=== PATIENT | female | born 1965 | race Caucasian/White ===

== ENCOUNTER 2022-12-19 18:45 | Emergency (ER) | payer BC, SELFPAY ==
[2022-12-19] VITALS (15 sets, daily range): BP systolic 136–209; BP diastolic 83–116; PULSE 94; RESP 24; TEMP 36.8; O2SAT 97; BMI 45.3
--- NOTE | 2022-12-19 19:54 | ED.BACK1 ---
HPI - Back Pain/Injury General Chief Complaint: Back Pain/Injury Stated Complaint: BACK PAIN Time Seen by Provider: 12/19/22 19:54 Source: patient Mode of arrival: ambulance Limitations: no limitations History of Present Illness HPI Narrative: patient presents with left sided back pain for a couple of days. Does not recall any injury. Increased pain with change in position. No urinary symptoms. Today her took her BP and it was elevated over 170 and he brought her in. no chest pain , dyspnea or nausea. No pain or numbness of her lower extremities. No fever or chills. Denies NELSON. Her only complaint is her back pain MD elicited complaint: Reports back pain Severity: moderate Similar Symptoms Previously: No Related Data Home Medications Medication Instructions Recorded Confirmed carvedilol 12.5 mg tablet 12.5 mg PO Q12H 12/19/22 12/19/22 furosemide 40 mg tablet 40 mg PO DAILY 12/19/22 12/19/22 hydroxychloroquine 200 mg tablet 200 mg PO DAILY 12/19/22 12/19/22 sacubitril 49 mg-valsartan 51 mg 1 tab PO BID 12/19/22 12/19/22 tablet (Entresto) tizanidine 4 mg tablet 8 mg PO .hs PRN muscles cramps 12/19/22 12/19/22 Allergies Allergy/AdvReac Type Severity Reaction Status Date / Time clobetasol [From Embeline] Allergy Severe shortness Verified 12/19/22 18:52 of breath sulfamethoxazole Allergy Severe Hives Verified 12/19/22 18:52 [From Bactrim] trimethoprim [From Bactrim] Allergy Severe Hives Verified 12/19/22 18:52 Review of Systems ROS Status of ROS 10 or more systems reviewed and unremarkable except as noted in history and below [facility] PFS Social History Smoking status: Never smoker Exam Constitutional Vital Signs - 24 hr 12/19/22 18:52 12/19/22 20:35 12/19/22 20:33 Temperature 98.2 F Pulse Rate [Monitor] 94 H Respiratory Rate 24 Blood Pressure 200/104 H 200/104 H Blood Pressure [Left Arm] 209/94 H Pulse Oximetry 97 Oxygen Delivery Method Room Air 12/19/22 20:51 12/19/22 21:02 12/19/22 21:53 Temperature Pulse Rate [Monitor] Respiratory Rate Blood Pressure 191/115 H 172/114 H 174/99 H Blood Pressure [Left Arm] Pulse Oximetry Oxygen Delivery Method 12/19/22 22:01 12/19/22 22:12 12/19/22 22:21 Temperature Pulse Rate [Monitor] Respiratory Rate Blood Pressure 144/83 H 176/116 H 156/90 H Blood Pressure [Left Arm] Pulse Oximetry Oxygen Delivery Method 12/19/22 22:31 12/19/22 22:31 12/19/22 22:42 Temperature Pulse Rate [Monitor] Respiratory Rate Blood Pressure 136/102 H 136/102 H 152/99 H Blood Pressure [Left Arm] Pulse Oximetry Oxygen Delivery Method 12/19/22 22:51 12/19/22 23:02 12/19/22 23:21 Temperature Pulse Rate [Monitor] Respiratory Rate Blood Pressure 173/97 H 169/86 H 170/96 H Blood Pressure [Left Arm] Pulse Oximetry Oxygen Delivery Method HENMT Common normals: normocephalic and head/scalp atraumatic Face and sinus: normal facial exam Eye Common normals: PERRL, EOMs intact bilaterally and conjunctivae normal Neck & C-Spine Common normals: full ROM and supple Chest Common normals: inspection of chest normal Other: left posterior chest wall and left parathoracic tenderness that reproduce symptoms. No CVA tenderness Respiratory Common normals: normal respiratory effort and no use of accessory muscles Cardio Common normals: regular rate, regular rhythm, S1 normal heart sound and S2 normal heart sound GI Common normals: Normal to inspection, nondistended, normoactive bowel sounds present and soft to palpation Back & Pelvis Common normals: no CVA tenderness and thoracic and lumbar spine normal to inspection Back image (female): 1. area of tenderness Extremity Common normals: normal to inspection, full ROM and normal capillary refill Neuro Common normals: oriented x3, CN's II-XII intact bilaterally, moves all extremities and no focal motor deficits Psych Appearance: grossly normal and well kempt Course Vital Signs Vital signs: Vital Signs Temperature 98.2 F 12/19/22 18:52 Pulse Rate 94 H 12/19/22 18:52 Respiratory Rate 24 12/19/22 18:52 Blood Pressure 209/94 H 12/19/22 18:52 Pulse Oximetry 97 12/19/22 18:52 Oxygen Delivery Method Room Air 12/19/22 18:52 Temperature 98.2 F 12/19/22 18:52 Pulse Rate 94 H 12/19/22 18:52 Respiratory Rate 24 12/19/22 18:52 Blood Pressure 170/96 H 12/19/22 23:21 Pulse Oximetry 97 12/19/22 18:52 Oxygen Delivery Method Room Air 12/19/22 18:52 MDM - Back Pain/Injury MDM Narrative Medical decision making narrative: patient presents with left pos. chest wall muscular back pain. She also was hypertensive with BP systolic >200. No chest pain or headache. Not short of breath. CTA chest neg for PE. Patient clinically does not have pneumonia. BP improved after one dose of hydralazine IVP. Patient still has pain after treatment in the department but it is decreased and now tolerable. Discharged home with Norflex and advised to follow up with her PCP reguarding her back pain and hypertension Lab Data Labs: Lab Results 12/19/22 Range/Units 20:15 WBC 10.6 (4.0-11.0) 10^3/uL RBC 3.83 L (4.20-5.40) 10^6/uL Hgb 12.1 (12.0-16.0) g/dL Hct 36.1 (36.0-48.0) % MCV 94.3 (81.0-99.0) fL MCH 31.6 (26.7-34.0) pg MCHC 33.5 (29.9-35.2) g/dL RDW 13.6 (11.0-15.0) % Plt Count 220 (150-450) 10^3/uL MPV 9.6 (9.5-13.5) fL Neut % (Auto) 76.1 H (43.0-75.0) % Lymph % (Auto) 13.6 L (20.5-60.0) % [place] % (Auto) 6.0 (1.7-12.0) % Eos % (Auto) 1.8 (0.9-7.0) % Baso % (Auto) 0.7 (0.2-2.0) % Neut # (Auto) 8.1 H (1.4-6.5) 10^3/uL Lymph # (Auto) 1.4 (1.2-3.8) 10^3/uL [place] # (Auto) 0.6 (0.3-0.8) 10^3/uL Eos # (Auto) 0.2 (0.0-0.7) 10^3/uL Baso # (Auto) 0.1 (0.0-0.1) 10^3/uL Sodium 140 (136-145) mmol/L Potassium 3.6 (3.5-5.1) mmol/L Chloride 105 (98-107) mmol/L Carbon Dioxide 25.8 (21.0-32.0) mmol/L Anion Gap 12.8 BUN 15.0 (7.0-18.0) mg/dL Creatinine 0.99 (0.55-1.02) mg/dL Est GFR ( Amer) >60 (>=60) Est GFR (Non-Af Amer) 58 L (>=60) BUN/Creatinine Ratio 15.2 Glucose 226 H (74-106) mg/dL Calcium 8.7 (8.5-10.1) mg/dL Total Bilirubin 0.4 (0.2-1.0) mg/dL AST 14 L (15-37) U/L ALT 47 (14-59) U/L Total Protein 6.5 (6.4-8.2) g/dL Albumin 3.3 L (3.4-5.0) g/dL Globulin 3.2 g/dL Albumin/Globulin Ratio 1.0 Discharge Plan Discharge Chief Complaint: Back Pain/Injury Clinical Impression: Hypertensive urgency, Strain of thoracic paraspinal muscles excluding T1 and T2 levels Prescriptions / Home Meds: No Action carvedilol 12.5 mg tablet 12.5 mg PO Q12H furosemide 40 mg tablet 40 mg PO DAILY hydroxychloroquine 200 mg tablet 200 mg PO DAILY Entresto 49-51 mg tablet 1 tab PO BID tizanidine 4 mg tablet 8 mg PO .hs PRN (Reason: muscles cramps) Instructions: Hypertension (ED), Thoracic Back Strain (ED) Stand Alone Forms: Portal Instructions Referrals: Ti Garza MD [Primary Care Provider] - 1 week Follow Up Appointments: follow up with your doctor in the next couple of days for recheck
--- NOTE | 2022-12-19 20:03 | CT_ITS ---
[address] [address] Patient Name: FELICITY PHILLIPS MRN: [id number] date: 1965 Sex: F Assigned Patient Location: ER Current Patient Location: ER Accession/Order Number: [id number] Exam Date: 12/19/2022 21:00 Report Date: 12/19/2022 22:41 At the request of: BC GUERRERO Procedure: CT angio chest EXAM: CT angio chest HISTORY: chest pain COMPARISON: CT chest 03/23/2017. TECHNIQUE: Thin section transaxial slices were acquired through the chest with intravenous contrast per PE protocol. Coronal and sagittal reconstructed images were reviewed. FINDINGS: PULMONARY ARTERIES: There is good opacification of the pulmonary vasculature. No pulmonary arterial filling defects are present. LUNGS/AIRWAYS: No areas of consolidation, suspicious nodule or mass are seen. There is mild bronchial wall thickening in bilateral lower lobes. Mild bibasilar atelectasis is seen. The central airways are patent. PLEURAL CAVITY: No pleural effusion or pneumothorax. HEART/PERICARDIUM: The heart is normal in size. No pericardial effusion. MEDIASTINAL/HILAR LYMPH NODES: No pathologically enlarged lymph nodes. CHEST WALL/AXILLA/LOWER NECK: Normal. VISUALIZED UPPER ABDOMEN: No acute abnormality. BONES: No acute process.. IMPRESSION: 1. No evidence of pulmonary embolism. 2. No evidence of pneumonia. Mild bronchial wall thickening in bilateral lower lobes, suggestive of viral or reactive small airways disease, in the appropriate clinical settings. Electronically authenticated by: CHON TYSONU Date: 12/19/2022 22:41
[2022-12-19 20:26] LABS: Basophils Absolute Auto 0.1 10^3/uL (0.0-0.1); Basophils Percent Auto 0.7 % (0.2-2.0); Eosinophils Absolute Auto 0.2 10^3/uL (0.0-0.7); Eosinophils Percent Auto 1.8 % (0.9-7.0); Hematocrit 36.1 % (36.0-48.0); Hemoglobin 12.1 g/dL (12.0-16.0); Immature Granulocytes Abs Auto 0.19 10^3/uL (0.00-0.03); Immature Granulocytes Pct Auto 1.8 % (0.0-0.5); Lymphocytes Absolute Auto 1.4 10^3/uL (1.2-3.8); Lymphocytes Percent Auto 13.6 % (20.5-60.0); Mean Corpuscular HGB Conc 33.5 g/dL (29.9-35.2); Mean Corpuscular Hemoglobin 31.6 pg (26.7-34.0); Mean Corpuscular Volume 94.3 fL (81.0-99.0); Mean Platelet Volume 9.6 fL (9.5-13.5); Monocytes Absolute Auto 0.6 10^3/uL (0.3-0.8); Neutrophils Absolute Auto 8.1 10^3/uL (1.4-6.5); Neutrophils Percent Auto 76.1 % (43.0-75.0); Platelet Count 220 10^3/uL (150-450); Red Blood Count 3.83 10^6/uL (4.20-5.40); Red Cell Distribution Width 13.6 % (11.0-15.0); White Blood Count 10.6 10^3/uL (4.0-11.0)
[2022-12-19] MEDS: ORPHENADRINE 60 MG/ 2 ML VIAL IV (20:30)
[2022-12-19] MEDS: HYDRALAZINE HCL 20 MG/ML VIAL 5 MG IVP (20:35)
[2022-12-19 20:43] LABS: Alanine Aminotransferase 47 U/L (14-59); Albumin Level 3.3 g/dL (3.4-5.0); Alkaline Phosphatase 115 U/L (46-116); Anion Gap 12.8; Aspartate Amino Transferase 14 U/L (15-37); BUN Creatinine Ratio 15.2; Bilirubin Total 0.4 mg/dL (0.2-1.0); Calcium 8.7 mg/dL (8.5-10.1); Carbon Dioxide 25.8 mmol/L (21.0-32.0); Chloride 105 mmol/L (98-107); Estimated GFR (African America >60 (>=60); Estimated GFR (Non-African Ame 58 (>=60); Globulin 3.2 g/dL; Glucose 226 mg/dL (74-106); Potassium 3.6 mmol/L (3.5-5.1); Sodium 140 mmol/L (136-145); Total Protein 6.5 g/dL (6.4-8.2)
[2022-12-19] MEDS: FENTANYL CITRATE/PF 100 MCG/2 ML VIAL 50 MCG IV (21:46)
[2022-12-20 00:40] VITALS: BP 159/91; PULSE 87; RESP 18; O2SAT 98
== END 2022-12-20 00:43 | disposition home or self-care (01) ==
PROVIDERS: Emergency Provider Internal Medicine; PCP Family Medicine
DX: I16.0 Hypertensive urgency (principal); S29.012A Strain of muscle and tendon of back wall of thorax, initial encounter; X58.XXXA Exposure to other specified factors, initial encounter
CPT/HCPCS: 36415; 71275; 80053; 85025; 96372; 96374; 96375; 99285; Q9967

== ENCOUNTER 2023-06-21 11:20 | Outpatient (OUT) | payer BC, SELFPAY ==
--- NOTE | 2023-06-21 11:33 | XR_ITS ---
The [address] [address] Patient Name: FELICITY PHILLIPS MRN: [id number] date: 1965 Sex: F Assigned Patient Location: [facility] Current Patient Location: Accession/Order Number: [id number] Exam Date: 06/21/2023 11:35 Report Date: 06/22/2023 01:30 At the request of: JOSE ANTONIO QUINN Procedure: XR hip RT 2V w/ pelvis PROCEDURE: XR hip RT 2V w/ pelvis HISTORY: Acute Right Hip Pain M25.551 ; low back pain; history of pelvic fracture COMPARISON: XR hips bilateral 02/15/2022, CT pelvis 11/13/2022 FINDINGS: BONES:Prior fractures with callus formation and incomplete osseous healing of the right superior and inferior pubic rami no significant narrowing of the hip joint spaces or articular surface irregularity. No new fracture. SOFT TISSUES:No visible soft tissue swelling. EFFUSION:None visible. OTHER: Negative. XR/XR hip RT 2V w/ pelvis IMPRESSION: 1. Prior fractures of the right superior and inferior pubic rami with surrounding bone formation,, corticated fracture ends, and wide fracture lines suggesting continued motion at fracture sites and pseudoarticulation. Electronically authenticated by: JOSÉ MIGUEL SERNA Date: 06/22/2023 01:30
--- NOTE | 2023-06-21 11:33 | XR_ITS ---
[address] [address] Patient Name: FELICITY PHILLIPS MRN: [id number] date: 1965 Sex: F Assigned Patient Location: [facility] Current Patient Location: [facility] Accession/Order Number: [id number] Exam Date: 06/21/2023 11:36 Report Date: 06/21/2023 12:47 At the request of: JOSE ANTONIO QUINN Procedure: XR lumbar spine 2-3V EXAM: XR lumbar spine 2-3V HISTORY: Acute Right Hip Pain M25.551 COMPARISON: None. TECHNIQUE: 2 views Findings/impression: Anterolisthesis of L4 over L5 by 8 mm. Maintained vertebral body heights. Multilevel endplate degenerative changes, disc disease, and facet arthropathy of L4-S1. No acute fracture. Nonobstructive bowel gas pattern. Electronically authenticated by: TORI RANDOLPH Date: 06/21/2023 12:47
== END 2023-06-21 11:21 | disposition home or self-care (01) ==
LOC: RAD 11:21
PROVIDERS: PCP Family Medicine; Visit Provider Family Medicine
DX: M25.551 Pain in right hip (principal)
CPT/HCPCS: 72100; 73502

== ENCOUNTER 2023-06-29 06:47 | Outpatient (OUT) | payer BC, SELFPAY ==
--- NOTE | 2023-06-29 06:51 | MR_ITS ---
[place] [id number] Patient Name: FELICITY PHILLIPS MRN: [id number] date: 1965 Sex: F Assigned Patient Location: MRI Current Patient Location: MRI Accession/Order Number: [id number] Exam Date: 06/29/2023 07:00 Report Date: 06/29/2023 09:22 At the request of: JOSE ANTONIO QUINN Procedure: MR lumbar spine wo con TITLE: MR lumbar spine wo con COMPARISON: 2020 lumbar spine MRI CLINICAL HISTORY: Degenerative disc disease M51.36. Back pain radiating to the lower extremity TECHNIQUE: Sagittal T1, sagittal T2 FSE, sagittal STIR, and axial T2 FSE. FINDINGS: 6 mm anterolisthesis L4 on L5. Disc space narrowing and mild type II Modic endplate marrow changes. Disc desiccation at the lower thoracic spine as well as L3-4 and L4-5. The conus medullaris terminates at L1 and appears unremarkable. Disc desiccation mild disc bulges at T10-11 and T11-12. No obvious stenosis. T12-L1: Normal disc space. No stenosis L1-L2:Normal disc space. No stenosis. L2-3: Tiny central disc protrusion. No significant stenosis L3-4: Disc desiccation. Mild left paracentral disc protrusion. Bilateral facet hypertrophy. No significant stenosis L4-5: Diffuse disc bulge extending cephalad above the disc space. Lateral osteophyte and disc formation. No listhesis is due to moderate bilateral facet hypertrophy. Fluid in the articular facets. Moderate to severe central canal and right-sided foraminal narrowing. Moderate left L5-S1: Normal disc space. Bilateral facet hypertrophy. No significant stenosis MR/MR lumbar spine wo con IMPRESSION: DEGENERATIVE CHANGES OF THE LUMBAR SPINE MOST L3-4 AND L4-5 DISC DESICCATION AND SMALL DISC PROTRUSION L3-4 FACET HYPERTROPHY, BROAD-BASED DISC BULGE AND FACET HYPERTROPHY L4-5. MODERATE TO SEVERE CENTRAL CANAL AND RIGHT FORAMINAL NARROWING Electronically authenticated by: TORRES TELLES Date: 06/29/2023 09:22
== END 2023-06-29 06:48 | disposition home or self-care (01) ==
LOC: MRI 06:48
PROVIDERS: PCP Family Medicine; Visit Provider Family Medicine
DX: M51.36 Other intervertebral disc degeneration, lumbar region (principal)
CPT/HCPCS: 72148

== ENCOUNTER 2023-08-08 08:09 | Outpatient (OUT) | payer BC, SELFPAY ==
--- NOTE | 2023-08-08 | XR_ITS ---
The [address] [address] Patient Name: FELICITY PHILLIPS MRN: [id number] date: 1965 Sex: F Assigned Patient Location: [facility] Current Patient Location: [facility] Accession/Order Number: [id number] Exam Date: 08/08/2023 08:23 Report Date: 08/08/2023 08:49 At the request of: JOSÉ MIGUEL WISDOM Procedure: XR pelvis 1-2V PROCEDURE: XR pelvis 1-2V DATE: 08/08/2023 8:23 AM EST COMPARISONS: 06/21/2023 CLINICAL INDICATION: PELVIS PAIN FINDINGS: There is again deformity of the superior and inferior pubic rami. There is lucency of the superior and inferior pubic rami consistent with fractures. There is callus formation adjacent to these fractures. There is corticated margins of the fracture site. The findings suggests residual deformity from old fractures possibly with nonunion and continued pseudoarticulation at the fracture sites. The amount of callus formation has progressed slightly since 06/21/2023 5 the lucency at the fracture sites has not changed significantly. No new osseous abnormalities identified. XR/XR pelvis 1-2V IMPRESSION: Deformity of the superior and inferior pubic ramus on the right as discussed above. 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 Electronically authenticated by: LUKAS ARRIOLA Date: 08/08/2023 08:49
--- OUTSIDE RECORDS SUMMARY | 2023-08-08 08:18 | XMS_ITS | CCD ---
Author Name Unknown Address [address] [place] [address] Organization [facility] Care Team Providers Care Client Service Administrator Name Role Phone PHYSICIAN, DEFAULT Unavailable Unavailable PHYSICIAN, DEFAULT Unavailable Unavailable CEASAR CUNHA Attending Unavailab JOSE ANTONIO Romero Referring Unavailable CEASAR CUNHA Attending Unavailab JOSE ANTONIO Romero Referring Unavailable UNKNOWN, PROVIDER Attending Unavailable UNKNOWN, PROVIDER Primary Care Unavailable Jose Antonio Garza Unavailable Unavailable Unavailable MD Jose Antonio Garza Primary Care Provider MD Kyle Calderon Attending Provider Jose Antonio Garza Primary Care Physician MD Jose Antonio Garza Primary Care Provider MATTHEW Bridges Emergency Provider MD Kyle Call II Attending Provider Kyle Call II Unavailable MD Jose Antonio Garza Primary Care Provider MATTHEW Bridges Emergency Provider MD Kyle Call II Attending Provider MD Jose Antonio Garza Primary Care Provider MD Kyle Call II Attending Provider [phone] MD Kyle Calderon Attending Provider DR JOSE ANTONIO SHINE Attending Unavailable HOY ., DR BRADY Consulting Unavailable HOY ., DR BRADY Primary Care Unavailable HOY ., DR BRADY Admitting Unavailable HOY ., DR BRADY Primary Care Unavailable NILL ., DR MCCLAIN Attending Unavailable NILL ., DR MCCLAIN Consulting Unavailable NILL ., DR MCCLAIN Admitting Unavailable HOY ., DR BRADY Consulting Unavailable HOY ., DR BRADY Primary Care Unavailable HOY ., DR BRADY Admitting Unavailable HOY ., DR BRADY Attending Unavailable ZIEBER, DR JOSÉ MIGUEL Arias Consulting Unavailable HOY ., DR BRADY Attending Unavailable HOY ., DR BRADY Consulting Unavailable HOY ., DR BRADY Primary Care Unavailable HOY ., DR BRADY Admitting Unavailable ZIEBER, DR JOSÉ MIGUEL Arias Consulting Unavailable HOY ., DR BRADY Attending Unavailable HOY ., DR BRADY Primary Care Unavailable HOY ., DR BRADY Admitting Unavailable HOY ., DR BRADY Attending Unavailable HOY ., DR BRADY Consulting Unavailable HOY ., DR BRADY Primary Care Unavailable HOY ., DR BRADY Admitting Unavailable BURNS, DR UNA Mims Consulting Unavailable Steffi Nancy Unavailable Maxi Glez Unavailable MD Jose Antonio Garza Primary Care Provider [phone] Mamadou Gonzalez Attending Unavailable Jose Antonio Garza Referring Unavailable NILL, Jose Carlos Arias Attending Unavailable NILL, Jose Carlos Arias Attending Unavailable NILL, Jose Carlos R Attending Unavailable Briana Winters Attending Unavailable MD Jose Antonio Garza Primary Care Provider [phone] MD Kyle Calderon Attending Provider Jose Antonio Garza MD Primary Care Provider [phone] AMANUEL VALLADARES Attending Unavailable JOSE ANTONIO GARZA Primary Care Unavailable MD Jose Antonio Garza Primary Care Provider [phone] MD Kyle Calderon Attending Provider [phone] MD Stef Molina Jr Emergency Provider Kyle Call II Admitting UnavailKyle Ayala II Attending Unavailabl e Jose Antonio Garza Primary Care Unavailable Jose Antonio Garza Primary Care Unavailable Kyle Call II Admitting UnavailKyle Ayala II Attending UnavailStef [place] Jr Attending Unavailable Jose Antonio Garza Primary Care Unavailable Stef Molina Jr Admitting Unavailable Jose Antonio Garza Primary Care Unavailable Narayan Bridges Admitting Unavailable Narayan Bridges Attending Unavailable Jose Antonio Garza Primary Care Unavailable Kyle Call II Attending UnavailKyle Ayala II M Admitting Unavailratna e Jose Antonio Garza Primary Care Unavailable Kvng, Kyle Admitting Unavailable Kvng, Kyle Attending Unavailable Kayla Jose Antonio M Primary Care Unavailable Kvng, Kyle Admitting Unavailable Kvng, Kyle Attending Unavailable Jose Antonio Garza M Primary Care Unavailable Kvng, Kyle Admitting Unavailable MiguelyKyle Attending Unavailable BRITTANY CHOUDHURY Attending Unavailable BRITTANY CHOUDHURY Referring Unavailable BRITTANY CHOUDHURY Attending Unavailable BRITTANY CHOUDHURY Attending Unavailable BRITTANY CHOUDHURY Referring Unavailable Allergies Allergy Classification Reported Allergen(s) Allergy Type Date of Onset Reaction(s) Facility (12 sources) Sulfamethoxazole / Trimethoprim; Translations: [SULFAMETHOXAZOLE-TR IMETHOPRIM] Drug Allergy 7 [facility] Repository (20 sources) Etanercept; Translations: [etanercept] Drug Allergy 1 Unknown (qualifier value), Unknown [facility] (20 sources) Methotrexate; Translations: [methotrexate] Drug Allergy 1 Unknown [facility] (20 sources) Sulfamethoxazole / Trimethoprim; Translations: [Bactrim DS TABS] Drug Allergy [facility] (10 sources) Sulfamethoxazole; Translations: [sulfamethoxazole] Drug Allergy 7 [facility] (10 sources) Trimethoprim; Translations: [trimethoprim] Drug Allergy 7 [facility] (2 sources) Etanercept; Translations: [Enbrel] Drug Allergy 1 [facility] Repository (1 source) Methotrexate Drug Allergy 1 [facility] Repository (3 sources) Sulfamethoxazole / Trimethoprim; Translations: [Bactrim] Drug Allergy 4 [facility] Repository (1 source) Etanercept Drug Allergy 3 [facility] Repository (1 source) Methotrexate Drug Allergy 3 [facility] Repository Medications Current Medications Medication Drug Class(es) Dates Sig (Normalized) Sig (Original) 0.4 ml abatacept 125 mg/ml prefilled syringe (17 sources) Selective T Cell Costimulation Modulator Start: 08-17-2019 Abatacept (Orencia) 50 mg/0.4 mL Syringe Active INJECTION August 17, 2019 12:00am acetaminophen 325 mg / HYDROcodone bitartrate 5 mg oral tablet (11 sources) Opioid Agonist Start: 12-04-2017 take 1 tablet by mouth every six hours Hydrocodone-Acet aminophen Active 1 TAB PO Q6H 10 2 July 05, 2022 Calcium + D 500-1000-40 MG-UNT-MCG (8 sources) Calcium + D 500-1000-40 MG-UNT-MCG Orally Active Cane (7 sources) Start: 07-05-2022 Cane Active 0 .Route 1 July 05, 2022 1:00am As directed Start: 07-05-2022 Cane Active 0 .Route July 05, 2022 12:00am As directed carvedilol 12.5 mg oral tablet (20 sources) alpha-Adrenergic Azalea, beta-Adrenergic Azalea Start: 05-11-2023 take 1 tablet by mouth twice daily carvedilol (Coreg) 12.5 mg tablet Indications: Non-ischemic cardiomyopathy (CMS/HCC) Take 1 tablet (12.5 mg) by mouth 2 times a day. 180 tablet 3 05/11/2023 Active Start: 05-05-2023 End: 05-11-2023 take 1 tablet by mouth twice daily carvedilol (Coreg) 12.5 mg tablet Indications: Non-ischemic cardiomyopathy (CMS/HCC) Take 1 tablet by mouth twice daily 180 tablet 3 05/05/2023 05/11/2023 Discontinued (Reorder) Start: 08-28-2020 take 1 tablet by neida th twice daily Carvedilol 12.5 MG Oral Tablet TAKE 1 TABLET TWICE DAILY. Quantity: 180 Refills: 3 Ordered: 18-Mar-2022 Frandy Fung DO Start : 28-Aug-2020 Active Start: 08-17-2019 take 1 tablet by neida th once daily Carvedilol Active 1 TAB PO Daily August 17, 2019 12:00am Start: 03-25-2017 End: 10-21-2017 take 6.25 mg by mouth twice daily Carvedilol Discontinued 6.25 MG PO Twice daily 60 March 24, 2017 11:00pm October 20, 2017 11:01pm ciprofloxacin 500 mg oral tablet (1 source) Quinolone Antimicrobial Start: 05-19-2022 End: 05-28-2022 take 1 tablet by mouth every twelve hours Cipro 500 mg Tab 500 mg = 1 tab(s), Oral, q12hr, X 9 day(s), Refills(s) 0 Start Date: 05/19/22 Stop Date: 05/28/22 Status: Ordered cyclobenzaprine hydrochloride 5 mg oral tablet (2 sources) Muscle Relaxant Start: 11-26-2022 take 1 tablet by mouth every twenty-four hours Cyclobenzaprine HCl 5 MG 1 tablet at bedtime as needed Orally Once a day for 30 day(s) November, Active doxycycline monohydrate 100 mg oral tablet (2 sources) Tetracycline-class Drug Start: 02-24-2023 End: 03-06-2023 take 1 tablet by mouth twice daily doxycycline monohydrate 100 mg oral tablet 100 mg = 1 tab(s), Oral, BID, X 10 day(s), # 20 tab(s), Refills(s) 0, Pharmacy: [facility], 155, cm, 02/24/23 12:00:00 EDT, Height/Length Dosing, 108.2, kg, 02/24/23 12:00:00 EDT, Weight Dosing Start Date: 02/24/23 Stop Date: 03/06/23 Status: Ordered Start: 05-19-2022 End: 05-28-2022 take 1 capsule by mouth twice daily doxycycline hyclate 100 mg Cap 100 mg = 1 cap(s), Oral, BID, X 9 day(s), Refills(s) 0 Start Date: 05/19/22 Stop Date: 05/28/22 Status: Ordered Enbrel (9 sources) Tumor Necrosis Factor Azalea Start: 05-29-2010 inject 50 mg by subcutaneous injection every week Enbrel 50 mg, SubCutaneous, qWeek, Refills(s) 0 Start Date: 05/29/10 Status: Ordered Enbrel 25 MG Sub cutaneous Active folic acid 1 mg oral tablet (9 sources) Start: 12-05-2016 take 1 tablet by mouth once daily folic acid 1 mg Tab 1 mg = 1 tab(s), Oral, Daily, Refills(s) 0, Prophylaxis Start Date: 12/05/16 Status: Ordered take 1 tablet by neida th every twenty-four hours Folic Acid 400 MCG 1 tablet Orally Once a day Active furosemide 40 mg oral tablet (20 sources) Loop Diuretic Start: 05-11-2023 take 1 tablet by mouth once daily furosemide (Lasix) 40 mg tablet Indications: Non-ischemic cardiomyopathy (CMS/HCC) , Hypertension, unspecified type , SOB (shortness of breath) on exertion Take 1 tablet (40 mg) by mouth once daily. 90 tablet 3 05/11/2023 Active Start: 01-22-2022 End: 05-11-2023 take 1 tablet by mouth once daily furosemide (Lasix) 40 mg tablet Indications: Non-ischemic cardiomyopathy (CMS/HCC) , Hypertension, unspecified type , SOB (shortness of breath) on exertion Take 1 tablet by mouth once daily 90 tablet 3 05/03/2023 05/11/2023 Discontinued (Reorder) Start: 03-24-2017 take 40 mg by mouth once daily Furosemide Active 40 MG PO Daily March 23, 2017 11:00pm Start: 12-07-2016 take 1 tablet by neida th once daily Lasix 20 mg Tab 20 mg = 1 tab(s), Oral, Daily, # 30 tab(s), Refills(s) 0, Pharmacy: [facility] Start Date: 12/07/16 Status: Ordered homatropine methylbromide 0.3 mg/ml / HYDROcodone bitartrate 1 mg/ml oral solution (1 source) Opioid Agonist, Cholinergic Muscarinic Agonist Start: 05-31-2023 take 1 mL by mouth every six hours Hydrocodone-Homatropine Active 5 ML PO Q6H 100 May 31, 2023 ibuprofen 600 mg oral tablet (8 sources) Nonsteroidal Anti-inflammatory Drug Start: 04-30-2015 Ibuprofen 600 MG 1 tablet Orally 2-3 times per day, prn for 14 days Apr, Active leflunomide 20 mg oral tablet (20 sources) Antirheumatic Agent Start: 03-24-2017 take 20 mg by mouth once daily Leflunomide Active 20 MG PO Daily March 23, 2017 11:00pm lidocaine 0.05 mg/mg medicated patch (2 sources) Antiarrhythmic, Amide Local Anesthetic Start: 11-26-2022 Lidocaine 5 % 1 patch remove after 12 hours Externally Once a day for 15 days November, Active lisinopril 5 mg oral tablet (17 sources) Angiotensin Converting Enzyme Inhibitor Start: 03-24-2017 take 5 mg by mouth twice daily Lisinopril Active 5 MG PO Twice daily March 23, 2017 11:00pm take 1 tablet by neida th every twenty-four hours Lisinopril 5 MG 1 tablet Orally Once a day Active methotrexate 15 mg oral tablet (1 source) Folate Analog Metabolic Inhibitor Start: 12-05-2016 take 15 mg by mouth every week methotrexate 15 mg, Oral, qWeek, Refills(s) 0, Arthritis Start Date: 12/05/16 Status: Ordered Multivitamins (8 sources) Multivitamins Orally Active naproxen 500 mg oral tablet (2 sources) Nonsteroidal Anti-inflammatory Drug Start: 12-04-2017 take 1 tablet by mouth twice daily as needed for pain Naprosyn 500 mg Tab 500 mg = 1 tab(s), Oral, BID, PRN for pain, # 20 tab(s), Refills(s) 0, Pharmacy: [facility], 152.4, cm, 05/21/21 7:42:00 EDT, Height/Length Dosing, 102.5, kg, 05/21/21 7:42:00 EDT, Weight Dosing Start Date: 05/21/21 Status: Ordered Nirmatrelvir-Ritonav ir (1 source) Start: 05-31-2023 Nirmatrelvir-Ritona vir (Paxlovid (Eua)) 300 mg (150 mg x 2)-100 mg tablet Active 0 PO .COMPLEX May 31, 2023 12:00am take TWO 150 mg tablets of nirmatrelvir with ONE 100 mg tablet of ritonavir twice daily for 5 days predniSONE 20 mg oral tablet (18 sources) Start: 04-28-2023 take 1 tablet by mouth every twenty-four hours as needed predniSONE (Deltasone) 5 mg tablet Take 1 tablet (5 mg) by mouth once daily as needed. 0 04/28/2023 Active Start: 07-05-2022 take 40 mg by mouth once daily in the morning Prednisone Active 40 MG PO Every morning 04 21May 31, 2023 12:00am administer with food or milk Start: 12-07-2016 predniSONE 10 mg Tab 0 = 1 -, Oral, As Directed, 6tab/day x7days,5tab/day x7days,4tab/day x7day,3tab/day x7day,2tab/day x7day,1tab/yvap5npt, # 119 tab(s), Refills(s) 0, Pharmacy: [facility] Start Date: 12/07/16 Status: Ordered take 1 tablet by neida every twenty-four hours predniSONE 20 MG 1 tablet Orally Once a day Active Rituxan (2 sources) [id number] Cytolytic Antibody Start: 05-19-2022 Rituxan Refills(s) 0 Start Date: 05/19/22 Status: Ordered sacubitril 49 mg / valsartan 51 mg oral tablet (13 sources) Angiotensin 2 Receptor Azalea Start: 05-11-2023 take 1 tablet by mouth twice daily Entresto 49-51 mg tablet Indications: Non-ischemic cardiomyopathy (CMS/HCC) Take 1 tablet by mouth 2 times a day. 180 tablet 3 05/11/2023 Active Start: 05-19-2022 End: 05-11-2023 take 1 tablet by mouth twice daily Entresto 49 mg-51 mg oral tablet 1 tab(s), Oral, BID, Refill(s) 0 Start Date: 05/19/22 Status: Ordered spironolactone 25 mg oral tablet (20 sources) Aldosterone Antagonist Start: 05-11-2023 take 1 tablet by mouth once daily spironolactone (Aldactone) 25 mg tablet Indications: Non-ischemic cardiomyopathy (CMS/HCC) Take 1 tablet (25 mg) by mouth once daily. 90 tablet 3 05/11/2023 Active Start: 03-25-2017 End: 05-11-2023 take 1 tablet by mouth once daily Spironolactone Active 1 TAB PO Daily August 17, 2019 12:00am Completed/Discontinued Medications Medication Drug Class(es) Dates Sig (Normalized) Sig (Original) cephalexin 500 mg oral capsule (1 source) Cephalosporin Antibacterial Start: 3 take 1 capsule by mouth three times daily Keflex 500 mg Cap 500 mg = 1 cap(s), Oral, TID, Take one capsule by mouth three times a day for ten days, # 30 cap(s), Refills(s) 0, Pharmacy: [facility], 155, cm, 02/24/23 12:00:00 EDT, Height/Length Dosing, 108.2, kg, 02/24/23 12:00:00 EDT, Weight Dosing Start Date: 02/24/23 Status: Ordered hydroxychloroquine sulfate 200 mg oral tablet (20 sources) Antimalarial, Antirheumatic Agent Start: 2 take 1 tablet by mouth once daily Hydroxychloroquine Sulfate 200 MG Oral Tablet TAKE 1 TABLET DAILY. Quantity: 0 Refills: 0 Ordered: 16-Mar-2022 DO Start : 22-Oct-2021 Active Start: 05-29-2010 take 200 mg by mouth twice daily Hydroxychloroquine Active 200 MG PO Twice daily March 23, 2017 11:00pm Problems Active Problems Problem Classification Problem Date Documented Date Episodic/Chronic Allergic reactions (2 sources) Eczema 05-19-2022 Episodic Chronic obstructive pulmonary disease and bronchiectasis (1 source) Bronchitis; Translations: [Bronchitis, not specified as acute or chronic] 05-31-2023 Episodic Congestive heart failure; nonhypertensive (4 sources) Chronic combined systolic and diastolic heart failure; Translations: [Left ventricular systolic dysfunction] 05-19-2022 Chronic Coronary atherosclerosis and other heart disease (9 sources) Angina pectoris; Translations: [Angina pectoris, unspecified] 03-24-2017 Chronic Essential hypertension (19 sources) Hypertensive disorder; Translations: [Unspecified essential hypertension] Onset: 04-28-2023 01-03-2014 Chronic Immunity disorders (2 sources) Immunodeficiency disorder 05-19-2022 Chronic Nonspecific chest pain (9 sources) Chest pain; Translations: [Chest pain, unspecified] 08-17-2019 Episodic Open wounds of extremities (1 source) Laceration of finger without foreign body; Translations: [Laceration without foreign body of unspecified finger without damage to nail, initial encounter] Onset: 05-10-2022 Episodic Other circulatory disease (9 sources) H/O: heart failure; Translations: [Personal history of other diseases of the circulatory system] 08-18-2019 Episodic Other connective tissue disease (1 source) Trochanteric bursitis, right hip Episodic Other fractures (2 sources) Other specified fracture of right pubis, initial encounter for closed fracture Episodic Other fractures (1 source) Other specified fracture of right pubis, subsequent encounter for fracture with routine healing Episodic Other fractures (4 sources) Other specified fracture of right pubis, sequela; Translations: [OTHER SPEC FRACTURE RT PUBIS SEQ] Onset: 11-13-2022 Episodic Other lower respiratory disease (11 sources) Dyspnea on exertion; Translations: [Shortness of breath] Onset: 04-28-2023 05-11-2023 Episodic Other lower respiratory disease (2 sources) Shortness of breath; Translations: [Shortness of breath] Onset: 04-28-2023 Episodic Other non-traumatic joint disorders (7 sources) Hip pain; Translations: [Pain in right hip] 07-05-2022 Episodic Other nutritional; endocrine; and metabolic disorders (12 sources) Body mass index 40+ - severely obese; Translations: [Body Mass Index 40.0-44.9, adult] Onset: 05-19-2022 Chronic Other nutritional; endocrine; and metabolic disorders (13 sources) Morbid obesity; Translations: [Morbid obesity] Onset: 05-10-2023 05-19-2022 Chronic Other nutritional; endocrine; and metabolic disorders (2 sources) Morbid (severe) obesity due to excess calories; Translations: [Morbid (severe) obesity due to excess calories (CMS/HCC)] Onset: 05-10-2023 Chronic Beba-; endo-; and myocarditis; cardiomyopathy (except that caused by tuberculosis or sexually transmitted disease) (20 sources) Cardiomyopathy; Translations: [Other primary cardiomyopathies] Onset: 04-28-2023 08-18-2019 Chronic Beba-; endo-; and myocarditis; cardiomyopathy (except that caused by tuberculosis or sexually transmitted disease) (6 sources) Secondary aortitis; 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] Onset: 04-28-2023 04-28-2023 Episodic Residual codes; unclassified (10 sources) Sleep apnea; Translations: [Unspecified sleep apnea] Onset: 04-28-2023 04-28-2023 Chronic Residual codes; unclassified (1 source) Obstructive sleep apnea syndrome; Translations: [Obstructive sleep apnea (adult) (pediatric)] 05-11-2023 Chronic Residual codes; unclassified (2 sources) Obstructive sleep apnea (adult) (pediatric); Translations: [Obstructive sleep apnea (adult) (pediatric)] Onset: 04-28-2023 Chronic Residual codes; unclassified (9 sources) Family history of cardiac disorder; Translations: [Family history of ischemic heart disease and other diseases of the circulatory system] 08-18-2019 Episodic Rheumatoid arthritis and related disease (5 sources) Rheumatoid arthritis; Translations: [Rheumatoid arthritis, unspecified] Onset: 05-11-2023 05-19-2022 Chronic Screening and history of mental health and substance abuse codes (6 sources) Ex-smoker; Translations: [Personal history of tobacco use] Episodic Comment on above: QUIT 07/19 PPD; Skin and subcutaneous tissue infections (11 sources) Abscess of right axilla; Translations: [Cutaneous abscess of right axilla] Onset: 05-19-2022 Episodic Spondylosis; intervertebral disc disorders; other back problems (3 sources) Inflammation of sacroiliac joint; Translations: [Sacroiliitis, not elsewhere classified] Chronic Spondylosis; intervertebral disc disorders; other back problems (4 sources) Lumbar radiculopathy; Translations: [Radiculopathy, lumbar region] Onset: 11-18-2022 05-19-2022 Episodic Superficial injury; contusion (9 sources) Contusion of elbow; Translations: [Contusion of left elbow, initial encounter] 06-01-2021 Episodic Unclassified (3 sources) lymph node removal 10-10-2012 Unclassified (1 source) Cough, unspecified; Translations: [Cough, unspecified] Onset: 05-31-2023 Unclassified (1 source) Rheumatoid arthritis with rheumatoid factor of multiple sites without organ or systems involvement; Translations: [Rheumatoid arthritis with rheumatoid factor of multiple sites without organ or systems involvement] Onset: 11-03-2022 Unclassified (1 source) Other specified fracture of right pubis, subsequent encounter for fracture with routine healing; Translations: [Other specified fracture of right pubis, subsequent encounter for fracture with routine healing] Onset: 09-29-2022 Unclassified (1 source) Other specified fracture of right pubis, initial encounter for closed fracture; Translations: [Other specified fracture of right pubis, initial encounter for closed fracture] Onset: 07-07-2022 Unclassified (1 source) Pain in right hip; Translations: [Pain in right hip] Onset: 07-05-2022 Viral infection (1 source) Disease caused by 2019-nCoV; Translations: [COVID-19] 05-31-2023 Episodic Viral infection (1 source) COVID-19; Translations: [COVID-19] Onset: 07-03-2022 Past or Other Problems Problem Classification Problem Date Documented Da te Episodic/Chronic Acute bronchitis (4 sources) Acute bronchitis, unspecified; Translations: [ACUTE BRONCHITIS UNSPECIFIED] Onset: 06-30-2022 Episodic Other aftercare (1 source) Encounter for follow-up examination after completed treatment for conditions other than malignant neoplasm; Translations: [Encounter for follow-up examination after completed treatment for conditions other than malignant neoplasm] Onset: 01-30-2018 Episodic Other non-traumatic joint disorders (5 sources) Pain in left hip; Translations: [PAIN IN LEFT HIP] Onset: 02-19-2022 Episodic Other non-traumatic joint disorders (4 sources) Pain in right hip; Translations: [PAIN IN RIGHT HIP] Onset: 02-15-2022 Episodic Unclassified (3 sources) 06-01-2010 Results Test Name Value Interpretation Reference Range Facility COVID-19 / Flu A/B / RSV PCR on 06-01-2023 SARS-CoV-2 (COVID-19) RNA NANCY+probe Ql (Unsp spec) Results called at 2311 on 05/31/23 COVID-19 Cepheid Result Positive for SARS-CoV-2 RNA by RT-PCR Flu A Cepheid Result Negative for Flu A RNA by RT-PCR Flu B Cepheid Result Negative for Flu B RNA by RT-PCR RSV Cepheid Result Negative for RSV RNA by RT-PCR COVID19 Blank Space Reference: Negative COVID19 Blank Space Cepheid Disclaimer [facility] Xpert Xpress CoV-2/Flu/RSV Plus has Cepheid Disclaimer not been FDA cleared or approved; this test has Cepheid Disclaimer been authorized by FDA under an EUA for use by Cepheid Disclaimer authorized laboratories; this test has been Cepheid Disclaimer authorized only for the simultaneous qualitative Cepheid Disclaimer detection and differentiation of nucleic acids from Cepheid Disclaimer SARS-CoV-2, influenza A, influenza B, and Cepheid Disclaimer respiratory syncytial virus (RSV), and not for any Cepheid Disclaimer other viruses or pathogens; and this test is only Cepheid Disclaimer authorized for the duration of the declaration that Cepheid Disclaimer circumstances exist justifying the authorization of Cepheid Disclaimer emergency use of in vitro diagnostic tests for Cepheid Disclaimer detection and/or diagnosis of COVID-19 under Cepheid Disclaimer Section 564(b)(1) of the Act, 21 U.S.C. 360bbb- Cepheid Disclaimer 3(b)(1), unless the authorization is terminated or Cepheid Disclaimer revoked sooner. PERFORMED BY: [place] [address] PATHOLOGIST FEED MILLER TAMERA DAO M.D. Normal [facility] Comment on above: Performed By: #### C OVID19 FLU RSV, CEPHEID POS ####[place] [id number] [facility] Cepheid COVID PCR Positiveon 06-01-2023 SARS-CoV-2 (COVID-19) RNA NANCY+probe Ql (Unsp spec) Positive Critically abnormal Negative [facility] Comment on above: Result Comment: This is a duplicate Cepheid Xpert Xpress CoV-2/Flu/RSV Plus RNA by RT-PCR result to be used for statistical tracking purpose only. PERFORMED BY: [place] [id number] PATHOLOGIST FEED MILLER TAMERA DAO M.D. Performed By: #### C OVID19 FLU RSV, CEPHEID POS ####[address] [address] [facility] XR chest 2V*on 06-01-2023 XR chest 2V* [facility] [address] [place] [address] [place] [address] XRay Report Signed Patient: Felicity Phillips MR#: [id number] [birth year] : 1965 Acct:[id number] Age/Sex: 57 / F ADM Date: 05/31/23 Loc: ER Room: Type: [facility] ER Attending Dr: Copies to: Stef Molina Jr, MD Ordering Provider: Stef Molina Jr, MD Date of Service: 05/31/23 XR/XR chest 2V*: cough, sob PA AND LATERAL CHEST: CLINICAL HISTORY: Cough and fever COMPARISON: 08/17/2019 Assessment is slightly limited by large body habitus. Coarse interstitial changes are again visualized. There is no developing consolidation, effusion or pneumothorax. The cardiac, hilar and mediastinal silhouettes are within normal limits. The visualized bony thorax is intact. End plate spurring is present at the spine. XR/XR chest 2V* IMPRESSION: CONTINUED NONSPECIFIC INTERSTITIAL CHANGE. NO OTHER ACUTE FINDINGS. Impression dictated by: Sally Colón M.D.06/01/2023 7:21 AM Dictation Location: [place] [address] Transcribed By: [facility] 06/01/23720 Dictated By: Sally Colón MD 06/01/23719 Signed By: 06/01/23720 Normal [facility] COVID CepheidOrdered By: Kory Molina on 05-31-2023 SARS-CoV-2 (COVID-19) Ab IA Ql Positive Negative [facility] Comment on above: This is a duplicate [employer] Xpert Xpress CoV-2/Flu/RSV Plus RNA by RT-PCR result to be used for statistical tracking purpose only. SARS-CoV-2 (COVID-19) RNA NANCY+probe Ql (Unsp spec) [facility] Alanine aminotransferase [En zymatic activity/volume] in Serum or PlasmaOrdered By: Kyle Calderon on 04-28-2023 ALT [Catalytic activity/Vol] 58 U/L [facility] Albumin [Mass/volume] in Ser um or Plasma by Bromocresol green (BCG) dye binding methoOrdered By: Kyle Calderon on 04-28-2023 Albumin BCG dye [Mass/Vol] 4.2 g/dL 3.5-5.7 [facility] Alkaline phosphatase [Enzyma tic activity/volume] in Serum or PlasmaOrdered By: Kyle Calderon on 04-28-2023 ALP [Catalytic activity/Vol] 102 U/L 34-104 [facility] Aspartate aminotransferase [ Enzymatic activity/volume] in Serum or PlasmaOrdered By: Kyle Calderon on 04-28-2023 AST [Catalytic activity/Vol] 53 U/L 13-39 [facility] Basophils Auto (Bld) [#/Vol] Ordered By: Kyle Calderon on 04-28-2023 Basophils (Bld) [#/Vol] 0.1 10*3/uL 0.0-0.2 [facility] Basophils/100 WBC Auto (Bld) Ordered By: Kyle Calderon on 04-28-2023 Basophils/100 WBC (Bld) 1.3 % . [facility] Bilirubin.direct [Mass/volum e] in Serum or PlasmaOrdered By: Kyle Calderon on 04-28-2023 Bilirubin.direct [Mass/Vol] 0.10 mg/dL 0.03-0.18 [facility] Bilirubin.total [Mass/volume ] in Serum or PlasmaOrdered By: Kyle Calderon on 04-28-2023 Bilirubin [Mass/Vol] 0.8 mg/dL 0.3-1.0 [facility] Complete Blood Count Auto Di ffon 04-28-2023 Basophils (Bld) [#/Vol] 0.1 10*3/uL Normal 0.0-0.2 [facility] Comment on above: Performed By: #### E SR, CBC, HEPATIC, CREAT ####[facility] [id number] [place] [id number] [facility] Basophils/100 WBC (Bld) 1.3 % Normal . [facility] Comment on above: Performed By: #### E SR, CBC, HEPATIC, CREAT ####[facility] [id number] [place] [address] [facility] Eosinophils (Bld) [#/Vol] 0.2 10*3/uL Normal 0.0-0.45 [facility] Comment on above: Performed By: #### E SR, CBC, HEPATIC, CREAT ####[address] Eosinophils/100 WBC (Bld) 3.2 % Normal . [facility] Comment on above: Performed By: #### E SR, CBC, HEPATIC, CREAT ####[address] Erythrocyte distribution width (RBC) [Ratio] 13.5 % Normal 11.9-15.3 [facility] Comment on above: Performed By: #### E SR, CBC, HEPATIC, CREAT ####[address] Hematocrit (Bld) [Volume fraction] 36.5 % Normal 34.0-46.4 [facility] Comment on above: Performed By: #### E SR, CBC, HEPATIC, CREAT ####[address] Hemoglobin (Bld) [Mass/Vol] 12.3 g/dL Normal 11.8-15.4 [facility] Comment on above: Performed By: #### E SR, CBC, HEPATIC, CREAT ####[address] Lymphocytes (Bld) [#/Vol] 1.5 10*3/uL Normal 1.00-4.8 [facility] Comment on above: Performed By: #### E SR, CBC, HEPATIC, CREAT ####[address] Lymphocytes/100 WBC (Bld) 20.3 % Normal . [facility] Comment on above: Performed By: #### E SR, CBC, HEPATIC, CREAT ####[address] MCH (RBC) [Entitic mass] 31.2 pg Normal 24.7-34.3 [facility] Comment on above: Performed By: #### E SR, CBC, HEPATIC, CREAT ####[address] MCV (RBC) [Entitic vol] 92.2 fL Normal 80-100 [facility] Comment on above: Performed By: #### E SR, CBC, HEPATIC, CREAT ####[address] Mean Corpuscular HGB Conc 33.8 g/dL Normal 32.0-35.0 [facility] Comment on above: Performed By: #### E SR, CBC, HEPATIC, CREAT ####[address] Monocytes (Bld) [#/Vol] 0.6 10*3/uL Normal 0.0-0.8 [facility] Comment on above: Performed By: #### E SR, CBC, HEPATIC, CREAT ####[address] Monocytes/100 WBC (Bld) 9.0 % Normal . [facility] Comment on above: Performed By: #### E SR, CBC, HEPATIC, CREAT ####[address] Neutrophils (Bld) [#/Vol] 4.8 10*3/uL Normal 1.8-7.7 [facility] Comment on above: Performed By: #### E SR, CBC, HEPATIC, CREAT ####[address] Neutrophils/100 WBC (Bld) 66.2 % Normal . [facility] Comment on above: Performed By: #### E SR, CBC, HEPATIC, CREAT ####[address] NRBC% 0.1 /100{WBC} Normal 0-0.5 [facility] Comment on above: Performed By: #### E SR, CBC, HEPATIC, CREAT ####[address] Platelet mean volume (Bld) [Entitic vol] 8.7 fL Normal 6.3-10.7 [facility] Comment on above: Performed By: #### E SR, CBC, HEPATIC, CREAT ####[address] [address] [facility] Platelets (Bld) [#/Vol] 202 10*3/uL Normal 150-450 [facility] Comment on above: Performed By: #### E SR, CBC, HEPATIC, CREAT ####[place] [id number] [facility] RBC (Bld) [#/Vol] 3.96 10*6/uL Normal 3.60-5.00 [facility] Comment on above: Performed By: #### E SR, CBC, HEPATIC, CREAT ####[place] [id number] [facility] WBC (Bld) [#/Vol] 7.2 10*3/uL Normal 3.8-11.6 [facility] Comment on above: Performed By: #### E SR, CBC, HEPATIC, CREAT ####[place] [id number] [facility] Creatinineon 04-28-2023 Creatinine [Mass/Vol] 0.70 mg/dL Normal 0.60-1.20 [facility] Comment on above: Performed By: #### E SR, CBC, HEPATIC, CREAT ####[place] [id number] [facility] GFR/1.73 sq M.predicted MDRD (S/P/Bld) [Vol rate/Area] mL/min/{1.73_m2} Normal [facility] Comment on above: Result Comment: PERF ORMED BY: [facility] [address] [place] [address] PATHOLOGIST FEED MILLER TAMERA DAO M.D. Performed By: #### E SR, CBC, HEPATIC, CREAT ####[place] [id number] [facility] Creatinine [Mass/volume] in Serum or PlasmaOrdered By: Kyle Calderon on 04-28-2023 Creatinine [Mass/Vol] 0.70 mg/dL 0.60-1.20 [facility] Eosinophils Auto (Bld) [#/Vo l]Ordered By: Kyle Calderon on 04-28-2023 Eosinophils (Bld) [#/Vol] 0.2 10*3/uL 0.0-0.45 [facility] Eosinophils/100 WBC Auto (Bl d)Ordered By: Kyle Calderon on 04-28-2023 Eosinophils/100 WBC (Bld) 3.2 % . [facility] Erythrocyte Sedimentation Ra moon 04-28-2023 ESR (Bld) [Velocity] 24 mm/h Normal 0-29 [facility] Comment on above: Result Comment: PERF ORMED BY: [facility] [address] [place] [address] PATHOLOGIST FEED MILLER TAMERA ADO M.D. Performed By: #### E SR, CBC, HEPATIC, CREAT ####[facility] [id number] [place] [address] [facility] Erythrocyte distribution wid th Auto (RBC) [Ratio]Ordered By: Kyle Calderon on 04-28-2023 Erythrocyte distribution width (RBC) [Ratio] 13.5 % 11.9-15.3 [facility] Erythrocyte sedimentation ra te by Photometric methodOrdered By: Kyle Calderon on 04-28-2023 ESR Photometric method (Bld) [Velocity] 24 mm/hr 0-29 [facility] Globulin Calc (S) [Mass/Vol] Ordered By: Kyle Calderon on 04-28-2023 Globulin (S) [Mass/Vol] 1.9 g/dL [facility] Hematocrit Auto (Bld) [Volum e fraction]Ordered By: Kyle Calderon on 04-28-2023 Hematocrit (Bld) [Volume fraction] 36.5 % 34.0-46.4 [facility] Hemoglobin [Mass/volume] in BloodOrdered By: Kyle Calderon on 04-28-2023 Hemoglobin (Bld) [Mass/Vol] 12.3 g/dL 11.8-15.4 [facility] Hepatic Panelon 04-28-2023 Albumin [Mass/Vol] 4.2 g/dL Normal 3.5-5.7 [facility] Comment on above: Performed By: #### E SR, CBC, HEPATIC, CREAT ####[address] [address] [facility] Albumin/Globulin [Mass ratio] 2.2 {ratio} Normal [facility] Comment on above: Performed By: #### E SR, CBC, HEPATIC, CREAT ####[address] [address] [facility] ALP [Catalytic activity/Vol] 102 U/L Normal 34-104 [facility] Comment on above: Performed By: #### E SR, CBC, HEPATIC, CREAT ####[address] [address] [facility] ALT [Catalytic activity/Vol] 58 U/L High 7-52 [facility] Comment on above: Performed By: #### E SR, CBC, HEPATIC, CREAT ####[address] [address] [facility] AST [Catalytic activity/Vol] 53 U/L High 13-39 [facility] Comment on above: Performed By: #### E SR, CBC, HEPATIC, CREAT ####[address] [address] [facility] Bilirubin [Mass/Vol] 0.8 mg/dL Normal 0.3-1.0 [facility] Comment on above: Performed By: #### E SR, CBC, HEPATIC, CREAT ####[address] [address] [facility] Bilirubin,Indirect 0.7 mg/dL Normal [facility] Comment on above: Performed By: #### E SR, CBC, HEPATIC, CREAT ####[address] [address] [facility] Bilirubin.indirect [Mass/Vol] 0.10 mg/dL Normal 0.03-0.18 [facility] Comment on above: Performed By: #### E SR, CBC, HEPATIC, CREAT ####[address] [address] [facility] Globulin (S) [Mass/Vol] 1.9 g/dL Normal [facility] Comment on above: Performed By: #### E SR, CBC, HEPATIC, CREAT ####[facility] [id number] [place] [id number] [facility] Protein [Mass/Vol] 6.1 g/dL Low 6.4-8.9 [facility] Comment on above: Performed By: #### E SR, CBC, HEPATIC, CREAT ####[facility] [id number] [place] [id number] [facility] Leukocytes [#/volume] correc edd for nucleated erythrocytes in Blood by Automated counOrdered By: Kyle Calderon on 04-28-2023 WBC corrected for nucl RBC Auto (Bld) [#/Vol] 7.2 10*3/uL 3.8-11.6 [facility] Lymphocytes Auto (Bld) [#/Vo l]Ordered By: Kyle Calderon on 04-28-2023 Lymphocytes (Bld) [#/Vol] 1.5 10*3/uL 1.00-4.8 [facility] Lymphocytes/100 WBC Auto (Bl d)Ordered By: Kyle Calderon on 04-28-2023 Lymphocytes/100 WBC (Bld) 20.3 % . [facility] MCH Auto (RBC) [Entitic mass ]Ordered By: Kyle Calderon on 04-28-2023 MCH (RBC) [Entitic mass] 31.2 pg 24.7-34.3 [facility] MCHC Auto (RBC) [Mass/Vol]Or dered By: Kyle Calderon on 04-28-2023 MCHC (RBC) [Mass/Vol] 33.8 g/dL 32.0-35.0 [facility] MCV Auto (RBC) [Entitic vol] Ordered By: Kyle Calderon on 04-28-2023 MCV (RBC) [Entitic vol] 92.2 fL 80-100 [facility] Monocytes Auto (Bld) [#/Vol] Ordered By: Kyle Calderon on 04-28-2023 Monocytes (Bld) [#/Vol] 0.6 10*3/uL 0.0-0.8 [facility] Monocytes/100 WBC Auto (Bld) Ordered By: Kyle Calderon on 04-28-2023 Monocytes/100 WBC (Bld) 9.0 % . [facility] Neutrophils Auto (Bld) [#/Vo l]Ordered By: Kyle Calderon on 04-28-2023 Neutrophils (Bld) [#/Vol] 4.8 10*3/uL 1.8-7.7 [facility] Neutrophils/100 WBC Auto (Bl d)Ordered By: Kyle Calderon on 04-28-2023 Neutrophils/100 WBC (Bld) 66.2 % . [facility] No Panel InformationOrdered By: Kyle Calderon on 04-28-2023 Estimated GFR (CKD-EPI) > 60.0 mL/Min [facility] Creatinine Clearance (Chem N/A [facility] Nucleated erythrocytes [Pres ence] in Blood by Automated countOrdered By: Kyle Calderon on 04-28-2023 Nucleated RBC Auto Ql (Bld) 0.1 /100{WBC} 0-0.5 [facility] Platelet mean volume Auto (B ld) [Entitic vol]Ordered By: Kyle Calderon on 04-28-2023 Platelet mean volume (Bld) [Entitic vol] 8.7 fL 6.3-10.7 [facility] Platelets Auto (Bld) [#/Vol] Ordered By: Kyle Calderon on 04-28-2023 Platelets (Bld) [#/Vol] 202 10*3/uL 150-450 [facility] Protein [Mass/volume] in Ser um or PlasmaOrdered By: Kyle Calderon on 04-28-2023 Protein [Mass/Vol] 6.1 g/dL 6.4-8.9 [facility] RBC Auto (Bld) [#/Vol]Ordere d By: Kyle Calderon on 04-28-2023 RBC (Bld) [#/Vol] 3.96 10*6/uL 3.60-5.00 [facility] Serum or plasma albumin/glob ulin mass ratioOrdered By: Kyle Calderon on 04-28-2023 Albumin/Globulin [Mass ratio] 2.2 {ratio} [facility] Serum or plasma non-glucuron idated bilirubin measurement (mass/volume)Ordered By: Kyle Calderon on 04-28-2023 Bilirubin.indirect [Mass/Vol] 0.7 mg/dL [facility] WBC Auto (Bld) [#/Vol]Ordere d By: Kyle Calderon on 04-28-2023 WBC (Bld) [#/Vol] 7.2 10*3/uL 3.8-11.6 [facility] Consent for Treatmenton 02-15 Consent for Treatment [id number] .[id number]:127 Normal [facility] Discharge Instructionson Discharge Instructions [id number] .[id number]:127 Normal [facility] ED Clinical Summaryon 2022 ED Clinical Summary [place] [id number] ED Clinical Summary Person Information Name: FELICITY PHILLIPS Breann/[facility] Age: 57 Years : 1965 Sex: Female Language: Turkish PCP: Jose Antonio Garza MD Marital Status: Visit Id: Visit Reason: Cellulitis; Foot pain-swelling; FOOT SWELLING Speciality: Acuity: 4 Enc Type: Emergency Med Service: Emergency Arrival: 02/24/2023 11:52:40 Discharge: 02/24/2023 13:18:00 LOS: 000 01:26 Checkin: 02/24/2023 11:52:40 Checkout: 02/24/2023 13:18:00 Dispo Type: Home (Routine DC) EVENTS: Event Name Event Status Request Date/Time Start Date/Time Complete Date/Time Arrive Complete 02/24/2023 11:52:40 02/24/2023 11:52:40 02/24/2023 11:52:40 Document Home Meds Request 02/24/2023 11:52:40 Triage Complete 02/24/2023 11:52:40 02/24/2023 12:00:04 02/24/2023 12:00:04 Bed Assign Complete 02/24/2023 11:56:12 02/24/2023 11:56:12 02/24/2023 11:56:12 Dr Exam Complete 02/24/2023 11:56:12 02/24/2023 12:10:56 02/24/2023 12:10:56 RN Exam Complete 02/24/2023 11:56:12 02/24/2023 12:04:43 02/24/2023 12:04:43 Registration Complete 02/24/2023 12:10:56 02/24/2023 12:11:01 02/24/2023 12:11:01 Reg Complete Request 02/24/2023 12:11:01 Reg Bed Request Complete 02/24/2023 12:11:02 02/24/2023 12:11:02 02/24/2023 12:11:02 Dr Exam Complete 02/24/2023 12:18:48 02/24/2023 12:18:48 02/24/2023 12:18:48 Registration Request 02/24/2023 12:18:48 Patient Care Complete 02/24/2023 13:02:32 02/24/2023 13:17:24 Discharge Complete 02/24/2023 13:03:43 02/24/2023 13:18:12 02/24/2023 13:18:12 Transfer Complete 02/24/2023 13:18:12 02/24/2023 13:18:12 02/24/2023 13:18:12 ADDRESS: [address] [place] [phone] PHYS DOC NOTES: MEDICAL INFORMATION: Prescriptions Given: New Medications [facility], [address] [place], [place] [id number], [phone] cephalexin (Keflex 500 mg Cap) 1 Capsules By Mouth 3 times a day. Take one capsule by mouth three times a day for ten days. Refills: 0. doxycycline (doxycycline monohydrate 100 mg oral tablet) 1 Tablets By Mouth 2 times a day for 10 Days. Refills: 0. Medications to Continue with No Changes Other Medications carvedilol (carvedilol 12.5 mg Tab) 1 Tablets By Mouth 2 times a day. furosemide (Lasix 40 mg Tab) 1 Tablets By Mouth every day. hydroxychloroquine (Plaquenil) 200 Milligram By Mouth 2 times a day. leflunomide (leflunomide 20 mg Tab) rituximab (Rituxan) sacubitril-valsartan (Entresto 49 mg-51 mg oral tablet) 1 Tablets By Mouth 2 times a day. spironolactone (spironolactone 25 mg Tab) 1 Tablets By Mouth every day. PATIENT EDUCATION INFORMATION: Instructions: Skin Abscess; Cellulitis, Adult Follow up: With: Address: When: Jose Antonio Garza [address] [place] [address], [address] [place] [id number] Business (1) In 3 days 02/27/2023 DIAGNOSIS: Abscess; Cellulitis Normal [facility] ED Note-Physicianon 02-25-20 ED Note-Physician Basic Information Time Seen: Rodrick Mobley PA-C 02/24/2023 12:10 Chief Complaint pt reports redness to right top of foot. Has been present for 3wks, not going away. Pt reports poss spider bite. painful History of Present Illness 57-year-old female comes to the ED for evaluation of right foot pain. For the last 3 weeks she has had pain swelling to the right foot. She now does develop drainage. No known trauma to the area. No fever, chills, nausea or vomiting. No prior treatments. No other complaints or concerns. Review of Systems A 10 point review of systems is negative except as noted above. Medical and Surgical History: Reviewed and noted Social history: Lives at home Tobacco: Denies Physical Exam Vitals & Measurements T: 36.7 ?C(Oral) HR: 89(Peripheral) RR: 16 BP: 200/100 SpO2: 98% HT: 155 cm WT: 108.2 kg BMI: 45.04 Nurses notes and vital signs reviewed and patient is not hypoxic. General: The patient appears well, resting comfortably. Skin: Warm, dry. Localized swelling and erythema to the dorsal aspect of the right foot. Approximately 4 cm of involvement. Centrally there is a small opening with serosanguineous and purulent drainage. No fluctuance. No lymphangitis. Head: Atraumatic. Neck: No JVD. Eye: Normal conjunctiva. Ears, Nose, Mouth, and Throat: Moist mucous membranes. Cardiovascular: Strong distal pulses. Chest wall: Respiratory: Respirations are nonlabored. Back: Normal range of motion. Musculoskeletal: Normal ROM with no gross deformity. Gastrointestinal: Urological: Neurological: Awake and alert. No focal deficits. Follows commands. Psychiatric: Cooperative. Medical Decision Making Patient is an area of cellulitis to dorsal aspect of the right foot with a small opening and purulent drainage. There is no fluctuant area for further incision and drainage at this time. She educated warm compresses to continue with drainage. She is on oral antibiotics. She does have pain with weightbearing and walking, and is given a postop shoe to help with that. She remains neurovascular intact. Discharged to follow-up with PCP. Patient was encouraged to return to the ED if symptoms worsen or change. Assessment/Plan Abscess (L02.91: Cutaneous abscess, unspecified) Cellulitis (L03.90: Cellulitis, unspecified) Orders: cephalexin, 500 mg = 1 cap(s), Oral, TID, Take one capsule by mouth three times a day for ten days, # 30 cap(s), Refills(s) 0, Pharmacy: [facility] 1985, 155, cm, 02/24/23 12:00:00 EDT, Height/Length Dosing, 108.2, kg, 02/24/23 12:00:00 EDT, Weight Dosing doxycycline, 100 mg = 1 tab(s), Oral, BID, X 10 day(s), # 20 tab(s), Refills(s) 0, Pharmacy: [facility], 155, cm, 02/24/23 12:00:00 EDT, Height/Length Dosing, 108.2, kg, 02/24/23 12:00:00 EDT, Weight Dosing Post-op Shoe Disposition Plan Patient Discharge Condition Disposition: Discharged home Condition: Improved and stable Counseled: Patient and/or family were counseled to workup, results, treatment plan and follow-up recommendations Discharge Prescription List Prescriptions doxycycline monohydrate 100 mg oral tablet, 100 mg= 1 tab(s), Oral, BID Keflex 500 mg Cap, 500 mg= 1 cap(s), Oral, TID Follow-up With When Contact Information Jose Antonio Garza In 3 days 02/27/2023 EDT [address] [place] [address]- Business (1) Additional Instructions: Patient Education Skin Abscess Cellulitis, Adult Attestation Patient seen and evaluated by the physician team assistant. Attending physician was present in the emergency department and supervised care. This visit was performed by both the physician and an APC. I performed all aspects of the MDM as documented. This report was transcribed using voice recognition software. Every effort was made to ensure accuracy, however, inadvertently computerized spring bender mistakes may be present. Appropriate healthcare PPE was used in evaluating this patient. The patient was placed in a mask. The healthcare provider was wearing mask, gloves, and utilizing proper hand hygiene. All equipment was properly cleansed. Problem List/Past Medical History Ongoing Axillary abscess BMI 40.0-44.9, adult Cardiomyopathy Chronic combined systolic and diastolic heart failure Eczema Furuncle of right axilla HTN (hypertension) Immunodeficiency Left ventricular systolic dysfunction Lumbar radiculopathy lymph node removal Morbid obesity Nonischemic cardiomyopathy Rheumatoid arthritis Historical HTN RA Procedure/Surgical History Lumpectomy w/ Lymph node removal left arm (2007), Appendectomy, Cholecystectomy, [facility] BSO - Total abdominal hysterectomy and bilateral salpingo-oophorectomy . Medications Inpatient No active inpatient medications Home carvedilol 12.5 mg Tab, 12.5 mg= 1 tab(s), Oral, BID doxycycline monohydrate 100 mg oral tablet, 100 mg= 1 tab(s), Oral, BID Entresto 49 mg-51 mg oral tablet, 1 tab(s), Oral, BID Keflex 5 (more content not included)... Normal [facility] Comment on above: Result Comment: Elec tronically Signed By: Rodrick Mobley PA-C\.br\Date and Time Signed: 02/24/23 13:15 EDT\.br\Electronically Co-Signed By: Briana Winters M.D.\.br\Date and Time Co-Signed: 02/24/23 13:24 EDT ED Patient Education Noteon 02-24-2023 ED Patient Education Note Infectious Disease Skin Abscess A skin abscess is an infected area on or under your skin that contains a collection of pus and other material. An abscess may also be called a furuncle, carbuncle, or boil. An abscess can occur in or on almost any part of your body. Some abscesses break open (rupture) on their own. Most continue to get worse unless they are treated. The infection can spread deeper into the body and eventually into your blood, which can make you feel ill. Treatment usually involves draining the abscess. What are the causes? An abscess occurs when germs, like bacteria, pass through your skin and cause an infection. This may be caused by: ? A scrape or cut on your skin. ? A puncture wound through your skin, including a needle injection or insect bite. ? Blocked oil or sweat glands. ? Blocked and infected hair follicles. ? A cyst that forms beneath your skin (sebaceous cyst) and becomes infected. What increases the risk? This condition is more likely to develop in people who: ? Have a weak body defense system (immune system). ? Have diabetes. ? Have dry and irritated skin. ? Get frequent injections or use illegal IV drugs. ? Have a foreign body in a wound, such as a splinter. ? Have problems with their lymph system or veins. What are the signs or symptoms? Symptoms of this condition include: ? A painful, firm bump under the skin. ? A bump with pus at the top. This may break through the skin and drain. Other symptoms include: ? Redness surrounding the abscess site. ? Warmth. ? Swelling of the lymph nodes (glands) near the abscess. ? Tenderness. ? A sore on the skin. How is this diagnosed? This condition may be diagnosed based on: ? A physical exam. ? Your medical history. ? A sample of pus. This may be used to find out what is causing the infection. ? Blood tests. ? Imaging tests, such as an ultrasound, CT scan, or MRI. How is this treated? A small abscess that drains on its own may not need treatment. Treatment for larger abscesses may include: ? Moist heat or heat pack applied to the area several times a day. ? A procedure to drain the abscess (incision and drainage). ? Antibiotic medicines. For a severe abscess, you may first get antibiotics through an IV and then change to antibiotics by mouth. Follow these instructions at home: Medicines ? Take sbgb-uci-pzuptam and prescription medicines only as told by your health care provider. ? If you were prescribed an antibiotic medicine, take it as told by your health care provider. Do not stop taking the antibiotic even if you start to feel better. Abscess care ? If you have an abscess that has not drained, apply heat to the affected area. Use the heat source that your health care provider recommends, such as a moist heat pack or a heating pad. ? Place a towel between your skin and the heat source. ? Leave the heat on for 20?30 minutes. ? Remove the heat if your skin turns bright red. This is especially important if you are unable to feel pain, heat, or cold. You may have a greater risk of getting burned. ? Follow instructions from your health care provider about how to take care of your abscess. Make sure you: ? Cover the abscess with a bandage (dressing). ? Change your dressing or gauze as told by your health care provider. ? Wash your hands with soap and water before you change the dressing or gauze. If soap and water are not available, use hand project coach. ? Check your abscess every day for signs of a worsening infection. Check for: ? More redness, swelling, or pain. ? More fluid or blood. ? Warmth. ? More pus or a bad smell. General instructions ? To avoid spreading the infection: ? Do not share personal care items, towels, or hot tubs with others. ? Avoid making skin contact with other people. ? Keep all follow-up visits as told by your health care provider. This is important. Contact a health care provider if you have: ? More redness, swelling, or pain around your abscess. ? More fluid or blood coming from your abscess. ? Warm skin around your abscess. ? More pus or a bad smell coming from your abscess. ? Muscle aches. ? Chills or a general ill feeling. Get help right away if you: ? Have severe pain. ? See red streaks on your skin spreading away from the abscess. ? See redness that spreads quickly. ? Have a fever or chills. Summary ? A skin abscess is an infected area on or under your skin that contains a collection of pus and other material. ? A small abscess that drains on its own may not need treatment. ? Treatment for larger abscesses may include having a procedure to drain the abscess and taking an antibiotic. This information is not intended to replace advice given to you by your health care provider. Make sure you discuss any questions you have with your health care pro (more content not included)... Normal [facility] ED Patient Summaryon 023 ED Patient Summary [address] [address] Patient Discharge Instructions Person Information Name: FELICITY PHILLIPS Age: 57 Years Arrival Date: 02/24/2023 11:52:40 Discharge Diagnosis: Abscess; Cellulitis Primary Care Physician: Jose Antonio Garza MD Provider Information Primary Provider: Briana Winters M.D. Advanced Tube Dispatcher:Rodrick Mobley PA-C The exam and treatment you received in the Emergency Department were for an urgent problem and are not intended as complete care. It is important that you follow up with a doctor, nurse practitioner, or physician?s team assistant for ongoing care. If your symptoms become worse or you do not improve as expected and you are unable to reach your usual health care provider, you should return to the Emergency Department. We are available 24 hours a day. FELICITY PHILLIPS has been given the following list of patient education materials, prescriptions and follow-up instructions: Follow-up Instructions: With: Address: When: Jose Antonio Kayla [address] [place] [address], [facility] [place] [address] Business (1) In 3 days 02/27/2023 In the event that this physician does not participate in your insurance network, please consult with your insurance company to find a nearby participating provider. Patient Education Materials: Skin Abscess; Cellulitis, Adult A MESSAGE TO ALL PATIENTS REGARDING OPIOIDS PRESCRIPTION OPIOIDS: WHAT YOU NEED TO KNOW Prescription opioids can be used to help relieve qntwzgmu-va-gracoa pain and are often prescribed following a surgery or injury, or for certain health conditions. These medications can be an important part of the treatment but also come with serious risks. It is important to work with your healthcare provider to make sure you are getting the safest, most effective care. WHAT ARE THE RISKS AND SIDE EFFECTS OF OPIOID USE? Prescription opioids carry serious risks of addiction and overdose, especially with prolonged use. An opioid overdose, often marked by slowed breathing, can cause sudden . The use of prescription opioids can have a number of side effects as well, even when taken as directed: ? Tolerance?meaning you might need to take more of the medication for the same pain relief ? Physical dependence?meaning you have symptoms of withdrawal when a medication is stopped ? Increased sensitivity to pain ? Constipation ? Nausea, vomiting, and dry mouth ? Sleepiness and dizziness ? Confusion ? Depression ? Low levels of testosterone that can result in lower sex drive, energy, and strength ? Itching and sweating RISKS ARE GREATER WITH: ? History of drug misuse, substance use disorder, or overdose ? Mental health conditions (such as depression or anxiety) ? Sleep apnea ? Older age (65 years and older) ? Avoid alcohol while taking prescription opioids. Also, unless specifically advised by your health care provider, medications to avoid include: ? Benzodiazepines (such as Xanax or Valium) ? Muscle relaxants (such as Soma or Flexeril) ? Hypnotics (such as Ambien or Lunesta) ? Other prescription opioids KNOW YOUR OPTIONS Talk to your health care provider about ways to manage your pain that don?t involve prescription opioids. Some of these options may actually work better and have fewer risks and side effects. Options may include: ? Pain relievers such as acetaminophen, ibuprofen, and naproxen ? Some medication that are also used for depression or seizures ? Physical therapy and exercise ? Cognitive behavioral therapy, a psychological, goal-directed approach, in which patients learn how to modify physical, behavioral, and emotional triggers of pain and stress. IF YOU ARE PRESCRIBED OPIOIDS FOR PAIN: ? Never take opioids in greater amounts or more often than prescribed. ? Follow up with your primary health care provider. o Work together to create a plan on how to manage your pain. o Talk about ways to help manage your pain that don?t involve prescription opioids. o Talk about any and all concerns and side effects. ? Help prevent misuse and abuse o Never sell or share prescription opioids. o Never use another person?s prescription opioids. ? Store prescription opioids in a secure place and out of reach of others (this may include visitors, children, friends, and family). ? Safely dispose of unused prescription opioids: Find your community drug take-back program or your pharmacy mail-back program, or flush them down the toilet, following guidance from the Food and Drug Administration (www.fda.gov/Drugs/Re sourcesForYou). ? Visit www.cdc.gov/drugoverd ose to learn about the risks of opioids abuse and overdose. ? If you believe you may be struggling with addiction, tell your health intensive care unit nurse and ask for guidance or call [facility]?S National Helpline at 3-748-053-AAAV. (more content not included)... Normal [facility] Alanine aminotransferase [En zymatic activity/volume] in Serum or PlasmaOrdered By: Kyle Calderon on 01-05-2023 ALT [Catalytic activity/Vol] 41 U/L 7-52 [facility] Albumin [Mass/volume] in Ser um or Plasma by Bromocresol green (BCG) dye binding methoOrdered By: Kyle Calderon on 01-05-2023 Albumin BCG dye [Mass/Vol] 4.4 g/dL 3.5-5.7 [facility] Alkaline phosphatase [Enzyma tic activity/volume] in Serum or PlasmaOrdered By: Kyle Calderon on 01-05-2023 ALP [Catalytic activity/Vol] 93 U/L 34-104 [facility] Anisocytosis LM Ql (Bld)Orde red By: Kyle Calderon on 01-05-2023 Anisocytosis Ql (Bld) Slight [facility] Aspartate aminotransferase [ Enzymatic activity/volume] in Serum or PlasmaOrdered By: Kyle Calderon on 01-05-2023 AST [Catalytic activity/Vol] 19 U/L 13-39 [facility] Band form neutrophils/100 WB C Manual cnt (Bld)Ordered By: Kyle Calderon on 01-05-2023 Band form neutrophils/100 WBC (Bld) 1 % 0-5 [facility] Basophils Auto (Bld) [#/Vol] Ordered By: Kyle Calderon on 01-05-2023 Basophils (Bld) [#/Vol] N/A [facility] Basophils/100 WBC Auto (Bld) Ordered By: Kyle Calderon on 01-05-2023 Basophils/100 WBC (Bld) N/A [facility] Basophils/100 WBC Manual cnt (Bld)Ordered By: Kyle Calderon on 01-05-2023 Basophils/100 WBC (Bld) 0 % 0-2 [facility] Bilirubin.direct [Mass/volum e] in Serum or PlasmaOrdered By: Kyle Calderon on 01-05-2023 Bilirubin.direct [Mass/Vol] 0.10 mg/dL 0.03-0.18 [facility] Bilirubin.total [Mass/volume ] in Serum or PlasmaOrdered By: Kyle Calderon on 01-05-2023 Bilirubin [Mass/Vol] 0.6 mg/dL 0.3-1.0 [facility] Creatinineon 01-05-2023 Creatinine [Mass/Vol] 0.85 mg/dL Normal 0.60-1.20 [facility] Comment on above: Performed By: #### H EPATIC, DIFF CBC, ESR, CREAT #### [facility] [address] [place] [address] [place] GFR/1.73 sq M.predicted MDRD (S/P/Bld) [Vol rate/Area] mL/min/{1.73_m2} Normal [facility] Comment on above: Result Comment: PERF ORMED BY: [place] [address] PATHOLOGIST FEED MILLER TAMERA DAO M.D. Performed By: #### H EPATIC, DIFF CBC, ESR, CREAT #### [facility] [address] Creatinine [Mass/volume] in Serum or PlasmaOrdered By: Kyle Calderon on 01-05-2023 Creatinine [Mass/Vol] 0.85 mg/dL 0.60-1.20 [facility] Diff and CBCon 01-05-2023 Anisocytosis Ql (Bld) Slight Normal [facility] Comment on above: Performed By: #### H EPATIC, DIFF CBC, ESR, CREAT #### [facility] [address] [place] [id number] [place] Band form neutrophils/100 WBC (Bld) 1 % Normal 0-5 [facility] Comment on above: Performed By: #### H EPATIC, DIFF CBC, ESR, CREAT #### [facility] [address] [place] [id number] [place] Basophils/100 WBC (Bld) 0 % Normal 0-2 [facility] Comment on above: Performed By: #### H EPATIC, DIFF CBC, ESR, CREAT #### [address] Eosinophils/100 WBC (Bld) 4 % High 1-3 [facility] Comment on above: Performed By: #### H EPATIC, DIFF CBC, ESR, CREAT #### [address] Erythrocyte distribution width (RBC) [Ratio] 15.0 % Normal 11.9-15.3 [facility] Comment on above: Performed By: #### H EPATIC, DIFF CBC, ESR, CREAT #### [address] Hematocrit (Bld) [Volume fraction] 35.4 % Normal 34.0-46.4 [facility] Comment on above: Performed By: #### H EPATIC, DIFF CBC, ESR, CREAT #### [address] Hemoglobin (Bld) [Mass/Vol] 12.1 g/dL Normal 11.8-15.4 [facility] Comment on above: Performed By: #### H EPATIC, DIFF CBC, ESR, CREAT #### [address] Lymphocytes/100 WBC (Bld) 13 % Low 18-42 [facility] Comment on above: Performed By: #### H EPATIC, DIFF CBC, ESR, CREAT #### [address] MCH (RBC) [Entitic mass] 31.7 pg Normal 24.7-34.3 [facility] Comment on above: Performed By: #### H EPATIC, DIFF CBC, ESR, CREAT #### [address] MCV (RBC) [Entitic vol] 92.6 fL Normal 80-100 [facility] Comment on above: Performed By: #### H EPATIC, DIFF CBC, ESR, CREAT #### [address] Mean Corpuscular HGB Conc 34.2 g/dL Normal 32.0-35.0 [facility] Comment on above: Performed By: #### H EPATIC, DIFF CBC, ESR, CREAT #### [address] Metamyelocytes 1 % High 0-0 [facility] Comment on above: Performed By: #### H EPATIC, DIFF CBC, ESR, CREAT #### [address] Microcytosis Slight Normal [facility] Comment on above: Performed By: #### H EPATIC, DIFF CBC, ESR, CREAT #### [address] Monocytes/100 WBC (Bld) 6 % Normal 2-11 [facility] Comment on above: Performed By: #### H EPATIC, DIFF CBC, ESR, CREAT #### [address] Myelocytes 1 % High 0-0 [facility] Comment on above: Performed By: #### H EPATIC, DIFF CBC, ESR, CREAT #### [address] Platelet Estimate Normal Normal Normal [facility] Comment on above: Performed By: #### H EPATIC, DIFF CBC, ESR, CREAT #### [address] Platelet mean volume (Bld) [Entitic vol] 8.3 fL Normal 6.3-10.7 [facility] Comment on above: Performed By: #### H EPATIC, DIFF CBC, ESR, CREAT #### [address] Platelet Morphology Normal Normal Normal [facility] Comment on above: Performed By: #### H EPATIC, DIFF CBC, ESR, CREAT #### [address] Platelets (Bld) [#/Vol] 204 10*3/uL Normal 150-450 [facility] Comment on above: Performed By: #### H EPATIC, DIFF CBC, ESR, CREAT #### [facility] [address] Polychromasia Slight Normal [facility] Comment on above: Performed By: #### H EPATIC, DIFF CBC, ESR, CREAT #### [facility] [address] RBC (Bld) [#/Vol] 3.82 10*6/uL Normal 3.60-5.00 [facility] Comment on above: Performed By: #### H EPATIC, DIFF CBC, ESR, CREAT #### [facility] [address] Segmented neutrophils/100 WBC (Bld) 74 % High 50-70 [facility] Comment on above: Performed By: #### H EPATIC, DIFF CBC, ESR, CREAT #### [facility] [address] [place] [address] WBC (Bld) [#/Vol] 10.8 10*3/uL Normal 3.8-11.6 [facility] Comment on above: Performed By: #### H EPATIC, DIFF CBC, ESR, CREAT #### [address] Eosinophils Auto (Bld) [#/Vo l]Ordered By: Kyle Calderon on 01-05-2023 Eosinophils (Bld) [#/Vol] N/A [facility] Eosinophils/100 WBC Auto (Bl d)Ordered By: Kyle Calderon on 01-05-2023 Eosinophils/100 WBC (Bld) N/A [facility] Eosinophils/100 WBC Manual c nt (Bld)Ordered By: Kyle Calderon on 01-05-2023 Eosinophils/100 WBC (Bld) 4 % 1-3 [facility] Erythrocyte Sedimentation Ra moon 01-05-2023 ESR (Bld) [Velocity] 17 mm/h Normal 0-29 [facility] Comment on above: Result Comment: PERF ORMED BY: [place] [address] PATHOLOGIST FEED MILLER TAMERA DAO M.D. Performed By: #### H EPATIC, DIFF CBC, ESR, CREAT ####[facility] [id number] Erythrocyte distribution wid th Auto (RBC) [Ratio]Ordered By: Kyle Calderon on 01-05-2023 Erythrocyte distribution width (RBC) [Ratio] 15.0 % 11.9-15.3 [facility] Erythrocyte sedimentation ra te by Photometric methodOrdered By: Kyle Calderon on 01-05-2023 ESR Photometric method (Bld) [Velocity] 17 mm/hr 0-29 [facility] Globulin Calc (S) [Mass/Vol] Ordered By: Kyle Calderon on 01-05-2023 Globulin (S) [Mass/Vol] 2.2 g/dL [facility] Hematocrit Auto (Bld) [Volum e fraction]Ordered By: Kyle Calderon on 01-05-2023 Hematocrit (Bld) [Volume fraction] 35.4 % 34.0-46.4 [facility] Hemoglobin [Mass/volume] in BloodOrdered By: Kyle Calderon on 01-05-2023 Hemoglobin (Bld) [Mass/Vol] 12.1 g/dL 11.8-15.4 [facility] Hepatic Panelon 01-05-2023 Albumin [Mass/Vol] 4.4 g/dL Normal 3.5-5.7 [facility] Comment on above: Performed By: #### H EPATIC, DIFF CBC, ESR, CREAT #### [facility] [address] Albumin/Globulin [Mass ratio] 2.0 {ratio} Normal [facility] Comment on above: Performed By: #### H EPATIC, DIFF CBC, ESR, CREAT #### [facility] [address] ALP [Catalytic activity/Vol] 93 U/L Normal 34-104 [facility] Comment on above: Performed By: #### H EPATIC, DIFF CBC, ESR, CREAT #### [facility] [address] ALT [Catalytic activity/Vol] 41 U/L Normal 7-52 [facility] Comment on above: Performed By: #### H EPATIC, DIFF CBC, ESR, CREAT #### [facility] [address] [place] [address] AST [Catalytic activity/Vol] 19 U/L Normal 13-39 [facility] Comment on above: Performed By: #### H EPATIC, DIFF CBC, ESR, CREAT #### [address] Bilirubin [Mass/Vol] 0.6 mg/dL Normal 0.3-1.0 [facility] Comment on above: Performed By: #### H EPATIC, DIFF CBC, ESR, CREAT #### [address] Bilirubin,Indirect 0.5 mg/dL Normal [facility] Comment on above: Performed By: #### H EPATIC, DIFF CBC, ESR, CREAT #### [address] Bilirubin.indirect [Mass/Vol] 0.10 mg/dL Normal 0.03-0.18 [facility] Comment on above: Performed By: #### H EPATIC, DIFF CBC, ESR, CREAT #### [address] Globulin (S) [Mass/Vol] 2.2 g/dL Normal [facility] Comment on above: Performed By: #### H EPATIC, DIFF CBC, ESR, CREAT #### [address] Protein [Mass/Vol] 6.6 g/dL Normal 6.4-8.9 [facility] Comment on above: Performed By: #### H EPATIC, DIFF CBC, ESR, CREAT #### [address] Leukocytes [#/volume] correc edd for nucleated erythrocytes in Blood by Automated counOrdered By: Kyle Calderon on 01-05-2023 WBC corrected for nucl RBC Auto (Bld) [#/Vol] 10.8 10*3/uL 3.8-11.6 [facility] Lymphocytes Auto (Bld) [#/Vo l]Ordered By: Kyle Calderon on 01-05-2023 Lymphocytes (Bld) [#/Vol] N/A [facility] Lymphocytes/100 WBC Auto (Bl d)Ordered By: Kyle Calderon on 01-05-2023 Lymphocytes/100 WBC (Bld) N/A [facility] Lymphocytes/100 WBC Manual c nt (Bld)Ordered By: Kyle Calderon on 01-05-2023 Lymphocytes/100 WBC (Bld) 13 % 18-42 [facility] MCH Auto (RBC) [Entitic mass ]Ordered By: Kyle Calderon on 01-05-2023 MCH (RBC) [Entitic mass] 31.7 pg 24.7-34.3 [facility] MCHC Auto (RBC) [Mass/Vol]Or dered By: Kyle Calderon on 01-05-2023 MCHC (RBC) [Mass/Vol] 34.2 g/dL 32.0-35.0 [facility] MCV Auto (RBC) [Entitic vol] Ordered By: Kyle Calderon on 01-05-2023 MCV (RBC) [Entitic vol] 92.6 fL 80-100 [facility] Metamyelocytes/100 WBC Manua l cnt (Bld)Ordered By: Kyle Calderon on 01-05-2023 Metamyelocytes/100 WBC (Bld) 1 % 0-0 [facility] Microcytes LM Ql (Bld)Ordere d By: Kyle Calderon on 01-05-2023 Microcytes Ql (Bld) Slight [facility] Monocytes Auto (Bld) [#/Vol] Ordered By: Kyle Calderon on 01-05-2023 Monocytes (Bld) [#/Vol] N/A [facility] Monocytes/100 WBC Auto (Bld) Ordered By: Kyle Calderon on 01-05-2023 Monocytes/100 WBC (Bld) N/A [facility] Monocytes/100 WBC Manual cnt (Bld)Ordered By: Kyle Calderon on 01-05-2023 Monocytes/100 WBC (Bld) 6 % 2-11 [facility] Myelocytes/100 WBC Manual cn t (Bld)Ordered By: Kyle Calderon on 01-05-2023 Myelocytes/100 WBC (Bld) 1 % 0-0 [facility] Neutrophils Auto (Bld) [#/Vo l]Ordered By: Kyle Calderon on 01-05-2023 Neutrophils (Bld) [#/Vol] N/A [facility] Neutrophils/100 WBC Auto (Bl d)Ordered By: Kyle Calderon on 01-05-2023 Neutrophils/100 WBC (Bld) N/A [facility] No Panel InformationOrdered By: Kyle Calderon on 01-05-2023 Estimated GFR (CKD-EPI) > 60.0 mL/Min [facility] Creatinine Clearance (Chem N/A [facility] Nucleated erythrocytes [Pres ence] in Blood by Automated countOrdered By: Kyle Calderon on 01-05-2023 Nucleated RBC Auto Ql (Bld) N/A [facility] Platelet adequacy [Presence] in Blood by Light microscopyOrdered By: Kyle Calderon on 01-05-2023 Platelets LM Ql (Bld) Normal Normal [facility] Platelet mean volume Auto (B ld) [Entitic vol]Ordered By: Kyle Calderon on 01-05-2023 Platelet mean volume (Bld) [Entitic vol] 8.3 fL 6.3-10.7 [facility] Platelet morphology finding [Identifier] in BloodOrdered By: Kyle Calderon on 01-05-2023 Platelet morphology finding Nom (Bld) Normal Normal [facility] Platelets Auto (Bld) [#/Vol] Ordered By: Kyle Calderon on 01-05-2023 Platelets (Bld) [#/Vol] 204 10*3/uL 150-450 [facility] Polychromasia [Presence] in Blood by Light microscopyOrdered By: Kyle Calderon on 01-05-2023 Polychromasia LM Ql (Bld) Slight [facility] Protein [Mass/volume] in Ser um or PlasmaOrdered By: Kyle Calderon on 01-05-2023 Protein [Mass/Vol] 6.6 g/dL 6.4-8.9 [facility] RBC Auto (Bld) [#/Vol]Ordere d By: Kyle Calderon on 01-05-2023 RBC (Bld) [#/Vol] 3.82 10*6/uL 3.60-5.00 [facility] RBC morphologyOrdered By: Jazmin Calderon on 01-05-2023 RBC morphology finding Nom (Bld) N/A [facility] Segmented neutrophils/100 WB C Manual cnt (Bld)Ordered By: Kyle Calderon on 01-05-2023 Segmented neutrophils/100 WBC (Bld) 74 % 50-70 [facility] Serum or plasma albumin/glob ulin mass ratioOrdered By: Kyle Calderon on 01-05-2023 Albumin/Globulin [Mass ratio] 2.0 {ratio} [facility] Serum or plasma non-glucuron idated bilirubin measurement (mass/volume)Ordered By: Kyle Calderon on 01-05-2023 Bilirubin.indirect [Mass/Vol] 0.5 mg/dL [facility] WBC Auto (Bld) [#/Vol]Ordere d By: Kyle Calderon on 01-05-2023 WBC (Bld) [#/Vol] 10.8 10*3/uL 3.8-11.6 [facility] CT LSPINE WO CONon 3 CT LSPINE WO CON EXAMINATION: CT LSPINE WO CON HISTORY: Lumbar radiculopathy COMPARISON: No relevant comparison available. TECHNIQUE: Axial, Coronal, and Sagittal CT images were created without I.V. contrast material. Dose reduction techniques were achieved by using automated exposure control and/or adjustment of mA and/or kV according to patient size and/or use of iterative reconstruction technique. FINDINGS: PARASPINAL AREA: Normal with no visible mass. BONES: 3 mm anterolisthesis of L4 in relation L5. Mild to moderate degenerative spondylosis and facet osteoarthropathy most significant at L3-L5 DISC LEVELS: 12-L1: No significant disc/facet abnormality, spinal stenosis, or foraminal stenosis. L1-L2: No significant disc/facet abnormality, spinal stenosis, or foraminal stenosis. L2-L3: Posterior disc/osteophyte complex extending up to 2.6 mm. No central or foraminal stenosis L3-L4: Posterior disc/osteophyte complex extending posteriorly up to 3 mm. No central or foraminal stenosis L4-L5: Moderate disc space narrowing with desiccation. Disc herniation of the protrusion type extending up to 5.7 mm best seen on sagittal image #15. 3 mm anterolisthesis of L4 in relation to L5. Mild central canal stenosis. Bilateral facet osteoarthropathy, moderate L5-S1: Posterior central disc bulge extending up to 2.4 mm IMPRESSION: Degenerative changes most significant at L4-L5 where a posterior broad-based disc herniation and spondylolisthesis result in bilateral foraminal stenosis. Nonemergent MRI could be performed for additional characterization Electronically authenticated by: UNA ELMORE Date: 2022-11-13 09:34 Normal [facility] CT PELVIS WO CONon 3 CT PELVIS WO CON EXAMINATION: CT PELVIS WO CON HISTORY: Fracture of pubis COMPARISON: 02/15/2022 plain x-ray. MRI 11/26/2020 TECHNIQUE: Multi-planar CT images were created without IV contrast. Dose reduction techniques were achieved by using automated exposure control and/or adjustment of mA and/or kV according to patient size and/or use of iterative reconstruction technique. FINDINGS: BONES: Subacute/chronic fractures involving the lateral aspect of the right superior pubic ramus and mid inferior right pubic ramus with presence of callus formation but incomplete bony bridging. No additional fracture. No dislocation. Mild bilateral hip osteoarthropathy. Degenerative changes of the spine. SOFT TISSUES: Negative. No visible soft tissue swelling. EFFUSION: None visible. OTHER: Hysterectomy. Mild colonic diverticulosis without evidence of acute diverticulitis IMPRESSION: Subacute or chronic fractures involving the right superior and inferior pubic rami with incomplete bony bridging No acute fracture or dislocation Electronically authenticated by: UNA ELMORE Date: 2022-11-13 09:29 Normal [facility] Alanine aminotransferase [En zymatic activity/volume] in Serum or PlasmaOrdered By: Kyle Calderon on 11-03-2022 ALT [Catalytic activity/Vol] 41 U/L [facility] Albumin [Mass/volume] in Ser um or Plasma by Bromocresol green (BCG) dye binding methoOrdered By: Kyle Calderon on 11-03-2022 Albumin BCG dye [Mass/Vol] 4.0 g/dL 3.5-5.7 [facility] Alkaline phosphatase [Enzyma tic activity/volume] in Serum or PlasmaOrdered By: Kyle Calderon on 11-03-2022 ALP [Catalytic activity/Vol] 95 U/L 34-104 [facility] Aspartate aminotransferase [ Enzymatic activity/volume] in Serum or PlasmaOrdered By: Kyle Calderon on 11-03-2022 AST [Catalytic activity/Vol] 17 U/L 13-39 [facility] Basophils Auto (Bld) [#/Vol] Ordered By: Kyle Calderon on 11-03-2022 Basophils (Bld) [#/Vol] 0.1 10*3/uL 0.0-0.2 [facility] Basophils/100 WBC Auto (Bld) Ordered By: Kyle Calderon on 11-03-2022 Basophils/100 WBC (Bld) 0.9 % . [facility] Bilirubin.direct [Mass/volum e] in Serum or PlasmaOrdered By: Kyle Calderon on 11-03-2022 Bilirubin.direct [Mass/Vol] 0.10 mg/dL 0.03-0.18 [facility] Bilirubin.total [Mass/volume ] in Serum or PlasmaOrdered By: Kyle Calderon on 11-03-2022 Bilirubin [Mass/Vol] 0.7 mg/dL 0.3-1.0 [facility] Complete Blood Count Auto Di ffon 11-03-2022 Basophils (Bld) [#/Vol] 0.1 10*3/uL Normal 0.0-0.2 [facility] Comment on above: Performed By: #### H LUZ MARIA WHELAN, CBC, ESR #### [facility] [address] [place] [address] [place] Basophils/100 WBC (Bld) 0.9 % Normal . [facility] Comment on above: Performed By: #### H LUZ MARIA WHELAN, CBC, ESR #### [facility] [address] [place] [id number] [place] Eosinophils (Bld) [#/Vol] 0.2 10*3/uL Normal 0.0-0.45 [facility] Comment on above: Performed By: #### H EPATIC, CREAT, CBC, ESR #### [address] Eosinophils/100 WBC (Bld) 1.4 % Normal . [facility] Comment on above: Performed By: #### H EPATIC, CREAT, CBC, ESR #### [address] Erythrocyte distribution width (RBC) [Ratio] 14.6 % Normal 11.9-15.3 [facility] Comment on above: Performed By: #### H EPATIC, CREAT, CBC, ESR #### [address] Hematocrit (Bld) [Volume fraction] 37.2 % Normal 34.0-46.4 [facility] Comment on above: Performed By: #### H EPATIC, CREAT, CBC, ESR #### [address] Hemoglobin (Bld) [Mass/Vol] 12.4 g/dL Normal 11.8-15.4 [facility] Comment on above: Performed By: #### H EPATIC, CREAT, CBC, ESR #### [address] Lymphocytes (Bld) [#/Vol] 1.5 10*3/uL Normal 1.00-4.8 [facility] Comment on above: Performed By: #### H EPATIC, CREAT, CBC, ESR #### [address] Lymphocytes/100 WBC (Bld) 12.4 % Normal . [facility] Comment on above: Performed By: #### H EPATIC, CREAT, CBC, ESR #### [address] MCH (RBC) [Entitic mass] 31.0 pg Normal 24.7-34.3 [facility] Comment on above: Performed By: #### H EPATIC, CREAT, CBC, ESR #### [address] MCV (RBC) [Entitic vol] 93.2 fL Normal 80-100 [facility] Comment on above: Performed By: #### H EPATIC, CREAT, CBC, ESR #### [address] Mean Corpuscular HGB Conc 33.3 g/dL Normal 32.0-35.0 [facility] Comment on above: Performed By: #### H EPATIC, CREAT, CBC, ESR #### [address] Monocytes (Bld) [#/Vol] 0.9 10*3/uL High 0.0-0.8 [facility] Comment on above: Performed By: #### H EPATIC, CREAT, CBC, ESR #### [address] Monocytes/100 WBC (Bld) 7.2 % Normal . [facility] Comment on above: Performed By: #### H EPATIC, CREAT, CBC, ESR #### [address] Neutrophils (Bld) [#/Vol] 9.4 10*3/uL High 1.8-7.7 [facility] Comment on above: Performed By: #### H EPATIC, CREAT, CBC, ESR #### [address] Neutrophils/100 WBC (Bld) 78.1 % Normal . [facility] Comment on above: Performed By: #### H EPATIC, CREAT, CBC, ESR #### [address] NRBC% 0.0 /100{WBC} Normal 0-0.5 [facility] Comment on above: Performed By: #### H EPATIC, CREAT, CBC, ESR #### [address] Platelet mean volume (Bld) [Entitic vol] 8.4 fL Normal 6.3-10.7 [facility] Comment on above: Performed By: #### H EPATIC, CREAT, CBC, ESR #### [facility] [address] Platelets (Bld) [#/Vol] 220 10*3/uL Normal 150-450 [facility] Comment on above: Performed By: #### H EPATIC, CREAT, CBC, ESR #### [address] RBC (Bld) [#/Vol] 3.99 10*6/uL Normal 3.60-5.00 [facility] Comment on above: Performed By: #### H EPATIC, CREAT, CBC, ESR #### [address] WBC (Bld) [#/Vol] 12.0 10*3/uL High 3.8-11.6 [facility] Comment on above: Performed By: #### H EPATIC, CREAT, CBC, ESR #### [address] Creatinineon 11-03-2022 Creatinine [Mass/Vol] 0.80 mg/dL Normal 0.60-1.20 [facility] Comment on above: Performed By: #### H EPATIC, CREAT, CBC, ESR #### [address] GFR/1.73 sq M.predicted MDRD (S/P/Bld) [Vol rate/Area] mL/min/{1.73_m2} Normal [facility] Comment on above: Result Comment: PERF ORMED BY: [place] [address] PATHOLOGIST FEED MILLER TAMERA DAO M.D. Performed By: #### H EPATIC, CREAT, CBC, ESR #### [address] Creatinine [Mass/volume] in Serum or PlasmaOrdered By: Kyle Calderon on 11-03-2022 Creatinine [Mass/Vol] 0.80 mg/dL 0.60-1.20 [facility] Eosinophils Auto (Bld) [#/Vo l]Ordered By: Kyle Calderon on 11-03-2022 Eosinophils (Bld) [#/Vol] 0.2 10*3/uL 0.0-0.45 [facility] Eosinophils/100 WBC Auto (Bl d)Ordered By: Kyle Calderon on 11-03-2022 Eosinophils/100 WBC (Bld) 1.4 % . [facility] Erythrocyte Sedimentation Ra moon 11-03-2022 ESR (Bld) [Velocity] 12 mm/h Normal 0-29 [facility] Comment on above: Result Comment: PERF ORMED BY: [place] [address] PATHOLOGIST FEED MILLER TAMERA DAO M.D. Performed By: #### H EPATIC, CREAT, CBC, ESR #### [address] Erythrocyte distribution wid th Auto (RBC) [Ratio]Ordered By: Kyle Calderon on 11-03-2022 Erythrocyte distribution width (RBC) [Ratio] 14.6 % 11.9-15.3 [facility] Erythrocyte sedimentation ra te by Photometric methodOrdered By: Kyle Calderon on 11-03-2022 ESR Photometric method (Bld) [Velocity] 12 mm/hr 0-29 [facility] Globulin Calc (S) [Mass/Vol] Ordered By: Kyle Calderon on 11-03-2022 Globulin (S) [Mass/Vol] 2.2 g/dL [facility] Hematocrit Auto (Bld) [Volum e fraction]Ordered By: Kyle Calderon on 11-03-2022 Hematocrit (Bld) [Volume fraction] 37.2 % 34.0-46.4 [facility] Hemoglobin [Mass/volume] in BloodOrdered By: Kyle Calderon on 11-03-2022 Hemoglobin (Bld) [Mass/Vol] 12.4 g/dL 11.8-15.4 [facility] Hepatic Panelon 11-03-2022 Albumin [Mass/Vol] 4.0 g/dL Normal 3.5-5.7 [facility] Comment on above: Performed By: #### H EPATIC, CREAT, CBC, ESR #### [facility] [address] Albumin/Globulin [Mass ratio] 1.8 {ratio} Normal [facility] Comment on above: Performed By: #### H EPATIC, CREAT, CBC, ESR #### [facility] [address] ALP [Catalytic activity/Vol] 95 U/L Normal 34-104 [facility] Comment on above: Performed By: #### H EPATIC, CREAT, CBC, ESR #### [facility] [address] ALT [Catalytic activity/Vol] 41 U/L Normal 7-52 [facility] Comment on above: Performed By: #### H EPATIC, CREAT, CBC, ESR #### [facility] [address] AST [Catalytic activity/Vol] 17 U/L Normal 13-39 [facility] Comment on above: Performed By: #### H EPATIC, CREAT, CBC, ESR #### [facility] [address] Bilirubin [Mass/Vol] 0.7 mg/dL Normal 0.3-1.0 [facility] Comment on above: Performed By: #### H EPATIC, CREAT, CBC, ESR #### [facility] [address] [place] [address] [place] Bilirubin,Indirect 0.6 mg/dL Normal [facility] Comment on above: Performed By: #### H EPATIC, CREAT, CBC, ESR #### [facility] [address] Bilirubin.indirect [Mass/Vol] 0.10 mg/dL Normal 0.03-0.18 [facility] Comment on above: Performed By: #### H EPATIC, CREAT, CBC, ESR #### [facility] [address] [place] [address] [place] Globulin (S) [Mass/Vol] 2.2 g/dL Normal [facility] Comment on above: Performed By: #### H EPATIC, CREAT, CBC, ESR #### [facility] [address] Protein [Mass/Vol] 6.2 g/dL Low 6.4-8.9 [facility] Comment on above: Performed By: #### H EPATIC, CREAT, CBC, ESR #### [facility] [address] Leukocytes [#/volume] correc edd for nucleated erythrocytes in Blood by Automated counOrdered By: Kyle Calderon on 11-03-2022 WBC corrected for nucl RBC Auto (Bld) [#/Vol] 12.0 10*3/uL 3.8-11.6 [facility] Lymphocytes Auto (Bld) [#/Vo l]Ordered By: Kyle Calderon on 11-03-2022 Lymphocytes (Bld) [#/Vol] 1.5 10*3/uL 1.00-4.8 [facility] Lymphocytes/100 WBC Auto (Bl d)Ordered By: Kyle Calderon on 11-03-2022 Lymphocytes/100 WBC (Bld) 12.4 % . [facility] MCH Auto (RBC) [Entitic mass ]Ordered By: Kyle Calderon on 11-03-2022 MCH (RBC) [Entitic mass] 31.0 pg 24.7-34.3 [facility] MCHC Auto (RBC) [Mass/Vol]Or dered By: Kyle Calderon on 11-03-2022 MCHC (RBC) [Mass/Vol] 33.3 g/dL 32.0-35.0 [facility] MCV Auto (RBC) [Entitic vol] Ordered By: Kyle Calderon on 11-03-2022 MCV (RBC) [Entitic vol] 93.2 fL 80-100 [facility] Monocytes Auto (Bld) [#/Vol] Ordered By: Kyle Calderon on 11-03-2022 Monocytes (Bld) [#/Vol] 0.9 10*3/uL 0.0-0.8 [facility] Monocytes/100 WBC Auto (Bld) Ordered By: Kyle Calderon on 11-03-2022 Monocytes/100 WBC (Bld) 7.2 % . [facility] Neutrophils Auto (Bld) [#/Vo l]Ordered By: Kyle Calderon on 11-03-2022 Neutrophils (Bld) [#/Vol] 9.4 10*3/uL 1.8-7.7 [facility] Neutrophils/100 WBC Auto (Bl d)Ordered By: Kyle Calderon on 11-03-2022 Neutrophils/100 WBC (Bld) 78.1 % . [facility] No Panel InformationOrdered By: Kyle Calderon on 11-03-2022 Estimated GFR (CKD-EPI) > 60.0 mL/Min [facility] Creatinine Clearance (Chem N/A [facility] Nucleated erythrocytes [Pres ence] in Blood by Automated countOrdered By: Kyle Calderon on 11-03-2022 Nucleated RBC Auto Ql (Bld) 0.0 /100{WBC} 0-0.5 [facility] Platelet mean volume Auto (B ld) [Entitic vol]Ordered By: Kyle Calderon on 11-03-2022 Platelet mean volume (Bld) [Entitic vol] 8.4 fL 6.3-10.7 [facility] Platelets Auto (Bld) [#/Vol] Ordered By: Kyle Calderno on 11-03-2022 Platelets (Bld) [#/Vol] 220 10*3/uL 150-450 [facility] Protein [Mass/volume] in Ser um or PlasmaOrdered By: Kyle Calderon on 11-03-2022 Protein [Mass/Vol] 6.2 g/dL 6.4-8.9 [facility] RBC Auto (Bld) [#/Vol]Ordere d By: Kyle Calderon on 11-03-2022 RBC (Bld) [#/Vol] 3.99 10*6/uL 3.60-5.00 [facility] Serum or plasma albumin/glob ulin mass ratioOrdered By: Kyle Calderon on 11-03-2022 Albumin/Globulin [Mass ratio] 1.8 {ratio} [facility] Serum or plasma non-glucuron idated bilirubin measurement (mass/volume)Ordered By: Kyle Calderon on 11-03-2022 Bilirubin.indirect [Mass/Vol] 0.6 mg/dL [facility] WBC Auto (Bld) [#/Vol]Ordere d By: Kyle Calderon on 11-03-2022 WBC (Bld) [#/Vol] 12.0 10*3/uL 3.8-11.6 [facility] XR pelvis 1-2Von 09-29-2022 XR pelvis 1-2V [facility] [employer] Other XR pelvis 1-2V [facility] [employer] Other XR pelvis 1-2V [address] [place] [address] [employer] Other XR pelvis 1-2[place] [address] No [facility] [employer] Other XR pelvis 1-2V XRay Report [employer] Other XR pelvis 1-2V Signed [employer] Other XR pelvis 1-2V Patient: Laly Phillips MR#: [id number] [employer] Other XR pelvis 1-2V 03 [employer] Other XR pelvis 1-2V : 1965 Acct:[id number] [employer] Other XR pelvis 1-2V Age/Sex: 57 / F ADM Date: 09/29/22 [employer] Other XR pelvis 1-2V Loc: [facility] Room: Type : [facility] [employer] Other XR pelvis 1-2V Attending Dr: Kyle Call II, MD [employer] Other XR pelvis 1-2V Copies to: Kyle Call MD [employer] Other XR pelvis 1-2V Ordering Provider: Kyle Call MD [employer] Other XR pelvis 1-2V Date of Service: 09/29/22 [employer] Other XR pelvis 1-2V XR/XR pelvis 1-2V: S32.591D [employer] Other XR pelvis 1-2V Pelvis 3 views. [employer] Other XR pelvis 1-2V CLINICAL HISTORY: Right superior/inferior pubic rami fractures [employer] Other XR pelvis 1-2V COMPARISON: Pelvis study 07/07/2022 [employer] Other XR pelvis 1-2V Examination is suboptimal due to body habitus. [employer] Other XR pelvis 1-2V The patient's right-sided pubic rami fractures are less conspicuous when compared to the prior study [employer] Other XR pelvis 1-2V with questionable calculus formation along the inferior pubic ramus fracture suggestive of healing [employer] Other XR pelvis 1-2V response. No change in alignment is seen. No new additional fractures are noted. Mild degenerative [employer] Other XR pelvis 1-2V changes are noted involving the hips and SI joints. [employer] Other XR pelvis 1-2V XR/XR pelvis 1-2V [employer] Other XR pelvis 1-2V IMPRESSION: [facility] [employer] Other XR pelvis 1-2V HEALING PUBIC RAMI FRACTURES. [employer] Other XR pelvis 1-2V Impression dictated by: Kavon Choi Jr., D.O.09/29/2022 9:46 AM [employer] Other XR pelvis 1-2V Dictation Location: [place] [address] [employer] Other XR pelvis 1-2V Transcribed By: PWS 09/29/22 0946 [place] [employer] Other XR pelvis 1-2V Dictated By: Kavon Choi Jr, DO 09/29/22 0966 [place] [employer] Other XR pelvis 1-2V Signed By: [employer] Other XR pelvis 1-2V 09/29/22 0991 [employer] Other XR pelvis 1-2V [facility] Main [place] [address] [place] [address] XRay Report Signed Patient: Felicity Phillips MR#: [id number] 03 : 1965 Acct:[id number] Age/Sex: 57 / F ADM Date: 09/29/22 Loc: [facility] Room: Type: [facility] Attending Dr: Kyle Call II, MD Copies to: Kyle Call MD Ordering Provider: Kyle Call MD Date of Service: 09/29/22 XR/XR pelvis 1-2V: S32.591D Pelvis 3 views. CLINICAL HISTORY: Right superior/inferior pubic rami fractures COMPARISON: Pelvis study 07/07/2022 Examination is suboptimal due to body habitus. The patient's right-sided pubic rami fractures are less conspicuous when compared to the prior study with questionable calculus formation along the inferior pubic ramus fracture suggestive of healing response. No change in alignment is seen. No new additional fractures are noted. Mild degenerative changes are noted involving the hips and SI joints. XR/XR pelvis 1-2V IMPRESSION: HEALING PUBIC RAMI FRACTURES. Impression dictated by: Kavon Choi Jr., D.O.09/29/2022 9:46 AM Dictation Location: [facility] Transcribed By: [facility] 09/29/22945 Dictated By: Kavon Choi Jr, DO 09/29/2244 Signed By: 09/29/22945 [facility] MR hip RT wo conon 3 MR hip RT wo con [facility] [employer] Other MR hip RT wo con [facility] Main [place] No rt [employer] Other MR hip RT wo con [address] [facility] [employer] [place] [address] [employer] Other MR hip RT wo con MRI Report [employer] Other MR hip RT wo con Signed [employer] Other MR hip RT wo con Patient: Laly Phillips MR#: [id number] [employer] Other MR hip RT wo con 03 [employer] Other MR hip RT wo con : 1965 Acct:[id number] [employer] Other MR hip RT wo con Age/Sex: 57 / F ADM Date: 07/27/22 [employer] Other MR hip RT wo con [facility] Room: Type : [facility] [employer] Other MR hip RT wo con Attending Dr: Kyle Call II, MD [employer] Other MR hip RT wo con Copies to: Kyle Call MD [employer] Other MR hip RT wo con Ordering Provider: Kyle Call MD [employer] Other MR hip RT wo con Date of Service: 07/27/22 [employer] Other MR hip RT wo con MR/MR hip RT wo con: S32.591A CLOSED FX RAMUS OF RIGHT PUBUS [employer] Other MR hip RT wo con MRI of the right hip without IV contrast. [employer] Other MR hip RT wo con Reason for exam: History of right inferior pubic ramus fracture. Right hip pain. [employer] Other MR hip RT wo con COMPARISON: Pelvis 07/07/2022 [employer] Other MR hip RT wo con FINDINGS: Minimal joint effusion is seen. There appears to be a fractures involving the right [employer] Other MR hip RT wo con superior and inferio r pubic ramus with associated bone marrow edema. No significant displacement of [employer] Other MR hip RT wo con these fractures are seen. Labrum appears grossly intact. No hip fracture is seen. Muscle groups [employer] Other MR hip RT wo con appear grossly unremarkable. Visualized intrapelvic contents demonstrate no acute findings. [employer] Other MR hip RT wo con MR/MR hip RT wo con [employer] Other MR hip RT wo con IMPRESSION: Nondisplaced fractures involving the right superior and inferior pubic ramus with [employer] Other MR hip RT wo con associated bone marrow edema. [employer] Other MR hip RT wo con Impression dictated by: Kavon Choi Jr., D.O.07/27/2022 11:43 AM [employer] Other MR hip RT wo con Dictation Location: [place] [address] [employer] Other MR hip RT wo con Transcribed By: PWS 07/27/22 [facility] [employer] Other MR hip RT wo con Dictated By: Kavon Choi Jr, DO 07/27/22 [facility] [employer] Other MR hip RT wo con Signed By: [employer] Other MR hip RT wo con 07/27/22 [facility] [employer] Other MR hip RT wo con [facility] Main [place] [address] [place] [id number] MRI Report Signed Patient: Felicity Phillips MR#: [id number] 03 : 1965 Acct:[id number] Age/Sex: 57 / F ADM Date: 07/27/22 Loc: [facility] Room: Type: [facility] CLI Attending Dr: Kyle Call II, MD Copies to: Kyle Call MD Ordering Provider: Kyle Call MD Date of Service: 07/27/22 MR/MR hip RT wo con: S32.591A CLOSED FX RAMUS OF RIGHT PUBUS MRI of the right hip without IV contrast. Reason for exam: History of right inferior pubic ramus fracture. Right hip pain. COMPARISON: Pelvis 07/07/2022 FINDINGS: Minimal joint effusion is seen. There appears to be a fractures involving the right superior and inferior pubic ramus with associated bone marrow edema. No significant displacement of these fractures are seen. Labrum appears grossly intact. No hip fracture is seen. Muscle groups appear grossly unremarkable. Visualized intrapelvic contents demonstrate no acute findings. MR/MR hip RT wo con IMPRESSION: Nondisplaced fractures involving the right superior and inferior pubic ramus with associated bone marrow edema. Impression dictated by: Kavon Choi Jr., D.OReilly07/27/2022 11:43 AM Dict[employer] Location: [place] [address] Transcribed By: [facility] 07/27/22 1143 Dictated By: Kavon Choi Jr, DO 07/27/22 1140 Signed By: 07/27/22 1143 Normal [facility] XR pelvis 1-2Von 07-07-2022 XR pelvis 1-2V [facility] Main [address] [address] XRay Report Signed Patient: Felicity Phillips MR#: [id number] 03 : 1965 Acct:[id number] Age/Sex: 57 / F ADM Date: 07/07/22 Loc: [facility] Room: Type: [facility] CLI Attending Dr: Kyle Call II, MD Copies to: Kyle Call MD Ordering Provider: Kyle Call MD Date of Service: 07/07/22 XR/XR hip RT min 2V(w/wo pelvis)*: PAIN ([id number]) XR/XR pelvis 1-2V: PAIN 2 views right hip single view pelvisplain film COMPARISON:None HISTORY:Status post right pubic rami fracture. Right hip pain The nondisplaced right inferior pubic ramus fracture redemonstrated. Bony alignment unchanged. No hip fracture. Adequate hip joint space.No significant degeneration. Articular surfaces preserved. XR/XR hip RT min 2V(w/wo pelvis)* IMPRESSION:Unchanged right inferior pubic ramus fracture. No hip fracture. 2 views of the pelvis Nondisplaced right inferior pubic ramus fracture identified. No additional fractures seen. No diastases of the SI joints. Hip joint space is adequate. No hip fracture. IMPRESSION: Nondisplaced right inferior pubic ramus fracture. Impression dictated by: Ceasar Angeles M.D.07/07/2022 5:19 PM Dict[employer] Location: [place] [address] Transcribed By: [facility] 07/07/221718 Dictated By: Ceasar Angeles DO 07/07/221715 Signed By: 07/07/221718 [facility] XR pelvis 1-2V [facility] [employer] Other XR pelvis 1-2V [facility] Main [facility] [employer] Other XR pelvis 1-2V [address] [place] [address] [employer] Other XR pelvis 1-2V [place] [address] No rt [employer] Other XR pelvis 1-2V XRay Report [employer] Other XR pelvis 1-2V Signed [employer] Other XR pelvis 1-2V Patient: Laly Phillips MR#: [id number] [place] Other XR pelvis 1-2V 03 [employer] Other XR pelvis 1-2V : 1965 Acct:[id number] [employer] Other XR pelvis 1-2V Age/Sex: 57 / F ADM Date: 07/07/22 [employer] Other XR pelvis 1-2V Loc: [facility] Room: Type : [facility] [employer] Other XR pelvis 1-2V Attending Dr: Kyle Call II, MD [employer] Other XR pelvis 1-2V Copies to: Kyle Call MD [employer] Other XR pelvis 1-2V Ordering Provider: Kyle Call MD [employer] Other XR pelvis 1-2V Date of Service: 07/07/22 [employer] Other XR pelvis 1-2V XR/XR hip RT min 2V(w/wo pelvis)*: PAIN [employer] Other XR pelvis 1-2V ([id number]) XR/XR pelvis 1-2V: PAIN [employer] Other XR pelvis 1-2V 2 views right hip single view pelvisplain film [employer] Other XR pelvis 1-2V COMPARISON:None [employer] Other XR pelvis 1-2V HISTORY:Status post right pubic rami fracture. Right hip pain [employer] Other XR pelvis 1-2V The nondisplaced right inferior pubic ramus fracture redemonstrated. Bony alignment unchanged. No [employer] Other XR pelvis 1-2V hip fracture. Adequate hip joint space.No significant degeneration. Articular surfaces preserved. [employer] Other XR pelvis 1-2V XR/XR hip RT min 2V(w/wo pelvis)* [employer] Other XR pelvis 1-2V IMPRESSION:Unchanged right inferior pubic ramus fracture. No hip fracture. [employer] Other XR pelvis 1-2V 2 views of the pelvis [employer] Other XR pelvis 1-2V Nondisplaced right inferior pubic ramus fracture identified. No additional fractures seen. No [employer] Other XR pelvis 1-2V diastases of the SI joints. Hip joint space is adequate. No hip fracture. [employer] Other XR pelvis 1-2V IMPRESSION: Nondisplaced right inferior pubic ramus fracture. [employer] Other XR pelvis 1-2V Impression dictated by: Ceasar Angeles M.D.07/07/2022 5:19 PM [employer] Other XR pelvis 1-2V Dictation Location: [place] [address] [employer] Other XR pelvis 1-2V Transcribed By: [facility] 07/07/22 171 [employer] Other XR pelvis 1-2V Dictated By: Ceasar Angeles DO 07/07/221715 [employer] Other XR pelvis 1-2V Signed By: [employer]IFIN Other XR pelvis 1-2V 07/07/[address] hip RT wo [facility] 2 CT hip RT wo [facility] [place] [address] CT Scan Report Signed with Addenda Patient: Felicity Phillips MR#: [id number] 03 : 1965 Acct:[id number] Age/Sex: 57 / F ADM Date: 07/05/22 Loc: ER Room: Type: [facility] ER Attending Dr: Copies to: Narayan Bridges APRN Ordering Provider: Narayan Bridges APRN Date of Service: 07/05/22 CT/CT hip RT wo con: 2 wks hip pain, injections not effective ADDENDUM 1 There is small region of linear lucency and cortical defect involving the RIGHT inferior pubic ramus suggesting nondisplaced fracture. Correlate with clinical history of trauma. Impression dictated by: Ceasar Angeles M.D.07/06/2022 8:18 AM Dictation Location: [place] [address] Addendum Dictated By: Ceasar Angeles DO Addendum Signed By: 07/06/22817 Addendum Cosigned By: DD/ TD/TT: 07/06/22 CTR RIGHT hip without contrast TECHNIQUE: The CT exam was performed using one or more the following dose reduction techniques: Automated exposure control, adjustment of the MA and/or Kv according to patient size, or use of the iterative reconstruction technique. COMPARISON:None HISTORY:RIGHT hip pain for 2 weeks. Difficulty walking. No fracture. Adequate bony alignment. Adequate tip joint space. Articular bony surfaces preserved. No acute bony destruction. No bony lesion. The soft tissues unremarkable. CT/CT hip RT wo con IMPRESSION: No acute bony findings or significant degenerative changes. No CT bony findings of avascular necrosis. Impression dictated by: Ceasar Angeles M.D.07/05/2022 3:09 PM Dictation Location: [place] [address] Transcribed By: [facility] 07/05/22 1509 Dictated By: Ceasar Angeles DO 07/05/22 1504 Signed By: 07/05/22 1509 [facility] Covid-19 PCR (CVDTBH)on 06-17 SARS-CoV-2 (COVID-19) RNA NANCY+probe Ql (Unsp spec) Detected Critically abnormal NOT DETECTED [facility] Comment on above: Result Comment: This test is not yet approved or cleared by the [place] FDA. When there are no FDA-approved or cleared tests available, and other criteria are met, FDA can make tests available under an emergency access mechanism called an Emergency Use Authorization (EUA). The EUA for this test is supported by the [place] of Health and Human Service's (HHS's) declaration that circumstances exist to justify the emergency use of in vitro diagnostics for the detection and/or diagnosis of the virus that causes COVID-19. This EUA will remain in effect (meaning this test can be used) for the duration of the COVID-19 declaration justifying emergency of IVDs, unless it is terminated or revoked by FDA (after which the test may no longer be used). Performed By: #### C VDTB #### [facility] [address] [place] [address] Dr. Heather Khan INFLUENZA A AND B [facility] 06-30 [facility] SEE BELOW Normal [facility] Comment on above: Result Comment: Nega tive for Flu A protein angiten. Infection due to Flu A cannot be ruled out. Flu A angiten in the sample may be below the detection limit of the test. Performed By: #### I NFLUAB #### [facility] [address] [place] [address] Dr. Heather [facility] SEE BELOW Normal [facility] Comment on above: Result Comment: Nega tive for Flu B protein antigen. Infection due to Flu B cannot be ruled out. Flu B antigen in the sample may be below the detection limit of the test. Performed By: #### I NFLUAB #### [facility] [address] [place] [address] Dr. Heather Khan INFLUENZA A AG Negative Normal NEGATIVE SEE COMMENT [facility] Comment on above: Performed By: #### I NFLUAB #### [facility] [address] [place] [address] Dr. Heather Khan INFLUENZA B AG Negative Normal NEGATIVE SEE COMMENT [facility] Comment on above: Performed By: #### I NFLUAB #### [facility] [address] [place] [address] Dr. Heather Khan INTERNAL CONTROLS Within Normal Limits Normal Wi thin Normal Limits [facility] Comment on above: Performed By: #### I NFLUAB #### [facility] [address] [place] [address] Dr. Heather Khan Lab Reportson 05-26-2022 Lab Reports [id number] .[id number]:127 Normal [facility] Ambulatory Visit Summaryon 1 07-25-2021 Ambulatory Visit Summary FELICITY PHILLIPS :1965 Visit Date:05/25/2022 Ambulatory Visit Instructions Your Care Team Attending Physician - DENISSE BRUNNER, Jose Carlos Arias Primary Care Physician - Kayla BRUNNER, Jose Antonio This Is Your Medications List carvedilol (carvedilol 12.5 mg Tab) ciprofloxacin (Cipro 500 mg Tab) doxycycline (doxycycline hyclate 100 mg Cap) furosemide (Lasix 40 mg Tab) hydroxychloroquine (Plaquenil) leflunomide (leflunomide 20 mg Tab) rituximab (Rituxan) sacubitril-valsartan (Entresto 49 mg-51 mg oral tablet) spironolactone (spironolactone 25 mg Tab) Procedures Performed Lumpectomy w/ Lymph node removal left arm (2007), Appendectomy, Cholecystectomy, NORMA BSO - Total abdominal hysterectomy and bilateral salpingo-oophorectomy . Medications What How Much When Instructions Unchanged carvedilol (carvedilol 12.5 mg Tab) 1 Tablets By Mouth 2 times a day Unchanged ciprofloxacin (Cipro 500 mg Tab) 1 Tablets By Mouth Every 12 hours Duration: 9 Days Unchanged doxycycline (doxycycline hyclate 100 mg Cap) 1 Capsules By Mouth 2 times a day Duration: 9 Days Unchanged furosemide (Lasix 40 mg Tab) 1 Tablets By Mouth Every day Unchanged hydroxychloroquine (Plaquenil) 200 Milligram By Mouth 2 times a day Unchanged leflunomide (leflunomide 20 mg Tab) Unchanged rituximab (Rituxan) Unchanged sacubitril-valsartan (Entresto 49 mg-51 mg oral tablet) 1 Tablets By Mouth 2 times a day Unchanged spironolactone (spironolactone 25 mg Tab) 1 Tablets By Mouth Every day Allergies Bactrim (Hives) Enbrel (Unknown) methotrexate (CHF) Problems Ongoing - Any problem that you are currently receiving treatment for. Axillary abscess BMI 40.0-44.9, adult Cardiomyopathy Chronic combined systolic and diastolic heart failure Eczema Furuncle of right axilla HTN (hypertension) Immunodeficiency Left ventricular systolic dysfunction Lumbar radiculopathy lymph node removal Morbid obesity Nonischemic cardiomyopathy Rheumatoid arthritis Historical - Any problem that you are no longer receiving treatment for. HTN RA Guillermo Jones [facility] General Surgery Office/Clini c Noteon 05-25-2022 General Surgery Office/Clinic Note Chief Complaint follow up in-office I/D HPI Staff 6 day follow up post in-office I/D right axillary abscess. Wound culture with moderate growth staph aureus. Continues on Cipro and Doxycycline. History of Present Illness 6 days s/p I & D of right axillary abscess; doing well, no drainage, no pain or redness, no fevers; cx with reagan sensitive staph aureus; completing course of cipro and doxycycline. Review of Systems ;;gs Physical Exam skin: right axilla with minimal residual induration, no fluctuance or drainage, no erythema, 2 mm open area. Assessment/Plan 1. Axillary abscess (L02.411: Cutaneous abscess of right axilla) nearly resolved; complete course of antibiotics; keep area clean and dry; call with problems/questions. Follow-up No qualifying data available Problem List/Past Medical History Ongoing Axillary abscess BMI 40.0-44.9, adult Cardiomyopathy Chronic combined systolic and diastolic heart failure Eczema Furuncle of right axilla HTN (hypertension) Immunodeficiency Left ventricular systolic dysfunction Lumbar radiculopathy lymph node removal Morbid obesity Nonischemic cardiomyopathy Rheumatoid arthritis Historical HTN RA Procedure/Surgical History Lumpectomy w/ Lymph node removal left arm (2007), Appendectomy, Cholecystectomy, NORMA BSO - Total abdominal hysterectomy and bilateral salpingo-oophorectomy . Medications carvedilol 12.5 mg Tab, 12.5 mg= 1 tab(s), Oral, BID Cipro 500 mg Tab, 500 mg= 1 tab(s), Oral, q12hr doxycycline hyclate 100 mg Cap, 100 mg= 1 cap(s), Oral, BID Entresto 49 mg-51 mg oral tablet, 1 tab(s), Oral, BID Lasix 40 mg Tab, 40 mg= 1 tab(s), Oral, Daily leflunomide 20 mg Tab Plaquenil, 200 mg, Oral, BID Rituxan spironolactone 25 mg Tab, 25 mg= 1 tab(s), Oral, Daily Allergies Bactrim (Hives) Enbrel (Unknown) methotrexate (CHF) Social History Alcohol - Denies Alcohol Use, 03/16/2013 Substance Abuse - Denies Substance Abuse, 01/16/2011 Tobacco - Denies Tobacco Use, 05/29/2010 Never (less than 100 in lifetime) Tobacco Use:. Never Smokeless Tobacco Use:., 05/19/2022 Family History Diabetes mellitus type 2: Mother. Heart failure: Mother. Hypertension: Mother. Ovarian cancer: Sister. Immunizations Vaccine Date Status diphtheria/pertussis, acel/tetanus adult 05/10/2022 Given diphtheria/pertussis, acel/tetanus adult 06/01/2010 Given Normal [facility] Comment on above: Result Comment: Elec tronically Signed By: DENISSE BRUNNER, Jose Carlos [place]\Date and Time Signed: 05/25/22 14:59 EST Provider Letter FTon 05-25 Provider Letter [facility] May 25, 2022 FELICITY PHILLIPS [address] [place] [id number] FELICITY PHILLIPS 1965 To Whom It May Concern, Please excuse above patient from work May 18- May 25. May return to work May 26.. Sincerely, Dr. Jose Carlos Madrid MD General Surgery Normal [facility] CULTURE WOUNDon 05-22-2022 CULTURE WOUND Culture Observations : No growth of anaerobes at 72 hours. Isolate 1 Staphylococcus aureus Moderate growth of ORGANISM 1 Staphylococcus aureus ANTIBIOTIC M.I.C RX STATUS Beta-Lactamase Neg NEG F Cefoxitin Screen Neg NEG F Benzylpenicillin >=0.5 R F Gentamicin <=0.5 S F Ciprofloxacin <=0.5 S F Levofloxacin <=0.12 S F Moxifloxacin <=0.25 S F Inducible Clindamycin Resistance Neg NEG F Erythromycin <=0.25 S F Clindamycin <=0.25 S F Quinupristin/Dalfopri stin <=0.25 S F Linezolid 1 S F Vancomycin 1 S F Tetracycline <=1 S F Rifampicin <=0.5 S F Trimethoprim/Sulfamet hoxazole <=10 S F Oxacillin <=0.25 S F Normal [facility] Comment on above: Performed By: #### W OUNDCX #### [facility] [address] [place] [address] Dr. Heather Khan Ambulatory Visit Summaryon 1 07-19-2021 Ambulatory Visit Summary FELICITY PHILLIPS :1965 Visit Date:05/19/2022 Ambulatory Visit Instructions Your Diagnosis Cutaneous abscess of right axilla BMI 40.0-44.9, adult Your Care Team Attending Physician - Jose Carlos MADRID MD Primary Care Physician - Jose Antonio Garza MD This Is Your Medications List Contact prescribing physician if questions or concerns carvedilol (carvedilol 12.5 mg Tab) ciprofloxacin (Cipro 500 mg Tab) doxycycline (doxycycline hyclate 100 mg Cap) furosemide (Lasix 40 mg Tab) hydroxychloroquine (Plaquenil) leflunomide (leflunomide 20 mg Tab) rituximab (Rituxan) sacubitril-valsartan (Entresto 49 mg-51 mg oral tablet) spironolactone (spironolactone 25 mg Tab) Procedures Performed Lumpectomy w/ Lymph node removal left arm (2007), Appendectomy, Cholecystectomy, NORMA BSO - Total abdominal hysterectomy and bilateral salpingo-oophorectomy . Discharge Vitals Heart Rate (Peripheral) 80 Respiratory Rate 16 Blood Pressure 120/82 Height 154.9 cm Height 61 in Weight 107 kg Weight 235.4 lb BMI 44.59 What to do next Scheduled Follow-Up Appointments Tuesday 2:40 PM EST With: Jose Carlos MADRID MD Where: General Surgery Denisse/Sharmin [facility] Physician Referralon 022 Physician Referral [id number] .[id number]:127 [facility] Coding Summary.on 05-12-2022 Coding Summary. CD:[id number] G h0bWw+PGhlYWQ+BB3DZZA yI81ixWFybS5EH3qWRT8Z RVYBJKQJMP0VTI1waNI8U ErxI5FksqLi GhkejYOzLF40XRh0MCN9v WikDYjekX1qoUYqA8z2Ul TkJT66vN80SHktIZEkEfE 3LjZpbjsgbWFy Y2hlWqGvkRBcJyh+PHRhY mxlIHdpZHRoPScxMDAlJy ConRgfNR5iBy2rFYQqLGB vbGxhcHNlOiBj o8ytMLIuPAebKR5lsMwrM 7ClrZA5ZCUza5z6Mz69xK I+ATRaQHC6jHibCLoem46 2QcKqz6lfFCY2 kBEbBOwsJEX4P26kc0D4Z TCaCURfLUF3iUB8rS7rvK oegraaZ6RqrHTbErV4ZIH 1aNWzuF3whNqa glkszQ6mLya+O34ZLT0QU CGCAM1ENll8H3YoKlcvvQ I+OA04KTPqRG57mDRfcUP ti9ypqAy5NpKv WQHwDRK7iJbnNThpl6PyM JEwI90rcLMfu8Q1UDAwaO ubdVMnLuMmtDU7bP3iRNd xhnmry2dlpqpx Wloxa2aalt35zK07M62sL OvrUSNdXQT6ZACxUTPxtG osrm4lxG3uOo3+YJoii3t ss7pteCq3FoHg FTHuwcTjrOebMYO7b2YxP g05A8VlaZelw8OtBwj8zp 00dYRqt5C7aGY9AIznQBH apY7mBEyaFgM7 MVVpBnIkmM37kVBtYRuyU t6sfLerbZjiLK0wOMUeru goAYUwlI9qJBYzbYUqmNy cDQ9vZHDynloe s907GoNpFPZ5AVDpvDJjP 3BmiN4wOhBoNXUaBUMoI5 BeiIRpPXgjH606JAhhVfX 8AJKqpgHvT8Wq ICGuiYscRdN6a6X3Vp8Ao 8UpkoqpXBO7VFrlKJIyKm C7RvNwUcJ7P0EsHnu4TKO olQmgTF1eS1Vi QWCqalgzxcihnYK1PDOlP OIslD02iTXxYHcoBx1uc0 V9s100PTDzBUMjaC64Ev6 udDogMTBwdCBU qR3jrdupg1relqahLuAhG TLuMVr9HYt2OCBtnFofJi OwDFW9JlX1VOE5jKMukB2 ekXgutgpwxQ6h Oyc+T81vxR3jFCB7EZO0q ivcUAVtdiSnYP76MZ01V2 RyPjwvdGFibGU+PGRpdiB ngVfzJF9uItZy v8pma9IyGVpgP8RhQTXsH XomJxu4WPUzMLU6kSB5xA 9fIJVqGQbqi7B7nCI0E8M kdvOcsu4si1pq JPAvIJkzC48oyBWav8D8Z KTsnZK0IAEnbGysTxCbpQ 93Oyc+FEIisKtjk4LsNsj rj6czs0rurLs5 CeXoXHKgqzNrnOdmWTM6v 8TdHo86C14aDUhmOXFrAW PdSZPoTPTywFhflp6cdO9 wIi8+PGNvbCB3 pRX8zC7iIYTtBvR2MUcxI 365XuUrjPDxBzqod9ybn5 rncFk3JrZyICMkueGpvGo cPPG4f0FrGt88 U05hYAiwGBUtTIZyYEFrI XVhzMvuih2jjP8tEg2+PC 0ts5qezf12uF95vXJ+PHR eSQH6lFhmBCmh UCXnlS5wTBgbBhH7SAFwV hDcaV80eJRgUFmzTh6cmR dslKlrYW3oGEYrzpwux99 7JiUly7raBVGu mATnSSpkMVH8F10mv5O4A JAsKEEsBEV9hYV8lI8ruC lnbjogbGVmdDsgdmVydGl lDHqjHFrmT049 IHRvcDsnPlBhdGllbnQgT qLcQRr9O4QkIux9AUItuP epCC0ipKKqMUhkRh5cvHm deIseIN7zXBPb fjvci656AfFfi3edPKWpr QDgXCpzEOK7T73vz1R5IZ DkGCYzTKA3qPP7lH5isRm nbjogbGVmdDsg ucKtkXnvBYmdAGxuQ241I HRvcDsnPkJpcnRoIERhdG Z7NC68ET70uNZfb9M9wMU 0I0AzUOQajqzr sfjanDI6UCYrLXKliV47T g5kiVfuVt9iYITkXJO7CX CcqWYrS1NatQ3tLzViHOJ pDAZoL5JtjNNq EAwgT735HTvtGdM2IKWcr tLhO0EbCCSizVqaRaB4m6 S3Gh4TI1I2EI21IT37vPY dx7Z8yRW8H7Kl GQRkwcqysmwlgEU7BDRhY PAhpN89Rj9eaPwtBg8pWK HbVXY5UKZxzLOnY4KkjA6 yOiAjMDAwMDAw H4XcqZBwFUxlK346FRsgB yZ5FXBrsuKeK2CxMJDeuZ blVpR3g2A2Ez1RNYj2JO5 4SN23yOLle6N5 jPC7O3LrEKZcwebvsckom CB2RLGrQWEidU04Oi1gtB lpIm1yYSJiESF6LLQcuEA pX4UlrF0iNbKq LAGfCEPvN9CxeKOdZHebI 142TXrjAjK0TOWaueWoT2 ApLVIpgFsvDsC5j6O7Ah7 KECPeDO48DXF8 vAC3JG31AK05A2XzHdxwx GFibGU+PHRhYmxlIHdpZH RoPScxMDAlJyBzdHlsZT0 rWr7cCLVpZKJf nMzglYYjPyDvw8cqZYXiI EbkWS9fdBxhH8NpqQX3TM Czo7e5Pq51P85kV6CvyTY +QVIhzKE9rUK5 xO2gChZxBcI8TVtwR005D wIbgIUyJgxov6jmb7cctA p3BtZ4XGDgchFirQajYPX 7v7ApEy60V42i IHdpZHRoPSIxNSUiIHZhb Bbavw3wrI1yOq4+PGNvbC W4iEN8bB8hWmWjVjH3BXa vD940GwTelYOv Aibbm9rkl2mghFk3SzJdP HEriyNglZfuMWR9r4PyQu 43R5YdjUild4RoJys5vj2 3oAIbi9U2eFO0 R0PtZBQohfaxfVWwwMjnH K1zJKQskphsGLYvzC8wIB MhC6m0YqViJbE5DGwpM3I kmrZ6QJHtvKGf PMsbYMD5D33bp1F1SPRsW NUvQSW0lVZ8xI0ztYwnwf ogbGVmdDsgdmVydGljYWw nARzgQ959GNFr jMmbIGEqjL9fSGOydEYpz IuySC0gFJGkzrwyYpJKNJ xJRkYsIEpVRFkgQTwvdGQ +UVWiTYY7zKgo BEoqWIOiiE3cOPLwQ8g6J nUyGrZ8SOozE1SbAPIynt nyPl42tK7wRdDrIsM9ZPs cI9YtccP1NEIk cEOtGQajOML6U03vn0X6Y QUqVICaDVG3nNN0oA0drM lnbjogbGVmdDsgdmVydGl sIZssBSjcJ167 TPLglGltKgGaIpCvWnK6L cY7W2NrZgu7HXYabOnnUN 8skEDeQHnuXb7sdApowKe wBW6jOOUhtakq INPqhC7eRZMigHFriRfgX I9vBMBechkud364KgUbEK I0FUErtPOmH4TqlA1bKbP tVVEcXCFtS4Vt zUYiGJlgK280IExuRrE6Z WPchjJpR2WbLLCchCnjYz X3z4D9Bj99IGLLIKUrhwg vdGQ+PHRkIHN0 pSzqVMazEOGgoH5jPFLcO 2a8QwCvOcX5YXcjC1BqSB JztjnnEr02wC7jUxGvYtD 5TGszE3DmzaQ9 GIThcKHuKDnwBLD2I93jq 1X9UZXzYJTbLKQ2qDR3dD 1hbGlnbjogbGVmdDsgdmV ydGljYWwtYWxp L056ZQZxnKevRtJoxUEyU TwvdGQ+BWVhMBX9oOjgJN sfZOZrlG9iZMVzR6n5NlZ yMpO4SDhmL7Cd ROBvmxppSl81xZ1aObAdM sM2KLlfQ7UnvuF8PJJclW PyTDwkJSS3W81ed6P8DZA tHYZzUDR1hDS1 iV1lqWmstnfjtEWlvLagm cAsdPipJUreAVjqW904JZ BonPfrTjSkLZUgAO6zdQe vdGQ+UE26sa05 X6BaImzsXfv3OFLpLIT4v YG3mQ4aDNUfSSdrx3V8oJ Y7A2YagkRqjc5px5fkWQE wNJhlV43skYNp r8H0SYQbjIH0HQOtmJneL wHhmA66Bzg+PGNvbGdyb3 LsZcvhi7eqc5saxOm5IfN wJSIgdmFsaWdu GJC5p9OvAt10C82pDFvjR HRoPSIzMCUiIHZhbGlnbj 3azP8mRr1+QNOsjFO2hOE 2uY7nVaDeBcK3 ZZeqW138VzLlxHFiRpxso 3bgl2gyoVo0KmRhHYNtul ChlVztYQQ7g5MkUr90U9X lzFebm2UtZim7 la24cQVzz6V6bTX4H2SkI FCyihrfhUNkxEqqPA0nQR VgfhbxSAYvcY5fCQBfA5v 6GkIqKgH9CPuo R0XggjQ6BNTqbIPxIMWzg FUIeO8vootwn2siwtqaFq OxRXUrMNi3OKp4GAFwuWw mZhIhYUA0QbP3 WYT9dAYgrP8aqLfzzxnqe G9wOyc+FXp5r0rbiDMzHG 8zzUA1UQ89QT58oUKxg6K 5oAD3Z1LfEVLh tstjgxbjuFK8ERMoZNNha C79Me9nuCptRo9xDPMnIV V0TUVzuADlR9YkxI7fQxG oXKSgIBEwE5Ez zNUeVXghK249UMvoYoS9Q KIrneAnC3QlRTKqmOsgLw U0b6I6Rs5EYP97YP45KZ1 6jXXhv1H2lXX2 A1YrIJMrsaroycenkBF8N EMaXXEgfO21Vc8kbInlDx 7pRWKtNMS4JEOspQZtV3M ssT7rOcBoRQWe CJOdR1AunIFdANhnZ944X TpxUmK2QGOpwzWaR6QlHM IuxWckYoZ3e4D8Ps2XKp9 8SD59FO78fADa f3K0dNA9C0YmWBHewblqf spziKE9DEQtKWMwiC52Ey 7qpJflFu0zKXJpYKA7RYY eoWLjB1TsmY4d HiFdFLZjHOHcX4OylDDwR LeuP249NLmeAzV1QPQpxm CmW2ImREWyjXhaOiA9x8T 2Xs1RMVwypxx2 U0RvGflflNQ+TM22IZJlR C07hJDimDVvj2lqqSi7Cy FnASLeQNH8dVdaRGqkx6R bOTVlJ67fkJTc c2U6 (more content not included)... Normal [facility] Consent for Treatmenton 04-18 Consent for Treatment [id number]#1 .00CD:127 Normal [facility] Discharge Documentationon Discharge Documentation [id number] 1.00CD:127 Normal [facility] ED Clinical Summaryon 2021 ED Clinical Summary [place] [id number] ED Clinical Summary Person Information Name: FELICITY PHILLIPS [facility]ann/[facility] Age: 56 Years : 1965 Sex: Female Language: Turkish PCP: Jose Antonio Garza MD Marital Status: Phone: [phone] Visit Id: Visit Reason: Finger laceration; LEFT FINGER LACERATION Speciality: Acuity: 4 Enc Type: Emergency Med Service: Emergency Arrival: 05/10/2022 09:03:11 Discharge: 05/10/2022 09:54:56 LOS: 000 00:51 Checkin: 05/10/2022 09:03:11 Checkout: 05/10/2022 09:54:56 Dispo Type: Home (Routine DC) EVENTS: Event Name Event Status Request Date/Time Start Date/Time Complete Date/Time Arrive Complete 05/10/2022 09:03:11 05/10/2022 09:03:11 05/10/2022 09:03:11 Document Home Meds Request 05/10/2022 09:03:11 Triage Complete 05/10/2022 09:03:11 05/10/2022 09:12:23 05/10/2022 09:12:23 Bed Assign Complete 05/10/2022 09:05:17 05/10/2022 09:05:17 05/10/2022 09:05:17 Dr Exam Complete 05/10/2022 09:05:17 05/10/2022 09:05:52 05/10/2022 09:05:52 RN Exam Complete 05/10/2022 09:05:17 05/10/2022 09:20:55 05/10/2022 09:20:55 Registration Complete 05/10/2022 09:05:52 05/10/2022 09:06:34 05/10/2022 09:36:19 Patient Care Complete 05/10/2022 09:11:43 05/10/2022 09:29:37 Meds Admin Complete 05/10/2022 09:16:34 05/10/2022 09:31:52 Discharge Complete 05/10/2022 09:30:56 05/10/2022 09:55:01 05/10/2022 09:55:01 Reg Complete Request 05/10/2022 09:36:19 Reg Bed Request Complete 05/10/2022 09:36:19 05/10/2022 09:36:19 05/10/2022 09:36:19 Transfer Complete 05/10/2022 09:55:01 05/10/2022 09:55:01 05/10/2022 09:55:01 ADDRESS: [address] [place] [phone] [facility] DOC NOTES: MEDICAL INFORMATION: Prescriptions Given: Medications to Continue with No Changes Other Medications acetaminophen-hydroco done ([place] 325 mg-5 mg oral tablet) 1 Tablets By Mouth every 6 hours as needed as needed for pain. Refills: 0. etanercept (Enbrel) 50 Milligram Subcutaneous every week. folic acid (folic acid 1 mg Tab) 1 Tablets By Mouth every day. furosemide (Lasix 20 mg Tab) 1 Tablets By Mouth every day. Refills: 0. hydroxychloroquine (Plaquenil) 200 Milligram By Mouth 2 times a day. methotrexate 15 Milligram By Mouth every week. naproxen (Naprosyn 500 mg Tab) 1 Tablets By Mouth 2 times a day as needed for pain. Refills: 0. naproxen (Naprosyn 500 mg Tab) 1 Tablets By Mouth 2 times a day. Refills: 0. predniSONE (predniSONE 10 mg Tab) 1 Dose Separtor By Mouth As Directed. 6tab/day x7days,5tab/day x7days,4tab/day x7day,3tab/day x7day,2tab/day x7day,1tab/rfvs5oau. Refills: 0. PATIENT EDUCATION INFORMATION: Instructions: Follow up: With: Address: When: Jose Antonio Garza [address], [place] [address] Business (1) In 3 days DIAGNOSIS: Finger laceration Normal [facility] ED Note-Physicianon 05-10-20 ED Note-Physician Basic Information Time Seen: Mamadou Gonzalez DO 05/10/2022 09:05 Chief Complaint finger laceration to left index finger. States cut finger with knife. Denies anticoagulants. States tetanus shot up to date. Bleeding controlled with bandage from home. History of Present Illness 56 female presents emergency department laceration to the left index finger. Patient states just prior to arrival she was cutting schreiber and she accidentally lacerated the radial side of her left index finger at the DIP joint. Last tetanus is unknown. She denies any other associated injuries or complaints. She came to the ER because she could not get this to stop bleeding but after I took off the bandage here it does look like the bleeding has stopped. She denies any other problems with bleeding is not taking any blood thinners. No other aggravating or relieving factors no other associated symptoms no other prior treatments or complaints. Family: Reviewed and noncontributory Social: lives at home Review of systems negative unless otherwise specified in the HPI. Physical Exam Vitals & Measurements T: 36.7 ?C(Oral) HR: 68(Peripheral) RR: 20 BP: 146/88 SpO2: 98% HT: 152.4 cm WT: 102.5 kg BMI: 44.13 Vital Signs reviewed and noted. General: Alert, no acute distress, patient resting comfortably Skin: warm, intact, no pallor noted laceration describe low Head: Normocephalic, atraumatic Eye: Normal conjunctiva Cardiac: Normal peripheral perfusion Respiratory: No acute distress Musculoskeletal: Left index finger has a superficial laceration with no active bleeding noted on the radial surface of the DIP joint of the left index finger. Full range of motion all tendons are intact no bony tenderness. Neurological: alert and oriented, normal sensory and motor observed. Psychiatric: Cooperative Procedure Wound was cleansed using soap and water. No active bleeding at this time. Patient was treated with Dermabond and educated on wound care she tolerated this procedure well and is discharged home. Tetanus is updated here as well. Assessment/Plan Finger laceration (S61.219A: Laceration without foreign body of unspecified finger without damage to nail, initial encounter) Orders: tetanus/diphtheria/pe rtussis, acel (Tdap), 0.5 mL, Injection, Intramuscular-Immuniz ation, Once, Stop date 05/10/22 9:16:00 EDT, STAT, Start date 05/10/22 9:16:00 EDT Disposition Plan Discharge Prescription List Prescriptions No active prescription medications Follow-up With When Contact Information Jose Antonio Garza In 3 days [address] [place] [id number] Business (1) Additional Instructions: Problem List/Past Medical History Ongoing lymph node removal Historical HTN RA Procedure/Surgical History Lumpectomy w/ Lymph node removal left arm (2007), Appendectomy, Cholecystectomy, [facility] - Total abdominal hysterectomy and bilateral salpingo-oophorectomy . Medications Inpatient No active inpatient medications Home Enbrel, 50 mg, SubCutaneous, qWeek folic acid 1 mg Tab, 1 mg= 1 tab(s), Oral, Daily Lasix 20 mg Tab, 20 mg= 1 tab(s), Oral, Daily methotrexate, 15 mg, Oral, qWeek Naprosyn 500 mg Tab, 500 mg= 1 tab(s), Oral, BID, PRN Naprosyn 500 mg Tab, 500 mg= 1 tab(s), Oral, BID [place] [address] mg-5 mg oral tablet, 1 tab(s), Oral, q6hr, PRN Plaquenil, 200 mg, Oral, BID predniSONE 10 mg Tab, 1 -, Oral, As Directed Allergies Bactrim (Hives) Enbrel (Unknown) methotrexate (CHF) Social History Alcohol - Denies Alcohol Use, 03/16/2013 Substance Abuse - Denies Substance Abuse, 01/16/2011 Tobacco - Denies Tobacco Use, 05/29/2010 Never (less than 100 in lifetime) Tobacco Use:., 05/21/2021 Family History Diabetes mellitus type 2: Mother. Heart failure: Mother. Hypertension: Mother. Lab Results No qualifying data available. Diagnostic Results No qualifying data available. Normal [facility] Comment on above: Result Comment: Elec tronically Signed By: Mamadou Gonzalez DO\.br\Date and Time Signed: 05/10/22 09:31 EDT ED Patient Education Noteon 05-10-2022 ED Patient Education Note Normal [facility] ED Patient Summaryon 022 ED Patient Summary [address] [address] Patient Discharge Instructions Person Information Name: FELICITY PHILLIPS Age: 56 Years Arrival Date: 05/10/2022 09:03:11 Discharge Diagnosis: Finger laceration Primary Care Physician: Jose Antonio Garza MD Provider Information Primary Provider: Mamadou Gonzalez DO Advanced Tube Dispatcher:None The exam and treatment you received in the Emergency Department were for an urgent problem and are not intended as complete care. It is important that you follow up with a doctor, nurse practitioner, or physician?s team assistant for ongoing care. If your symptoms become worse or you do not improve as expected and you are unable to reach your usual health care provider, you should return to the Emergency Department. We are available 24 hours a day. FELICITY PHILLIPS has been given the following list of patient education materials, prescriptions and follow-up instructions: Follow-up Instructions: With: Address: When: Jose Antonio Fortejenifer [address] [place] [address], [place] [address] Business (1) In 3 days In the event that this physician does not participate in your insurance network, please consult with your insurance company to find a nearby participating provider. Patient Education Materials: A MESSAGE TO ALL PATIENTS REGARDING OPIOIDS PRESCRIPTION OPIOIDS: WHAT YOU NEED TO KNOW Prescription opioids can be used to help relieve qrvvjjpg-ad-jhhupx pain and are often prescribed following a surgery or injury, or for certain health conditions. These medications can be an important part of the treatment but also come with serious risks. It is important to work with your healthcare provider to make sure you are getting the safest, most effective care. WHAT ARE THE RISKS AND SIDE EFFECTS OF OPIOID USE? Prescription opioids carry serious risks of addiction and overdose, especially with prolonged use. An opioid overdose, often marked by slowed breathing, can cause sudden . The use of prescription opioids can have a number of side effects as well, even when taken as directed: ? Tolerance?meaning you might need to take more of the medication for the same pain relief ? Physical dependence?meaning you have symptoms of withdrawal when a medication is stopped ? Increased sensitivity to pain ? Constipation ? Nausea, vomiting, and dry mouth ? Sleepiness and dizziness ? Confusion ? Depression ? Low levels of testosterone that can result in lower sex drive, energy, and strength ? Itching and sweating RISKS ARE GREATER WITH: ? History of drug misuse, substance use disorder, or overdose ? Mental health conditions (such as depression or anxiety) ? Sleep apnea ? Older age (65 years and older) ? Avoid alcohol while taking prescription opioids. Also, unless specifically advised by your health care provider, medications to avoid include: ? Benzodiazepines (such as Xanax or Valium) ? Muscle relaxants (such as Soma or Flexeril) ? Hypnotics (such as Ambien or Lunesta) ? Other prescription opioids KNOW YOUR OPTIONS Talk to your health care provider about ways to manage your pain that don?t involve prescription opioids. Some of these options may actually work better and have fewer risks and side effects. Options may include: ? Pain relievers such as acetaminophen, ibuprofen, and naproxen ? Some medication that are also used for depression or seizures ? Physical therapy and exercise ? Cognitive behavioral therapy, a psychological, goal-directed approach, in which patients learn how to modify physical, behavioral, and emotional triggers of pain and stress. IF YOU ARE PRESCRIBED OPIOIDS FOR PAIN: ? Never take opioids in greater amounts or more often than prescribed. ? Follow up with your primary health care provider. o Work together to create a plan on how to manage your pain. o Talk about ways to help manage your pain that don?t involve prescription opioids. o Talk about any and all concerns and side effects. ? Help prevent misuse and abuse o Never sell or share prescription opioids. o Never use another person?s prescription opioids. ? Store prescription opioids in a secure place and out of reach of others (this may include visitors, children, friends, and family). ? Safely dispose of unused prescription opioids: Find your community drug take-back program or your pharmacy mail-back program, or flush them down the toilet, following guidance from the Food and Drug Administration (www.fda.gov/Drugs/Re sourcesForYou). ? Visit www.cdc.gov/drugoverd ose to learn about the risks of opioids abuse and overdose. ? If you believe you may be struggling with addiction, tell your health intensive care unit nurse and ask for guidance or call [facility]?S National Helpline at 2-502-694-HELP. v Source: US Department of Health and Human Services/[place] for (more content not included)... 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) Former smoker (V15.82) (Z87.891) QUIT 07/19 PPD SOB (shortness of breath) on exertion (786.05) (R06.02) Orders Hypertension Renew: Carvedilol 12.5 MG Oral Tablet; TAKE 1 TABLET TWICE DAILY Renew: Spironolactone 25 MG Oral Tablet; take 1 tablet by mouth once daily Hypertension, SOB (shortness of breath) on exertion Renew: Furosemide 40 MG Oral Tablet; take 1 tablet by mouth once daily Morbid obesity with BMI of 40.0-44.9, adult Healthy Weight Tips; Status:Complete - Retrospective Authorization; Done: 18Mar2022 Some eating tips that can help you lose weight.; Status:Complete - Retrospective Authorization; Done: 18Mar2022 Non-ischemic cardiomyopathy Renew: Entresto 49-51 MG Oral Tablet; TAKE 1 TABLET BY MOUTH TWICE A DAY SocHx: Former smoker Tobacco Use Screening; Status:Complete; Done: 18Mar2022 Tobacco Use Screening; Status:Complete; Done: 18Mar2022 Patient Instructions Please bring all medicines, vitamins, and herbal supplements with you when you come to the office. Prescriptions will not be filled unless you are compliant with your follow up appointments or have a follow up appointment scheduled as per instruction of your physician. Refills should be requested at the time of your visit. Follow up in 1 year With Amanuel Fonseca NP Chief Complaint FELICITY PHILLIPS is being seen for an annual follow-up of. 56-year-old female who returns for annual follow-up she is doing well. Last time I saw her was couple years ago she has been seeing nurse practitioner for the last 5 or 6 times. She remains on appropriate guideline directed medical therapies as reviewed She has a history of nonischemic cardiomyopathy with normal coronary arteries, obesity, hypertension and rheumatoid arthritis. Most recent MUGA scan revealed normal left ventricular function with ejection fraction 64% on current therapies. We have no recent laboratories she is otherwise stable we have counseled her on dietary discretion weight loss and exercise We will follow-up in 1 year with nurse practitioner Surgical History Problems History of Appendectomy History of Arterial stent placement History of Cholecystectomy History of Complete colonoscopy ONSET DATE [id number] JALEEL History of Foot surgery LEFT History of Hysterectomy Current Meds Medication NameInstruction Carvedilol 12.5 MG Oral TabletTAKE 1 TABLET TWICE DAILY. Entresto 49-51 MG Oral TabletTAKE 1 TABLET BY MOUTH TWICE A DAY Furosemide 40 MG Oral Tablettake 1 tablet by mouth once daily Hydroxychloroquine Sulfate 200 MG Oral TabletTAKE 1 TABLET DAILY. Leflunomide 20 MG Oral TabletTAKE 1 TABLET DAILY. Spironolactone 25 MG Oral Tablettake 1 tablet by mouth once daily Allergies Medication Bactrim DS TABS Hives;; Recorded By: Saray Gooden; 10/06/2021 1:31:03 PM sulfamethoxazole-trim ethoprim Allergy; Hives;; Recorded By: Marisol Arias; 06/24/2021 10:58:13 AM Enbrel Adverse Reaction; Updated By: Palma Heck; 10/08/2021 1:34:14 PM etanercept Allergy; Updated By: Palma Heck; 10/08/2021 1:34:14 PM methotrexate Allergy; Updated By: Palma Heck; 10/08/2021 1:34:14 PM Social History Problems Caffeine use (V49.89) (Z78.9) OCCASIONAL COFFEE Former smoker (V15.82) (Z87.891) QUIT 07/19 PPD No alcohol use No illicit drug use Review of Systems Constitutional: not feeling tired. Cardiovascular: no intermittent leg claudication and as noted in HPI. Respiratory: no cough and no shortness of breath. Gastrointestinal: no change in bowel habits and no blood in stools. Integumentary: no skin rashes. Neurological: no seizures and no frequent falls. All other systems have been reviewed and are negative for complaint. Vitals Vital Signs Recorded: 18Mar2022 08:56AM Heart Rate78, R Radial [id number], LUE, Sitting Fahjtacoi18, LUE, Sitting Height5 ft 1 in Pqncww155 lb 4 oz BMI Csseiwtfga83.69 kg/m2 BSA Calculated2.01 Tobacco Useb) No PHQ-2 #1. Over the last 2 weeks have you felt down, depressed or hopeless? (If yes, answer PHQ-9 below)No PHQ-2 #2. Over the last 2 weeks have you felt little interest or pleasure in doing things? (If yes, answer PHQ-9 below)No Physical Exam Constitutional: alert and in no acute distress. Neck: neck is supple, symmetric, trachea midline, no masses and no thyromegaly . Pulmonary: no increased work of breathing or signs of respiratory distress and lungs clear to auscultation. Cardiovascular: carotid pulses 2+ bilaterally with no bruit , JVP was normal, no thrills , regular rhythm, normal S1 and S2, no murmurs , pedal pulses 2+ bilaterally and no edema . Abdomen: abdomen non-tender, no masses and no hepatomegaly . Skin: skin warm and dry, normal skin turgor (more content not included)... Normal [employer] Tobacco Screening.on 022 Adult depression screening assessment No [facility] [employer] DO Work Phone: Tobacco use status [facility] b) No [facility] [employer] DO Work Phone: XR HIP LT INJon 03-01-2022 XR HIP LT INJ EXAMINATION: XR HIP LT INJ HISTORY: Pain of left hip joint COMPARISON: No relevant comparison available. FLUOROSCOPY TIME: Fluoro time measures 1.0 minutes and 5 images were obtained. TECHNIQUE: A joint injection was performed in the usual sterile manner after obtaining informed consent. Standard level fluoroscopic mode of operation utilized. FINDINGS: JOINT: Left hip. NEEDLE: 22 gauge, 3.5 spinal needle. MEDICATION: 2cc buffered 1% lidocaine for subcutaneous anesthesia 2cc Omnipaque-300 iodinated contrast to visualize the joint space Mixture of Kenalog 40 mg, 0.5% Bupivacaine 2 mL and Omnipaque 300 7mL was injected into the joint space. TECHNIQUE: Anterior approach with prior localization of the femoral artery. A single stick was successful in gaining access to the joint space. CLINICAL: No change in hip pain immediately following the injection (4/10 preinjection; 4/10 post injection). COMPLICATIONS: None. OTHER: Negative. IMPRESSION: 1. Technically successful therapeutic left hip injection. Electronically authenticated by: JOSÉ MIGUEL SERNA Date: 2022-03-01 09:02 Normal [facility] Body fluid albumin measureme nt (mass/volume)Ordered By: Kyle Calderon on 02-22-2022 Albumin (Body fld) [Mass/Vol] 3.6 g/dL 3.2-5.5 [facility] Direct bilirubin measurement Ordered By: Kyle Calderon on 02-22-2022 Bilirubin.direct [Mass/Vol] 0.1 mg/dL 0.0-0.4 [facility] Globulin Calc (S) [Mass/Vol] Ordered By: Kyle Calderon on 02-22-2022 Globulin (S) [Mass/Vol] 3.0 g/dL [facility] Protein [Mass/volume] in Ser um or PlasmaOrdered By: Kyle Calderon on 02-22-2022 Protein [Mass/Vol] 6.6 g/dL 6.1-7.9 [facility] Serum or plasma alanine gilbert otransferase measurement without P-5'-P (enzymatic activiOrdered By: Kyle Calderon on 02-22-2022 ALT No additional P-5'-P [Catalytic activity/Vol] 26 U/L 10-60 [facility] Serum or plasma albumin/glob ulin mass ratioOrdered By: Kyle Calderon on 02-22-2022 Albumin/Globulin [Mass ratio] 1.2 {ratio} [facility] Serum or plasma alkaline steven sphatase measurement (enzymatic activity/volume)Ordered By: Kyle Caldeorn on 02-22-2022 ALP [Catalytic activity/Vol] 74 U/L 32-92 [facility] Serum or plasma aspartate am inotransferase measurement (enzymatic activity/volume)Ordered By: Kyle Calderon on 02-22-2022 AST [Catalytic activity/Vol] 24 U/L 10-42 [facility] Serum or plasma non-glucuron idated bilirubin measurement (mass/volume)Ordered By: Kyle Calderon on 02-22-2022 Bilirubin.indirect [Mass/Vol] 0.1 mg/dL [facility] Serum or plasma total biliru bin measurement (mass/volume)Ordered By: Kyle Calderon on 02-22-2022 Bilirubin [Mass/Vol] 0.2 mg/dL 0.3-1.2 [facility] Basophils Auto (Bld) [#/Vol] Ordered By: Kyle Calderon on 02-10-2022 Basophils (Bld) [#/Vol] 0.1 10*3/uL 0.0-0.2 [facility] Basophils/100 WBC Auto (Bld) Ordered By: Kyle Calderon on 02-10-2022 Basophils/100 WBC (Bld) 0.6 % . [facility] Blood hemoglobin measurement (mass/volume)Ordered By: Kyle Calderon on 02-10-2022 Hemoglobin (Bld) [Mass/Vol] 11.9 g/dL 11.8-15.4 [facility] Blood leukocytes automated c ount (number/volume)Ordered By: Kyle Calderon on 02-10-2022 WBC (Bld) [#/Vol] 11.4 10*3/uL 4.5-11.0 [facility] Creatinine and Glomerular fi ltration rate.predicted panel (S/P/Bld)Ordered By: Kyle Calderon on 02-10-2022 Creatinine [Mass/Vol] 0.93 mg/dL 0.44-1.03 [facility] Eosinophils Auto (Bld) [#/Vo l]Ordered By: Kyle Calderon on 02-10-2022 Eosinophils (Bld) [#/Vol] 0.2 10*3/uL 0.0-0.45 [facility] Eosinophils/100 WBC Auto (Bl d)Ordered By: Kyle Calderon on 02-10-2022 Eosinophils/100 WBC (Bld) 1.8 % . [facility] Erythrocyte distribution wid th Auto (RBC) [Ratio]Ordered By: Kyle Calderon on 02-10-2022 Erythrocyte distribution width (RBC) [Ratio] 14.0 % 11.9-15.3 [facility] Erythrocyte sedimentation ra te by Photometric methodOrdered By: Kyle Calderon on 02-10-2022 ESR Photometric method (Bld) [Velocity] 30 mm/hr 0-29 [facility] Estimated glomerular filtrat ion rate (GFR) non- AmericanOrdered By: Kyle Calderon on 02-10-2022 GFR/1.73 sq M.predicted among non-blacks MDRD (S/P/Bld) [Vol rate/Area] > 60 mL/Min [facility] Hematocrit Auto (Bld) [Volum e fraction]Ordered By: Kyle Calderon on 02-10-2022 Hematocrit (Bld) [Volume fraction] 35.9 % 34.0-46.4 [facility] Hepatitis A virus Ab [Presen ce] in Serum by ImmunoassayOrdered By: Kyle Calderon on 02-10-2022 HAV Ab IA Ql (S) Negative Negative [facility] Comment on above: Performed at: [place] [id number] [employer]over: Thompson Osullivan PhD, Phone: [phone] Hepatitis B virus surface Ag [Presence] in Serum or Plasma by ImmunoassayOrdered By: Kyle Calderon on 02-10-2022 HBV surface Ag IA Ql Negative Negative [facility] - Hematology and Cell countsOrdered By: Kyle Calderon on 02-10-2022 Nucleated RBC/100 WBC (Bld) [Ratio] 0.1 % 0-0.5 [facility] Lymphocytes Auto (Bld) [#/Vo l]Ordered By: Kyle Calderon on 02-10-2022 Lymphocytes (Bld) [#/Vol] 1.5 10*3/uL 1.00-4.8 [facility] Lymphocytes/100 WBC Auto (Bl d)Ordered By: Kyle Calderon on 02-10-2022 Lymphocytes/100 WBC (Bld) 13.0 % . [facility] MCH Auto (RBC) [Entitic mass ]Ordered By: Kyle Calderon on 02-10-2022 MCH (RBC) [Entitic mass] 30.1 pg 24.7-34.3 [facility] MCHC Auto (RBC) [Mass/Vol]Or dered By: Kyle Calderon on 02-10-2022 MCHC (RBC) [Mass/Vol] 33.1 g/dL 32.0-35.0 [facility] MCV Auto (RBC) [Entitic vol] Ordered By: Kyle Calderon on 02-10-2022 MCV (RBC) [Entitic vol] 91.1 fL 80-100 [facility] Monocytes Auto (Bld) [#/Vol] Ordered By: Kyle Calderon on 02-10-2022 Monocytes (Bld) [#/Vol] 0.6 10*3/uL 0.0-0.8 [facility] Monocytes/100 WBC Auto (Bld) Ordered By: Kyle Calderon on 02-10-2022 Monocytes/100 WBC (Bld) 5.3 % . [facility] Neutrophils Auto (Bld) [#/Vo l]Ordered By: Kyle Calderon on 02-10-2022 Neutrophils (Bld) [#/Vol] 9.0 10*3/uL 1.8-7.7 [facility] Neutrophils/100 WBC Auto (Bl d)Ordered By: Kyle Calderon on 02-10-2022 Neutrophils/100 WBC (Bld) 79.3 % . [facility] No Panel InformationOrdered By: Kyle Calderon on 02-10-2022 Estimated GFR () > 60 mL/Min [facility] Comment on above: GFR estimated refere nce range: According to KDOQI guidelines, <60 ml/min/1.73m2 is sufficient to diagnose a patient with chronic kidney disease. Hepatitis B Core Total Antibody Negative Negative [facility] Hepatitis C Interpretation See comment . [facility] Comment on above: Negative Not infected with HCV, unless recent infection is suspected or other evidence exists to indicate HCV infection. Hepatitis C RNA Quantitative N/A [facility] Creatinine Clearance (Chem N/A [facility] Platelet mean volume Auto (B ld) [Entitic vol]Ordered By: Kyle Calderon on 02-10-2022 Platelet mean volume (Bld) [Entitic vol] 8.2 fL 6.3-10.7 [facility] Platelets Auto (Bld) [#/Vol] Ordered By: Kyle Calderon on 02-10-2022 Platelets (Bld) [#/Vol] 272 10*3/uL 150-450 [facility] RBC Auto (Bld) [#/Vol]Ordere d By: Kyle Calderon on 02-10-2022 RBC (Bld) [#/Vol] 3.95 10*6/uL 3.60-5.00 [facility] Serum hepatitis B virus surf lakes[place]ia antibody detectionOrdered By: Kyle Calderon on 02-10-2022 HBV surface Ab Ql (S) Non-Reactive . [facility] Comment on above: Non Reactive: Incons istent with immunity, less than 10 mIU/mL Reactive: Consistent with immunity, greater than 9.9 mIU/mL Serum or plasma hepatitis C virus antibody signal/cutoff ratio by immunoassay (relatiOrdered By: Kyle Calderon on 02-10-2022 HCV Ab Signal/Cutoff IA [Rel units/Vol] 0.1 s/co ratio 0.0-0.9 [facility] MUGA SCAN INJECTIONon [facility] MUGA SCAN INJECTION Patient Name: FELICITY PHILLIPS STUDY: MUGA Performing facility: [facility], [address] [place] [address], [address] Provider: Amanuel Valladares RN, CEMENT FINISHER PCP: Dr. Lorenzo Garza Supervising provider: Yanet Sommer MD INDICATION: SOB; Non-ischemic cardiomyopathy HISTORY: Gender: F; Age: 55 y/o ; Height: 154.94 cm; Weight: 661.9312298 kg. HTN; SOB; Quit smoking unknown years ago. Cardiac catheterization on 2016. COMPARISON: Previous nuclear testing completed [id number] at [facility]. Previous echo testing completed [id number] at [facility]. ACCESSION NUMBER(S): [id number]; [id number] ORDERING CLINICIAN: AMANUEL VALLADARES TECHNIQUE: The patient received an IV injection of 3 ml of stannous pyrophosphate (PYP) using the in-vivo method of labeling red blood cells. After 15 minutes the patient received another IV injection of 27.0 mCi of Technetium 99m pertechnetate. Planar images of the left ventricle were obtained in the OCCITAN 45, Lt Lateral and anterior projections. FINDINGS: The right ventricle was normal. The left ventricle was normal in size. Regional wall motion was normal. Global resting LVEF was normal- at 64%. IMPRESSION: Normal resting right ventricular function. Normalresting left ventricular function. Left ventricular ejection fraction is 64%. When compare to prior study LVF has improved from 44% up to 64% Electronically signed by: YANET SOMMER MD Normal [facility] Echocardiogramon 09-04-[address], [address] [address] TRANSTHORACIC ECHOCARDIOGRAM REPORT Patient Name: FELICITY PHILLIPS Reading Physician: [id number] Jose Carlos Hernandez DO Study Date: 09/04/2020 Referring Physician: [id number] VALLADARES MRN/PID: [id number] PCP: Jose Antonio Garza Accession/Order#: [id number] Department Location: [facility] Date of : 1965 Fellow: Gender: F Nurse: Nyasia Cain RN Admit Date: [employer]able [employer] Trader: Judy Rocha RDCS, RVT Height: 154.94 cm CC Report to: Weight: 104.78 kg Study Type: Echocardiogram BSA: 2.01 m2 Blood Pressure: 128 /68 mmHg Diagnosis/ICD: I42.8-Other cardiomyopathies; R06.02-Shortness of breath Indication: HTN, CHARBEL, Former Smoker, Morbid Obesity Procedure/CPT: Echo Complete w Full [id number] Study Detail: The following Echo studies were performed: 2D, M-Mode, Doppler and color flow. Optison used as a contrast agent for endocardial border definition. Total contrast used for this procedure was 0.7 mL via IV push. PHYSICIAN INTERPRETATION: Left Ventricle: The left ventricular systolic function is moderately decreased, with an estimated ejection fraction of 30-35%. There are no regional wall motion abnormalities. The left ventricular cavity size is mildly dilated. There is no evidence of left ventricular hypertrophy. Spectral Doppler shows an impaired relaxation pattern of left ventricular diastolic filling. There is no definite left ventricular thrombus visualized. Moderate to svere global hypokinesis. Left Atrium: The left atrium is mildly dilated. Right Ventricle: The right ventricle is mildly enlarged. There is moderately reduced right ventricular systolic function. Right Atrium: The right atrium is upper limits of normal in size. Aortic Valve: The aortic valve appears structurally normal. There is mild aortic valve thickening. There is evidence of mildly elevated transaortic gradients consistent with sclerosis of the aortic valve. There is no evidence of aortic valve regurgitation. The peak instantaneous gradient of the aortic valve is 8.0 mmHg. The mean gradient of the aortic valve is 4.0 mmHg. Mitral Valve: The mitral valve is normal in structure. There is trace to mild mitral valve regurgitation. Tricuspid Valve: The tricuspid valve is structurally normal. There is mild tricuspid regurgitation. Pulmonic Valve: The pulmonic valve is structurally normal. There is trace pulmonic valve regurgitation. Pericardium: There is no pericardial effusion noted. Aorta: The aortic root was not well visualized. Systemic Veins: The inferior vena cava was not well visualized. CONCLUSIONS: 1. The left ventricular systolic function is moderately decreased with a 30-35% estimated ejection fraction. 2. No left ventricular thrombus visualized. 3. Spectral Doppler shows an impaired relaxation pattern of left ventricular diastolic filling. 4. There is no evidence of left ventricular hypertrophy. 5. There is moderately reduced right ventricular systolic function. 6. Aortic valve sclerosis. 7. Compared to echo of 03/24/17, there mat be mild further decline in lvef. QUANTITATIVE DATA SUMMARY: 2D MEASUREMENTS: Normal Ranges: Ao Root d: 2.40 cm (2.0-3.7cm) LAs: 3.70 cm (2.7-4.0cm) RVIDd: 2.40 cm (0.9-3.6cm) IVSd: 1.10 cm (0.6-1.1cm) LVPWd: 1.00 cm (0.6-1.1cm) LVIDd: 5.80 cm (3.9-5.9cm) LVIDs: 4.20 cm LV Mass Index: 123.7 g/m2 LV % FS 27.6 % LV SYSTOLIC FUNCTION BY 2D PLANIMETRY (MOD): Normal Ranges: EF-A4C View: 30.1 % (>55%) LV DIASTOLIC FUNCTION: Normal Ranges: MV Peak E: 1.09 m/s (0.7-1.2 m/s) MV Peak A: 0.50 m/s (0.42-0.7 m/s) E/A Ratio: 2.18 (1.0-2.2) MV lateral e' 0.09 m/s MV medial e' 0.06 m/s E/e' Ratio: 11.80 (<8.0) MITRAL VALVE: Normal Ranges: MV Vmax: 1.31 m/s (<1.3m/s) MV peak P.9 mmHg (<5mmHg) MV mean P.0 mmHg (<48mmHg) MITRAL INSUFFICIENCY: Normal Ranges: MR Vmax: 418.50 cm/s dP/dt: 826 mmHg/s (>1200mmHg/sec) AORTIC VALVE: Normal Ranges: AoV Vmax: 1.41 m/s (<1.7m/s) AoV Peak P.0 mmHg (<20mmHg) AoV Mean P.0 mmHg (1.7-11.5mmHg) LVOT Max Demetrio: 0.87 m/s (<1.1m/s) AoV VTI: 33.70 cm (18-25cm) LVOT VTI: 21.30 cm LVOT Diameter: 1.90 cm (1.8-2.4cm) AoV Area, VTI: 1.79 cm2 (2.5-5.5cm2) AoV Area,Vmax: 1.75 cm2 (2.5-4.5cm2) AoV Dimensionless Index: 0.63 PULMONIC VALVE: Normal Ranges: PV Max Demetrio: 0.8 m/s (0.6-0.9m/s) PV Max P.5 mmHg PIEDV: 1.78 m/s PADP: 15.7 mmHg [id number] Jose Carlos Hernandez DO Electronically signed on 09/04/2020 at 4:00:[address] [facility] OBSOLETEon 08-02-2018 OBSOLETE Refill (CARDMM) FELICITY PHILLIPS ([id number]) 1965 F Date Time Provider Department 08/02/18 CEASAR CUNHA During your visit today, we recorded the following information about you: Maye Vora 08/02/2018 9:23 AM Signed Pharmacy verified in [facility] Patient has been identified by name and date of : Yes Prescription must be called to the pharmacy (non-escript). [facility] phone [phone]. Please call patient after medication has been called in. Patient phones for refill(s): Pending Prescriptions Disp Refills SPIRONOLACTONE 25 MG TABLET 3 JOANN: No LISINOPRIL 5 MG TABLET 30 tablet 11 Sig: Take 1 tablet by mouth once daily. JOANN: No CARVEDILOL 6.25 MG TABLET 3 JOANN: No Date of last office visit : Visit date not found Date of next office visit : 12/04/2018 Last 2 Encounter Wt Readings: Date: Wt: 05/30/2018 105.1 kg (231 lb 9.6 oz) 01/30/2018 102.1 kg (225 lb) Not applicable Please advise. Maye Vora Brandie Amaral APRN.CEMENT FINISHER 08/03/2018 9:25 AM Signed We have no labs on file for this patient. I see that her PCP is outside the clinic. Please find out when the last time she had BMP (given she's on aldactone and lisinopril I need to know potassium and kidney function before I can prescribe this). I'd like to know before I send the refill. If she needs the refill immediately I can send a short course until we get a copy of the labs. Thanks, Brandie Amaral APRN.CEMENT FINISHER Allergies As of Date: 08/02/2018 Noted Allergy Reaction SULFAMETHOXAZOLE-TRIM ETHOPRIM 12/21/2016 4 - Hives Date Reviewed: 05/30/2018 Reviewed by: Ceasar Cunha - Fully Assessed Reason for Visit: Refill Request [94] Visit Diagnosis:Left ventricular diastolic dysfunction [I51.9] Prescriptions as of 08/02/2018 Sig: FUROSEMIDE 20 MG TABLET Take 1 tablet by mouth once d* SPIRONOLACTONE 25 MG TABLET TK 1 T PO ONCE DAILY CARVEDILOL 6.25 MG TABLET TK 1 T PO BID LEFLUNOMIDE 20 MG TABLET TK 1 T PO QD. MUST GET STANDI* HYDROXYCHLOROQUINE 200 MG TAB* Take by mouth once daily. LISINOPRIL 5 MG TABLET Take 1 tablet by mouth once d* Problem List As Of Date 08/02/2018 Noted Resolved Obesity, Class III, BMI >= 40 (morbid obesity) *INVALID FOR* Essential hypertension [I10] INVALID FOR* Left ventricular diastolic dysfunction [I51.9] INVALID FOR* Abnormal ECG [R94.31] INVALID FOR* Chronic combined systolic and diastolic heart f*INVALID FOR* Encounter Status:Closed by BRANDIE AMARAL CNP on 08/03/18 [facility] CNOVon 05-30-2018 CNOV Office Visit (CARDFT ) FELICITY PHILLIPS ([id number]) 1965 F Date Time Provider Department 05/30/18 9:30 AM CEASAR CUNHA During your visit today, we recorded the following information about you: Pulse Blood pressure Weight Height 82/minute 142/80 105.1 kg 1.524 m Ceasar Cunha MD 05/30/2018 9:42 AM [facility] [place] Natal[facility] Rodriguez Department of Cardiovascular Medicine OUTPATIENT VISIT DATE 05/30/18 OUTPATIENT VISIT TYPE ESTABLISHED PRIMARY CARE PHYSICIAN: Jose Antonio Garza MD [address] [place] [phone] CHIEF COMPLAINT: Patient presents with: Follow Up HISTORY OF PRESENT ILLNESS: Felicity Phillips is a 51 year old female with a past medical history of essential hypertension, grade 2 diastolic dysfunction by recent echocardiogram and rheumatoid arthritis. 12/21/2016 The patient presents today for a follow-up after her hospitalization. During her hospitalization she was treated for fluid overload. Her brain natruretic peptide was not elevated. Her echocardiogram revealed evidence of grade 2 diastolic dysfunction. The patient also had recently restarted her rheumatoid arthritis medication Enbrel. Symptoms of heart failure and fluid overload are a known side effect of that medication in some patients. The patient was diuresed and discharged home. This is her follow-up visit. The patient continues to have dyspnea and dyspnea on exertion. She states that it may be slightly better than when she first presented to the hospital but it is still present. He has been off her Enbrel and methotrexate for approximately one week. She still has occasional chest discomfort but not like that episode that happened prior to her hospitalization. The discomfort is described as a heaviness or a tightness. She is on her feet all day at work. She walks back and forth on a concrete floor for 8 hours a day. This contributes to some swelling in her ankles. It is worse by the end of the day and better in the morning. 01/21/2017 The patient presents today for a follow-up regarding her stress test results. Her stress test was performed on December 27, 2016. The stress test revealed global hypokinesis with an ejection fraction of 36%. There was no evidence of stress induced ischemia. The patient did not have any chest discomfort with a Lexiscan protocol. The ejection fraction on a recent echocardiogram on 12/07/2016 was 55% with no segmental wall motion abnormalities noted. There was evidence of grade 2 diastolic dysfunction on the echocardiogram. These are obviously discrepant results. The patient states that she feels better. Her shortness of breath is less noticeable. She does have an upper respiratory cold currently. She denies any further chest discomfort. She denies any lower extremity swelling. 07/28/2017 The patient presents today for her 6 month follow-up visit. Apparently she had a hospitalization at [facility] which led to transfer to [facility]. She had a cardiac catheterization performed which was reportedly without severe stenoses. Her medications were adjusted with the addition of carvedilol and spironolactone. Unfortunately I have no records to review at this time. None of the reports were forwarded to me. The patient cannot recall why she was sent to the emergency room from her primary care physician's office in January 2017. While I am doing this note I just received the records. The patient apparently was complaining of increased dyspnea on exertion and had an abnormal EKG. There were new ST and T-wave changes. The patient was sent to [place] emergency room where she was evaluated and eventually transferred to [facility] where she underwent a cardiac catheterization which revealed no evidence of coronary artery disease. The left ventricular ejection fraction was estimated at 40% by left ventriculogram. A 2-D echocardiogram was performed showing a left ventricular ejection fraction of 45%. The patient was given prescriptions for carvedilol and spironolactone. She then does not recall if she followed up with anyone after that hospitalization. Currently she feels fine and has no chest discomfort or shortness of breath. She denies any palpitations, syncopal or near syncopal episodes. She denies any edema, orthopnea or paroxysmal nocturnal dyspnea. 01/30/2018 The patient presents today for a 6 month follow-up visit. She is feeling well with less swelling than last visit. Had a couple of chest pain episodes following her son's sudden in July but no recurrence since then. She has been compliant with medications and feels fairly well. 05/30/2018 The patient presents today for a 4 month office visit. She has done very well over the past 4 months. She denies any chest discomfort, unusual shortness of breath or dyspnea on exertion. She denies any palpitations, syncopal or near syncopal episodes. She denies any change in edema, orthopnea or paroxysmal nocturnal dyspnea. She has been compliant with all of her medications. There have been no changes to her therapy. Her weight has been stable. PAST MEDICAL HISTORY Diagnosis Date - Chronic pulmonary edema - HTN (hypertension) - CHARBEL on CPAP - RA (rheumatoid arthritis) (HCC) PAST SURGICAL HISTORY Procedure Laterality Date - APPENDECTOMY - BREAST LUMPECTOMY HX - CHOLECYSTECTOMY - FOOT SURGERY HX Left - HYSTERECTOMY HX Social History Substance Use Topics - Smoking status: Never Smoker - Smokeless tobacco: Never Used - Alcohol use Yes FAMILY HISTORY Problem Relation Age of Onset - Hypertension Mother - Heart Failure Mother - Diabetes Mother ALLERGIES: ALLERGIES Allergen Reactions - Sulfamethoxazole-Tr* Hives MEDICATIONS: furosemide (LASIX) 20 mg tablet Take 1 tablet by mouth once daily. spironolactone (ALDACTONE) 25 mg tablet TK 1 T PO ONCE DAILY carvedilol (COREG) 6.25 mg tablet TK 1 T PO BID leflunomide (ARAVA) 20 mg tablet TK 1 T PO QD. MUST GET STANDING LABS hydroxychloroquine (PLAQUENIL) 200 mg tablet Take by mouth once daily. lisinopril (ZESTRIL, PRINIVIL) 5 mg tablet Take 1 tablet by mouth once daily. REVIEW OF SYSTEMS: GENERAL: Negative for: Fever, fatigue. CARDIAC: See HPI above. HEENT: Negative for: Ringing in Ears, nosebleeds, bleeding gums. NECK: Negative for: Pain, stiffness RESPIRATORY: Negative for: Blood in sputum, wheezing.Positive for dyspnea and dyspnea on exertion. GASTROINTESTINAL: Negative for: Trouble swallowing, blood in stool MUSCULOSKELETAL: Positive for: Joint stiffness and pain NEUROLOGIC: Negative for: Numbness, tremors PSYCHIATRIC: Negative for: Anxiety, depression SKIN: Negative for: Rashes, itching HEMATOLOGICAL/LYMPHAT IC: Negative for: Easy bruising, easy bleeding, painful lymph nodes I personally interviewed, confirmed and edited the above information if obtained by others. PHYSICAL EXAMINATION: BP 142/80 (BP Site: Right Arm, BP Cuff Size: Large Adult) Pulse 82 Ht 152.4 cm (5') Wt 105.1 kg (231 lb 9.6 oz) SpO2 99% BMI 45.23 kg/m? General: Well appearing, in no acute distress. Eyes: Conjunctiva normal, sclera normal Neck: No jugular venous distention, no palpable thyromegaly. Heart: Regular rhythm, S1, S2 normal, no S3, no S4. No murmur. No carotid bruits. Respiratory: Clear to auscultation bilaterally. Good respiratory effort. GI: Soft, nontender, bowel sounds normal, no palpable hepatosplenomegaly Extremities: Normal pulses in distal lower extremities. Trace bilateral lower extremity edema. Neuro: Alert, cooperative with no focal deficit. Psych: Pleasant and cooperative. Skin: No rashes or wounds. CARDIOVASCULAR MEDICINE TESTING: Electrocardiogram: 12/21/16 reveals normal sinus rhythm at 68 bpm. There is minimal voltage for left ventricular hypertrophy. There are nonspecific T-wave changes. The QT corrected was 463. Echocardiogram: The echocardiogram performed on 12/06/2016 revealed mild septal hypertrophy with no outflow tract obstruction. The left ventricular ejection fraction was estimated at 55%. There was evidence of grade 2 diastolic dysfunction. There was mild mitral regurgitation present. There was no other significant valvular disease identified. The right ventricular systolic pressure could not be estimated on this study. A Lexiscan nuclear stress evaluation on 12/28/2016 revealed no evidence of stress-induced ischemia. The left ventricular ejection fraction was moderately diminished at 36%. There was global hypokinesis noted. This does not match the patient's results from her echocardiogram noted above. Cardiac catheterization at [facility] in January 2017 revealed normal coronary arteries and a mild to moderate reduction in left ventricular ejection fraction at 40%. The LVEDP was elevated at 20-25 mmHg. A 2-D echocardiogram performed at [facility] in January 2017 revealed a left ventricular ejection fraction of 45%. IMPRESSION: 1. Chronic combined systolic and diastolic heart failure (HCC) - ICD9: 428.42, ICD10: I50.42 (primary diagnosis), new evidence in January 2017 of a mildly reduced left ventricular ejection fraction of 40-45% varying by way of evaluation, cardiac catheter LVEF 40%, echocardiogram LVEF 45%, carvedilol and spironolactone were added in January 2017. The patient has no new cardiac symptoms. Doing well currently. No difficulties with her medications. 2. Essential hypertension - ICD9: 401.9, ICD10: I10, controlled on current medical regimen. 3. Left ventricular diastolic dysfunction - ICD9: 429.9, ICD10: I51.9 4. Abnormal ECG - ICD9: 794.31, ICD10: R94.31, LVH, nonspecific T-wave changes previously. 5. Obesity, Class III, BMI >= 40 (morbid obesity) E66.01 - ICD9: 278.01, ICD10: E66.01 PLAN: Continue current medical regimen. Low-sodium diet. Weight loss. Regular aerobic exercise as able. Follow-up with me in 6 months or sooner if necessary. A copy of this note will be provided to the requesting provider by way of shared medical record or via U.S. Mail. This document was generated utilizing [employer] dictation. I have reviewed and verified that the contents of the document are accurate with the exception of minor grammatical, spelling and punctuation errors. CONTACT INFORMATION: Thank you for allowing us to participate in the care of this very pleasant patient. Please free to contact us if we can be of any further assistance. Ceasar Cunha MD, [facility] Natal[facility] Department of Cardiovascular Medicine Heart [facility] [place] [facility] [address] [place], [place] [address] Office: [phone] Referring Provider: JOSE ANTONIO GARZA [[id number]] Allergies As of Date: 05/30/2018 Noted Allergy Reaction SULFAMETHOXAZOLE-TRIM ETHOPRIM 12/21/2016 4 - Hives Date Reviewed: 05/30/2018 Reviewed by: Ceasar Cunha - Fully Assessed Reason for Visit: Follow Up [171] Primary Visit Diagnosis:Chronic combined systolic and diastolic heart failure (HCC) [I50.42] Other Visit Diagnoses:Left ventricular diastolic dysfunction [I51.9] Abnormal ECG [R94.31] Essential hypertension [I10] Prescriptions as of 05/30/2018 Sig: FUROSEMIDE 20 MG TABLET Take 1 tablet by mouth once d* SPIRONOLACTONE 25 MG TABLET TK 1 T PO ONCE DAILY CARVEDILOL 6.25 MG TABLET TK 1 T PO BID LEFLUNOMIDE 20 MG TABLET TK 1 T PO QD. MUST GET STANDI* HYDROXYCHLOROQUINE 200 MG TAB* Take by mouth once daily. LISINOPRIL 5 MG TABLET Take 1 tablet by mouth once d* Problem List As Of Date 05/30/2018 Noted Resolved Obesity, Class III, BMI >= 40 (morbid obesity) *INVALID FOR* Essential hypertension [I10] INVALID FOR* Left ventricular diastolic dysfunction [I51.9] INVALID FOR* Abnormal ECG [R94.31] INVALID FOR* Chronic combined systolic and diastolic heart f*INVALID FOR* Encounter Status:Closed by JENNY CUNHA MD on 05/30/18 [facility] PROGRESSon 05-30-2018 Protein mass conc HNO ID: [id number] Author: Ceasar Cuhna Service: (none) Author Type: Physician Type: Progress Notes Filed: 05/30/2018 9:42 AM Note Text: [facility] [place] [facility] Department of Cardiovascular Medicine OUTPATIENT VISIT DATE 05/30/18 OUTPATIENT VISIT TYPE ESTABLISHED PRIMARY CARE PHYSICIAN: Jose Antonio Garza MD [address] [place] [phone] CHIEF COMPLAINT: Patient presents with: Follow Up HISTORY OF PRESENT ILLNESS: Felicity Phillips is a 51 year old female with a past medical history of essential hypertension, grade 2 diastolic dysfunction by recent echocardiogram and rheumatoid arthritis. 12/21/2016 The patient presents today for a follow-up after her hospitalization. During her hospitalization she was treated for fluid overload. Her brain natruretic peptide was not elevated. Her echocardiogram revealed evidence of grade 2 diastolic dysfunction. The patient also had recently restarted her rheumatoid arthritis medication Enbrel. Symptoms of heart failure and fluid overload are a known side effect of that medication in some patients. The patient was diuresed and discharged home. This is her follow-up visit. The patient continues to have dyspnea and dyspnea on exertion. She states that it may be slightly better than when she first presented to the hospital but it is still present. He has been off her Enbrel and methotrexate for approximately one week. She still has occasional chest discomfort but not like that episode that happened prior to her hospitalization. The discomfort is described as a heaviness or a tightness. She is on her feet all day at work. She walks back and forth on a concrete floor for 8 hours a day. This contributes to some swelling in her ankles. It is worse by the end of the day and better in the morning. 01/21/2017 The patient presents today for a follow-up regarding her stress test results. Her stress test was performed on December 27, 2016. The stress test revealed global hypokinesis with an ejection fraction of 36%. There was no evidence of stress induced ischemia. The patient did not have any chest discomfort with a Lexiscan protocol. The ejection fraction on a recent echocardiogram on 12/07/2016 was 55% with no segmental wall motion abnormalities noted. There was evidence of grade 2 diastolic dysfunction on the echocardiogram. These are obviously discrepant results. The patient states that she feels better. Her shortness of breath is less noticeable. She does have an upper respiratory cold currently. She denies any further chest discomfort. She denies any lower extremity swelling. 07/28/2017 The patient presents today for her 6 month follow-up visit. Apparently she had a hospitalization at [facility] which led to transfer to [facility]. She had a cardiac catheterization performed which was reportedly without severe stenoses. Her medications were adjusted with the addition of carvedilol and spironolactone. Unfortunately I have no records to review at this time. None of the reports were forwarded to me. The patient cannot recall why she was sent to the emergency room from her primary care physician's office in January 2017. While I am doing this note I just received the records. The patient apparently was complaining of increased dyspnea on exertion and had an abnormal EKG. There were new ST and T-wave changes. The patient was sent to [facility] emergency room where she was evaluated and eventually transferred to [facility] where she underwent a cardiac catheterization which revealed no evidence of coronary artery disease. The left ventricular ejection fraction was estimated at 40% by left ventriculogram. A 2-D echocardiogram was performed showing a left ventricular ejection fraction of 45%. The patient was given prescriptions for carvedilol and spironolactone. She then does not recall if she followed up with anyone after that hospitalization. Currently she feels fine and has no chest discomfort or shortness of breath. She denies any palpitations, syncopal or near syncopal episodes. She denies any edema, orthopnea or paroxysmal nocturnal dyspnea. 01/30/2018 The patient presents today for a 6 month follow-up visit. She is feeling well with less swelling than last visit. Had a couple of chest pain episodes following her son's sudden in July but no recurrence since then. She has been compliant with medications and feels fairly well. 05/30/2018 The patient presents today for a 4 month office visit. She has done very well over the past 4 months. She denies any chest discomfort, unusual shortness of breath or dyspnea on exertion. She denies any palpitations, syncopal or near syncopal episodes. She denies any change in edema, orthopnea or paroxysmal nocturnal dyspnea. She has been compliant with all of her medications. There have been no changes to her therapy. Her weight has been stable. PAST MEDICAL HISTORY Diagnosis Date - Chronic pulmonary edema - HTN (hypertension) - CHARBEL on CPAP - RA (rheumatoid arthritis) (HCC) PAST SURGICAL HISTORY Procedure Laterality Date - APPENDECTOMY - BREAST LUMPECTOMY HX - CHOLECYSTECTOMY - FOOT SURGERY HX Left - HYSTERECTOMY HX Social History Substance Use Topics - Smoking status: Never Smoker - Smokeless tobacco: Never Used - Alcohol use Yes FAMILY HISTORY Problem Relation Age of Onset - Hypertension Mother - Heart Failure Mother - Diabetes Mother ALLERGIES: ALLERGIES Allergen Reactions - Sulfamethoxazole-Tr* Hives MEDICATIONS: furosemide (LASIX) 20 mg tablet Take 1 tablet by mouth once daily. spironolactone (ALDACTONE) 25 mg tablet TK 1 T PO ONCE DAILY carvedilol (COREG) 6.25 mg tablet TK 1 T PO BID leflunomide (ARAVA) 20 mg tablet TK 1 T PO QD. MUST GET STANDING LABS hydroxychloroquine (PLAQUENIL) 200 mg tablet Take by mouth once daily. lisinopril (ZESTRIL, PRINIVIL) 5 mg tablet Take 1 tablet by mouth once daily. REVIEW OF SYSTEMS: GENERAL: Negative for: Fever, fatigue. CARDIAC: See HPI above. HEENT: Negative for: Ringing in Ears, nosebleeds, bleeding gums. NECK: Negative for: Pain, stiffness RESPIRATORY: Negative for: Blood in sputum, wheezing.Positive for dyspnea and dyspnea on exertion. GASTROINTESTINAL: Negative for: Trouble swallowing, blood in stool MUSCULOSKELETAL: Positive for: Joint stiffness and pain NEUROLOGIC: Negative for: Numbness, tremors PSYCHIATRIC: Negative for: Anxiety, depression SKIN: Negative for: Rashes, itching HEMATOLOGICAL/LYMPHAT IC: Negative for: Easy bruising, easy bleeding, painful lymph nodes I personally interviewed, confirmed and edited the above information if obtained by others. PHYSICAL EXAMINATION: BP 142/80 (BP Site: Right Arm, BP Cuff Size: Large Adult) Pulse 82 Ht 152.4 cm (5') Wt 105.1 kg (231 lb 9.6 oz) SpO2 99% BMI 45.23 kg/m? General: Well appearing, in no acute distress. Eyes: Conjunctiva normal, sclera normal Neck: No jugular venous distention, no palpable thyromegaly. Heart: Regular rhythm, S1, S2 normal, no S3, no S4. No murmur. No carotid bruits. Respiratory: Clear to auscultation bilaterally. Good respiratory effort. GI: Soft, nontender, bowel sounds normal, no palpable hepatosplenomegaly Extremities: Normal pulses in distal lower extremities. Trace bilateral lower extremity edema. Neuro: Alert, cooperative with no focal deficit. Psych: Pleasant and cooperative. Skin: No rashes or wounds. CARDIOVASCULAR MEDICINE TESTING: Electrocardiogram: 12/21/16 reveals normal sinus rhythm at 68 bpm. There is minimal voltage for left ventricular hypertrophy. There are nonspecific T-wave changes. The QT corrected was 463. Echocardiogram: The echocardiogram performed on 12/06/2016 revealed mild septal hypertrophy with no outflow tract obstruction. The left ventricular ejection fraction was estimated at 55%. There was evidence of grade 2 diastolic dysfunction. There was mild mitral regurgitation present. There was no other significant valvular disease identified. The right ventricular systolic pressure could not be estimated on this study. A Lexiscan nuclear stress evaluation on 12/28/2016 revealed no evidence of stress-induced ischemia. The left ventricular ejection fraction was moderately diminished at 36%. There was global hypokinesis noted. This does not match the patient's results from her echocardiogram noted above. Cardiac catheterization at [facility] in January 2017 revealed normal coronary arteries and a mild to moderate reduction in left ventricular ejection fraction at 40%. The LVEDP was elevated at 20-25 mmHg. A 2-D echocardiogram performed at [facility] in January 2017 revealed a left ventricular ejection fraction of 45%. IMPRESSION: 1. Chronic combined systolic and diastolic heart failure (HCC) - ICD9: 428.42, ICD10: I50.42 (primary diagnosis), new evidence in January 2017 of a mildly reduced left ventricular ejection fraction of 40-45% varying by way of evaluation, cardiac catheter LVEF 40%, echocardiogram LVEF 45%, carvedilol and spironolactone were added in January 2017. The patient has no new cardiac symptoms. Doing well currently. No difficulties with her medications. 2. Essential hypertension - ICD9: 401.9, ICD10: I10, controlled on current medical regimen. 3. Left ventricular diastolic dysfunction - ICD9: 429.9, ICD10: I51.9 4. Abnormal ECG - ICD9: 794.31, ICD10: R94.31, LVH, nonspecific T-wave changes previously. 5. Obesity, Class III, BMI >= 40 (morbid obesity) E66.01 - ICD9: 278.01, ICD10: E66.01 PLAN: Continue current medical regimen. Low-sodium diet. Weight loss. Regular aerobic exercise as able. Follow-up with me in 6 months or sooner if necessary. A copy of this note will be provided to the requesting provider by way of shared medical record or via U.S. Mail. This document was generated utilizing [employer]. I have reviewed and verified that the contents of the document are accurate with the exception of minor grammatical, spelling and punctuation errors. CONTACT INFORMATION: Thank you for allowing us to participate in the care of this very pleasant patient. Please free to contact us if we can be of any further assistance. Ceasar Cunha MD, [facility] and Danna Rodriguez Department of Cardiovascular Medicine Heart and Vascular [place] [facility] [address] [place], [place] [address] Office: [phone] [facility] CNOVon 01-30-2018 CNOV Office Visit (CARDALEX ) FELICITY PHILLIPS ([id number]) 1965 F Date Time Provider Department 01/30/18 10:30 AM CEASAR CUNHA During your visit today, we recorded the following information about you: Pulse Respiration Blood pressure Weight 69/minute 16/minute 133/74 102.1 kg Ceasar Cunha MD 01/30/2018 11:03 AM [facility] V[facility] [place] Nataly Rodriguez Department of Cardiovascular Medicine OUTPATIENT VISIT DATE 01/30/18 OUTPATIENT VISIT TYPE ESTABLISHED PRIMARY CARE PHYSICIAN: Jose Antonio Garza MD [address] [place] [phone] CHIEF COMPLAINT: Patient presents with: Follow Up HISTORY OF PRESENT ILLNESS: Felicity Phillips is a 51 year old female with a past medical history of essential hypertension, grade 2 diastolic dysfunction by recent echocardiogram and rheumatoid arthritis. 12/21/2016 The patient presents today for a follow-up after her hospitalization. During her hospitalization she was treated for fluid overload. Her brain natruretic peptide was not elevated. Her echocardiogram revealed evidence of grade 2 diastolic dysfunction. The patient also had recently restarted her rheumatoid arthritis medication Enbrel. Symptoms of heart failure and fluid overload are a known side effect of that medication in some patients. The patient was diuresed and discharged home. This is her follow-up visit. The patient continues to have dyspnea and dyspnea on exertion. She states that it may be slightly better than when she first presented to the hospital but it is still present. He has been off her Enbrel and methotrexate for approximately one week. She still has occasional chest discomfort but not like that episode that happened prior to her hospitalization. The discomfort is described as a heaviness or a tightness. She is on her feet all day at work. She walks back and forth on a concrete floor for 8 hours a day. This contributes to some swelling in her ankles. It is worse by the end of the day and better in the morning. 01/21/2017 The patient presents today for a follow-up regarding her stress test results. Her stress test was performed on December 27, 2016. The stress test revealed global hypokinesis with an ejection fraction of 36%. There was no evidence of stress induced ischemia. The patient did not have any chest discomfort with a Lexiscan protocol. The ejection fraction on a recent echocardiogram on 12/07/2016 was 55% with no segmental wall motion abnormalities noted. There was evidence of grade 2 diastolic dysfunction on the echocardiogram. These are obviously discrepant results. The patient states that she feels better. Her shortness of breath is less noticeable. She does have an upper respiratory cold currently. She denies any further chest discomfort. She denies any lower extremity swelling. 07/28/2017 The patient presents today for her 6 month follow-up visit. Apparently she had a hospitalization at [facility] which led to transfer to [facility]. She had a cardiac catheterization performed which was reportedly without severe stenoses. Her medications were adjusted with the addition of carvedilol and spironolactone. Unfortunately I have no records to review at this time. None of the reports were forwarded to me. The patient cannot recall why she was sent to the emergency room from her primary care physician's office in January 2017. While I am doing this note I just received the records. The patient apparently was complaining of increased dyspnea on exertion and had an abnormal EKG. There were new ST and T-wave changes. The patient was sent to [place] emergency room where she was evaluated and eventually transferred to [facility] where she underwent a cardiac catheterization which revealed no evidence of coronary artery disease. The left ventricular ejection fraction was estimated at 40% by left ventriculogram. A 2-D echocardiogram was performed showing a left ventricular ejection fraction of 45%. The patient was given prescriptions for carvedilol and spironolactone. She then does not recall if she followed up with anyone after that hospitalization. Currently she feels fine and has no chest discomfort or shortness of breath. She denies any palpitations, syncopal or near syncopal episodes. She denies any edema, orthopnea or paroxysmal nocturnal dyspnea. 01/30/2018 The patient presents today for a 6 month follow-up visit. She is feeling well with less swelling than last visit. Had a couple of chest pain episodes following her son's sudden in July but no recurrence since then. She has been compliant with medications and feels fairly well. PAST MEDICAL HISTORY Diagnosis Date - Chronic pulmonary edema - HTN (hypertension) - CHARBEL on CPAP - RA (rheumatoid arthritis) (HCC) PAST SURGICAL HISTORY Procedure Laterality Date - APPENDECTOMY - BREAST LUMPECTOMY HX - CHOLECYSTECTOMY - FOOT SURGERY HX Left - HYSTERECTOMY HX Social History Substance Use Topics - Smoking status: Never Smoker - Smokeless tobacco: Never Used - Alcohol use Yes FAMILY HISTORY Problem Relation Age of Onset - Hypertension Mother - Heart Failure Mother - Diabetes Mother ALLERGIES: ALLERGIES Allergen Reactions - Sulfamethoxazole-Tr* Hives MEDICATIONS: spironolactone (ALDACTONE) 25 mg tablet TK 1 T PO ONCE DAILY carvedilol (COREG) 6.25 mg tablet TK 1 T PO BID leflunomide (ARAVA) 20 mg tablet TK 1 T PO QD. MUST GET STANDING LABS hydroxychloroquine (PLAQUENIL) 200 mg tablet Take by mouth once daily. lisinopril (ZESTRIL, PRINIVIL) 5 mg tablet Take 1 tablet by mouth once daily. furosemide (LASIX) 20 mg tablet Take 20 mg by mouth once daily. REVIEW OF SYSTEMS: GENERAL: Negative for: Fever, fatigue. CARDIAC: See HPI above. HEENT: Negative for: Ringing in Ears, nosebleeds, bleeding gums. NECK: Negative for: Pain, stiffness RESPIRATORY: Negative for: Blood in sputum, wheezing.Positive for dyspnea and dyspnea on exertion. GASTROINTESTINAL: Negative for: Trouble swallowing, blood in stool MUSCULOSKELETAL: Positive for: Joint stiffness and pain NEUROLOGIC: Negative for: Numbness, tremors PSYCHIATRIC: Negative for: Anxiety, depression SKIN: Negative for: Rashes, itching HEMATOLOGICAL/LYMPHAT IC: Negative for: Easy bruising, easy bleeding, painful lymph nodes I personally interviewed, confirmed and edited the above information if obtained by others. PHYSICAL EXAMINATION: BP 133/74 (BP Site: Right Arm, BP Position: Sitting, BP Cuff Size: Large Adult) Pulse 69 Resp 16 Wt 102.1 kg (225 lb) SpO2 98% BMI 42.51 kg/m? General: Well appearing, in no acute distress. Eyes: Conjunctiva normal, sclera normal Neck: No jugular venous distention, no palpable thyromegaly. Heart: Regular rhythm, S1, S2 normal, no S3, no S4. No murmur. No carotid bruits. Respiratory: Clear to auscultation bilaterally. Good respiratory effort. GI: Soft, nontender, bowel sounds normal, no palpable hepatosplenomegaly Extremities: Normal pulses in distal lower extremities. Trace bilateral lower extremity edema. Neuro: Alert, cooperative with no focal deficit. Psych: Pleasant and cooperative. Skin: No rashes or wounds. CARDIOVASCULAR MEDICINE TESTING: Electrocardiogram: 12/21/16 reveals normal sinus rhythm at 68 bpm. There is minimal voltage for left ventricular hypertrophy. There are nonspecific T-wave changes. The QT corrected was 463. Echocardiogram: The echocardiogram performed on 12/06/2016 revealed mild septal hypertrophy with no outflow tract obstruction. The left ventricular ejection fraction was estimated at 55%. There was evidence of grade 2 diastolic dysfunction. There was mild mitral regurgitation present. There was no other significant valvular disease identified. The right ventricular systolic pressure could not be estimated on this study. A Lexiscan nuclear stress evaluation on 12/28/2016 revealed no evidence of stress-induced ischemia. The left ventricular ejection fraction was moderately diminished at 36%. There was global hypokinesis noted. This does not match the patient's results from her echocardiogram noted above. Cardiac catheterization at [facility] in January 2017 revealed normal coronary arteries and a mild to moderate reduction in left ventricular ejection fraction at 40%. The LVEDP was elevated at 20-25 mmHg. A 2-D echocardiogram performed at [facility] in January 2017 revealed a left ventricular ejection fraction of 45%. IMPRESSION: 1. Chronic combined systolic and diastolic heart failure (HCC) - ICD9: 428.42, ICD10: I50.42 (primary diagnosis), new evidence in January 2017 of a mildly reduced left ventricular ejection fraction of 40-45% varying by way of evaluation, cardiac catheter LVEF 40%, echocardiogram LVEF 45%, carvedilol and spironolactone were added in January 2017. The patient has no new cardiac symptoms. Doing well currently. 2. Essential hypertension - ICD9: 401.9, ICD10: I10, controlled on current medical regimen. 3. Left ventricular diastolic dysfunction - ICD9: 429.9, ICD10: I51.9 4. Abnormal ECG - ICD9: 794.31, ICD10: R94.31, LVH, nonspecific T-wave changes previously. 5. Obesity, Class III, BMI >= 40 (morbid obesity) E66.01 - ICD9: 278.01, ICD10: E66.01 PLAN: Continue current medical regimen. Low-sodium diet. Weight loss. Regular aerobic exercise as able. Follow-up with me in 5-6 months or sooner if necessary. A copy of this note will be provided to the requesting provider by way of shared medical record or via U.S. Mail. This document was generated utilizing [employer]. I have reviewed and verified that the contents of the document are accurate with the exception of minor grammatical, spelling and punctuation errors. CONTACT INFORMATION: Thank you for allowing us to participate in the care of this very pleasant patient. Please free to contact us if we can be of any further assistance. Ceasar Cunha MD, [facility] Nataly Rodriguez Department of Cardiovascular Medicine Heart and Vascular [place] [facility] [place] [address] Office: [phone] Referring Provider: JOSE ANTONIO GARZA [[id number]] Allergies As of Date: 01/30/2018 Noted Allergy Reaction SULFAMETHOXAZOLE-TRIM ETHOPRIM 12/21/2016 4 - Hives Date Reviewed: 01/30/2018 Reviewed by: Ceasar Cunha - Fully Assessed Reason for Visit: Follow Up [171] Primary Visit Diagnosis:Chronic combined systolic and diastolic heart failure (HCC) [I50.42] Other Visit Diagnoses:Left ventricular diastolic dysfunction [I51.9] Abnormal ECG [R94.31] Essential hypertension [I10] Obesity, Class III, BMI >= 40 (morbid obesity) E66.01 [E66.01] Prescriptions as of 01/30/2018 Sig: SPIRONOLACTONE 25 MG TABLET TK 1 T PO ONCE DAILY CARVEDILOL 6.25 MG TABLET TK 1 T PO BID LEFLUNOMIDE 20 MG TABLET TK 1 T PO QD. MUST GET STANDI* HYDROXYCHLOROQUINE 200 MG TAB* Take by mouth once daily. LISINOPRIL 5 MG TABLET Take 1 tablet by mouth once d* FUROSEMIDE 20 MG TABLET Take 20 mg by mouth once samantha* Problem List As Of Date 01/30/2018 Noted Resolved Obesity, Class III, BMI >= 40 (morbid obesity) *INVALID FOR* Essential hypertension [I10] INVALID FOR* Left ventricular diastolic dysfunction [I51.9] INVALID FOR* Abnormal ECG [R94.31] INVALID FOR* Chronic combined systolic and diastolic heart f*INVALID FOR* Medications Discontinued During This Encounter meloxicam (MOBIC) 7.5 mg tablet 01/30/2018 Class: Historical Med Route: ORAL Sig: Take by mouth once daily. Disc: Discontinued by another Health Care Provider Encounter Status:Closed by JENNY CUNHA MD on 01/30/18 [facility] PROGRESSon 01-30-2018 Protein mass conc HNO ID: [id number] Author: Ceasar Cunha Service: (none) Author Type: Physician Type: Progress Notes Filed: 01/30/2018 11:03 AM Note Text: Heart and Vascular [place] [facility] Department of Cardiovascular Medicine OUTPATIENT VISIT DATE 01/30/18 OUTPATIENT VISIT TYPE ESTABLISHED PRIMARY CARE PHYSICIAN: Jose Antonio Garza MD [address] [place] [phone] CHIEF COMPLAINT: Patient presents with: Follow Up HISTORY OF PRESENT ILLNESS: Felicity Phillips is a 51 year old female with a past medical history of essential hypertension, grade 2 diastolic dysfunction by recent echocardiogram and rheumatoid arthritis. 12/21/2016 The patient presents today for a follow-up after her hospitalization. During her hospitalization she was treated for fluid overload. Her brain natruretic peptide was not elevated. Her echocardiogram revealed evidence of grade 2 diastolic dysfunction. The patient also had recently restarted her rheumatoid arthritis medication Enbrel. Symptoms of heart failure and fluid overload are a known side effect of that medication in some patients. The patient was diuresed and discharged home. This is her follow-up visit. The patient continues to have dyspnea and dyspnea on exertion. She states that it may be slightly better than when she first presented to the hospital but it is still present. He has been off her Enbrel and methotrexate for approximately one week. She still has occasional chest discomfort but not like that episode that happened prior to her hospitalization. The discomfort is described as a heaviness or a tightness. She is on her feet all day at work. She walks back and forth on a concrete floor for 8 hours a day. This contributes to some swelling in her ankles. It is worse by the end of the day and better in the morning. 01/21/2017 The patient presents today for a follow-up regarding her stress test results. Her stress test was performed on December 27, 2016. The stress test revealed global hypokinesis with an ejection fraction of 36%. There was no evidence of stress induced ischemia. The patient did not have any chest discomfort with a Lexiscan protocol. The ejection fraction on a recent echocardiogram on 12/07/2016 was 55% with no segmental wall motion abnormalities noted. There was evidence of grade 2 diastolic dysfunction on the echocardiogram. These are obviously discrepant results. The patient states that she feels better. Her shortness of breath is less noticeable. She does have an upper respiratory cold currently. She denies any further chest discomfort. She denies any lower extremity swelling. 07/28/2017 The patient presents today for her 6 month follow-up visit. Apparently she had a hospitalization at [facility] which led to transfer to [facility]. She had a cardiac catheterization performed which was reportedly without severe stenoses. Her medications were adjusted with the addition of carvedilol and spironolactone. Unfortunately I have no records to review at this time. None of the reports were forwarded to me. The patient cannot recall why she was sent to the emergency room from her primary care physician's office in January 2017. While I am doing this note I just received the records. The patient apparently was complaining of increased dyspnea on exertion and had an abnormal EKG. There were new ST and T-wave changes. The patient was sent to [facility] emergency room where she was evaluated and eventually transferred to [facility] where she underwent a cardiac catheterization which revealed no evidence of coronary artery disease. The left ventricular ejection fraction was estimated at 40% by left ventriculogram. A 2-D echocardiogram was performed showing a left ventricular ejection fraction of 45%. The patient was given prescriptions for carvedilol and spironolactone. She then does not recall if she followed up with anyone after that hospitalization. Currently she feels fine and has no chest discomfort or shortness of breath. She denies any palpitations, syncopal or near syncopal episodes. She denies any edema, orthopnea or paroxysmal nocturnal dyspnea. 01/30/2018 The patient presents today for a 6 month follow-up visit. She is feeling well with less swelling than last visit. Had a couple of chest pain episodes following her son's sudden in July but no recurrence since then. She has been compliant with medications and feels fairly well. PAST MEDICAL HISTORY Diagnosis Date - Chronic pulmonary edema - HTN (hypertension) - CHARBEL on CPAP - RA (rheumatoid arthritis) (HCC) PAST SURGICAL HISTORY Procedure Laterality Date - APPENDECTOMY - BREAST LUMPECTOMY HX - CHOLECYSTECTOMY - FOOT SURGERY HX Left - HYSTERECTOMY HX Social History Substance Use Topics - Smoking status: Never Smoker - Smokeless tobacco: Never Used - Alcohol use Yes FAMILY HISTORY Problem Relation Age of Onset - Hypertension Mother - Heart Failure Mother - Diabetes Mother ALLERGIES: ALLERGIES Allergen Reactions - Sulfamethoxazole-Tr* Hives MEDICATIONS: spironolactone (ALDACTONE) 25 mg tablet TK 1 T PO ONCE DAILY carvedilol (COREG) 6.25 mg tablet TK 1 T PO BID leflunomide (ARAVA) 20 mg tablet TK 1 T PO QD. MUST GET STANDING LABS hydroxychloroquine (PLAQUENIL) 200 mg tablet Take by mouth once daily. lisinopril (ZESTRIL, PRINIVIL) 5 mg tablet Take 1 tablet by mouth once daily. furosemide (LASIX) 20 mg tablet Take 20 mg by mouth once daily. REVIEW OF SYSTEMS: GENERAL: Negative for: Fever, fatigue. CARDIAC: See HPI above. HEENT: Negative for: Ringing in Ears, nosebleeds, bleeding gums. NECK: Negative for: Pain, stiffness RESPIRATORY: Negative for: Blood in sputum, wheezing.Positive for dyspnea and dyspnea on exertion. GASTROINTESTINAL: Negative for: Trouble swallowing, blood in stool MUSCULOSKELETAL: Positive for: Joint stiffness and pain NEUROLOGIC: Negative for: Numbness, tremors PSYCHIATRIC: Negative for: Anxiety, depression SKIN: Negative for: Rashes, itching HEMATOLOGICAL/LYMPHAT IC: Negative for: Easy bruising, easy bleeding, painful lymph nodes I personally interviewed, confirmed and edited the above information if obtained by others. PHYSICAL EXAMINATION: BP 133/74 (BP Site: Right Arm, BP Position: Sitting, BP Cuff Size: Large Adult) Pulse 69 Resp 16 Wt 102.1 kg (225 lb) SpO2 98% BMI 42.51 kg/m? General: Well appearing, in no acute distress. Eyes: Conjunctiva normal, sclera normal Neck: No jugular venous distention, no palpable thyromegaly. Heart: Regular rhythm, S1, S2 normal, no S3, no S4. No murmur. No carotid bruits. Respiratory: Clear to auscultation bilaterally. Good respiratory effort. GI: Soft, nontender, bowel sounds normal, no palpable hepatosplenomegaly Extremities: Normal pulses in distal lower extremities. Trace bilateral lower extremity edema. Neuro: Alert, cooperative with no focal deficit. Psych: Pleasant and cooperative. Skin: No rashes or wounds. CARDIOVASCULAR MEDICINE TESTING: Electrocardiogram: 12/21/16 reveals normal sinus rhythm at 68 bpm. There is minimal voltage for left ventricular hypertrophy. There are nonspecific T-wave changes. The QT corrected was 463. Echocardiogram: The echocardiogram performed on 12/06/2016 revealed mild septal hypertrophy with no outflow tract obstruction. The left ventricular ejection fraction was estimated at 55%. There was evidence of grade 2 diastolic dysfunction. There was mild mitral regurgitation present. There was no other significant valvular disease identified. The right ventricular systolic pressure could not be estimated on this study. A Lexiscan nuclear stress evaluation on 12/28/2016 revealed no evidence of stress-induced ischemia. The left ventricular ejection fraction was moderately diminished at 36%. There was global hypokinesis noted. This does not match the patient's results from her echocardiogram noted above. Cardiac catheterization at [facility] in January 2017 revealed normal coronary arteries and a mild to moderate reduction in left ventricular ejection fraction at 40%. The LVEDP was elevated at 20-25 mmHg. A 2-D echocardiogram performed at [facility] in January 2017 revealed a left ventricular ejection fraction of 45%. IMPRESSION: 1. Chronic combined systolic and diastolic heart failure (HCC) - ICD9: 428.42, ICD10: I50.42 (primary diagnosis), new evidence in January 2017 of a mildly reduced left ventricular ejection fraction of 40-45% varying by way of evaluation, cardiac catheter LVEF 40%, echocardiogram LVEF 45%, carvedilol and spironolactone were added in January 2017. The patient has no new cardiac symptoms. Doing well currently. 2. Essential hypertension - ICD9: 401.9, ICD10: I10, controlled on current medical regimen. 3. Left ventricular diastolic dysfunction - ICD9: 429.9, ICD10: I51.9 4. Abnormal ECG - ICD9: 794.31, ICD10: R94.31, LVH, nonspecific T-wave changes previously. 5. Obesity, Class III, BMI >= 40 (morbid obesity) E66.01 - ICD9: 278.01, ICD10: E66.01 PLAN: Continue current medical regimen. Low-sodium diet. Weight loss. Regular aerobic exercise as able. Follow-up with me in 5-6 months or sooner if necessary. A copy of this note will be provided to the requesting provider by way of shared medical record or via U.S. Mail. This document was generated utilizing [employer]. I have reviewed and verified that the contents of the document are accurate with the exception of minor grammatical, spelling and punctuation errors. CONTACT INFORMATION: Thank you for allowing us to participate in the care of this very pleasant patient. Please free to contact us if we can be of any further assistance. Ceasar Cunha MD, [facility] Nataly Rodriguez Department of Cardiovascular Medicine Heart and Vascular [place] [facility] [place] [address] Office: [phone] [facility] Vital Signs Date Time Vital Sign Value Performing Clinician Facility 05-31-2023 23:54-0500 Diastolic blood pressure 80 mm[Hg] MD Jose Antonio Garza Work Phone: [facility] 05-31-2023 23:54-0500 Systolic blood pressure 178 mm[Hg] MD Jose Antonio Garza Work Phone: [facility] 05-31-2023 21:57-0500 Body height 152.4 cm MD Jose Antonio Garza Work Phone: [facility] 05-31-2023 21:57-0500 Body temperature 98.9 [degF] MD Jose Antonio Garza Work Phone: [facility] 05-31-2023 21:57-0500 Body weight 102.65 kg MD Jose Antonio Garza Work Phone: [facility] 05-31-2023 21:57-0500 Heart rate 98 /min MD Jose Antonio Garza Work Phone: [facility] 05-31-2023 21:57-0500 Respiratory rate 20 /min MD Jose Antonio Garza Work Phone: [facility] 05-31-2023 21:57-0500 SaO2% (BldA) [Mass fraction] 96 % MD Jose Antonio Garza Work Phone: [facility] 05-11-2023 08:13-0400 Body height 154.9 cm Amanuel Valladares LABEL DESIGNER-CEMENT FINISHER Work Phone: [facility] 05-11-2023 08:13-0400 Body mass index (BMI) [Ratio] 42.32 kg/m2 Amanuel Valladares LABEL DESIGNER-CEMENT FINISHER Work Phone: [facility] 05-11-2023 08:13-0400 Body weight 101.61 kg Amanuel Valladares LABEL DESIGNER-CEMENT FINISHER Work Phone: [facility] 05-11-2023 08:13-0400 Diastolic blood pressure 80 mm[Hg] Amanuel Valladares LABEL DESIGNER-CEMENT FINISHER Work Phone: [facility] 05-11-2023 08:13-0400 Heart rate 92 /min Amanuel Valladares LABEL DESIGNER-CEMENT FINISHER Work Phone: [facility] 05-11-2023 08:13-0400 Systolic blood pressure 130 mm[Hg] Amanuel Valladares LABEL DESIGNER-CEMENT FINISHER Work Phone: [facility] 02-24-2023 11:56-0400 Body temperature 98.06 [degF] [facility] 02-24-2023 11:56-0400 Diastolic blood pressure 100 mm[Hg] [facility] 02-24-2023 11:56-0400 Heart rate 89 /min [facility] 02-24-2023 11:56-0400 Respiratory rate 16 /min [facility] 02-24-2023 11:56-0400 SaO2% (BldA) [Mass fraction] 98 % [facility] 02-24-2023 11:56-0400 Systolic blood pressure 200 mm[Hg] [facility] 11-25-2022 12:00-0400 Body height 154.94 cm [employer] Other [facility] [employer] Other 11-25-2022 12:00-0400 Body mass index (BMI) [Ratio] 45.91 kg/m2 [employer] Other [employer] Other 11-25-2022 12:00-0400 Body weight 110.22 kg [employer] Other [employer] Other 11-25-2022 12:00-0400 Diastolic blood pressure 98 mm[Hg] [employer] Other [employer] Other 11-25-2022 12:00-0400 Systolic blood pressure 160 mm[Hg] [employer] Other [employer] Other 07-07-2022 14:00-0500 Body height 154.94 cm Kyle Call II Other [employer] Other 07-07-2022 14:00-0500 Body mass index (BMI) [Ratio] 41.56 kg/m2 Kyle Phillips II Other [employer] Other 07-07-2022 14:00-0500 Body weight 99.79 kg Kyle Phillips II Other [employer] Other 07-05-2022 13:34-0500 Body height 154.94 cm MD Jose Antonio Garza Work Phone: [facility] 07-05-2022 13:34-0500 Body temperature 97.5 [degF] MD Jose Antonio Garza Work Phone: [facility] 07-05-2022 13:34-0500 Body weight 100 kg MD Jose Antonio Garza Work Phone: [facility] 07-05-2022 13:34-0500 Diastolic blood pressure 98 mm[Hg] MD Jose Antonio Garza Work Phone: [facility] 07-05-2022 13:34-0500 Heart rate 85 /min MD Jose Antonio Garza Work Phone: [facility] 07-05-2022 13:34-0500 Respiratory rate 20 /min MD Jose Antonio Garza Work Phone: [facility] 07-05-2022 13:34-0500 SaO2% (BldA) [Mass fraction] 96 % MD Jose Antonio Garza Work Phone: [facility] 07-05-2022 13:34-0500 Systolic blood pressure 188 mm[Hg] MD Jose Antonio Garza Work Phone: [facility] 05-19-2022 14:53-0400 Blood Pressure Location Jose Carlos MADRID [facility] [place] 05-19-2022 14:53-0400 Diastolic blood pressure 82 mm[Hg] Jose Carlos MADRID [facility] [place] 05-19-2022 14:53-0400 Heart rate 80 /min Jose Carlos MADRID [facility] [place] 05-19-2022 14:53-0400 Respiratory rate 16 /min Jose Carlos MADRID [facility] [place] 05-19-2022 14:53-0400 Systolic blood pressure 120 mm[Hg] Jose Carlos MADRID [facility] [place] 05-10-2022 09:07-0400 Body temperature 98.06 [degF] Mamadou Gonzalez [facility] 05-10-2022 09:07-0400 Diastolic blood pressure 88 mm[Hg] Mamadou Gonzalez [facility] 05-10-2022 09:07-0400 Heart rate 68 /min Mamadou Gonzalez [facility] 05-10-2022 09:07-0400 Respiratory rate 20 /min Mamadou Gonzalez [facility] 05-10-2022 09:07-0400 SaO2% (BldA) [Mass fraction] 98 % Mamadou Gonzalez [facility] 05-10-2022 09:07-0400 Systolic blood pressure 146 mm[Hg] Mamadou Gonzalez [facility] 03-18-2022 08:56-0400 Body height 154.94 cm Jose Antonio Fabrice Hoy Work Phone: [facility] [address] DO Work Phone: 03-18-2022 08:56-0400 Body mass index (BMI) [Ratio] 43.69 kg/m2 Jose Antonio M Hoy Work Phone: [facility] [address] DO Work Phone: 03-18-2022 08:56-0400 Body surface area Derived from formula 2.01 m2 Jose Antonio M Hoy Work Phone: [facility] [address] DO Work Phone: 03-18-2022 08:56-0400 Body weight 104.89 kg Jose Antonio M Hoy Work Phone: [facility] [address] DO Work Phone: 03-18-2022 08:56-0400 Diastolic blood pressure 82 mm[Hg] Jose Antonio M Hoy Work Phone: [facility] [address] DO Work Phone: 03-18-2022 08:56-0400 Heart rate 78 /min Jose Antonio Garza Work Phone: [facility] [address] DO Work Phone: 03-18-2022 08:56-0400 Systolic blood pressure 140 mm[Hg] Jose Antonio Avina Jannjenifer Work Phone: [facility] [address] DO Work Phone: Encounters Encounter Date Encounter Type Care Provider Facility Start: 08-01-2023 End: 08-01-2023 ambulatory BRITTANY CHOUDHURY Not Available Start: 06-27-2023 End: 06-27-2023 ambulatory BRITTANY CHOUDHURY Not Available Start: 06-21-2023 End: 06-21-2023 ambulatory BRITTANY CHOUDHURY Not Available Start: 05-31-2023 End: 06-01-2023 Emergency department patient visit Stef Molina Jr Facility:[facility] Start: 05-31-2023 End: 05-31-2023 Emergency department patient visit MD Jose Antonio Garza Work Phone: [facility] Work Phone: Start: 05-11-2023 End: 05-11-2023 ambulatory [facility] Start: 05-11-2023 End: 05-11-2023 Office outpatient visit 15 minutes [facility] LABEL DESIGNER-CEMENT FINISHER Work Phone: [facility] Comment on above: Non-ischemic cardiom yopathy (CMS/HCC) (Primary Dx); Primary hypertension; Obstructive sleep apnea syndrome; Morbid obesity (CMS/HCC); Hypertension, unspecified type; SOB (shortness of breath) on exertion Start: 04-28-2023 End: 04-28-2023 ambulatory Jose Antonio Garza Facility:[facility] Start: 04-28-2023 End: 04-28-2023 ambulatory MD Jose Antonio Garza Work Phone: [facility] Work Phone: Start: 04-28-2023 End: 04-28-2023 Patient encounter procedure MD Jose Antonio Garza Work Phone: [facility] [address] Work Phone: Start: 03-28-2023 Rx Renewal Jose Antonio Garza Work Phone: [facility] [address] DO Work Phone: Start: 02-24-2023 End: 02-24-2023 Emergency department patient visit [facility]jeff Nelson may Facility:[facility] Start: 02-24-2023 End: 02-24-2023 Emergency department [facility] Start: 01-05-2023 End: 01-05-2023 ambulatory Jose Antonio Garza Facility:[facility] Start: 01-05-2023 End: 01-05-2023 ambulatory MD Jose Antonio Garza Work Phone: [facility] Work Phone: Start: 01-05-2023 End: 01-05-2023 Patient encounter procedure MD Jose Antonio Garza Work Phone: [facility] [address] Work Phone: Start: 11-30-2022 End: 11-30-2022 ambulatory Maxi Glez Other [facility] [employer] Other Start: 11-30-2022 Telephone encounter Maxi Glez [employer] Start: 11-25-2022 End: 11-25-2022 ambulatory Nancy Kapadia Other [employer] Other Start: 11-25-2022 Office outpatient ne w 45 minutes Nancy Kapadia [facility] Start: 11-22-2022 Rx Renewal Jose Antonio Garza Work Phone: [facility] [address] DO Work Phone: Start: 11-13-2022 End: 11-14-[address] JOSE ANTONIO GARZA . Facility: Start: 11-03-2022 End: 11-03-2022 ambulatory Jose Antonio Garza Facility:[facility] Start: 11-03-2022 End: 11-03-2022 ambulatory MD Jose Antonio Garza Work Phone: [facility] Work Phone: Start: 11-03-2022 End: 11-03-2022 Patient encounter procedure MD Jose Antonio Garza Work Phone: [facility] [address] [place] Work Phone: Start: 11-01-2022 Rx Renewal Jose Antoniolasha Garza Work Phone: [facility] [address] DO Work Phone: Start: 10-19-2022 End: 10-19-2022 ambulatory Kyle Jakub II Other [employer] Other Start: 10-19-2022 Telephone encounter Kyle Phillips II [facility] Start: 10-07-2022 End: 10-07-2022 ambulatory Kyle Phillips II Other [employer] Other Start: 10-07-2022 Telephone encounter Kyle Phillips II [facility] Start: 09-29-2022 Office outpatient vi sit 25 minutes Kyle Phillips II [facility] Start: 09-29-2022 End: 09-29-2022 ambulatory Jose Antonio Garza Facility:[facility] Start: 09-29-2022 End: 09-29-2022 ambulatory MD Jose Antonio Garza Work Phone: [facility] Work Phone: Start: 09-29-2022 End: 09-29-2022 Patient encounter procedure MD Jose Antonio Garza Work Phone: [facility] Start: 09-06-2022 Rx Renewal Jose Antonio Garza Work Phone: [facility] [address] DO Work Phone: Start: 08-02-2022 End: 08-02-2022 ambulatory Kyle Floresle II Other [employer] Other Start: 08-02-2022 Telephone encounter Kyle Call II [facility] Start: 07-30-2022 End: 07-30-2022 ambulatory Kyle Floresle II Other [facility] [employer] Other Start: 07-30-2022 Office outpatient vi sit 25 minutes Kyle Jakub II [facility] Start: 07-27-2022 End: 07-27-2022 ambulatory Jose Antonio Garza Facility:[facility] Start: 07-27-2022 End: 07-27-2022 Patient encounter procedure MD Jose Antonio Garza Work Phone: [facility] [address] Work Phone: Start: 07-22-[address] JOSE ANTONIO GARZA . Facili ty:[facility] Start: 07-07-2022 End: 07-07-2022 ambulatory Kyle Call II Facility:[facility] Start: 07-07-2022 Office outpatient ne w 45 minutes Kyle Call II [facility] Start: 07-07-2022 End: 07-07-2022 ambulatory MD Jose Antonio Garza Work Phone: [facility] Work Phone: Start: 07-07-2022 End: 07-07-2022 Patient encounter procedure MD Jose Antonio Garza Work Phone: [facility] Start: 07-05-2022 End: 07-05-2022 Emergency department patient visit Jose Antonio Garza Facility:[facility] Start: 07-05-2022 End: 07-05-2022 Emergency department patient visit MD Jose Antonio Garza Work Phone: [facility] Start: 06-30-2022 End: 06-30-[address] JOSE ANTONIO GARZA . Facility: Start: 05-25-2022 End: 05-26-2022 ambulatory Jose Carlos Arias GAGANSandeep Facility:[facility] Start: 05-19-2022 End: 05-19-[address] JOSE ANTONIO GARZA . Facility:[facility] Start: 05-19-2022 End: 05-20-2022 ambulatory Jose Carlos MADRID Facility:[facility] Start: 05-19-2022 End: 05-19-2022 Patient encounter procedure Jose Carlos Arias GAGANSandeep [facility] Start: 05-18-2022 ambulatory Jose Antonio Garza Facility:[facility] Start: 05-10-2022 End: 05-10-2022 Emergency department patient visit Mamadou Gonzalez Facility:[facility] Start: 05-10-2022 End: 05-10-2022 Emergency department patient visit Mamadou Gonzalez [facility] Start: 03-18-2022 Office outpatient vi sit 15 minutes Jose Antonio Garza Work Phone: [facility] [address] DO Work Phone: Start: 03-01-2022 End: 03-01-[address] JOSE ANTONIO GARZA . Facility:[facility] Start: 02-22-2022 End: 02-22-2022 Patient encounter procedure MD Jose Antonio Garza Work Phone: [facility] [address] Start: 02-15-2022 End: 02-16-[address] JOSE ANTONIO GARZA . Facility:[facility] Start: 02-10-2022 End: 02-10-2022 Patient encounter procedure MD Jose Antonio Garza Work Phone: [facility] [place] Start: 01-26-2022 Rx Renewal Jose Antonio Garza Work Phone: [facility] [address] DO Work Phone: Start: 01-22-2022 Rx Renewal Jose Antonio Garza Work Phone: [facility] [address] DO Work Phone: Start: 10-06-2021 AUDIT Jose Antonio Garza Work Phone: [facility] [address] DO Work Phone: Start: 10-17-2018 Patient encounter procedure PROVIDER UNKNOWN Facility:[id number] Start: 10-17-2018 Patient encounter procedure Facility:[id number] Start: 05-30-2018 End: 06-09-2018 Patient encounter procedure [facility] Start: 01-30-2018 End: 01-30-2018 Patient encounter procedure [facility]AR C[facility] Start: 04-07-2017 End: 04-08-2017 Ambulatory DEFAULT PHYSICIAN Facility:[facility] Procedures Date Procedure Procedure Detail Performing Clinician Start: 05-31-2023 SARS-CoV-2, Influenz a & RSV (PCR) MD Jose Antonio Garza Work Phone: Start: 09-29-2022 Pelvis X-ray MD Jose Antonio Garza Work Phone: Start: 07-27-2022 MRI of right hip MD Rachel Garza Work Phone: Start: 07-07-2022 Pelvis X-ray MD Jose Antonio Garza Work Phone: Start: 07-07-2022 Plain X-ray of right hip MD Jose Antonio Garza Work Phone: Start: 07-05-2022 CT of right hip MD Tarik Garza Work Phone: Start: 07-18-2007 Lumpectomy w/ Lymph node removal left arm Mamadou Gonzalez Appendectomy Jose Antonio Fortey Work Phone: Appendectomy Mamadou Gonzalez Cholecystectomy Jose Antonio Avina Ho y Work Phone: Cholecystectomy Mamadou Gonzalez Hysterectomy Jose Antonio Fortey Work Phone: Insertion of arterial stent Jose Antonio Garza Work Phone: Operative procedure on foot Jose Antonio Garza Work Phone: Comment on above: LEFT; Total abdominal hyst erectomy with bilateral salpingo-oophorectomy Mamadou Gonzalez Total colonoscopy Jose Antonio Garza Work Phone: Comment on above: ONSET DATE [id number] JALEEL; Plan of Treatment Date Care Activity Detail Author Start: 05-10-2032 DTaP/Tdap/Td Vaccines (3 - Td or Tdap) DTaP/Tdap/Td Vaccines (3 - Td or Tdap) [facility] Start: 05-09-2024 End: 05-09-2024 Patient encounter procedure 05/09/2024 8:00 AM EDT Office Visit [facility] [address] [facility] [place] [address] Amanuel Valladares, LABEL DESIGNER-CEMENT FINISHER [address] [facility] [place] [address] [facility] Start: 05-31-2023 Plain chest X-ray XR chest 2V* [facility] Start: 05-31-2023 XR Chest 2 Views [facility] Start: 05-11-2023 FUV, Provider: Amanuel Davis, Status: Pen, Time: 8:00 AM FUV, Provider: Amanuel Davis, Status: Pen, Time: 8:00 AM [facility] Work Phone: Start: 03-23-2023 FUV, Provider: Amanuel Davis, Status: Pen, Time: 9:00 AM FUV, Provider: Amanuel Davis, Status: Pen, Time: 9:00 AM [facility] Work [facility]: Start: 03-18-2023 Influenza vaccination Influenza Vaccine (#1) [facility] Start: 03-17-2022 FUV, Provider: Frandy Fung, Status: Pen, Time: 10:10 AM FUV, Provider: Frandy Fung, Status: Pen, Time: 10:10 AM [facility] Work Phone: Start: 02-22-2022 End: 02-22-2022 Patient encounter procedure Departed Clinical [facility] [address] Start: 12-17-2021 FUV, Provider: Frandy Fung, Status: Pen, Time: 9:50 AM FUV, Provider: Frandy Fung, Status: Pen, Time: 9:50 AM -[facility] [address] DO Work Phone: Start: 11-22-2020 COVID-19 Vaccine (3 - Moderna risk series) COVID-19 Vaccine (3 - Moderna risk series) [facility] Start: 2006 Screening for malignant neoplasm of breast Mammogram [facility] Start: 1987 Screening for malignant neoplasm of cervix [facility] Start: 1985 Zoster Vaccines (1 of 2) Zoster Vaccines (1 of 2) [facility] Start: 1984 Diabetes mellitus screening Diabetes Screening [facility] Start: 1984 Hepatitis C screening Hepatitis C Screening [facility] Start: 1972 Pneumococcal Vaccine: Pediatrics (0 to 5 Years) and At-Risk Patients (6 to 64 Years) (1 - PCV) Pneumococcal Vaccine: Pediatrics (0 to 5 Years) and At-Risk Patients (6 to 64 Years) (1 - PCV) [facility] Start: 1967 MMR Vaccines (1 of 1 - Standard series) MMR Vaccines (1 of 1 - Standard series) [facility] Start: 1966 Hepatitis B Vaccines (1 of 3 - 3-dose series) Hepatitis B Vaccines (1 of 3 - 3-dose series) [facility] Start: 1966 HIV screening HIV Screening [facility] Start: 1966 Lipid panel Lipid Panel [facility] Start: 1966 Screening for malignant neoplasm of colon [facility] Start: 1966 Yearly Adult Physical Yearly Adult Physical [facility] Patient Education [facility] Work Phone: Patient referral [facility] Work Phone: Immunizations Immunization Date Immunization Notes Care Provider Shanta graham 05-10-2022 tetanus toxoid, redu lorena diphtheria toxoid, and acellular pertussis vaccine, adsorbed Mamadou Gonzalez [facility] 05-27-2021 influenza virus vaccine, unspecified formulation Jose Antonio M Hoy Work Phone: [facility] [address] DO Work Phone: 10-25-2020 Moderna COVID-19 Vaccine 100 MCG/0.5ML Intramuscular Suspension Jose Antonio M Hoy Work Phone: [facility] [address] DO Work Phone: 09-27-2020 Moderna COVID-19 Vaccine 100 MCG/0.5ML Intramuscular Suspension Jose Antonio M Hoy Work Phone: [facility] [address] DO Work Phone: 05-16-2020 influenza virus vaccine, unspecified formulation Jose Antonio M Hoy Work Phone: [facility] [address] DO Work Phone: 04-27-2020 influenza virus vaccine, unspecified formulation Jose Antonio M Hoy Work Phone: [facility] [address] DO Work Phone: 04-27-2020 influenza, seasonal, injectable Amanuel Valladares LABEL DESIGNER-CEMENT FINISHER Work Phone: [facility] Work Phone: 05-17-2019 influenza virus vaccine, unspecified formulation Jose Antonio M Hoy Work Phone: [facility] [address] DO Work Phone: 04-17-2018 influenza virus vaccine, unspecified formulation Jose Antonio M Hoy Work Phone: [facility] [address] DO Work Phone: 04-28-2016 influenza, injectabl e, quadrivalent, preservative free Jose Antonio M Hoy Work Phone: [facility] [address] DO Work Phone: 04-22-2016 influenza, seasonal, injectable MD Jose Antonio Garza Work Phone: [facility] 04-17-2016 influenza virus vaccine, unspecified formulation Jose Antonio Avina Kayla Work Phone: [facility] [address] DO Work Phone: 06-08-2014 tetanus toxoid, redu lorena diphtheria toxoid, and acellular pertussis vaccine, adsorbed Kyle Phillips II Other [facility] [employer] Other 06-01-2010 tetanus toxoid, redu lorena diphtheria toxoid, and acellular pertussis vaccine, adsorbed Mamadou Gonzalez [facility] Payers Date Payer Category Payer Unknown 1965 Unknown [id number] 1966 Unknown [id number] [id number] 1966 Unknown [id number] 2.16.840.1.719088.3.579.2.593 1966 Unknown [id number] 2.16.840.1.258569.3.579.2.593 1966 Unknown [id number] 2.16.840.1.390444.3.579.2.593 1966 Unknown [id number] 2.16.840.1.027301.3.579.2.593 1966 Unknown [id number] 2.16.840.1.819525.3.579.2.593 1966 Unknown [id number] 2.16.840.1.227692.3.579.2.593 1966 Unknown [id number] 2.16.840.1.560331.3.579.2.727 1966 Unknown [id number] 2.16.840.1.488823.3.579.2.727 1966 Unknown [id number] 2.16.840.1.813404.3.579.2.727 1966 Unknown [id number] 2.16.840.1.274041.3.579.2.727 1966 Unknown [id number] 2.16.840.1.196321.3.579.2.727 1966 Unknown [id number] 2.16.840.1.925404.3.579.2.1244 1966 Unknown [id number] 2.16.840.1.518632.3.579.2.1259 1966 Unknown [id number] 2.16.840.1.431867.3.579.2.1259 1966 Unknown [id number] 2.840.1.189084.3.579.2.1259 1959 Self-pay [id number] 1959 Unknown [id number] Unknown [id number] 2.840.1.728588.3.579.2.531 Unknown [id number] 2.16840.1.065772.3.579.2.531 Unknown [id number] 2.840.1.899034.3.579.2.531 Unknown [id number] .840.1.579668.3.579.2.531 Unknown [id number] 2.16840.1.191221.3.579.2.531 Unknown [id number] 2.16.840.1.336372.3.579.2.531 Unknown [id number] 2.16.840.1.312111.3.579.2.531 Unknown [id number] 2.16840.1.718540.3.579.2.531 Worker's Compensation [employer] [id number] Social History Date Type Detail Facility Caffeine use Caffeine use -[facility] [address] DO Work Phone: Comment on above: OCCASIONAL COFFEE; QUIT 07/19 PPD; Start: 06-01-2021 End: 05-11-2023 Tobacco smoking status NHIS Never smoked tobacco (finding) [facility] Start: 1965 Sex Assigned At Female F [facility] Sex Assigned At Female [facility] Tobacco smoking status Never [facility] [place] Start: 05-11-2023 Tobacco use and exposure Smokeless tobacco non-user [facility] Work Phone: Start: 05-11-2023 Alcohol intake Current drinke r of alcohol (finding) [facility] Work Phone: Start: 05-11-2023 Alcohol Comment social [facility] Work Phone: Start: 1965 Sex Assigned At Not on file [facility] Work Phone: Start: 05-01-2023 End: 05-11-2023 Exposure to SARS-CoV-2 (event) Not sure [facility] Start: 05-31-2023 Tobacco smoking stat us NHIS Ex-smoker (finding) [facility] Functional Status Date Assessment Result Facility 02-24-2023 Functional Status N/A [facility] 05-19-2022 Functional Status N/A [facility] 05-10-2022 Functional Status N/A [facility] Clinical Notes 02-16-2022 to 05-11-2023 Assessment & Plan Note - KADE Riggs - 05/11/2023 8:41 AM EDTAssessment & Plan Note - KADE Riggs - 05/11/2023 8:41 AM EDTPatient Instructions Note Date & Type Note Facility 05-11-2023 Evaluation + Plan note Associated Problem(s): SOB (shortness of breath) on exertion No evidence of volume overload Minimal complaints mostly due to deconditioning [facility] Work Phone: 05-11-2023 Miscellaneous Notes Associated Problem(s): SOB (shortness of breath) on exertion No evidence of volume overload Minimal complaints mostly due to deconditioning Associated Problem(s): Hypertension Optimal in office Associated Problem(s): Non-ischemic cardiomyopathy (CMS/HCC) HF improved EF 64% December 2020 MUGA (08/2020 TTE EF 30%) FC II Stage C Remains on optimal GDMT Associated Problem(s): Morbid obesity (CMS/HCC) Reviewed the merits of healthy lifestyle choices on overall cardiovascular health. Associated Problem(s): Sleep apnea Remains compliant with CPAP Associated Problem(s): Cardiac and Vasculature 2017 Cardiac cath angiographically normal coronaries: EF 40% documented in this encounter [facility] Work Phone: 05-11-2023 Evaluation + Plan note Associated Problem(s): Hypertension Optimal in office [facility] Work Phone: 05-11-2023 Evaluation + Plan note Associated Problem(s): Non-ischemic cardiomyopathy (CMS/HCC) HF improved EF 64% December 2020 MUGA (08/2020 TTE EF 30%) FC II Stage C Remains on optimal GDMT [facility] Work Phone: 05-11-2023 Evaluation + Plan note Associated Problem(s): Morbid obesity (CMS/HCC) Reviewed the merits of healthy lifestyle choices on overall cardiovascular health. [facility] Work Phone: 05-11-2023 Evaluation + Plan note Associated Problem(s): Sleep apnea Remains compliant with CPAP [facility] Work Phone: 05-11-2023 Evaluation + Plan note Associated Problem(s): Cardiac and Vasculature 2017 Cardiac cath angiographically normal coronaries: EF 40% [facility] Work Phone: 05-11-2023 History of Presen t illness Narrative Chief Complaint Doing fine Reason for Visit Routine annual follow-up Patient presents to the office today for outpatient follow-up for nonischemic cardiomyopathy. Last evaluated in clinic by Dr. Fung March 2022. At that time no medication changes or indication for additional cardiovascular testing. Presents today ambulatory with cane and steady gait. Accompanied by patient Patient denies any hospitalizations or significant changes to interval medical history since last office follow-up. She does report an accidental fall of July 2011 with subsequent pelvis fracture requiring 12 weeks of bedrest. She follows routinely with PCP, she had recent lab work completed. She also follows with rheumatology. History of Present Illness Patient is a pleasant 57-year-old female who presents for routine follow-up. Patient reports that overall has no complaint(s) of chest pain, exertional chest pressure/discomfort, fatigue, irregular heart beat, lower extremity edema, orthopnea, and palpitations She remains compliant with GDMT. She is able to walk into the [facility] without any complaints. She is actively working on weight loss. 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 Denies any change in exercise capacity or functional tolerance since last office visit. The importance of primary prevention reviewed: HTN: Optimal in office HLD: No current treatment, she does have annual lab work DM: Denies Smoker: Denies BMI: Reviewed the merits of healthy lifestyle choices on overall cardiovascular health. Overall patient is pleased with current state of cardiovascular health. At this time there are no indications for additional cardiovascular testing or need for medication changes. Review of Systems Cardiovascular: Negative for chest pain, dyspnea on exertion, irregular heartbeat, leg swelling, near-syncope, orthopnea, palpitations, paroxysmal nocturnal dyspnea and syncope. Visit Vitals BP 130/80 (BP Location: Right arm, Patient Position: Sitting) Pulse 92 Ht 1.549 m (5' 1 ) Wt 102 kg (224 lb) BMI 42.32 kg/m Smoking Status Never BSA 2.09 m Physical Exam Vitals and nursing note reviewed. HENT: Head: Normocephalic. Cardiovascular: Rate and Rhythm: Normal rate and regular rhythm. Heart sounds: Normal heart sounds. Pulmonary: Effort: Pulmonary effort is normal. Breath sounds: Normal breath sounds. Abdominal: Palpations: Abdomen is soft. Musculoskeletal: Right lower leg: No edema. Left lower leg: No edema. Skin: General: Skin is warm and dry. Neurological: General: No focal deficit present. Mental Status: She is alert. Psychiatric: Mood and Affect: Mood normal. Behavior: Behavior normal. Current Outpatient Medications Medication Instructions carvedilol (COREG) 12.5 mg, oral, 2 times daily Entresto 49-51 mg tablet 1 tablet, oral, 2 times daily furosemide (LASIX) 40 mg, oral, Daily hydroxychloroquine (PLAQUENIL) 200 mg, oral, Daily leflunomide (ARAVA) 20 mg, oral, Daily predniSONE (DELTASONE) 5 mg, oral, Daily PRN spironolactone (ALDACTONE) 25 mg, oral, Daily Assessment: Cardiac and Vasculature 2016 Cardiac cath angiographically normal coronaries: EF 40% Sleep apnea Remains compliant with CPAP Morbid obesity (CMS/HCC) Reviewed the merits of healthy lifestyle choices on overall cardiovascular health. Non-ischemic cardiomyopathy (CMS/HCC) HF improved EF 64% December 2020 MUGA (08/2020 TTE EF 30%) FC II Stage C Remains on optimal GDMT Hypertension Optimal in office SOB (shortness of breath) on exertion No evidence of volume overload Minimal complaints mostly due to deconditioning Plan: Through informed decision making process incorporating patients unique circumstances, the following treatment plan will be initiated: 1. Prescription drug management of cardiovascular medication for efficacy, adherence to treatment, side effect assessment and polypharmacy. Current treatment clinically warranted and to continue without modifications. Return for follow-up; in the interim, contact the office if new symptoms arise. INTERNAL GRINDER TENDER annual follow-up Current treatment plan is effective, no change in therapy. Reviewed diet, exercise and weight control. Reviewed medications and side effects in detail. Amanuel Valladares MSN, LABEL DESIGNER-CEMENT FINISHER, PMHNP-[facility] Please excuse any errors in grammar or translation related to this dictation. Voice recognition software was utilized to prepare this document. documented in this encounter [facility] Work Phone: 05-11-2023 Instructions KADE Riggs - 05/11/2023 8:00 AM EDT Please bring all medicines, vitamins, and herbal supplements with you when you come to the office. Prescriptions will not be filled unless you are compliant with your follow up appointments or have a follow up appointment scheduled as per instruction of your physician. Refills should be requested at the time of your visit. PLAN: Through informed decision making process incorporating patients unique circumstances, the following treatment plan will be initiated: 1. Prescription drug management of cardiovascular medication for efficacy, adherence to treatment, side effect assessment and polypharmacy. Current treatment clinically warranted and to continue without modifications. Return for follow-up; in the interim, contact the office if new symptoms arise. INTERNAL GRINDER TENDER annual follow-up documented in this encounter [facility] Work Phone: 02-24-2023 Hospital Discharg e instructions Patient Education 02/24/2023 13:18:12 Skin Abscess Skin Abscess A skin abscess is an infected area on or under your skin that contains a collection of pus and other material. An abscess may also be called a furuncle, carbuncle, or boil. An abscess can occur in or on almost any part of your body. Some abscesses break open (rupture) on their own. Most continue to get worse unless they are treated. The infection can spread deeper into the body and eventually into your blood, which can make you feel ill. Treatment usually involves draining the abscess. What are the causes? An abscess occurs when germs, like bacteria, pass through your skin and cause an infection. This may be caused by: A scrape or cut on your skin. A puncture wound through your skin, including a needle injection or insect bite. Blocked oil or sweat glands. Blocked and infected hair follicles. A cyst that forms beneath your skin (sebaceous cyst) and becomes infected. What increases the risk? This condition is more likely to develop in people who: Have a weak body defense system (immune system). Have diabetes. Have dry and irritated skin. Get frequent injections or use illegal IV drugs. Have a foreign body in a wound, such as a splinter. Have problems with their lymph system or veins. What are the signs or symptoms? Symptoms of this condition include: A painful, firm bump under the skin. A bump with pus at the top. This may break through the skin and drain. Other symptoms include: Redness surrounding the abscess site. Warmth. Swelling of the lymph nodes (glands) near the abscess. Tenderness. A sore on the skin. How is this diagnosed? This condition may be diagnosed based on: A physical exam. Your medical history. A sample of pus. This may be used to find out what is causing the infection. Blood tests. Imaging tests, such as an ultrasound, CT scan, or MRI. How is this treated? A small abscess that drains on its own may not need treatment. Treatment for larger abscesses may include: Moist heat or heat pack applied to the area several times a day. A procedure to drain the abscess (incision and drainage). Antibiotic medicines. For a severe abscess, you may first get antibiotics through an IV and then change to antibiotics by mouth. Follow these instructions at home: Medicines Take xujy-bso-vmjetzz and prescription medicines only as told by your health care provider. If you were prescribed an antibiotic medicine, take it as told by your health care provider. Do not stop taking the antibiotic even if you start to feel better. Abscess care If you have an abscess that has not drained, apply heat to the affected area. Use the heat source that your health care provider recommends, such as a moist heat pack or a heating pad. ?Place a towel between your skin and the heat source. ?Leave the heat on for 20 30 minutes. ?Remove the heat if your skin turns bright red. This is especially important if you are unable to feel pain, heat, or cold. You may have a greater risk of getting burned. Follow instructions from your health care provider about how to take care of your abscess. Make sure you: ?Cover the abscess with a bandage (dressing). ?Change your dressing or gauze as told by your health care provider. ?Wash your hands with soap and water before you change the dressing or gauze. If soap and water are not available, use hand project coach. Check your abscess every day for signs of a worsening infection. Check for: ?More redness, swelling, or pain. ?More fluid or blood. ?Warmth. ?More pus or a bad smell. General instructions To avoid spreading the infection: ?Do not share personal care items, towels, or hot tubs with others. ?Avoid making skin contact with other people. Keep all follow-up visits as told by your health care provider. This is important. Contact a health care provider if you have: More redness, swelling, or pain around your abscess. More fluid or blood coming from your abscess. Warm skin around your abscess. More pus or a bad smell coming from your abscess. Muscle aches. Chills or a general ill feeling. Get help right away if you: Have severe pain. See red streaks on your skin spreading away from the abscess. See redness that spreads quickly. Have a fever or chills. Summary A skin abscess is an infected area on or under your skin that contains a collection of pus and other material. A small abscess that drains on its own may not need treatment. Treatment for larger abscesses may include having a procedure to drain the abscess and taking an antibiotic. This information is not intended to replace advice given to you by your health care provider. Make sure you discuss any questions you have with your health care provider. Document Revised: 04/12/2022 Document Reviewed: 04/12/2022 [employer] Patient Education 2022 [employer]. 02/24/2023 13:18:12 Cellulitis, Adult Cellulitis, Adult Cellulitis is a skin infection. The infected area is usually warm, red, swollen, and tender. This condition occurs most often in the arms and lower legs. The infection can travel to the muscles, blood, and underlying tissue and become serious. It is very important to get treated for this condition. What are the causes? Cellulitis is caused by bacteria. The bacteria enter through a break in the skin, such as a cut, burn, insect bite, open sore, or crack. What increases the risk? This condition is more likely to occur in people who: Have a weak body defense system (immune system). Have open wounds on the skin, such as cuts, parsons, bites, and scrapes. Bacteria can enter the body through these open wounds. Are older than 60 years of age. Have diabetes. Have a type of long-lasting (chronic) liver disease (cirrhosis) or kidney disease. Are obese. Have a skin condition such as: ?Itchy rash (eczema). ?Slow movement of blood in the veins (venous stasis). ?Fluid buildup below the skin (edema). Have had radiation therapy. Use IV drugs. What are the signs or symptoms? Symptoms of this condition include: Redness, streaking, or spotting on the skin. Swollen area of the skin. Tenderness or pain when an area of the skin is touched. Warm skin. A fever. Chills. Blisters. How is this diagnosed? This condition is diagnosed based on a medical history and physical exam. You may also have tests, including: Blood tests. Imaging tests. How is this treated? Treatment for this condition may include: Medicines, such as antibiotic medicines or medicines to treat allergies (antihistamines). Supportive care, such as rest and application of cold or warm cloths (compresses) to the skin. Hospital care, if the condition is severe. The infection usually starts to get better within 1 2 days of treatment. Follow these instructions at home: Medicines Take lddr-cwq-lehbutb and prescription medicines only as told by your health care provider. If you were prescribed an antibiotic medicine, take it as told by your health care provider. Do not stop taking the antibiotic even if you start to feel better. General instructions Drink enough fluid to keep your urine pale yellow. Do not touch or rub the infected area. Raise (elevate) the infected area above the level of your heart while you are sitting or lying down. Apply warm or cold compresses to the affected area as told by your health care provider. Keep all follow-up visits as told by your health care provider. This is important. These visits let your health care provider make sure a more serious infection is not developing. Contact a health care provider if: You have a fever. Your symptoms do not begin to improve within 1 2 days of starting treatment. Your bone or joint underneath the infected area becomes painful after the skin has healed. Your infection returns in the same area or another area. You notice a swollen bump in the infected area. You develop new symptoms. You have a general ill feeling (malaise) with muscle aches and pains. Get help right away if: Your symptoms get worse. You feel very sleepy. You develop vomiting or diarrhea that persists. You notice red streaks coming from the infected area. Your red area gets larger or turns dark in color. These symptoms may represent a serious problem that is an emergency. Do not wait to see if the symptoms will go away. Get medical help right away. Call your local emergency services (911 in the [place] Do not drive yourself to the hospital. Summary Cellulitis is a skin infection. This condition occurs most often in the arms and lower legs. Treatment for this condition may include medicines, such as antibiotic medicines or antihistamines. Take ctrq-cry-znbygtm and prescription medicines only as told by your health care provider. If you were prescribed an antibiotic medicine, do not stop taking the antibiotic even if you start to feel better. Contact a health care provider if your symptoms do not begin to improve within 1 2 days of starting treatment or your symptoms get worse. Keep all follow-up visits as told by your health care provider. This is important. These visits let your health care provider make sure that a more serious infection is not developing. This information is not intended to replace advice given to you by your health care provider. Make sure you discuss any questions you have with your health care provider. Document Revised: 04/15/2022 Document Reviewed: 04/15/2022 [employer] Patient Education 2022 [employer]. Follow Up Care 02/24/2023 11:55:51 With:Jose Antonio Kayla Address: [address] [place], [place] [id number]- Business (1) When:02/27/2023 13:03:40 [facility] 02-24-2023 Evaluation + Plan note Extrac edd from: Title:ED Note Author:Rodrick Mobley PA-C te:02/24/23 Abscess (L02.91: Cutaneous a bscess, unspecified) Cellulitis (L03.90: Cellulitis, unspecified) Orders: cephalexin, 500 mg = 1 cap(s), Oral, TID, Take one capsule by mouth three times a day for ten days, # 30 cap(s), Refills(s) 0, [facility], 155, cm, 02/24/23 12:00:00 EDT, Height/Length Dosing, 108.2, kg, 02/24/23 12:00:00 EDT, Weight Dosing doxycycline, 100 mg = 1 tab(s), Oral, BID, X 10 day(s), # 20 tab(s), Refills(s) 0, [facility]acy: [facility], 155, cm, 02/24/23 12:00:00 EDT, Height/Length Dosing, 108.2, kg, 02/24/23 12:00:00 EDT, Weight Dosing Post-op Shoe [facility]05-11-2023 Evaluation note* Encounter Date Diagnosis Assessment Notes Treatment Notes Treatment Clinical Notes November, Lumbosacral radiculopathy (ICD-10 - M54.17) IrReviewed x-ray of the pelvis from 09/29/2022 and which shows healing pubic Justen fractures. Upon examination noted right SI joint inflammation and tenderness as well as right greater trochanter bursitis. I will refer the patient to pain management Dr. Bower, for sacroiliac and greater trochanter injections. Upon review noted previous history of anterior listhesis of the L4 upon L5. Will order MRI and xray lumbar spine 6v. Education completed on conservative therapy in which the patient will be referred to aqua therapy for strengthening conditioning. Discussion of pharmacological therapy, OARRS reviewed, in which I will order lidocaine patch patient will continue with current prescriptions and will get uplu-adf-ajcgwor Thermo patches. Follow-up in 6 weeks. Medical decision making shows a new problem to me with further workup planned or suggested with the potential for extensive treatment options that were considered with the most applicable given this patient's situation as noted above. Treatment options considered include a combination of physical therapy approaches, pharmacologic management, and interventional procedures. Those most applicable to the patient were discussed at this time. Risk of complications and/or morbidity and mortality is high given that acute and chronic pain poses a threat to life and bodily function if undertreated, poorly treated or with failure to maintain adequate treatment and timely follow up. Given the serious and fluctuating nature of pain with extensive consideration for whenever pain changes, there always remains the possibility of prolonged functional impairment requiring constant patient reassessment and high-level medical decision making. The amount and complexity of data reviewed is moderate given that patient labs, radiology reports, and other test were obtained, reviewed and summarized as applicable from the physician portal and/or outside medical records. Pertinent positive and negative findings were considered in medical decision-making. November, Sacroiliac inflammation (ICD-10 - M46.1) November, Greater trochanteric bursitis of right hip (ICD-10 - M70.61) November, Encounter for screening for depression (ICD-10 - Z13.31) PHQ reviewed score 0 negative screening [employer] Other 03-15-2023 Evaluation note* Encounter Date Diagnosis Assessment Notes Treatment Notes Treatment Clinical Notes Sep, Closed fracture of ramus of right pubis with routine healing, subsequent encounter (ICD-10 - S32.591D) Sep, Other We discussed he r x-ray findings today and I explained that everything is looking good and have not noticed any displacement. This point time I think that she will be able to wean off of her cane over time. I did explain to her that she may still have some persistent soreness but this should improve with time. I do not see anything on x-ray to suggest that it would not improve. In regards to her going back to work, I am fine with her going back to work without any restrictions. She can follow-up with me on a as needed basis. [employer] Other 01-13-2023 Evaluation note* Encounter Date Diagnosis Assessment Notes Treatment Notes Treatment Clinical Notes Jul, Closed fracture of ramus of right pubis, initial encounter (ICD-10 - S32.591A) Discussed with patient to continue off work until after MRI results. Patient given MRI information sheet Jul, Other I went over the MRI results with the patient and explained to her that this deep bone bruising is suggestive of nondisplaced fracture in the superior rami and the inferior rami was already noticeable on the CT scan but also demonstrates bony edema. At this point given the nondisplaced nature of the fractures I do not recommend anything from a surgical standpoint. As I explained to her the most important thing for her is time and rest to allow the bony edema to resolve and the bones to heal themselves. At this point I recommended continued protected weightbearing on the right lower extremity. Recommended continued Tylenol and mbgo-yyg-adwvhcp anti-inflammatory use. Also recommended continued calcium and vitamin D supplementation which she has already been doing. I will plan to check back with her in about 8 weeks with repeat AP pelvis, inlet, outlet views to check on the healing progress. [employer] Other 12-21-2022 Evaluation note* Encounter Date Diagnosis Assessment Notes Treatment Notes Treatment Clinical Notes Jun, Closed fracture of ramus of right pubis, initial encounter (ICD-10 - S32.591A) Discussed with patient to continue off work until after MRI results. Patient given MRI information sheet Jun, Other I had a long discussion with the patient regarding her CT findings. I explained to her that I do see a lucency that is referred in the CT report however I do not feel that that is related to her hip pain as she has not had any recent trauma. I do not think that that is from her fall in June either as there is no healing response. In regards to her right hip, I explained that the x-ray findings do not suggest much degenerative changes at all. Essentially her right hip x-ray is normal. However, she still having significant pain which could be concerning for avascular necrosis or labral pathology. As a result, we will get an MRI of the right hip and I will see her in follow-up. In the meantime she will remain off work until we get these MRI results. [employer] Other 11-02-2022 NoteChief Complaint consultation for right axilla abscess [facility] Staff 56 year old female presents on consultation from Dr. Garza for right axilla abscess. Reports 2-3 weekhistory of red, swollen, tender boil to axilla. States with the use of drawing salve and heat, she had one day of scant drainage. Yesterday PCP prescribed Doxycycline 500mg BID x 10 days and Cipro 5 00mg BID x 10 days. Never had cyst in this area in the past. History of Present Illness 56 yo female with h/o cardiomyopathy, htn, rheumatoid arthritis, eczema, referred for right axillary abscess; developed boil left posterior axilla; felt it rupture under the skin, began 1 1/2 weeks ago, increasing swelling now with pain, no fevers or drainage; placed on antibiotics by Dr Garza yesterday; no asa or NSAID use. Review of Systems PHQ Score Initial Depression Screen Score: 0 ROS - Provider Constitutional: no fever, no sweats, no weight loss. Eyes: no glasses, no blurred vision, no visual loss. ENMT: no dentures, no hoarseness, no swallowing difficulties, no hearing loss, no ear infection(s),no nose bleeds. Cardiovascular: normal blood pressure, no chest pain, regular heartbeat, no heart murmur. Respiratory: no shortness of breath, no cough, no asthma, no wheezing. Gastrointestinal: no nausea, no vomiting, no diarrhea, no constipation, no blood in stool, no change in bowel habits, no abdominal pain, no hepatitis. Genitourinary: no kidney stones, no urine infection, no dysuria. Musculoskeletal: no pain, no weakness. Skin: no changing moles, no rash, yes skin lumps. Neurologic: no seizures, no epilepsy, no headache. Psychiatric: no emotional or psychiatric problem. Heme/Lymph: no bleeding problems, no anemia, no blood clots, no transfusions. Allergy/Immunologic: no swollen lymph nodes/glands, no IV drug abuse. Other: Additional ROS info: Except as noted in the above Review of Systems and in the History of Present Illness, all other systems have been reviewed and are negative or noncontributory. Physical Exam Vitals & Measurements HR: 80(Peripheral) RR: 16 BP: 120/82 HT: 61 in HT: 154.9 cm WT: 107 kg WT: 235.4 lb BMI: 44.59 HEENT: normal conjunctiva, sclera clear, no scleral icterus, EOM intact, PERRLA, oral mucosa moist without lesions. Neck: trachea midline, no mass, symmetric, no thyromegaly or nodules, no adenopathy Lymphatic: no cervical adenopathy, no axillary adenopathy, right axilla with 2 cm area of fluctuance, skin discoloration, tender, no open areas or drainage, no skin necrosis or crepitus Musculoskeletal: normal gait, digits and nails without infection, nodes, cyanosis, clubbing. Skin: no rashes, no lesions, no ulcers, no subcutaneous nodules, induration. Psychiatric/Neuro: oriented to time, place, person, judgement normal, affect appropriate for age, insight intact, no focal deficits. Tests: review of old records completed, Discussed surgical options, risks, and possible complications with patient. Assessment/Plan 1. Cutaneous abscess of right axilla (L02.411: Cutaneous abscess of right axilla) drained under local anesthesia, sterile technique; large amount of thick purulent material drained and sent for culture; area wicked with 1/4 inch gauze; tolerated well; remove packing in am, wash with soap and water, keep covered until scabs over, no ointments; follow up next week, call sooner if p roblems/questions. 2. BMI 40.0-44.9, adult (Z68.41: Body mass index [BMI] 40.0-44.9, adult) Follow-up No qualifying data available Problem List/Past Medical History Ongoing Axillary abscess BMI 40.0-44.9, adult Cardiomyopathy Chronic combined systolic and diastolic heart failure Eczema Furuncle of right axilla HTN (hypertension) Immunodeficiency Left ventricular systolic dysfunction Lumbar radiculopathy lymph node removal Morbid obesity Nonischemic cardiomyopathy Rheumatoid arthritis Historical HTN RA Procedure/Surgical History Lumpectomy w/ Lymph node removal left arm (2007), Appendectomy, Cholecystectomy, NORMA BSO - Total abdominal hysterectomy and bilateral salpingo-oophorectomy. Medications carvedilol 12.5 mg Tab, 12.5 mg= 1 tab(s), Oral, BID Cipro 500 mg Tab, 500 mg= 1 tab(s), Oral, q12hr doxycycline hyclate 100 mg Cap, 100 mg= 1 cap(s), Oral, BID Entresto 49 mg-51 mg oral tablet, 1 tab(s), Oral, BID Lasix 40 mg Tab, 40 mg= 1 tab(s), Oral, Daily leflunomide 20 mg Tab Plaquenil, 200 mg, Oral, BID Rituxan spironolactone 25 mg Tab, 25 mg= 1 tab(s), Oral, Daily Allergies Bactrim (Hives) Enbrel (Unknown) methotrexate (CHF) Social History Alcohol - Denies Alcohol Use, 03/16/2013 Substance Abuse - Denies Substance Abuse, 01/16/2011 Tobacco - Denies Tobacco Use, 05/29/2010 Never (less than 100 in lifetime) Tobacco Use:. Never Smokeless Tobacco Use:., 05/19/2022 Family History Diabetes mellitus type 2: Mother. Heart failure: Mother. Hypertension: Mother. Ovarian cancer: Sister. Immuniza (more content not included)...[facility]:Result Comment: Electronically Signed By: DENISSE BRUNNER, Jose Carlos Davis\Date and Time Signed: 05/19/22 15:38 [id number] Evaluation + Plan noteExtracted from: Title:ED Note Author:Mamadou Gonzalez DO Date: Finger laceration (S61.219A: Laceration without foreign body of unspecified finger without damage to nail, initial encounter) Orders: tetanus/diphtheria/pertussis, acel (Tdap), 0.5 mL, Injection, Intramuscular-Immunization, Once, Stop date 05/10/22 9:16:00 EDT, STAT, Start date 05/10/22 9:16:00 EDT [facility]10-24-2022 Hospital Discharge instructions Follow Up Care 05/10/2022 09:04:11 With:Jose Antonio Garza Address: [address] [place] [phone]- Business (1) When:Within 3 Day(s) [facility]08-02-2022 NotePROCEDURE: XR HIPS HEATH 5V W PELVIS HISTORY: Hip pain ; bilateral hip pain for 3 months COMPARISON: None. FINDINGS: BONES:No fracture, dislocation, bone lesion. No significant joint space narrowing or periarticular degenerative osteophytes. SOFT TISSUES:No visible soft tissue swelling. EFFUSION:None visible. OTHER: Negative. IMPRESSION: 1. No acute bone abnormality. 2. No appreciable degenerative changes bilaterally. Electronically authenticated by: JOSÉ MIGUEL SERNA Date: 2022-02-16 06:14[facility] Future Appointments Appointment Date:05/25/2022 02:40:00 PM Scheduled Provider:Jose Carlos MADRID MD Location:[facility] Appointment Type: Established 15 Diagnostic Tests Pending * Wound Culture 05/19/22 [facility] Evaluation noteNo assessment information available [facility] Work Phone: Evaluation noteNo InformationNort inContact Other Evaluation note* Diagnosis Non-ischemic cardiomyopathy (CMS/HCC)- Primary Other primary cardiomyopathies Primary hypertension Unspecified essential hypertension Obstructive sleep apnea syndrome Obstructive sleep apnea (adult) (pediatric) Morbid obesity (CMS/HCC) Morbid obesity Hypertension, unspecified type SOB (shortness of breath) on exertion Shortness of breath documented in this encounter [facility] Work Phone: History general Narrative - Reported* Type Description Date Medical History RA Surgical History hysterectomy Surgical History cholecystectomy Surgical History appendectomy Surgical History left foot surgery [employer] Other History general Narrative - Reported* Type Description Date Medical History RA Surgical History hysterectomy Surgical History cholecystectomy Surgical History appendectomy Surgical History left foot surgery Hospitalization History see surg HX [employer] Other Hospital course Narrative No data available for this section [facility] Dis[facility] instructions No data available for this section [facility] Progress note No data available for this section [facility]Reason for referral (narrative)* Consultation (Routine) - Authorized Specialty Diagnoses / Procedures Referred By Reema rodriguez Referred To Contact Cardiology Diagnoses Non-ischemic cardiomyopathy (CMS/HCC) Primary hypertension Obstructive sleep apnea syndrome Procedures Follow Up In Cardiology Amanuel Valladares, KADE [address] [facility] [address] [place] [address] Referral ID Status Reason Start Date Expiration Date V isits Requested Visits Authorized [id number] Authorized 05/11/2023 05/10/2024 1 1 [facility] Work Phone: Summary Purpose Family History No Family History Records FoundUnknown Family Member Name Dates Details Heart problem: Mother Status:Active Family history of hypertensi on: Mother(V17.49, Z82.49) Status:Active FH: diabetes mellitus: Mothe r(V18.0, Z83.3) Status:Active Unknown Family Member Name Dates Details Heart problem: Mother Status:Active Family history of hypertensi on: Mother(V17.49, Z82.49) Status:Active FH: diabetes mellitus: Mothe r(V18.0, Z83.3) Status:Active Unknown Family Member Name Dates Details Heart problem: Mother Status:Active Family history of hypertensi on: Mother(V17.49, Z82.49) Status:Active FH: diabetes mellitus: Mothe r(V18.0, Z83.3) Status:Active Unknown Family Member Name Dates Details Heart problem: Mother Status:Active Family history of hypertensi on: Mother(V17.49, Z82.49) Status:Active FH: diabetes mellitus: Mothe r(V18.0, Z83.3) Status:Active Relationship Condition Age at Onset Recorded Date/T deepti Not Specified Congestive heart failure Unknown Unknown Family Member Name Dates Details Heart problem: Mother Status:Active Family history of hypertensi on: Mother(V17.49, Z82.49) Status:Active FH: diabetes mellitus: Kaydene r(V18.0, Z83.3) Status:Active Unknown Family Member Name Dates Details Heart problem: Mother Status:Active Family history of hypertensi on: Mother(V17.49, Z82.49) Status:Active FH: diabetes mellitus: Kaydene r(V18.0, Z83.3) Status:Active Unknown Family Member Name Dates Details Heart problem: Mother Status:Active Family history of hypertensi on: Mother(V17.49, Z82.49) Status:Active FH: diabetes mellitus: Mothe r(V18.0, Z83.3) Status:Active Unknown Family Member Name Dates Details Heart problem: Mother Status:Active Family history of hypertensi on: Mother(V17.49, Z82.49) Status:Active FH: diabetes mellitus: Mothe r(V18.0, Z83.3) Status:Active Advance Directives No Advanced Directives Records Found Advance Directive Response Recorded Date/ Time Advance Directives No March 1:46pm Advance Directive Response Recorded Date/ Time Advance Directives No March 12:46pm Chief Complaint and Reason for Visit Chief Complaint M05.79 Z79.899 M05.79;E79.899 Chief Complaint rt hip pain,nki Chief Complaint rt hip pain,nki S32.591A Chief Complaint rt hip pain,nki S32.591A s32.591a Chief Complaint s32.591D M05.79 Z79.899 Chief Complaint M05.79 Z79.899 Chief Complaint M05.79 Z79.899 Cold symptoms Chief Complaint * FELICITY PHILLIPS is being seen for an annual follow-up of. * 56-year-old female who returns for annual follow-up she is doing well. Last time I saw her was couple years ago she has been seeing nurse practitioner for the last 5 or 6 times. She remains on appropriate guideline directed medical therapies as reviewed * She has a history of nonischemic cardiomyopathy with normal coronary arteries, obesity, hypertension and rheumatoid arthritis. * Most recent MUGA scan revealed normal left ventricular function with ejection fraction 64% on current therapies. * We have no recent laboratories she is otherwise stable we have counseled her on dietary discretion weight loss and exercise * We will follow-up in 1 year with nurse practitioner Reason for Referral Reason Aqua therapy - evalu ate and treat Diagnosis 1 Lumbosacral radiculo vanessa (M54.17) Referral Organization [facility] Referring Provider First Name Nancy Referring Provider Last Name Kapadia Referring Provider Specialty Nurse Pract itioner Referred [facility] [address]erred Address [address] [place],[address] Referred Provider Specialty Physical The rapist Referral Priority Routine Reason evaluate for Si inje ction Diagnosis 1 Lumbosacral radiculo vanessa (M54.17) Referral Organization [facility] Referring Provider First Name Nancy Referring Provider Last Name Kapadia Referring Provider Specialty Nurse Pract itioner Referred Organization [facility] Pain Managemen t Referred Provider Maxi Glez Referred Address [address] [facility] [address] ,[place], [place],[address] Referred Provider Specialty Pain Medicin e Referral Priority Routine Additional Source Comments INFORMATION SOURCE (unrecogn ized section and content) DATE CREATED AUTHOR 01/11/2018 [facility] DATE CREATED AUTHOR AUTHOR'S ORGANIZ ATION 08/11/2018 [facility] DATE CREATED AUTHOR AUTHOR'S ORGANIZ ATION 10/20/2018 [facility] DATE CREATED AUTHOR AUTHOR'S ORGANIZ ATION 10/21/2018 [facility] DATE CREATED AUTHOR AUTHOR'S ORGANIZ ATION 01/28/2021 [facility] DATE CREATED AUTHOR AUTHOR'S ORGANIZ ATION 03/19/2022 [facility] DATE CREATED AUTHOR AUTHOR'S ORGANIZ ATION 11/19/2022 [facility] DATE CREATED AUTHOR AUTHOR'S ORGANIZ ATION 02/25/2023 [facility] DATE CREATED AUTHOR AUTHOR'S ORGANIZ ATION 05/15/2023 [facility] DATE CREATED AUTHOR AUTHOR'S ORGANIZ ATION 06/10/2023 [facility] DATE CREATED AUTHOR AUTHOR'S ORGANIZ ATION 08/01/2023 [facility] EPIC Care Teams (unrecognized sec tion and content) Team Status: Inactive Member Role Status Dates Jose Antonio Garza MD Primary Care Provider Active Kyle Calderon MD Attending Provider Active Team Status: Active Member Role Status Dates Jose Antonio Garza MD Primary Care Provider Active Team Status: Inactive Member Role Status Dates Jose Antonio Garza MD Primary Care Provider Active Narayan Bridges APRN Emergency Provider Active Team Status: Inactive Member Role Status Dates Jose Antonio Garza MD Primary Care Provider Active Kyle Call II, MD Attending Provider Active Client Service Administrator Relationship Specialty Start Date End Date Jose Antonio Garza MD [address] [facility] [place] [address] PCP - General 09/04/20 Team Status: Inactive Member Role Status Dates Jose Antonio Garza MD Primary Care Provider Active Stef Molina Jr, MD Emergency Provider Active Goals (unrecognized section and content) Goals may be documented in a n alternate sectionGoals may be documented in an alternate section No data available for this section No data available for this sectionGoals may be documented in an alternate sectionGoals may be documented in an alternate sectionNo InformationNo InformationNo InformationGoals may be documented in an alternate sectionNo InformationNo InformationNo InformationGoals may be documented in an alternate sectionNo InformationNo InformationGoals may be documented in an alternate section No data available for this sectionGoals may be documented in an alternate sectionGoals may be documented in an alternate section REASON FOR VISIT (unrecogniz ed section and content) Reason Comments Follow-up Overdue rx FOR RECORDS PERTAINING TO PATIENTS WHO ARE OR HAVE BEEN ENROLLED IN A CHEMICAL DEPENDENCY/SUBSTANCEABUSE PROGRAM, SOME INFORMATION MAY BE OMITTED. This clinical summary was aggregated from multiple sources. Caution should be exercised in using it in the provision of clinical care. This summary normalizes information from multiple sources, and as a consequence, information in this document may materially change the coding, format and clinical context of patient data. In addition, data may be omitted in some cases. CLINICAL DECISIONS SHOULD BE BASED ON THE PRIMARY CLINICAL RECORDS. [facility] provides no warranty or guarantee of the accuracy or completeness of information in this document.
== END 2023-08-08 08:10 | disposition home or self-care (01) ==
LOC: RAD 08:09
PROVIDERS: PCP Family Medicine; Visit Provider Orthopaedic Surgery
DX: S32.591K Other specified fracture of right pubis, subsequent encounter for fracture with nonunion (principal)
CPT/HCPCS: 72170

== ENCOUNTER 2023-09-15 15:45 | Outpatient (OUT) | payer BC, SELFPAY ==
[2023-09-15 16:05] LABS: Bilirubin Urine NEGATIVE (NEGATIVE); Blood Urine NEGATIVE (NEGATIVE); Clarity Urine CLEAR (CLEAR); Color Urine YELLOW (YELLOW); Glucose Urine UA NEGATIVE (NEGATIVE); Ketones Urine TRACE mg/dL (NEGATIVE); Leukocyte Esterase Urine TRACE (NEGATIVE); Nitrite Urine NEGATIVE (NEGATIVE); Protein Urine NEGATIVE (NEG/TRACE); Specific Gravity Urine >=1.030 (1.005-1.025); Urobilinogen Urine 0.2 EU/dL (0.2-1.0); pH Urine 5.5 (5.0-9.0)
[2023-09-15 16:27] LABS: Bacteria Urine SMALL #/HPF (NONE SEEN); Cast Seen? NONE SEEN #/LPF (NONE SEEN); Crystals Seen? None Seen #/HPF (None Seen); Mucus Urine SMALL (NONE SEEN); RBC Urine 0-2 #/HPF (0-2); Squamous Epithelial Cell Urine MODERATE #/LPF (NONE/RARE)
== END 2023-09-15 15:46 | disposition home or self-care (01) ==
LOC: LAB 15:47
PROVIDERS: PCP Family Medicine; Visit Provider Family Medicine
DX: N39.0 Urinary tract infection, site not specified (principal)
CPT/HCPCS: 81001; 87086

== ENCOUNTER 2023-10-10 07:43 | Outpatient (OUT) | payer BC, SELFPAY ==
--- NOTE | 2023-10-10 | XR_ITS ---
The [address] [address] Patient Name: FELICITY PHILLIPS MRN: [id number] date: 1965 Sex: F Assigned Patient Location: Current Patient Location: Accession/Order Number: [id number] Exam Date: 10/10/2023 07:43 Report Date: 10/10/2023 09:29 At the request of: JOSÉ MIGUEL WISDOM Procedure: XR pelvis 1-2V PROCEDURE: XR pelvis 1-2V COMPARISON: 08/08/2023 HISTORY: PELVIS PAIN FINDINGS: BONES:Remote healed fractures of the right superior and inferior pubic rami. No new fracture or dislocation. SOFT TISSUES:Negative. No visible soft tissue swelling. EFFUSION:None visible. OTHER: Limited by patient body habitus with underpenetration XR/XR pelvis 1-2V IMPRESSION: Remote right pubic ramus fractures Electronically authenticated by: UNA ELMORE Date: 10/10/2023 09:29
--- OUTSIDE RECORDS SUMMARY | 2023-10-10 07:47 | XMS_ITS | CCD ---
Author Organization [facility] Care Team Providers Care Pet Feeder Name Role Phone PHYSICIAN, DEFAULT Unavailable Unavailable PHYSICIAN, DEFAULT Unavailable Unavailable CEASAR CUNHA Attending Unavailab JOSE ANTONIO Romero Referring Unavailable CEASAR CUNHA Attending Unavailab JOSE ANTONIO Romero Referring Unavailable UNKNOWN, PROVIDER Attending Unavailable UNKNOWN, PROVIDER Primary Care Unavailable Jose Antonio Garza Unavailable Unavailable Unavailable MD Jose Antonio Garza Primary Care Provider MD Kyle Calderon Attending Provider [phone] Jose Antonio Garza Primary Care Physician MD Jose Antonio Garza Primary Care Provider MATTHEW Bridges Emergency Provider MD Kyle Call II Attending Provider Kyle Call II Unavailable MD Jose Antonio Garza Primary Care Provider MATTHEW Bridges Emergency Provider MD Kyle Call II Attending Provider MD Jose Antonio Garza Primary Care Provider MD Kyle Call II Attending Provider [phone] MD Kyle Calderon Attending Provider KAI Grover, DR BRADY Attending Unavailable HOY ., DR [...] Unavailable HOY ., DR BRADY Admitting Unavailable CONCORD, DR UNA Mims Consulting Unavailable Steffi Nancy Unavailable Maxi Glez Unavailable MD Jose Antonio Garza Primary Care Provider Mamadou Gonzalez Attending Unavailable Jose Antonio Garza Referring Unavailable Jose Carlos MADRID Attending Unavailable Jose Carlos MADRID Attending Unavailable Jose Carlos MADRID Attending Unavailable Briana Winters H Attending Unavailable MD Jose Antonio Garza Primary Care Provider [phone] MD Kyle Calderon Attending Provider Jose Antonio Garza MD Primary Care Provider [phone] AMANUEL VALLADARES Attending Unavailable JOSE ANTONIO GARZA Primary Care Unavailable MD Jose Antonio Garza Primary Care Provider MD Kyle Calderon Attending Provider [phone] MD Stef Molina Jr Emergency Provider BRITTANY CHOUDHURY Attending Unavailable BRITTANY CHOUDHURY Referring Unavailable BRITTANY CHOUDHURY Attending Unavailable BRITTANY CHOUDHURY Attending Unavailable BRITTANY CHOUDHURY Referring Unavailable Kyle Calderon Admitting Unavailable Kyle Calderon Attending Unavailable Jose Antonio Garza Primary Care Unavailable Kyle Calderon Attending Unavailable Kyle Calderon Admitting Unavailable Jose Antonio Garza Primary Care Unavailable Jose Antonio Garza Primary Care Unavailable Kyle Calderon Admitting Unavailable Kyle Calderon Attending Unavailable Stef Molina Jr Admitting Unavailable Stef Molina Jr Attending Unavailable Jose Antonio Garza Primary Care Unavailable Kyle Calderon Admitting Unavailable Kyle Calderon Attending Unavailable Jose Antonio Garza Primary Care Unavailable Allergies Allergy Classification Reported Allergen(s) Allergy Type Date of Onset Reaction(s) Facility (12 sources) Sulfamethoxazole / Trimethoprim; Translations: [SULFAMETHOXAZOLE-TR IMETHOPRIM] Drug Allergy 7 [facility] Repository (20 sources) Etanercept; Translations: [etanercept] Drug Allergy 1 Unknown (qualifier value), Unknown [facility] (20 sources) Methotrexate; Translations: [methotrexate] Drug Allergy 1 Unknown [facility] (20 sources) Sulfamethoxazole / Trimethoprim; Translations: [Bactrim DS TABS] Drug Allergy [facility], [facility] (10 sources) Sulfamethoxazole; Translations: [sulfamethoxazole] Drug Allergy 7 [facility] (10 sources) Trimethoprim; Translations: [trimethoprim] Drug Allergy 7 [facility] (2 sources) Etanercept; Translations: [Enbrel] Drug Allergy 1 [facility] Repository (1 source) Methotrexate Drug Allergy 1 [facility] Repository (3 sources) Sulfamethoxazole / Trimethoprim; Translations: [Bactrim] Drug Allergy 4 [facility] Repository (1 source) Etanercept Drug Allergy 3 [facility] Repository (1 source) Methotrexate Drug Allergy 3 [facility] Repository Medications Current Medications Medication Drug Class(es) [...] Discontinued 6.25 MG PO Twice daily 60 30 March 24, 2017 11:00pm October 20, 2017 [...] day(s), # 20 tab(s), Refills(s) 0, Pharmacy: [facility] 1986, 155, cm, 02/24/23 12:00:00 EDT, Height/Length [...] Daily, # 30 tab(s), Refills(s) 0, Pharmacy: [facility] Start Date: 12/07/16 Status: Ordered homatropine methylbromide 0.3 mg/ml / HYDROcodone bitartrate 1 mg/ml oral solution (1 source) Opioid Agonist, Cholinergic Muscarinic Agonist Start: 05-31-2023 take 1 mL by mouth every six hours Hydrocodone-Homatropine Active 5 ML PO Q6H 100 5 May 31, 2023 ibuprofen 600 mg oral [...] pain, # 20 tab(s), Refills(s) 0, Pharmacy: [facility] 1985, 152.4, cm, 05/21/21 7:42:00 [...] As Directed, 6tab/day x7days,5tab/day x7days,4tab/day x7day,3tab/day x7day,2tab/day x7day,1tab/sekj5syo, # 119 tab(s), Refills(s) 0, Pharmacy: [facility] 1985 Start Date: 12/07/16 Status: Ordered take 1 tablet by neida th every twenty-four hours predniSONE 20 MG 1 tablet Orally Once a day Active Rituxan (2 sources) [id number] Cytolytic Antibody Start: 05-19-2022 Rituxan Refills(s) 0 [...] days, # 30 cap(s), Refills(s) 0, Pharmacy: [facility] 1985, 155, cm, 02/24/23 12:00:00 [...] nail, initial encounter] Onset: 05-10-2022 Episodic Other aftercare (1 source) Other group home (current) drug therapy; Translations: [Other long term care administrator (current) drug therapy] Onset: 09-27-2023 Episodic Other circulatory disease (9 sources) H/O: [...] arthritis; Translations: [Rheumatoid arthritis, unspecified] Onset: 05-11-2023 2 Chronic Screening and history of mental health [...] sites without organ or systems involvement] Onset: 01-05-2023 Viral infection (1 source) Disease caused by [...] HIP] Onset: 02-15-2022 Episodic Unclassified (3 sources) RA 06-01-2010 Results Test Name Value Interpretation Reference Range Facility Complete Blood Count Auto Di ffon 09-27-2023 Basophils (Bld) [#/Vol] 0.1 10*3/uL Normal 0.0-0.2 [facility] Comment on above: Performed By: #### E SR, CBC, HEPATIC, CREAT #### [facility] [address] [place] [address] Basophils/100 WBC (Bld) 0.9 % Normal . [facility] Comment on above: Performed By: #### E SR, CBC, HEPATIC, CREAT #### [address] Eosinophils (Bld) [#/Vol] 0.1 10*3/uL Normal 0.0-0.45 [facility] Comment on above: Performed By: #### E SR, CBC, HEPATIC, CREAT #### [address] Eosinophils/100 WBC (Bld) 1.5 % Normal . [facility] Comment on above: Performed By: #### E SR, CBC, HEPATIC, CREAT #### [address] Erythrocyte distribution width (RBC) [Ratio] 13.6 % Normal 11.9-15.3 [facility] Comment on above: Performed By: #### E SR, CBC, HEPATIC, CREAT #### [address] Hematocrit (Bld) [Volume fraction] 37.3 % Normal 34.0-46.4 [facility] Comment on above: Performed By: #### E SR, CBC, HEPATIC, CREAT #### [address] Hemoglobin (Bld) [Mass/Vol] 12.5 g/dL Normal 11.8-15.4 [facility] Comment on above: Performed By: #### E SR, CBC, HEPATIC, CREAT #### [address] [place] [address] [place] Lymphocytes (Bld) [#/Vol] 2.0 10*3/uL Normal 1.00-4.8 [facility] Comment on above: Performed By: #### E SR, CBC, HEPATIC, CREAT #### [address] Lymphocytes/100 WBC (Bld) 22.4 % Normal . [facility] Comment on above: Performed By: #### E SR, CBC, HEPATIC, CREAT #### [address] MCH (RBC) [Entitic mass] 30.9 pg Normal 24.7-34.3 [facility] Comment on above: Performed By: #### E SR, CBC, HEPATIC, CREAT #### [address] MCV (RBC) [Entitic vol] 92.4 fL Normal 80-100 [facility] Comment on above: Performed By: #### E SR, CBC, HEPATIC, CREAT #### [address] Mean Corpuscular HGB Conc 33.4 g/dL Normal 32.0-35.0 [facility] Comment on above: Performed By: #### E SR, CBC, HEPATIC, CREAT #### [address] Monocytes (Bld) [#/Vol] 0.7 10*3/uL Normal 0.0-0.8 [facility] Comment on above: Performed By: #### E SR, CBC, HEPATIC, CREAT #### [place] [address] [place] Monocytes/100 WBC (Bld) 7.3 % Normal . [facility] Comment on above: Performed By: #### E SR, CBC, HEPATIC, CREAT #### [address] Neutrophils (Bld) [#/Vol] 6.1 10*3/uL Normal 1.8-7.7 [facility] Comment on above: Performed By: #### E SR, CBC, HEPATIC, CREAT #### [address] Neutrophils/100 WBC (Bld) 67.9 % Normal . [facility] Comment on above: Performed By: #### E SR, CBC, HEPATIC, CREAT #### [address] NRBC% 0.1 /100{WBC} Normal 0-0.5 [facility] Comment on above: Performed By: #### E SR, CBC, HEPATIC, CREAT #### [address] Platelet mean volume (Bld) [Entitic vol] 8.8 fL Normal 6.3-10.7 [facility] Comment on above: Performed By: #### E SR, CBC, HEPATIC, CREAT #### [address] Platelets (Bld) [#/Vol] 212 10*3/uL Normal 150-450 [facility] Comment on above: Performed By: #### E SR, CBC, HEPATIC, CREAT #### [address] RBC (Bld) [#/Vol] 4.03 10*6/uL Normal 3.60-5.00 [facility] Comment on above: Performed By: #### E SR, CBC, HEPATIC, CREAT #### [address] WBC (Bld) [#/Vol] 8.9 10*3/uL Normal 3.8-11.6 [facility] Comment on above: Performed By: #### E SR, CBC, HEPATIC, CREAT #### [address] Creatinineon 09-27-2023 Creatinine [Mass/Vol] 0.88 mg/dL Normal 0.60-1.20 [facility] Comment on above: Performed By: #### E SR, CBC, HEPATIC, CREAT #### [facility] [address] GFR/1.73 sq M.predicted MDRD (S/P/Bld) [Vol rate/Area] mL/min/{1.73_m2} Normal [facility] Comment on above: Result Comment: PERF ORMED BY: [place] [address] PATHOLOGIST CROSSBAR SWITCH ADJUSTER TAMERA DAO M.D. Performed By: #### E SR, CBC, HEPATIC, CREAT #### [facility] [address] [place] [id number] [facility] Erythrocyte Sedimentation Ra moon 09-27-2023 ESR (Bld) [Velocity] 27 mm/h Normal 0-29 [facility] Comment on above: Result Comment: PERF ORMED BY: [place] [address] PATHOLOGIST CROSSBAR SWITCH ADJUSTER TAMERA DAO M.D. Performed By: #### E SR, CBC, HEPATIC, CREAT #### [facility] [address] Hepatic Panelon 09-27-2023 Albumin [Mass/Vol] 4.1 g/dL Normal 3.5-5.7 [facility] Comment on above: Performed By: #### E SR, CBC, HEPATIC, CREAT #### [facility] [address] [place] [id number] [facility] Albumin/Globulin [Mass ratio] 1.9 {ratio} Normal [facility] Comment on above: Performed By: #### E SR, CBC, HEPATIC, CREAT #### [facility] [address] [place] [id number] [place] ALP [Catalytic activity/Vol] 107 U/L High 34-104 [facility] Comment on above: Performed By: #### E SR, CBC, HEPATIC, CREAT #### [facility] [address] [place] [address] [place] ALT [Catalytic activity/Vol] 72 U/L High 7-52 [facility] Comment on above: Performed By: #### E SR, CBC, HEPATIC, CREAT #### [facility] [address] AST [Catalytic activity/Vol] 81 U/L High 13-39 [facility] Comment on above: Performed By: #### E SR, CBC, HEPATIC, CREAT #### [facility] [address] Bilirubin [Mass/Vol] 0.6 mg/dL Normal 0.3-1.0 [facility] Comment on above: Performed By: #### E SR, CBC, HEPATIC, CREAT #### [facility] [address] Bilirubin,Indirect 0.5 mg/dL Normal [facility] Comment on above: Performed By: #### E SR, CBC, HEPATIC, CREAT #### [facility] [address] Bilirubin.indirect [Mass/Vol] 0.10 mg/dL Normal 0.03-0.18 [facility] Comment on above: Performed By: #### E SR, CBC, HEPATIC, CREAT #### [facility] [address] Globulin (S) [Mass/Vol] 2.2 g/dL Normal [facility] Comment on above: Performed By: #### E SR, CBC, HEPATIC, CREAT #### [address] Protein [Mass/Vol] 6.3 g/dL Low 6.4-8.9 [facility] Comment on above: Performed By: #### E SR, CBC, HEPATIC, CREAT #### [address] COVID-19 / Flu A/B / RSV PCR [...] Negative COVID19 Blank Space Cepheid Disclaimer The Cepheid Xpert Xpress CoV-2/Flu/RSV Plus has Cepheid Disclaimer [...] or Cepheid Disclaimer revoked sooner. PERFORMED BY: [facility] [address] [facility] [place] [address] PATHOLOGIST CROSSBAR SWITCH ADJUSTER TAMERA DAO M.D. Normal [facility] Comment on above: Performed By: #### E SR, CBC, HEPATIC, CREAT #### [facility] [address] Cepheid COVID PCR Positiveon 06-01-2023 SARS-CoV-2 (COVID-19) RNA NANCY+probe Ql (Unsp spec) Positive Critically abnormal Negative [facility] Comment on above: Result Comment: This is a duplicate Piece of Cakeid Xpert Xpress CoV-2/Flu/RSV Plus RNA by RT-PCR result to be used for statistical tracking purpose only. PERFORMED BY: [place] [address] PATHOLOGIST CROSSBAR SWITCH ADJUSTER TAMERA DAO M.D. Performed By: #### E SR, CBC, HEPATIC, CREAT #### [address] XR chest 2V*on 06-01-2023 XR chest 2V* [facility] [place] [address] [place] [address] XRay Report Signed Patient: Felicity Phillips MR#: [id number] [birth year] : 1965 Acct:[id number] Age/Sex: 57 / F ADM Date: 05/31/23 Loc: ER Room: Type: [facility] ER Attending Dr: Copies to: Stef Molina [...] Sally Colón M.D.06/01/2023 7:21 AM Dictation Location: [place] [address] Transcribed By: [facility] 06/01/23720 Dictated By: Sally Colón MD 06/01/23719 Signed By: 06/01/23720 Normal [facility] COVID CepheidOrdered By: Kory Molina on 05-31-2023 SARS-CoV-2 (COVID-19) Ab IA Ql Positive Negative [facility] Comment on above: This is a duplicate Foody Xpert Xpress CoV-2/Flu/RSV Plus RNA by RT-PCR result to be used for statistical tracking purpose only. SARS-CoV-2 (COVID-19) RNA NANCY+probe Ql (Unsp spec) [facility] Alanine aminotransferase [En zymatic activity/volume] in Serum or PlasmaOrdered By: Kyle Calderon on 04-28-2023 ALT [Catalytic activity/Vol] 58 U/L 7-52 [facility] Albumin [Mass/volume] in Ser um or Plasma by Bromocresol green (BCG) dye binding methoOrdered By: Kyel Calderon on 04-28-2023 Albumin BCG dye [Mass/Vol] 4.2 g/dL 3.5-5.7 [facility] Alkaline phosphatase [Enzyma tic activity/volume] in Serum or PlasmaOrdered By: Kyle Calderon on 04-28-2023 ALP [Catalytic activity/Vol] 102 U/L 34-104 [facility] Aspartate aminotransferase [ Enzymatic activity/volume] in Serum or PlasmaOrdered By: Kyle Calderon on 04-28-2023 AST [Catalytic activity/Vol] 53 U/L 13-39 [facility] Basophils Auto (Bld) [#/Vol] Ordered By: Kyle Calderon on 04-28-2023 Basophils (Bld) [#/Vol] 0.1 10*3/uL 0.0-0.2 [facility] Basophils/100 WBC Auto (Bld) Ordered By: Kyle Calderon on 04-28-2023 Basophils/100 WBC (Bld) 1.3 % . [facility] Bilirubin.direct [Mass/volum e] in Serum or PlasmaOrdered By: Kyle Calderon on 04-28-2023 Bilirubin.direct [Mass/Vol] 0.10 mg/dL 0.03-0.18 [facility] Bilirubin.total [Mass/volume ] in Serum or PlasmaOrdered By: Kyle Calderon on 04-28-2023 Bilirubin [Mass/Vol] 0.8 mg/dL 0.3-1.0 [facility] Complete Blood Count Auto Di ffon 04-28-2023 Basophils (Bld) [#/Vol] 0.1 10*3/uL Normal 0.0-0.2 [facility] Comment on above: Performed By: #### E SR, CBC, HEPATIC, CREAT #### [address] Basophils/100 WBC (Bld) 1.3 % Normal . [facility] Comment on above: Performed By: #### E SR, CBC, HEPATIC, CREAT #### [facility] [address] [place] [address] Eosinophils (Bld) [#/Vol] 0.2 10*3/uL Normal 0.0-0.45 [facility] Comment on above: Performed By: #### E SR, CBC, HEPATIC, CREAT #### [address] Eosinophils/100 WBC (Bld) 3.2 % Normal . [facility] Comment on above: Performed By: #### E SR, CBC, HEPATIC, CREAT #### [address] Erythrocyte distribution width (RBC) [Ratio] 13.5 % Normal 11.9-15.3 [facility] Comment on above: Performed By: #### E SR, CBC, HEPATIC, CREAT #### [address] Hematocrit (Bld) [Volume fraction] 36.5 % Normal 34.0-46.4 [facility] Comment on above: Performed By: #### E SR, CBC, HEPATIC, CREAT #### [address] Hemoglobin (Bld) [Mass/Vol] 12.3 g/dL Normal 11.8-15.4 [facility] Comment on above: Performed By: #### E SR, CBC, HEPATIC, CREAT #### [address] Lymphocytes (Bld) [#/Vol] 1.5 10*3/uL Normal 1.00-4.8 [facility] Comment on above: Performed By: #### E SR, CBC, HEPATIC, CREAT #### [address] Lymphocytes/100 WBC (Bld) 20.3 % Normal . [facility] Comment on above: Performed By: #### E SR, CBC, HEPATIC, CREAT #### [address] MCH (RBC) [Entitic mass] 31.2 pg Normal 24.7-34.3 [facility] Comment on above: Performed By: #### E SR, CBC, HEPATIC, CREAT #### [address] MCV (RBC) [Entitic vol] 92.2 fL Normal 80-100 [facility] Comment on above: Performed By: #### E SR, CBC, HEPATIC, CREAT #### [address] Mean Corpuscular HGB Conc 33.8 g/dL Normal 32.0-35.0 [facility] Comment on above: Performed By: #### E SR, CBC, HEPATIC, CREAT #### [address] Monocytes (Bld) [#/Vol] 0.6 10*3/uL Normal 0.0-0.8 [facility] Comment on above: Performed By: #### E SR, CBC, HEPATIC, CREAT #### [address] Monocytes/100 WBC (Bld) 9.0 % Normal . [facility] Comment on above: Performed By: #### E SR, CBC, HEPATIC, CREAT #### [address] Neutrophils (Bld) [#/Vol] 4.8 10*3/uL Normal 1.8-7.7 [facility] Comment on above: Performed By: #### E SR, CBC, HEPATIC, CREAT #### [address] Neutrophils/100 WBC (Bld) 66.2 % Normal . [facility] Comment on above: Performed By: #### E SR, CBC, HEPATIC, CREAT #### [facility] [address] [place] [address] NRBC% 0.1 /100{WBC} Normal 0-0.5 [facility] Comment on above: Performed By: #### E SR, CBC, HEPATIC, CREAT #### [address] Platelet mean volume (Bld) [Entitic vol] 8.7 fL Normal 6.3-10.7 [facility] Comment on above: Performed By: #### E SR, CBC, HEPATIC, CREAT #### [address] Platelets (Bld) [#/Vol] 202 10*3/uL Normal 150-450 [facility] Comment on above: Performed By: #### E SR, CBC, HEPATIC, CREAT #### [address] RBC (Bld) [#/Vol] 3.96 10*6/uL Normal 3.60-5.00 [facility] Comment on above: Performed By: #### E SR, CBC, HEPATIC, CREAT #### [address] WBC (Bld) [#/Vol] 7.2 10*3/uL Normal 3.8-11.6 [facility] Comment on above: Performed By: #### E SR, CBC, HEPATIC, CREAT #### [address] Creatinineon 04-28-2023 Creatinine [Mass/Vol] 0.70 mg/dL Normal 0.60-1.20 [facility] Comment on above: Performed By: #### E SR, CBC, HEPATIC, CREAT #### [address] GFR/1.73 sq M.predicted MDRD (S/P/Bld) [Vol rate/Area] mL/min/{1.73_m2} Normal [facility] Comment on above: Result Comment: PERF ORMED BY: [place] [address] PATHOLOGIST CROSSBAR SWITCH ADJUSTER TAMERA DAO M.D. Performed By: #### E SR, CBC, HEPATIC, CREAT #### [facility] [address] [place], [place] [id number] [facility] Creatinine [Mass/volume] in Serum or PlasmaOrdered By: Kyle Calderon on 04-28-2023 Creatinine [Mass/Vol] 0.70 mg/dL 0.60-1.20 [facility] Eosinophils Auto (Bld) [#/Vo l]Ordered By: Kyle Calderon on 04-28-2023 Eosinophils (Bld) [#/Vol] 0.2 10*3/uL 0.0-0.45 [facility] Eosinophils/100 WBC Auto (Bl d)Ordered By: Kyle Calderon on 04-28-2023 Eosinophils/100 WBC (Bld) 3.2 % . [facility] Erythrocyte Sedimentation Ra moon 04-28-2023 ESR (Bld) [Velocity] 24 mm/h Normal 0-29 [facility] Comment on above: Result Comment: PERF ORMED BY: [place] [address] PATHOLOGIST CROSSBAR SWITCH ADJUSTER TAMERA DAO M.D. Performed By: #### E SR, CBC, HEPATIC, CREAT #### [facility] [address] [place], [place] [id number] [facility] Erythrocyte distribution wid th Auto (RBC) [Ratio]Ordered By: Kyle Calderon on 04-28-2023 Erythrocyte distribution width (RBC) [Ratio] 13.5 % 11.9-15.3 [facility] Erythrocyte sedimentation ra te by Photometric methodOrdered By: Kyle Calderon on 04-28-2023 ESR Photometric method (Bld) [Velocity] 24 mm/hr 0-29 [facility] Globulin Calc (S) [Mass/Vol] Ordered By: Kyle Calderon on 04-28-2023 Globulin (S) [Mass/Vol] 1.9 g/dL [facility] Hematocrit Auto (Bld) [Volum e fraction]Ordered By: Kyle Calderon on 04-28-2023 Hematocrit (Bld) [Volume fraction] 36.5 % 34.0-46.4 [facility] Hemoglobin [Mass/volume] in BloodOrdered By: Kyle Calderon on 04-28-2023 Hemoglobin (Bld) [Mass/Vol] 12.3 g/dL 11.8-15.4 [facility] Hepatic Panelon 04-28-2023 Albumin [Mass/Vol] 4.2 g/dL Normal 3.5-5.7 [facility] Comment on above: Performed By: #### E SR, CBC, HEPATIC, CREAT #### [facility] [address] [place] [address] Albumin/Globulin [Mass ratio] 2.2 {ratio} Normal [facility] Comment on above: Performed By: #### E SR, CBC, HEPATIC, CREAT #### [facility] [address] ALP [Catalytic activity/Vol] 102 U/L Normal 34-104 [facility] Comment on above: Performed By: #### E SR, CBC, HEPATIC, CREAT #### [facility] [address] [place] [address] ALT [Catalytic activity/Vol] 58 U/L High 7-52 [facility] Comment on above: Performed By: #### E SR, CBC, HEPATIC, CREAT #### [facility] [address] [place] [id number] [place] AST [Catalytic activity/Vol] 53 U/L High 13-39 [facility] Comment on above: Performed By: #### E SR, CBC, HEPATIC, CREAT #### [facility] [address] [place] [address] [place] Bilirubin [Mass/Vol] 0.8 mg/dL Normal 0.3-1.0 [facility] Comment on above: Performed By: #### E SR, CBC, HEPATIC, CREAT #### [facility] [address] Bilirubin,Indirect 0.7 mg/dL Normal [facility] Comment on above: Performed By: #### E SR, CBC, HEPATIC, CREAT #### [facility] [address] Bilirubin.indirect [Mass/Vol] 0.10 mg/dL Normal 0.03-0.18 [facility] Comment on above: Performed By: #### E SR, CBC, HEPATIC, CREAT #### [facility] [address] Globulin (S) [Mass/Vol] 1.9 g/dL Normal [facility] Comment on above: Performed By: #### E SR, CBC, HEPATIC, CREAT #### [facility] [address] Protein [Mass/Vol] 6.1 g/dL Low 6.4-8.9 [facility] Comment on above: Performed By: #### E SR, CBC, HEPATIC, CREAT #### [facility] [address] [place] [address] Leukocytes [#/volume] correc edd for nucleated erythrocytes in Blood by Automated counOrdered By: Kyle Calderon on 04-28-2023 WBC corrected for nucl RBC Auto (Bld) [#/Vol] 7.2 10*3/uL 3.8-11.6 [facility] Lymphocytes Auto (Bld) [#/Vo l]Ordered By: Kyle Calderon on 04-28-2023 Lymphocytes (Bld) [#/Vol] 1.5 10*3/uL 1.00-4.8 [facility] Lymphocytes/100 WBC Auto (Bl d)Ordered By: Kyle Calderon on 04-28-2023 Lymphocytes/100 WBC (Bld) 20.3 % . [facility] MCH Auto (RBC) [Entitic mass ]Ordered By: Kyle Calderon on 04-28-2023 MCH (RBC) [Entitic mass] 31.2 pg 24.7-34.3 [facility] MCHC Auto (RBC) [Mass/Vol]Or dered By: Kyle Calderon on 04-28-2023 MCHC (RBC) [Mass/Vol] 33.8 g/dL 32.0-35.0 [facility] MCV Auto (RBC) [Entitic vol] Ordered By: Kyle Calderon on 04-28-2023 MCV (RBC) [Entitic vol] 92.2 fL 80-100 [facility] Monocytes Auto (Bld) [#/Vol] Ordered By: Kyle Calderon on 04-28-2023 Monocytes (Bld) [#/Vol] 0.6 10*3/uL 0.0-0.8 [facility] Monocytes/100 WBC Auto (Bld) Ordered By: Kyle Calderon on 04-28-2023 Monocytes/100 WBC (Bld) 9.0 % . [facility] Neutrophils Auto (Bld) [#/Vo l]Ordered By: Kyle Calderon on 04-28-2023 Neutrophils (Bld) [#/Vol] 4.8 10*3/uL 1.8-7.7 [facility] Neutrophils/100 WBC Auto (Bl d)Ordered By: Kyle Calderon on 04-28-2023 Neutrophils/100 WBC (Bld) 66.2 % . [facility] No Panel InformationOrdered By: Kyle Calderon on 04-28-2023 Estimated GFR (CKD-EPI) > 60.0 mL/Min [facility] Creatinine Clearance (Chem N/A [facility] Nucleated erythrocytes [Pres ence] in Blood by Automated countOrdered By: Kyle Calderon on 04-28-2023 Nucleated RBC Auto Ql (Bld) 0.1 /100{WBC} 0-0.5 [facility] Platelet mean volume Auto (B ld) [Entitic vol]Ordered By: Kyle Calderon on 04-28-2023 Platelet mean volume (Bld) [Entitic vol] 8.7 fL 6.3-10.7 [facility] Platelets Auto (Bld) [#/Vol] Ordered By: Kyle Calderon on 04-28-2023 Platelets (Bld) [#/Vol] 202 10*3/uL 150-450 [facility] Protein [Mass/volume] in Ser um or PlasmaOrdered By: Kyle Calderon on 04-28-2023 Protein [Mass/Vol] 6.1 g/dL 6.4-8.9 [facility] RBC Auto (Bld) [#/Vol]Ordere d By: Kyle Calderon on 04-28-2023 RBC (Bld) [#/Vol] 3.96 10*6/uL 3.60-5.00 [facility] Serum or plasma albumin/glob ulin mass ratioOrdered By: Kyle Calderon on 04-28-2023 Albumin/Globulin [Mass ratio] 2.2 {ratio} [facility] Serum or plasma non-glucuron idated bilirubin measurement (mass/volume)Ordered By: Kyle Calderon on 04-28-2023 Bilirubin.indirect [Mass/Vol] 0.7 mg/dL [facility] WBC Auto (Bld) [#/Vol]Ordere d By: Kyle Calderon on 04-28-2023 WBC (Bld) [#/Vol] 7.2 10*3/uL 3.8-11.6 [facility] Consent for Treatmenton 02-15 Consent for Treatment [id number]:[address] [facility] Discharge Instructionson Discharge Instructions [id number] .[id number]:[address] [facility] ED Clinical Summaryon 2022 ED Clinical Summary [place] [address] ED Clinical Summary Person Information Name: FELICITY PHILLIPS/[facility] Age: 57 Years : 1965 Sex: Female Language: Estonian PCP: Jose Antonio Garza MD Marital Status: [...] 02/24/2023 13:18:12 02/24/2023 13:18:12 02/24/2023 13:18:12 ADDRESS: [address] [place] [id number] PHYS DOC NOTES: MEDICAL INFORMATION: Prescriptions Given: New Medications [facility], [address] [facility] [place], [place] [id number], [phone] cephalexin (Keflex 500 mg Cap) 1 Capsules [...] up: With: Address: When: Jose Antonio Garza [address] [place] [address], [address] [place] [id number] Business (1) In 3 days 02/27/2023 DIAGNOSIS: Abscess; Cellulitis Normal [facility] ED Note-Physicianon 02-25-20 ED Note-Physician Basic Information [...] days, # 30 cap(s), Refills(s) 0, [facility], [facility], cm, 02/24/23 12:00:00 EDT, Height/Length Dosing, 108.2, kg, 02/24/23 12:00:00 EDT, Weight Dosing doxycycline, 100 mg = 1 tab(s), Oral, BID, X 10 day(s), # 20 tab(s), Refills(s) 0, [facility], 155, cm, 02/24/23 12:00:00 EDT, [...] Garza In 3 days 02/27/2023 EDT [address] [facility] [place] [id number] Business (1) Additional Instructions: Patient Education Skin Abscess Cellulitis, Adult Attestation Patient seen and evaluated by the physician apartment community assistant manager. Attending physician was present in the emergency department and supervised care. This visit was performed by both the physician and an APC. I performed all aspects of the MDM as documented. This report was transcribed using voice recognition software. Every effort was made to ensure accuracy, however, inadvertently computerized travel consultant mistakes may be present. Appropriate healthcare PPE [...] Keflex 5 (more content not included)... Normal [facility] Comment on above: Result Comment: Elec tronically Signed By: Itz MOTA, Rodrick\.br\Date and Time Signed: 02/24/23 13:15 EDT\.br\Electronically Co-Signed [...] these instructions at home: Medicines ? Take kiem-rwi-aaygnej and prescription medicines only as told by [...] and water are not available, use hand health care marketing specialist. ? Check your abscess every day for [...] care pro (more content not included)... Normal [facility] ED Patient Summaryon 023 ED Patient Summary [address] [address] Patient Discharge Instructions Person Information Name: FELICITY PHILLIPS Age: 57 Years Arrival Date: 02/24/2023 11:52:40 Discharge Diagnosis: Abscess; Cellulitis Primary Care Physician: Jose Antonio Garza MD Provider Information Primary Provider: Briana Winters M.D. [employer] Operator:Rodrick Mobley PA-C The exam and treatment you received in the Emergency Department were for an urgent problem and are not intended as complete care. It is important that you follow up with a doctor, nurse practitioner, or physician?s apartment community assistant manager for ongoing care. If your symptoms become worse or you do not improve as expected and you are unable to reach your usual health care provider, you should return to the Emergency Department. We are available 24 hours a day. FELICITY PHILLIPS has been given the following list of patient education materials, prescriptions and follow-up instructions: Follow-up Instructions: With: Address: When: Jose Antonio Garza [address] [place] [address], [place] [address] Business (1) In 3 days 02/27/2023 In the event that this physician does not participate in your insurance network, please consult with your insurance company to find a nearby participating provider. Patient Education Materials: Skin Abscess; Cellulitis, Adult A MESSAGE TO ALL PATIENTS REGARDING OPIOIDS PRESCRIPTION OPIOIDS: WHAT YOU NEED TO KNOW Prescription opioids can be used to help relieve wyqoapjk-zg-tnhpek pain and are often prescribed following a [...] be struggling with addiction, tell your health administrator health care facility and ask for guidance or call [facility]?S National Helpline at 4-057-397-MIGX. (more content not included)... Normal [facility] Alanine aminotransferase [En zymatic activity/volume] in Serum or PlasmaOrdered By: Kyle Calderon on 01-05-2023 ALT [Catalytic activity/Vol] 41 U/L 7-52 [facility] Albumin [Mass/volume] in Ser um or Plasma by Bromocresol green (BCG) dye binding methoOrdered By: Kyle Calderon on 01-05-2023 Albumin BCG dye [Mass/Vol] 4.4 g/dL 3.5-5.7 [facility] Alkaline phosphatase [Enzyma tic activity/volume] in Serum or PlasmaOrdered By: Kyle Calderon on 01-05-2023 ALP [Catalytic activity/Vol] 93 U/L 34-104 [facility] Anisocytosis LM Ql (Bld)Orde red By: Kyle Calderon on 01-05-2023 Anisocytosis Ql (Bld) Slight [facility] Aspartate aminotransferase [ Enzymatic activity/volume] in Serum or PlasmaOrdered By: Kyle Calderon on 01-05-2023 AST [Catalytic activity/Vol] 19 U/L 13-39 [facility] Band form neutrophils/100 WB C Manual cnt (Bld)Ordered By: Kyel Calderon on 01-05-2023 Band form neutrophils/100 WBC (Bld) 1 % 0-5 [facility] Basophils Auto (Bld) [#/Vol] Ordered By: Kyle Calderon on 01-05-2023 Basophils (Bld) [#/Vol] N/A [facility] Basophils/100 WBC Auto (Bld) Ordered By: Kyle Calderon on 01-05-2023 Basophils/100 WBC (Bld) N/A [facility] Basophils/100 WBC Manual cnt (Bld)Ordered By: Kyle Calderon on 01-05-2023 Basophils/100 WBC (Bld) 0 % 0-2 [facility] Bilirubin.direct [Mass/volum e] in Serum or PlasmaOrdered By: Kyle Calderon on 01-05-2023 Bilirubin.direct [Mass/Vol] 0.10 mg/dL 0.03-0.18 [facility] Bilirubin.total [Mass/volume ] in Serum or PlasmaOrdered By: Kyle Calderon on 01-05-2023 Bilirubin [Mass/Vol] 0.6 mg/dL 0.3-1.0 [facility] Creatinineon 01-05-2023 Creatinine [Mass/Vol] 0.85 mg/dL Normal 0.60-1.20 [facility] Comment on above: Performed By: #### E SR, CBC, HEPATIC, CREAT #### [facility] [address] GFR/1.73 sq M.predicted MDRD (S/P/Bld) [Vol rate/Area] mL/min/{1.73_m2} Normal [facility] Comment on above: Result Comment: PERF ORMED BY: [facility] [address] [place] [address] PATHOLOGIST CROSSBAR SWITCH ADJUSTER TAMERA DAO M.D. Performed By: #### E SR, CBC, HEPATIC, CREAT #### [facility] [address] Creatinine [Mass/volume] in Serum or PlasmaOrdered By: Kyle Calderon on 01-05-2023 Creatinine [Mass/Vol] 0.85 mg/dL 0.60-1.20 [facility] Diff and CBCon 01-05-2023 Anisocytosis Ql (Bld) Slight Normal [facility] Comment on above: Performed By: #### E SR, CBC, HEPATIC, CREAT #### [facility] [address] [place] [address] [place] Band form neutrophils/100 WBC (Bld) 1 % Normal 0-5 [facility] Comment on above: Performed By: #### E SR, CBC, HEPATIC, CREAT #### [facility] [address] [place] [address] [place] Basophils/100 WBC (Bld) 0 % Normal 0-2 [facility] Comment on above: Performed By: #### E SR, CBC, HEPATIC, CREAT #### [facility] [address] [place] [address] Eosinophils/100 WBC (Bld) 4 % High 1-3 [facility] Comment on above: Performed By: #### E SR, CBC, HEPATIC, CREAT #### [facility] [address] [place] [address] Erythrocyte distribution width (RBC) [Ratio] 15.0 % Normal 11.9-15.3 [facility] Comment on above: Performed By: #### E SR, CBC, HEPATIC, CREAT #### [facility] [address] [place] [address] Hematocrit (Bld) [Volume fraction] 35.4 % Normal 34.0-46.4 [facility] Comment on above: Performed By: #### E SR, CBC, HEPATIC, CREAT #### [facility] [address] [place] [address] Hemoglobin (Bld) [Mass/Vol] 12.1 g/dL Normal 11.8-15.4 [facility] Comment on above: Performed By: #### E SR, CBC, HEPATIC, CREAT #### [facility] [address] [place] [address] [place] Lymphocytes/100 WBC (Bld) 13 % Low 18-42 [facility] Comment on above: Performed By: #### E SR, CBC, HEPATIC, CREAT #### [facility] [address] [place] [address] MCH (RBC) [Entitic mass] 31.7 pg Normal 24.7-34.3 [facility] Comment on above: Performed By: #### E SR, CBC, HEPATIC, CREAT #### [facility] [address] [place] [address] MCV (RBC) [Entitic vol] 92.6 fL Normal 80-100 [facility] Comment on above: Performed By: #### E SR, CBC, HEPATIC, CREAT #### [address] Mean Corpuscular HGB Conc 34.2 g/dL Normal 32.0-35.0 [facility] Comment on above: Performed By: #### E SR, CBC, HEPATIC, CREAT #### [address] Metamyelocytes 1 % High 0-0 [facility] Comment on above: Performed By: #### E SR, CBC, HEPATIC, CREAT #### [facility] [address] [place] [address] Microcytosis Slight Normal [facility] Comment on above: Performed By: #### E SR, CBC, HEPATIC, CREAT #### [address] Monocytes/100 WBC (Bld) 6 % Normal 2-11 [facility] Comment on above: Performed By: #### E SR, CBC, HEPATIC, CREAT #### [address] Myelocytes 1 % High 0-0 [facility] Comment on above: Performed By: #### E SR, CBC, HEPATIC, CREAT #### [facility] [address] [place] [address] Platelet Estimate Normal Normal Normal [facility] Comment on above: Performed By: #### E SR, CBC, HEPATIC, CREAT #### [facility] [address] [place] [address] Platelet mean volume (Bld) [Entitic vol] 8.3 fL Normal 6.3-10.7 [facility] Comment on above: Performed By: #### E SR, CBC, HEPATIC, CREAT #### [facility] [address] Platelet Morphology Normal Normal Normal [facility] Comment on above: Performed By: #### E SR, CBC, HEPATIC, CREAT #### [facility] [address] Platelets (Bld) [#/Vol] 204 10*3/uL Normal 150-450 [facility] Comment on above: Performed By: #### E SR, CBC, HEPATIC, CREAT #### [facility] [address] [place] [address] Polychromasia Slight Normal [facility] Comment on above: Performed By: #### E SR, CBC, HEPATIC, CREAT #### [facility] [address] [place] [address] RBC (Bld) [#/Vol] 3.82 10*6/uL Normal 3.60-5.00 [facility] Comment on above: Performed By: #### E SR, CBC, HEPATIC, CREAT #### [facility] [address] [place] [address] Segmented neutrophils/100 WBC (Bld) 74 % High 50-70 [facility] Comment on above: Performed By: #### E SR, CBC, HEPATIC, CREAT #### [facility] [address] [place] [address] WBC (Bld) [#/Vol] 10.8 10*3/uL Normal 3.8-11.6 [facility] Comment on above: Performed By: #### E SR, CBC, HEPATIC, CREAT #### [facility] [address] [place] [address] [place] Eosinophils Auto (Bld) [#/Vo l]Ordered By: Kyle Calderon on 01-05-2023 Eosinophils (Bld) [#/Vol] N/A [facility] Eosinophils/100 WBC Auto (Bl d)Ordered By: Kyle Calderon on 01-05-2023 Eosinophils/100 WBC (Bld) N/A [facility] Eosinophils/100 WBC Manual c nt (Bld)Ordered By: Kyle Calderon on 01-05-2023 Eosinophils/100 WBC (Bld) 4 % 1-3 [facility] Erythrocyte Sedimentation Ra moon 01-05-2023 ESR (Bld) [Velocity] 17 mm/h Normal 0-29 [facility] Comment on above: Result Comment: PERF ORMED BY: [facility] [address] [place] [address] PATHOLOGIST CROSSBAR SWITCH ADJUSTER TAMERA DAO M.D. Performed By: #### E SR, CBC, HEPATIC, CREAT #### [facility] [address] Erythrocyte distribution wid th Auto (RBC) [Ratio]Ordered By: Kyle Calderon on 01-05-2023 Erythrocyte distribution width (RBC) [Ratio] 15.0 % 11.9-15.3 [facility] Erythrocyte sedimentation ra te by Photometric methodOrdered By: Kyle Calderon on 01-05-2023 ESR Photometric method (Bld) [Velocity] 17 mm/hr 0-29 [facility] Globulin Calc (S) [Mass/Vol] Ordered By: Kyle Calderon on 01-05-2023 Globulin (S) [Mass/Vol] 2.2 g/dL [facility] Hematocrit Auto (Bld) [Volum e fraction]Ordered By: Kyle Calderon on 01-05-2023 Hematocrit (Bld) [Volume fraction] 35.4 % 34.0-46.4 [facility] Hemoglobin [Mass/volume] in BloodOrdered By: Kyle Calderon on 01-05-2023 Hemoglobin (Bld) [Mass/Vol] 12.1 g/dL 11.8-15.4 [facility] Hepatic Panelon 01-05-2023 Albumin [Mass/Vol] 4.4 g/dL Normal 3.5-5.7 [facility] Comment on above: Performed By: #### C REAT, HEPATIC, DIFF CBC, ESR #### [facility] [address] Albumin/Globulin [Mass ratio] 2.0 {ratio} Normal [facility] Comment on above: Performed By: #### C REAT, HEPATIC, DIFF CBC, ESR #### [facility] [address] [place] [address] [place] ALP [Catalytic activity/Vol] 93 U/L Normal 34-104 [facility] Comment on above: Performed By: #### C REAT, HEPATIC, DIFF CBC, ESR #### [facility] [address] [place] [address] [place] ALT [Catalytic activity/Vol] 41 U/L Normal 7-52 [facility] Comment on above: Performed By: #### C REAT, HEPATIC, DIFF CBC, ESR #### [facility] [address] [place] [id number] [place] AST [Catalytic activity/Vol] 19 U/L Normal 13-39 [facility] Comment on above: Performed By: #### C REAT, HEPATIC, DIFF CBC, ESR #### [facility] [address] [place] [id number] [place] Bilirubin [Mass/Vol] 0.6 mg/dL Normal 0.3-1.0 [facility] Comment on above: Performed By: #### C REAT, HEPATIC, DIFF CBC, ESR #### [facility] [address] [place] [address] [place] Bilirubin,Indirect 0.5 mg/dL Normal [facility] Comment on above: Performed By: #### C REAT, HEPATIC, DIFF CBC, ESR #### [facility] [address] [place] [id number] [place] Bilirubin.indirect [Mass/Vol] 0.10 mg/dL Normal 0.03-0.18 [facility] Comment on above: Performed By: #### C REAT, HEPATIC, DIFF CBC, ESR #### [facility] [address] [place] [phone] [place] Globulin (S) [Mass/Vol] 2.2 g/dL Normal [facility] Comment on above: Performed By: #### C REAT, HEPATIC, DIFF CBC, ESR #### [facility] [address] [place] [phone] [place] Protein [Mass/Vol] 6.6 g/dL Normal 6.4-8.9 [facility] Comment on above: Performed By: #### C REAT, HEPATIC, DIFF CBC, ESR #### [facility] [address] Leukocytes [#/volume] correc edd for nucleated erythrocytes in Blood by Automated counOrdered By: Klye Calderon on 01-05-2023 WBC corrected for nucl RBC Auto (Bld) [#/Vol] 10.8 10*3/uL 3.8-11.6 [facility] Lymphocytes Auto (Bld) [#/Vo l]Ordered By: Kyle Calderon on 01-05-2023 Lymphocytes (Bld) [#/Vol] N/A [facility] Lymphocytes/100 WBC Auto (Bl d)Ordered By: Kyle Calderon on 01-05-2023 Lymphocytes/100 WBC (Bld) N/A [facility] Lymphocytes/100 WBC Manual c nt (Bld)Ordered By: Kyle Calderon on 01-05-2023 Lymphocytes/100 WBC (Bld) 13 % 18-42 [facility] MCH Auto (RBC) [Entitic mass ]Ordered By: Kyle Calderon on 01-05-2023 MCH (RBC) [Entitic mass] 31.7 pg 24.7-34.3 [facility] MCHC Auto (RBC) [Mass/Vol]Or dered By: Kyle Calderon on 01-05-2023 MCHC (RBC) [Mass/Vol] 34.2 g/dL 32.0-35.0 [facility] MCV Auto (RBC) [Entitic vol] Ordered By: Kyle Calderon on 01-05-2023 MCV (RBC) [Entitic vol] 92.6 fL 80-100 [facility] Metamyelocytes/100 WBC Manua l cnt (Bld)Ordered By: Kyle Calderon on 01-05-2023 Metamyelocytes/100 WBC (Bld) 1 % 0-0 [facility] Microcytes LM Ql (Bld)Ordere d By: Kyle Calderon on 01-05-2023 Microcytes Ql (Bld) Slight [facility] Monocytes Auto (Bld) [#/Vol] Ordered By: Kyle Calderon on 01-05-2023 Monocytes (Bld) [#/Vol] N/A [facility] Monocytes/100 WBC Auto (Bld) Ordered By: Kyle Calderon on 01-05-2023 Monocytes/100 WBC (Bld) N/A [facility] Monocytes/100 WBC Manual cnt (Bld)Ordered By: Kyle Calderon on 01-05-2023 Monocytes/100 WBC (Bld) 6 % 2-11 [facility] Myelocytes/100 WBC Manual cn t (Bld)Ordered By: Kyle Calderon on 01-05-2023 Myelocytes/100 WBC (Bld) 1 % 0-0 [facility] Neutrophils Auto (Bld) [#/Vo l]Ordered By: Kyle Calderon on 01-05-2023 Neutrophils (Bld) [#/Vol] N/A [facility] Neutrophils/100 WBC Auto (Bl d)Ordered By: Kyle Calderon on 01-05-2023 Neutrophils/100 WBC (Bld) N/A [facility] No Panel InformationOrdered By: Kyle Calderon on 01-05-2023 Estimated GFR (CKD-EPI) > 60.0 mL/Min [facility] Creatinine Clearance (Chem N/A [facility] Nucleated erythrocytes [Pres ence] in Blood by Automated countOrdered By: Kyle Calderon on 01-05-2023 Nucleated RBC Auto Ql (Bld) N/A [facility] Platelet adequacy [Presence] in Blood by Light microscopyOrdered By: Kyle Calderon on 01-05-2023 Platelets LM Ql (Bld) Normal Normal [facility] Platelet mean volume Auto (B ld) [Entitic vol]Ordered By: Kyle Calderon on 01-05-2023 Platelet mean volume (Bld) [Entitic vol] 8.3 fL 6.3-10.7 [facility] Platelet morphology finding [Identifier] in BloodOrdered By: Kyle Calderon on 01-05-2023 Platelet morphology finding Nom (Bld) Normal Normal [facility] Platelets Auto (Bld) [#/Vol] Ordered By: Kyle Calderon on 01-05-2023 Platelets (Bld) [#/Vol] 204 10*3/uL 150-450 [facility] Polychromasia [Presence] in Blood by Light microscopyOrdered By: Kyle Calderon on 01-05-2023 Polychromasia LM Ql (Bld) Slight [facility] Protein [Mass/volume] in Ser um or PlasmaOrdered By: Kyle Calderon on 01-05-2023 Protein [Mass/Vol] 6.6 g/dL 6.4-8.9 [facility] RBC Auto (Bld) [#/Vol]Ordere d By: Kyle Calderon on 01-05-2023 RBC (Bld) [#/Vol] 3.82 10*6/uL 3.60-5.00 [facility] RBC morphologyOrdered By: Jazmin Calderon on 01-05-2023 RBC morphology finding Nom (Bld) N/A [facility] Segmented neutrophils/100 WB C Manual cnt (Bld)Ordered By: Kyle Calderon on 01-05-2023 Segmented neutrophils/100 WBC (Bld) 74 % 50-70 [facility] Serum or plasma albumin/glob ulin mass ratioOrdered By: Kyle Calderon on 01-05-2023 Albumin/Globulin [Mass ratio] 2.0 {ratio} [facility] Serum or plasma non-glucuron idated bilirubin measurement (mass/volume)Ordered By: Kyle Calderon on 01-05-2023 Bilirubin.indirect [Mass/Vol] 0.5 mg/dL [facility] WBC Auto (Bld) [#/Vol]Ordere d By: Kyle Calderon on 01-05-2023 WBC (Bld) [#/Vol] 10.8 10*3/uL 3.8-11.6 [facility] CT LSPINE WO CONon 3 CT LSPINE [...] by: UNA ELMORE Date: 2022-11-13 09:34 Normal [facility] CT PELVIS WO CONon 3 CT PELVIS [...] by: UNA ELMORE Date: 2022-11-13 09:29 Normal [facility] Alanine aminotransferase [En zymatic activity/volume] in Serum or PlasmaOrdered By: Kyle Calderon on 11-03-2022 ALT [Catalytic activity/Vol] 41 U/L 7-52 [facility] Albumin [Mass/volume] in Ser um or Plasma by Bromocresol green (BCG) dye binding methoOrdered By: Kyle Calderon on 11-03-2022 Albumin BCG dye [Mass/Vol] 4.0 g/dL 3.5-5.7 [facility] Alkaline phosphatase [Enzyma tic activity/volume] in Serum or PlasmaOrdered By: Kyle Calderon on 11-03-2022 ALP [Catalytic activity/Vol] 95 U/L 34-104 [facility] Aspartate aminotransferase [ Enzymatic activity/volume] in Serum or PlasmaOrdered By: Kyle Calderon on 11-03-2022 AST [Catalytic activity/Vol] 17 U/L 13-39 [facility] Basophils Auto (Bld) [#/Vol] Ordered By: Kyle Calderon on 11-03-2022 Basophils (Bld) [#/Vol] 0.1 10*3/uL 0.0-0.2 [facility] Basophils/100 WBC Auto (Bld) Ordered By: Kyle Calderon on 11-03-2022 Basophils/100 WBC (Bld) 0.9 % . [facility] Bilirubin.direct [Mass/volum e] in Serum or PlasmaOrdered By: Kyle Calderon on 11-03-2022 Bilirubin.direct [Mass/Vol] 0.10 mg/dL 0.03-0.18 [facility] Bilirubin.total [Mass/volume ] in Serum or PlasmaOrdered By: Kyle Calderon on 11-03-2022 Bilirubin [Mass/Vol] 0.7 mg/dL 0.3-1.0 [facility] Complete Blood Count Auto Di ffon 11-03-2022 Basophils (Bld) [#/Vol] 0.1 10*3/uL Normal 0.0-0.2 [facility] Comment on above: Performed By: #### H EPATIC, CREAT, CBC, ESR #### [facility] [address] Basophils/100 WBC (Bld) 0.9 % Normal . [facility] [facility] Comment on above: Performed By: #### H EPATIC, CREAT, CBC, ESR #### [address] Eosinophils (Bld) [#/Vol] 0.2 10*3/uL Normal 0.0-0.45 [facility] Comment on above: Performed By: #### H EPATIC, CREAT, CBC, ESR #### [address] Eosinophils/100 WBC (Bld) 1.4 % Normal . [facility] Comment on above: Performed By: #### H EPATIC, CREAT, CBC, ESR #### [address] Erythrocyte distribution width (RBC) [Ratio] 14.6 % Normal 11.9-15.3 [facility] Comment on above: Performed By: #### H EPATIC, CREAT, CBC, ESR #### [address] Hematocrit (Bld) [Volume fraction] 37.2 % Normal 34.0-46.4 [facility] Comment on above: Performed By: #### H EPATIC, CREAT, CBC, ESR #### [address] Hemoglobin (Bld) [Mass/Vol] 12.4 g/dL Normal 11.8-15.4 [facility] Comment on above: Performed By: #### H EPATIC, CREAT, CBC, ESR #### [address] Lymphocytes (Bld) [#/Vol] 1.5 10*3/uL Normal 1.00-4.8 [facility] Comment on above: Performed By: #### H EPATIC, CREAT, CBC, ESR #### [address] Lymphocytes/100 WBC (Bld) 12.4 % Normal . [facility] Comment on above: Performed By: #### H EPATIC, CREAT, CBC, ESR #### [address] [place] [address] [place] MCH (RBC) [Entitic mass] 31.0 pg Normal 24.7-34.3 [facility] Comment on above: Performed By: #### H EPATIC, CREAT, CBC, ESR #### [address] MCV (RBC) [Entitic vol] 93.2 fL Normal 80-100 [facility] Comment on above: Performed By: #### H EPATIC, CREAT, CBC, ESR #### [address] Mean Corpuscular HGB Conc 33.3 g/dL Normal 32.0-35.0 [facility] Comment on above: Performed By: #### H EPATIC, CREAT, CBC, ESR #### [address] Monocytes (Bld) [#/Vol] 0.9 10*3/uL High 0.0-0.8 [facility] Comment on above: Performed By: #### H EPATIC, CREAT, CBC, ESR #### [address] Monocytes/100 WBC (Bld) 7.2 % Normal . [facility] Comment on above: Performed By: #### H EPATIC, CREAT, CBC, ESR #### [address] Neutrophils (Bld) [#/Vol] 9.4 10*3/uL High 1.8-7.7 [facility] Comment on above: Performed By: #### H EPATIC, CREAT, CBC, ESR #### [address] Neutrophils/100 WBC (Bld) 78.1 % Normal . [facility] Comment on above: Performed By: #### H EPATIC, CREAT, CBC, ESR #### [address] NRBC% 0.0 /100{WBC} Normal 0-0.5 [facility] Comment on above: Performed By: #### H EPATIC, CREAT, CBC, ESR #### [address] Platelet mean volume (Bld) [Entitic vol] 8.4 fL Normal 6.3-10.7 [facility] Comment on above: Performed By: #### H EPATIC, CREAT, CBC, ESR #### [address] Platelets (Bld) [#/Vol] 220 10*3/uL Normal 150-450 [facility] Comment on above: Performed By: #### H EPATIC, CREAT, CBC, ESR #### [address] RBC (Bld) [#/Vol] 3.99 10*6/uL Normal 3.60-5.00 [facility] Comment on above: Performed By: #### H EPATIC, CREAT, CBC, ESR #### [address] WBC (Bld) [#/Vol] 12.0 10*3/uL High 3.8-11.6 [facility] Comment on above: Performed By: #### H EPATIC, CREAT, CBC, ESR #### [address] Creatinineon 11-03-2022 Creatinine [Mass/Vol] 0.80 mg/dL Normal 0.60-1.20 [facility] Comment on above: Performed By: #### H EPATIC, CREAT, CBC, ESR #### [address] GFR/1.73 sq M.predicted MDRD (S/P/Bld) [Vol rate/Area] mL/min/{1.73_m2} Normal [facility] Comment on above: Result Comment: PERF ORMED BY: [place] [address] PATHOLOGIST [employer] TAMERA DAO M.D. Performed By: #### H CLEOPATRA, CREAT, CBC, ESR #### [facility] [address] Creatinine [Mass/volume] in Serum or PlasmaOrdered By: Kyle Calderon on 11-03-2022 Creatinine [Mass/Vol] 0.80 mg/dL 0.60-1.20 [facility] Eosinophils Auto (Bld) [#/Vo l]Ordered By: Kyle Calderon on 11-03-2022 Eosinophils (Bld) [#/Vol] 0.2 10*3/uL 0.0-0.45 [facility] Eosinophils/100 WBC Auto (Bl d)Ordered By: Kyle Calderon on 11-03-2022 Eosinophils/100 WBC (Bld) 1.4 % . [facility] Erythrocyte Sedimentation Ra moon 11-03-2022 ESR (Bld) [Velocity] 12 mm/h Normal 0-29 [facility] Comment on above: Result Comment: PERF ORMED BY: [place] [address] PATHOLOGIST [employer] TAMERA DAO M.D. Performed By: #### H EPATIC, CREAT, CBC, ESR #### [facility] [address] Erythrocyte distribution wid th Auto (RBC) [Ratio]Ordered By: Kyle Calderon on 11-03-2022 Erythrocyte distribution width (RBC) [Ratio] 14.6 % 11.9-15.3 [facility] Erythrocyte sedimentation ra te by Photometric methodOrdered By: Kyle Calderon on 11-03-2022 ESR Photometric method (Bld) [Velocity] 12 mm/hr 0-29 [facility] Globulin Calc (S) [Mass/Vol] Ordered By: Kyle Calderon on 11-03-2022 Globulin (S) [Mass/Vol] 2.2 g/dL [facility] Hematocrit Auto (Bld) [Volum e fraction]Ordered By: Kyle Calderon on 11-03-2022 Hematocrit (Bld) [Volume fraction] 37.2 % 34.0-46.4 [facility] Hemoglobin [Mass/volume] in BloodOrdered By: Kyle Calderon on 11-03-2022 Hemoglobin (Bld) [Mass/Vol] 12.4 g/dL 11.8-15.4 [facility] Hepatic Panelon 11-03-2022 Albumin [Mass/Vol] 4.0 g/dL Normal 3.5-5.7 [facility] Comment on above: Performed By: #### H EPATIC, CREAT, CBC, ESR #### [facility] [address] Albumin/Globulin [Mass ratio] 1.8 {ratio} Normal [facility] Comment on above: Performed By: #### H EPATIC, CREAT, CBC, ESR #### [facility] [address] ALP [Catalytic activity/Vol] 95 U/L Normal 34-104 [facility] Comment on above: Performed By: #### H EPATIC, CREAT, CBC, ESR #### [facility] [address] ALT [Catalytic activity/Vol] 41 U/L Normal 7-52 [facility] Comment on above: Performed By: #### H EPATIC, CREAT, CBC, ESR #### [facility] [address] AST [Catalytic activity/Vol] 17 U/L Normal 13-39 [facility] Comment on above: Performed By: #### H EPATIC, CREAT, CBC, ESR #### [facility] [address] Bilirubin [Mass/Vol] 0.7 mg/dL Normal 0.3-1.0 [facility] Comment on above: Performed By: #### H EPATIC, CREAT, CBC, ESR #### [facility] [address] Bilirubin,Indirect 0.6 mg/dL Normal [facility] Comment on above: Performed By: #### H EPATIC, CREAT, CBC, ESR #### [facility] [address] Bilirubin.indirect [Mass/Vol] 0.10 mg/dL Normal 0.03-0.18 [facility] Comment on above: Performed By: #### H EPATIC, CREAT, CBC, ESR #### [facility] [address] Globulin (S) [Mass/Vol] 2.2 g/dL Normal [facility] Comment on above: Performed By: #### H EPATIC, CREAT, CBC, ESR #### [facility] [address] Protein [Mass/Vol] 6.2 g/dL Low 6.4-8.9 [facility] Comment on above: Performed By: #### H EPATIC, CREAT, CBC, ESR #### [facility] [address] Leukocytes [#/volume] correc edd for nucleated erythrocytes in Blood by Automated counOrdered By: Kyle Calderon on 11-03-2022 WBC corrected for nucl RBC Auto (Bld) [#/Vol] 12.0 10*3/uL 3.8-11.6 [facility] Lymphocytes Auto (Bld) [#/Vo l]Ordered By: Kyle Calderon on 11-03-2022 Lymphocytes (Bld) [#/Vol] 1.5 10*3/uL 1.00-4.8 [facility] Lymphocytes/100 WBC Auto (Bl d)Ordered By: Kyle Calderon on 11-03-2022 Lymphocytes/100 WBC (Bld) 12.4 % . [facility] MCH Auto (RBC) [Entitic mass ]Ordered By: Kyle Calderon on 11-03-2022 MCH (RBC) [Entitic mass] 31.0 pg 24.7-34.3 [facility] MCHC Auto (RBC) [Mass/Vol]Or dered By: Kyle Calderon on 11-03-2022 MCHC (RBC) [Mass/Vol] 33.3 g/dL 32.0-35.0 [facility] MCV Auto (RBC) [Entitic vol] Ordered By: Kyle Calderon on 11-03-2022 MCV (RBC) [Entitic vol] 93.2 fL 80-100 [facility] Monocytes Auto (Bld) [#/Vol] Ordered By: Kyle Calderon on 11-03-2022 Monocytes (Bld) [#/Vol] 0.9 10*3/uL 0.0-0.8 [facility] Monocytes/100 WBC Auto (Bld) Ordered By: Kyle Calderon on 11-03-2022 Monocytes/100 WBC (Bld) 7.2 % . [facility] Neutrophils Auto (Bld) [#/Vo l]Ordered By: Kyle Calderon on 11-03-2022 Neutrophils (Bld) [#/Vol] 9.4 10*3/uL 1.8-7.7 [facility] Neutrophils/100 WBC Auto (Bl d)Ordered By: Kyle Calderon on 11-03-2022 Neutrophils/100 WBC (Bld) 78.1 % . [facility] No Panel InformationOrdered By: Kyle Calderon on 11-03-2022 Estimated GFR (CKD-EPI) > 60.0 mL/Min [facility] Creatinine Clearance (Chem N/A [facility] Nucleated erythrocytes [Pres ence] in Blood by Automated countOrdered By: Kyle Calderon on 11-03-2022 Nucleated RBC Auto Ql (Bld) 0.0 /100{WBC} 0-0.5 [facility] Platelet mean volume Auto (B ld) [Entitic vol]Ordered By: Kyle Calderon on 11-03-2022 Platelet mean volume (Bld) [Entitic vol] 8.4 fL 6.3-10.7 [facility] Platelets Auto (Bld) [#/Vol] Ordered By: Kyle Calderon on 11-03-2022 Platelets (Bld) [#/Vol] 220 10*3/uL 150-450 [facility] Protein [Mass/volume] in Ser um or PlasmaOrdered By: Kyle Calderon on 11-03-2022 Protein [Mass/Vol] 6.2 g/dL 6.4-8.9 [facility] RBC Auto (Bld) [#/Vol]Ordere d By: Kyle Calderon on 11-03-2022 RBC (Bld) [#/Vol] 3.99 10*6/uL 3.60-5.00 [facility] Serum or plasma albumin/glob ulin mass ratioOrdered By: Kyle Calderon on 11-03-2022 Albumin/Globulin [Mass ratio] 1.8 {ratio} [facility] Serum or plasma non-glucuron idated bilirubin measurement (mass/volume)Ordered By: Kyle Calderon on 11-03-2022 Bilirubin.indirect [Mass/Vol] 0.6 mg/dL [facility] WBC Auto (Bld) [#/Vol]Ordere d By: Kyle Calderon on 11-03-2022 WBC (Bld) [#/Vol] 12.0 10*3/uL 3.8-11.6 [facility] XR pelvis 1-2Von 09-29-2022 XR pelvis 1-2V [facility] [employer] Other XR pelvis 1-2V [facility] [employer] Other XR pelvis 1-2V [address] [place] [address] [employer] Other XR pelvis 1-2[place] [address] [address] [facility] [employer] Other XR pelvis 1-2V XRay Report [employer] Other XR pelvis 1-2V Signed [employer] Other XR pelvis 1-2V Patient: Laly Phillips MR#: [id number] [facility] [employer] Other XR pelvis 1-2V 03 [employer] Other XR pelvis 1-2V : 1965 Acct:[id number] [employer] Other XR pelvis 1-2V Age/Sex: 57 / F ADM Date: 09/29/22 [employer] Other XR pelvis 1-2V Loc: SOXD Room: Type : [facility] [employer] Other XR pelvis 1-2V Attending Dr: Kyle Call II, MD [employer] Other XR pelvis 1-2V Copies to: Kyle Call MD [employer] Other XR pelvis 1-2V Ordering Provider: Kyle Call MD [employer] Other XR pelvis 1-2V Date of Service: 09/29/22 [employer] Other XR pelvis 1-2V XR/XR pelvis 1-2V: S32.591D [employer] Other XR pelvis 1-2V Pelvis 3 views. [employer] Other XR pelvis 1-2V CLINICAL HISTORY: Right superior/inferior pubic rami fractures [employer] Other XR pelvis 1-2V COMPARISON: Pelvis study 07/07/2022 [employer] Other XR pelvis 1-2V Examination is suboptimal due to body habitus. [employer] Other XR pelvis 1-2V The patient's right-sided pubic rami fractures are less conspicuous when compared to the prior study [employer] Other XR pelvis 1-2V with questionable calculus formation along the inferior pubic ramus fracture suggestive of healing [employer] Other XR pelvis 1-2V response. No change in alignment is seen. No new additional fractures are noted. Mild degenerative [employer] Other XR pelvis 1-2V changes are noted involving the hips and SI joints. [employer] Other XR pelvis 1-2V XR/XR pelvis 1-2V [employer] Other XR pelvis 1-2V IMPRESSION: Prized [facility] [employer] Other XR pelvis 1-2V HEALING PUBIC RAMI FRACTURES. [employer] Other XR pelvis 1-2V Impression dictated by: Kavon Choi Jr., D.OReilly09/29/2022 9:46 AM [employer] Other XR pelvis 1-2V Dictation Location: [place] [address] [employer] Other XR pelvis 1-2V Transcribed By: PWS 09/29/22 0946 [employer] Other XR pelvis 1-2V Dictated By: Kavon Choi Jr, DO 09/29/22 0944 [employer] Other XR pelvis 1-2V Signed By: [employer] Other XR pelvis 1-2V 09/29/22 0946 [employer] Other MR hip RT wo conon 3 MR hip RT wo con [facility] [employer] Other MR hip RT wo con [facility] Main [place] [employer] Other MR hip RT wo con [address] [facility] [employer] [place] [address] [employer] Other MR hip RT wo con MRI Report [employer] Other MR hip RT wo con Signed [employer] Other MR hip RT wo con Patient: Laly Phillips MR#: [id number] [employer] Other MR hip RT wo con 03 [employer] Other MR hip RT wo con : 1965 Acct:[id number] [employer] Other MR hip RT wo con Age/Sex: 57 / F ADM Date: 07/27/22 [employer] Other MR hip RT wo con Loc: ICMR Room: Type : REG CLI [employer] Other MR hip RT wo con Attending Dr: Kyle Call II, MD [employer] Other MR hip RT wo con Copies to: Kyle Call MD [employer] Other MR hip RT wo con Ordering Provider: Kyle Call MD [employer] Other MR hip RT wo con Date of Service: 07/27/22 [employer] Other MR hip RT wo con MR/MR hip RT wo con: S32.591A CLOSED FX RAMUS OF RIGHT PUBUS [employer] Other MR hip RT wo con MRI of the right hip without IV contrast. [employer] Other MR hip RT wo con Reason for exam: History of right inferior pubic ramus fracture. Right hip pain. [employer] Other MR hip RT wo con COMPARISON: Pelvis 07/07/2022 [employer] Other MR hip RT wo con FINDINGS: Minimal joint effusion is seen. There appears to be a fractures involving the right [employer] Other MR hip RT wo con superior and inferio r pubic ramus with associated bone marrow edema. No significant displacement of [employer] Other MR hip RT wo con these fractures are seen. Labrum appears grossly intact. No hip fracture is seen. Muscle groups [employer] Other MR hip RT wo con appear grossly unremarkable. Visualized intrapelvic contents demonstrate no acute findings. [employer] Other MR hip RT wo con MR/MR hip RT wo con [employer] Other MR hip RT wo con IMPRESSION: Nondisplaced fractures involving the right superior and inferior pubic ramus with [employer] Other MR hip RT wo con associated bone marrow edema. [employer] Other MR hip RT wo con Impression dictated by: Kavon Choi Jr., D.OReilly07/27/2022 11:43 AM [employer] Other MR hip RT wo con Dictation Location: [address] [employer] Other MR hip RT wo con Transcribed By: PWS 07/27/[address] [place] [address] [employer] Other MR hip RT wo con Dictated By: Kavon Choi Jr, DO 07/27/22 [facility] [employer] Other MR hip RT wo con Signed By: [employer] [facility] [employer] Other MR hip RT wo con 07/27/22 [facility] hospital [employer] Other XR pelvis 1-2Von 07-07-2022 XR pelvis 1-2V [facility] [employer] Other XR pelvis 1-2V [facility] Main [facility] [employer] Other XR pelvis 1-2V [address] [place] [address] [employer] Other XR pelvis 1-2[place] [address] No rt [employer] Other XR pelvis 1-2V XRay Report [employer] Other XR pelvis 1-2V Signed [employer] Other XR pelvis 1-2V Patient: Laly Phillips MR#: [id number] [facility] [employer] Other XR pelvis 1-2V 03 [employer] Other XR pelvis 1-2V : 1965 Acct:[id number] [employer] Other XR pelvis 1-2V Age/Sex: 57 / F ADM Date: 07/07/22 [employer] Other XR pelvis 1-2V Loc: SOXD [facility]: [facility] [employer] Other XR pelvis 1-2V Attending Dr: Kyle Call II, MD [employer] Other XR pelvis 1-2V Copies to: Kyle Call MD [employer] Other XR pelvis 1-2V Ordering Provider: Kyle Call MD [employer] Other XR pelvis 1-2V Date of Service: 07/07/22 [employer] Other XR pelvis 1-2V XR/XR hip RT min 2V(w/wo pelvis)*: PAIN [employer] Other XR pelvis 1-2V ([id number]) XR/XR pelvis 1-2V: PAIN [employer] Other XR pelvis 1-2V 2 views right hip single view pelvisplain film [employer] Other XR pelvis 1-2V COMPARISON:None [employer] Other XR pelvis 1-2V HISTORY:Status post right pubic rami fracture. Right hip pain [employer] Other XR pelvis 1-2V The nondisplaced right inferior pubic ramus fracture redemonstrated. Bony alignment unchanged. No [employer] Other XR pelvis 1-2V hip fracture. Adequate hip joint space.No significant degeneration. Articular surfaces preserved. [employer] Other XR pelvis 1-2V XR/XR hip RT min 2V(w/wo pelvis)* [employer] Other XR pelvis 1-2V IMPRESSION:Unchanged right inferior pubic ramus fracture. No hip fracture. [employer] Other XR pelvis 1-2V 2 views of the pelvis [employer] Other XR pelvis 1-2V Nondisplaced right inferior pubic ramus fracture identified. No additional fractures seen. No [employer] Other XR pelvis 1-2V diastases of the SI joints. Hip joint space is adequate. No hip fracture. [employer] Other XR pelvis 1-2V IMPRESSION: Nondisplaced right inferior pubic ramus fracture. [employer] Other XR pelvis 1-2V Impression dictated by: Ceasar Angeles M.D.07/07/2022 5:19 PM [employer] Other XR pelvis 1-2V Dictation Location: [place] [address] [employer] Other XR pelvis 1-2V Transcribed By: [facility] 07/07/22 1710 [employer] Other XR pelvis 1-2V Dictated By: Ceasar Angeles DO 07/07/22 1716 [employer] Other XR pelvis 1-2V Signed By: [employer] Other XR pelvis 1-2V 07/07/22 1710 [employer] Other [facility]on 06-17 SARS-CoV-2 (COVID-19) RNA NANCY+probe Ql (Unsp spec) Detected Critically abnormal NOT DETECTED [facility] Comment on above: Result Comment: This test is not yet approved or cleared by the [place] FDA. When there are no FDA-approved or cleared tests available, and other criteria are met, FDA can make tests available under an emergency access mechanism called an Emergency Use Authorization (EUA). The EUA for this test is supported by the [place] of Health and Human Service's (HHS's) declaration [...] longer be used). Performed By: #### C VDTBH #### [facility] [address] [place] [address] Dr. Heather Khan INFLUENZA A AND B AGon 06-30 [facility] SEE BELOW Normal [facility] Comment on above: Result Comment: Nega tive for Flu A protein angiten. Infection due to Flu A cannot be ruled out. Flu A angiten in the sample may be below the detection limit of the test. Performed By: #### I NFLUAB #### [facility] [address] [place] [address] Dr. Heather [facility] Normal [facility] Comment on above: Result Comment: Nega tive for Flu B protein antigen. Infection due to Flu B cannot be ruled out. Flu B antigen in the sample may be below the detection limit of the test. Performed By: #### I NFLUAB #### [facility] [address] [place] [address] Dr. Heather Khan INFLUENZA A AG Negative Normal NEGATIVE SEE COMMENT [facility] Comment on above: Performed By: #### I NFLUAB #### [facility] [address] [place] [address] Dr. Heather Khan INFLUENZA B AG Negative Normal NEGATIVE SEE COMMENT [facility] Comment on above: Performed By: #### I NFLUAB #### [facility] [address] [place] [address] Dr. Heather Khan INTERNAL CONTROLS Within Normal Limits Normal Wi thin Normal Limits [facility] Comment on above: Performed By: #### I NFLUAB #### [facility] [address] [place] [address] Dr. Heather Khan Lab Reportson 05-26-2022 Lab Reports [id number] .00CD:[address] [facility] Ambulatory Visit Summaryon 1 07-25-2021 Ambulatory Visit Summary FELICITY PHILLIPS :1965 Visit Date:05/25/2022 Ambulatory Visit Instructions Your Care Team Attending Physician - DENISSE BRUNNER, Jose Carlos Arias Primary Care Physician - Jose Antonio Garza MD This Is Your Medications List carvedilol (carvedilol [...] no longer receiving treatment for. HTN RA Normal [facility] General Surgery Office/Clini c Noteon 05-25-2022 General [...] Given diphtheria/pertussis, acel/tetanus adult 06/01/[address] [facility] Comment on above: Result Comment: Elec tronically Signed By: DENISSE BRUNNER, Jose Carlos Arias\.br\Date and Time Signed: 05/25/22 14:59 EST Provider Letter FTMCon 05-25 Provider Letter [facility] May 25, 2022 FELICITY PHILLIPS [address] [place] [address] FELICITY PHILLIPS 1965 To Whom It May Concern, Please excuse above patient from work May 18- May 25. May return to work May 26.. Sincerely, Dr. Jose Carlos Madrid MD General Surgery Normal [facility] CULTURE WOUNDon 05-22-2022 CULTURE WOUND Culture Observations [...] F Oxacillin <=0.25 S F Normal [facility] Comment on above: Performed By: #### W OUNDCX #### [facility] [address] [place] [address] Dr. Heather Khan Ambulatory Visit Summaryon 07-19-2021 Ambulatory Visit Summary FELICITY PHILLIPS :1965 Visit Date:05/19/2022 Ambulatory Visit Instructions Your Diagnosis Cutaneous abscess of right axilla BMI 40.0-44.9, adult Your Care Team Attending Physician - DENISSE BRUNNER, Jose Carlos Arias Primary Care Physician - Jose Antonio Garza [...] Follow-Up Appointments Tuesday 2:40 PM EST With: DENISSE BRUNNER, Jose Carlos Arias Where: General Surgery Denisse/Sharmin Byers [facility] Physician Referralon 022 Physician Referral [id number] 1 [id number] .00CD:127 [facility] Coding Summary.on 05-12-2022 Coding Summary. CD:[id number] G h0bWw+PGhlYWQ+HP3WSRK bA84bqJVnpP5BW3pFJH7P MQJJYWHEIZ3XMH4sqEZ9H DzcK6IsyeLn SawbcKHjML39MSu8JRC1v KgzFMscfZ8waKYgV4u0Js IiGP49dO43EMfpVUOvRxS 3LjZpbjsgbWFy U6zcZxZyuBIbVln+PHRhY mxlIHdpZHRoPScxMDAlJy WxeHmmLC0rSr6gPTAoEND vbGxhcHNlOiBj d5bcBOWgDElxXQ7jhDkyW 6IabGJ4OAAdr3o0Pn17vB I+VEXbALQ9sEsvHOvxa20 9DkHec4hrEVY4 nDQyMBaxXXO0H16bm2K2T UHiPWPxDZN8vCB7bC7gtW ahjeyxV4CivMVwFeB8IXE 7uAWgkG8toXxi sbpisN3zEvs+U12OBE6AJ LDEAR0ZJgs8Z9LaUbhtgT I+HY70RTViKW93tMAonEJ du5ohrQd1QmNp RVKxEBP9qCmlDBzia6EhN DEiK81tfGZiq8U4YRRpjO avsSTsDhZwwRN8tE2ySVi mavvnl6pdyjmk Yqidn7qrze23rV48N73wO GplDBJyIPL5GSZcELZrgB yavv3oqO5dVt6+URozx4a wf5drzBe0ToDr FXCibrLqfHriDVI3w7PjK z19K4FdkUfpd9ZoVww6cf 89vABxa9Q4fOH2BPboHIX toT7tXEulAxA1 SWYrZmOipO94zUVpVYtvQ m2esIqwwDxoUA0lKKRqbo rtUQWwmN1zWZTprTJopRj iDO0jKWMrddns k195JpMrZQX8TVUnoMGyU 5QowE5zNqPsMMTkZGFqA4 VfdHKsDQttS661WFgfQwT 0WQLioiJlS6Es AXXfzRnpRlZ3t9J9Oc2Xq 4YryhmlSSR6EAdaXWHhZt D0KeKdZxB8W2XtQer9KVQ paMsxLH6bM1Ut JMUulhhsepnkrUV6OZEvH JJbkU02jUYgEKckEi1lb0 F7u120RASxHKClbO18Jk4 udDogMTBwdCBU dB3ilrwjk4yvipviKgUoD CSiRJz0VHy1SLJetUxtPi AeITA8RaX0HNG6sPCihT0 yuTaawngvoC0v Oyc+Q28mcP2cQNT7NDX0n nwtUUOxbwXqFR28HR13U9 RyPjwvdGFibGU+PGRpdiB jbEgmYG3dPoMq n4jmp9BfVEemT5CpHFBxB GodLbm4KUYyZSS0xDX3gB 8pOYXdLQywh1U5gYU0A6F nmsJgit5yt4hy VPKxKKjdE80ivKSip3X7D DBfgAF1QITjiDgpItFglM 93Oyc+TOSnePfrt0HoZrp jh8cwd6qjyZh0 SdRsHALypfIcpMldEZI5a 8NfJf37U32eMTxvNZHhLT JiVEHdUHFgdWxblf0fqY9 wIi8+PGNvbCB3 fPJ5tW8jTVKfOaX2VNtvP 233RdAmwDRjXxyqt0seu7 levBa3JgQoMCCghkLrkBq pFKF8h0DlUv97 W82hSQllTXMsJIWsVRQzR DVlbHfifv0vyP2rHo6+PC 8hu4tydy23kD67rZW+PHR wTEK8pLnpFEri IBUtaY4sPGcwRpR5YVSaF hDakH18nSUhJIvaTm6sxY nmfPapHV9tEXJummsgd81 0WmVqu0qhPJRl rGWjNMcnSXY4B84yu2F9Z JMyCGTcMIG0ySW2bH5xcZ lnbjogbGVmdDsgdmVydGl cFIddNCqkY892 IHRvcDsnPlBhdGllbnQgT xRxLSs2Q2KvHah8NPOfcU btTY5sxCDpREqgNh5xeZx ewDusAW8mCJDq yfnoe461StVzv9xsOKXvj NXyLZegMIP8U18ja8B5MO WlKFEmQQZ8wXR1sO6xqVo nbjogbGVmdDsg fiBnxLuaMGeqTQtyI452T HRvcDsnPkJpcnRoIERhdG O1ZR86JC56hNAxn7B3uQN 7C3ZvDKIgxscf eaotlON7DKUhUNZfcK87T d2olKmfKh6hFRQoBFI5LJ GhtMPkL6QvpB4aPrLhYCI mTTGvT1QnpPTo EOvlS852PVlwBuZ2HNLgw nBqS6XqLJJyzJkqTmP3k0 Y5Tw4AG9O1FW54GM91pDE cs8I6zGO6M7Hg LYTbnmhdiueuiEG1KZFmH ORzfW60Qs6voJtkYd9eBP WbAUU1NPOklQIqU8GpvD2 yOiAjMDAwMDAw N9JmyYVvSJkzB006ZRxwH vS6YNAmwvOpS7QkLWRmgP zdCmT5f5J5Oh3XPSj2TN4 5IH47tDVeh6V4 eYU0F3IkKYRivpzcbkxzm OO1ZUGbDSEqkS43Mh3scN krEd1aTQPhHKU4QTZjrES xM5FjhG1sTmPy CHYuXCMhN6MeaQPgQNzoG 867LIlaMuY8LCIdbdZmQ7 KnCSMwlNoaJyS3i7W5Eq3 YRCYdOL27ITN7 sZN5PC49VE93L3SnYrvmw GFibGU+PHRhYmxlIHdpZH RoPScxMDAlJyBzdHlsZT0 gXm9kQALhGDSa jLauwJJiAuKqc5niZOMwP JnyQJ0mnPwdL2AdwXN8ED Tqe2a5Ep36W29aR3HneOZ +ZHQjpYG8rIE6 cQ1hTpBzLdH3SGqoS048Y eRekZRiDnlgl5ooy3smqM h0ShG1VBIagpVlbZpdWTV 3q9RsKb55S93d IHdpZHRoPSIxNSUiIHZhb Vuxsx2cjP0qTa2+PGNvbC P8lEQ5cT8gQsPeIzI7FRa xS607TpNspXAr Xmfdf3hhs3gdfKo5HdZhN CUqahHtlPmxGXX1j8RuQr 83B7BwgAcyg2VwZwj5vp9 4lOBmr1A2mUN7 A2IgGMNtyuxssJCvpOzeU C2pDXVizfjxJFLruI6yWG ZdA1p4HyQrEfQ5YVhkE3K povQ2FJBvsONh BEpbIKL7B94iq1P3MEWpF NYyRFY5hIV9eN3yrXvalc ogbGVmdDsgdmVydGljYWw uAOrdX940WNQr aBguQGNszC3yXDOpnALtp BctQE3bYLIqencwUtAGWA xJRkYsIEpVRFkgQTwvdGQ +BWHwQOQ8yNuw ZNclRJZxaU2cZCZmR3w8B qSeWdE6QPeyV5GlLMDdrj pyOm90zJ1aVmGwNbX3DEi aJ6LbspL6SIIh hJWuZMstBWP5O54or9Z3R BJfDMSfWZD7kNI5mS0ovA lnbjogbGVmdDsgdmVydGl zTGzwSQpcF764 CXNtqNiiTmNaMfTkYkY4O vN1I4BqChx1YDZjnOpeMF 2yyIFvGZebWz3gqLcexRi xCB4kZRBxwtqg CLNjuQ5cAWGrbTXbvYtmV M3wISWktndxe597XhIqZX C6CBMwyETpL5CpbO8pWnS zYQShZBBeV3Xt uEFnNWmaR546CEprZoK6K GOtguCtL6XpCRFrfLcqQk B4s6R2Ss18UJHNCEVengj vdGQ+PHRkIHN0 vZsqTVgjRQHipZ8yAFZcE 4s2ThMiHkT9MBgmB2OtLI KfmqlaGk47oH3zQyGmKhC 3WIwxF8JpnzY2 LNZdjBVlZSteBQS7X52me 2X4DCKrCTFuICC3qAS8aP 1hbGlnbjogbGVmdDsgdmV ydGljYWwtYWxp N648GUZumFvfKdWlwTFbN TwvdGQ+ASYcZQW8yKttAH luLLNfrG6wZHRhT7c4YrZ dLqE4IKfiA8Uk CQWopxrdOa60pV3kDyJoW yJ4MItwI9LrcbG0UFPcbO TxDKxnURZ4N65kt0G5HIV sXMYrIUV2wCV0 eA8wbTfxqlmlaFJgoHckb dRegBpfMEagBUueE347NT XsuMghZmVkHKCuPQ8zlLk vdGQ+ZF57ek61 L0AxUatgHej6HVMpZHU8t MA7vU2xTACdJNuiu6P7kB X9S5WylaQbqm6ln4uhKDL pYLbxG84xcEWi s4Z4EUAtmSQ2YSAqaAsuZ wWxzC77Cxp+PGNvbGdyb3 HwSmncf6poe2udbBm3PaP wJSIgdmFsaWdu KWG3c3QlJs80C07aJUbsV HRoPSIzMCUiIHZhbGlnbj 9igU5yGd7+CWShoED7yWD 9iH6xXfBlWdP3 DPugK609QlCulIUlJxtxl 6gmd8teiZf1RrCcOKUwbh HwoOgbOPT4s2ZwJu17D2U wvSgml7SjSda4 to25aLVlh6M4kEX3R6RbC LVntrkiuBJpjNvgBE6rST EpjqhgHQUesH8dNIQgZ3p 9KaRoZlY6TIum V4ExlcD2UYXhrMGePFEat FUIfG2prlkrb4wdenznJq NnVZXfNVb5ZFj4AJOgfYj rTlNvBTB8QxP9 IBS9pQLsxY8clEtzwmbkd G9wOyc+MJk3p0jjrYKaUW 0bcAJ4GK88SO22xGKnb5J 5fZK2W1SzJJTr xbnhohhwvUL0LBWqQSNvu H91Ii4vwLjmWc7wJMAyLO T6WHPdaAZkF9TbpO9dOkY sCHBfGFBjQ0Wm zJLoNIikH613LSdzXvY0U WZknbEyJ8XdZSTkeOseRq M9p9Z3Zo3DSC61OW88VN5 7fRHwi6U0sPB7 B8BkRSCdcbezfuxurSE3K MUhZQEmfK08Jo2nhJvvUr 4cNPOlTTP9GWTysJFcV1Z ucE4nJpSoTOGf TJDsI5TodFGzUTwdE073P VlhQcC7LJLduqZsQ5CkKP KpuGbdRxH6o5S0Re3YBe8 7RU47ZU18qIZc v8R4lYL0G3AwXCRnopnyx ggmzQA2COXgYAFktS69Ie 3ytYxoJn4rLCKsJZI5YOR fzHYrJ0UpnY0d RsGsXFPwLHPoR6KjeBCfY SsxY821AUiuSnX2ZNUjaz FwN2YsBWJsjFgfByM2u3E 6De9IDWllxts2 R6RhUxrbsDD+LC26ENWmW Z62lGZzgLAtw4xcwOt0Uq VoJRXgDND5gUgzDQaoi8J yFFHkL14scUPr c2U6 (more content not included)... Normal [facility] Consent for Treatmenton 04-18 Consent for Treatment [id number]#1 .00CD:[address] [facility] Discharge Documentationon Discharge Documentation [id number]# 1.00CD:[address] [facility] ED Clinical Summaryon 2021 ED Clinical Summary [address] [address] ED Clinical Summary Person Information Name: FELICITY PHILLIPS [facility]ann/[facility] Age: 56 Years : 1965 Sex: Female Language: Estonian PCP: Jose Antonio Garza MD Marital Status: Phone: [phone] MRN: [id number] Visit Id: Visit Reason: Finger laceration; LEFT [...] 05/10/2022 09:55:01 05/10/2022 09:55:01 05/10/2022 09:55:01 ADDRESS: [address] [place] [id number] PHYS DOC NOTES: MEDICAL INFORMATION: Prescriptions Given: Medications to Continue with No Changes Other Medications acetaminophen-hydroco done ([place] 325 mg-5 mg oral tablet) 1 Tablets [...] As Directed. 6tab/day x7days,5tab/day x7days,4tab/day x7day,3tab/day x7day,2tab/day x7day,1tab/nwwj6frr. Refills: 0. PATIENT EDUCATION INFORMATION: Instructions: Follow up: With: Address: When: Jose Antonio Garza [address] [place] [address], [place] [address] Business (1) In 3 days DIAGNOSIS: Finger laceration Normal [facility] ED Note-Physicianon 05-10-20 22 ED Note-Physician Basic Information Time Seen: Mamadou [...] Jose Antonio Garza In 3 days [address] [facility] [place] [address] [place] [address]- Business (1) Additional Instructions: Problem List/Past Medical [...] Tab, 500 mg= 1 tab(s), Oral, BID [place] 325 mg-5 mg oral tablet, 1 tab(s), [...] Diagnostic Results No qualifying data available. Normal [facility] Comment on above: Result Comment: Elec tronically Signed By: Mamadou Gonzalez DO\.martin\Date and Time Signed: 05/10/22 09:31 EDT ED Patient Education Noteon 05-10-2022 ED Patient Education Note Normal [facility] ED Patient Summaryon 022 ED Patient Summary [place] [id number] Patient Discharge Instructions Person Information Name: FELICITY PHILLIPS Age: 56 Years Arrival Date: 05/10/2022 09:03:11 Discharge Diagnosis: Finger laceration Primary Care Physician: Jose Antonio Garza MD Provider Information Primary Provider: Mamadou Gonzalez DO Advanced Power Tong Operator:None The exam and treatment you received in the Emergency Department were for an urgent problem and are not intended as complete care. It is important that you follow up with a doctor, nurse practitioner, or physician?s apartment community assistant manager for ongoing care. If your symptoms become worse or you do not improve as expected and you are unable to reach your usual health care provider, you should return to the Emergency Department. We are available 24 hours a day. FELICITY PHILLIPS has been given the following list of patient education materials, prescriptions and follow-up instructions: Follow-up Instructions: With: Address: When: Jose Antonio Garza [address] [place] [address] [place] [address] Business (1) In 3 days In the event that this physician does not participate in your insurance network, please consult with your insurance company to find a nearby participating provider. Patient Education Materials: A MESSAGE TO ALL PATIENTS REGARDING OPIOIDS PRESCRIPTION OPIOIDS: WHAT YOU NEED TO KNOW Prescription opioids can be used to help relieve guzujcxe-jn-ejgwdp pain and are often prescribed following a [...] be struggling with addiction, tell your health administrator health care facility and ask for guidance or call SAMHSA?S National Helpline at 7-852-605-HELP. v Source: [place] Department of Health and Human Services/Center for (more content not included)... [facility] Vaccinationson 05-10-2022 Vaccinations [id number]# 1.00CD:127 Normal [facility] Office Visit (Cardiology)on 03-18-2022 Follow-up visit Diagnoses/Problems [...] Recorded: 18Mar2022 08:56AM Heart Rate78, R Radial Fgacfnct276, LUE, Sitting Eheoithoa92, LUE, Sitting Height5 ft 1 in Sccugi390 lb 4 oz BMI Eyhnpnyjfl19.69 kg/m2 BSA Calculated2.01 Tobacco Useb) No PHQ-2 [...] skin turgor (more content not included)... Normal [facility] Tobacco Screening.on 022 Adult depression screening assessment No [facility] 250 DO Work Phone: Tobacco use status CPHS b) No [facility] 250 DO Work Phone: XR HIP LT [...] MIGUEL SERNA Date: 2022-03-01 09:02 Normal [facility] Body fluid albumin measureme nt (mass/volume)Ordered By: Kyle Calderon on 02-22-2022 Albumin (Body fld) [Mass/Vol] 3.6 g/dL 3.2-5.5 [facility] Direct bilirubin measurement Ordered By: Kyle Calderon on 02-22-2022 Bilirubin.direct [Mass/Vol] 0.1 mg/dL 0.0-0.4 [facility] Globulin Calc (S) [Mass/Vol] Ordered By: Kyle Calderon on 02-22-2022 Globulin (S) [Mass/Vol] 3.0 g/dL [facility] Protein [Mass/volume] in Ser um or PlasmaOrdered By: Kyle Calderon on 02-22-2022 Protein [Mass/Vol] 6.6 g/dL 6.1-7.9 [facility] Serum or plasma alanine gilbert otransferase measurement without P-5'-P (enzymatic activiOrdered By: Kyle Calderon on 02-22-2022 ALT No additional P-5'-P [Catalytic activity/Vol] 26 U/L 10-60 [facility] Serum or plasma albumin/glob ulin mass ratioOrdered By: Kyle Calderon on 02-22-2022 Albumin/Globulin [Mass ratio] 1.2 {ratio} [facility] Serum or plasma alkaline steven sphatase measurement (enzymatic activity/volume)Ordered By: Kyle Calderon on 02-22-2022 ALP [Catalytic activity/Vol] 74 U/L 32-92 [facility] Serum or plasma aspartate am inotransferase measurement (enzymatic activity/volume)Ordered By: Kyle Calderon on 02-22-2022 AST [Catalytic activity/Vol] 24 U/L 10-42 [facility] Serum or plasma non-glucuron idated bilirubin measurement (mass/volume)Ordered By: Kyle Calderon on 02-22-2022 Bilirubin.indirect [Mass/Vol] 0.1 mg/dL [facility] Serum or plasma total biliru bin measurement (mass/volume)Ordered By: Kyle Calderon on 02-22-2022 Bilirubin [Mass/Vol] 0.2 mg/dL 0.3-1.2 [facility] Basophils Auto (Bld) [#/Vol] Ordered By: Kyle Calderon on 02-10-2022 Basophils (Bld) [#/Vol] 0.1 10*3/uL 0.0-0.2 [facility] Basophils/100 WBC Auto (Bld) Ordered By: Kyle Calderon on 02-10-2022 Basophils/100 WBC (Bld) 0.6 % . [facility] Blood hemoglobin measurement (mass/volume)Ordered By: Kyle Calderon on 02-10-2022 Hemoglobin (Bld) [Mass/Vol] 11.9 g/dL 11.8-15.4 [facility] Blood leukocytes automated c ount (number/volume)Ordered By: Kyle Calderon on 02-10-2022 WBC (Bld) [#/Vol] 11.4 10*3/uL 4.5-11.0 [facility] Creatinine and Glomerular fi ltration rate.predicted panel (S/P/Bld)Ordered By: Kyle Calderon on 02-10-2022 Creatinine [Mass/Vol] 0.93 mg/dL 0.44-1.03 [facility] Eosinophils Auto (Bld) [#/Vo l]Ordered By: Kyle Calderon on 02-10-2022 Eosinophils (Bld) [#/Vol] 0.2 10*3/uL 0.0-0.45 [facility] Eosinophils/100 WBC Auto (Bl d)Ordered By: Kyle Calderon on 02-10-2022 Eosinophils/100 WBC (Bld) 1.8 % . [facility] Erythrocyte distribution wid th Auto (RBC) [Ratio]Ordered By: Kyle Calderon on 02-10-2022 Erythrocyte distribution width (RBC) [Ratio] 14.0 % 11.9-15.3 [facility] Erythrocyte sedimentation ra te by Photometric methodOrdered By: Kyle Calderon on 02-10-2022 ESR Photometric method (Bld) [Velocity] 30 mm/hr 0-29 [facility] Estimated glomerular filtrat ion rate (GFR) non- AmericanOrdered By: Kyle Calderon on 02-10-2022 GFR/1.73 sq M.predicted among non-blacks MDRD (S/P/Bld) [Vol rate/Area] > 60 mL/Min [facility] Hematocrit Auto (Bld) [Volum e fraction]Ordered By: Kyle Calderon on 02-10-2022 Hematocrit (Bld) [Volume fraction] 35.9 % 34.0-46.4 [facility] Hepatitis A virus Ab [Presen ce] in Serum by ImmunoassayOrdered By: Kyle Calderon on 02-10-2022 HAV Ab IA Ql (S) Negative Negative [facility] Comment on above: Performed at: [place] [id number] [employer] Parts Designer: Thompson Osullivan PhD, Phone: [phone] Hepatitis B virus surface Ag [Presence] in Serum or Plasma by ImmunoassayOrdered By: Kyle Calderon on 02-10-2022 HBV surface Ag IA Ql Negative Negative [facility] Laboratory - Hematology and Cell countsOrdered By: Kyle Calderon on 02-10-2022 Nucleated RBC/100 WBC (Bld) [Ratio] 0.1 % 0-0.5 [facility] Lymphocytes Auto (Bld) [#/Vo l]Ordered By: Kyle Calderon on 02-10-2022 Lymphocytes (Bld) [#/Vol] 1.5 10*3/uL 1.00-4.8 [facility] Lymphocytes/100 WBC Auto (Bl d)Ordered By: Kyle Calderon on 02-10-2022 Lymphocytes/100 WBC (Bld) 13.0 % . [facility] MCH Auto (RBC) [Entitic mass ]Ordered By: Kyle Calderon on 02-10-2022 MCH (RBC) [Entitic mass] 30.1 pg 24.7-34.3 [facility] MCHC Auto (RBC) [Mass/Vol]Or dered By: Kyle Calderon on 02-10-2022 MCHC (RBC) [Mass/Vol] 33.1 g/dL 32.0-35.0 [facility] MCV Auto (RBC) [Entitic vol] Ordered By: Kyle Calderon on 02-10-2022 MCV (RBC) [Entitic vol] 91.1 fL 80-100 [facility] Monocytes Auto (Bld) [#/Vol] Ordered By: Kyle Calderon on 02-10-2022 Monocytes (Bld) [#/Vol] 0.6 10*3/uL 0.0-0.8 [facility] Monocytes/100 WBC Auto (Bld) Ordered By: Kyle Calderon on 02-10-2022 Monocytes/100 WBC (Bld) 5.3 % . [facility] Neutrophils Auto (Bld) [#/Vo l]Ordered By: Kyle Calderon on 02-10-2022 Neutrophils (Bld) [#/Vol] 9.0 10*3/uL 1.8-7.7 [facility] Neutrophils/100 WBC Auto (Bl d)Ordered By: Kyle Calderon on 02-10-2022 Neutrophils/100 WBC (Bld) 79.3 % . [facility] No Panel InformationOrdered By: Kyle Calderon on 02-10-2022 Estimated GFR () > 60 mL/Min [facility] Comment on above: GFR estimated refere nce range: According to KDOQI guidelines, <60 ml/min/1.73m2 is sufficient to diagnose a patient with chronic kidney disease. Hepatitis B Core Total Antibody Negative Negative [facility] Hepatitis C Interpretation See comment . [facility] Comment on above: Negative Not infected with HCV, unless recent infection is suspected or other evidence exists to indicate HCV infection. Hepatitis C RNA Quantitative N/A [facility] Creatinine Clearance (Chem N/A [facility] Platelet mean volume Auto (B ld) [Entitic vol]Ordered By: Kyle Calderon on 02-10-2022 Platelet mean volume (Bld) [Entitic vol] 8.2 fL 6.3-10.7 [facility] Platelets Auto (Bld) [#/Vol] Ordered By: Kyle Calderon on 02-10-2022 Platelets (Bld) [#/Vol] 272 10*3/uL 150-450 [facility] RBC Auto (Bld) [#/Vol]Ordere d By: Kyle Calderon on 02-10-2022 RBC (Bld) [#/Vol] 3.95 10*6/uL 3.60-5.00 [facility] Serum hepatitis B virus surf lakes[place] antibody detectionOrdered By: Kyle Calderon on 02-10-2022 HBV surface Ab Ql (S) Non-Reactive . [facility] Comment on above: Non Reactive: Incons istent with immunity, less than 10 mIU/mL Reactive: Consistent with immunity, greater than 9.9 mIU/mL Serum or plasma hepatitis C virus antibody signal/cutoff ratio by immunoassay (relatiOrdered By: Kyle Calderon on 02-10-2022 HCV Ab Signal/Cutoff IA [Rel units/Vol] 0.1 s/co ratio 0.0-0.9 [facility] MUGA SCAN INJECTIONon [facility] MUGA SCAN INJECTION Patient Name: FELICITY PHILLIPS STUDY: MUGA Performing facility: [facility], [address] [place] [address], [address] Provider: Amanuel Valladares RN, PLANT ACCOUNTANT PCP: Dr. Lorenzo Garza Supervising provider: Yanet Sommer MD INDICATION: SOB; Non-ischemic cardiomyopathy HISTORY: Gender: F; Age: 55 y/o ; Height: 154.94 cm; Weight: 930.7171918 kg. HTN; SOB; Quit smoking unknown years ago. Cardiac catheterization on 2016. COMPARISON: Previous nuclear testing completed [id number] at [facility]. Previous echo testing completed [id number] at [facility]. ACCESSION NUMBER(S): [id number]; [id number] ORDERING CLINICIAN: AMANUEL VALLADARES TECHNIQUE: The patient received an IV injection of 3 ml of stannous pyrophosphate (PYP) using the in-vivo method of labeling red blood cells. After 15 minutes the patient received another IV injection of 27.0 mCi of Technetium 99m pertechnetate. Planar images of the left ventricle were obtained in the WHITNEY 45, Lt Lateral and anterior projections. FINDINGS: [...] signed by: YANET SOMMER MD Normal [facility] Echocardiogramon 09-04-[address] [facility] [address], [address], [place] [address] TRANSTHORACIC ECHOCARDIOGRAM REPORT Patient Name: FELICITY PHILLIPS Reading Physician: [id number] Jose Carlos KathyaGarzon Study Date: 09/04/2020 Referring Physician: [id number] AMANUEL VALLADARES MRN/PID: [id number] PCP: Jose Antonio Garza Accession/Order#: [id number] Department Location: 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 OBSOLETEon 08-02-2018 OBSOLETE Refill (ADELA) FELICITY PHILLIPS ([id number]) 1965 F Date Time Provider Department 08/02/18 CEASAR CUNHA During your visit today, we recorded the following information about you: Maye Vora 08/02/2018 9:23 AM Signed Pharmacy verified in Epic Patient has been identified by name and date of : Yes Prescription must be called to the pharmacy (non-escript). [facility] phone [phone]. Please call patient after medication has been [...] (225 lb) Not applicable Please advise. Maye Amaral APRN.PLANT ACCOUNTANT 08/03/2018 9:25 AM Signed We have no [...] copy of the labs. Thanks, Brandie Amaral APRN.PLANT ACCOUNTANT Allergies As of Date: 08/02/2018 Noted Allergy [...] Status:Closed by BRANDIE AMARAL CNP on 08/03/18 [facility] CNOVon 05-30-2018 CNOV Office Visit (CARDALEX ) FELICITY PHILLIPS ([id number]) 1965 F Date Time Provider Department 05/30/18 9:30 AM CEASAR CUNHA During your visit today, we recorded the following information about you: Pulse Blood pressure Weight Height 82/minute 142/80 105.1 kg 1.524 m Ceasar Cunha MD 05/30/2018 9:42 AM [facility] [place] Kyle Devan Rodriguez Department of Cardiovascular Medicine OUTPATIENT VISIT DATE 05/30/18 OUTPATIENT VISIT TYPE ESTABLISHED PRIMARY CARE PHYSICIAN: Jose Antonio Garza MD [address] [place] [phone] CHIEF COMPLAINT: Patient presents with: Follow Up [...] visit. Apparently she had a hospitalization at [facility] which led to transfer to [facility]. She had a cardiac catheterization performed which [...] T-wave changes. The patient was sent to [facility] emergency room where she was evaluated and eventually transferred to [facility] where she underwent a cardiac catheterization which [...] her echocardiogram noted above. Cardiac catheterization at [facility] in January 2017 revealed normal coronary arteries and a mild to moderate reduction in left ventricular ejection fraction at 40%. The LVEDP was elevated at 20-25 mmHg. A 2-D echocardiogram performed at [facility] in January 2017 revealed a left ventricular [...] U.S. Mail. This document was generated utilizing My Top 10ation. I have reviewed and verified that the contents of the document are accurate with the exception of minor grammatical, spelling and punctuation errors. CONTACT INFORMATION: Thank you for allowing us to participate in the care of this very pleasant patient. Please free to contact us if we can be of any further assistance. Ceasar Cunha MD, [facility] Nataly Rodriguez Department of Cardiovascular Medicine [facility] [place] [address] Office: [phone] Referring Provider: JOSE ANTONIO GARZA [[id number]] Allergies As of Date: 05/30/2018 Noted Allergy [...] Status:Closed by JENNY CUNHA MD on 05/30/18 Normal [facility] PROGRESSon 05-30-2018 Protein mass conc HNO ID: [id number] Author: Ceasar Cunha Service: (none) Author Type: Physician Type: Progress Notes Filed: 05/30/2018 9:42 AM Note Text: [facility] [place] Nataly Rodriguez Department of Cardiovascular Medicine OUTPATIENT VISIT DATE 05/30/18 OUTPATIENT VISIT TYPE ESTABLISHED PRIMARY CARE PHYSICIAN: Jose Antonio Garza MD [address] [place] [phone] CHIEF COMPLAINT: Patient presents with: Follow Up [...] visit. Apparently she had a hospitalization at [facility] which led to transfer to [facility]. She had a cardiac catheterization performed which [...] T-wave changes. The patient was sent to [facility] emergency room where she was evaluated and eventually transferred to [facility] where she underwent a cardiac catheterization which [...] her echocardiogram noted above. Cardiac catheterization at [facility] in January 2017 revealed normal coronary arteries and a mild to moderate reduction in left ventricular ejection fraction at 40%. The LVEDP was elevated at 20-25 mmHg. A 2-D echocardiogram performed at [facility] in January 2017 revealed a left ventricular [...] U.S. Mail. This document was generated utilizing Soko dictation. I have reviewed and verified that the contents of the document are accurate with the exception of minor grammatical, spelling and punctuation errors. CONTACT INFORMATION: Thank you for allowing us to participate in the care of this very pleasant patient. Please free to contact us if we can be of any further assistance. Ceasar Cunha MD, [facility] Nataly Rodriguez Department of Cardiovascular Medicine [facility] [place] [facility] [address] [place] [id number] Office: [phone] [facility] CNOVon 01-30-2018 CNOV Office Visit (CARDFT ) FELICITY PHILLIPS ([id number]) 1965 F Date Time Provider Department 01/30/18 10:30 AM CEASAR CUNHA During your visit today, we recorded the following information about you: Pulse Respiration Blood pressure Weight 69/minute 16/minute 133/74 102.1 kg Ceasar Cunha MD 01/30/2018 11:03 AM [facility] [place] Nataly Rodriguez Department of Cardiovascular Medicine OUTPATIENT VISIT DATE 01/30/18 OUTPATIENT VISIT TYPE ESTABLISHED PRIMARY CARE PHYSICIAN: Jose Antonio Garza MD [address] [place] [phone] CHIEF COMPLAINT: Patient presents with: Follow Up [...] visit. Apparently she had a hospitalization at [facility] which led to transfer to [facility]. She had a cardiac catheterization performed which [...] T-wave changes. The patient was sent to [facility] emergency room where she was evaluated and eventually transferred to [facility] where she underwent a cardiac catheterization which [...] her echocardiogram noted above. Cardiac catheterization at [facility] in January 2017 revealed normal coronary arteries and a mild to moderate reduction in left ventricular ejection fraction at 40%. The LVEDP was elevated at 20-25 mmHg. A 2-D echocardiogram performed at [facility] in January 2017 revealed a left ventricular [...] U.S. Mail. This document was generated utilizing Soko dictation. I have reviewed and verified that the contents of the document are accurate with the exception of minor grammatical, spelling and punctuation errors. CONTACT INFORMATION: Thank you for allowing us to participate in the care of this very pleasant patient. Please free to contact us if we can be of any further assistance. Ceasar Cunha MD, [facility] Nataly Rodriguez Department of Cardiovascular Medicine [facility] [place] [address] Office: [phone] Referring Provider: JOSE ANTONIO GARZA [[id number]] Allergies As of Date: 01/30/2018 Noted Allergy [...] by JENNY CUNHA MD on 01/30/18 Normal [facility] PROGRESSon 01-30-2018 Protein mass conc HNO ID: [id number] Author: Ceasar Cunha Service: (none) Author Type: Physician Type: Progress Notes Filed: 01/30/2018 11:03 AM Note Text: [facility] [place] Nataly Rodriguez Department of Cardiovascular Medicine OUTPATIENT VISIT DATE 01/30/18 OUTPATIENT VISIT TYPE ESTABLISHED PRIMARY CARE PHYSICIAN: Jose Antonio Garza MD [address] [place] [phone] CHIEF COMPLAINT: Patient presents with: Follow Up [...] visit. Apparently she had a hospitalization at [facility] which led to transfer to [facility]. She had a cardiac catheterization performed which [...] T-wave changes. The patient was sent to [facility] emergency room where she was evaluated and eventually transferred to [facility] where she underwent a cardiac catheterization which [...] her echocardiogram noted above. Cardiac catheterization at [facility] in January 2017 revealed normal coronary arteries and a mild to moderate reduction in left ventricular ejection fraction at 40%. The LVEDP was elevated at 20-25 mmHg. A 2-D echocardiogram performed at [facility] in January 2017 revealed a left ventricular [...] [employer]. This document was generated utilizing My [employer]. I have reviewed and verified that the contents of the document are accurate with the exception of minor grammatical, spelling and punctuation errors. CONTACT INFORMATION: Thank you for allowing us to participate in the care of this very pleasant patient. Please free to contact us if we can be of any further assistance. Ceasar uCnha MD, [facility] Nataly Rodriguez Department of Cardiovascular Medicine [facility] [place] [facility] [place] [address] Office: [phone] [facility] Vital Signs Date Time Vital Sign Value Performing Clinician Facility 05-31-2023 23:54-0500 Diastolic blood pressure 80 mm[Hg] MD Jose Antonio Garza Work Phone: [facility] 05-31-2023 23:54-0500 Systolic blood pressure 178 mm[Hg] MD Jose Antonio Garza Work Phone: [facility] 05-31-2023 21:57-0500 Body height 152.4 cm MD Jose Antonio Garza Work Phone: [facility] 05-31-2023 21:57-0500 Body temperature 98.9 [degF] MD Jose Antonio Garza Work Phone: [facility] 05-31-2023 21:57-0500 Body weight 102.65 kg MD Jose Antonio Garza Work Phone: [facility] 05-31-2023 21:57-0500 Heart rate 98 /min MD Jose Antonio Garza Work Phone: [facility] 05-31-2023 21:57-0500 Respiratory rate 20 /min MD Jose Antonio Garza Work Phone: [facility] 05-31-2023 21:57-0500 SaO2% (BldA) [Mass fraction] 96 % MD Jose Antonio Garza Work Phone: [facility] 05-11-2023 08:13-0400 Body height 154.9 cm Amanuel Valladares MEDICAL RESEARCH TECH-PLANT ACCOUNTANT Work Phone: [facility] 05-11-2023 08:13-0400 Body mass index (BMI) [Ratio] 42.32 kg/m2 Amanuel Valladares MEDICAL RESEARCH TECH-PLANT ACCOUNTANT Work Phone: [facility] 05-11-2023 08:13-0400 Body weight 101.61 kg Amanuel Valladares MEDICAL RESEARCH TECH-PLANT ACCOUNTANT Work Phone: [facility] 05-11-2023 08:13-0400 Diastolic blood pressure 80 mm[Hg] Amanuel Valladares MEDICAL RESEARCH TECH-PLANT ACCOUNTANT Work Phone: [facility] 05-11-2023 08:13-0400 Heart rate 92 /min Amanuel Valladares MEDICAL RESEARCH TECH-PLANT ACCOUNTANT Work Phone: [facility] 05-11-2023 08:13-0400 Systolic blood pressure 130 mm[Hg] Amanuel Valladares MEDICAL RESEARCH TECH-PLANT ACCOUNTANT Work Phone: [facility] 02-24-2023 11:56-0400 Body temperature 98.06 [degF] [facility] 02-24-2023 11:56-0400 Diastolic blood pressure 100 mm[Hg] [facility] 02-24-2023 11:56-0400 Heart rate 89 /min [facility] 02-24-2023 11:56-0400 Respiratory rate 16 /min [facility] 02-24-2023 11:56-0400 SaO2% (BldA) [Mass fraction] 98 % [facility] 02-24-2023 11:56-0400 Systolic blood pressure 200 mm[Hg] Briana Winters [facility] 11-25-2022 12:00-0400 Body height 154.94 cm [facility] Other [employer] Other 11-25-2022 12:00-0400 Body mass index (BMI) [Ratio] 45.91 kg/m2 [employer] Other [employer] Other 11-25-2022 12:00-0400 Body weight 110.22 kg [employer] Other [employer] Other 11-25-2022 12:00-0400 Diastolic blood pressure 98 mm[Hg] [employer] Other [employer] Other 11-25-2022 12:00-0400 Systolic blood pressure 160 mm[Hg] [employer] Other [employer] Other 07-07-2022 14:00-0500 Body height 154.94 cm Kyle Floresle II Other [employer] Other 07-07-2022 14:00-0500 Body mass index (BMI) [Ratio] 41.56 kg/m2 Kyle Mcclain II Other [employer] Other 07-07-2022 14:00-0500 Body weight 99.79 kg Kyle Jakub II Other [employer] Other 07-05-2022 13:34-0500 Body height 154.94 cm MD Jose Antonio Garza Work Phone: [facility] 07-05-2022 13:34-0500 Body temperature 97.5 [degF] MD Jose Antonio Garza Work Phone: [facility] 07-05-2022 13:34-0500 Body weight 100 kg MD Jose Antonio Garza Work Phone: [facility] 07-05-2022 13:34-0500 Diastolic blood pressure 98 mm[Hg] MD Jose Antonio Garza Work Phone: [facility] 07-05-2022 13:34-0500 Heart rate 85 /min MD Jose Antonio Garza Work Phone: [facility] 07-05-2022 13:34-0500 Respiratory rate 20 /min MD Jose Antonio Garza Work Phone: [facility] 07-05-2022 13:34-0500 SaO2% (BldA) [Mass fraction] 96 % MD Jose Antonio Garza Work Phone: [facility] 07-05-2022 13:34-0500 Systolic blood pressure 188 mm[Hg] MD Jose Antonio Garza Work Phone: [facility] 05-19-2022 14:53-0400 Blood Pressure Location Jose Carlos DENISSE [facility] 05-19-2022 14:53-0400 Diastolic blood pressure 82 mm[Hg] Jose Carlos MADRID [facility] 05-19-2022 14:53-0400 Heart rate 80 /min Jose Carlos MADRID [facility] 05-19-2022 14:53-0400 Respiratory rate 16 /min Jose Carlos MADRID [facility] 05-19-2022 14:53-0400 Systolic blood pressure 120 mm[Hg] Jose Carlos FARAHL [facility] Surgery [facility] [place] 05-10-2022 09:07-0400 Body temperature 98.06 [degF] Mamadou Gonzalez [facility] 05-10-2022 09:07-0400 Diastolic blood pressure 88 mm[Hg] Mamadou Gonzalez [facility] 05-10-2022 09:07-0400 Heart rate 68 /min Mamadou Gonzalez [facility] 05-10-2022 09:07-0400 Respiratory rate 20 /min Mamadou Gonzalez [facility] 05-10-2022 09:07-0400 SaO2% (BldA) [Mass fraction] 98 % Mamadou Gonzalez [facility] 05-10-2022 09:07-0400 Systolic blood pressure 146 mm[Hg] Mamadou Gonzalez [facility] 03-18-2022 08:56-0400 Body height 154.94 cm Jose Antonio Fabrice Hoy Work Phone: [facility] 250 DO Work Phone: 03-18-2022 08:56-0400 Body mass index (BMI) [Ratio] 43.69 kg/m2 Jose Antonio M Hoy Work Phone: [facility] 250 DO Work Phone: 03-18-2022 08:56-0400 Body surface area Derived from formula 2.01 m2 Jose Antonio Fabrice Hoy Work Phone: [facility] 250 DO Work Phone: 03-18-2022 08:56-0400 Body weight 104.89 kg Jose Antonio Fabrice Hoy Work Phone: [facility] 250 DO Work Phone: 03-18-2022 08:56-0400 Diastolic blood pressure 82 mm[Hg] Jose Antonio M Hoy Work Phone: [facility] 250 DO Work Phone: 03-18-2022 08:56-0400 Heart rate 78 /min Jose Antonio M Hoy Work Phone: [facility] 250 DO Work Phone: 03-18-2022 08:56-0400 Systolic blood pressure 140 mm[Hg] Jose Antonio Garza Work Phone: [facility] 250 DO Work Phone: Encounters Encounter Date Encounter Type Care Provider Facility Start: 09-27-2023 End: 09-27-2023 ambulatory Kyle Calderon Facility:[facility] Start: 08-01-2023 End: 08-01-2023 ambulatory BRITTANY CHOUDHURY Not Available Start: 06-27-2023 End: 06-27-2023 ambulatory BRITTANY CHOUDHURY Not Available Start: 06-21-2023 End: 06-21-2023 ambulatory BRITTANY CHOUDHURY Not Available Start: 05-31-2023 End: 06-01-2023 Emergency department patient visit Stef Molina Jr Facility:[facility] Start: 05-31-2023 End: 05-31-2023 Emergency department patient visit MD Jose Antonio Garza Work Phone: [facility] Room Work Phone: Start: 05-11-2023 End: 05-11-2023 ambulatory [facility] Ambulatory Start: 05-11-2023 End: 05-11-2023 Office outpatient visit 15 minutes [facility] MEDICAL RESEARCH TECH-PLANT ACCOUNTANT Work Phone: [facility] Comment on above: Non-ischemic cardiom yopathy (CMS/HCC) (Primary Dx); Primary hypertension; Obstructive sleep apnea syndrome; Morbid obesity (CMS/HCC); Hypertension, unspecified type; SOB (shortness of breath) on exertion Start: 04-28-2023 End: 04-28-2023 ambulatory Jose Antonio Garza Facility:[facility] Start: 04-28-2023 End: 04-28-2023 ambulatory MD Jose Antonio Garza Work Phone: [facility] Work Phone: Start: 04-28-2023 End: 04-28-2023 Patient encounter procedure MD Jose Antonio Garza Work Phone: [facility]-Lab [address] Work Phone: Start: 03-28-2023 Rx Renewal Jose Antonio Garza Work Phone: [facility] 250 DO Work Phone: Start: 02-24-2023 End: 02-24-2023 Emergency department patient visit Briana Winters Facility:[facility] Start: 02-24-2023 End: 02-24-2023 [facility] Start: 01-05-2023 End: 01-05-2023 ambulatory Kyle Calderon Facility:[facility] Start: 01-05-2023 End: 01-05-2023 ambulatory MD Jose Antonio Garza Work Phone: [facility] Work Phone: Start: 01-05-2023 End: 01-05-2023 Patient encounter procedure MD Jose Antonio Garza Work Phone: [facility] [address] Work Phone: Start: 11-30-2022 End: 11-30-2022 ambulatory Maxi Glez Other [facility] [employer] Other Start: 11-30-2022 Telephone encounter Maxi Glez [employer] Start: 11-25-2022 End: 11-25-2022 ambulatory Nancy Kapadia Other [facility] Other Start: 11-25-2022 Office outpatient ne w 45 minutes Nancy Kapadia [facility] Start: 11-22-2022 Rx Renewal Jose Antonio Garza Work Phone: [facility] 600 DO Work Phone: Start: 11-13-2022 End: 11-14-[address] JOSE ANTONIO GARZA . Facility: Start: 11-03-2022 End: 11-03-2022 ambulatory Kyle Calderon Facility:[facility] Start: 11-03-2022 End: 11-03-2022 ambulatory MD Jose Antonio Garza Work Phone: [facility] Work Phone: Start: 11-03-2022 End: 11-03-2022 Patient encounter procedure MD Jose Antonio Garza Work Phone: [facility] [address] Work Phone: Start: 11-01-2022 Rx Renewal Jose Antonio Garza Work Phone: [facility] 250 DO Work Phone: Start: 10-19-2022 End: 10-19-2022 ambulatory Kyle Call II Other [employer] Other Start: 10-19-2022 Telephone encounter Kyle Call II [facility] Start: 10-07-2022 End: 10-07-2022 ambulatory Kyle Floresle II Other [employer] Other Start: 10-07-2022 Telephone encounter Kyle Mcclain II [facility] Start: 09-29-2022 Office outpatient vi sit 25 minutes Kyle Jakub II [facility] Start: 09-29-2022 End: 09-29-2022 ambulatory MD Jose Antonio Garza Work Phone: [facility] Work Phone: Start: 09-29-2022 End: 09-29-2022 Patient encounter procedure MD Jose Antonio Garza Work Phone: [facility]-XRay [facility] Start: 09-06-2022 Rx Renewal Jose Antonio Garza Work Phone: [facility] 250 DO Work Phone: Start: 08-02-2022 End: 08-02-2022 ambulatory Kyle Jakub II Other [employer] Other Start: 08-02-2022 Telephone encounter Kyle Mcclain II [facility] Start: 07-30-2022 End: 07-30-2022 ambulatory Kyle Floresle II Other [employer] Other Start: 07-30-2022 Office outpatient vi sit 25 minutes Kyle Floresle II [facility] Start: 07-27-2022 End: 07-27-2022 Patient encounter procedure MD Jose Antonio Garza Work Phone: [facility]-MRI [address] Work Phone: Start: 07-22-[address] JOSE ANTONIO GARZA . Facili ty:[facility] Start: 07-07-2022 Office outpatient ne w 45 minutes Kyle Call II [facility] Start: 07-07-2022 End: 07-07-2022 ambulatory MD Jose Antonio Garza Work Phone: [facility] Work Phone: Start: 07-07-2022 End: 07-07-2022 Patient encounter procedure MD Jose Antonio Garza Work Phone: [facility] Start: 07-05-2022 End: 07-05-2022 Emergency department patient visit MD Jose Antonio Garza Work Phone: [facility]-Emergency Room Start: 06-30-2022 End: 06-30-[address] JOSE ANTONIO GARZA . Facility:[facility] Start: 05-25-2022 End: 05-26-2022 ambulatory Jose Carlos MADRID Facility:[facility] Start: 05-19-2022 End: 05-19-[address] JOSE ANTONIO GARZA . Facility:[facility] Start: 05-19-2022 End: 05-20-2022 ambulatory Jose Carlos MADRID Facility:[facility] Start: 05-19-2022 End: 05-19-2022 Patient encounter procedure Jose Carlos MADRID [facility] Start: 05-18-2022 ambulatory Jose Antonio Garza Facility:[facility] Start: 05-10-2022 End: 05-10-2022 Emergency department patient visit Mamadou Gonzalez Facility:[facility] Start: 05-10-2022 End: 05-10-2022 Emergency department patient visit Mamadou Gonzalez [facility] Start: 03-18-2022 Office outpatient vi sit 15 minutes Jose Antonio Garza Work Phone: [facility] 250 DO Work Phone: Start: 03-01-2022 End: 03-01-[address] JOSE ANTONIO GARZA . Facility:[facility] Start: 02-22-2022 End: 02-22-2022 Patient encounter procedure MD Jose Antonio Garza Work Phone: [facility] [address] Start: 02-15-2022 End: 02-16-[address] JOSE ANTONIO GARZA . Facility:[facility] Start: 02-10-2022 End: 02-10-2022 Patient encounter procedure MD Jose Antonio Garza Work Phone: [facility] [address] [place] Start: 01-26-2022 Rx Renewal Jose Antonio Garza Work Phone: [facility] 250 DO Work Phone: Start: 01-22-2022 Rx Renewal Jose Antonio Fabrice Kai Work Phone: [facility] 250 DO Work Phone: Start: 10-06-2021 AUDIT Jose Antonio Garza Work Phone: [facility] 250 DO Work Phone: Start: 10-17-2018 Patient encounter procedure PROVIDER UNKNOWN Facility:[id number] Start: 10-17-2018 Patient encounter procedure Facility:[id number] Start: 05-30-2018 End: 06-09-2018 Patient encounter procedure CEASAR CUNHA [facility] Start: 01-30-2018 End: 01-30-2018 Patient encounter procedure CEASAR CUNHA [facility] Start: 04-07-2017 End: 04-08-2017 Ambulatory DEFAULT PHYSICIAN Facility:[facility] Procedures Date Procedure Procedure Detail Performing Clinician [...] w/ Lymph node removal left arm Mamadou [place] Appendectomy Jose Antonio M Janny Work Phone: Appendectomy Mamadou Gonzalez Cholecystectomy Jose Antonio M Ho y Work Phone: Cholecystectomy Mamadou Gonzalez Hysterectomy Jose Antonio M Hoy Work Phone: Insertion of arterial stent Jose Antonio M Janny Work Phone: Operative procedure on foot Jose Antonio M Kai Work Phone: Comment on above: LEFT; Total abdominal hyst erectomy with bilateral salpingo-oophorectomy Mamadou Gonzalez Total colonoscopy Jose Antonio M Kai Work Phone: Comment on above: ONSET DATE [id number] JALEEL; Plan of Treatment Date Care Activity Detail Author Start: 05-10-2032 DTaP/Tdap/Td Vaccines (3 - Td or Tdap) DTaP/Tdap/Td Vaccines (3 - Td or Tdap) [facility] Start: 05-09-2024 End: 05-09-2024 Patient encounter procedure 05/09/2024 8:00 AM EDT Office Visit [facility] [address] [place] [id number] Amanuel Valladares, MEDICAL RESEARCH TECH-PLANT ACCOUNTANT [address] [place] [address] [facility] Start: 05-31-2023 Plain chest X-ray XR chest 2V* [facility] Start: 05-31-2023 XR Chest 2 Views [facility] Start: 05-11-2023 FUV, Provider: Amanuel Davis, Status: Pen, Time: 8:00 AM FUV, Provider: Amanuel Davis, Status: Pen, [facility]: 8:00 AM [facility] Work Phone: Start: 03-23-2023 FUV, Provider: Amanuel Davis, Status: Pen, Time: 9:00 AM FUV, Provider: Amanuel Davis, Status: Pen, Time: 9:[address] [facility] Work Phone: Start: 03-18-2023 Influenza vaccination Influenza Vaccine (#1) [facility] Start: 03-17-2022 FUV, Provider: Frandy Fung, Status: Pen, Time: 10:10 AM FUV, Provider: Frandy Fung, Status: Pen, Time: 10:[address] [facility] Work Phone: Start: 02-22-2022 End: 02-22-2022 Patient encounter procedure Departed Clinical [facility] [address] Start: 12-17-2021 FUV, Provider: Frandy Fung, Status: Pen, Time: 9:50 AM FUV, Provider: Frandy Fung, Status: Pen, Time: 9:50 AM [facility] Work Phone: Start: 11-22-2020 COVID-19 Vaccine (3 - Moderna risk series) COVID-19 Vaccine (3 - Moderna risk series) [facility] Start: 2006 Screening for malignant neoplasm of breast Mammogram [facility] Start: 1987 Screening for malignant neoplasm of cervix [facility] Start: 1985 Zoster Vaccines (1 of 2) Zoster Vaccines (1 of 2) [facility] Start: 1984 Diabetes mellitus screening Diabetes Screening [facility] Start: 1984 Hepatitis C screening Hepatitis C Screening [facility] Start: 1972 Pneumococcal Vaccine: Pediatrics (0 to 5 Years) and At-Risk Patients (6 to 64 Years) (1 - PCV) Pneumococcal Vaccine: Pediatrics (0 to 5 Years) and At-Risk Patients (6 to 64 Years) (1 - PCV) [facility] Start: 1967 MMR Vaccines (1 of 1 - Standard series) MMR Vaccines (1 of 1 - Standard series) [facility] Start: 1966 Hepatitis B Vaccines (1 of 3 - 3-dose series) Hepatitis B Vaccines (1 of 3 - 3-dose series) [facility] Start: 1966 HIV screening HIV Screening [facility] Start: 1966 Lipid panel Lipid Panel [facility] Start: 1966 Screening for malignant neoplasm of colon [facility] Start: 1966 Yearly Adult Physical Yearly Adult Physical [facility] Patient Education [facility] Work Phone: Patient referral [facility] Work Phone: Immunizations Immunization Date Immunization Notes Care Provider Shanta graham 05-10-2022 tetanus toxoid, redu lorena diphtheria toxoid, and acellular pertussis vaccine, adsorbed Mamadou Gonzalez [facility] 05-27-2021 influenza virus vaccine, unspecified formulation Jose Antonio Garza Work Phone: [facility] [employer] 250 DO Work Phone: 10-25-2020 Moderna COVID-19 Vaccine 100 MCG/0.5ML Intramuscular Suspension Jose Antonio Garza [facility]: [facility] [facility] DO Work Phone: 09-27-2020 Moderna COVID-19 Vaccine 100 MCG/0.5ML Intramuscular Suspension Jose Antonio Garza Work Phone: [facility] 250 DO Work Phone: 05-16-2020 influenza virus vaccine, unspecified formulation Jose Antonio Garza Work Phone: [facility] 250 DO Work Phone: 04-27-2020 influenza virus vaccine, unspecified formulation Jose Antonio Avina Hoy Work Phone: [facility] 250 DO Work Phone: 04-27-2020 influenza, seasonal, injectable Amanuelvanita Valladares MEDICAL RESEARCH TECH-PLANT ACCOUNTANT Work Phone: [facility] Work Phone: 05-17-2019 influenza virus vaccine, unspecified formulation Jose [facility] Gar[facility] Work Phone: 04-17-2018 influenza virus vaccine, unspecified formulation [facility] Work Phone: 04-28-2016 influenza, injectabl e, quadrivalent, preservative free Jose Antonio Garza Work Phone: [facility] Work Phone: 04-22-2016 influenza, seasonal, injectable Jose Antonio Kai Work Phone: [facility] 04-17-2016 influenza virus vaccine, unspecified formulation Jose Antonio Avina Hojenifer Work Phone: [facility] DO Work Phone: 06-08-2014 tetanus toxoid, redu lorena diphtheria toxoid, and acellular pertussis vaccine, adsorbed Kyle Call II Other [employer] Other 06-01-2010 tetanus toxoid, redu lorena diphtheria toxoid, and acellular pertussis vaccine, adsorbed Mamadou Gonzalez [facility] Payers Date Payer Category Payer Unknown 1965 Unknown [id number] 1966 Unknown [id number] [id number] 1966 Unknown [id number] 2.16.840.1.888948.3.579.2.593 1966 Unknown [id number] 2.16.840.1.435197.3.579.2.593 1966 Unknown [id number] 2.16.840.1.677369.3.579.2.593 1966 Unknown [id number] 2.16.840.1.191157.3.579.2.593 1966 Unknown [id number] 2.16.840.1.133073.3.579.2.593 1966 Unknown [id number] 2.16.840.1.328053.3.579.2.593 1966 Unknown [id number] 2.16.840.1.082565.3.579.2.727 1966 Unknown [id number] 2.16.840.1.674743.3.579.2.727 1966 Unknown [id number] 2.16.840.1.593662.3.579.2.727 1966 Unknown [id number] 2.16.840.1.698317.3.579.2.727 1966 Unknown [id number] 2.16.840.1.808183.3.579.2.727 1966 Unknown [id number] 2.16.840.1.945490.3.579.2.1244 1966 Unknown [id number] 2.16.840.1.103934.3.579.2.1259 1966 Unknown [id number] 2.16.840.1.495006.3.579.2.1259 1966 Unknown [id number] 2.16.840.1.504521.3.579.2.1259 1959 Self-pay [id number] 1959 Unknown [id number] Unknown [id number] 2.16.840.1.230074.3.579.2.531 Unknown [id number] 2.16.840.1.858525.3.579.2.531 Unknown [id number] 2.16.840.1.375659.3.579.2.531 Unknown [id number] 2.16.840.1.909176.3.579.2.531 Unknown [id number] 2.16.840.1.821175.3.579.2.531 Worker's Compensation [employer] [id number] Social History Date Type Detail Facility Caffeine use Caffeine use -[facility] 250 DO Work Phone: Comment on above: OCCASIONAL COFFEE; QUIT 07/19 PPD; Start: 06-01-2021 End: 05-11-2023 Tobacco smoking status TNIS Never smoked tobacco (finding) [facility] Start: 1965 Sex Assigned At Female F [facility] Sex Assigned At Female [facility] Tobacco smoking status Never [facility] [place] Start: 05-11-2023 Tobacco use and exposure Smokeless tobacco non-user [facility] Work Phone: Start: 05-11-2023 Alcohol intake Current drinke r of alcohol (finding) [facility] Work Phone: Start: 05-11-2023 Alcohol Comment social [facility] Work Phone: Start: 1965 Sex Assigned At Not on file [facility] Work Phone: Start: 05-01-2023 End: 05-11-2023 Exposure to SARS-CoV-2 (event) Not sure [facility] Start: 05-31-2023 Tobacco smoking stat us NHIS Ex-smoker (finding) [facility] Functional Status Date Assessment Result Facility 02-24-2023 Functional Status N/A [facility] 05-19-2022 Functional Status N/A [facility] 05-10-2022 Functional Status N/A [facility] Clinical Notes 02-16-2022 to 05-11-2023 Assessment & Plan Note - KADE Riggs - 05/11/2023 8:41 AM EDTAssessment & Plan Note - KADE Riggs - 05/11/2023 8:41 AM EDTPatient Instructions Note Date & Type Note Facility 05-11-2023 Evaluation + Plan note Associated Problem(s): SOB (shortness of breath) on exertion No evidence of volume overload Minimal complaints mostly due to deconditioning [facility] Work Phone: 05-11-2023 Miscellaneous Notes Associated Problem(s): [...] coronaries: EF 40% documented in this encounter [facility] Work Phone: 05-11-2023 Evaluation + Plan note Associated Problem(s): Hypertension Optimal in office [facility] Work Phone: 05-11-2023 Evaluation + Plan note Associated Problem(s): Non-ischemic cardiomyopathy (CMS/HCC) HF improved EF 64% December 2020 MUGA (08/2020 TTE EF 30%) FC II Stage C Remains on optimal GDMT [facility] Work Phone: 05-11-2023 Evaluation + Plan note Associated Problem(s): Morbid obesity (CMS/HCC) Reviewed the merits of healthy lifestyle choices on overall cardiovascular health. [facility] Work Phone: 05-11-2023 Evaluation + Plan note Associated Problem(s): Sleep apnea Remains compliant with CPAP [facility] Work Phone: 05-11-2023 Evaluation + Plan note Associated Problem(s): Cardiac and Vasculature 2017 Cardiac cath angiographically normal coronaries: EF 40% [facility] Work Phone: 05-11-2023 History of Presen t [...] She is able to walk into the [facility] without any complaints. She is actively working on weight loss. 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 Denies any change [...] choices on overall cardiovascular health. Non-ischemic cardiomyopathy ([facility]) HF improved EF 64% December 2020 MUGA [...] contact the office if new symptoms arise. 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 Reviewed diet, exercise and weight control. Reviewed medications and side effects in detail. Amanuel Valladares MSN, MEDICAL RESEARCH TECH-PLANT ACCOUNTANT, PMHNP-[facility] Please excuse any errors in grammar or translation related to this dictation. Voice recognition software was utilized to prepare this document. documented in this encounter [facility] Work Phone: 05-11-2023 Instructions KADE Riggs - [...] contact the office if new symptoms arise. 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 Check your abscess every day for signs [...] provider. Document Revised: 04/12/2022 Document Reviewed: 04/12/2022 [employer] Patient Education 2022 [employer] 02/24/2023 13:18:12 Cellulitis, Adult Cellulitis, Adult Cellulitis [...] Follow these instructions at home: Medicines Take spqq-kvm-qbaidnx and prescription medicines only as told by [...] such as antibiotic medicines or antihistamines. Take xfye-uvn-mujolyg and prescription medicines only as told by [...] provider. Document Revised: 04/15/2022 Document Reviewed: 04/15/2022 [employer] Patient Education 2022 [employer]. Follow Up Care 02/24/2023 11:55:51 With:Jose Antonio Garza Address: [address] [id number] Business (1) When:02/27/2023 13:03:40 [facility] 02-24-2023 Evaluation + Plan note Extrac edd from: Title:ED Note Author:Rodrick Mobley PA-C te:02/24/23 Abscess (L02.91: Cutaneous a bscess, unspecified) Cellulitis (L03.90: Cellulitis, unspecified) Orders: cephalexin, 500 mg = 1 cap(s), Oral, TID, Take one capsule by mouth three times a day for ten days, # 30 cap(s), Refills(s) 0, Pharmacy: [facility], 155, cm, 02/24/23 12:00:00 EDT, Height/Length Dosing, 108.2, kg, 02/24/23 12:00:00 EDT, Weight Dosing doxycycline, 100 mg = 1 tab(s), Oral, BID, X 10 day(s), # 20 tab(s), Refills(s) 0, Pharmacy: [facility], 155, cm, 02/24/23 12:00:00 EDT, Height/Length Dosing, 108.2, kg, 02/24/23 12:00:00 EDT, Weight Dosing Post-op [facility]05-11-2023 Evaluation note* Encounter Date Diagnosis Assessment Notes Treatment Notes Treatment Clinical Notes November, Lumbosacral radiculopathy (ICD-10 - M54.17) IrReviewed x-ray of the pelvis from 09/29/2022 and which shows healing pubic Tina fractures. Upon examination noted right SI joint [...] continue with current prescriptions and will get busu-doo-fypcoam Thermo patches. Follow-up in 6 weeks. Medical [...] Z13.31) PHQ reviewed score 0 negative screening [employer] Other 03-15-2023 Evaluation note* Encounter Date Diagnosis [...] with me on a as needed basis. [facility] Other 01-13-2023 Evaluation note* Encounter Date Diagnosis [...] right lower extremity. Recommended continued Tylenol and iuwb-cbv-bcrprvk anti-inflammatory use. Also recommended continued calcium and vitamin D supplementation which she has already been doing. I will plan to check back with her in about 8 weeks with repeat AP pelvis, inlet, outlet views to check on the healing progress. [facility] Other 12-21-2022 Evaluation note* Encounter Date Diagnosis [...] work until we get these MRI results. [facility] Other 11-02-2022 NoteChief Complaint consultation for right axilla abscess [facility] Staff 56 year old female presents on [...] Ovarian cancer: Sister. Immuniza (more content not included)...[facility]Result Comment: Electronically Signed By: DENISSE BRUNNER, Jose Carlos Davis\Date and Time Signed: 05/19/22 15:38 [id number] Evaluation + Plan noteExtracted from: Title:ED Note Author:Carlos Mamadou Date: Finger laceration (S61.219A: Laceration without foreign body of unspecified finger without damage to nail, initial encounter) Orders: tetanus/diphtheria/pertussis, acel (Tdap), 0.5 mL, Injection, Intramuscular-Immunization, Once, Stop date 05/10/22 9:16:00 EDT, STAT, Start date 05/10/22 9:16:00 EDT [facility]10-24-2022 Hospital Discharge instructions Follow Up Care 05/10/2022 09:04:11 With:Jose Antonio Garza Address: [address] [place], [place] [id number] Business (1) When:Within 3 Day(s) [facility]08-02-2022 NotePROCEDURE: XR HIPS HEATH 5V W PELVIS [...] by: JOSÉ MIGUEL SERNA Date: 2022-02-16 06:14[facility] Future Appointments Appointment Date:05/25/2022 02:40:00 PM Scheduled Provider:Jose Carlos MADRID MD Location:[facility] Appointment Type: Established 15 Diagnostic Tests Pending * Wound Culture 05/19/22 General Surgery [place] Evaluation noteNo assessment information available [facility] Work Phone: [facility] Other Evaluation note* Diagnosis Non-ischemic cardiomyopathy (CMS/HCC)- Primary Other primary cardiomyopathies Primary hypertension Unspecified essential hypertension Obstructive sleep apnea syndrome Obstructive sleep apnea (adult) (pediatric) Morbid obesity (CMS/HCC) Morbid obesity Hypertension, unspecified type SOB (shortness of breath) on exertion Shortness of breath documented in this encounter [facility] Work Phone: History general Narrative - Reported* Type Description Date Medical History RA Surgical History hysterectomy Surgical History cholecystectomy Surgical History appendectomy Surgical History left foot surgery [facility] Other Hishmof general Narrative - Reported* Type Description Date Medical History RA Surgical History hysterectomy Surgical History cholecystectomy Surgical History appendectomy Surgical History left foot surgery Hospitalization History see surg HX [facility] Other Hospital course Narrative No data available for this section [facility] No data available for this section General Surgery [place] Progress note No data available for this section [facility] Consultation (Routine) - Authorized Specialty Diagnoses / Procedures Referred By Reema rodriguez Referred To Contact Cardiology Diagnoses Non-ischemic cardiomyopathy (CMS/HCC) Primary hypertension Obstructive sleep apnea syndrome Procedures Follow Up In Cardiology Amanuel Valladares APRN-CNP [address] [id number], [place] [phone] Referral ID Status Reason Start Date Expiration Date V isits Requested Visits Authorized [id number] Authorized 05/11/2023 05/10/2024 1 1 [facility] Work Phone: Summary Purpose Family History No [...] 1 Lumbosacral radiculo vanessa (M54.17) Referral Organization [facility] Referring Provider First Name Nancy Referring Provider Last Name Steffi Referring Provider Specialty Nurse Pract itioner Referred Organization [facility] Referred Address [address], [place],[address] Referred Provider Specialty Physical The rapist Referral Priority Routine Reason evaluate for Si inje ction Diagnosis 1 Lumbosacral radiculo vanessa (M54.17) Referral Organization [facility][1] urosurger Referring Provider First Name Nancy Referring Provider Last Name Steffi Referring Provider Specialty Nurse Pract itioner Referred Organization [facility] Pain Managemen t Referred Provider Maxi Glez Referred Address [address] [address] ,[place], [place],[address] Referred Provider Specialty Pain Medicin e Referral Priority Routine Additional Source Comments INFORMATION SOURCE (unrecogn ized section and content) DATE CREATED AUTHOR 01/11/2018 [facility] DATE CREATED AUTHOR AUTHOR'S ORGANIZ ATION 08/11/2018 [facility] DATE CREATED AUTHOR AUTHOR'S ORGANIZ ATION 10/20/2018 [facility] DATE CREATED AUTHOR AUTHOR'S ORGANIZ ATION 10/21/2018 [facility] DATE CREATED AUTHOR AUTHOR'S ORGANIZ ATION 01/28/2021 [facility] DATE CREATED AUTHOR AUTHOR'S ORGANIZ ATION 03/19/2022 [facility] DATE CREATED AUTHOR AUTHOR'S ORGANIZ ATION 11/19/2022 [facility] DATE CREATED AUTHOR AUTHOR'S ORGANIZ ATION 02/25/2023 [facility] ical Center DATE CREATED AUTHOR AUTHOR'S ORGANIZ ATION 05/15/2023 [facility] DATE CREATED AUTHOR AUTHOR'S ORGANIZ ATION 08/01/2023 [facility] dical Specialists EPIC DATE CREATED AUTHOR AUTHOR'S ORGANIZ ATION 10/07/[address] [facility] Care Teams (unrecognized sec tion and content) [...] Kyle Call II, MD Attending Provider Active Pet Feeder Relationship Specialty Start Date End Date Jose Antonio Garza MD [address] [place] [address] PCP - General 09/04/20 Team Status: Inactive Member Role Status Dates Jose Antonio aGrza MD Primary Care Provider Active Stef Molina [...] BE BASED ON THE PRIMARY CLINICAL RECORDS. [facility] [employer] [facility]. provides no warranty or guarantee of the accuracy or completeness of information in this document.
== END 2023-10-10 07:44 | disposition home or self-care (01) ==
LOC: EC 07:43
PROVIDERS: PCP Family Medicine; Visit Provider Orthopaedic Surgery
DX: S32.591K Other specified fracture of right pubis, subsequent encounter for fracture with nonunion (principal)
CPT/HCPCS: 72170

== ENCOUNTER 2023-11-22 09:54 | Outpatient (OUT) | payer BC, SELFPAY ==
--- NOTE | 2023-11-22 10:52 | XR_ITS ---
The [address] [address] Patient Name: FELICITY PHILLIPS MRN: [id number] date: 1965 Sex: F [facility] Current Patient Location: Accession/Order Number: [id number] Exam Date: 11/22/2023 10:45 Report Date: 11/23/2023 06:37 At the request of: FCO CANDELARIO Procedure: XR chest 2V EXAMINATION: XR chest 2V HISTORY: Preop exam COMPARISON: No relevant comparison available. FINDINGS: LUNGS: No significant pulmonary parenchymal abnormalities. VASCULATURE: No increased pulmonary vasculature. PLEURA: No pneumothorax, effusion, or pleural thickening. CARDIAC: No cardiomegaly or cardiac silhouette abnormality. MEDIASTINUM: No visible mass or adenopathy. BONES: No fracture or visible bone lesion. OTHER: Negative. XR/XR chest 2V IMPRESSION: 1. Normal examination. Electronically authenticated by: JOSÉ MIGUEL SERNA Date: 11/23/2023 06:37
[2023-11-22 11:12] LABS: Basophils Absolute Auto 0.1 10^3/uL (0.0-0.1); Basophils Percent Auto 1.1 % (0.2-2.0); Eosinophils Absolute Auto 0.3 10^3/uL (0.0-0.7); Eosinophils Percent Auto 3.5 % (0.9-7.0); Hematocrit 35.6 % (36.0-48.0); Hemoglobin 11.6 g/dL (12.0-16.0); Immature Granulocytes Abs Auto 0.05 10^3/uL (0.00-0.03); Immature Granulocytes Pct Auto 0.6 % (0.0-0.5); Lymphocytes Absolute Auto 2.1 10^3/uL (1.2-3.8); Lymphocytes Percent Auto 24.7 % (20.5-60.0); Mean Corpuscular HGB Conc 32.6 g/dL (29.9-35.2); Mean Corpuscular Volume 95.2 fL (81.0-99.0); Mean Platelet Volume 10.1 fL (9.5-13.5); Monocytes Absolute Auto 0.7 10^3/uL (0.3-0.8); Monocytes Percent Auto 8.4 % (1.7-12.0); Neutrophils Absolute Auto 5.3 10^3/uL (1.4-6.5); Neutrophils Percent Auto 61.7 % (43.0-75.0); Platelet Count 187 10^3/uL (150-450); Red Blood Count 3.74 10^6/uL (4.20-5.40); Red Cell Distribution Width 12.5 % (11.0-15.0); White Blood Count 8.5 10^3/uL (4.0-11.0)
[2023-11-22 11:33] LABS: INR 0.99; Partial Thromboplastin Time 25.2 sec (22.3-36.2); Prothrombin Time 10.5 sec (9.0-11.6)
[2023-11-22 11:38] LABS: Alanine Aminotransferase 48 U/L (14-59); Albumin Globulin Ratio 1.1; Albumin Level 3.3 g/dL (3.4-5.0); Alkaline Phosphatase 91 U/L (46-116); Anion Gap 13.7; Aspartate Amino Transferase 32 U/L (15-37); BUN Creatinine Ratio 21.8; Bilirubin Direct 0.1 mg/dL (0.0-0.2); Bilirubin Total 0.5 mg/dL (0.2-1.0); Calcium 9.1 mg/dL (8.5-10.1); Carbon Dioxide 25.4 mmol/L (21.0-32.0); Chloride 108 mmol/L (98-107); Estimated GFR (African America >60 (>=60); Estimated GFR (Non-African Ame >60 (>=60); Glucose 112 mg/dL (74-106); Potassium 4.1 mmol/L (3.5-5.1); Sodium 143 mmol/L (136-145); Total Protein 6.3 g/dL (6.4-8.2)
== END 2023-11-22 09:55 | disposition home or self-care (01) ==
PROVIDERS: PCP Family Medicine; Visit Provider Orthopaedic Surgery Orthopaedic Surgery of the Spine
DX: Z01.810 Encounter for preprocedural cardiovascular examination (principal); Z01.812 Encounter for preprocedural laboratory examination; M48.062 Spinal stenosis, lumbar region with neurogenic claudication
CPT/HCPCS: 71046; 80048; 80076; 85025; 85610; 85730; 86850; 86900; 86901; 87081

== ENCOUNTER 2023-12-01 12:31 | Outpatient (OUT) | payer BC, SELFPAY ==
--- NOTE | 2023-12-01 13:00 | CA_ITS ---
Patient Name: FELICITY PHILLIPS MR#: [id number] : 1965 Exam Date: 12/01/2023 Ordering Doctor: DR Ti Garza . ECHOCARDIOGRAM REPORT PROCEDURE: CA ECHO DOPPLER COMPLETE INDICATIONS: Abnormal result of cardiovascular function study, h/o congestive heart failure COMPARISON: None. DESCRIPTION: COMPLETE ECHOCARDIOGRAM Real-time transthoracic echocardiography with 2D, M-mode, spectral and color flow Doppler performed. QUALITY: Technical quality was good. 61 , 225#, BSA 1.99 m2, BP 154/80 LEFT VENTRICLE: Mild dilatation. Mild concentric left ventricular hypertrophy. Normal systolic function. LV EF: Normal left ventricular ejection fraction, (55%). DIASTOLIC: Normal diastolic function. ATRIAL SEPTUM: LEFT ATRIUM: Normal chamber size. RIGHT ATRIUM: Normal chamber size. RIGHT VENTRICLE: Normal chamber size. Normal right ventricular systolic function. TRICUSPID VALVE: Normal mobility and thickness. No stenosis with no regurgitation. Unable to assess right-sided pressures due to lack of measurable tricuspid regurgitation. MITRAL VALVE: Normal mobility and thickness. No evidence of mitral valve stenosis. There is no mitral annular calcification. Mild mitral regurgitation. AORTIC VALVE: Normal trileaflet appearance. No visible sclerosis. Normal leaflet mobility. No evidence of aortic valve stenosis. No aortic regurgitation. AORTIC ROOT: Normal diameter and appearance. Ascending aorta is normal in size. PULMONIC VALVE: Normal thickness and mobility. No stenosis. No regurgitation. PERICARDIUM: No evidence of pericardial effusion. IVC: Collapses with inspirations. PLEURA: CONCLUSION: 1. Mild concentric left ventricular hypertrophy with normal left ventricular systolic function. LVEF is 55%. 2. Normal right ventricular size and systolic function. 3. Normal diastolic function. 4. Mild mitral regurgitation. Adult Echocardiography Procedure Report Left Ventricle LVEDD (3.7 - 5.6 cm): 5.32 cm LVESD (2.2 - 4.0 cm): 3.90 cm LVIVS thickness (0.6 - 1.2 cm): 0.91 cm LVPW thickness (0.5 - 1.0 cm): 1.12 cm E - e': 7.66 LVOT Max Gradient: 3.22 mm[Hg] LVOT Area (cm2): 0.90 m/s Peak Velocity (LVOT): 0.90 m/s Mean Velocity (LVOT): 0.63 m/s LVOT Diameter 2.09 cm Left Atrium LA Volume Index (2D A2C): 20.17 ml/m2 Left Atrium Systolic Dimension: 3.01 cm Mitral Valve MV E to A Ratio: 1.41 Mitral Valve A-Wave Peak Velocity: 0.72 m/s Mitral Valve E-Wave Peak Velocity: 1.02 m/s Right Ventricle Aorta AO Root Diam: 2.97 cm Ascending Ao Diam: 2.48 cm Aortic Valve AoV Area (Peak Demetrio): 2.01 cm2, 2.01 cm2 AoV Area (VTI): 2.18 cm2, 2.18 cm2 Peak Velocity(Antegrade Flow): 1.54 m/s Peak Gradient(Antegrade Flow): 9.44 mm[Hg] Mean Velocity(Antegrade Flow): 1.02 m/s Mean Gradient(Antegrade Flow): 4.75 mm[Hg] Velocity Time Integral: 29.79 cm Tricuspid Valve Pulmonic Valve Peak Gradient: 4.03 mm[Hg], 3.53 mm[Hg] Right Atrium Right Atrium Systolic Pressure: 24.43 ml, 24.43 ml Dictated by: Dakota Mariee M.D. on 12/01/2023 at 17:29 Approved by: Dakota Mariee M.D. on 12/01/2023 at 17:32
== END 2023-12-01 12:32 | disposition home or self-care (01) ==
LOC: CARD 12:31
PROVIDERS: PCP Family Medicine; Visit Provider Family Medicine
DX: R94.30 Abnormal result of cardiovascular function study, unspecified (principal)
CPT/HCPCS: 93306

== ENCOUNTER 2023-12-02 15:40 | Inpatient (IN) | payer BC, SELFPAY ==
[2023-11-22 10:45] VITALS: BP 138/82; PULSE 69; TEMP 36.4; O2SAT 96; BMI 40.7
[2023-12-02] VITALS (14 sets, daily range): BP systolic 86–164; BP diastolic 46–98; PULSE 58–76; TEMP 36.3–36.9; O2SAT 91–100; BMI 40.1
--- NOTE | 2023-12-02 | FL_ITS ---
[address] [address] Patient Name: FELICITY PHILLIPS MRN: [id number] date: 1965 Sex: F Assigned Patient Location: [facility] Current Patient Location: [place] Accession/Order Number: [id number] Exam Date: 12/02/2023 13:00 Report Date: 12/05/2023 08:17 At the request of: FCO CANDELARIO Procedure: FL fluoroscopy <1hr NON-READ EXAM: FL fluoroscopy <1hr NON-READ HISTORY: TECHNIQUE: FINDINGS: Please see Operative Report. Electronically authenticated by: RADIOLOGIST NO Date: 12/05/2023 08:17
[2023-12-02] MEDS: LACTATED RINGER'S SOLUTION 1,000 ML 50 ML IV ×2 (10:46→14:14)
[2023-12-02] MEDS: CEFAZOLIN SODIUM/DEXTROSE,ISO 2 GM/50 ML PIGGYBACK IV ×2 (12:12→20:49)
[2023-12-02] MEDS: VANCOMYCIN HCL 1,000 MG VIAL 1000 MG TOPICAL (14:00)
--- NOTE | 2023-12-02 14:42 | PM.ONB ---
Brief Operative Note Date of procedure: 12/02/23 Pre-op diagnosis general: L4-5 degenerative disc disease with stenosis and radiculopathy Post-op diagnosis: same as pre-op Procedure: L4-5 decompression and fusion Anesthesia: RADHA Surgeon: Jose Alexander Appraisal Specialist: Rodriguez Weber Estimated blood loss (mL): 400 Pathology: none sent Condition: stable Disposition: PACU
--- NOTE | 2023-12-02 14:45 | W.PM.OPNOTE ---
Surgery Operative Note Operative Note Procedure Date: 12/02/23 Time Out Performed: yes Pre-op Diagnosis: 1. L4-5 spondylolisthesis, grade 1 with stenosis and radiculopathy 2. Obesity with BMI of 40.1 Post-op Diagnosis: same as pre-op Procedures performed: 1. ?L4-5 bilateral laminectomy, partial medial facetectomies and foraminotomies of L4 and L5 nerve roots 2. ?L4-5 posterior spinal fusion. 3. ?L4-5 posterior spinal instrumentation, Medynus, Goblin instrumentation. 4. ?Use of local autograft bone Anesthesia: RADHA Primary Surgeon: Jose Alexander Complications: Durotomy Estimated blood loss (mL): 400 Findings: stenosis Specimens: None Indications for Procedures: INDICATIONS: ?This is a 58-year-old female with refractory back and leg pain from degenerative spondylolisthesis and lumbar stenosis at L4-5. ?Patient has failed full conservative therapy including medication management, physical therapy, and epidural steroid injections. Due to the persistence of symptoms and reduction in the ADLs, patient elected surgical treatment.?Patient, therefore, understood indications for the surgery as well as its risks, benefits, and alternatives. ?These risks include but are not limited to paralysis, infection, hematoma, dural tear, nerve root injury, nonunion, DVT/PE, stroke, MO, etc. ?All questions were answered. Informed consent was obtained. Detailed description of Procedure: OPERATIVE PROCEDURE: ?The patient was taken to the operating room by the Anesthesiology Service and had satisfactory general anesthesia.?A first-generation cephalosporin was given within 1 hour of surgical incision. ?2 gm of cefazolin was given IV. ?Venous thromboembolic prophylaxis was performed with sequential devices.?The patient was then positioned prone on a standard OSI frame with the abdomen hanging free and all bony prominences well padded. ?The low back was then prepped and draped in its entirety in the usual sterile fashion. Before incision, a formal timeout was taken per protocol. We next took a midline longitudinal approach and performed subperiosteal dissection out to the tips of the transverse processes of L4 and L5.?Intraoperative radiographic localization of level was confirmed. ?We then began the laminectomy as well as decompression by removing the spinous process of L4. ?We entered the spinal canal, resecting the ligamentum flavum in its entirety over this region. Patient had significant stenosis in the lateral recess and neural foramina.?Partial medial facetectomy was then performed with an osteotome to get lateral to the facet overhang, but just medial to the pedicles and nerve roots. ?Kerrison's were then used to perform foraminotomies of the L4 and L5 nerve roots bilaterally. In this way, we completed decompression at L4-5 with foraminotomies of the L4 and L5 nerve roots bilaterally. A small poke hole durotomy occurred during decompression. This was tightly repaired using a 5-0 Prolene. DuraSeal applied over top. Water tight seal achieved. Satisfied with this, we then turned our attention to perform spinal instrumentation and posterolateral fusion. Using anatomic landmarks and guided by direct visualization of the pedicles from within the canal, pedicle screws were placed bilaterally at L4 and L5. ?All the screws were completely interosseous as determined by bony palpation. ?Before the screws were inserted, the transverse processes were decorticated with a high-speed bur at L4 and L5. ?Local autograft bone was placed over the decorticated elements bilaterally from L4-5. ?The screws were then inserted which were under tapped by 1 mm. ?Two rods were placed from L4-5, set screws engaged and tightened down to their final torque. ?Everything was tightened down. ?A very rigid construct was achieved. ?Final x-ray was taken, demonstrated good position of the spine and all of the implants. Satisfied with this, we then achieved hemostasis. ?We then copiously irrigated the wound. ?We then inserted a Hemovac drain through a separate stab incision. ?The wound was then closed in layer with interrupted 1 and 2-0 Vicryl sutures and dusted with vancomycin powder. ?A 3-0 Monocryl was used for the skin. The skin edges were sealed with Dermabond. ?A dry sterile dressing was applied. ?The patient was then returned to the hospital bed, extubated, and taken to the recovery room in stable condition. Spinal cord monitoring remained stable throughout the operation. POSTOPERATIVE CARE: ?The patient will be recovered in PACU and then a regular nursing floor. ??Once the drainage is low and pain is under control, patient will be discharged home per clinical indication. Patient will follow up in the office in 6 weeks. ?At that time, AP and lateral x-rays of the lumbar spine will be obtained to assess instrumentation and fusion. MODIFIER 22: ?Due to the patient's BMI greater than 30, modifier 22 will be applied due to the patient's case taking 50% longer due to poor visualization and orientation. IMMIGRATION CASE WORKER: ?SVETLANA Oneill PA-C, assisted throughout the procedure with positioning, draping, retraction, wound closure, and dressing application. Senior Accountant Cpa: Rodriguez Weber
--- NOTE | 2023-12-02 14:57 | PC.NURSE ---
DROPPED OXYGEN DOWN TO 5 LITERS PATIENT IS AROUSABLE BU WHEN SLEEING DROPS INTO THE LOW 80'S
--- NOTE | 2023-12-02 15:12 | PC.NURSE ---
PATIENT HAS FEELING BILATERAL LOWER EXTREMITIES WARN AND PINK.
--- NOTE | 2023-12-02 15:45 | SWNOTE1 ---
SW had a consult for home health. SW stopped in to room and spoke with . Pt was asleep in the bed. SW advised pt's that pt has a hemovac adn possibly will be discharged with it depending on drainage. Pt's was aware and he voiced they have been for 39 years and she has had other surgeries in past and he has cared for her. Pt's voiced he will care for her needs at discharge and he does not feel like he will need home health to assist at this time. SW to follow as needed.
[2023-12-02] MEDS: OXYCODONE HCL 5 MG TABLET PO ×2 (16:18→23:38)
[2023-12-02] MEDS: ACETAMINOPHEN 325 MG TABLET 650 MG PO (16:18)
[2023-12-02] MEDS: ONDANSETRON 4 MG RAPDIS TABLET SL (16:25)
--- NOTE | 2023-12-02 16:45 | PC.NURSE ---
rn made contact with the PA Baljinder, regarding patient stating she was supposed to have a back brace linux kernel developer brought to the hospital today. PA didnt know anything about it and per her, the office fitted her with the brace and whoever fitted her for it would have given the linux kernel developer as well . Well per the patient when she was fitted the office did not have the linux kernel developer at that time and told the patient it would be brought to the hospital the day of surgery. Well no one has brought it to our knowledge. Per the PA, patient can still work with therapy tomorrow without back brace. Dr. Garza also informed of situation.
[2023-12-02] MEDS: CARVEDILOL 12.5 MG TABLET PO (18:28)
[2023-12-02] MEDS: 0.9 % SODIUM CHLORIDE 1,000 ML 125 ML IV (18:28)
[2023-12-02] MEDS: CYCLOBENZAPRINE HCL 10 MG TABLET PO (19:24)
[2023-12-02] MEDS: ONDANSETRON PF 4 MG/2 ML VIAL IV (19:24)
[2023-12-02] MEDS: SENNOSIDES/DOCUSATE SODIUM 1 TAB TABLET PO (20:50)
[2023-12-02] MEDS: SACUBITRIL/VALSARTAN 24 MG-26 MG TABLET 2 TAB PO (20:50)
[2023-12-03] VITALS (11 sets, daily range): BP systolic 133–172; BP diastolic 72–87; PULSE 68–81; TEMP 36.6–37.1; O2SAT 91–95
[2023-12-03] MEDS: 0.9 % SODIUM CHLORIDE 1,000 ML 125 ML IV (02:12)
[2023-12-03 04:36] LABS: Hematocrit 31.4 % (36.0-48.0); Hemoglobin 10.6 g/dL (12.0-16.0)
[2023-12-03 04:44] LABS: Anion Gap 12.4; BUN Creatinine Ratio 17.3; Carbon Dioxide 24.6 mmol/L (21.0-32.0); Chloride 107 mmol/L (98-107); Estimated GFR (African America >60 (>=60); Estimated GFR (Non-African Ame >60 (>=60); Glucose 155 mg/dL (74-106); Sodium 140 mmol/L (136-145)
[2023-12-03] MEDS: CARVEDILOL 12.5 MG TABLET PO ×2 (04:50→18:04)
[2023-12-03] MEDS: CEFAZOLIN SODIUM/DEXTROSE,ISO 2 GM/50 ML PIGGYBACK IV (04:50)
[2023-12-03] MEDS: OXYCODONE HCL 5 MG TABLET PO ×2 (07:14→13:01)
[2023-12-03] MEDS: CYCLOBENZAPRINE HCL 10 MG TABLET PO ×2 (07:14→13:01)
--- NOTE | 2023-12-03 08:34 | P.PN_ITS ---
Progress Note: Subjective Subjective Interval history: Pain in back is somewhat persisting, but no more pain down her legs. Exam Constitutional Vital Signs, click to edit/add: Last Vital Signs Temp 98.0 F 12/03/23 08:00 Pulse 69 12/03/23 08:00 Resp 16 12/03/23 08:00 BP 143/76 H 12/03/23 08:00 Pulse Ox 93 L 12/03/23 08:00 O2 Del Method Room Air 12/03/23 08:00 O2 Flow Rate 8 12/02/23 15:32 Documenting provider has reviewed patient's vital signs: yes Common normals: no apparent distress Chest Common normals: inspection of chest normal Respiratory Common normals: normal respiratory effort, no retractions and clear to auscultation bilaterally Cardio Common normals: regular rate, regular rhythm and no murmurs Back & Pelvis Other: Deferred to surgery Progress Note: Objective Labs Labs: Short CBC 12/03/23 Range/Units 04:16 Hgb 10.6 L (12.0-16.0) g/dL Hct 31.4 L (36.0-48.0) % BMP 12/03/23 04:16 Sodium 140 Potassium 4.0 Chloride 107 Carbon Dioxide 24.6 BUN 13.0 Creatinine 0.75 Glucose 155 H Calcium 8.0 L Progress Note: A&P Assessment and Plan (1) Rheumatoid arthritis: (2) Lumbar radiculopathy: Plan Lumbar radiculopathy, status post surgical intervention-plan for surgery from a pain control standpoint. Pain is improved from prior to surgery Hypertension with a history of hypertensive emergency-better this morning. Continue to monitor, continue home medications Iron deficiency anemia-we will monitor as an outpatient Hyperglycemia-continue to monitor Rheumatoid arthritis-continue with home medications Admission status: Although patient's pain is improved, not to the point that she can ambulate safely. Medically necessary treatment will span 2 midnights. Changed to inpatient status.
[2023-12-03] MEDS: SPIRONOLACTONE 25 MG TABLET PO (09:02)
[2023-12-03] MEDS: SENNOSIDES/DOCUSATE SODIUM 1 TAB TABLET PO ×2 (09:06→21:52)
[2023-12-03] MEDS: BISACODYL 5 MG TABLET PO (09:06)
[2023-12-03] MEDS: LEFLUNOMIDE 20 MG TABLET PO (09:07)
[2023-12-03] MEDS: FUROSEMIDE 40 MG TABLET PO (09:07)
[2023-12-03] MEDS: SACUBITRIL/VALSARTAN 24 MG-26 MG TABLET 2 TAB PO ×2 (09:07→21:51)
[2023-12-03] MEDS: POLYETHYLENE GLYCOL 3350 17 GM POWDER PACKET PO (09:08)
[2023-12-03] MEDS: ACETAMINOPHEN 325 MG TABLET 650 MG PO (11:34)
--- OUTSIDE RECORDS SUMMARY | 2023-12-03 16:44 | XMS_ITS | CCD ---
Author Organization [facility] Care Team Providers Care Administrative Processor Name Role Phone PHYSICIAN, DEFAULT Unavailable Unavailable PHYSICIAN, DEFAULT Unavailable Unavailable CEASAR CUNHA Attending Unavailab JOSE ANTONIO Romero Referring Unavailable CEASAR CUNHA Attending Unavailab JOSE ANTONIO Romero Referring Unavailable UNKNOWN, PROVIDER Attending Unavailable UNKNOWN, PROVIDER Primary Care Unavailable Jose Antonio Garza Unavailable Unavailable Unavailable MD Jose Antonio Garza Primary Care Provider MD Kyle Calderon Attending Provider [phone] Jose Antonio Garza Primary Care Physician MD Jose Antonio Garza Primary Care Provider MATTHEW Bridges Emergency Provider [phone] MD Kyle Call II Attending Provider Kyle Call II Unavailable MD Jose Antonio Garza Primary Care Provider MATTHEW Bridges Emergency Provider [phone] MD Kyle Call II Attending Provider MD Jose Antonio Garza Primary Care Provider MD Kyle Call II Attending Provider MD Kyle Calderon Attending Provider DR JOSE [...] Unavailable HOY ., DR BRADY Admitting Unavailable DONALDSON, DR UNA Mims Consulting Unavailable Nancy Kapdaia Unavailable Newton, Maxi Unavailable MD Jose Antonio Garza Primary Care Provider MD Jose Antonio Garza Primary Care Provider MD Kyle Calderon Attending Provider [phone] Jose Antonio Garza MD Primary Care Provider [phone] MD Jose Antonio Garza Primary Care Provider MD Kyle Calderon Attending Provider MD Stef Molina Jr Emergency Provider BRITTANY CHOUDHURY Attending Unavailable BRITTANY CHOUDHURY Referring Unavailable BRITTANY CHOUDHURY Attending Unavailable RBITTANY CHOUDHURY Attending Unavailable BRITTANY CHOUDHURY Referring Unavailable Kyle Calderon Admitting Unavailable Kyle Calderon Attending Unavailable Kayla Jose Antonio M Primary Care Unavailable Kyle Calderon Attending Unavailable Kyle Calderon Admitting Unavailable Janny, Jose Antonio M Primary Care Unavailable Kayla, Jose Antonio M Primary Care Unavailable Kyle Calderon Admitting Unavailable Kyle Calderon Attending Unavailable Stef Molina Jr Admitting Unavailable Stef Molina Jr Attending Unavailable Tarik Garzalas M Primary Care Unavailable Kyle Calderon Admitting Unavailable Kyle Calderon Attending Unavailable Hoy, Jose Antonio M Primary Care Unavailable AMANUEL VALLADARES Attending Unavailable JOSE ANTONIO GARZA Primary Care Unavailable AMANUEL VALLADARES Attending Unavailable JOSE ANTONIO GARZA Primary Care Unavailable FCO COLLIER Referring Unavailable FCO COLLIER Attending Unavailable Briana Winters Attending Unavailable Allergies Allergy Classification Reported Allergen(s) Allergy Type Date of Onset Reaction(s) Facility (13 sources) Sulfamethoxazole / Trimethoprim; Translations: [SULFAMETHOXAZOLE-TR IMETHOPRIM] Drug Allergy 7 [facility] Repository (20 sources) Etanercept; Translations: [etanercept] Drug Allergy 1 Unknown (qualifier value), Unknown [facility] (20 sources) Methotrexate; Translations: [methotrexate] Drug Allergy 1 Unknown [facility] (20 sources) Sulfamethoxazole / Trimethoprim; Translations: [Bactrim DS TABS] Drug Allergy [facility] (10 sources) Sulfamethoxazole; Translations: [sulfamethoxazole] Drug Allergy 7 [facility] (10 sources) Trimethoprim; Translations: [trimethoprim] Drug Allergy 7 [facility] (2 sources) Etanercept; Translations: [Enbrel] Drug Allergy 1 [facility] Repository (1 source) Methotrexate Drug Allergy 1 [facility] Repository (3 sources) Sulfamethoxazole / Trimethoprim; Translations: [Bactrim] Drug Allergy 4 [facility] Repository (1 source) Etanercept Drug Allergy 3 [facility] Repository (1 source) Methotrexate Drug Allergy 3 [facility] Repository Medications Current Medications Medication Drug Class(es) [...] (Coreg) 12.5 mg tablet Indications: Non-ischemic cardiomyopathy (Multi) Take 1 tablet (12.5 mg) by mouth [...] DAILY. Quantity: 180 Refills: 3 Ordered: 18-Mar-2022 Kenton DO Frandy Start : 28-Aug-2020 Active Start: 08-17-2019 take [...] day(s), # 20 tab(s), Refills(s) 0, Pharmacy: [facility], 155, cm, 02/24/23 12:00:00 EDT, Height/Length [...] (Lasix) 40 mg tablet Indications: Non-ischemic cardiomyopathy (Multi) , Hypertension, unspecified type , SOB (shortness [...] Daily, # 30 tab(s), Refills(s) 0, Pharmacy: [facility] Start Date: 12/07/16 Status: Ordered homatropine [...] pain, # 20 tab(s), Refills(s) 0, Pharmacy: [facility], 152.4, cm, 05/21/21 7:42:00 EDT, [...] ritonavir twice daily for 5 days predniSONE 5 mg oral tablet (19 sources) Start: 04-28-2023 take 1 tablet by mouth every twenty-four hours as needed predniSONE (Deltasone) 5 mg tablet Take 1 tablet (5 mg) by mouth once daily as needed. 04/28/2023 Active Start: 07-05-2022 take 40 mg by mouth once daily in the morning Prednisone Active 40 MG PO Every morning 04 21May 31, 2023 12:00am administer with food or milk Start: 12-07-2016 predniSONE 10 mg Tab 0 = 1 -, Oral, As Directed, 6tab/day x7days,5tab/day x7days,4tab/day x7day,3tab/day x7day,2tab/day x7day,1tab/kmbq2seu, # 119 tab(s), Refills(s) 0, Pharmacy: [facility] Start Date: 12/07/16 Status: Ordered take 1 tablet by neida every twenty-four hours predniSONE 20 MG 1 tablet Orally Once a day Active Rituxan (2 sources) [id number] Cytolytic Antibody Start: 05-19-2022 Rituxan Refills(s) 0 Start Date: 05/19/22 Status: Ordered sacubitril 49 mg / valsartan 51 mg oral tablet (14 sources) Angiotensin 2 Receptor Azalea Start: 05-11-2023 take 1 tablet by mouth twice daily Entresto 49-51 mg tablet Indications: Non-ischemic cardiomyopathy (Multi) Take 1 tablet by mouth 2 times [...] (Aldactone) 25 mg tablet Indications: Non-ischemic cardiomyopathy (Multi) Take 1 tablet (25 mg) by mouth [...] days, # 30 cap(s), Refills(s) 0, Pharmacy: [facility], 155, cm, 02/24/23 12:00:00 EDT, Height/Length Dosing, 108.2, kg, 02/24/23 12:00:00 EDT, Weight Dosing Start Date: 02/24/23 Status: Ordered hydroxychloroquine sulfate 200 mg oral tablet (20 sources) Antimalarial, Antirheumatic Agent Start: 2 End: 4 take 1 tablet by mouth once daily [...] [Angina pectoris, unspecified] 03-24-2017 Chronic Essential hypertension (20 sources) Hypertensive disorder; Translations: [Unspecified essential hypertension] [...] 05-10-2022 Episodic Other aftercare (1 source) Other chcf (current) drug therapy; Translations: [Other intermediate project manager (current) drug therapy] Onset: 09-27-2023 Episodic Other [...] RT PUBIS SEQ] Onset: 11-13-2022 Episodic Other non-traumatic joint disorders (7 sources) Hip pain; Translations: [Pain in right hip] 07-05-2022 Episodic Other nutritional; endocrine; and metabolic disorders (12 sources) Body mass index 40+ - severely obese; Translations: [Body Mass Index 40.0-44.9, adult] Onset: 05-19-2022 Chronic Other nutritional; endocrine; and metabolic disorders (15 sources) Morbid obesity; Translations: [Morbid obesity] Onset: 05-10-2023 05-19-2022 Chronic Other nutritional; endocrine; and metabolic disorders (4 sources) Morbid (severe) obesity due to excess calories; Translations: [Morbid (severe) obesity due to excess calories (Multi)] Onset: 05-10-2023 Chronic Beba-; endo-; and myocarditis; cardiomyopathy (except that caused by tuberculosis or sexually transmitted disease) (20 sources) Cardiomyopathy; Translations: [Other primary cardiomyopathies] Onset: 04-28-2023 08-18-2019 Chronic Residual codes; unclassified (11 sources) Sleep apnea; Translations: [Unspecified sleep apnea] [...] 08-18-2019 Episodic Rheumatoid arthritis and related disease (6 sources) Rheumatoid arthritis; Translations: [Rheumatoid arthritis, unspecified] [...] than malignant neoplasm] Onset: 01-30-2018 Episodic Other lower respiratory disease (12 sources) Dyspnea on exertion; Translations: [Shortness of breath] Onset: 04-28-2023 05-11-2023 Episodic Other lower respiratory disease (2 sources) Shortness of breath; Translations: [Shortness of breath] Onset: 04-28-2023 Episodic Other non-traumatic joint disorders (5 sources) Pain in left hip; Translations: [PAIN IN LEFT HIP] Onset: 02-19-2022 Episodic Other non-traumatic joint disorders (4 sources) Pain in right hip; Translations: [PAIN IN RIGHT HIP] Onset: 02-15-2022 Episodic Beba-; endo-; and myocarditis; cardiomyopathy (except that caused by tuberculosis or sexually transmitted disease) (7 sources) Secondary aortitis; 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 Pt prefers to just discharge her chart at this point rather than reschedule her appt as she is having surgery next week; will D/C at her request. Normal [facility] Nonvisit Note - PTon 024 Nonvisit Note - PT Cxl per patient. No message. Conf 11/14 Normal [facility] PT - Assessmentson PT - Assessments [id number]# 1.00TIFF Normal [facility] PT - Consentson 11-01-2023 PT - Consents [id number]# 1.00TIFF [facility] PT - Home Exercise Programon 11-01-2023 PT - Home Exercise Program [id number]# 1.00TIFF [facility] Consent for Treatmenton 10-16 Consent for Treatment [id number]#1 .00TIFF [facility] PT - Orderson 10-28-2023 PT - Orders [id number]#1 .00TIFF Normal [facility] Complete Blood Count Auto Di ffon 09-27-2023 Basophils (Bld) [#/Vol] 0.1 10*3/uL Normal 0.0-0.2 [facility] Comment on above: Performed By: #### E SR, CBC, HEPATIC, CREAT #### [address] Basophils/100 WBC (Bld) 0.9 % Normal . [facility] Comment on above: Performed By: #### E SR, CBC, HEPATIC, CREAT #### [address] Eosinophils (Bld) [#/Vol] 0.1 10*3/uL Normal 0.0-0.45 [facility] Comment on above: Performed By: #### E SR, CBC, HEPATIC, CREAT #### [address] Eosinophils/100 WBC (Bld) 1.5 % Normal . [facility] Comment on above: Performed By: #### E SR, CBC, HEPATIC, CREAT #### [address] Erythrocyte distribution width (RBC) [Ratio] 13.6 % Normal 11.9-15.3 [facility] Comment on above: Performed By: #### E SR, CBC, HEPATIC, CREAT #### [address] Hematocrit (Bld) [Volume fraction] 37.3 % Normal 34.0-46.4 [facility] Comment on above: Performed By: #### E SR, CBC, HEPATIC, CREAT #### [address] Hemoglobin (Bld) [Mass/Vol] 12.5 g/dL Normal 11.8-15.4 [facility] Comment on above: Performed By: #### E SR, CBC, HEPATIC, CREAT #### [address] Lymphocytes (Bld) [#/Vol] 2.0 10*3/uL Normal 1.00-4.8 [facility] Comment on above: Performed By: #### E SR, CBC, HEPATIC, CREAT #### [address] Lymphocytes/100 WBC (Bld) 22.4 % Normal . [facility] Comment on above: Performed By: #### E SR, CBC, HEPATIC, CREAT #### [address] [place] [address] [place] MCH (RBC) [Entitic mass] 30.9 pg Normal 24.7-34.3 [facility] Comment on above: Performed By: #### E SR, CBC, HEPATIC, CREAT #### [address] MCV (RBC) [Entitic vol] 92.4 fL Normal 80-100 [facility] Comment on above: Performed By: #### E SR, CBC, HEPATIC, CREAT #### [address] Mean Corpuscular HGB Conc 33.4 g/dL Normal 32.0-35.0 [facility] Comment on above: Performed By: #### E SR, CBC, HEPATIC, CREAT #### [address] Monocytes (Bld) [#/Vol] 0.7 10*3/uL Normal 0.0-0.8 [facility] Comment on above: Performed By: #### E SR, CBC, HEPATIC, CREAT #### [address] Monocytes/100 WBC (Bld) 7.3 % Normal . [facility] Comment on above: Performed By: #### E SR, CBC, HEPATIC, CREAT #### [address] Neutrophils (Bld) [#/Vol] 6.1 10*3/uL Normal 1.8-7.7 [facility] Comment on above: Performed By: #### E SR, CBC, HEPATIC, CREAT #### [address] Neutrophils/100 WBC (Bld) 67.9 % Normal . [facility] Comment on above: Performed By: #### E SR, CBC, HEPATIC, CREAT #### [address] NRBC% 0.1 /100{WBC} Normal 0-0.5 [facility] Comment on above: Performed By: #### E SR, CBC, HEPATIC, CREAT #### [facility] [address] Platelet mean volume (Bld) [Entitic vol] 8.8 fL Normal 6.3-10.7 [facility] Comment on above: Performed By: #### E SR, CBC, HEPATIC, CREAT #### [facility] [address] Platelets (Bld) [#/Vol] 212 10*3/uL Normal 150-450 [facility] Comment on above: Performed By: #### E SR, CBC, HEPATIC, CREAT #### [facility] [address] RBC (Bld) [#/Vol] 4.03 10*6/uL Normal 3.60-5.00 [facility] Comment on above: Performed By: #### E SR, CBC, HEPATIC, CREAT #### [address] WBC (Bld) [#/Vol] 8.9 10*3/uL Normal 3.8-11.6 [facility] Comment on above: Performed By: #### E SR, CBC, HEPATIC, CREAT #### [address] Creatinineon 09-27-2023 Creatinine [Mass/Vol] 0.88 mg/dL Normal 0.60-1.20 [facility] Comment on above: Performed By: #### E SR, CBC, HEPATIC, CREAT #### [address] GFR/1.73 sq M.predicted MDRD (S/P/Bld) [Vol rate/Area] mL/min/{1.73_m2} Normal [facility] Comment on above: Result Comment: PERF ORMED BY: [place] [address] PATHOLOGIST MEDICAL SECRETARY RECEPTIONIST TAMERA DAO M.D. Performed By: #### E SR, CBC, HEPATIC, CREAT #### [facility] [address] [place] [address] Erythrocyte Sedimentation Ra moon 09-27-2023 ESR (Bld) [Velocity] 27 mm/h Normal 0-29 [facility] Comment on above: Result Comment: PERF ORMED BY: [place] [address] PATHOLOGIST MEDICAL SECRETARY RECEPTIONIST TAMERA DAO M.D. Performed By: #### E SR, CBC, HEPATIC, CREAT #### [facility] [address] [place] [address] Hepatic Panelon 09-27-2023 Albumin [Mass/Vol] 4.1 g/dL Normal 3.5-5.7 [facility] Comment on above: Performed By: #### E SR, CBC, HEPATIC, CREAT #### [address] Albumin/Globulin [Mass ratio] 1.9 {ratio} Normal [facility] Comment on above: Performed By: #### E SR, CBC, HEPATIC, CREAT #### [facility] [address] [place] [address] ALP [Catalytic activity/Vol] 107 U/L High 34-104 [facility] Comment on above: Performed By: #### E SR, CBC, HEPATIC, CREAT #### [facility] [address] [place] [address] ALT [Catalytic activity/Vol] 72 U/L High 7-52 [facility] Comment on above: Performed By: #### E SR, CBC, HEPATIC, CREAT #### [facility] [address] [place] [address] AST [Catalytic activity/Vol] 81 U/L High 13-39 [facility] Comment on above: Performed By: #### E SR, CBC, HEPATIC, CREAT #### [facility] [address] [place] [address] Bilirubin [Mass/Vol] 0.6 mg/dL Normal 0.3-1.0 [facility] Comment on above: Performed By: #### E SR, CBC, HEPATIC, CREAT #### [facility] [address] Bilirubin,Indirect 0.5 mg/dL Normal [facility] Comment on above: Performed By: #### E SR, CBC, HEPATIC, CREAT #### [facility] [address] Bilirubin.indirect [Mass/Vol] 0.10 mg/dL Normal 0.03-0.18 [facility] Comment on above: Performed By: #### E SR, CBC, HEPATIC, CREAT #### [facility] [address] Globulin (S) [Mass/Vol] 2.2 g/dL Normal [facility] Comment on above: Performed By: #### E SR, CBC, HEPATIC, CREAT #### [facility] [address] [place] [address] Protein [Mass/Vol] 6.3 g/dL Low 6.4-8.9 [facility] Comment on above: Performed By: #### E SR, CBC, HEPATIC, CREAT #### [facility] [address] COVID-19 / Flu A/B / RSV [...] or Cepheid Disclaimer revoked sooner. PERFORMED BY: [place] [address] PATHOLOGIST MEDICAL SECRETARY RECEPTIONIST TAMERA DAO M.D. Normal [facility] Comment on above: Performed By: #### E SR, CBC, HEPATIC, CREAT #### [facility] [address] [place] [address] Cepheid COVID PCR Positiveon 06-01-2023 SARS-CoV-2 (COVID-19) RNA NANCY+probe Ql (Unsp spec) Positive Critically abnormal Negative [facility] Comment on above: Result Comment: This is a duplicate Cepheid Xpert Xpress CoV-2/Flu/RSV Plus RNA by RT-PCR result to be used for statistical tracking purpose only. PERFORMED BY: [place] [address] PATHOLOGIST MEDICAL SECRETARY RECEPTIONIST TAMERA DAO M.D. Performed By: #### E SR, CBC, HEPATIC, CREAT #### [address] [place] [address] [facility] XR chest 2V*on 06-01-2023 XR chest 2V* [facility] [address] [place] [address] [place] [address] XRay Report Signed Patient: Felicity Phillips MR#: [id number] 03 : 1965 Acct:[id number] Age/Sex: 57 / F ADM Date: 05/31/23 Loc: ER Room: Type: [facility] ER Attending Dr: Copies to: Stef Molina [...] Sally Colón M.D.06/01/2023 7:21 AM Dictation Location: [place] [address] Transcribed By: [facility] 06/01/23720 Dictated By: Sally Colón MD 06/01/23719 Signed By: 06/01/23720 Normal [facility] COVID CepheidOrdered By: Kory Molina on 05-31-2023 SARS-CoV-2 (COVID-19) Ab IA Ql Positive Negative [facility] Comment on above: This is a duplicate Cepheid Xpert Xpress CoV-2/Flu/RSV Plus RNA by RT-PCR result to be used for statistical tracking purpose only. SARS-CoV-2 (COVID-19) RNA NANCY+probe Ql (Unsp spec) [facility] Alanine aminotransferase [En zymatic activity/volume] in Serum or PlasmaOrdered By: Kyle Calderon on 04-28-2023 ALT [Catalytic activity/Vol] 58 U/L [facility] Albumin [Mass/volume] in Ser um or Plasma by Bromocresol green (BCG) dye binding methoOrdered By: Kyle Calderon on 04-28-2023 Albumin BCG dye [Mass/Vol] 4.2 g/dL 3.5-5.7 [facility] Alkaline phosphatase [Enzyma tic activity/volume] in Serum or PlasmaOrdered By: Kyle Calderon on 04-28-2023 ALP [Catalytic activity/Vol] 102 U/L 34-104 [facility] Aspartate aminotransferase [ Enzymatic activity/volume] in Serum or PlasmaOrdered By: Kyle Calderon on 04-28-2023 AST [Catalytic activity/Vol] 53 U/L 13-39 [facility] Basophils Auto (Bld) [#/Vol] Ordered By: Kyle Calderon on 04-28-2023 Basophils (Bld) [#/Vol] 0.1 10*3/uL 0.0-0.2 [facility] Basophils/100 WBC Auto (Bld) Ordered By: Kyle Calderon on 04-28-2023 Basophils/100 WBC (Bld) 1.3 % . [facility] Bilirubin.direct [Mass/volum e] in Serum or PlasmaOrdered By: Kyle Calderon on 04-28-2023 Bilirubin.direct [Mass/Vol] 0.10 mg/dL 0.03-0.18 [facility] Bilirubin.total [Mass/volume ] in Serum or PlasmaOrdered By: Kyle Calderon on 04-28-2023 Bilirubin [Mass/Vol] 0.8 mg/dL 0.3-1.0 [facility] Complete Blood Count Auto Di ffon 04-28-2023 Basophils (Bld) [#/Vol] 0.1 10*3/uL Normal 0.0-0.2 [facility] Comment on above: Performed By: #### E SR, CBC, HEPATIC, CREAT #### [facility] [address] Basophils/100 WBC (Bld) 1.3 % Normal . [facility] Comment on above: Performed By: #### E SR, CBC, HEPATIC, CREAT #### [facility] [address] [place] [address] [place] Eosinophils (Bld) [#/Vol] 0.2 10*3/uL Normal 0.0-0.45 [facility] Comment on above: Performed By: #### E SR, CBC, HEPATIC, CREAT #### [facility] [address] Eosinophils/100 WBC (Bld) 3.2 % Normal . [facility] Comment on above: Performed By: #### E SR, CBC, HEPATIC, CREAT #### [facility] [address] [place] [address] Erythrocyte distribution width (RBC) [Ratio] 13.5 % Normal 11.9-15.3 [facility] Comment on above: Performed By: #### E SR, CBC, HEPATIC, CREAT #### [address] Hematocrit (Bld) [Volume fraction] 36.5 % Normal 34.0-46.4 [facility] Comment on above: Performed By: #### E SR, CBC, HEPATIC, CREAT #### [address] Hemoglobin (Bld) [Mass/Vol] 12.3 g/dL Normal 11.8-15.4 [facility] Comment on above: Performed By: #### E SR, CBC, HEPATIC, CREAT #### [address] Lymphocytes (Bld) [#/Vol] 1.5 10*3/uL Normal 1.00-4.8 [facility] Comment on above: Performed By: #### E SR, CBC, HEPATIC, CREAT #### [place] [address] [place] Lymphocytes/100 WBC (Bld) 20.3 % Normal . [facility] Comment on above: Performed By: #### E SR, CBC, HEPATIC, CREAT #### [address] MCH (RBC) [Entitic mass] 31.2 pg Normal 24.7-34.3 [facility] Comment on above: Performed By: #### E SR, CBC, HEPATIC, CREAT #### [address] MCV (RBC) [Entitic vol] 92.2 fL Normal 80-100 [facility] Comment on above: Performed By: #### E SR, CBC, HEPATIC, CREAT #### [address] Mean Corpuscular HGB Conc 33.8 g/dL Normal 32.0-35.0 [facility] Comment on above: Performed By: #### E SR, CBC, HEPATIC, CREAT #### [address] Monocytes (Bld) [#/Vol] 0.6 10*3/uL Normal 0.0-0.8 [facility] Comment on above: Performed By: #### E SR, CBC, HEPATIC, CREAT #### [address] Monocytes/100 WBC (Bld) 9.0 % Normal . [facility] Comment on above: Performed By: #### E SR, CBC, HEPATIC, CREAT #### [address] Neutrophils (Bld) [#/Vol] 4.8 10*3/uL Normal 1.8-7.7 [facility] Comment on above: Performed By: #### E SR, CBC, HEPATIC, CREAT #### [address] Neutrophils/100 WBC (Bld) 66.2 % Normal . [facility] Comment on above: Performed By: #### E SR, CBC, HEPATIC, CREAT #### [address] NRBC% 0.1 /100{WBC} Normal 0-0.5 [facility] Comment on above: Performed By: #### E SR, CBC, HEPATIC, CREAT #### [address] Platelet mean volume (Bld) [Entitic vol] 8.7 fL Normal 6.3-10.7 [facility] Comment on above: Performed By: #### E SR, CBC, HEPATIC, CREAT #### [facility] [address] Platelets (Bld) [#/Vol] 202 10*3/uL Normal 150-450 [facility] Comment on above: Performed By: #### E SR, CBC, HEPATIC, CREAT #### [address] RBC (Bld) [#/Vol] 3.96 10*6/uL Normal 3.60-5.00 [facility] Comment on above: Performed By: #### E SR, CBC, HEPATIC, CREAT #### [address] WBC (Bld) [#/Vol] 7.2 10*3/uL Normal 3.8-11.6 [facility] Comment on above: Performed By: #### E SR, CBC, HEPATIC, CREAT #### [address] Creatinineon 04-28-2023 Creatinine [Mass/Vol] 0.70 mg/dL Normal 0.60-1.20 [facility] Comment on above: Performed By: #### E SR, CBC, HEPATIC, CREAT #### [address] GFR/1.73 sq M.predicted MDRD (S/P/Bld) [Vol rate/Area] mL/min/{1.73_m2} Normal [facility] Comment on above: Result Comment: PERF ORMED BY: [place] [address] PATHOLOGIST MEDICAL SECRETARY RECEPTIONIST TAMERA DAO M.D. Performed By: #### E SR, CBC, HEPATIC, CREAT #### [address] Creatinine [Mass/volume] in Serum or PlasmaOrdered By: Kyle Calderon on 04-28-2023 Creatinine [Mass/Vol] 0.70 mg/dL 0.60-1.20 [facility] Eosinophils Auto (Bld) [#/Vo l]Ordered By: Kyle Calderon on 04-28-2023 Eosinophils (Bld) [#/Vol] 0.2 10*3/uL 0.0-0.45 [facility] Eosinophils/100 WBC Auto (Bl d)Ordered By: Kyle Calderon on 04-28-2023 Eosinophils/100 WBC (Bld) 3.2 % . [facility] Erythrocyte Sedimentation Ra moon 04-28-2023 ESR (Bld) [Velocity] 24 mm/h Normal 0-29 [facility] Comment on above: Result Comment: PERF ORMED BY: [place] [address] PATHOLOGIST MEDICAL SECRETARY RECEPTIONIST TAMERA DAO M.D. Performed By: #### E SR, CBC, HEPATIC, CREAT #### [address] Erythrocyte distribution wid th Auto (RBC) [Ratio]Ordered By: Kyle Calderon on 04-28-2023 Erythrocyte distribution width (RBC) [Ratio] 13.5 % 11.9-15.3 [facility] Erythrocyte sedimentation ra te by Photometric methodOrdered By: Kyle Calderon on 04-28-2023 ESR Photometric method (Bld) [Velocity] 24 mm/hr 0-29 [facility] Globulin Calc (S) [Mass/Vol] Ordered By: Kyle Calderon on 04-28-2023 Globulin (S) [Mass/Vol] 1.9 g/dL [facility] Hematocrit Auto (Bld) [Volum e fraction]Ordered By: Kyle Calderon on 04-28-2023 Hematocrit (Bld) [Volume fraction] 36.5 % 34.0-46.4 [facility] Hemoglobin [Mass/volume] in BloodOrdered By: Kyle Calderon on 04-28-2023 Hemoglobin (Bld) [Mass/Vol] 12.3 g/dL 11.8-15.4 [facility] Hepatic Panelon 04-28-2023 Albumin [Mass/Vol] 4.2 g/dL Normal 3.5-5.7 [facility] Comment on above: Performed By: #### E SR, CBC, HEPATIC, CREAT #### [facility] [address] [place] [address] Albumin/Globulin [Mass ratio] 2.2 {ratio} Normal [facility] Comment on above: Performed By: #### E SR, CBC, HEPATIC, CREAT #### [facility] [address] ALP [Catalytic activity/Vol] 102 U/L Normal 34-104 [facility] Comment on above: Performed By: #### E SR, CBC, HEPATIC, CREAT #### [facility] [address] [place] [address] ALT [Catalytic activity/Vol] 58 U/L High 7-52 [facility] Comment on above: Performed By: #### E SR, CBC, HEPATIC, CREAT #### [facility] [address] [place] [address] AST [Catalytic activity/Vol] 53 U/L High 13-39 [facility] Comment on above: Performed By: #### E SR, CBC, HEPATIC, CREAT #### [facility] [address] [place] [address] Bilirubin [Mass/Vol] 0.8 mg/dL Normal 0.3-1.0 [facility] Comment on above: Performed By: #### E SR, CBC, HEPATIC, CREAT #### [facility] [address] [place] [address] Bilirubin,Indirect 0.7 mg/dL Normal [facility] Comment on above: Performed By: #### E SR, CBC, HEPATIC, CREAT #### [facility] [address] [place] [address] Bilirubin.indirect [Mass/Vol] 0.10 mg/dL Normal 0.03-0.18 [facility] Comment on above: Performed By: #### E SR, CBC, HEPATIC, CREAT #### [facility] [address] [place] [address] Globulin (S) [Mass/Vol] 1.9 g/dL Normal [facility] Comment on above: Performed By: #### E SR, CBC, HEPATIC, CREAT #### [facility] [address] Protein [Mass/Vol] 6.1 g/dL Low 6.4-8.9 [facility] Comment on above: Performed By: #### E SR, CBC, HEPATIC, CREAT #### [facility] [address] Leukocytes [#/volume] correc edd for nucleated erythrocytes in Blood by Automated counOrdered By: Kyle Calderon on 04-28-2023 WBC corrected for nucl RBC Auto (Bld) [#/Vol] 7.2 10*3/uL 3.8-11.6 [facility] Lymphocytes Auto (Bld) [#/Vo l]Ordered By: Kyle Calderon on 04-28-2023 Lymphocytes (Bld) [#/Vol] 1.5 10*3/uL 1.00-4.8 [facility] Lymphocytes/100 WBC Auto (Bl d)Ordered By: Kyle Calderon on 04-28-2023 Lymphocytes/100 WBC (Bld) 20.3 % . [facility] MCH Auto (RBC) [Entitic mass ]Ordered By: Kyle Calderon on 04-28-2023 MCH (RBC) [Entitic mass] 31.2 pg 24.7-34.3 [facility] MCHC Auto (RBC) [Mass/Vol]Or dered By: Kyle Calderon on 04-28-2023 MCHC (RBC) [Mass/Vol] 33.8 g/dL 32.0-35.0 [facility] MCV Auto (RBC) [Entitic vol] Ordered By: Kyle Calderon on 04-28-2023 MCV (RBC) [Entitic vol] 92.2 fL 80-100 [facility] Monocytes Auto (Bld) [#/Vol] Ordered By: Kyle Calderon on 04-28-2023 Monocytes (Bld) [#/Vol] 0.6 10*3/uL 0.0-0.8 [facility] Monocytes/100 WBC Auto (Bld) Ordered By: Kyle Calderon on 04-28-2023 Monocytes/100 WBC (Bld) 9.0 % . [facility] Neutrophils Auto (Bld) [#/Vo l]Ordered By: Kyle Calderon on 04-28-2023 Neutrophils (Bld) [#/Vol] 4.8 10*3/uL 1.8-7.7 [facility] Neutrophils/100 WBC Auto (Bl d)Ordered By: Kyle Calderon on 04-28-2023 Neutrophils/100 WBC (Bld) 66.2 % . [facility] No Panel InformationOrdered By: Kyle Calderon on 04-28-2023 Estimated GFR (CKD-EPI) > 60.0 mL/Min [facility] Creatinine Clearance (Chem N/A [facility] Nucleated erythrocytes [Pres ence] in Blood by Automated countOrdered By: Kyle Calderon on 04-28-2023 Nucleated RBC Auto Ql (Bld) 0.1 /100{WBC} 0-0.5 [facility] Platelet mean volume Auto (B ld) [Entitic vol]Ordered By: Kyle Calderon on 04-28-2023 Platelet mean volume (Bld) [Entitic vol] 8.7 fL 6.3-10.7 [facility] Platelets Auto (Bld) [#/Vol] Ordered By: Kyle Calderon on 04-28-2023 Platelets (Bld) [#/Vol] 202 10*3/uL 150-450 [facility] Protein [Mass/volume] in Ser um or PlasmaOrdered By: Kyle Calderon on 04-28-2023 Protein [Mass/Vol] 6.1 g/dL 6.4-8.9 [facility] RBC Auto (Bld) [#/Vol]Ordere d By: Kyle Calderon on 04-28-2023 RBC (Bld) [#/Vol] 3.96 10*6/uL 3.60-5.00 [facility] Serum or plasma albumin/glob ulin mass ratioOrdered By: Kyle Calderon on 04-28-2023 Albumin/Globulin [Mass ratio] 2.2 {ratio} [facility] Serum or plasma non-glucuron idated bilirubin measurement (mass/volume)Ordered By: Kyle Calderon on 04-28-2023 Bilirubin.indirect [Mass/Vol] 0.7 mg/dL [facility] WBC Auto (Bld) [#/Vol]Ordere d By: Kyle Calderon on 04-28-2023 WBC (Bld) [#/Vol] 7.2 10*3/uL 3.8-11.6 [facility] Consent for Treatmenton 02-15 Consent for Treatment [id number]:127 Normal [facility] Discharge Instructionson Discharge Instructions [id number]:127 Normal [facility] ED Clinical Summaryon 2022 ED Clinical Summary [place] [id number] ED Clinical Summary Person Information Name: FELICITY PHILLIPS [facility] Age: 57 Years : 1965 Sex: Female Language: Lebanese PCP: Jose Antonio Garza MD Marital Status: [...] 02/24/2023 13:18:12 02/24/2023 13:18:12 02/24/2023 13:18:12 ADDRESS: [address] [place] [phone] PHYS DOC NOTES: MEDICAL INFORMATION: Prescriptions Given: New Medications [facility], [address] [place], [place] [id number], [phone] cephalexin (Keflex 500 mg Cap) 1 Capsules [...] up: With: Address: When: Jose Antonio Garza [address] [place] [address], [address] [place] [phone] Business (1) In 3 days 02/27/2023 DIAGNOSIS: Abscess; Cellulitis Normal [facility] ED Note-Physicianon 02-25-20 ED Note-Physician Basic [...] days, # 30 cap(s), Refills(s) 0, Pharmacy: [facility] 1985, 155, cm, 02/24/23 12:00:00 EDT, Height/Length Dosing, 108.2, kg, 02/24/23 12:00:00 EDT, Weight Dosing doxycycline, 100 mg = 1 tab(s), Oral, BID, X 10 day(s), # 20 tab(s), Refills(s) 0, Pharmacy: [facility] 1985, 155, cm, 02/24/23 12:00:00 EDT, [...] Garza In 3 days 02/27/2023 EDT [address] [facility] [place] [address]- Business (1) Additional Instructions: Patient Education Skin Abscess Cellulitis, Adult Attestation 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 Attending physician was present in the emergency department and supervised care. This visit was performed by both the physician and an APC. I performed all aspects of the MDM as documented. This report was transcribed using voice recognition software. Every effort was made to ensure accuracy, however, inadvertently computerized department traffic freight router mistakes may be present. Appropriate healthcare PPE [...] Keflex 5 (more content not included)... Normal [facility] Comment on above: Result Comment: Elec [...] these instructions at home: Medicines ? Take oyoz-yey-lyhtmtg and prescription medicines only as told by [...] and water are not available, use hand desk clerk. ? Check your abscess every day for [...] care pro (more content not included)... Normal [facility] ED Patient Summaryon 023 ED Patient Summary [address] [address] Patient Discharge Instructions Person Information Name: FELICITY PHILLIPS Age: 57 Years Arrival Date: 02/24/2023 11:52:40 Discharge Diagnosis: Abscess; Cellulitis Primary Care Physician: Jose Antonio Garza MD Provider Information Primary Provider: Briana Winters M.D. Advanced Music Arranger:Rodrick Mobley PA-C The exam and treatment you received in the Emergency Department were for an urgent problem and are not intended as complete care. It is important that you follow up with a doctor, nurse practitioner, or physician?s head start assistant teacher for ongoing care. If your symptoms become [...] Instructions: With: Address: When: Jose Antonio Fortejenifer [address] [place] [address], [place] [address] Business (1) In 3 days 02/27/2023 In the event that this physician does not participate in your insurance network, please consult with your insurance company to find a nearby participating provider. Patient Education Materials: Skin Abscess; Cellulitis, Adult A MESSAGE TO ALL PATIENTS REGARDING OPIOIDS PRESCRIPTION OPIOIDS: WHAT YOU NEED TO KNOW Prescription opioids can be used to help relieve uwewvoyn-wp-rkfast pain and are often prescribed following a [...] be struggling with addiction, tell your health manager wound care and ask for guidance or call [facility]?S National Helpline at 3-446-252-SQYD. (more content not included)... Normal [facility] Alanine aminotransferase [En zymatic activity/volume] in Serum or PlasmaOrdered By: Kyle Calderon on 01-05-2023 ALT [Catalytic activity/Vol] 41 U/L 7-52 [facility] Albumin [Mass/volume] in Ser um or Plasma by Bromocresol green (BCG) dye binding methoOrdered By: Kyle Calderon on 01-05-2023 Albumin BCG dye [Mass/Vol] 4.4 g/dL 3.5-5.7 [facility] Alkaline phosphatase [Enzyma tic activity/volume] in Serum or PlasmaOrdered By: Kyle Calderon on 01-05-2023 ALP [Catalytic activity/Vol] 93 U/L 34-104 [facility] Anisocytosis LM Ql (Bld)Orde red By: Kyle Calderon on 01-05-2023 Anisocytosis Ql (Bld) Slight [facility] Aspartate aminotransferase [ Enzymatic activity/volume] in Serum or PlasmaOrdered By: Kyle Calderon on 01-05-2023 AST [Catalytic activity/Vol] 19 U/L 13-39 [facility] Band form neutrophils/100 WB C Manual cnt (Bld)Ordered By: Kyle Calderon on 01-05-2023 Band form neutrophils/100 WBC (Bld) 1 % 0-5 [facility] Basophils Auto (Bld) [#/Vol] Ordered By: Kyle Calderon on 01-05-2023 Basophils (Bld) [#/Vol] N/A [facility] Basophils/100 WBC Auto (Bld) Ordered By: Kyle Calderon on 01-05-2023 Basophils/100 WBC (Bld) N/A [facility] Basophils/100 WBC Manual cnt (Bld)Ordered By: Kyle Calderon on 01-05-2023 Basophils/100 WBC (Bld) 0 % 0-2 [facility] Bilirubin.direct [Mass/volum e] in Serum or PlasmaOrdered By: Kyle Calderon on 01-05-2023 Bilirubin.direct [Mass/Vol] 0.10 mg/dL 0.03-0.18 [facility] Bilirubin.total [Mass/volume ] in Serum or PlasmaOrdered By: Kyle Calderon on 01-05-2023 Bilirubin [Mass/Vol] 0.6 mg/dL 0.3-1.0 [facility] Creatinineon 01-05-2023 Creatinine [Mass/Vol] 0.85 mg/dL Normal 0.60-1.20 [facility] Comment on above: Performed By: #### E SR, CBC, HEPATIC, CREAT #### [facility] [address] GFR/1.73 sq M.predicted MDRD (S/P/Bld) [Vol rate/Area] mL/min/{1.73_m2} Normal [facility] Comment on above: Result Comment: PERF ORMED BY: [place] [address] PATHOLOGIST MEDICAL SECRETARY RECEPTIONIST TAMERA DAO M.D. Performed By: #### E SR, CBC, HEPATIC, CREAT #### [facility] [address] Creatinine [Mass/volume] in Serum or PlasmaOrdered By: Kyle Calderon on 01-05-2023 Creatinine [Mass/Vol] 0.85 mg/dL 0.60-1.20 [facility] Diff and CBCon 01-05-2023 Anisocytosis Ql (Bld) Slight Normal [facility] Comment on above: Performed By: #### E SR, CBC, HEPATIC, CREAT #### [facility] [address] [place] [address] [place] Band form neutrophils/100 WBC (Bld) 1 % Normal 0-5 [facility] Comment on above: Performed By: #### E SR, CBC, HEPATIC, CREAT #### [facility] [address] [place] [address] [place] Basophils/100 WBC (Bld) 0 % Normal 0-2 [facility] Comment on above: Performed By: #### E SR, CBC, HEPATIC, CREAT #### [address] Eosinophils/100 WBC (Bld) 4 % High 1-3 [facility] Comment on above: Performed By: #### E SR, CBC, HEPATIC, CREAT #### [address] Erythrocyte distribution width (RBC) [Ratio] 15.0 % Normal 11.9-15.3 [facility] Comment on above: Performed By: #### E SR, CBC, HEPATIC, CREAT #### [address] Hematocrit (Bld) [Volume fraction] 35.4 % Normal 34.0-46.4 [facility] Comment on above: Performed By: #### E SR, CBC, HEPATIC, CREAT #### [address] Hemoglobin (Bld) [Mass/Vol] 12.1 g/dL Normal 11.8-15.4 [facility] Comment on above: Performed By: #### E SR, CBC, HEPATIC, CREAT #### [address] Lymphocytes/100 WBC (Bld) 13 % Low 18-42 [facility] Comment on above: Performed By: #### E SR, CBC, HEPATIC, CREAT #### [address] MCH (RBC) [Entitic mass] 31.7 pg Normal 24.7-34.3 [facility] Comment on above: Performed By: #### E SR, CBC, HEPATIC, CREAT #### [address] MCV (RBC) [Entitic vol] 92.6 fL Normal 80-100 [facility] Comment on above: Performed By: #### E SR, CBC, HEPATIC, CREAT #### [address] Mean Corpuscular HGB Conc 34.2 g/dL Normal 32.0-35.0 [facility] Comment on above: Performed By: #### E SR, CBC, HEPATIC, CREAT #### [facility] [address] [place] [address] Metamyelocytes 1 % High 0-0 [facility] Comment on above: Performed By: #### E SR, CBC, HEPATIC, CREAT #### [facility] [address] [place] [address] [place] Microcytosis Slight Normal [facility] Comment on above: Performed By: #### E SR, CBC, HEPATIC, CREAT #### [facility] [address] [place] [address] Monocytes/100 WBC (Bld) 6 % Normal 2-11 [facility] Comment on above: Performed By: #### E SR, CBC, HEPATIC, CREAT #### [facility] [address] [place] [address] Myelocytes 1 % High 0-0 [facility] Comment on above: Performed By: #### E SR, CBC, HEPATIC, CREAT #### [facility] [address] [place] [address] Platelet Estimate Normal Normal Normal [facility] Comment on above: Performed By: #### E SR, CBC, HEPATIC, CREAT #### [facility] [address] [place] [address] Platelet mean volume (Bld) [Entitic vol] 8.3 fL Normal 6.3-10.7 [facility] Comment on above: Performed By: #### E SR, CBC, HEPATIC, CREAT #### [facility] [address] [place] [address] Platelet Morphology Normal Normal Normal [facility] Comment on above: Performed By: #### E SR, CBC, HEPATIC, CREAT #### [facility] [address] [place] [address] Platelets (Bld) [#/Vol] 204 10*3/uL Normal 150-450 [facility] Comment on above: Performed By: #### E SR, CBC, HEPATIC, CREAT #### [address] [place] [address] [place] Polychromasia Slight Normal [facility] Comment on above: Performed By: #### E SR, CBC, HEPATIC, CREAT #### [facility] [address] RBC (Bld) [#/Vol] 3.82 10*6/uL Normal 3.60-5.00 [facility] Comment on above: Performed By: #### E SR, CBC, HEPATIC, CREAT #### [facility] [address] Segmented neutrophils/100 WBC (Bld) 74 % High 50-70 [facility] Comment on above: Performed By: #### E SR, CBC, HEPATIC, CREAT #### [facility] [address] [place] [address] WBC (Bld) [#/Vol] 10.8 10*3/uL Normal 3.8-11.6 [facility] Comment on above: Performed By: #### E SR, CBC, HEPATIC, CREAT #### [facility] [address] [place] [address] Eosinophils Auto (Bld) [#/Vo l]Ordered By: Kyle Calderon on 01-05-2023 Eosinophils (Bld) [#/Vol] N/A [facility] Eosinophils/100 WBC Auto (Bl d)Ordered By: Kyle Calderon on 01-05-2023 Eosinophils/100 WBC (Bld) N/A [facility] Eosinophils/100 WBC Manual c nt (Bld)Ordered By: Kyle Calderon on 01-05-2023 Eosinophils/100 WBC (Bld) 4 % 1-3 [facility] Erythrocyte Sedimentation Ra moon 01-05-2023 ESR (Bld) [Velocity] 17 mm/h Normal 0-29 [facility] Comment on above: Result Comment: PERF ORMED BY: [place] [address] PATHOLOGIST MEDICAL SECRETARY RECEPTIONIST TAMERA DAO M.D. Performed By: #### E SR, CBC, HEPATIC, CREAT #### [facility] [address] [place] [address] [place] Erythrocyte distribution wid th Auto (RBC) [Ratio]Ordered By: Kyle Calderon on 01-05-2023 Erythrocyte distribution width (RBC) [Ratio] 15.0 % 11.9-15.3 [facility] Erythrocyte sedimentation ra te by Photometric methodOrdered By: Kyle Calderon on 01-05-2023 ESR Photometric method (Bld) [Velocity] 17 mm/hr 0-29 [facility] Globulin Calc (S) [Mass/Vol] Ordered By: Kyle Calderon on 01-05-2023 Globulin (S) [Mass/Vol] 2.2 g/dL [facility] Hematocrit Auto (Bld) [Volum e fraction]Ordered By: Kyle Calderon on 01-05-2023 Hematocrit (Bld) [Volume fraction] 35.4 % 34.0-46.4 [facility] Hemoglobin [Mass/volume] in BloodOrdered By: Kyle Calderon on 01-05-2023 Hemoglobin (Bld) [Mass/Vol] 12.1 g/dL 11.8-15.4 [facility] Hepatic Panelon 01-05-2023 Albumin [Mass/Vol] 4.4 g/dL Normal 3.5-5.7 [facility] Comment on above: Performed By: #### C REAT, HEPATIC, DIFF CBC, ESR #### [facility] [address] [place] [address] [place] Albumin/Globulin [Mass ratio] 2.0 {ratio} Normal [facility] Comment on above: Performed By: #### C REAT, HEPATIC, DIFF CBC, ESR #### [facility] [address] [place] [address] [place] ALP [Catalytic activity/Vol] 93 U/L Normal 34-104 [facility] Comment on above: Performed By: #### C REAT, HEPATIC, DIFF CBC, ESR #### [facility] [address] [place] [id number] [facility] ALT [Catalytic activity/Vol] 41 U/L Normal 7-52 [facility] Comment on above: Performed By: #### C REAT, HEPATIC, DIFF CBC, ESR #### [facility] [address] AST [Catalytic activity/Vol] 19 U/L Normal 13-39 [facility] Comment on above: Performed By: #### C REAT, HEPATIC, DIFF CBC, ESR #### [facility] [address] Bilirubin [Mass/Vol] 0.6 mg/dL Normal 0.3-1.0 [facility] Comment on above: Performed By: #### C REAT, HEPATIC, DIFF CBC, ESR #### [facility] [address] Bilirubin,Indirect 0.5 mg/dL Normal [facility] Comment on above: Performed By: #### C REAT, HEPATIC, DIFF CBC, ESR #### [facility] [address] Bilirubin.indirect [Mass/Vol] 0.10 mg/dL Normal 0.03-0.18 [facility] Comment on above: Performed By: #### C REAT, HEPATIC, DIFF CBC, ESR #### [facility] [address] Globulin (S) [Mass/Vol] 2.2 g/dL Normal [facility] Comment on above: Performed By: #### C REAT, HEPATIC, DIFF CBC, ESR #### [facility] [address] [place] [address] Protein [Mass/Vol] 6.6 g/dL Normal 6.4-8.9 [facility] Comment on above: Performed By: #### C REAT, HEPATIC, DIFF CBC, ESR #### [facility] [address] [place] [address] Leukocytes [#/volume] correc edd for nucleated erythrocytes in Blood by Automated counOrdered By: Kyle Calderon on 01-05-2023 WBC corrected for nucl RBC Auto (Bld) [#/Vol] 10.8 10*3/uL 3.8-11.6 [facility] Lymphocytes Auto (Bld) [#/Vo l]Ordered By: Kyle Calderon on 01-05-2023 Lymphocytes (Bld) [#/Vol] N/A [facility] Lymphocytes/100 WBC Auto (Bl d)Ordered By: Kyle Calderon on 01-05-2023 Lymphocytes/100 WBC (Bld) N/A [facility] Lymphocytes/100 WBC Manual c nt (Bld)Ordered By: Kyle Calderon on 01-05-2023 Lymphocytes/100 WBC (Bld) 13 % 18-42 [facility] MCH Auto (RBC) [Entitic mass ]Ordered By: Kyle Calderon on 01-05-2023 MCH (RBC) [Entitic mass] 31.7 pg 24.7-34.3 [facility] MCHC Auto (RBC) [Mass/Vol]Or dered By: Kyle Calderon on 01-05-2023 MCHC (RBC) [Mass/Vol] 34.2 g/dL 32.0-35.0 [facility] MCV Auto (RBC) [Entitic vol] Ordered By: Kyle Calderon on 01-05-2023 MCV (RBC) [Entitic vol] 92.6 fL 80-100 [facility] Metamyelocytes/100 WBC Manua l cnt (Bld)Ordered By: Kyle Calderon on 01-05-2023 Metamyelocytes/100 WBC (Bld) 1 % 0-0 [facility] Microcytes LM Ql (Bld)Ordere d By: Kyle Calderon on 01-05-2023 Microcytes Ql (Bld) Slight [facility] Monocytes Auto (Bld) [#/Vol] Ordered By: Kyle Calderon on 01-05-2023 Monocytes (Bld) [#/Vol] N/A [facility] Monocytes/100 WBC Auto (Bld) Ordered By: Kyle Calderon on 01-05-2023 Monocytes/100 WBC (Bld) N/A [facility] Monocytes/100 WBC Manual cnt (Bld)Ordered By: Kyle Calderon on 01-05-2023 Monocytes/100 WBC (Bld) 6 % 2-11 [facility] Myelocytes/100 WBC Manual cn t (Bld)Ordered By: Kyle Calderon on 01-05-2023 Myelocytes/100 WBC (Bld) 1 % 0-0 [facility] Neutrophils Auto (Bld) [#/Vo l]Ordered By: Kyle Calderon on 01-05-2023 Neutrophils (Bld) [#/Vol] N/A [facility] Neutrophils/100 WBC Auto (Bl d)Ordered By: Kyle Calderon on 01-05-2023 Neutrophils/100 WBC (Bld) N/A [facility] No Panel InformationOrdered By: Kyle Calderon on 01-05-2023 Estimated GFR (CKD-EPI) > 60.0 mL/Min [facility] Creatinine Clearance (Chem N/A [facility] Nucleated erythrocytes [Pres ence] in Blood by Automated countOrdered By: Kyle Calderon on 01-05-2023 Nucleated RBC Auto Ql (Bld) N/A [facility] Platelet adequacy [Presence] in Blood by Light microscopyOrdered By: Kyle Calderon on 01-05-2023 Platelets LM Ql (Bld) Normal Normal [facility] Platelet mean volume Auto (B ld) [Entitic vol]Ordered By: Kyle Calderon on 01-05-2023 Platelet mean volume (Bld) [Entitic vol] 8.3 fL 6.3-10.7 [facility] Platelet morphology finding [Identifier] in BloodOrdered By: Kyle Calderon on 01-05-2023 Platelet morphology finding Nom (Bld) Normal Normal [facility] Platelets Auto (Bld) [#/Vol] Ordered By: Kyle Calderon on 01-05-2023 Platelets (Bld) [#/Vol] 204 10*3/uL 150-450 [facility] Polychromasia [Presence] in Blood by Light microscopyOrdered By: Kyle Calderon on 01-05-2023 Polychromasia LM Ql (Bld) Slight [facility] Protein [Mass/volume] in Ser um or PlasmaOrdered By: Kyle Calderon on 01-05-2023 Protein [Mass/Vol] 6.6 g/dL 6.4-8.9 [facility] RBC Auto (Bld) [#/Vol]Ordere d By: Kyle Calderon on 01-05-2023 RBC (Bld) [#/Vol] 3.82 10*6/uL 3.60-5.00 [facility] RBC morphologyOrdered By: Jazmin Calderon on 01-05-2023 RBC morphology finding Nom (Bld) N/A [facility] Segmented neutrophils/100 WB C Manual cnt (Bld)Ordered By: Kyle Calderon on 01-05-2023 Segmented neutrophils/100 WBC (Bld) 74 % 50-70 [facility] Serum or plasma albumin/glob ulin mass ratioOrdered By: Kyle Calderon on 01-05-2023 Albumin/Globulin [Mass ratio] 2.0 {ratio} [facility] Serum or plasma non-glucuron idated bilirubin measurement (mass/volume)Ordered By: Kyle Calderon on 01-05-2023 Bilirubin.indirect [Mass/Vol] 0.5 mg/dL [facility] WBC Auto (Bld) [#/Vol]Ordere d By: Kyle Calderon on 01-05-2023 WBC (Bld) [#/Vol] 10.8 10*3/uL 3.8-11.6 [facility] CT LSPINE WO CONon 3 CT [...] by: UNA ELMORE Date: 2022-11-13 09:34 Normal [facility] CT PELVIS WO CONon 3 CT [...] by: UNA ELMORE Date: 2022-11-13 09:29 Normal [facility] Alanine aminotransferase [En zymatic activity/volume] in Serum or PlasmaOrdered By: Kyle Calderon on 11-03-2022 ALT [Catalytic activity/Vol] 41 U/L 7-52 [facility] Albumin [Mass/volume] in Ser um or Plasma by Bromocresol green (BCG) dye binding methoOrdered By: Kyle Calderon on 11-03-2022 Albumin BCG dye [Mass/Vol] 4.0 g/dL 3.5-5.7 [facility] Alkaline phosphatase [Enzyma tic activity/volume] in Serum or PlasmaOrdered By: Kyle Calderon on 11-03-2022 ALP [Catalytic activity/Vol] 95 U/L 34-104 [facility] Aspartate aminotransferase [ Enzymatic activity/volume] in Serum or PlasmaOrdered By: Kyle Calderon on 11-03-2022 AST [Catalytic activity/Vol] 17 U/L 13-39 [facility] Basophils Auto (Bld) [#/Vol] Ordered By: Kyle Calderon on 11-03-2022 Basophils (Bld) [#/Vol] 0.1 10*3/uL 0.0-0.2 [facility] Basophils/100 WBC Auto (Bld) Ordered By: Kyle Calderon on 11-03-2022 Basophils/100 WBC (Bld) 0.9 % . [facility] Bilirubin.direct [Mass/volum e] in Serum or PlasmaOrdered By: Kyle Calderon on 11-03-2022 Bilirubin.direct [Mass/Vol] 0.10 mg/dL 0.03-0.18 [facility] Bilirubin.total [Mass/volume ] in Serum or PlasmaOrdered By: Kyle Calderon on 11-03-2022 Bilirubin [Mass/Vol] 0.7 mg/dL 0.3-1.0 [facility] Complete Blood Count Auto Di ffon 11-03-2022 Basophils (Bld) [#/Vol] 0.1 10*3/uL Normal 0.0-0.2 [facility] Comment on above: Performed By: #### H EPATIC, CREAT, CBC, ESR #### [facility] [address] [place] [address] [place] Basophils/100 WBC (Bld) 0.9 % Normal . [facility] Comment on above: Performed By: #### H EPATIC, CREAT, CBC, ESR #### [facility] [address] [place] [address] [place] Eosinophils (Bld) [#/Vol] 0.2 10*3/uL Normal 0.0-0.45 [facility] Comment on above: Performed By: #### H EPATIC, CREAT, CBC, ESR #### [facility] [address] [place] [id number] [place] Eosinophils/100 WBC (Bld) 1.4 % Normal . [facility] Comment on above: Performed By: #### H EPATIC, CREAT, CBC, ESR #### [address] Erythrocyte distribution width (RBC) [Ratio] 14.6 % Normal 11.9-15.3 [facility] Comment on above: Performed By: #### H EPATIC, CREAT, CBC, ESR #### [address] Hematocrit (Bld) [Volume fraction] 37.2 % Normal 34.0-46.4 [facility] Comment on above: Performed By: #### H EPATIC, CREAT, CBC, ESR #### [address] Hemoglobin (Bld) [Mass/Vol] 12.4 g/dL Normal 11.8-15.4 [facility] Comment on above: Performed By: #### H EPATIC, CREAT, CBC, ESR #### [address] Lymphocytes (Bld) [#/Vol] 1.5 10*3/uL Normal 1.00-4.8 [facility] Comment on above: Performed By: #### H EPATIC, CREAT, CBC, ESR #### [address] Lymphocytes/100 WBC (Bld) 12.4 % Normal . [facility] Comment on above: Performed By: #### H EPATIC, CREAT, CBC, ESR #### [address] MCH (RBC) [Entitic mass] 31.0 pg Normal 24.7-34.3 [facility] Comment on above: Performed By: #### H EPATIC, CREAT, CBC, ESR #### [address] MCV (RBC) [Entitic vol] 93.2 fL Normal 80-100 [facility] Comment on above: Performed By: #### H EPATIC, CREAT, CBC, ESR #### [address] [place] [address] [place] Mean Corpuscular HGB Conc 33.3 g/dL Normal 32.0-35.0 [facility] Comment on above: Performed By: #### H EPATIC, CREAT, CBC, ESR #### [address] Monocytes (Bld) [#/Vol] 0.9 10*3/uL High 0.0-0.8 [facility] Comment on above: Performed By: #### H EPATIC, CREAT, CBC, ESR #### [address] Monocytes/100 WBC (Bld) 7.2 % Normal . [facility] Comment on above: Performed By: #### H EPATIC, CREAT, CBC, ESR #### [address] Neutrophils (Bld) [#/Vol] 9.4 10*3/uL High 1.8-7.7 [facility] Comment on above: Performed By: #### H EPATIC, CREAT, CBC, ESR #### [address] Neutrophils/100 WBC (Bld) 78.1 % Normal . [facility] Comment on above: Performed By: #### H EPATIC, CREAT, CBC, ESR #### [address] NRBC% 0.0 /100{WBC} Normal 0-0.5 [facility] Comment on above: Performed By: #### H EPATIC, CREAT, CBC, ESR #### [address] Platelet mean volume (Bld) [Entitic vol] 8.4 fL Normal 6.3-10.7 [facility] Comment on above: Performed By: #### H EPATIC, CREAT, CBC, ESR #### [place] [address] [place] Platelets (Bld) [#/Vol] 220 10*3/uL Normal 150-450 [facility] Comment on above: Performed By: #### H EPATIC, CREAT, CBC, ESR #### [facility] [address] [place] [address] RBC (Bld) [#/Vol] 3.99 10*6/uL Normal 3.60-5.00 [facility] Comment on above: Performed By: #### H EPATIC, CREAT, CBC, ESR #### [facility] [address] [place] [address] WBC (Bld) [#/Vol] 12.0 10*3/uL High 3.8-11.6 [facility] Comment on above: Performed By: #### H EPATIC, CREAT, CBC, ESR #### [address] Creatinineon 11-03-2022 Creatinine [Mass/Vol] 0.80 mg/dL Normal 0.60-1.20 [facility] Comment on above: Performed By: #### H EPATIC, CREAT, CBC, ESR #### [address] GFR/1.73 sq M.predicted MDRD (S/P/Bld) [Vol rate/Area] mL/min/{1.73_m2} Normal [facility] Comment on above: Result Comment: PERF ORMED BY: [place] [address] PATHOLOGIST MEDICAL SECRETARY RECEPTIONIST TAMERA DAO M.D. Performed By: #### H EPATIC, CREAT, CBC, ESR #### [facility] [address] [place] [address] Creatinine [Mass/volume] in Serum or PlasmaOrdered By: Kyle Calderon on 11-03-2022 Creatinine [Mass/Vol] 0.80 mg/dL 0.60-1.20 [facility] Eosinophils Auto (Bld) [#/Vo l]Ordered By: Kyle Calderon on 11-03-2022 Eosinophils (Bld) [#/Vol] 0.2 10*3/uL 0.0-0.45 [facility] Eosinophils/100 WBC Auto (Bl d)Ordered By: Kyle Calderon on 11-03-2022 Eosinophils/100 WBC (Bld) 1.4 % . [facility] Erythrocyte Sedimentation Ra moon 11-03-2022 ESR (Bld) [Velocity] 12 mm/h Normal 0-29 [facility] Comment on above: Result Comment: PERF ORMED BY: [facility] [address] [facility] [place] [address] PATHOLOGIST MEDICAL SECRETARY RECEPTIONIST TAMERA DAO M.D. Performed By: #### H EPATIC, CREAT, CBC, ESR #### [facility] [address] Erythrocyte distribution wid th Auto (RBC) [Ratio]Ordered By: Kyle Calderon on 11-03-2022 Erythrocyte distribution width (RBC) [Ratio] 14.6 % 11.9-15.3 [facility] Erythrocyte sedimentation ra te by Photometric methodOrdered By: Kyle Calderon on 11-03-2022 ESR Photometric method (Bld) [Velocity] 12 mm/hr 0-29 [facility] Globulin Calc (S) [Mass/Vol] Ordered By: Kyle Calderon on 11-03-2022 Globulin (S) [Mass/Vol] 2.2 g/dL [facility] Hematocrit Auto (Bld) [Volum e fraction]Ordered By: Kyle Calderon on 11-03-2022 Hematocrit (Bld) [Volume fraction] 37.2 % 34.0-46.4 [facility] Hemoglobin [Mass/volume] in BloodOrdered By: Kyle Calderon on 11-03-2022 Hemoglobin (Bld) [Mass/Vol] 12.4 g/dL 11.8-15.4 [facility] Hepatic Panelon 11-03-2022 Albumin [Mass/Vol] 4.0 g/dL Normal 3.5-5.7 [facility] Comment on above: Performed By: #### H EPATIC, CREAT, CBC, ESR #### [facility] [address] Albumin/Globulin [Mass ratio] 1.8 {ratio} Normal [facility] Comment on above: Performed By: #### H EPATIC, CREAT, CBC, ESR #### [facility] [address] ALP [Catalytic activity/Vol] 95 U/L Normal 34-104 [facility] Comment on above: Performed By: #### H EPATIC, CREAT, CBC, ESR #### [facility] [address] ALT [Catalytic activity/Vol] 41 U/L Normal 7-52 [facility] Comment on above: Performed By: #### H EPATIC, CREAT, CBC, ESR #### [facility] [address] AST [Catalytic activity/Vol] 17 U/L Normal 13-39 [facility] Comment on above: Performed By: #### H EPATIC, CREAT, CBC, ESR #### [facility] [address] [place] [address] Bilirubin [Mass/Vol] 0.7 mg/dL Normal 0.3-1.0 [facility] Comment on above: Performed By: #### H EPATIC, CREAT, CBC, ESR #### [address] Bilirubin,Indirect 0.6 mg/dL Normal [facility] Comment on above: Performed By: #### H EPATIC, CREAT, CBC, ESR #### [facility] [address] [place] [address] Bilirubin.indirect [Mass/Vol] 0.10 mg/dL Normal 0.03-0.18 [facility] Comment on above: Performed By: #### H EPATIC, CREAT, CBC, ESR #### [facility] [address] [place] [address] Globulin (S) [Mass/Vol] 2.2 g/dL Normal [facility] Comment on above: Performed By: #### H EPATIC, CREAT, CBC, ESR #### [facility] [address] Protein [Mass/Vol] 6.2 g/dL Low 6.4-8.9 [facility] Comment on above: Performed By: #### H LUZ MARIA WHELAN, CBC, ESR #### [facility] [address] Leukocytes [#/volume] correc edd for nucleated erythrocytes in Blood by Automated counOrdered By: Kyle Calderon on 11-03-2022 WBC corrected for nucl RBC Auto (Bld) [#/Vol] 12.0 10*3/uL 3.8-11.6 [facility] Lymphocytes Auto (Bld) [#/Vo l]Ordered By: Kyle Calderon on 11-03-2022 Lymphocytes (Bld) [#/Vol] 1.5 10*3/uL 1.00-4.8 [facility] Lymphocytes/100 WBC Auto (Bl d)Ordered By: Kyle Calderon on 11-03-2022 Lymphocytes/100 WBC (Bld) 12.4 % . [facility] MCH Auto (RBC) [Entitic mass ]Ordered By: Kyle Calderon on 11-03-2022 MCH (RBC) [Entitic mass] 31.0 pg 24.7-34.3 [facility] MCHC Auto (RBC) [Mass/Vol]Or dered By: Kyle Calderon on 11-03-2022 MCHC (RBC) [Mass/Vol] 33.3 g/dL 32.0-35.0 [facility] MCV Auto (RBC) [Entitic vol] Ordered By: Kyle Calderon on 11-03-2022 MCV (RBC) [Entitic vol] 93.2 fL 80-100 [facility] Monocytes Auto (Bld) [#/Vol] Ordered By: Kyle Calderon on 11-03-2022 Monocytes (Bld) [#/Vol] 0.9 10*3/uL 0.0-0.8 [facility] Monocytes/100 WBC Auto (Bld) Ordered By: Kyle Calderon on 11-03-2022 Monocytes/100 WBC (Bld) 7.2 % . [facility] Neutrophils Auto (Bld) [#/Vo l]Ordered By: Kyle Calderon on 11-03-2022 Neutrophils (Bld) [#/Vol] 9.4 10*3/uL 1.8-7.7 [facility] Neutrophils/100 WBC Auto (Bl d)Ordered By: Kyle Calderon on 11-03-2022 Neutrophils/100 WBC (Bld) 78.1 % . [facility] No Panel InformationOrdered By: Kyle Calderon on 11-03-2022 Estimated GFR (CKD-EPI) > 60.0 mL/Min [facility] Creatinine Clearance (Chem N/A [facility] Nucleated erythrocytes [Pres ence] in Blood by Automated countOrdered By: Kyle Calderon on 11-03-2022 Nucleated RBC Auto Ql (Bld) 0.0 /100{WBC} 0-0.5 [facility] Platelet mean volume Auto (B ld) [Entitic vol]Ordered By: Kyle Calderon on 11-03-2022 Platelet mean volume (Bld) [Entitic vol] 8.4 fL 6.3-10.7 [facility] Platelets Auto (Bld) [#/Vol] Ordered By: Kyle Calderon on 11-03-2022 Platelets (Bld) [#/Vol] 220 10*3/uL 150-450 [facility] Protein [Mass/volume] in Ser um or PlasmaOrdered By: Kyle Calderon on 11-03-2022 Protein [Mass/Vol] 6.2 g/dL 6.4-8.9 [facility] RBC Auto (Bld) [#/Vol]Ordere d By: Kyle Calderon on 11-03-2022 RBC (Bld) [#/Vol] 3.99 10*6/uL 3.60-5.00 [facility] Serum or plasma albumin/glob ulin mass ratioOrdered By: Kyle Calderon on 11-03-2022 Albumin/Globulin [Mass ratio] 1.8 {ratio} [facility] Serum or plasma non-glucuron idated bilirubin measurement (mass/volume)Ordered By: Kyle Calderon on 11-03-2022 Bilirubin.indirect [Mass/Vol] 0.6 mg/dL [facility] WBC Auto (Bld) [#/Vol]Ordere d By: Kyle Calderon on 11-03-2022 WBC (Bld) [#/Vol] 12.0 10*3/uL 3.8-11.6 [facility] XR pelvis 1-2Von 09-29-2022 XR pelvis 1-2V [facility] [employer] Other XR pelvis 1-2V [facility] [employer] Other XR pelvis 1-2V [address] [place] [address] [employer] Other XR pelvis 1-[place] [address] No rt [employer] Other XR pelvis 1-2V XRay Report [employer] Other XR pelvis 1-2V Signed [employer] Other XR pelvis 1-2V Patient: Laly Phillips MR#: [id number] [employer] Other XR pelvis 1-2V 03 [employer] Other XR pelvis 1-2V : 1965 Acct:[id number] [employer] Other XR pelvis 1-2V Age/Sex: 57 / F ADM Date: 09/29/22 [facility] Other XR pelvis 1-2V Loc: SOXD Room: Type : [facility] [employer] Other XR pelvis 1-2V Attending Dr: Kyle Call II, MD [facility] Other XR pelvis 1-2V Copies to: Kyle Call MD [employer] Other XR pelvis 1-2V Ordering Provider: Kyle Call MD [facility] Other XR pelvis 1-2V Date of Service: 09/29/22 [employer] Other XR pelvis 1-2V XR/XR pelvis 1-2V: S32.591D [facility] Other XR pelvis 1-2V Pelvis 3 views. [facility] Other XR pelvis 1-2V CLINICAL HISTORY: Right superior/inferior pubic rami fractures [employer] Other XR pelvis 1-2V COMPARISON: Pelvis study 07/07/2022 [employer] Other XR pelvis 1-2V Examination is suboptimal due to body habitus. [employer] Other XR pelvis 1-2V The patient's right-sided pubic rami fractures are less conspicuous when compared to the prior study [employer] Other XR pelvis 1-2V with questionable calculus formation along the inferior pubic ramus fracture suggestive of healing [employer] Other XR pelvis 1-2V response. No change in alignment is seen. No new additional fractures are noted. Mild degenerative [employer] Other XR pelvis 1-2V changes are noted involving the hips and SI joints. [facility] Other XR pelvis 1-2V XR/XR pelvis 1-2V [facility] Other XR pelvis 1-2V IMPRESSION: [facility] [employer] Other XR pelvis 1-2V HEALING PUBIC RAMI FRACTURES. [facility] Other XR pelvis 1-2V Impression dictated by: Kavon Choi Jr., D.O.09/29/2022 9:46 AM [facility] Other XR pelvis 1-2V Dictation Location: [place] [address] [employer] Other XR pelvis 1-2V Transcribed By: VASILE 09/29/22 0946 [employer] Other XR pelvis 1-2V Dictated By: Kavon Choi Jr, DO 09/29/22 0944 [facility] Other XR pelvis 1-2V Signed By: [employer] Other XR pelvis 1-2V 09/29/22 0946 [employer] Other MR hip RT wo conon 3 MR hip RT wo con [facility] [employer] Other MR hip RT wo con [facility] Main [place] No rt [employer] Other MR hip RT wo con [address] [facility] [address] [facility] [employer] [place] [address] [employer] Other MR hip RT wo con MRI Report [facility] Other MR hip RT wo con Signed [facility] Other MR hip RT wo con Patient: Laly Phillips MR#: [id number] [employer] Other MR hip RT wo con 03 [facility] Other MR hip RT wo con : 1965 Acct:[id number] [employer] Other MR hip RT wo con Age/Sex: 57 / F ADM Date: 07/27/22 [employer] Other MR hip RT wo con Loc: ICMR Room: Type : REG I [employer] Other MR hip RT wo con Attending Dr: Kyle Call II, MD [employer] Other MR hip RT wo con Copies to: Kyle Call MD [employer] Other MR hip RT wo con Ordering Provider: Kyle Call MD [employer] Other MR hip RT wo con Date of Service: 07/27/22 [employer] Other MR hip RT wo con MR/MR hip RT wo con: S32.591A CLOSED FX RAMUS OF RIGHT PUBUS [employer] Other MR hip RT wo con MRI of the right hip without IV contrast. [facility] Other MR hip RT wo con Reason for exam: History of right inferior pubic ramus fracture. Right hip pain. [facility] Other MR hip RT wo con COMPARISON: Pelvis 07/07/2022 [facility] Other MR hip RT wo con FINDINGS: Minimal joint effusion is seen. There appears to be a fractures involving the right [employer] Other MR hip RT wo con superior and inferio r pubic ramus with associated bone marrow edema. No significant displacement of [employer] Other MR hip RT wo con these fractures are seen. Labrum appears grossly intact. No hip fracture is seen. Muscle groups [employer] Other MR hip RT wo con appear grossly unremarkable. Visualized intrapelvic contents demonstrate no acute findings. [employer] Other MR hip RT wo con MR/MR hip RT wo con [employer] Other MR hip RT wo con IMPRESSION: Nondisplaced fractures involving the right superior and inferior pubic ramus with [employer] Other MR hip RT wo con associated bone marrow edema. [facility] Other MR hip RT wo con Impression dictated by: Kavon Choi Jr., D.O.07/27/2022 11:43 AM [facility] Other MR hip RT wo con Dictation Location: [place] [address] [employer] Other MR hip RT wo con Transcribed By: VASILE 07/27/22 1143 [employer] Other MR hip RT wo con Dictated By: Kavon Choi Jr, DO 07/27/22 1140 [facility] Other MR hip RT wo con Signed By: Sipsey [facility] [facility] [employer] Other MR hip RT wo con 07/27/22 1143 [employer] Other XR pelvis 1-2Von 07-07-2022 XR pelvis 1-2V [facility] [employer] Other XR pelvis 1-2V [facility] [employer] Other XR pelvis 1-2V [address] [place] [address] [employer] Other XR pelvis 1-2[place] [address] No rt [employer] Other XR pelvis 1-2V XRay Report [employer] Other XR pelvis 1-2V Signed [employer] Other XR pelvis 1-2V Patient: Laly Phillips MR#: [id number] [employer] Other XR pelvis 1-2V 03 [employer] Other XR pelvis 1-2V : 1965 Acct:[id number] [employer] Other XR pelvis 1-2V Age/Sex: 57 / F ADM Date: 07/07/22 [employer] Other XR pelvis 1-2V Loc: SOXD Room: Type : [facility] [employer] Other XR pelvis 1-2V Attending Dr: Kyle Call II, MD [employer] Other XR pelvis 1-2V Copies to: Kyle Call MD [employer] Other XR pelvis 1-2V Ordering Provider: Kyle Call MD [employer] Other XR pelvis 1-2V Date of Service: 07/07/22 [employer] Other XR pelvis 1-2V XR/XR hip RT min 2V(w/wo pelvis)*: PAIN [employer] Other XR pelvis 1-2V ([id number]) XR/XR pelvis 1-2V: PAIN [employer] Other XR pelvis 1-2V 2 views right hip single view pelvisplain film [employer] Other XR pelvis 1-2V COMPARISON:None [facility] Other XR pelvis 1-2V HISTORY:Status post right pubic rami fracture. Right hip pain [employer] Other XR pelvis 1-2V The nondisplaced right inferior pubic ramus fracture redemonstrated. Bony alignment unchanged. No [facility] Other XR pelvis 1-2V hip fracture. Adequate hip joint space.No significant degeneration. Articular surfaces preserved. [employer] Other XR pelvis 1-2V XR/XR hip RT min 2V(w/wo pelvis)* [employer] Other XR pelvis 1-2V IMPRESSION:Unchanged right inferior pubic ramus fracture. No hip fracture. [facility] Other XR pelvis 1-2V 2 views of the pelvis [employer] Other XR pelvis 1-2V Nondisplaced right inferior pubic ramus fracture identified. No additional fractures seen. No [facility] Other XR pelvis 1-2V diastases of the SI joints. Hip joint space is adequate. No hip fracture. [facility] Other XR pelvis 1-2V IMPRESSION: Nondisplaced right inferior pubic ramus fracture. [facility] Other XR pelvis 1-2V Impression dictated by: Ceasar Angeles M.D.07/07/2022 5:19 PM [facility] Other XR pelvis 1-2V Dictation Location: [facility]IO-PC-12 [facility] Other XR pelvis 1-2V Transcribed By: PWS 07/07/22 1717 [employer] Other XR pelvis 1-2V Dictated By: Ceasar Angeles DO 07/07/22 1717 [facility] Other XR pelvis 1-2V Signed By: [employer] Other XR pelvis 1-2V 07/07/22 1714 [employer] Other Covid-19 PCR ([facility])on 06-17 SARS-CoV-2 (COVID-19) RNA NANCY+probe Ql (Unsp spec) Detected Critically abnormal NOT DETECTED [facility] Comment on above: Result Comment: This test is not yet approved or cleared by the [place] FDA. When there are no FDA-approved or cleared tests available, and other criteria are met, FDA can make tests available under an emergency access mechanism called an Emergency Use Authorization (EUA). The EUA for this test is supported by the It Administrative Assistant of Health and Human Service's (HHS's) declaration [...] used). Performed By: #### C VDTBH #### [facility] [address] [place] [address] Dr. Heather Khan INFLUENZA A AND B AGon 06-30 INFLUANEGH SEE BELOW Normal [facility] Comment on above: Result Comment: Nega tive for Flu A protein angiten. Infection due to Flu A cannot be ruled out. Flu A angiten in the sample may be below the detection limit of the test. Performed By: #### I NFLUAB #### [facility] [address] [place] [address] Dr. Heather Khan [facility] SEE BELOW Normal [facility] Comment on above: Result Comment: Nega tive for Flu B protein antigen. Infection due to Flu B cannot be ruled out. Flu B antigen in the sample may be below the detection limit of the test. Performed By: #### I NFLUAB #### [facility] [address] [place] [address] Dr. Heather Khan INFLUENZA A AG Negative Normal NEGATIVE SEE COMMENT [facility] Comment on above: Performed By: #### I NFLUAB #### [facility] [address] [place] [address] Dr. Heather Khan INFLUENZA B AG Negative Normal NEGATIVE SEE COMMENT [facility] Comment on above: Performed By: #### I NFLUAB #### [facility] [address] [place] [address] Dr. Heather Khan INTERNAL CONTROLS Within Normal Limits Normal Wi thin Normal Limits [facility] Comment on above: Performed By: #### I NFLUAB #### [facility] [address] [place] [address] Dr. Heather Khan CULTURE WOUNDon 05-22-2022 CULTURE WOUND Culture Observations [...] F Oxacillin <=0.25 S F Normal [facility] Comment on above: Performed By: #### W OUNDCX #### [facility] [address], [place] [address] Dr. 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 Normal [employer] Tobacco Screening.on Adult depression screening assessment No [facility] 250 DO Work Phone: Tobacco use status CPHS b) No [facility] 250 DO Work Phone: XR HIP LT [...] MIGUEL SERNA Date: 2022-03-01 09:02 Normal [facility] Body fluid albumin measureme nt (mass/volume)Ordered By: Kyle Calderon on 02-22-2022 Albumin (Body fld) [Mass/Vol] 3.6 g/dL 3.2-5.5 [facility] Direct bilirubin measurement Ordered By: Kyle Calderon on 02-22-2022 Bilirubin.direct [Mass/Vol] 0.1 mg/dL 0.0-0.4 [facility] Globulin Calc (S) [Mass/Vol] Ordered By: Kyle Calderon on 02-22-2022 Globulin (S) [Mass/Vol] 3.0 g/dL [facility] Protein [Mass/volume] in Ser um or PlasmaOrdered By: Kyle Calderon on 02-22-2022 Protein [Mass/Vol] 6.6 g/dL 6.1-7.9 [facility] Serum or plasma alanine gilbert otransferase measurement without P-5'-P (enzymatic activiOrdered By: Kyle Calderon on 02-22-2022 ALT No additional P-5'-P [Catalytic activity/Vol] 26 U/L 10-60 [facility] Serum or plasma albumin/glob ulin mass ratioOrdered By: Kyle Calderon on 02-22-2022 Albumin/Globulin [Mass ratio] 1.2 {ratio} [facility] Serum or plasma alkaline steven sphatase measurement (enzymatic activity/volume)Ordered By: Kyle Calderon on 02-22-2022 ALP [Catalytic activity/Vol] 74 U/L 32-92 [facility] Serum or plasma aspartate am inotransferase measurement (enzymatic activity/volume)Ordered By: Kyle Calderon on 02-22-2022 AST [Catalytic activity/Vol] 24 U/L 10-42 [facility] Serum or plasma non-glucuron idated bilirubin measurement (mass/volume)Ordered By: Kyle Calderon on 02-22-2022 Bilirubin.indirect [Mass/Vol] 0.1 mg/dL [facility] Serum or plasma total biliru bin measurement (mass/volume)Ordered By: Kyle Calderon on 02-22-2022 Bilirubin [Mass/Vol] 0.2 mg/dL 0.3-1.2 [facility] Basophils Auto (Bld) [#/Vol] Ordered By: Kyle Calderon on 02-10-2022 Basophils (Bld) [#/Vol] 0.1 10*3/uL 0.0-0.2 [facility] Basophils/100 WBC Auto (Bld) Ordered By: Kyle Calderon on 02-10-2022 Basophils/100 WBC (Bld) 0.6 % . [facility] Blood hemoglobin measurement (mass/volume)Ordered By: Kyle Calderon on 02-10-2022 Hemoglobin (Bld) [Mass/Vol] 11.9 g/dL 11.8-15.4 [facility] Blood leukocytes automated c ount (number/volume)Ordered By: Kyle Calderon on 02-10-2022 WBC (Bld) [#/Vol] 11.4 10*3/uL 4.5-11.0 [facility] Creatinine and Glomerular fi ltration rate.predicted panel (S/P/Bld)Ordered By: Kyle Calderon on 02-10-2022 Creatinine [Mass/Vol] 0.93 mg/dL 0.44-1.03 [facility] Eosinophils Auto (Bld) [#/Vo l]Ordered By: Kyle Calderon on 02-10-2022 Eosinophils (Bld) [#/Vol] 0.2 10*3/uL 0.0-0.45 [facility] Eosinophils/100 WBC Auto (Bl d)Ordered By: Kyle Calderon on 02-10-2022 Eosinophils/100 WBC (Bld) 1.8 % . [facility] Erythrocyte distribution wid th Auto (RBC) [Ratio]Ordered By: Kyle Calderon on 02-10-2022 Erythrocyte distribution width (RBC) [Ratio] 14.0 % 11.9-15.3 [facility] Erythrocyte sedimentation ra te by Photometric methodOrdered By: Kyle Calderon on 02-10-2022 ESR Photometric method (Bld) [Velocity] 30 mm/hr 0-29 [facility] Estimated glomerular filtrat ion rate (GFR) non- AmericanOrdered By: Kyle Calderon on 02-10-2022 GFR/1.73 sq M.predicted among non-blacks MDRD (S/P/Bld) [Vol rate/Area] > 60 mL/Min [facility] Hematocrit Auto (Bld) [Volum e fraction]Ordered By: Kyle Calderon on 02-10-2022 Hematocrit (Bld) [Volume fraction] 35.9 % 34.0-46.4 [facility] Hepatitis A virus Ab [Presen ce] in Serum by ImmunoassayOrdered By: Kyle Calderon on 02-10-2022 HAV Ab IA Ql (S) Negative Negative [facility] Comment on above: Performed at: [address] [id number] [employer]: Thompson Osullivan PhD, Phone: [phone] Hepatitis B virus surface Ag [Presence] in Serum or Plasma by ImmunoassayOrdered By: Kyle Calderon on 02-10-2022 HBV surface Ag IA Ql Negative Negative [facility] - Hematology and Cell countsOrdered By: Kyle Calderon on 02-10-2022 Nucleated RBC/100 WBC (Bld) [Ratio] 0.1 % 0-0.5 [facility] Lymphocytes Auto (Bld) [#/Vo l]Ordered By: Kyle Calderon on 02-10-2022 Lymphocytes (Bld) [#/Vol] 1.5 10*3/uL 1.00-4.8 [facility] Lymphocytes/100 WBC Auto (Bl d)Ordered By: Kyle Calderon on 02-10-2022 Lymphocytes/100 WBC (Bld) 13.0 % . [facility] MCH Auto (RBC) [Entitic mass ]Ordered By: Kyle Calderon on 02-10-2022 MCH (RBC) [Entitic mass] 30.1 pg 24.7-34.3 [facility] MCHC Auto (RBC) [Mass/Vol]Or dered By: Kyle Calderon on 02-10-2022 MCHC (RBC) [Mass/Vol] 33.1 g/dL 32.0-35.0 [facility] MCV Auto (RBC) [Entitic vol] Ordered By: Kyle Calderon on 02-10-2022 MCV (RBC) [Entitic vol] 91.1 fL 80-100 [facility] Monocytes Auto (Bld) [#/Vol] Ordered By: Kyle Calderon on 02-10-2022 Monocytes (Bld) [#/Vol] 0.6 10*3/uL 0.0-0.8 [facility] Monocytes/100 WBC Auto (Bld) Ordered By: Kyle Calderon on 02-10-2022 Monocytes/100 WBC (Bld) 5.3 % . [facility] Neutrophils Auto (Bld) [#/Vo l]Ordered By: Kyle Calderon on 02-10-2022 Neutrophils (Bld) [#/Vol] 9.0 10*3/uL 1.8-7.7 [facility] Neutrophils/100 WBC Auto (Bl d)Ordered By: Kyle Calderon on 02-10-2022 Neutrophils/100 WBC (Bld) 79.3 % . [facility] No Panel InformationOrdered By: Kyle Calderon on 02-10-2022 Estimated GFR () > 60 mL/Min [facility] Comment on above: GFR estimated refere nce range: According to KDOQI guidelines, <60 ml/min/1.73m2 is sufficient to diagnose a patient with chronic kidney disease. Hepatitis B Core Total Antibody Negative Negative [facility] Hepatitis C Interpretation See comment . [facility] Comment on above: Negative Not infected with HCV, unless recent infection is suspected or other evidence exists to indicate HCV infection. Hepatitis C RNA Quantitative N/A [facility] Creatinine Clearance (Chem N/A [facility] Platelet mean volume Auto (B ld) [Entitic vol]Ordered By: Kyle Calderon on 02-10-2022 Platelet mean volume (Bld) [Entitic vol] 8.2 fL 6.3-10.7 [facility] Platelets Auto (Bld) [#/Vol] Ordered By: Kyle Calderon on 02-10-2022 Platelets (Bld) [#/Vol] 272 10*3/uL 150-450 [facility] RBC Auto (Bld) [#/Vol]Ordere d By: Kyle Calderon on 02-10-2022 RBC (Bld) [#/Vol] 3.95 10*6/uL 3.60-5.00 [facility] Serum hepatitis B virus surf lakeshia antibody detectionOrdered By: Kyle Calderon on 02-10-2022 HBV surface Ab Ql (S) Non-Reactive . [facility] Comment on above: Non Reactive: Incons istent with immunity, less than 10 mIU/mL Reactive: Consistent with immunity, greater than 9.9 mIU/mL Serum or plasma hepatitis C virus antibody signal/cutoff ratio by immunoassay (relatiOrdered By: Kyle Calderon on 02-10-2022 HCV Ab Signal/Cutoff IA [Rel units/Vol] 0.1 s/co ratio 0.0-0.9 [facility] MUGA SCAN INJECTIONon [facility] MUGA SCAN INJECTION Patient Name: FELICITY PHILLIPS STUDY: MUGA Performing facility: [facility], [address] [place] [address], [address] Provider: Amanuel Valladares RN, CARDIAC CATHETERIZATION TECHNOLOGIST PCP: Dr. Lorenzo Garza Supervising provider: Yanet Sommer MD INDICATION: SOB; Non-ischemic cardiomyopathy HISTORY: Gender: F; Age: 55 y/o ; Height: 154.94 cm; Weight: 901.4395365 kg. HTN; SOB; Quit smoking unknown years ago. Cardiac catheterization on 2016. COMPARISON: Previous nuclear testing completed [id number] at [facility]. Previous echo testing completed [id number] at [facility]. ACCESSION NUMBER(S): [id number]; [id number] ORDERING CLINICIAN: AMANUEL VALLADARES TECHNIQUE: The patient received an IV injection of 3 ml of stannous pyrophosphate (PYP) using the in-vivo method of labeling red blood cells. After 15 minutes the patient received another IV injection of 27.0 mCi of Technetium 99m pertechnetate. Planar images of the left ventricle were obtained in the KYRGYZ 45, Lt Lateral and anterior projections. FINDINGS: [...] Electronically signed by: YANET SOMMER MD Normal [facility] Echocardiogramon 09-04-2020 Echocardiography [facility] [address] [place] [address], [address], [place] [address] TRANSTHORACIC ECHOCARDIOGRAM REPORT Patient Name: FELICITY PHILLIPS Reading Physician: [id number] Jose Carlos Hernandez DO Study Date: 09/04/2020 Referring Physician: [id number] AMANUEL VALLADARES MRN/PID: [id number] PCP: Jose Antonio Garza Accession/Order#: [id number] Department Location: [facility] Date of : 1965 Fellow: Gender: F Nurse: Nyasia Cain RN Admit Date: Indoor Landscape Architect: Judy Rocha RDCS, RVT Height: 154.94 cm CC Report to: Weight: 104.78 kg Study Type: Echocardiogram BSA: 2.01 m2 Blood Pressure: 128 /68 mmHg Diagnosis/ICD: I42.8-Other cardiomyopathies; R06.02-Shortness of breath Indication: HTN, CHARBEL, Former Smoker, Morbid Obesity Procedure/CPT: Echo Complete w Full [id number] Study Detail: The following Echo studies were [...] mmHg PIEDV: 1.78 m/s PADP: 15.7 mmHg [id number] Jose Carlos Hernandez DO Electronically signed on 09/04/2020 at 4:00:50 PM Final Normal [facility] OBSOLETEon 08-02-2018 OBSOLETE Refill (ADELA) FELICITY PHILLIPS ([id number]) 1965 F Date Time Provider Department 08/02/18 CEASAR CNUHA During your visit today, we recorded the following information about you: Maye Vora 08/02/2018 9:23 AM Signed Pharmacy verified in Epic Patient has been identified by name and date of : Yes Prescription must be called to the pharmacy (non-escript). [facility] phone [phone]. Please call patient after medication has been [...] kg (225 lb) Not applicable Please advise. Mayeholly Amaral APRN.CARDIAC CATHETERIZATION TECHNOLOGIST 08/03/2018 9:25 AM Signed We have no [...] copy of the labs. Thanks, Brandie Amaral APRN.CARDIAC CATHETERIZATION TECHNOLOGIST Allergies As of Date: 08/02/2018 Noted Allergy [...] Status:Closed by BRANDIE AMARAL CNP on 08/03/18 [facility] CNOVon 05-30-2018 CNOV Office Visit (CARDFT ) FELICITY PHILLIPS ([id number]) 1965 F Date Time Provider Department 05/30/18 9:30 AM CEASAR CUNHA During your visit today, we recorded the following information about you: Pulse Blood pressure Weight Height 82/minute 142/80 105.1 kg 1.524 m Ceasar Cunha MD 05/30/2018 9:42 AM [facility] [place] [facility] Rodriguez Department of Cardiovascular Medicine OUTPATIENT VISIT DATE 05/30/18 OUTPATIENT VISIT TYPE ESTABLISHED PRIMARY CARE PHYSICIAN: Jose Antonio Garza MD [address] [place] [phone] CHIEF COMPLAINT: Patient presents with: Follow Up [...] visit. Apparently she had a hospitalization at [facility] which led to transfer to [facility]. She had a [...] T-wave changes. The patient was sent to [place] emergency room where she was evaluated and eventually transferred to [facility] where she underwent [...] her echocardiogram noted above. Cardiac catheterization at [facility] in January 2017 revealed normal coronary arteries and a mild to moderate reduction in left ventricular ejection fraction at 40%. The LVEDP was elevated at 20-25 mmHg. A 2-D echocardiogram performed at [facility] in January 2017 [...] U.S. Mail. This document was generated utilizing [employer] dictation. I have reviewed and verified that the contents of the document are accurate with the exception of minor grammatical, spelling and punctuation errors. CONTACT INFORMATION: Thank you for allowing us to participate in the care of this very pleasant patient. Please free to contact us if we can be of any further assistance. Ceasar Cunha MD, [facility] Nataly Rodriguez Department of Cardiovascular Medicine [facility] [place] [facility] [address] [address] Office: [phone] Referring Provider: JOSE ANTONIO GARZA [[id number]] Allergies As of Date: 05/30/2018 Noted Allergy [...] by JENNY CUNHA MD on 05/30/18 Normal [facility] PROGRESSon 05-30-2018 Protein mass conc HNO ID: [id number] Author: Ceasar Cunha Service: (none) Author Type: Physician Type: Progress Notes Filed: 05/30/2018 9:42 AM Note Text: [facility] Department of Cardiovascular Medicine OUTPATIENT VISIT DATE 05/30/18 OUTPATIENT VISIT TYPE ESTABLISHED PRIMARY CARE PHYSICIAN: Jose Antonio Garza MD [address] [place] [phone] CHIEF COMPLAINT: Patient presents with: Follow Up [...] visit. Apparently she had a hospitalization at [facility] which led to transfer to [facility]. She had a [...] T-wave changes. The patient was sent to [place] emergency room where she was evaluated and eventually transferred to [facility] where she underwent [...] her echocardiogram noted above. Cardiac catheterization at [facility] in January 2017 revealed normal coronary arteries and a mild to moderate reduction in left ventricular ejection fraction at 40%. The LVEDP was elevated at 20-25 mmHg. A 2-D echocardiogram performed at [facility] in January 2017 [...] U.S. Mail. This document was generated utilizing [email or web address] dictation. I have reviewed and verified that the contents of the document are accurate with the exception of minor grammatical, spelling and punctuation errors. CONTACT INFORMATION: Thank you for allowing us to participate in the care of this very pleasant patient. Please free to contact us if we can be of any further assistance. Ceasar Cunha MD, [facility] Department of Cardiovascular Medicine Heart [facility] [place] [facility] [address] [place], [place] [address] Office: [phone] Normal [facility] CNOVon 01-30-2018 CNOV Office Visit (CARDFT ) FELICITY PHILLIPS ([id number]) 1965 F Date Time Provider Department 01/30/18 10:30 AM CEASAR CUNHA During your visit today, we recorded the following information about you: Pulse Respiration Blood pressure Weight 69/minute 16/minute 133/74 102.1 kg Ceasar Cunha MD 01/30/2018 11:03 AM [facility] [place] Department of Cardiovascular Medicine OUTPATIENT VISIT DATE 01/30/18 OUTPATIENT VISIT TYPE ESTABLISHED PRIMARY CARE PHYSICIAN: Jose Antonio Garza MD [address] [facility] [phone] CHIEF COMPLAINT: Patient presents with: Follow Up [...] visit. Apparently she had a hospitalization at [facility] which led to transfer to [facility]. She had a [...] T-wave changes. The patient was sent to [place] emergency room where she was evaluated and eventually transferred to [facility] where she underwent [...] her echocardiogram noted above. Cardiac catheterization at [facility] in January 2017 revealed normal coronary arteries and a mild to moderate reduction in left ventricular ejection fraction at 40%. The LVEDP was elevated at 20-25 mmHg. A 2-D echocardiogram performed at [facility] in January 2017 [...] U.S. Mail. This document was generated utilizing [employer] dictation. I have reviewed and verified that the contents of the document are accurate with the exception of minor grammatical, spelling and punctuation errors. CONTACT INFORMATION: Thank you for allowing us to participate in the care of this very pleasant patient. Please free to contact us if we can be of any further assistance. Ceasar Cunha MD, [facility] Department of Cardiovascular Medicine Heart [facility] [place] [facility] [place] [address] Office: [phone] Referring Provider: JOSE ANTONIO GARZA [[id number]] Allergies As of Date: 01/30/2018 Noted Allergy [...] by JENNY CUNHA MD on 01/30/18 Normal [facility] PROGRESSon 01-30-2018 Protein mass conc HNO ID: [id number] Author: Ceasar Cunha Service: (none) Author Type: Physician Type: Progress Notes Filed: 01/30/2018 11:03 AM Note Text: [facility] [place] Rodriguez Department of Cardiovascular Medicine OUTPATIENT VISIT DATE 01/30/18 OUTPATIENT VISIT TYPE ESTABLISHED PRIMARY CARE PHYSICIAN: Jose Antonio Garza MD [address] [facility] [phone] CHIEF COMPLAINT: Patient presents with: Follow Up [...] visit. Apparently she had a hospitalization at [facility] which led to transfer to [facility]. She had a [...] T-wave changes. The patient was sent to [place] emergency room where she was evaluated and eventually transferred to [facility] where she underwent [...] her echocardiogram noted above. Cardiac catheterization at [facility] in January 2017 revealed normal coronary arteries and a mild to moderate reduction in left ventricular ejection fraction at 40%. The LVEDP was elevated at 20-25 mmHg. A 2-D echocardiogram performed at [facility] in January 2017 [...] U.S. Mail. This document was generated utilizing [email or web address] dictation. I have reviewed and verified that the contents of the document are accurate with the exception of minor grammatical, spelling and punctuation errors. CONTACT INFORMATION: Thank you for allowing us to participate in the care of this very pleasant patient. Please free to contact us if we can be of any further assistance. Ceasar Cunha MD, [facility] Department of Cardiovascular Medicine Heart [facility] [place] [facility] [place] [address] Office: [phone] Normal [facility] Vital Signs Date Time Vital Sign Value Performing Clinician Facility 11-10-2023 14:38-0400 Body height 154.9 cm Amanuel Valladares SHUTTLE SPOTTER-CARDIAC CATHETERIZATION TECHNOLOGIST Work Phone: [facility] 11-10-2023 14:38-0400 Body mass index (BMI) [Ratio] 40.43 kg/m2 Amanuel Valladares SHUTTLE SPOTTER-CARDIAC CATHETERIZATION TECHNOLOGIST Work Phone: [facility] 11-10-2023 14:38-0400 Body weight 97.07 kg Amanuel Valladares SHUTTLE SPOTTER-CARDIAC CATHETERIZATION TECHNOLOGIST Work Phone: [facility] 11-10-2023 14:38-0400 Diastolic blood pressure 92 mm[Hg] Amanuel Valladares SHUTTLE SPOTTER-CARDIAC CATHETERIZATION TECHNOLOGIST Work Phone: [facility] 11-10-2023 14:38-0400 Heart rate 69 /min Amanuel Valladares SHUTTLE SPOTTER-CARDIAC CATHETERIZATION TECHNOLOGIST Work Phone: [facility] 11-10-2023 14:38-0400 Systolic blood pressure 138 mm[Hg] Amanuel Valladares SHUTTLE SPOTTER-CARDIAC CATHETERIZATION TECHNOLOGIST Work Phone: [facility] 05-31-2023 23:54-0500 Diastolic blood pressure 80 mm[Hg] MD Jose Antonio Garza Work Phone: [facility] 05-31-2023 23:54-0500 Systolic blood pressure 178 mm[Hg] MD Jose Antonio Garza Work Phone: [facility] 05-31-2023 21:57-0500 Body height 152.4 cm MD Jose Antonio Garza Work Phone: [facility] 05-31-2023 21:57-0500 Body temperature 98.9 [degF] MD Jose Antonio Garza Work Phone: [facility] 05-31-2023 21:57-0500 Body weight 102.65 kg MD Jose Antonio Garza Work Phone: [facility] 05-31-2023 21:57-0500 Heart rate 98 /min MD Jose Antonio Garza Work Phone: [facility] 05-31-2023 21:57-0500 Respiratory rate 20 /min MD Jose Antonio Garza Work Phone: [facility] 05-31-2023 21:57-0500 SaO2% (BldA) [Mass fraction] 96 % MD Jose Antonio Garza Work Phone: [facility] 05-11-2023 08:13-0400 Body height 154.9 cm Amanuel Valladares SHUTTLE SPOTTER-CARDIAC CATHETERIZATION TECHNOLOGIST Work Phone: [facility] 05-11-2023 08:13-0400 Body mass index (BMI) [Ratio] 42.32 kg/m2 Amanuel Valladares SHUTTLE SPOTTER-CARDIAC CATHETERIZATION TECHNOLOGIST Work Phone: [facility] 05-11-2023 08:13-0400 Body weight 101.61 kg Amanuel Valladares SHUTTLE SPOTTER-CARDIAC CATHETERIZATION TECHNOLOGIST Work Phone: [facility] 05-11-2023 08:13-0400 Diastolic blood pressure 80 mm[Hg] Amanuel Valladares SHUTTLE SPOTTER-CARDIAC CATHETERIZATION TECHNOLOGIST Work Phone: [facility] 05-11-2023 08:13-0400 Heart rate 92 /min Amanuel Valladares SHUTTLE SPOTTER-CARDIAC CATHETERIZATION TECHNOLOGIST Work Phone: [facility] 05-11-2023 08:13-0400 Systolic blood pressure 130 mm[Hg] Amanuel Valladares SHUTTLE SPOTTER-CARDIAC CATHETERIZATION TECHNOLOGIST Work Phone: [facility] 02-24-2023 11:56-0400 Body temperature 98.06 [degF] [facility] 02-24-2023 11:56-0400 Diastolic blood pressure 100 mm[Hg] [facility] 02-24-2023 11:56-0400 Heart rate 89 /min [facility] 02-24-2023 11:56-0400 Respiratory rate 16 /min [facility] 02-24-2023 11:56-0400 SaO2% (BldA) [Mass fraction] 98 % [facility] 02-24-2023 11:56-0400 Systolic blood pressure 200 mm[Hg] [facility] 11-25-2022 12:00-0400 Body height 154.94 cm Nancy Kapadia Other [facility] Other 11-25-2022 12:00-0400 Body mass index (BMI) [Ratio] 45.91 kg/m2 Nancy Kapadia Other [facility] Other 11-25-2022 12:00-0400 Body weight 110.22 kg Nancy Kapadia Other [facility] Other 11-25-2022 12:00-0400 Diastolic blood pressure 98 mm[Hg] Nancy Kapadia Other [facility] Other 11-25-2022 12:00-0400 Systolic blood pressure 160 mm[Hg] Nancy Kapadia Other [facility] Other 07-07-2022 14:00-0500 Body height 154.94 cm Kyle Call II Other [facility] Other 07-07-2022 14:00-0500 Body mass index (BMI) [Ratio] 41.56 kg/m2 Kyle Call II Other [facility] Other 07-07-2022 14:00-0500 Body weight 99.79 kg Kyle Call II Other [facility] Other 07-05-2022 13:34-0500 Body height 154.94 cm MD Jose Antonio Garza Work Phone: [facility] 07-05-2022 13:34-0500 Body temperature 97.5 [degF] MD Jose Antonio Garza Work Phone: [facility] 07-05-2022 13:34-0500 Body weight 100 kg MD Jose Antonio Garza Work Phone: [facility] 07-05-2022 13:34-0500 Diastolic blood pressure 98 mm[Hg] MD Jose Antonio Garza Work Phone: [facility] 07-05-2022 13:34-0500 Heart rate 85 /min MD Jose Antonio Garza Work Phone: [facility] 07-05-2022 13:34-0500 Respiratory rate 20 /min MD Jose Antonio Garza Work Phone: [facility] 07-05-2022 13:34-0500 SaO2% (BldA) [Mass fraction] 96 % MD Jose Antonio Garza Work Phone: [facility] 07-05-2022 13:34-0500 Systolic blood pressure 188 mm[Hg] MD Jose Antonio Garza Work Phone: [facility] 05-19-2022 14:53-0400 Blood Pressure Location Jose Carlos SALCEDO [facility] [place] 05-19-2022 14:53-0400 Diastolic blood pressure 82 mm[Hg] Jose Carlos SALCEDO [facility] [place] 05-19-2022 14:53-0400 Heart rate 80 /min Jose Carlos FARAHL [facility] [place] 05-19-2022 14:53-0400 Respiratory rate 16 /min Jose Carlos FARAHL [facility] [place] 05-19-2022 14:53-0400 Systolic blood pressure 120 mm[Hg] Jose Carlos FARAHL [facility] [place] 05-10-2022 09:07-0400 Body temperature 98.06 [degF] Mamadou Gonzalez [facility] 05-10-2022 09:07-0400 Diastolic blood pressure 88 mm[Hg] Mamadou Gonzalez [facility] 05-10-2022 09:07-0400 Heart rate 68 /min Mamadou Gonzalez [facility] 05-10-2022 09:07-0400 Respiratory rate 20 /min Mamadou Gonzalez [facility] 05-10-2022 09:07-0400 SaO2% (BldA) [Mass fraction] 98 % Mamadou Gonzalez [facility] 05-10-2022 09:07-0400 Systolic blood pressure 146 mm[Hg] Mamadou Gonzalez [facility] 03-18-2022 08:56-0400 Body height 154.94 cm Jose Antonio Avina Coolstuffy Work Phone: [facility] 250 DO Work Phone: 03-18-2022 08:56-0400 Body mass index (BMI) [Ratio] 43.69 kg/m2 Jose Antonio Interactive Project Hoy Work Phone: [facility] 250 DO Work Phone: 03-18-2022 08:56-0400 Body surface area Derived from formula 2.01 m2 Jose Antonio Fabrice Hoy Work Phone: [facility] 250 DO Work Phone: 03-18-2022 08:56-0400 Body weight 104.89 kg Jose Antonio Fabrice Hoy Work Phone: [facility] 250 DO Work Phone: 03-18-2022 08:56-0400 Diastolic blood pressure 82 mm[Hg] Jose Antonio Fabrice Hoy Work Phone: [facility] 250 DO Work Phone: 03-18-2022 08:56-0400 Heart rate 78 /min Jose Antonio Fabrice Hoy Work Phone: [facility] 250 DO Work Phone: 03-18-2022 08:56-0400 Systolic blood pressure 140 mm[Hg] Jose Antonio Fabrice Hoy Work Phone: [facility] 250 DO Work Phone: Encounters Encounter Date Encounter Type Care Provider Facility Start: 11-10-2023 End: 11-10-2023 ambulatory [facility] Ambulatory Start: 11-10-2023 End: 11-10-2023 Encounter for other preprocedural examination [facility] Ambulatory Start: 11-10-2023 End: 11-10-2023 Office outpatient visit 15 minutes Amanuel Rosalia Houlton SHUTTLE SPOTTER-CARDIAC CATHETERIZATION TECHNOLOGIST Work Phone: [facility] Comment on above: Pre-operative cleara nce (Primary Dx); Non-ischemic cardiomyopathy (Multi); Primary hypertension; Morbid obesity (Multi) Start: 11-10-2023 End: 11-10-2023 Preoperative state Amanuel Rosalia Valladares SHUTTLE SPOTTER-CARDIAC CATHETERIZATION TECHNOLOGIST Work Phone: [facility] Work Phone: Start: 10-31-2023 ambulatory [facility] Start: 09-27-2023 End: 09-27-2023 ambulatory Kyle Calderon Facility:[facility] Start: 08-01-2023 End: 08-01-2023 ambulatory BRITTANY CHOUDHURY Not Available Start: 06-27-2023 End: 06-27-2023 ambulatory BRITTANY CHOUDHURY Not Available Start: 06-21-2023 End: 06-21-2023 ambulatory BRITTANY CHOUDHURY Not Available Start: 05-31-2023 End: 06-01-2023 Emergency department patient visit Stef Molina Jr Facility:[facility] Start: 05-31-2023 End: 05-31-2023 Emergency department patient visit MD Jose Antonio Garza Work Phone: [facility] Work Phone: Start: 05-11-2023 End: 05-11-2023 ambulatory [facility] Ambulatory Start: 05-11-2023 End: 05-11-2023 Office outpatient visit 15 minutes [facility] SHUTTLE SPOTTER-CARDIAC CATHETERIZATION TECHNOLOGIST Work Phone: [facility] Comment on above: Non-ischemic cardiom yopathy (CMS/HCC) (Primary Dx); Primary hypertension; Obstructive sleep apnea syndrome; Morbid obesity (CMS/HCC); Hypertension, unspecified type; SOB (shortness of breath) on exertion Start: 04-28-2023 End: 04-28-2023 ambulatory Jose Antonio Garza Facility:[facility] Start: 04-28-2023 End: 04-28-2023 ambulatory MD Jose Antonio Garza Work Phone: [facility] Work Phone: Start: 04-28-2023 End: 04-28-2023 Patient encounter procedure MD Jose Antonio Garza Work Phone: [facility] [address] Work Phone: Start: 03-28-2023 Rx Renewal Jose Antonio Garza Work Phone: [facility] 250 DO Work Phone: Start: 02-24-2023 End: 02-24-2023 Emergency department patient visit Briaan Winters Facility[facility] Start: 02-24-2023 End: 02-24-2023 [facility] Start: 01-05-2023 End: 01-05-2023 ambulatory Kyle Calderon Facility:[facility] Start: 01-05-2023 End: 01-05-2023 ambulatory MD Jose Antonio Garza Work Phone: [facility] Work Phone: Start: 01-05-2023 End: 01-05-2023 Patient encounter procedure MD Jose Antonio Garza Work Phone: [facility] [address] Work Phone: Start: 11-30-2022 End: 11-30-2022 ambulatory Maxi Glez Other [place] Other Start: 11-30-2022 Telephone encounter Maxi Newton [facility] Start: 11-25-2022 End: 11-25-2022 ambulatory Nancy Kapadia Other [employer] Other Start: 11-25-2022 Office outpatient ne w 45 minutes Nancy Kapadia [facility] Start: 11-22-2022 Rx Renewal Jose Antonio Garza Work Phone: [facility] 600 DO Work Phone: Start: 11-13-2022 End: 11-14-[address] JOSE ANTONIO GARZA . Facility: Start: 11-03-2022 End: 11-03-2022 ambulatory Kyle Calderon Facility:[facility] Start: 11-03-2022 End: 11-03-2022 ambulatory MD Jose Antonio Garza Work Phone: [facility] Work Phone: Start: 11-03-2022 End: 11-03-2022 Patient encounter procedure MD Jose Antonio Garza Work Phone: [facility] [address] Work Phone: Start: 11-01-2022 Rx Renewal Jose Antonio Garza Work Phone: [facility] 250 DO Work Phone: Start: 10-19-2022 End: 10-19-2022 ambulatory Kyle Atlantic II Other [facility] Other Start: 10-19-2022 Telephone encounter Kyle Jakub II [facility] Start: 10-07-2022 End: 10-07-2022 ambulatory Kyle Atlantic II Other [place] Other Start: 10-07-2022 Telephone encounter Kyle Atlantic II [facility] Start: 09-29-2022 Office outpatient vi sit 25 minutes Kyle Atlantic II [facility] Start: 09-29-2022 End: 09-29-2022 ambulatory MD Jose Antonio Garza Work Phone: [facility] Work Phone: Start: 09-29-2022 End: 09-29-2022 Patient encounter procedure MD Jose Antonio Garza Work Phone: [facility] [facility] Start: 09-06-2022 Rx Renewal Jose Antonio Garza Work Phone: [facility] 250 DO Work Phone: Start: 08-02-2022 End: 08-02-2022 ambulatory Kyle Atlantic II Other [place] Other Start: 08-02-2022 Telephone encounter Kyle Jakub II [facility] Start: 07-30-2022 End: 07-30-2022 ambulatory Kyle Atlantic II Other [place] Other Start: 07-30-2022 Office outpatient vi sit 25 minutes Kyle Atlantic II [facility] Start: 07-27-2022 End: 07-27-2022 Patient encounter procedure MD Jose Antonio Garza Work Phone: [facility] Work Phone: Start: 07-22-[address] JOSE ANTONIO GARZA . Facili ty:[facility]1 Start: 07-07-2022 Office outpatient ne w 45 minutes Kyle Jakub II [facility] Start: 07-07-2022 End: 07-07-2022 ambulatory MD Jose Antonio Garza Work Phone: [facility] Work Phone: Start: 07-07-2022 End: 07-07-2022 Patient encounter procedure MD Jose Antonio Garza Work Phone: [facility] Start: 07-05-2022 End: 07-05-2022 Emergency department patient visit MD Jose Antonio Garza Work Phone: [facility]-Emergency Room Start: 06-30-2022 End: 06-30-[address] JOSE ANTONIO GARZA . Facility:[facility] Start: 05-19-2022 End: 05-19-[address] JOSE ANTONIO GARZA . Facility:[facility] Start: 05-19-2022 End: 05-19-2022 Patient encounter procedure Jose Carlos SALCEDO General [facility]/Said Jaleel Start: 05-10-2022 End: 05-10-2022 Emergency department patient visit Mamadou Carlos [facility] Start: 03-18-2022 Office outpatient vi sit 15 minutes Jose Antonio Garza Work Phone: [facility] 250 DO Work Phone: Start: 03-01-2022 End: 03-01-[address] JOSE ANTONIO GARZA . Facility:[facility] Start: 02-22-2022 End: 02-22-2022 Patient encounter procedure MD Jose Antonio Garza Work Phone: [facility] [address] Start: 02-15-2022 End: 02-16-[address] JOSE ANTONIO GARZA . Facility: Start: 02-10-2022 End: 02-10-2022 Patient encounter procedure MD Jose Antonio Garza Work Phone: [facility] [address] [place] Start: 01-26-2022 Rx Renewal Jose Antonio Garza Work Phone: [facility] 250 DO Work Phone: Start: 01-22-2022 Rx Renewal Jose Antonio Garza Work Phone: [facility] 250 DO Work Phone: Start: 10-06-2021 AUDIT Jose Antonio Fabrice Kayla Work Phone: [facility] 250 DO Work Phone: Start: 10-17-2018 Patient encounter procedure PROVIDER UNKNOWN Facility:[id number] Start: 10-17-2018 Patient encounter procedure Facility:[id number] Start: 05-30-2018 End: 06-09-2018 Patient encounter procedure CEASAR CUNHA [facility] Start: 01-30-2018 End: 01-30-2018 Patient encounter procedure CEASAR CUNHA [facility] Start: 04-07-2017 End: 04-08-2017 Ambulatory DEFAULT PHYSICIAN Facility:[facility] Procedures Date Procedure Procedure Detail Performing Clinician Start: 11-10-2023 Ecg routine ecg w/le ast 12 lds w/i&r Amanuel Valladares SHUTTLE SPOTTER-CARDIAC CATHETERIZATION TECHNOLOGIST Work Phone: Start: 05-31-2023 SARS-CoV-2, Influenz a & RSV [...] left arm Mamadou Gonzalez Appendectomy Jose Antonio Garza Work Phone: Appendectomy Mamadou Gonzalez Cholecystectomy Jose Antonio burgess Work Phone: Cholecystectomy Mamadou Gonzalez Hysterectomy Jose Antonio Garza Work Phone: Insertion of arterial stent Jose [...] - Td or Tdap) [facility] Start: 05-09-2024 End: 05-09-2024 Patient encounter procedure 05/09/2024 8:00 AM EDT Office Visit [facility] [address] [place] [id number] Amanuel Valladares, SHUTTLE SPOTTER-CARDIAC CATHETERIZATION TECHNOLOGIST [address] [place] [address] [facility] Start: 04-23-2024 End: 04-23-2024 Patient encounter procedure 04/23/2024 8:00 AM EDT Office Visit [facility] [address] [place] [id number] Amanuel Valladares, SHUTTLE SPOTTER-CARDIAC CATHETERIZATION TECHNOLOGIST [address] [place] [address] [facility] Start: 03-18-2024 Influenza vaccination Influenza Vaccine (Season Ended) [facility] Start: 05-31-2023 Plain chest X-ray XR chest 2V* [facility] Start: 05-31-2023 XR Chest 2 Views [facility] Start: 05-11-2023 FUV, Provider: Amanuel Davis, Status: Pen, Time: 8:00 AM FUV, Provider: Amanuel Davis, Status: Pen, Time: 8:00 AM [facility] 250 DO Work Phone: Start: 03-23-2023 FUV, Provider: Amanuel Davis, Status: Pen, Time: 9:00 AM FUV, Provider: Amanuel Davis, Status: Pen, Time: 9:00 AM [facility] 250 DO Work Phone: Start: 03-18-2023 Influenza vaccination Influenza Vaccine (#1) [facility] Start: 03-17-2022 FUV, Provider: Frandy Fung, Status: Pen, Time: 10:10 AM FUV, Provider: Frandy Fung, Status: Pen, Time: 10:10 [facility] Work Phone: Start: 02-22-2022 End: 02-22-2022 Patient encounter procedure Departed Clinical [facility] [address] Start: 12-17-2021 FUV, Provider: Frandy Fung, Status: Pen, Time: 9:50 AM FUV, Provider: Frandy Fung, Status: Pen, Time: 9:50 AM [facility] 250 DO Work Phone: Start: 11-22-2020 COVID-19 Vaccine (3 - Moderna risk series) COVID-19 Vaccine (3 - Moderna risk series) [facility] Start: 2006 Screening for malignant neoplasm of breast Mammogram [facility] Start: 1987 Screening for malignant neoplasm of cervix [facility] Start: 1985 Hepatitis B Vaccines (1 of 3 - 19+ 3-dose series) Hepatitis B Vaccines (1 of 3 - 19+ 3-dose series) [facility] Start: 1985 Zoster Vaccines (1 of 2) Zoster Vaccines (1 of 2) [facility] Start: 1984 Diabetes mellitus screening Diabetes Screening [facility] Start: 1984 Hepatitis C screening Hepatitis C Screening [facility] Start: 1972 Pneumococcal Vaccine: Pediatrics (0 to 5 Years) and At-Risk Patients (6 to 64 Years) (1 - PCV) Pneumococcal Vaccine: Pediatrics (0 to 5 Years) and At-Risk Patients (6 to 64 Years) (1 - PCV) [facility] Start: 1972 Pneumococcal Vaccine: Pediatrics (0 to 5 Years) and At-Risk Patients (6 to 64 Years) (1 of 2 - PCV) Pneumococcal Vaccine: Pediatrics (0 to 5 Years) and At-Risk Patients (6 to 64 Years) (1 of 2 - PCV) [facility] Start: 1967 MMR Vaccines (1 of 1 - Standard series) MMR Vaccines (1 of 1 - Standard series) [facility] Start: 1966 Hepatitis B Vaccines (1 of 3 - 3-dose series) Hepatitis B Vaccines (1 of 3 - 3-dose series) [facility] Start: 1966 HIV screening HIV Screening [facility] Start: 1966 Lipid panel Lipid Panel [facility] Start: 1966 Screening for malignant neoplasm of colon [facility] Start: 1966 Yearly Adult Physical Yearly Adult Physical [facility] ECG 12 Lead ECG 12 Lead ECG Routine Pre-operative clearance 11/10/2023 2:30 PM EDT [facility] Service Area Work Phone: Patient Education [facility] Work Phone: Patient referral [facility] Work Phone: Immunizations Immunization Date Immunization Notes Care Provider Shanta graham 05-10-2022 tetanus toxoid, redu lorena diphtheria toxoid, and acellular pertussis vaccine, adsorbed Mamadou Gonzalez [facility] 05-27-2021 influenza virus vaccine, unspecified formulation Jose Antonio M Hoy Work Phone: [facility] 250 DO Work Phone: 10-25-2020 Moderna COVID-19 Vaccine 100 MCG/0.5ML Intramuscular Suspension Jose Antonio M Hoy Work Phone: [facility] 250 DO Work Phone: 09-27-2020 Moderna COVID-19 Vaccine 100 MCG/0.5ML Intramuscular Suspension Jose Antonio M Hoy Work Phone: [facility] 250 DO Work Phone: 05-16-2020 influenza virus vaccine, unspecified formulation Jose Antonio M Hoy Work Phone: [facility] 250 DO Work Phone: 04-27-2020 influenza virus vaccine, unspecified formulation Jose Antonio M Hoy Work Phone: [facility] 250 DO Work Phone: 04-27-2020 influenza, seasonal, injectable Amanuel Valladares SHUTTLE SPOTTER-CARDIAC CATHETERIZATION TECHNOLOGIST Work Phone: [facility] Work Phone: 05-17-2019 influenza virus vaccine, unspecified formulation Jose Antonio M Hoy Work Phone: [facility] 250 DO Work Phone: 04-17-2018 influenza virus vaccine, unspecified formulation Jose Antonio M Hoy Work Phone: [facility] 250 DO Work Phone: 04-28-2016 influenza, injectabl e, quadrivalent, preservative free Jose Antonio M Hoy Work Phone: [facility] 250 DO Work Phone: 04-22-2016 influenza, seasonal, injectable MD Jose Antonio Garza Work Phone: [facility] 04-17-2016 influenza virus vaccine, unspecified formulation Jose Antonio Garza Work Phone: [facility] 250 DO Work Phone: 06-08-2014 tetanus toxoid, redu lorena diphtheria toxoid, and acellular pertussis vaccine, adsorbed Kyle Jakub II Other [facility] Other 06-01-2010 tetanus toxoid, redu lorena diphtheria toxoid, and acellular pertussis vaccine, adsorbed Mamadou Gonzalez [facility] Payers Date Payer Category Payer Unknown 1965 Unknown [id number] 1966 Unknown [id number] 1966 Unknown [id number] [id number] 1966 Unknown [id number] [id number] 1966 Unknown [id number] [id number] 1966 Unknown [id number] [id number] 1966 Unknown [id number] [id number] 1966 Unknown [id number] [id number] 1966 Unknown [id number] [id number] 1966 Unknown [id number] 2.16.840.1.485526.3.579.2.1259 1966 Unknown [id number] [id number] 1966 Unknown [id number] 2.16.840.1.325400.3.579.2.1244 1966 Unknown [id number] [id number] 1966 Unknown [id number] 2.16.840.1.441281.3.579.2.727 1966 Unknown [id number] [id number] 1959 Self-pay [id number] 1959 Unknown [id number] Unknown [id number] [id number] Unknown [id number] [id number] Unknown [id number] 2.16.840.1.580849.3.579.2.531 Unknown [id number] [id number] Unknown [id number] Worker's Compensation [employer] [id number] Social History Date Type Detail Facility Start: 05-11-2023 Caffeine use Caffeine use -[facility] 250 DO Work Phone: Comment on above: OCCASIONAL COFFEE; QUIT 1988 07/19 PPD; Start: 06-01-2021 End: 05-11-2023 Tobacco smoking status NHIS Never smoked tobacco (finding) [facility] Start: 1965 Sex Assigned At Female F [facility] Start: 05-11-2023 Sex Assigned At Female F [facility] Tobacco smoking status Never [facility] [place] Start: 05-11-2023 End: 11-10-2023 Tobacco use and exposure Smokeless tobacco non-user [facility] Work Phone: Start: 05-11-2023 End: 11-10-2023 Alcohol intake Current drinker of alcohol (finding) [facility] Work Phone: Start: 05-11-2023 Alcohol Comment social [facility] Work Phone: Start: 1965 Sex Assigned At Not on file [facility] Work Phone: Start: 05-01-2023 End: 11-10-2023 Exposure to SARS-CoV-2 (event) Not sure [facility] Start: 05-31-2023 End: 11-10-2023 Tobacco smoking status NHIS Ex-smoker (finding) [facility] History of tobacco use Current smoker [facility] Work Phone: History of tobacco use Cigarette Smoker [facility] Work Phone: Functional Status Date Assessment Result Facility 02-24-2023 Functional Status N/A [facility] 05-19-2022 Functional Status N/A [facility] Functional Status N/A [facility] Clinical Notes 02-16-2022 to 11-10-2023 Assessment & Plan Note - KADE Riggs - 11/10/2023 3:45 PM EDTAssessment & Plan Note - KADE Riggs - 11/10/2023 3:45 PM EDTPatient InstructionsPatient Instructions Note Date & Type Note Facility 11-10-2023 Evaluation + Plan note Associated Problem(s): Morbid obesity (Multi) Reviewed the merits of healthy lifestyle choices on overall cardiovascular health. [facility] Work Phone: 11-10-2023 Evaluation + Plan note Associated Problem(s): Hypertension Optimal in office [facility] Work Phone: 11-10-2023 Evaluation + Plan note Associated Problem(s): Non-ischemic cardiomyopathy (Multi) HF improved EF 64% December 2020 MUGA (08/2020 TTE EF 30%) FC II Stage C Remains on optimal GDMT [facility] Work Phone: 11-10-2023 Miscellaneous Notes Associated Problem(s): Morbid obesity (Multi) Reviewed the merits of healthy lifestyle choices on overall cardiovascular health. Associated Problem(s): Hypertension Optimal in office Associated Problem(s): Non-ischemic cardiomyopathy (Multi) HF improved EF 64% December 2020 MUGA (08/2020 TTE EF 30%) FC II Stage C Remains on optimal GDMT documented in this encounter [facility] Work Phone: 11-10-2023 History of Presen t illness Narrative Chief Complaint Doing good Reason for Visit Patient presents to the office today for outpatient follow-up for cardiac risk stratification. Last evaluated in clinic by myself April 2023. Presents today ambulatory with cane and steady gait. Accompanied by patient Patient denies any hospitalizations or significant changes to interval medical history since last office follow-up. History of Present Illness Patient presents to the office today without voiced cardiovascular complaints. Patient presents to [facility] to obtain cardiac risk stratification prior to a lumbar fusion. Surgeon: Dr. Alexander. Planned date: December 02, 2023 Patient presents to the office today with activity level > 4 METS. Daily activity includes: ADLs, housework, works full-time at [employer] Total DASI: 31.45 METs: 6.6 EKG in office: Normal sinus rhythm, nonspecific changes. No ischemia. ACC/AHA guidelines: 1. Major clinical markers: -Acute coronary syndrome or ND within 30 days: No -Decompensated heart failure: No -Significant arrhythmia: No -Severe valvular heart disease: No 2. Intermediate clinical markers -History of ischemic heart disease (prior ND, current chest pain secondary to ischemia, use of nitrates or EKG changes): No -Compensated/prior heart failure: Yes -Diabetes requiring insulin: No -Renal insufficiency with creatinine greater than 2: No 3. Minor clinical markers: -Age greater than or equal to 70: No -Abnormal EKG: No -Rhythm other than sinus rhythm: No -Low functional capacity: No -Prior CVA: No -Uncontrolled hypertension: No Surgery specific risk: Intermediate orthopedic procedure According to ACC/AHA guidelines, a patient with daily activity greater than 4 METS proceeding with intermediate surgical risk may proceed without additional cardiovascular testing. VARINDER Revised Cardiac Risk Index: Low risk 0.9% Mace Concomitant medication review: Currently on no antiplatelet or Antithrombin. Review of Systems Cardiovascular: Negative for chest pain, dyspnea on exertion, irregular heartbeat, leg swelling, near-syncope, orthopnea, palpitations, paroxysmal nocturnal dyspnea and syncope. Visit Vitals BP (!) 138/92 (BP Location: Right arm, Patient Position: Sitting) Pulse 69 Ht 1.549 m (5' 1 ) Wt 97.1 kg (214 lb) BMI 40.43 kg/m Smoking Status Former BSA 2.04 m Physical Exam Vitals and nursing note [...] and Affect: Mood normal. Behavior: Behavior normal. Allergies Allergen Reactions Bactrim [Sulfamethoxazole-Trimethoprim] Hives Enbrel [Etanercept] Unknown Methotrexate Unknown Current Outpatient Medications Medication Instructions carvedilol (COREG) 12.5 mg, oral, 2 times daily Entresto 49-51 mg tablet 1 tablet, oral, 2 times daily furosemide (LASIX) 40 mg, oral, Daily leflunomide (ARAVA) 20 mg, oral, Daily predniSONE (DELTASONE) 5 mg, oral, Daily PRN spironolactone (ALDACTONE) 25 mg, oral, Daily Assessment: Non-ischemic cardiomyopathy (Multi) HF improved EF 64% December 2020 MUGA (08/2020 TTE EF 30%) FC II Stage C Remains on optimal GDMT Hypertension Optimal in office Morbid obesity (Multi) Reviewed the merits of healthy lifestyle choices on overall cardiovascular health. Plan: At this time, there are no prohibitive cardiovascular risk to proceed with surgical procedure. Amanuel Valladares MSN, SHUTTLE SPOTTER-CARDIAC CATHETERIZATION TECHNOLOGIST, PMHNP-BC [facility] Please excuse any errors in grammar or translation related to this dictation. Voice recognition software was utilized to prepare this document. documented in this encounter [facility] Work Phone: 11-10-2023 Instructions KADE Riggs - 11/10/2023 2:30 PM EDT Please bring all medicines, vitamins, and [...] clinically warranted and to continue without modifications. 2. Return for follow-up; in the interim, contact the office if new symptoms arise. As scheduled documented in this encounter [facility] Work Phone: 05-11-2023 Evaluation + Plan note Associated Problem(s): SOB (shortness of breath) on exertion No evidence of volume overload Minimal complaints mostly due to deconditioning [facility] Work Phone: 05-11-2023 Miscellaneous Notes Associated Problem(s): [...] documented in this encounter [facility] Work Phone: 05-11-2023 Evaluation + Plan note Associated Problem(s): Hypertension Optimal in office [facility] Work Phone: 05-11-2023 Evaluation + Plan note Associated Problem(s): Non-ischemic cardiomyopathy (CMS/HCC) HF improved EF 64% December 2020 MUGA (08/2020 TTE EF 30%) FC II Stage C Remains on optimal GDMT [facility] Work Phone: 05-11-2023 Evaluation + Plan note Associated Problem(s): Morbid obesity (CMS/HCC) Reviewed the merits of healthy lifestyle choices on overall cardiovascular health. [facility] Work Phone: 05-11-2023 Evaluation + Plan note Associated Problem(s): Sleep apnea Remains compliant with CPAP [facility] Work Phone: 05-11-2023 Evaluation + Plan note Associated Problem(s): Cardiac and Vasculature 2017 Cardiac cath angiographically normal coronaries: EF 40% [facility] Work Phone: 05-11-2023 History of Presen t [...] She is able to walk into the [employer] [facility] without any complaints. She is actively working on weight loss. 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 Denies any change [...] contact the office if new symptoms arise. GENERATOR REPAIRER annual follow-up Current treatment plan is effective, no change in therapy. Reviewed diet, exercise and weight control. Reviewed medications and side effects in detail. Amanuel Valladares MSN, SHUTTLE SPOTTER-CARDIAC CATHETERIZATION TECHNOLOGIST, PMHNP-BC [facility] Please excuse any errors in grammar or translation related to this dictation. Voice recognition software was utilized to prepare this document. documented in this encounter [facility] Work Phone: 05-11-2023 Instructions KADE Riggs - [...] contact the office if new symptoms arise. GENERATOR REPAIRER annual follow-up documented in this encounter [facility] Work Phone: 02-24-2023 Hospital Discharg e instructions [...] Follow these instructions at home: Medicines Take ibsk-xrp-epskonn and prescription medicines only as told by [...] and water are not available, use hand desk clerk. Check your abscess every day for signs [...] provider. Document Revised: 04/12/2022 Document Reviewed: 04/12/2022 [employer] Patient Education 2022 [employer]. 02/24/2023 13:18:12 Cellulitis, Adult Cellulitis, Adult Cellulitis [...] Follow these instructions at home: Medicines Take drge-sgc-mcgbzaw and prescription medicines only as told by [...] such as antibiotic medicines or antihistamines. Take stph-tvq-xlkidvl and prescription medicines only as told by [...] provider. Document Revised: 04/15/2022 Document Reviewed: 04/15/2022 [employer] Patient Education 2022 [employer]. Follow Up Care 02/24/2023 11:55:51 With:Jose Antonio Garza Address: [address] [place], [place] [id number] Business (1) When:02/27/2023 13:03:40 [facility] 02-24-2023 Evaluation + Plan note Extrac edd from: Title:ED Note Author:Rodrick Mobley PA-C te:02/24/23 Abscess (L02.91: Cutaneous a bscess, unspecified) Cellulitis (L03.90: Cellulitis, unspecified) Orders: cephalexin, 500 mg = 1 cap(s), Oral, TID, Take one capsule by mouth three times a day for ten days, # 30 cap(s), Refills(s) 0, Pharmacy: [facility], 155, cm, 02/24/23 12:00:00 EDT, Height/Length Dosing, 108.2, kg, 02/24/23 12:00:00 EDT, Weight Dosing doxycycline, 100 mg = 1 tab(s), Oral, BID, X 10 day(s), # 20 tab(s), Refills(s) 0, [facility], [facility], cm, 02/24/23 12:00:00 EDT, Height/Length Dosing, 108.2, kg, 02/24/23 12:00:00 EDT, [facility] Evaluation note* Encounter Date Diagnosis Assessment Notes Treatment Notes Treatment Clinical Notes November, Lumbosacral radiculopathy (ICD-10 - M54.17) IrReviewed x-ray of the pelvis from 09/29/2022 and which shows healing pubic [place] fractures. Upon examination noted right SI joint [...] continue with current prescriptions and will get bhfm-swt-hfmpcep Thermo patches. Follow-up in 6 weeks. Medical [...] Z13.31) PHQ reviewed score 0 negative screening [facility] 03-15-2023 Evaluation note* Encounter Date Diagnosis [...] with me on a as needed basis. [facility] 01-13-2023 Evaluation note* Encounter Date Diagnosis [...] right lower extremity. Recommended continued Tylenol and dmrd-kus-lbxfazi anti-inflammatory use. Also recommended continued calcium and vitamin D supplementation which she has already been doing. I will plan to check back with her in about 8 weeks with repeat AP pelvis, inlet, outlet views to check on the healing progress. [facility] Other 12-21-2022 Evaluation note* Encounter Date Diagnosis [...] work until we get these MRI results. [facility] Other 10-24-2022 Evaluation + Plan noteExtracted from: Title:ED Note Author:Mamadou Gnozalez DO Date: Finger laceration (S61.219A: Laceration without foreign body of unspecified finger without damage to nail, initial encounter) Orders: tetanus/diphtheria/pertussis, acel (Tdap), 0.5 mL, Injection, Intramuscular-Immunization, Once, Stop date 05/10/22 9:16:00 EDT, STAT, Start date 05/10/22 9:16:00 EDT [facility]10-24-2022 Hospital Discharge instructions Follow Up Care 05/10/2022 09:04:11 With:Jose Antonio Kayla Address: [address] [place] [id number] Business (1) When:Within 3 Day(s) [facility]08-02-2022 NotePROCEDURE: XR HIPS HEATH 5V W PELVIS [...] by: JOSÉ MIGUEL SERNA Date: 2022-02-16 06:14[facility] Future Appointments Appointment Date:05/25/2022 02:40:00 PM Scheduled Provider:Jose Carlos SALCEDO MD Location:[facility] Appointment Type: Established 15 Diagnostic Tests Pending * Wound Culture 05/19/22 General Surgery [place] Evaluation noteNo assessment information available [facility] Work Phone: Evaluation noteNo InformationNortKindred Healthcare [facility] Other Evaluation note* Diagnosis Non-ischemic cardiomyopathy (CMS/HCC)- Primary Other primary cardiomyopathies Primary hypertension Unspecified essential hypertension Obstructive sleep apnea syndrome Obstructive sleep apnea (adult) (pediatric) Morbid obesity (CMS/HCC) Morbid obesity Hypertension, unspecified type SOB (shortness of breath) on exertion Shortness of breath documented in this encounter [facility] Work Phone: Evaluation note* Diagnosis Pre-operative clearance- Primary Unspecified pre-operative examination Non-ischemic cardiomyopathy (Multi) Other primary cardiomyopathies Primary hypertension Unspecified essential hypertension Morbid obesity (Multi) Morbid obesity documented in this encounter [facility] Work Phone: History general Narrative - Reported* Type Description Date Medical History RA Surgical History hysterectomy Surgical History cholecystectomy Surgical History appendectomy Surgical History left foot surgery [facility] Other Hisejfq general Narrative - Reported* Type Description Date Medical History RA Surgical History hysterectomy Surgical History cholecystectomy Surgical History appendectomy Surgical History left foot surgery Hospitalization History see surg HX [facility] Other Hospital course Narrative No data available for this section [facility] No data available for this section [facility] [place] Progress note No data available for this section [facility] Consultation (Routine) - Authorized Specialty Diagnoses / Procedures Referred By Contjean pierre t Referred To Contact Cardiology Diagnoses Non-ischemic cardiomyopathy (CMS/HCC) Primary hypertension Obstructive sleep apnea syndrome Procedures Follow Up In Cardiology Amanuel Valladares APRN-CNP [address] [facility] [address] [place] [address] Referral ID Status Reason Start Date Expiration Date V isits Requested Visits Authorized [id number] Authorized 05/11/2023 05/10/2024 1 1 [facility] Work Phone: Summary Purpose Family History No [...] on: Mother(V17.49, Z82.49) Status:Active FH: diabetes mellitus: Analisa arias(V18.0, Z83.3) Status:Active Unknown Family Member Name Dates Details Heart problem: Mother Status:Active Family history of hypertensi on: Mother(V17.49, Z82.49) Status:Active FH: diabetes mellitus: Analisa r(V18.0, Z83.3) Status:Active Advance Directives No Advanced [...] year with nurse practitioner Reason for Referral Specialty Diagnoses / Procedures Referred By Reema rodriguez Referred To Contact Diagnoses Pre-operative clearance Procedures ECG 12 Lead Amanuel Valladares, SHUTTLE SPOTTER-CARDIAC CATHETERIZATION TECHNOLOGIST [address] [facility] [address] [place] [address] Referral ID Status Reason Start Date Expiration Date V isits Requested Visits Authorized [id number] Authorized 11/10/2023 11/09/2024 1 1 Reason Aqua therapy - evalu ate and treat Diagnosis 1 Lumbosacral radiculo vanessa (M54.17) Referral Organization [facility] Referring Provider First Name Nancy Referring Provider Last Name Kapadia Referring Provider Specialty Nurse Pract itioner Referred Organization [facility] Referred Address [address] [place], [place],[address] Referred Provider Specialty Physical The rapist Referral Priority Routine Reason evaluate for Si inje ction Diagnosis 1 Lumbosacral radiculo vanessa (M54.17) Referral Organization [facility] Referring Provider First Name Nancy Referring Provider Last Name Kapadia Referring Provider Specialty Nurse Pract itioner Referred Organization [facility] Pain [facility]agemen t Referred Provider Maxi Glez Referred Address [address] [address] ,[place], [place],[address] Referred Provider Specialty Pain Medicin e Referral Priority Routine Additional Source Comments INFORMATION SOURCE (unrecogn ized section and content) DATE CREATED AUTHOR 01/11/2018 [facility] DATE CREATED AUTHOR AUTHOR'S ORGANIZ ATION 08/11/2018 [facility] DATE CREATED AUTHOR AUTHOR'S ORGANIZ ATION 10/20/2018 [facility] DATE CREATED AUTHOR AUTHOR'S ORGANIZ ATION 10/21/2018 [facility] DATE CREATED AUTHOR AUTHOR'S ORGANIZ ATION 01/28/2021 [facility] DATE CREATED AUTHOR AUTHOR'S ORGANIZ ATION 03/19/2022 [facility] DATE CREATED AUTHOR AUTHOR'S ORGANIZ ATION 11/19/2022 [facility] pital DATE CREATED AUTHOR AUTHOR'S ORGANIZ ATION 08/01/2023 [facility] EPIC DATE CREATED AUTHOR AUTHOR'S ORGANIZ ATION 10/07/2023 [facility] DATE CREATED AUTHOR AUTHOR'S ORGANIZ ATION 11/12/2023 [facility] DATE CREATED AUTHOR AUTHOR'S ORGANIZ ATION 11/24/2023 [facility] Care Teams (unrecognized sec tion and content) Team Status: Inactive Member Role Status Dates Jose Antonio Garza MD Primary Care Provider Active Kyle Calderon MD Attending Provider Active Team Status: Active Member Role Status Dates Jose Antonio Garza MD Primary Care Provider Active Team Status: Inactive Member Role Status Dates Jose Antonio Garza MD Primary Care Provider Active aNrayan Bridges APRN Emergency Provider Active Team Status: Inactive Member Role Status Dates Jose Antonio Garza MD Primary Care Provider Active Kyle Call II, MD Attending Provider Active Administrative Processor Relationship Specialty Start Date End Date Jose Antonio Garza MD [address] [phone] PCP - General 09/04/20 Team Status: Inactive Member Role Status Dates Jose Antonio Garza MD Primary Care Provider Active Stef Molina Jr, MD Emergency Provider Active Administrative Processor Relationship Specialty Start Date End Date Jose Antonio Garza MD [address] [place] [address] PCP - General 09/04/20 Goals (unrecognized section and content) Goals may [...] and content) Reason Comments Follow-up Overdue rx Reason Comments Procedure 5-17 LUMBAR DECOMPRE SSION AMIRA Specialty Diagnoses / Procedures Referred By Contac t Referred To Contact Diagnoses Pre-operative clearance Procedures ECG 12 Lead Amaunel Valladares, SHUTTLE SPOTTER-CARDIAC CATHETERIZATION TECHNOLOGIST [address] [facility] [address], [address] [address] Referral ID Status Reason Start Date Expiration Date V isits Requested Visits Authorized [id number] Authorized 11/10/2023 11/09/2024 1 1 FOR RECORDS PERTAINING TO PATIENTS WHO ARE [...] BE BASED ON THE PRIMARY CLINICAL RECORDS. [facility]. provides no warranty or guarantee of the accuracy or completeness of information in this document.
[2023-12-03] MEDS: ONDANSETRON PF 4 MG/2 ML VIAL IV (17:55)
[2023-12-03 17:59] LABS: Glucometer 155 mg/dL (74-106)
[2023-12-03] MEDS: PROMETHAZINE HCL 25 MG/ML VIAL IM (18:19)
--- NOTE | 2023-12-03 18:35 | PC.NURSE ---
Juana EASTMAN called back, updated that BP still 172, instructed nurse to have her lay flat for the rest of the night. Will see her tomorrow. Continue to monitor and lower BP
[2023-12-04] VITALS (7 sets, daily range): BP systolic 133–173; BP diastolic 60–91; PULSE 67–80; TEMP 36.6–37.4; O2SAT 92–93
[2023-12-04 04:45] LABS: Anion Gap 7.8; BUN Creatinine Ratio 17.6; Calcium 8.8 mg/dL (8.5-10.1); Carbon Dioxide 30.6 mmol/L (21.0-32.0); Chloride 105 mmol/L (98-107); Estimated GFR (African America >60 (>=60); Estimated GFR (Non-African Ame >60 (>=60); Glucose 112 mg/dL (74-106); Potassium 3.4 mmol/L (3.5-5.1); Sodium 140 mmol/L (136-145)
[2023-12-04] MEDS: CARVEDILOL 12.5 MG TABLET PO ×2 (04:56→16:17)
--- NOTE | 2023-12-04 08:33 | P.PN_ITS ---
Progress Note: Subjective Subjective Interval history: headache from day is gone. Was put overnight on flat bedrest. Blood pressure up slightly this morning but improved after morning medications Exam Constitutional Vital Signs, click to edit/add: Last Vital Signs Temp 97.8 F 12/04/23 07:37 Pulse 73 12/04/23 07:37 Resp 18 12/04/23 07:37 BP 134/82 12/04/23 08:04 Pulse Ox 93 L 12/04/23 07:37 O2 Del Method Room Air 12/04/23 07:37 O2 Flow Rate 8 12/02/23 15:32 Documenting provider has reviewed patient's vital signs: yes Common normals: no apparent distress Chest Common normals: inspection of chest normal Respiratory Common normals: normal respiratory effort, no retractions and clear to auscultation bilaterally Cardio Common normals: regular rate, regular rhythm and no murmurs Back & Pelvis Other: Deferred to surgery Progress Note: Objective Labs Labs: BMP 12/04/23 04:06 Sodium 140 Potassium 3.4 L Chloride 105 Carbon Dioxide 30.6 BUN 13.0 Creatinine 0.74 Glucose 112 H Calcium 8.8 Progress Note: A&P Assessment and Plan (1) Rheumatoid arthritis: (2) Lumbar radiculopathy: Plan Lumbar radiculopathy, status post surgical intervention-plan for surgery from a pain control standpoint. Pain is improved from prior to surgery-had headache but was upright yesterday. Will see what plan from neurosurgery is today. Hypertension with a history of hypertensive emergency-better this morning. Cont inue to monitor, continue home medications-overall I would say is improved. Iron deficiency anemia-we will monitor as an outpatient Hyperglycemia-continue to monitor Rheumatoid arthritis-continue with home medications Admission status: Although patient's pain is improved, not to the point that she can ambulate safely. Medically necessary treatment will span 2 midnights. Changed to inpatient status yesterday. See what neurosurgery prefers. Medically overall is stable the patient has not been upright yet. If improved later today with no increase in headache and significant change in blood pressure, would suspect possible discharge
[2023-12-04] MEDS: SACUBITRIL/VALSARTAN 24 MG-26 MG TABLET 2 TAB PO ×2 (09:17→20:58)
[2023-12-04] MEDS: POTASSIUM CHLORIDE 10 MEQ ER TABLET 20 MEQ PO ×2 (09:17→20:58)
[2023-12-04] MEDS: SENNOSIDES/DOCUSATE SODIUM 1 TAB TABLET PO ×2 (09:18→20:58)
[2023-12-04] MEDS: LEFLUNOMIDE 20 MG TABLET PO (09:18)
[2023-12-04] MEDS: FUROSEMIDE 40 MG TABLET PO (09:18)
[2023-12-04] MEDS: SPIRONOLACTONE 25 MG TABLET PO (09:19)
[2023-12-04] MEDS: POLYETHYLENE GLYCOL 3350 17 GM POWDER PACKET PO (09:19)
[2023-12-04] MEDS: BISACODYL 5 MG TABLET PO (09:19)
[2023-12-04] MEDS: OXYCODONE HCL 5 MG TABLET PO (09:20)
[2023-12-04] MEDS: ONDANSETRON PF 4 MG/2 ML VIAL IV (10:39)
--- NOTE | 2023-12-04 11:06 | PC.NURSE ---
Pt states headache returned at 1030. Nausea and scant vomiting noted. Zofran 4mgIV given. RAIZA Arias in to see pt. She notified RAIZA Weber, and orders given to keep pt flat, and release compression to both hemovacs. VS 160/91-67-20-93% 97.9
[2023-12-04] MEDS: ACETAMINOPHEN 500 MG TABLET 1000 MG PO (16:16)
[2023-12-05 03:21] VITALS: BP 147/82; PULSE 82; TEMP 36.8; O2SAT 91
[2023-12-05] MEDS: CARVEDILOL 12.5 MG TABLET PO ×2 (05:42→08:19)
[2023-12-05 05:43] VITALS: BP 162/90
[2023-12-05 08:00] VITALS: BP 135/81; PULSE 84; TEMP 36.7; O2SAT 91
[2023-12-05 08:03] LABS: Basophils Absolute Auto 0.1 10^3/uL (0.0-0.1); Eosinophils Absolute Auto 0.2 10^3/uL (0.0-0.7); Eosinophils Percent Auto 2.2 % (0.9-7.0); Hematocrit 35.2 % (36.0-48.0); Hemoglobin 11.5 g/dL (12.0-16.0); Immature Granulocytes Abs Auto 0.04 10^3/uL (0.00-0.03); Immature Granulocytes Pct Auto 0.4 % (0.0-0.5); Lymphocytes Absolute Auto 1.5 10^3/uL (1.2-3.8); Lymphocytes Percent Auto 16.2 % (20.5-60.0); Mean Corpuscular HGB Conc 32.7 g/dL (29.9-35.2); Mean Corpuscular Hemoglobin 30.7 pg (26.7-34.0); Mean Corpuscular Volume 93.9 fL (81.0-99.0); Monocytes Absolute Auto 0.7 10^3/uL (0.3-0.8); Monocytes Percent Auto 7.7 % (1.7-12.0); Neutrophils Absolute Auto 6.7 10^3/uL (1.4-6.5); Neutrophils Percent Auto 72.5 % (43.0-75.0); Platelet Count 188 10^3/uL (150-450); Red Blood Count 3.75 10^6/uL (4.20-5.40); Red Cell Distribution Width 12.8 % (11.0-15.0); White Blood Count 9.2 10^3/uL (4.0-11.0)
[2023-12-05] MEDS: CYCLOBENZAPRINE HCL 10 MG TABLET PO (08:13)
[2023-12-05 08:14] VITALS: BP 135/81
[2023-12-05] MEDS: SPIRONOLACTONE 25 MG TABLET PO (08:14)
[2023-12-05] MEDS: BISACODYL 5 MG TABLET PO (08:14)
[2023-12-05] MEDS: SACUBITRIL/VALSARTAN 24 MG-26 MG TABLET 2 TAB PO (08:14)
[2023-12-05] MEDS: LEFLUNOMIDE 20 MG TABLET PO (08:15)
[2023-12-05] MEDS: SENNOSIDES/DOCUSATE SODIUM 1 TAB TABLET PO (08:15)
[2023-12-05] MEDS: POTASSIUM CHLORIDE 10 MEQ ER TABLET 20 MEQ PO (08:15)
[2023-12-05] MEDS: POLYETHYLENE GLYCOL 3350 17 GM POWDER PACKET PO (08:15)
[2023-12-05] MEDS: FUROSEMIDE 40 MG TABLET PO (08:15)
[2023-12-05] MEDS: ACETAMINOPHEN 500 MG TABLET 1000 MG PO (08:19)
[2023-12-05 08:32] LABS: Anion Gap 10.1; BUN Creatinine Ratio 20.3; Calcium 9.5 mg/dL (8.5-10.1); Chloride 103 mmol/L (98-107); Estimated GFR (African America >60 (>=60); Estimated GFR (Non-African Ame >60 (>=60); Glucose 109 mg/dL (74-106); Potassium 4.1 mmol/L (3.5-5.1); Sodium 141 mmol/L (136-145)
--- NOTE | 2023-12-05 08:39 | PC.NURSE ---
RAIZA Arias notified keno writer / runner that patient is now able to get out of bed. If patient experiences any headaches we are to contact her. She wants patient to ambulate and make sure she has no headaches. Plan is to remove drains and discharge this evening.
--- NOTE | 2023-12-05 08:46 | PM.PN ---
Progress Note: Subjective Subjective Interval history: headache from day is gone. Was put overnight on flat bedrest. Blood pressure up slightly this morning but improved after morning medications Exam Constitutional Vital Signs, click to edit/add: Last Vital Signs Temp 98.0 F 12/05/23 08:00 Pulse 84 12/05/23 08:00 Resp 16 12/05/23 08:00 BP 135/81 12/05/23 08:14 Pulse Ox 91 L 12/05/23 08:00 O2 Del Method Room Air 12/05/23 08:00 O2 Flow Rate 8 12/02/23 15:32 Progress Note: Objective Labs Labs: Short CBC 12/05/23 Range/Units 07:57 WBC 9.2 (4.0-11.0) 10^3/uL Hgb 11.5 L (12.0-16.0) g/dL Hct 35.2 L (36.0-48.0) % Plt Count 188 (150-450) 10^3/uL BMP 12/05/23 07:57 Sodium 141 Potassium 4.1 Chloride 103 Carbon Dioxide 32.0 BUN 15.0 Creatinine 0.74 Glucose 109 H Calcium 9.5 Progress Note: A&P Assessment and Plan (1) Rheumatoid arthritis: (2) Lumbar radiculopathy:
--- NOTE | 2023-12-05 09:25 | CM.NOTE ---
Rounds made with Dr. Garza, discussed with pt about trying to get up and move around this AM to see if headache returns. Pt denies any pain at this time. Possible discharge to home this afternoon. Pt does still have bilat drains intact from prior surgery. Case Management of SW will follow for possible need of HH services at discharge if drains are not removed. Pt verbalizes she would only need HH services if she would have to keep the drain's in at discharge.
--- NOTE | 2023-12-05 09:38 | P.DS_ITS ---
DS: Providers Provider Date of admission: 12/02/23 15:40 Primary care physician: Ti Garza MD Consults: 12/02/23 15:32 Consult to Hospitalist Routine Consulting Provider: Hospitalist Reason for consultation: postop care Has provider been notified: Yes Consult to Tar Heat Exchanger Cleaner Routine Reason for consult:: Home Health Occupational Therapy Eval and Treat Routine Reason for consultation: s/p lumbar fusion Has provider been notified: No Physical Therapy Eval and Treat Routine Reason for consultation: s/p lumbar fusion Has provider been notified: No DS: Diagnosis Discharge Diagnosis (1) Rheumatoid arthritis: (2) Lumbar radiculopathy: Plan Lumbar radiculopathy, status post surgical intervention-stable at the time of discharge Hypertension with a history of hypertensive emergency-elevated the morning of discharge medications adjusted Iron deficiency anemia-stable at the time of discharge Hyperglycemia-stable at the time of discharge Rheumatoid arthritis-continue with home medications InPt Admission status: Although patient's pain is improved, not to the point that she can ambulate safely. Medically necessary treatment will span 2 midnights. Changed to inpatient status yesterday. See what neurosurgery prefers. Medically overall is stable the patient has not been upright yet. If improved later today with no increase in headache and significant change in blood pressure, would suspect possible discharge ? DS: Summary Hospital Course Hospital Course: Patient was admitted for lumbar radiculopathy and surgical intervention. That was completed on the day of admission. The following day she had an episode of significant nausea and severe headache. Blood pressure also elevated at that time. Patient was placed on strict supine bedrest. Her headache resolved blood pressure improved but still somewhat elevated the following day. As needed doses of IV hydralazine were ordered. On the morning of discharge, patient Having complaints of headache this morning. Blood pressure still somewhat elevated and Coreg will be adjusted. 25 mg p.o. twice daily. PA discussed care with surgeon. Drains will be removed later today. If she has no further headache and blood pressure stable she can be discharged home in improving condition. Medication status. Follow-up with me in the office later this week for blood pressure control. Follow-up with surgery per protocol Time Spent with Patient Time attestation: Total time spent providing and/or coordinating discharge services: Exam Constitutional Vital Signs, click to edit/add: Last Vital Signs Temp 98.0 F 12/05/23 08:00 Pulse 84 12/05/23 08:00 Resp 16 12/05/23 08:46 BP 135/81 12/05/23 08:14 Pulse Ox 91 L 12/05/23 08:00 O2 Del Method Room Air 12/05/23 08:00 O2 Flow Rate 8 12/02/23 15:32 Documenting provider has reviewed patient's vital signs: yes Common normals: no apparent distress Chest Common normals: inspection of chest normal Respiratory Common normals: normal respiratory effort, no retractions and clear to auscultation bilaterally Cardio Common normals: regular rate, regular rhythm and no murmurs Back & Pelvis Other: Deferred to surgery DS: Data Data Completed and Pending Labs on day of discharge: Labs from last 24 hours 12/05/23 07:57 WBC 9.2 RBC 3.75 L Hgb 11.5 L Hct 35.2 L MCV 93.9 MCH 30.7 MCHC 32.7 RDW 12.8 Plt Count 188 MPV 10.0 Neut % (Auto) 72.5 Lymph % (Auto) 16.2 L Wilcox % (Auto) 7.7 Eos % (Auto) 2.2 Baso % (Auto) 1.0 Neut # (Auto) 6.7 H Lymph # (Auto) 1.5 Wilcox # (Auto) 0.7 Eos # (Auto) 0.2 Baso # (Auto) 0.1 Abs Immat Gran (auto) 0.04 H Imm/Tot Granulo (auto) 0.4 Sodium 141 Potassium 4.1 Chloride 103 Carbon Dioxide 32.0 Anion Gap 10.1 BUN 15.0 Creatinine 0.74 Est GFR ( Amer) >60 Est GFR (Non-Af Amer) >60 BUN/Creatinine Ratio 20.3 Glucose 109 H Calcium 9.5 Discharge Plan Discharge Disposition: Home, Self-Care Discharge Medications: New carvedilol 25 mg Tablet 25 mg PO Q12H Qty: 60 11RF Continued furosemide 40 mg tablet 40 mg PO DAILY Entresto 49-51 mg tablet 1 tab PO BID tizanidine 4 mg tablet 8 mg PO .hs PRN (Reason: muscles cramps) leflunomide 20 mg tablet 20 mg PO DAILY spironolactone 25 mg tablet 25 mg PO DAILY Discontinued carvedilol 12.5 mg tablet 12.5 mg PO Q12H Print Language: Ecuadorean Forms: Portal Instructions
--- NOTE | 2023-12-05 09:56 | CM.NOTE ---
Discussed with RN regarding plan for pt's drains. Pt will have bilat drain's removed prior to discharge. Discussed with pt discharge needs, pt denies any needs at this time. Pt is ambulatory will walker at home. Pt states our home is very small, not far to walk. Pt is able to do ADL's and has been up ambulatory in room.
[2023-12-05 12:00] VITALS: BP 107/69; PULSE 98; TEMP 36.8; O2SAT 92
--- NOTE | 2023-12-07 14:44 | CM.DCFOLLOWU ---
Person spoke with: patient How are you feeling? well How is your pain? better Did you understand your discharge instructions? yes Do you have any questions about your discharge instructions? no Were you given any prescriptions at discharge? yes Were you able to get your prescriptions filled? Pt was not aware she had a prescription, Advised she does and the medication and the pharmacy it was sent to Do you understand how to take your medications as ordered? yes Do you have any questions about your follow up appointment and do you plan to keep your follow up appointment? no questions, will schedule follow up Is there anything else that you would like to discuss? no Questions/Comments/Concerns/Other: N/A
== END 2023-12-05 15:05 | disposition home or self-care (01) | DRG 460 ==
LOC: MS 15:40
PROVIDERS: Admitting Provider Orthopaedic Surgery Orthopaedic Surgery of the Spine; PCP Family Medicine; Visit Provider Family Medicine
PROC: 0SG0071 Fusion of Lumbar Vertebral Joint with Autologous Tissue Substitute, Posterior Approach, Posterior Column, Open Approach (ICD-10-PCS; principal; 2023-12-02 11:10)
DX: M43.16 Spondylolisthesis, lumbar region (principal); Z68.41 Body mass index [BMI] 40.0-44.9, adult; I50.42 Chronic combined systolic (congestive) and diastolic (congestive) heart failure; I42.9 Cardiomyopathy, unspecified; G97.41 Accidental puncture or laceration of dura during a procedure; Y83.8 Other surgical procedures as the cause of abnormal reaction of the patient, or of later complication, without mention of misadventure at the time of the procedure; M48.061 Spinal stenosis, lumbar region without neurogenic claudication; M54.16 Radiculopathy, lumbar region; Z79.899 Other long term (current) drug therapy; I11.0 Hypertensive heart disease with heart failure; E66.3 Overweight; D50.9 Iron deficiency anemia, unspecified; R73.9 Hyperglycemia, unspecified; M06.9 Rheumatoid arthritis, unspecified; G47.33 Obstructive sleep apnea (adult) (pediatric); Z88.1 Allergy status to other antibiotic agents; Z88.8 Allergy status to other drugs, medicaments and biological substances
CPT/HCPCS: 36415; 76000; 80048; 82948; 85014; 85018; 85025; 95861; 95938; 95940; 96365; 96372; 96375; 96376; 97161; 97165; C1713; J1094; J1170; J2704; J3370

== ENCOUNTER 2023-12-09 08:50 | Emergency (ER) | payer BC, SELFPAY ==
[2023-12-09 09:05] VITALS: BP 136/78; PULSE 80; TEMP 36.7; O2SAT 98; BMI 41.6
--- NOTE | 2023-12-09 09:45 | ED.GENADUL1 ---
HPI HPI - General Adult General Chief complaint: Headache Stated complaint: HEADACHE Time Seen by Provider: 12/09/23 09:12 Source: patient Mode of arrival: walk-in History of Present Illness HPI narrative: 58-year-old female presents for headache. It is a generalized headache and it started about 3:00 in the morning when she was in bed. No trauma fever or stiff neck. She is postop day #7 from lumbar fusion surgery and she was told to go to the emergency department if she developed a headache. Her back is not hurting. Related Data Home Medications ?Medication ?Instructions ?Recorded ?Confirmed furosemide 40 mg tablet 40 mg PO DAILY 12/19/22 12/09/23 sacubitril 49 mg-valsartan 51 mg 1 tab PO BID 12/19/22 12/09/23 tablet (Entresto) tizanidine 4 mg tablet 8 mg PO .hs PRN muscles cramps 12/19/22 12/09/23 leflunomide 20 mg tablet 20 mg PO DAILY 11/22/23 12/09/23 spironolactone 25 mg tablet 25 mg PO DAILY 11/22/23 12/09/23 Previous Rx's ?Medication ?Instructions ?Recorded carvedilol 25 mg tablet 25 mg PO Q12H #60 tabs 12/05/23 hydrocodone 5 mg-acetaminophen 325 1 tab PO Q6H PRN pain 5 days #20 12/09/23 mg tablet tabs Allergies Allergy/AdvReac Type Severity Reaction Status Date / Time clobetasol [From Embeline] Allergy Severe shortness Verified 12/09/23 09:10 of breath sulfamethoxazole Allergy Severe Hives Verified 12/09/23 09:10 [From Bactrim] trimethoprim [From Bactrim] Allergy Severe Hives Verified 12/09/23 09:10 etanercept [From Enbrel] Allergy CHF Verified 12/09/23 09:10 methotrexate Allergy CHF Verified 12/09/23 09:10 Opioid HPI Opioid Management Most Recent Opioid Data: Last Pain Scale 4 12/09/23 09:57 Last Pain Assessment 12/05/23 15:00 Last MAR Pain Assessment 12/09/23 09:57 Last ORT Total Score 1 12/02/23 15:40 Last ORT Risk Category Low Risk 12/02/23 15:40 Review of Systems ROS Narrative A ten point review of systems is negative except as noted above. [facility] Medical History (Updated 12/09/23 @ 12:23 by Eduardo Sahu MD) History of blood transfusion ?Z92.89 - Personal history of other medical treatment (ICD-10) Heartburn ?R12 - Heartburn (ICD-10) Pelvis fracture ?S32.9XXA - Fracture of unspecified parts of lumbosacral spine and pelvis, initial encounter for closed fracture (ICD-10) Rheumatoid arthritis ?M06.9 - Rheumatoid arthritis, unspecified (ICD-10) Arthritis ?M19.90 - Unspecified osteoarthritis, unspecified site (ICD-10) Plantar fasciitis ?M72.2 - Plantar fascial fibromatosis (ICD-10) Fibroma ?D21.9 - Benign neoplasm of connective and other soft tissue, unspecified (ICD-10) Vertigo ?R42 - Dizziness and giddiness (ICD-10) Diverticulosis ?K57.90 - Diverticulosis of intestine, part unspecified, without perforation or abscess without bleeding (ICD-10) Chronic combined systolic and diastolic heart failure ?I50.42 - Chronic combined systolic (congestive) and diastolic (congestive) heart failure (ICD-10) Snoring ?R06.83 - Snoring (ICD-10) Cardiomyopathy ?I42.9 - Cardiomyopathy, unspecified (ICD-10) Sleep apnea ?G47.30 - Sleep apnea, unspecified (ICD-10) Calcaneal fracture ?S92.009A - Unspecified fracture of unspecified calcaneus, initial encounter for closed fracture (ICD-10) Foot pain ?M79.673 - Pain in unspecified foot (ICD-10) Achilles tendinitis ?M76.60 - Achilles tendinitis, unspecified leg (ICD-10) Left ventricular systolic dysfunction ?I51.9 - Heart disease, unspecified (ICD-10) Tinea pedis ?B35.3 - Tinea pedis (ICD-10) Hematuria ?R31.9 - Hematuria, unspecified (ICD-10) Flank pain ?R10.9 - Unspecified abdominal pain (ICD-10) Postherpetic polyneuropathy ?B02.23 - Postherpetic polyneuropathy (ICD-10) Abdominal pain ?R10.9 - Unspecified abdominal pain (ICD-10) Epigastric pain ?R10.13 - Epigastric pain (ICD-10) Eczema ?L30.9 - Dermatitis, unspecified (ICD-10) Wrist pain ?M25.539 - Pain in unspecified wrist (ICD-10) Lumbar radiculopathy ?M54.16 - Radiculopathy, lumbar region (ICD-10) Diverticulitis ?K57.92 - Diverticulitis of intestine, part unspecified, without perforation or abscess without bleeding (ICD-10) Hip pain ?M25.559 - Pain in unspecified hip (ICD-10) Knee pain ?M25.569 - Pain in unspecified knee (ICD-10) Furuncle of axilla ?L02.429 - Furuncle of limb, unspecified (ICD-10) Hip strain ?S76.019A - Strain of muscle, fascia and tendon of unspecified hip, initial encounter (ICD-10) Bronchitis ?J40 - Bronchitis, not specified as acute or chronic (ICD-10) COVID-19 ?U07.1 - COVID-19 (ICD-10) Hypertension ?I10 - Essential (primary) hypertension (ICD-10) Nonischemic cardiomyopathy ?I42.8 - Other cardiomyopathies (ICD-10) Heart failure ?I50.9 - Heart failure, unspecified (ICD-10) Back pain ?M54.9 - Dorsalgia, unspecified (ICD-10) Lumbar spondylosis ?M47.816 - Spondylosis without myelopathy or radiculopathy, lumbar region (ICD-10) Lumbar stenosis with neurogenic claudication ?M48.062 - Spinal stenosis, lumbar region with neurogenic claudication (ICD-10) Surgical History (Updated 11/22/23 @ 10:20 by Kierra Juarez NP) History of cholecystectomy ?Z90.49 - Acquired absence of other specified parts of digestive tract (ICD-10) History of appendectomy ?Z90.49 - Acquired absence of other specified parts of digestive tract (ICD-10) History of hysterectomy ?Z90.710 - Acquired absence of both cervix and uterus (ICD-10) History of bladder surgery ?Z98.890 - Other specified postprocedural states (ICD-10) H/O foot surgery ?Z98.890 - Other specified postprocedural states (ICD-10) Family History (Updated 11/22/23 @ 10:32 by Kierra Juarez NP) Other Family history of aneurysm Family history of diabetes mellitus Family history of hypertension Family history of myocardial infarction Family history of ovarian cancer Family history of stroke Social History (Updated 11/22/23 @ 10:28 by Kierra Juarez NP) Within the past year, how often did you have a drink containing alcohol: never Score interpretation: A score less than 3 is consistent with normal alcohol consumption. 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 General: The patient appears well and in no apparent distress. Skin: Warm, dry, no pallor noted. There is no rash noted. Head: Normocephalic, atraumatic, neck supple, no nuchal rigidity Eye: Normal conjunctiva, no drainage Ears, Nose, Mouth, and Throat: oral mucosa is moist. Nares patent. Cardiovascular: Regular Rate and Rhythm Respiratory: Patient is in no distress, no accessory muscle use, lungs are clear to auscultation, no wheezing, rales or rhonchi GI: Soft and nontender Musculoskeletal: The patient has no evidence of calf tenderness, no pitting edema, symmetrical pulses noted bilaterally Neurological: Awake alert and oriented. Upper and lower extremity strength intact. Psychiatric: Cooperative Constitutional Vital Signs, click to edit/add: Last Vital Signs Temp 98.0 F 12/09/23 09:05 Pulse 78 12/09/23 11:12 Resp 16 12/09/23 10:03 BP 124/91 12/09/23 11:12 Pulse Ox 95 12/09/23 11:12 O2 Del Method Room Air 12/09/23 09:05 Course Vital Signs Vital signs: Vital Signs Temperature 98.0 F 12/09/23 09:05 Pulse Rate 80 12/09/23 09:05 Respiratory Rate 118 H 12/09/23 09:05 Blood Pressure 136/78 12/09/23 09:05 Pulse Oximetry 98 12/09/23 09:05 Oxygen Delivery Method Room Air 12/09/23 09:05 Temperature 98.0 F 12/09/23 09:05 Pulse Rate 78 12/09/23 11:12 Respiratory Rate 16 12/09/23 10:03 Blood Pressure 124/91 12/09/23 11:12 Pulse Oximetry 95 12/09/23 11:12 Oxygen Delivery Method Room Air 12/09/23 09:05 Medical Decision Making MDM Narrative Medical decision making narrative: Blood work is essentially normal. Case discussed with her surgeon, Dr. Saint Hull. The headache is gone away completely and she has no symptoms. She will be discharged home. Treatment diagnosis and follow-up were discussed with the patient. Differential Diagnosis Differential Diagnosis: CSF leak, tension headache, postoperative pain Lab Data Lab results reviewed: Yes I reviewed the patient's lab results Labs: Lab Results 12/09/23 Range/Units 09:50 WBC 10.3 (4.0-11.0) 10^3/uL RBC 3.48 L (4.20-5.40) 10^6/uL Hgb 10.8 L (12.0-16.0) g/dL Hct 32.2 L (36.0-48.0) % MCV 92.5 (81.0-99.0) fL MCH 31.0 (26.7-34.0) pg MCHC 33.5 (29.9-35.2) g/dL RDW 12.7 (11.0-15.0) % Plt Count 290 (150-450) 10^3/uL MPV 9.5 (9.5-13.5) fL Neut % (Auto) 73.9 (43.0-75.0) % Lymph % (Auto) 14.1 L (20.5-60.0) % [place] % (Auto) 8.2 (1.7-12.0) % Eos % (Auto) 2.7 (0.9-7.0) % Baso % (Auto) 0.7 (0.2-2.0) % Neut # (Auto) 7.6 H (1.4-6.5) 10^3/uL Lymph # (Auto) 1.5 (1.2-3.8) 10^3/uL [place] # (Auto) 0.8 (0.3-0.8) 10^3/uL Eos # (Auto) 0.3 (0.0-0.7) 10^3/uL Baso # (Auto) 0.1 (0.0-0.1) 10^3/uL Abs Immat Gran (auto) 0.04 H (0.00-0.03) 10^3/uL Imm/Tot Granulo (auto) 0.4 (0.0-0.5) % Sodium 138 (136-145) mmol/L Potassium 4.1 (3.5-5.1) mmol/L Chloride 101 (98-107) mmol/L Carbon Dioxide 22.3 (21.0-32.0) mmol/L Anion Gap 18.8 BUN 20.0 H (7.0-18.0) mg/dL Creatinine 0.74 (0.55-1.02) mg/dL Est GFR ( Amer) >60 (>=60) Est GFR (Non-Af Amer) >60 (>=60) BUN/Creatinine Ratio 27.0 Glucose 118 H (74-106) mg/dL Calcium 9.6 (8.5-10.1) mg/dL Discharge Plan Discharge Stand Alone Forms: Portal Instructions Chief Complaint: Headache Clinical Impression: Headache Patient Disposition: Home, Self-Care Time of Disposition Decision: 12:23 Condition: Good Mode of Transportation: Private Vehicle Prescriptions / Home Meds: New hydrocodone-acetaminophen 5-325 mg tablet 1 tab PO Q6H PRN (Reason: pain) 5 Days Qty: 20 0RF No Action furosemide 40 mg tablet 40 mg PO DAILY Entresto 49-51 mg tablet 1 tab PO BID tizanidine 4 mg tablet 8 mg PO .hs PRN (Reason: muscles cramps) Hold Instructions: Doctor's Order leflunomide 20 mg tablet 20 mg PO DAILY spironolactone 25 mg tablet 25 mg PO DAILY carvedilol 25 mg Tablet 25 mg PO Q12H Qty: 60 11RF Print Language: Fijian Instructions: Acute Headache (ED) Referrals: Ti Garza MD [Primary Care Provider] - 1 week
[2023-12-09] MEDS: HYDROMORPHONE HCL 1 MG/ML CARTRIDGE IV (09:57)
[2023-12-09] MEDS: ONDANSETRON PF 4 MG/2 ML VIAL IV (09:58)
[2023-12-09 10:00] LABS: Basophils Absolute Auto 0.1 10^3/uL (0.0-0.1); Basophils Percent Auto 0.7 % (0.2-2.0); Eosinophils Absolute Auto 0.3 10^3/uL (0.0-0.7); Eosinophils Percent Auto 2.7 % (0.9-7.0); Hematocrit 32.2 % (36.0-48.0); Hemoglobin 10.8 g/dL (12.0-16.0); Immature Granulocytes Abs Auto 0.04 10^3/uL (0.00-0.03); Immature Granulocytes Pct Auto 0.4 % (0.0-0.5); Lymphocytes Absolute Auto 1.5 10^3/uL (1.2-3.8); Lymphocytes Percent Auto 14.1 % (20.5-60.0); Mean Corpuscular HGB Conc 33.5 g/dL (29.9-35.2); Mean Corpuscular Volume 92.5 fL (81.0-99.0); Mean Platelet Volume 9.5 fL (9.5-13.5); Monocytes Absolute Auto 0.8 10^3/uL (0.3-0.8); Monocytes Percent Auto 8.2 % (1.7-12.0); Neutrophils Absolute Auto 7.6 10^3/uL (1.4-6.5); Neutrophils Percent Auto 73.9 % (43.0-75.0); Platelet Count 290 10^3/uL (150-450); Red Blood Count 3.48 10^6/uL (4.20-5.40); Red Cell Distribution Width 12.7 % (11.0-15.0); White Blood Count 10.3 10^3/uL (4.0-11.0)
[2023-12-09 10:03] VITALS: BP 145/80; PULSE 80; O2SAT 94
[2023-12-09 10:21] LABS: Anion Gap 18.8; Calcium 9.6 mg/dL (8.5-10.1); Carbon Dioxide 22.3 mmol/L (21.0-32.0); Chloride 101 mmol/L (98-107); Estimated GFR (African America >60 (>=60); Estimated GFR (Non-African Ame >60 (>=60); Glucose 118 mg/dL (74-106); Potassium 4.1 mmol/L (3.5-5.1); Sodium 138 mmol/L (136-145)
[2023-12-09 11:12] VITALS: BP 124/91; PULSE 78; O2SAT 95
[2023-12-09 12:41] VITALS: BP 116/65; PULSE 77; O2SAT 96
== END 2023-12-09 12:42 | disposition home or self-care (01) ==
PROVIDERS: Emergency Provider Emergency Medicine; PCP Family Medicine
DX: R51.9 Headache, unspecified (principal); Z98.1 Arthrodesis status
CPT/HCPCS: 36415; 80048; 85025; 96374; 96375; 99284; J1170

== ENCOUNTER 2023-12-11 10:04 | Emergency (ER) | payer BC, SELFPAY ==
[2023-12-11 10:07] VITALS: BP 122/72; PULSE 79; TEMP 36.6; O2SAT 95
--- OUTSIDE RECORDS SUMMARY | 2023-12-11 10:09 | XMS_ITS | CCD ---
Author Organization [facility] Care Team Providers Care Car Whacker Name Role Phone PHYSICIAN, DEFAULT Unavailable Unavailable [...] Provider DR JOSE ANTONIO SHINE Attending Unavailable KAI ., DR BRADY Consulting Unavailable HOY ., [...] Unavailable HOY ., DR BRADY Admitting Unavailable GOLD RUN, DR UNA Mims Consulting Unavailable Nancy Kapadia Unavailable Maxi Glez Unavailable MD Jose Antonio Garza Primary Care Provider MD Jose Antonio Garza Primary Care Provider MD Kyle Calderon Attending Provider [phone] Jose Antonio Garza MD Primary Care Provider [phone] MD Jose Antonio Garza Primary Care Provider MD Kyle Calderon Attending Provider MD Stef Molina Jr Emergency Provider BRITTANY CHOUDHURY Attending Unavailable BRITTANY CHOUDHURY Referring Unavailable BRITTANY CHOUDHURY Attending Unavailable BRITTANY CHOUDHURY Attending Unavailable BRITTANY CHOUDHURY Referring Unavailable Kyle Calderon Admitting Unavailable Kyle Calderon Attending Unavailable Jose Antonio Garza M Primary Care Unavailable Kyle Calderon Attending Unavailable Kyle Calderon Admitting Unavailable Jose Antonio Garza M Primary Care Unavailable Jose Antonio Garza M Primary Care Unavailable Kyle Calderon Admitting Unavailable Kyel Calderon Attending Unavailable Stef Molina Jr Admitting Unavailable Stef Molina Jr Attending Unavailable Jose Antonio Garza Primary Care Unavailable Kyle Calderon Admitting Unavailable Kyle Calderon Attending Unavailable Jose Antonio Garza Primary Care Unavailable AMANUEL VALLADARES Attending Unavailable JOSE ANTONIO GARZA Primary Care Unavailable AMANUEL VALLADARES Attending Unavailable JOSE ANTONIO GARZA Primary Care Unavailable FCO COLLIER Referring Unavailable FCO COLLIER Attending Unavailable Briana Winters Attending Unavailable Allergies Allergy Classification Reported Allergen(s) Allergy Type Date of Onset Reaction(s) Facility (13 sources) Sulfamethoxazole / Trimethoprim; Translations: [SULFAMETHOXAZOLE-TR IMETHOPRIM] Drug Allergy 7 [facility] Repository (20 sources) Etanercept; Translations: [etanercept] Drug Allergy 1 Unknown (qualifier value), Unknown [facility] (20 sources) Methotrexate; Translations: [methotrexate] Drug Allergy 1 Unknown [facility] (20 sources) Sulfamethoxazole / Trimethoprim; Translations: [Bactrim DS TABS] Drug Allergy [facility] (10 sources) Sulfamethoxazole; Translations: [sulfamethoxazole] Drug Allergy 7 [facility] (10 sources) Trimethoprim; Translations: [trimethoprim] Drug Allergy 7 [facility] (2 sources) Etanercept; Translations: [Enbrel] Drug Allergy 1 [facility] Repository (1 source) Methotrexate Drug Allergy 1 [facility] Repository (3 sources) Sulfamethoxazole / Trimethoprim; Translations: [Bactrim] Drug Allergy 4 [facility] Repository (1 source) Etanercept Drug Allergy 3 [facility] Repository (1 source) Methotrexate Drug Allergy 3 [facility] Repository Medications Current Medications Medication Drug [...] aminophen Active 1 TAB PO Q6H 10 July 05, 2022 Calcium + D 500-1000-40 MG-UNT-MCG (8 sources) Calcium + D 500-1000-40 MG-UNT-MCG Orally Active Cane (7 sources) Start: 07-05-2022 Cane Active 0 .Route July 05, 2022 1:00am As directed Start: [...] day(s), # 20 tab(s), Refills(s) 0, Pharmacy: [facility] 1986, 155, cm, 02/24/23 12:00:00 EDT, [...] 30 tab(s), Refills(s) 0, Pharmacy: [facility] 1985 Start Date: 12/07/16 Status: Ordered homatropine [...] pain, # 20 tab(s), Refills(s) 0, Pharmacy: [facility] 1985, 152.4, cm, 05/21/21 7:42:00 [...] As Directed, 6tab/day x7days,5tab/day x7days,4tab/day x7day,3tab/day x7day,2tab/day x7day,1tab/pofp2jfi, # 119 tab(s), Refills(s) 0, Pharmacy: [facility] 1985 Start Date: 12/07/16 Status: Ordered take 1 tablet by neida th every twenty-four hours predniSONE 20 MG 1 tablet Orally Once a day Active Rituxan (2 sources) VR25-otapdnmg Cytolytic Antibody Start: 05-19-2022 Rituxan Refills(s) 0 [...] days, # 30 cap(s), Refills(s) 0, Pharmacy: [facility] 1985, 155, cm, 02/24/23 12:00:00 EDT, [...] 05-10-2022 Episodic Other aftercare (1 source) Other [employer] (current) drug therapy; Translations: [Other fpc (current) drug therapy] Onset: 09-27-2023 Episodic Other [...] week; will D/C at her request. Normal [facility] Nonvisit Note - PTon 024 Nonvisit Note - PT Cxl per patient. No message. Conf 11/14 Normal [facility] PT - Assessmentson PT - Assessments [id number]# 1.00TIFF Normal [facility] PT - Consentson 11-01-2023 PT - Consents [id number]# 1.00TIFF Normal [facility] PT - Home Exercise Programon 11-01-2023 PT - Home Exercise Program [id number]# 1.00TIFF Normal [facility] Consent for Treatmenton 10-16 Consent for Treatment [id number]#1 .00TIFF Normal [facility] PT - Orderson 10-28-2023 PT - Orders [id number]#1 .00TIFF Normal [facility] Complete Blood Count Auto Di ffon 09-27-2023 Basophils (Bld) [#/Vol] 0.1 10*3/uL Normal 0.0-0.2 [facility] Comment on above: Performed By: #### E SR, CBC, HEPATIC, CREAT #### [address] Basophils/100 WBC (Bld) 0.9 % Normal . [facility] Comment on above: Performed By: #### E SR, CBC, HEPATIC, CREAT #### [address] Eosinophils (Bld) [#/Vol] 0.1 10*3/uL Normal 0.0-0.45 [facility] Comment on above: Performed By: #### E SR, CBC, HEPATIC, CREAT #### [address] Eosinophils/100 WBC (Bld) 1.5 % Normal . [facility] Comment on above: Performed By: #### E SR, CBC, HEPATIC, CREAT #### [address] Erythrocyte distribution width (RBC) [Ratio] 13.6 % Normal 11.9-15.3 [facility] Comment on above: Performed By: #### E SR, CBC, HEPATIC, CREAT #### [address] Hematocrit (Bld) [Volume fraction] 37.3 % Normal 34.0-46.4 [facility] Comment on above: Performed By: #### E SR, CBC, HEPATIC, CREAT #### [address] Hemoglobin (Bld) [Mass/Vol] 12.5 g/dL Normal 11.8-15.4 [facility] Comment on above: Performed By: #### E SR, CBC, HEPATIC, CREAT #### [address] Lymphocytes (Bld) [#/Vol] 2.0 10*3/uL Normal 1.00-4.8 [facility] Comment on above: Performed By: #### E SR, CBC, HEPATIC, CREAT #### [address] Lymphocytes/100 WBC (Bld) 22.4 % Normal . [facility] Comment on above: Performed By: #### E SR, CBC, HEPATIC, CREAT #### [facility] [address] MCH (RBC) [Entitic mass] 30.9 pg Normal 24.7-34.3 [facility] Comment on above: Performed By: #### E SR, CBC, HEPATIC, CREAT #### [address] MCV (RBC) [Entitic vol] 92.4 fL Normal 80-100 [facility] Comment on above: Performed By: #### E SR, CBC, HEPATIC, CREAT #### [address] Mean Corpuscular HGB Conc 33.4 g/dL Normal 32.0-35.0 [facility] Comment on above: Performed By: #### E SR, CBC, HEPATIC, CREAT #### [address] Monocytes (Bld) [#/Vol] 0.7 10*3/uL Normal 0.0-0.8 [facility] Comment on above: Performed By: #### E SR, CBC, HEPATIC, CREAT #### [address] Monocytes/100 WBC (Bld) 7.3 % Normal . [facility] Comment on above: Performed By: #### E SR, CBC, HEPATIC, CREAT #### [address] Neutrophils (Bld) [#/Vol] 6.1 10*3/uL Normal 1.8-7.7 [facility] Comment on above: Performed By: #### E SR, CBC, HEPATIC, CREAT #### [place] [address] [place] Neutrophils/100 WBC (Bld) 67.9 % Normal . [facility] Comment on above: Performed By: #### E SR, CBC, HEPATIC, CREAT #### [address] NRBC% 0.1 /100{WBC} Normal 0-0.5 [facility] Comment on above: Performed By: #### E SR, CBC, HEPATIC, CREAT #### [address] Platelet mean volume (Bld) [Entitic vol] 8.8 fL Normal 6.3-10.7 [facility] Comment on above: Performed By: #### E SR, CBC, HEPATIC, CREAT #### [address] Platelets (Bld) [#/Vol] 212 10*3/uL Normal 150-450 [facility] Comment on above: Performed By: #### E SR, CBC, HEPATIC, CREAT #### [address] RBC (Bld) [#/Vol] 4.03 10*6/uL Normal 3.60-5.00 [facility] Comment on above: Performed By: #### E SR, CBC, HEPATIC, CREAT #### [address] WBC (Bld) [#/Vol] 8.9 10*3/uL Normal 3.8-11.6 [facility] Comment on above: Performed By: #### E SR, CBC, HEPATIC, CREAT #### [address] Creatinineon 09-27-2023 Creatinine [Mass/Vol] 0.88 mg/dL Normal 0.60-1.20 [facility] Comment on above: Performed By: #### E SR, CBC, HEPATIC, CREAT #### [address] GFR/1.73 sq M.predicted MDRD (S/P/Bld) [Vol rate/Area] mL/min/{1.73_m2} Normal [facility] Comment on above: Result Comment: PERF ORMED BY: [place] [address] PATHOLOGIST ESTHETICIAN MAKEUP ARTIST TAMERA DAO M.D. Performed By: #### E SR, CBC, HEPATIC, CREAT #### [facility] [address] Erythrocyte Sedimentation Ra moon 09-27-2023 ESR (Bld) [Velocity] 27 mm/h Normal 0-29 [facility] Comment on above: Result Comment: PERF ORMED BY: [place] [address] PATHOLOGIST ESTHETICIAN MAKEUP ARTIST TAMERA DAO M.D. Performed By: #### E SR, CBC, HEPATIC, CREAT #### [facility] [address] Hepatic Panelon 09-27-2023 Albumin [Mass/Vol] 4.1 g/dL Normal 3.5-5.7 [facility] Comment on above: Performed By: #### E SR, CBC, HEPATIC, CREAT #### [facility] [address] [place] [address] Albumin/Globulin [Mass ratio] 1.9 {ratio} Normal [facility] Comment on above: Performed By: #### E SR, CBC, HEPATIC, CREAT #### [facility] [address] [place] [address] ALP [Catalytic activity/Vol] 107 U/L High 34-104 [facility] Comment on above: Performed By: #### E SR, CBC, HEPATIC, CREAT #### [facility] [address] [place] [address] ALT [Catalytic activity/Vol] 72 U/L High 7-52 [facility] Comment on above: Performed By: #### E SR, CBC, HEPATIC, CREAT #### [facility] [address] [place] [address] [place] AST [Catalytic activity/Vol] 81 U/L High 13-39 [facility] Comment on above: Performed By: #### E SR, CBC, HEPATIC, CREAT #### [facility] [address] [place] [address] Bilirubin [Mass/Vol] 0.6 mg/dL Normal 0.3-1.0 [facility] Comment on above: Performed By: #### E SR, CBC, HEPATIC, CREAT #### [facility] [address] Bilirubin,Indirect 0.5 mg/dL Normal [facility] Comment on above: Performed By: #### E SR, CBC, HEPATIC, CREAT #### [facility] [address] Bilirubin.indirect [Mass/Vol] 0.10 mg/dL Normal 0.03-0.18 [facility] Comment on above: Performed By: #### E SR, CBC, HEPATIC, CREAT #### [facility] [address] Globulin (S) [Mass/Vol] 2.2 g/dL Normal [facility] Comment on above: Performed By: #### E SR, CBC, HEPATIC, CREAT #### [facility] [address] Protein [Mass/Vol] 6.3 g/dL Low 6.4-8.9 [facility] Comment on above: Performed By: #### E SR, CBC, HEPATIC, CREAT #### [facility] [address] COVID-19 / Flu A/B / RSV [...] or Cepheid Disclaimer revoked sooner. PERFORMED BY: [place] [address] PATHOLOGIST ESTHETICIAN MAKEUP ARTIST TAMERA DAO M.D. Normal [facility] Comment on above: Performed By: #### E SR, CBC, HEPATIC, CREAT #### [address] Cepheid COVID PCR Positiveon 06-01-2023 SARS-CoV-2 (COVID-19) RNA NANCY+probe Ql (Unsp spec) Positive Critically abnormal Negative [facility] Comment on above: Result Comment: This is a duplicate Cepheid Xpert Xpress CoV-2/Flu/RSV Plus RNA by RT-PCR result to be used for statistical tracking purpose only. PERFORMED BY: [place] [address] PATHOLOGIST ESTHETICIAN MAKEUP ARTIST TAMERA DAO M.D. Performed By: #### E SR, CBC, HEPATIC, CREAT #### [facility] [address] [place] [address] [place] XR chest 2V*on 06-01-2023 XR chest 2V* [facility] [address] [place] [address] [place] [address] XRay Report Signed Patient: Felicity Phillips MR#: [id number] [birth year] : 1965 Acct:[id number] Age/Sex: 57 / F ADM Date: 05/31/23 Loc: ER Room: Type: [facility] ER Attending Dr: Copies to: [...] Sally Colón M.D.06/01/2023 7:21 AM Dictation Location: [place] [address] Transcribed By: [facility] 06/01/23720 Dictated By: Sally Colón MD 06/01/23719 Signed By: 06/01/23 0721 Normal [facility] COVID CepheidOrdered By: Kory Molina on 05-31-2023 SARS-CoV-2 (COVID-19) Ab IA Ql Positive Negative [facility] Comment on above: This is a duplicate Cepheid Xpert Xpress CoV-2/Flu/RSV Plus RNA by RT-PCR result to be used for statistical tracking purpose only. SARS-CoV-2 (COVID-19) RNA NANCY+probe Ql (Unsp spec) [facility] Alanine aminotransferase [En zymatic activity/volume] in Serum or PlasmaOrdered By: Kyle Calderon on 04-28-2023 ALT [Catalytic activity/Vol] 58 U/L 7-52 [facility] Albumin [Mass/volume] in Ser um or Plasma by Bromocresol green (BCG) dye binding methoOrdered By: Kyle Calderon on 04-28-2023 Albumin BCG dye [Mass/Vol] 4.2 g/dL 3.5-5.7 [facility] Alkaline phosphatase [Enzyma tic activity/volume] in Serum or PlasmaOrdered By: Kyle Calderon on 04-28-2023 ALP [Catalytic activity/Vol] 102 U/L 34-104 [facility] Aspartate aminotransferase [ Enzymatic activity/volume] in Serum or PlasmaOrdered By: Kyle Calderon on 04-28-2023 AST [Catalytic activity/Vol] 53 U/L 13-39 [facility] Basophils Auto (Bld) [#/Vol] Ordered By: Kyle Calderon on 04-28-2023 Basophils (Bld) [#/Vol] 0.1 10*3/uL 0.0-0.2 [facility] Basophils/100 WBC Auto (Bld) Ordered By: Kyle Calderon on 04-28-2023 Basophils/100 WBC (Bld) 1.3 % . [facility] Bilirubin.direct [Mass/volum e] in Serum or PlasmaOrdered By: Kyle Calderon on 04-28-2023 Bilirubin.direct [Mass/Vol] 0.10 mg/dL 0.03-0.18 [facility] Bilirubin.total [Mass/volume ] in Serum or PlasmaOrdered By: yKle Calderon on 04-28-2023 Bilirubin [Mass/Vol] 0.8 mg/dL 0.3-1.0 [facility] Complete Blood Count Auto Di ffon 04-28-2023 Basophils (Bld) [#/Vol] 0.1 10*3/uL Normal 0.0-0.2 [facility] Comment on above: Performed By: #### E SR, CBC, HEPATIC, CREAT #### [facility] [address] [place] [id number] [facility] Basophils/100 WBC (Bld) 1.3 % Normal . [facility] Comment on above: Performed By: #### E SR, CBC, HEPATIC, CREAT #### [facility] [address] [place] [address] Eosinophils (Bld) [#/Vol] 0.2 10*3/uL Normal 0.0-0.45 [facility] Comment on above: Performed By: #### E SR, CBC, HEPATIC, CREAT #### [address] Eosinophils/100 WBC (Bld) 3.2 % Normal . [facility] Comment on above: Performed By: #### E SR, CBC, HEPATIC, CREAT #### [address] Erythrocyte distribution width (RBC) [Ratio] 13.5 % Normal 11.9-15.3 [facility] Comment on above: Performed By: #### E SR, CBC, HEPATIC, CREAT #### [address] Hematocrit (Bld) [Volume fraction] 36.5 % Normal 34.0-46.4 [facility] Comment on above: Performed By: #### E SR, CBC, HEPATIC, CREAT #### [address] Hemoglobin (Bld) [Mass/Vol] 12.3 g/dL Normal 11.8-15.4 [facility] Comment on above: Performed By: #### E SR, CBC, HEPATIC, CREAT #### [address] Lymphocytes (Bld) [#/Vol] 1.5 10*3/uL Normal 1.00-4.8 [facility] Comment on above: Performed By: #### E SR, CBC, HEPATIC, CREAT #### [place] [address] [place] Lymphocytes/100 WBC (Bld) 20.3 % Normal . [facility] Comment on above: Performed By: #### E SR, CBC, HEPATIC, CREAT #### [address] MCH (RBC) [Entitic mass] 31.2 pg Normal 24.7-34.3 [facility] Comment on above: Performed By: #### E SR, CBC, HEPATIC, CREAT #### [facility] [address] [place] [address] MCV (RBC) [Entitic vol] 92.2 fL Normal 80-100 [facility] Comment on above: Performed By: #### E SR, CBC, HEPATIC, CREAT #### [address] Mean Corpuscular HGB Conc 33.8 g/dL Normal 32.0-35.0 [facility] Comment on above: Performed By: #### E SR, CBC, HEPATIC, CREAT #### [address] Monocytes (Bld) [#/Vol] 0.6 10*3/uL Normal 0.0-0.8 [facility] Comment on above: Performed By: #### E SR, CBC, HEPATIC, CREAT #### [address] Monocytes/100 WBC (Bld) 9.0 % Normal . [facility] Comment on above: Performed By: #### E SR, CBC, HEPATIC, CREAT #### [address] Neutrophils (Bld) [#/Vol] 4.8 10*3/uL Normal 1.8-7.7 [facility] Comment on above: Performed By: #### E SR, CBC, HEPATIC, CREAT #### [address] Neutrophils/100 WBC (Bld) 66.2 % Normal . [facility] Comment on above: Performed By: #### E SR, CBC, HEPATIC, CREAT #### [address] NRBC% 0.1 /100{WBC} Normal 0-0.5 [facility] Comment on above: Performed By: #### E SR, CBC, HEPATIC, CREAT #### [address] Platelet mean volume (Bld) [Entitic vol] 8.7 fL Normal 6.3-10.7 [facility] Comment on above: Performed By: #### E SR, CBC, HEPATIC, CREAT #### [facility] [address] Platelets (Bld) [#/Vol] 202 10*3/uL Normal 150-450 [facility] Comment on above: Performed By: #### E SR, CBC, HEPATIC, CREAT #### [address] RBC (Bld) [#/Vol] 3.96 10*6/uL Normal 3.60-5.00 [facility] Comment on above: Performed By: #### E SR, CBC, HEPATIC, CREAT #### [address] WBC (Bld) [#/Vol] 7.2 10*3/uL Normal 3.8-11.6 [facility] Comment on above: Performed By: #### E SR, CBC, HEPATIC, CREAT #### [address] Creatinineon 04-28-2023 Creatinine [Mass/Vol] 0.70 mg/dL Normal 0.60-1.20 [facility] Comment on above: Performed By: #### E SR, CBC, HEPATIC, CREAT #### [address] GFR/1.73 sq M.predicted MDRD (S/P/Bld) [Vol rate/Area] mL/min/{1.73_m2} Normal [facility] Comment on above: Result Comment: PERF ORMED BY: [place] [address] PATHOLOGIST ESTHETICIAN MAKEUP ARTIST TAMERA DAO M.D. Performed By: #### E SR, CBC, HEPATIC, CREAT #### [address] Creatinine [Mass/volume] in Serum or PlasmaOrdered By: Kyle Calderon on 04-28-2023 Creatinine [Mass/Vol] 0.70 mg/dL 0.60-1.20 [facility] Eosinophils Auto (Bld) [#/Vo l]Ordered By: Kyle Calderon on 04-28-2023 Eosinophils (Bld) [#/Vol] 0.2 10*3/uL 0.0-0.45 [facility] Eosinophils/100 WBC Auto (Bl d)Ordered By: Kyle Calderon on 04-28-2023 Eosinophils/100 WBC (Bld) 3.2 % . [facility] Erythrocyte Sedimentation Ra moon 04-28-2023 ESR (Bld) [Velocity] 24 mm/h Normal 0-29 [facility] Comment on above: Result Comment: PERF ORMED BY: [place] [address] PATHOLOGIST ESTHETICIAN MAKEUP ARTIST TAMERA DAO M.D. Performed By: #### E SR, CBC, HEPATIC, CREAT #### [address] Erythrocyte distribution wid th Auto (RBC) [Ratio]Ordered By: Kyle Calderon on 04-28-2023 Erythrocyte distribution width (RBC) [Ratio] 13.5 % 11.9-15.3 [facility] Erythrocyte sedimentation ra te by Photometric methodOrdered By: Kyle Calderon on 04-28-2023 ESR Photometric method (Bld) [Velocity] 24 mm/hr 0-29 [facility] Globulin Calc (S) [Mass/Vol] Ordered By: Kyle Calderon on 04-28-2023 Globulin (S) [Mass/Vol] 1.9 g/dL [facility] Hematocrit Auto (Bld) [Volum e fraction]Ordered By: Kyle Calderon on 04-28-2023 Hematocrit (Bld) [Volume fraction] 36.5 % 34.0-46.4 [facility] Hemoglobin [Mass/volume] in BloodOrdered By: Kyle Calderon on 04-28-2023 Hemoglobin (Bld) [Mass/Vol] 12.3 g/dL 11.8-15.4 [facility] Hepatic Panelon 04-28-2023 Albumin [Mass/Vol] 4.2 g/dL Normal 3.5-5.7 [facility] Comment on above: Performed By: #### E SR, CBC, HEPATIC, CREAT #### [facility] [address] Albumin/Globulin [Mass ratio] 2.2 {ratio} Normal [facility] Comment on above: Performed By: #### E SR, CBC, HEPATIC, CREAT #### [facility] [address] ALP [Catalytic activity/Vol] 102 U/L Normal 34-104 [facility] Comment on above: Performed By: #### E SR, CBC, HEPATIC, CREAT #### [facility] [address] ALT [Catalytic activity/Vol] 58 U/L High 7-52 [facility] Comment on above: Performed By: #### E SR, CBC, HEPATIC, CREAT #### [facility] [address] AST [Catalytic activity/Vol] 53 U/L High 13-39 [facility] Comment on above: Performed By: #### E SR, CBC, HEPATIC, CREAT #### [facility] [address] [place] [address] [place] Bilirubin [Mass/Vol] 0.8 mg/dL Normal 0.3-1.0 [facility] Comment on above: Performed By: #### E SR, CBC, HEPATIC, CREAT #### [facility] [address] [place] [address] [place] Bilirubin,Indirect 0.7 mg/dL Normal [facility] Comment on above: Performed By: #### E SR, CBC, HEPATIC, CREAT #### [facility] [address] [place] [address] [place] Bilirubin.indirect [Mass/Vol] 0.10 mg/dL Normal 0.03-0.18 [facility] Comment on above: Performed By: #### E SR, CBC, HEPATIC, CREAT #### [facility] [address] Globulin (S) [Mass/Vol] 1.9 g/dL Normal [facility] Comment on above: Performed By: #### E SR, CBC, HEPATIC, CREAT #### [facility] [address] Protein [Mass/Vol] 6.1 g/dL Low 6.4-8.9 [facility] Comment on above: Performed By: #### E SR, CBC, HEPATIC, CREAT #### [facility] [address] Leukocytes [#/volume] correc edd for nucleated erythrocytes in Blood by Automated counOrdered By: Kyle Calderon on 04-28-2023 WBC corrected for nucl RBC Auto (Bld) [#/Vol] 7.2 10*3/uL 3.8-11.6 [facility] Lymphocytes Auto (Bld) [#/Vo l]Ordered By: Kyle Calderon on 04-28-2023 Lymphocytes (Bld) [#/Vol] 1.5 10*3/uL 1.00-4.8 [facility] Lymphocytes/100 WBC Auto (Bl d)Ordered By: Kyle Calderon on 04-28-2023 Lymphocytes/100 WBC (Bld) 20.3 % . [facility] MCH Auto (RBC) [Entitic mass ]Ordered By: Kyle Calderon on 04-28-2023 MCH (RBC) [Entitic mass] 31.2 pg 24.7-34.3 [facility] MCHC Auto (RBC) [Mass/Vol]Or dered By: Kyle Calderon on 04-28-2023 MCHC (RBC) [Mass/Vol] 33.8 g/dL 32.0-35.0 [facility] MCV Auto (RBC) [Entitic vol] Ordered By: Kyle Calderon on 04-28-2023 MCV (RBC) [Entitic vol] 92.2 fL 80-100 [facility] Monocytes Auto (Bld) [#/Vol] Ordered By: Kyle Calderon on 04-28-2023 Monocytes (Bld) [#/Vol] 0.6 10*3/uL 0.0-0.8 [facility] Monocytes/100 WBC Auto (Bld) Ordered By: Kyle Calderon on 04-28-2023 Monocytes/100 WBC (Bld) 9.0 % . [facility] Neutrophils Auto (Bld) [#/Vo l]Ordered By: Kyle Calderon on 04-28-2023 Neutrophils (Bld) [#/Vol] 4.8 10*3/uL 1.8-7.7 [facility] Neutrophils/100 WBC Auto (Bl d)Ordered By: Kyle Calderon on 04-28-2023 Neutrophils/100 WBC (Bld) 66.2 % . [facility] No Panel InformationOrdered By: Kyle Calderon on 04-28-2023 Estimated GFR (CKD-EPI) > 60.0 mL/Min [facility] Creatinine Clearance (Chem N/A [facility] Nucleated erythrocytes [Pres ence] in Blood by Automated countOrdered By: Kyle Calderon on 04-28-2023 Nucleated RBC Auto Ql (Bld) 0.1 /100{WBC} 0-0.5 [facility] Platelet mean volume Auto (B ld) [Entitic vol]Ordered By: Kyle Calderon on 04-28-2023 Platelet mean volume (Bld) [Entitic vol] 8.7 fL 6.3-10.7 [facility] Platelets Auto (Bld) [#/Vol] Ordered By: Kyle Calderon on 04-28-2023 Platelets (Bld) [#/Vol] 202 10*3/uL 150-450 [facility] Protein [Mass/volume] in Ser um or PlasmaOrdered By: Kyle Calderon on 04-28-2023 Protein [Mass/Vol] 6.1 g/dL 6.4-8.9 [facility] RBC Auto (Bld) [#/Vol]Ordere d By: Kyle Calderon on 04-28-2023 RBC (Bld) [#/Vol] 3.96 10*6/uL 3.60-5.00 [facility] Serum or plasma albumin/glob ulin mass ratioOrdered By: Kyle Calderon on 04-28-2023 Albumin/Globulin [Mass ratio] 2.2 {ratio} [facility] Serum or plasma non-glucuron idated bilirubin measurement (mass/volume)Ordered By: Kyle Calderon on 04-28-2023 Bilirubin.indirect [Mass/Vol] 0.7 mg/dL [facility] WBC Auto (Bld) [#/Vol]Ordere d By: Kyle Calderon on 04-28-2023 WBC (Bld) [#/Vol] 7.2 10*3/uL 3.8-11.6 [facility] Consent for Treatmenton 02-15 Consent for Treatment [id number]:127 Normal [facility] Discharge Instructionson Discharge Instructions [id number]:127 Normal [facility] ED Clinical Summaryon 2022 ED Clinical Summary [place] [id number] ED Clinical Summary Person Information Name: FELICITY PHILLIPS [facility]ann/[facility] Age: 57 Years : 1965 Sex: Female [...] 02/24/2023 13:18:12 02/24/2023 13:18:12 02/24/2023 13:18:12 ADDRESS: [address] [place] [id number] PHYS DOC NOTES: MEDICAL INFORMATION: Prescriptions Given: New Medications [facility] 1986, [address] [place], [place] [id number], [phone] cephalexin (Keflex 500 mg Cap) 1 Capsules [...] up: With: Address: When: Jose Antonio Garza [address] [place] [address], [address] [place] [id number] Business (1) In 3 days 02/27/2023 DIAGNOSIS: Abscess; Cellulitis Normal [facility] ED Note-Physicianon 02-25-20 ED Note-Physician Basic [...] days, # 30 cap(s), Refills(s) 0, Pharmacy: [facility] 1985, 155, cm, 02/24/23 12:00:00 EDT, Height/Length Dosing, 108.2, kg, 02/24/23 12:00:00 EDT, Weight Dosing doxycycline, 100 mg = 1 tab(s), Oral, BID, X 10 day(s), # 20 tab(s), Refills(s) 0, Pharmacy: [facility] 1985, 155, cm, 02/24/23 12:00:00 [...] Garza In 3 days 02/27/2023 EDT [address] [facility] [address] [address] [place] [address] [place] [address]- Business (1) Additional Instructions: Patient Education Skin Abscess Cellulitis, Adult Attestation Patient seen and evaluated by the physician parts room assistant. Attending physician was present in the emergency department and supervised care. This visit was performed by both the physician and an APC. I performed all aspects of the MDM as documented. This report was transcribed using voice recognition software. Every effort was made to ensure accuracy, however, inadvertently computerized circulation director mistakes may be present. Appropriate healthcare PPE [...] Keflex 5 (more content not included)... Normal [facility] Comment on above: Result Comment: Elec [...] these instructions at home: Medicines ? 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 ? Check your abscess every day for [...] care pro (more content not included)... Normal [facility] ED Patient Summaryon 023 ED Patient Summary [address] [address] Patient Discharge Instructions Person Information Name: FELICITY PHILLIPS Age: 57 Years Arrival Date: 02/24/2023 11:52:40 Discharge Diagnosis: Abscess; Cellulitis Primary Care Physician: Jose Antonio Garza MD Provider Information Primary Provider: Briana Winters M.D. Advanced Slag Mixer:Rodrick Mobley PA-C The exam and treatment you received in the Emergency Department were for an urgent problem and are not intended as complete care. It is important that you follow up with a doctor, nurse practitioner, or physician?s parts room assistant for ongoing care. If your symptoms [...] Instructions: With: Address: When: Jose Antonio Fortejenifer [address] [place] [address], [place] [address] Business (1) In 3 days 02/27/2023 In the event that this physician does not participate in your insurance network, please consult with your insurance company to find a nearby participating provider. Patient Education Materials: Skin Abscess; Cellulitis, Adult A MESSAGE TO ALL PATIENTS REGARDING OPIOIDS PRESCRIPTION OPIOIDS: WHAT YOU NEED TO KNOW Prescription opioids can be used to help relieve ewmltrpi-ux-wyszqf pain and are often prescribed following a [...] be struggling with addiction, tell your health respiratory care practitioner and ask for guidance or call [facility]?S National Helpline at 4-187-877-DYXA. (more content not included)... Normal [facility] Alanine aminotransferase [En zymatic activity/volume] in Serum or PlasmaOrdered By: Kyle Calderon on 01-05-2023 ALT [Catalytic activity/Vol] 41 U/L 7-52 [facility] Albumin [Mass/volume] in Ser um or Plasma by Bromocresol green (BCG) dye binding methoOrdered By: Kyle Calderon on 01-05-2023 Albumin BCG dye [Mass/Vol] 4.4 g/dL 3.5-5.7 [facility] Alkaline phosphatase [Enzyma tic activity/volume] in Serum or PlasmaOrdered By: Kyle Calderon on 01-05-2023 ALP [Catalytic activity/Vol] 93 U/L 34-104 [facility] Anisocytosis LM Ql (Bld)Orde red By: Kyle Calderon on 01-05-2023 Anisocytosis Ql (Bld) Slight [facility] Aspartate aminotransferase [ Enzymatic activity/volume] in Serum or PlasmaOrdered By: Kyle Calderon on 01-05-2023 AST [Catalytic activity/Vol] 19 U/L 13-39 [facility] Band form neutrophils/100 WB C Manual cnt (Bld)Ordered By: Kyle Calderon on 01-05-2023 Band form neutrophils/100 WBC (Bld) 1 % 0-5 [facility] Basophils Auto (Bld) [#/Vol] Ordered By: Kyle Calderon on 01-05-2023 Basophils (Bld) [#/Vol] N/A [facility] Basophils/100 WBC Auto (Bld) Ordered By: Kyle Calderon on 01-05-2023 Basophils/100 WBC (Bld) N/A [facility] Basophils/100 WBC Manual cnt (Bld)Ordered By: Kyle Calderon on 01-05-2023 Basophils/100 WBC (Bld) 0 % 0-2 [facility] Bilirubin.direct [Mass/volum e] in Serum or PlasmaOrdered By: Kyle Calderon on 01-05-2023 Bilirubin.direct [Mass/Vol] 0.10 mg/dL 0.03-0.18 [facility] Bilirubin.total [Mass/volume ] in Serum or PlasmaOrdered By: Kyle Calderon on 01-05-2023 Bilirubin [Mass/Vol] 0.6 mg/dL 0.3-1.0 [facility] Creatinineon 01-05-2023 Creatinine [Mass/Vol] 0.85 mg/dL Normal 0.60-1.20 [facility] Comment on above: Performed By: #### E SR, CBC, HEPATIC, CREAT #### [facility] [address] [place] [address] [place] GFR/1.73 sq M.predicted MDRD (S/P/Bld) [Vol rate/Area] mL/min/{1.73_m2} Normal [facility] Comment on above: Result Comment: PERF ORMED BY: [place] [address] PATHOLOGIST ESTHETICIAN MAKEUP ARTIST TAMERA DAO M.D. Performed By: #### E SR, CBC, HEPATIC, CREAT #### [facility] [address] [place] [address] Creatinine [Mass/volume] in Serum or PlasmaOrdered By: Kyle Calderon on 01-05-2023 Creatinine [Mass/Vol] 0.85 mg/dL 0.60-1.20 [facility] Diff and CBCon 01-05-2023 Anisocytosis Ql (Bld) Slight Normal [facility] Comment on above: Performed By: #### E SR, CBC, HEPATIC, CREAT #### [facility] [address] [place] [address] [place] Band form neutrophils/100 WBC (Bld) 1 % Normal 0-5 [facility] Comment on above: Performed By: #### E SR, CBC, HEPATIC, CREAT #### [facility] [address] [place] [address] [place] Basophils/100 WBC (Bld) 0 % Normal 0-2 [facility] Comment on above: Performed By: #### E SR, CBC, HEPATIC, CREAT #### [address] Eosinophils/100 WBC (Bld) 4 % High 1-3 [facility] Comment on above: Performed By: #### E SR, CBC, HEPATIC, CREAT #### [address] Erythrocyte distribution width (RBC) [Ratio] 15.0 % Normal 11.9-15.3 [facility] Comment on above: Performed By: #### E SR, CBC, HEPATIC, CREAT #### [address] Hematocrit (Bld) [Volume fraction] 35.4 % Normal 34.0-46.4 [facility] Comment on above: Performed By: #### E SR, CBC, HEPATIC, CREAT #### [address] Hemoglobin (Bld) [Mass/Vol] 12.1 g/dL Normal 11.8-15.4 [facility] Comment on above: Performed By: #### E SR, CBC, HEPATIC, CREAT #### [address] Lymphocytes/100 WBC (Bld) 13 % Low 18-42 [facility] Comment on above: Performed By: #### E SR, CBC, HEPATIC, CREAT #### [address] MCH (RBC) [Entitic mass] 31.7 pg Normal 24.7-34.3 [facility] Comment on above: Performed By: #### E SR, CBC, HEPATIC, CREAT #### [address] MCV (RBC) [Entitic vol] 92.6 fL Normal 80-100 [facility] Comment on above: Performed By: #### E SR, CBC, HEPATIC, CREAT #### [address] Mean Corpuscular HGB Conc 34.2 g/dL Normal 32.0-35.0 [facility] Comment on above: Performed By: #### E SR, CBC, HEPATIC, CREAT #### [facility] [address] [place] [address] Metamyelocytes 1 % High 0-0 [facility] Comment on above: Performed By: #### E SR, CBC, HEPATIC, CREAT #### [facility] [address] [place] [address] Microcytosis Slight Normal [facility] Comment on above: Performed By: #### E SR, CBC, HEPATIC, CREAT #### [facility] [address] [place] [address] Monocytes/100 WBC (Bld) 6 % Normal 2-11 [facility] Comment on above: Performed By: #### E SR, CBC, HEPATIC, CREAT #### [facility] [address] [place] [address] Myelocytes 1 % High 0-0 [facility] Comment on above: Performed By: #### E SR, CBC, HEPATIC, CREAT #### [facility] [address] [place] [address] Platelet Estimate Normal Normal Normal [facility] Comment on above: Performed By: #### E SR, CBC, HEPATIC, CREAT #### [facility] [address] [place] [address] Platelet mean volume (Bld) [Entitic vol] 8.3 fL Normal 6.3-10.7 [facility] Comment on above: Performed By: #### E SR, CBC, HEPATIC, CREAT #### [facility] [address] [place] [address] Platelet Morphology Normal Normal Normal [facility] Comment on above: Performed By: #### E SR, CBC, HEPATIC, CREAT #### [facility] [address] [place] [address] Platelets (Bld) [#/Vol] 204 10*3/uL Normal 150-450 [facility] Comment on above: Performed By: #### E SR, CBC, HEPATIC, CREAT #### [facility] [address] Polychromasia Slight Normal [facility] Comment on above: Performed By: #### E SR, CBC, HEPATIC, CREAT #### [facility] [address] RBC (Bld) [#/Vol] 3.82 10*6/uL Normal 3.60-5.00 [facility] Comment on above: Performed By: #### E SR, CBC, HEPATIC, CREAT #### [facility] [address] [place] [address] Segmented neutrophils/100 WBC (Bld) 74 % High 50-70 [facility] Comment on above: Performed By: #### E SR, CBC, HEPATIC, CREAT #### [facility] [address] [place] [address] WBC (Bld) [#/Vol] 10.8 10*3/uL Normal 3.8-11.6 [facility] Comment on above: Performed By: #### E SR, CBC, HEPATIC, CREAT #### [facility] [address] [place] [address] Eosinophils Auto (Bld) [#/Vo l]Ordered By: Kyle Calderon on 01-05-2023 Eosinophils (Bld) [#/Vol] N/A [facility] Eosinophils/100 WBC Auto (Bl d)Ordered By: Kyle Calderon on 01-05-2023 Eosinophils/100 WBC (Bld) N/A [facility] Eosinophils/100 WBC Manual c nt (Bld)Ordered By: Kyle Calderon on 01-05-2023 Eosinophils/100 WBC (Bld) 4 % 1-3 [facility] Erythrocyte Sedimentation Ra moon 01-05-2023 ESR (Bld) [Velocity] 17 mm/h Normal 0-29 [facility] Comment on above: Result Comment: PERF ORMED BY: [place] [address] PATHOLOGIST ESTHETICIAN MAKEUP ARTIST TAMERA DAO M.D. Performed By: #### E SR, CBC, HEPATIC, CREAT #### [facility] [address] [place] [address] [place] Erythrocyte distribution wid th Auto (RBC) [Ratio]Ordered By: Kyle Calderon on 01-05-2023 Erythrocyte distribution width (RBC) [Ratio] 15.0 % 11.9-15.3 [facility] Erythrocyte sedimentation ra te by Photometric methodOrdered By: Kyle Calderon on 01-05-2023 ESR Photometric method (Bld) [Velocity] 17 mm/hr 0-29 [facility] Globulin Calc (S) [Mass/Vol] Ordered By: Kyle Calderon on 01-05-2023 Globulin (S) [Mass/Vol] 2.2 g/dL [facility] Hematocrit Auto (Bld) [Volum e fraction]Ordered By: Kyle Calderon on 01-05-2023 Hematocrit (Bld) [Volume fraction] 35.4 % 34.0-46.4 [facility] Hemoglobin [Mass/volume] in BloodOrdered By: Kyle Calderon on 01-05-2023 Hemoglobin (Bld) [Mass/Vol] 12.1 g/dL 11.8-15.4 [facility] Hepatic Panelon 01-05-2023 Albumin [Mass/Vol] 4.4 g/dL Normal 3.5-5.7 [facility] Comment on above: Performed By: #### C REAT, HEPATIC, DIFF CBC, ESR #### [facility] [address] [place] [address] [place] Albumin/Globulin [Mass ratio] 2.0 {ratio} Normal [facility] Comment on above: Performed By: #### C REAT, HEPATIC, DIFF CBC, ESR #### [facility] [address] [place] [id number] [place] ALP [Catalytic activity/Vol] 93 U/L Normal 34-104 [facility] Comment on above: Performed By: #### C REAT, HEPATIC, DIFF CBC, ESR #### [facility] [address] [place] [id number] [facility] ALT [Catalytic activity/Vol] 41 U/L Normal 7-52 [facility] Comment on above: Performed By: #### C REAT, HEPATIC, DIFF CBC, ESR #### [facility] [address] AST [Catalytic activity/Vol] 19 U/L Normal 13-39 [facility] Comment on above: Performed By: #### C REAT, HEPATIC, DIFF CBC, ESR #### [facility] [address] Bilirubin [Mass/Vol] 0.6 mg/dL Normal 0.3-1.0 [facility] Comment on above: Performed By: #### C REAT, HEPATIC, DIFF CBC, ESR #### [facility] [address] Bilirubin,Indirect 0.5 mg/dL Normal [facility] Comment on above: Performed By: #### C REAT, HEPATIC, DIFF CBC, ESR #### [facility] [address] Bilirubin.indirect [Mass/Vol] 0.10 mg/dL Normal 0.03-0.18 [facility] Comment on above: Performed By: #### C REAT, HEPATIC, DIFF CBC, ESR #### [facility] [address] Globulin (S) [Mass/Vol] 2.2 g/dL Normal [facility] Comment on above: Performed By: #### C REAT, HEPATIC, DIFF CBC, ESR #### [facility] [address] Protein [Mass/Vol] 6.6 g/dL Normal 6.4-8.9 [facility] Comment on above: Performed By: #### C REAT, HEPATIC, DIFF CBC, ESR #### [facility] [address] Leukocytes [#/volume] correc edd for nucleated erythrocytes in Blood by Automated counOrdered By: Kyle Calderon on 01-05-2023 WBC corrected for nucl RBC Auto (Bld) [#/Vol] 10.8 10*3/uL 3.8-11.6 [facility] Lymphocytes Auto (Bld) [#/Vo l]Ordered By: Kyle Calderon on 01-05-2023 Lymphocytes (Bld) [#/Vol] N/A [facility] Lymphocytes/100 WBC Auto (Bl d)Ordered By: Kyle Calderon on 01-05-2023 Lymphocytes/100 WBC (Bld) N/A [facility] Lymphocytes/100 WBC Manual c nt (Bld)Ordered By: Kyle Calderon on 01-05-2023 Lymphocytes/100 WBC (Bld) 13 % 18-42 [facility] MCH Auto (RBC) [Entitic mass ]Ordered By: Kyle Calderon on 01-05-2023 MCH (RBC) [Entitic mass] 31.7 pg 24.7-34.3 [facility] MCHC Auto (RBC) [Mass/Vol]Or dered By: Kyle Calderon on 01-05-2023 MCHC (RBC) [Mass/Vol] 34.2 g/dL 32.0-35.0 [facility] MCV Auto (RBC) [Entitic vol] Ordered By: Kyle Calderon on 01-05-2023 MCV (RBC) [Entitic vol] 92.6 fL 80-100 [facility] Metamyelocytes/100 WBC Manua l cnt (Bld)Ordered By: Kyle Calderon on 01-05-2023 Metamyelocytes/100 WBC (Bld) 1 % 0-0 [facility] Microcytes LM Ql (Bld)Ordere d By: Kyle Calderon on 01-05-2023 Microcytes Ql (Bld) Slight [facility] Monocytes Auto (Bld) [#/Vol] Ordered By: Kyle Calderon on 01-05-2023 Monocytes (Bld) [#/Vol] N/A [facility] Monocytes/100 WBC Auto (Bld) Ordered By: Kyle Calderon on 01-05-2023 Monocytes/100 WBC (Bld) N/A [facility] Monocytes/100 WBC Manual cnt (Bld)Ordered By: Kyle Calderon on 01-05-2023 Monocytes/100 WBC (Bld) 6 % 2-11 [facility] Myelocytes/100 WBC Manual cn t (Bld)Ordered By: Kyle Calderon on 01-05-2023 Myelocytes/100 WBC (Bld) 1 % 0-0 [facility] Neutrophils Auto (Bld) [#/Vo l]Ordered By: Kyle Calderon on 01-05-2023 Neutrophils (Bld) [#/Vol] N/A [facility] Neutrophils/100 WBC Auto (Bl d)Ordered By: Kyle Calderon on 01-05-2023 Neutrophils/100 WBC (Bld) N/A [facility] No Panel InformationOrdered By: Kyle Calderon on 01-05-2023 Estimated GFR (CKD-EPI) > 60.0 mL/Min [facility] Creatinine Clearance (Chem N/A [facility] Nucleated erythrocytes [Pres ence] in Blood by Automated countOrdered By: Kyle Calderon on 01-05-2023 Nucleated RBC Auto Ql (Bld) N/A [facility] Platelet adequacy [Presence] in Blood by Light microscopyOrdered By: Kyle Calderon on 01-05-2023 Platelets LM Ql (Bld) Normal Normal [facility] Platelet mean volume Auto (B ld) [Entitic vol]Ordered By: Kyle Calderon on 01-05-2023 Platelet mean volume (Bld) [Entitic vol] 8.3 fL 6.3-10.7 [facility] Platelet morphology finding [Identifier] in BloodOrdered By: Kyle Calderon on 01-05-2023 Platelet morphology finding Nom (Bld) Normal Normal [facility] Platelets Auto (Bld) [#/Vol] Ordered By: Kyle Calderon on 01-05-2023 Platelets (Bld) [#/Vol] 204 10*3/uL 150-450 [facility] Polychromasia [Presence] in Blood by Light microscopyOrdered By: Kyle Calderon on 01-05-2023 Polychromasia LM Ql (Bld) Slight [facility] Protein [Mass/volume] in Ser um or PlasmaOrdered By: Kyle Calderon on 01-05-2023 Protein [Mass/Vol] 6.6 g/dL 6.4-8.9 [facility] RBC Auto (Bld) [#/Vol]Ordere d By: Kyle Calderon on 01-05-2023 RBC (Bld) [#/Vol] 3.82 10*6/uL 3.60-5.00 [facility] RBC morphologyOrdered By: Jazmin Calderon on 01-05-2023 RBC morphology finding Nom (Bld) N/A [facility] Segmented neutrophils/100 WB C Manual cnt (Bld)Ordered By: Kyle Calderon on 01-05-2023 Segmented neutrophils/100 WBC (Bld) 74 % 50-70 [facility] Serum or plasma albumin/glob ulin mass ratioOrdered By: Kyle Calderon on 01-05-2023 Albumin/Globulin [Mass ratio] 2.0 {ratio} [facility] Serum or plasma non-glucuron idated bilirubin measurement (mass/volume)Ordered By: Kyle Calderon on 01-05-2023 Bilirubin.indirect [Mass/Vol] 0.5 mg/dL [facility] WBC Auto (Bld) [#/Vol]Ordere d By: Kyle Calderon on 01-05-2023 WBC (Bld) [#/Vol] 10.8 10*3/uL 3.8-11.6 [facility] CT LSPINE WO CONon 3 CT [...] by: UNA ELMORE Date: 2022-11-13 09:34 Normal [facility] CT PELVIS WO CONon 3 CT [...] by: UNA ELMORE Date: 2022-11-13 09:29 Normal [facility] Alanine aminotransferase [En zymatic activity/volume] in Serum or PlasmaOrdered By: Kyle Calderon on 11-03-2022 ALT [Catalytic activity/Vol] 41 U/L 7-52 [facility] Albumin [Mass/volume] in Ser um or Plasma by Bromocresol green (BCG) dye binding methoOrdered By: Kyle Calderon on 11-03-2022 Albumin BCG dye [Mass/Vol] 4.0 g/dL 3.5-5.7 [facility] Alkaline phosphatase [Enzyma tic activity/volume] in Serum or PlasmaOrdered By: Kyle Calderon on 11-03-2022 ALP [Catalytic activity/Vol] 95 U/L 34-104 [facility] Aspartate aminotransferase [ Enzymatic activity/volume] in Serum or PlasmaOrdered By: Kyle Calderon on 11-03-2022 AST [Catalytic activity/Vol] 17 U/L 13-39 [facility] Basophils Auto (Bld) [#/Vol] Ordered By: Kyle Calderon on 11-03-2022 Basophils (Bld) [#/Vol] 0.1 10*3/uL 0.0-0.2 [facility] Basophils/100 WBC Auto (Bld) Ordered By: Kyle Calderon on 11-03-2022 Basophils/100 WBC (Bld) 0.9 % . [facility] Bilirubin.direct [Mass/volum e] in Serum or PlasmaOrdered By: Kyle Calderon on 11-03-2022 Bilirubin.direct [Mass/Vol] 0.10 mg/dL 0.03-0.18 [facility] Bilirubin.total [Mass/volume ] in Serum or PlasmaOrdered By: Kyle Calderon on 11-03-2022 Bilirubin [Mass/Vol] 0.7 mg/dL 0.3-1.0 [facility] Complete Blood Count Auto Di ffon 11-03-2022 Basophils (Bld) [#/Vol] 0.1 10*3/uL Normal 0.0-0.2 [facility] Comment on above: Performed By: #### H EPATIC, CREAT, CBC, ESR #### [facility] [address] [place] [id number] [place] Basophils/100 WBC (Bld) 0.9 % Normal . [facility] Comment on above: Performed By: #### H EPATIC, CREAT, CBC, ESR #### [facility] [address] [place] [address] [place] Eosinophils (Bld) [#/Vol] 0.2 10*3/uL Normal 0.0-0.45 [facility] Comment on above: Performed By: #### H EPATIC, CREAT, CBC, ESR #### [facility] [address] [place] [id number] [place] Eosinophils/100 WBC (Bld) 1.4 % Normal . [facility] Comment on above: Performed By: #### H EPATIC, CREAT, CBC, ESR #### [address] Erythrocyte distribution width (RBC) [Ratio] 14.6 % Normal 11.9-15.3 [facility] Comment on above: Performed By: #### H EPATIC, CREAT, CBC, ESR #### [address] Hematocrit (Bld) [Volume fraction] 37.2 % Normal 34.0-46.4 [facility] Comment on above: Performed By: #### H EPATIC, CREAT, CBC, ESR #### [address] Hemoglobin (Bld) [Mass/Vol] 12.4 g/dL Normal 11.8-15.4 [facility] Comment on above: Performed By: #### H EPATIC, CREAT, CBC, ESR #### [address] Lymphocytes (Bld) [#/Vol] 1.5 10*3/uL Normal 1.00-4.8 [facility] Comment on above: Performed By: #### H EPATIC, CREAT, CBC, ESR #### [address] Lymphocytes/100 WBC (Bld) 12.4 % Normal . [facility] Comment on above: Performed By: #### H EPATIC, CREAT, CBC, ESR #### [address] MCH (RBC) [Entitic mass] 31.0 pg Normal 24.7-34.3 [facility] Comment on above: Performed By: #### H EPATIC, CREAT, CBC, ESR #### [address] MCV (RBC) [Entitic vol] 93.2 fL Normal 80-100 [facility] Comment on above: Performed By: #### H EPATIC, CREAT, CBC, ESR #### [address] Mean Corpuscular HGB Conc 33.3 g/dL Normal 32.0-35.0 [facility] Comment on above: Performed By: #### H EPATIC, CREAT, CBC, ESR #### [address] Monocytes (Bld) [#/Vol] 0.9 10*3/uL High 0.0-0.8 [facility] Comment on above: Performed By: #### H EPATIC, CREAT, CBC, ESR #### [address] Monocytes/100 WBC (Bld) 7.2 % Normal . [facility] Comment on above: Performed By: #### H EPATIC, CREAT, CBC, ESR #### [address] Neutrophils (Bld) [#/Vol] 9.4 10*3/uL High 1.8-7.7 [facility] Comment on above: Performed By: #### H EPATIC, CREAT, CBC, ESR #### [address] Neutrophils/100 WBC (Bld) 78.1 % Normal . [facility] Comment on above: Performed By: #### H EPATIC, CREAT, CBC, ESR #### [address] NRBC% 0.0 /100{WBC} Normal 0-0.5 [facility] Comment on above: Performed By: #### H EPATIC, CREAT, CBC, ESR #### [address] Platelet mean volume (Bld) [Entitic vol] 8.4 fL Normal 6.3-10.7 [facility] Comment on above: Performed By: #### H EPATIC, CREAT, CBC, ESR #### [place] [address] [place] Platelets (Bld) [#/Vol] 220 10*3/uL Normal 150-450 [facility] Comment on above: Performed By: #### H EPATIC, CREAT, CBC, ESR #### [facility] [address] [place] [address] RBC (Bld) [#/Vol] 3.99 10*6/uL Normal 3.60-5.00 [facility] Comment on above: Performed By: #### H EPATIC, CREAT, CBC, ESR #### [facility] [address] [place] [address] WBC (Bld) [#/Vol] 12.0 10*3/uL High 3.8-11.6 [facility] Comment on above: Performed By: #### H EPATIC, CREAT, CBC, ESR #### [facility] [address] [place] [address] Creatinineon 11-03-2022 Creatinine [Mass/Vol] 0.80 mg/dL Normal 0.60-1.20 [facility] Comment on above: Performed By: #### H EPATIC, CREAT, CBC, ESR #### [address] GFR/1.73 sq M.predicted MDRD (S/P/Bld) [Vol rate/Area] mL/min/{1.73_m2} Normal [facility] Comment on above: Result Comment: PERF ORMED BY: [place] [address] PATHOLOGIST [employer]HE[employer]ICIAN [employer] ARTIST TAMERA DAO M.D. Performed By: #### H EPATIC, CREAT, CBC, ESR #### [facility] [address] [place] [address] Creatinine [Mass/volume] in Serum or PlasmaOrdered By: Kyle Calderon on 11-03-2022 Creatinine [Mass/Vol] 0.80 mg/dL 0.60-1.20 [facility] Eosinophils Auto (Bld) [#/Vo l]Ordered By: Kyle Calderon on 11-03-2022 Eosinophils (Bld) [#/Vol] 0.2 10*3/uL 0.0-0.45 [facility] Eosinophils/100 WBC Auto (Bl d)Ordered By: Kyle Calderon on 11-03-2022 Eosinophils/100 WBC (Bld) 1.4 % . [facility] Erythrocyte Sedimentation Ra moon 11-03-2022 ESR (Bld) [Velocity] 12 mm/h Normal 0-29 [facility] Comment on above: Result Comment: PERF ORMED BY: [facility] [address] [facility] [place] [address] PATHOLOGIST ESTHETICIAN MAKE[employer] ARTIST TAMERA DAO M.D. Performed By: #### H EPATIC, CREAT, CBC, ESR #### [facility] [address] Erythrocyte distribution wid th Auto (RBC) [Ratio]Ordered By: Kyle Calderon on 11-03-2022 Erythrocyte distribution width (RBC) [Ratio] 14.6 % 11.9-15.3 [facility] Erythrocyte sedimentation ra te by Photometric methodOrdered By: Kyle Calderon on 11-03-2022 ESR Photometric method (Bld) [Velocity] 12 mm/hr 0-29 [facility] Globulin Calc (S) [Mass/Vol] Ordered By: Kyle Calderon on 11-03-2022 Globulin (S) [Mass/Vol] 2.2 g/dL [facility] Hematocrit Auto (Bld) [Volum e fraction]Ordered By: Kyle Calderon on 11-03-2022 Hematocrit (Bld) [Volume fraction] 37.2 % 34.0-46.4 [facility] Hemoglobin [Mass/volume] in BloodOrdered By: Kyle Calderon on 11-03-2022 Hemoglobin (Bld) [Mass/Vol] 12.4 g/dL 11.8-15.4 [facility] Hepatic Panelon 11-03-2022 Albumin [Mass/Vol] 4.0 g/dL Normal 3.5-5.7 [facility] Comment on above: Performed By: #### H EPATIC, CREAT, CBC, ESR #### [facility] [address] Albumin/Globulin [Mass ratio] 1.8 {ratio} Normal [facility] Comment on above: Performed By: #### H EPATIC, CREAT, CBC, ESR #### [facility] [address] ALP [Catalytic activity/Vol] 95 U/L Normal 34-104 [facility] Comment on above: Performed By: #### H EPATIC, CREAT, CBC, ESR #### [facility] [address] ALT [Catalytic activity/Vol] 41 U/L Normal 7-52 [facility] Comment on above: Performed By: #### H EPATIC, CREAT, CBC, ESR #### [address] AST [Catalytic activity/Vol] 17 U/L Normal 13-39 [facility] Comment on above: Performed By: #### H EPATIC, CREAT, CBC, ESR #### [facility] [address] [place] [address] Bilirubin [Mass/Vol] 0.7 mg/dL Normal 0.3-1.0 [facility] Comment on above: Performed By: #### H EPATIC, CREAT, CBC, ESR #### [address] Bilirubin,Indirect 0.6 mg/dL Normal [facility] Comment on above: Performed By: #### H EPATIC, CREAT, CBC, ESR #### [facility] [address] [place] [address] Bilirubin.indirect [Mass/Vol] 0.10 mg/dL Normal 0.03-0.18 [facility] Comment on above: Performed By: #### H EPATIC, CREAT, CBC, ESR #### [facility] [address] [place] [address] Globulin (S) [Mass/Vol] 2.2 g/dL Normal [facility] Comment on above: Performed By: #### H EPATIC, CREAT, CBC, ESR #### [place] [address] [place] Protein [Mass/Vol] 6.2 g/dL Low 6.4-8.9 [facility] Comment on above: Performed By: #### H EPATIC, CREAT, CBC, ESR #### [facility] [address] Leukocytes [#/volume] correc edd for nucleated erythrocytes in Blood by Automated counOrdered By: Kyle Calderon on 11-03-2022 WBC corrected for nucl RBC Auto (Bld) [#/Vol] 12.0 10*3/uL 3.8-11.6 [facility] Lymphocytes Auto (Bld) [#/Vo l]Ordered By: Kyle Calderon on 11-03-2022 Lymphocytes (Bld) [#/Vol] 1.5 10*3/uL 1.00-4.8 [facility] Lymphocytes/100 WBC Auto (Bl d)Ordered By: Kyle Calderon on 11-03-2022 Lymphocytes/100 WBC (Bld) 12.4 % . [facility] MCH Auto (RBC) [Entitic mass ]Ordered By: Kyle Calderon on 11-03-2022 MCH (RBC) [Entitic mass] 31.0 pg 24.7-34.3 [facility] MCHC Auto (RBC) [Mass/Vol]Or dered By: Kyle Calderon on 11-03-2022 MCHC (RBC) [Mass/Vol] 33.3 g/dL 32.0-35.0 [facility] MCV Auto (RBC) [Entitic vol] Ordered By: Kyle Calderon on 11-03-2022 MCV (RBC) [Entitic vol] 93.2 fL 80-100 [facility] Monocytes Auto (Bld) [#/Vol] Ordered By: Kyle Calderon on 11-03-2022 Monocytes (Bld) [#/Vol] 0.9 10*3/uL 0.0-0.8 [facility] Monocytes/100 WBC Auto (Bld) Ordered By: Kyle Calderon on 11-03-2022 Monocytes/100 WBC (Bld) 7.2 % . [facility] Neutrophils Auto (Bld) [#/Vo l]Ordered By: Kyle Calderon on 11-03-2022 Neutrophils (Bld) [#/Vol] 9.4 10*3/uL 1.8-7.7 [facility] Neutrophils/100 WBC Auto (Bl d)Ordered By: Kyle Calderon on 11-03-2022 Neutrophils/100 WBC (Bld) 78.1 % . [facility] No Panel InformationOrdered By: Kyle Calderon on 11-03-2022 Estimated GFR (CKD-EPI) > 60.0 mL/Min [facility] Creatinine Clearance (Chem N/A [facility] Nucleated erythrocytes [Pres ence] in Blood by Automated countOrdered By: Kyle Calderon on 11-03-2022 Nucleated RBC Auto Ql (Bld) 0.0 /100{WBC} 0-0.5 [facility] Platelet mean volume Auto (B ld) [Entitic vol]Ordered By: Kyle Calderon on 11-03-2022 Platelet mean volume (Bld) [Entitic vol] 8.4 fL 6.3-10.7 [facility] Platelets Auto (Bld) [#/Vol] Ordered By: Kyle Calderon on 11-03-2022 Platelets (Bld) [#/Vol] 220 10*3/uL 150-450 [facility] Protein [Mass/volume] in Ser um or PlasmaOrdered By: Kyle Calderon on 11-03-2022 Protein [Mass/Vol] 6.2 g/dL 6.4-8.9 [facility] RBC Auto (Bld) [#/Vol]Ordere d By: Kyle Calderon on 11-03-2022 RBC (Bld) [#/Vol] 3.99 10*6/uL 3.60-5.00 [facility] Serum or plasma albumin/glob ulin mass ratioOrdered By: Kyle Calderon on 11-03-2022 Albumin/Globulin [Mass ratio] 1.8 {ratio} [facility] Serum or plasma non-glucuron idated bilirubin measurement (mass/volume)Ordered By: Kyle Calderon on 11-03-2022 Bilirubin.indirect [Mass/Vol] 0.6 mg/dL [facility] WBC Auto (Bld) [#/Vol]Ordere d By: Kyle Calderon on 11-03-2022 WBC (Bld) [#/Vol] 12.0 10*3/uL 3.8-11.6 [facility] XR pelvis 1-2Von 09-29-2022 XR pelvis 1-2V [facility] [employer] Other XR pelvis 1-2V [facility] [employer] Other XR pelvis 1-2V [address] [place] [address] [employer] Other XR pelvis 1-2[place] [address] No rt [employer] Other XR pelvis 1-2V XRay Report [employer] Other XR pelvis 1-2V Signed [employer] Other XR pelvis 1-2V Patient: Laly Phillips MR#: [id number] [employer] Other XR pelvis 1-2V 03 [employer] Other XR pelvis 1-2V : 1965 Acct:[id number] [employer] Other XR pelvis 1-2V Age/Sex: 57 / F ADM Date: 09/29/22 [employer] Other XR pelvis 1-2V Loc: SOXD Room: Type : [facility] [employer] Other XR pelvis 1-2V Attending Dr: Kyle Call II, MD [employer] Other XR pelvis 1-2V Copies to: Kyle Call MD [employer] Other XR pelvis 1-2V Ordering Provider: Kyle Call MD [employer] Other XR pelvis 1-2V Date of Service: 09/29/22 [employer] Other XR pelvis 1-2V XR/XR pelvis 1-2V: S32.591D [employer] Other XR pelvis 1-2V Pelvis 3 views. [employer] Other XR pelvis 1-2V CLINICAL HISTORY: Right superior/inferior pubic rami fractures [employer] Other XR pelvis 1-2V COMPARISON: Pelvis study 07/07/2022 [employer] Other XR pelvis 1-2V Examination is suboptimal due to body habitus. [employer] Other XR pelvis 1-2V The patient's right-sided pubic rami fractures are less conspicuous when compared to the prior study [employer] Other XR pelvis 1-2V with questionable calculus formation along the inferior pubic ramus fracture suggestive of healing [employer] Other XR pelvis 1-2V response. No change in alignment is seen. No new additional fractures are noted. Mild degenerative [employer] Other XR pelvis 1-2V changes are noted involving the hips and SI joints. [employer] Other XR pelvis 1-2V XR/XR pelvis 1-2V [employer] Other XR pelvis 1-2V IMPRESSION: [facility] [employer] Other XR pelvis 1-2V HEALING PUBIC RAMI FRACTURES. [employer] Other XR pelvis 1-2V Impression dictated by: Lorenzo Coker Jr.OReilly09/29/2022 9:46 AM [employer] Other XR pelvis 1-2V Dictation Location: [place] [address] [employer] Other XR pelvis 1-2V Transcribed By: VASILE 09/29/22 0946 [employer] Other XR pelvis 1-2V Dictated By: Kavon Choi Jr, DO 09/29/22 0944 [employer] Other XR pelvis 1-2V Signed By: [employer] Other XR pelvis 1-2V 09/29/22 0946 [employer] Other MR hip RT wo conon 3 MR hip RT wo con [facility] [employer] Other MR hip RT wo con [facility] [place] No rt [employer] Other MR hip RT wo con [address] [facility] [employer] Other [place] [address] [employer] Other MR hip RT wo con MRI Report [employer] Other MR hip RT wo con Signed [employer] Other MR hip RT wo con Patient: Laly Phillips MR#: [id number] [employer] Other MR hip RT wo con 03 [employer] Other MR hip RT wo con : 1965 Acct:[id number] [employer] Other MR hip RT wo con Age/Sex: 57 / F ADM Date: 07/27/22 [employer] Other MR hip RT wo con Loc: ICMR Room: Type : [facility] [employer] Other MR hip RT wo con Attending Dr: Kyle Call II, MD [employer] Other MR hip RT wo con Copies to: Kyle Call MD [employer] Other MR hip RT wo con Ordering Provider: Kyle Call MD [employer] Other MR hip RT wo con Date of Service: 07/27/22 [employer] Other MR hip RT wo con MR/MR hip RT wo con: S32.591A CLOSED FX RAMUS OF RIGHT PUBUS [employer] Other MR hip RT wo con MRI of the right hip without IV contrast. [employer] Other MR hip RT wo con Reason for exam: History of right inferior pubic ramus fracture. Right hip pain. [employer] Other MR hip RT wo con COMPARISON: Pelvis 07/07/2022 [employer] Other MR hip RT wo con FINDINGS: Minimal joint effusion is seen. There appears to be a fractures involving the right [employer] Other MR hip RT wo con superior and inferio r pubic ramus with associated bone marrow edema. No significant displacement of [employer] Other MR hip RT wo con these fractures are seen. Labrum appears grossly intact. No hip fracture is seen. Muscle groups [employer] Other MR hip RT wo con appear grossly unremarkable. Visualized intrapelvic contents demonstrate no acute findings. [employer] Other MR hip RT wo con MR/MR hip RT wo con [employer] Other MR hip RT wo con IMPRESSION: Nondisplaced fractures involving the right superior and inferior pubic ramus with [employer] Other MR hip RT wo con associated bone marrow edema. [employer] Other MR hip RT wo con Impression dictated by: Kavon Choi Jr., D.O.07/27/2022 11:43 AM [employer] Other MR hip RT wo con Dictation Location: [place] [address] [employer] Other MR hip RT wo con Transcribed By: VASILE 07/27/22 1143 [employer] Other MR hip RT wo con Dictated By: Kavon Choi Jr, DO 07/27/22 1140 [employer] Other MR hip RT wo con Signed By: [employer] [facility] [employer] Other MR hip RT wo con 07/27/22 1143 [employer] Other XR pelvis 1-2Von 07-07-2022 XR pelvis 1-2V [facility] [employer] Other XR pelvis 1-2V [facility] Main [facility] [employer] Other XR pelvis 1-2V [address] [place] [address] [employer] Other XR pelvis 1-2[place] [address] No rt [employer] Other XR pelvis 1-2V XRay Report [employer] Other XR pelvis 1-2V Signed [employer] Other XR pelvis 1-2V Patient: Laly Phillips MR#: [id number] [employer] Other XR pelvis 1-2V 03 [employer] Other XR pelvis 1-2V : 1965 Acct:[id number] [employer] Other XR pelvis 1-2V Age/Sex: 57 / F ADM Date: 07/07/22 [employer] Other XR pelvis 1-2V Loc: SOXD Room: Type : [facility] [employer] Other XR pelvis 1-2V Attending Dr: Kyle Call II, MD [employer] Other XR pelvis 1-2V Copies to: Kyle Call MD [employer] Other XR pelvis 1-2V Ordering Provider: Kyle Call MD [employer] Other XR pelvis 1-2V Date of Service: 07/07/22 [employer] Other XR pelvis 1-2V XR/XR hip RT min 2V(w/wo pelvis)*: PAIN [employer] Other XR pelvis 1-2V ([id number]) XR/XR pelvis 1-2V: PAIN [employer] Other XR pelvis 1-2V 2 views right hip single view pelvisplain film [employer] Other XR pelvis 1-2V COMPARISON:None [employer] Other XR pelvis 1-2V HISTORY:Status post right pubic rami fracture. Right hip pain [employer] Other XR pelvis 1-2V The nondisplaced right inferior pubic ramus fracture redemonstrated. Bony alignment unchanged. No [employer] Other XR pelvis 1-2V hip fracture. Adequate hip joint space.No significant degeneration. Articular surfaces preserved. [employer] Other XR pelvis 1-2V XR/XR hip RT min 2V(w/wo pelvis)* [employer] Other XR pelvis 1-2V IMPRESSION:Unchanged right inferior pubic ramus fracture. No hip fracture. [employer] Other XR pelvis 1-2V 2 views of the pelvis [employer] Other XR pelvis 1-2V Nondisplaced right inferior pubic ramus fracture identified. No additional fractures seen. No [employer] Other XR pelvis 1-2V diastases of the SI joints. Hip joint space is adequate. No hip fracture. [employer] Other XR pelvis 1-2V IMPRESSION: Nondisplaced right inferior pubic ramus fracture. [employer] Other XR pelvis 1-2V Impression dictated by: Ceasar Angeles M.D.07/07/2022 5:19 PM [employer] Other XR pelvis 1-2V Dictation Location: [facility] [employer] Other XR pelvis 1-2V Transcribed By: PWS 07/07/22 1718 [employer] Other XR pelvis 1-2V Dictated By: Ceasar Angeles DO 07/07/22 1712 [employer] Other XR pelvis 1-2V Signed By: [employer] Other XR pelvis 1-2V 07/07/22 2391 [employer] Other [facility]on [facility]17 SARS-CoV-2 (COVID-19) RNA NANCY+probe Ql (Unsp spec) Detected Critically abnormal NOT DETECTED [facility] Comment on above: Result Comment: This test is not yet approved or cleared by the [place] FDA. When there are no FDA-approved or cleared tests available, and other criteria are met, FDA can make tests available under an emergency access mechanism called an Emergency Use Authorization (EUA). The EUA for this test is supported by the [employer] Boxer of Health and Human Service's (HHS's) declaration [...] used). Performed By: #### C VDTB #### [facility] [address] [place] [address] Dr. Heather Khan INFLUENZA A AND B AGon 06-30 INFLUANEGH SEE BELOW Normal [facility] Comment on above: Result Comment: Nega tive for Flu A protein angiten. Infection due to Flu A cannot be ruled out. Flu A angiten in the sample may be below the detection limit of the test. Performed By: #### I NFLUAB #### [facility] [address] [place] [address] Dr. Heather Khan [facility] SEE BELOW Normal [facility] Comment on above: Result Comment: Nega tive for Flu B protein antigen. Infection due to Flu B cannot be ruled out. Flu B antigen in the sample may be below the detection limit of the test. Performed By: #### I NFLUAB #### [facility] [address] [place] [address] [address] Heather Khan INFLUENZA A AG Negative Normal NEGATIVE SEE COMMENT [facility] Comment on above: Performed By: #### I NFLUAB #### [facility] [address] [place] [address] Dr. Heather Khan INFLUENZA B AG Negative Normal NEGATIVE SEE COMMENT [facility] Comment on above: Performed By: #### I NFLUAB #### [facility] [address] [place] [address] Dr. Heather Khan INTERNAL CONTROLS Within Normal Limits Normal Wi thin Normal Limits [facility] Comment on above: Performed By: #### I NFLUAB #### [facility] [address] [place] [address] Dr. Heather Khan CULTURE WOUNDon 05-22-2022 CULTURE [...] <=0.25 S F Normal [facility] Comment on above: Performed By: #### W OUNDCX #### [facility] [address] [place] [address] [address] Heather Khan Office Visit (Cardiology)on 03-18-2022 [...] Recorded: 18Mar2022 08:56AM Heart Rate78, R Radial [id number], LUE, Sitting Qwfibqqdi20, LUE, Sitting Height5 ft 1 in [id number] lb 4 oz BMI Avwnhtrcio37.69 kg/m2 BSA Calculated2.01 Tobacco Useb) No PHQ-2 [...] skin turgor (more content not included)... Normal [employer] Tobacco Screening.on Adult depression screening assessment No [facility]-Reynolds 250 DO Work Phone: Tobacco use status CPHS b) No [facility] Heart-Leandro 250 DO Work Phone: XR HIP LT [...] Date: 2022-03-01 09:02 Normal [facility] Body fluid albumin measureme nt (mass/volume)Ordered By: Kyle Calderon on 02-22-2022 Albumin (Body fld) [Mass/Vol] 3.6 g/dL 3.2-5.5 [facility] Direct bilirubin measurement Ordered By: Kyle Calderon on 02-22-2022 Bilirubin.direct [Mass/Vol] 0.1 mg/dL 0.0-0.4 [facility] Globulin Calc (S) [Mass/Vol] Ordered By: Kyle Calderon on 02-22-2022 Globulin (S) [Mass/Vol] 3.0 g/dL [facility] Protein [Mass/volume] in Ser um or PlasmaOrdered By: Kyle Calderon on 02-22-2022 Protein [Mass/Vol] 6.6 g/dL 6.1-7.9 [facility] Serum or plasma alanine gilbert otransferase measurement without P-5'-P (enzymatic activiOrdered By: Kyle Calderon on 02-22-2022 ALT No additional P-5'-P [Catalytic activity/Vol] 26 U/L 10-60 [facility] Serum or plasma albumin/glob ulin mass ratioOrdered By: Kyle Calderon on 02-22-2022 Albumin/Globulin [Mass ratio] 1.2 {ratio} [facility] Serum or plasma alkaline steven sphatase measurement (enzymatic activity/volume)Ordered By: Kyle Calderon on 02-22-2022 ALP [Catalytic activity/Vol] 74 U/L 32-92 [facility] Serum or plasma aspartate am inotransferase measurement (enzymatic activity/volume)Ordered By: Kyle Calderon on 02-22-2022 AST [Catalytic activity/Vol] 24 U/L 10-42 [facility] Serum or plasma non-glucuron idated bilirubin measurement (mass/volume)Ordered By: Kyle Calderon on 02-22-2022 Bilirubin.indirect [Mass/Vol] 0.1 mg/dL [facility] Serum or plasma total biliru bin measurement (mass/volume)Ordered By: Kyle Calderon on 02-22-2022 Bilirubin [Mass/Vol] 0.2 mg/dL 0.3-1.2 [facility] Basophils Auto (Bld) [#/Vol] Ordered By: Kyle Calderon on 02-10-2022 Basophils (Bld) [#/Vol] 0.1 10*3/uL 0.0-0.2 [facility] Basophils/100 WBC Auto (Bld) Ordered By: Kyle Calderon on 02-10-2022 Basophils/100 WBC (Bld) 0.6 % . [facility] Blood hemoglobin measurement (mass/volume)Ordered By: Kyle Calderon on 02-10-2022 Hemoglobin (Bld) [Mass/Vol] 11.9 g/dL 11.8-15.4 [facility] Blood leukocytes automated c ount (number/volume)Ordered By: Kyle Calderon on 02-10-2022 WBC (Bld) [#/Vol] 11.4 10*3/uL 4.5-11.0 [facility] Creatinine and Glomerular fi ltration rate.predicted panel (S/P/Bld)Ordered By: Kyle Calderon on 02-10-2022 Creatinine [Mass/Vol] 0.93 mg/dL 0.44-1.03 [facility] Eosinophils Auto (Bld) [#/Vo l]Ordered By: Kyle Calderon on 02-10-2022 Eosinophils (Bld) [#/Vol] 0.2 10*3/uL 0.0-0.45 [facility] Eosinophils/100 WBC Auto (Bl d)Ordered By: Kyle Calderon on 02-10-2022 Eosinophils/100 WBC (Bld) 1.8 % . [facility] Erythrocyte distribution wid th Auto (RBC) [Ratio]Ordered By: Kyle Calderon on 02-10-2022 Erythrocyte distribution width (RBC) [Ratio] 14.0 % 11.9-15.3 [facility] Erythrocyte sedimentation ra te by Photometric methodOrdered By: Kyle Calderon on 02-10-2022 ESR Photometric method (Bld) [Velocity] 30 mm/hr 0-29 [facility] Estimated glomerular filtrat ion rate (GFR) non- AmericanOrdered By: Kyle Calderon on 02-10-2022 GFR/1.73 sq M.predicted among non-blacks MDRD (S/P/Bld) [Vol rate/Area] > 60 mL/Min [facility] Hematocrit Auto (Bld) [Volum e fraction]Ordered By: Kyle Calderon on 02-10-2022 Hematocrit (Bld) [Volume fraction] 35.9 % 34.0-46.4 [facility] Hepatitis A virus Ab [Presen ce] in Serum by ImmunoassayOrdered By: Kyle Calderon on 02-10-2022 HAV Ab IA Ql (S) Negative Negative [facility] Comment on above: Performed at: [address] [id number] Home Attendant: Thompson Osullivan PhD, Phone: [phone] Hepatitis B virus surface Ag [Presence] in Serum or Plasma by ImmunoassayOrdered By: Kyle Calderon on 02-10-2022 HBV surface Ag IA Ql Negative Negative [facility] - Hematology and Cell countsOrdered By: Kyle Calderon on 02-10-2022 Nucleated RBC/100 WBC (Bld) [Ratio] 0.1 % 0-0.5 [facility] Lymphocytes Auto (Bld) [#/Vo l]Ordered By: Kyle Calderon on 02-10-2022 Lymphocytes (Bld) [#/Vol] 1.5 10*3/uL 1.00-4.8 [facility] Lymphocytes/100 WBC Auto (Bl d)Ordered By: Kyle Calderon on 02-10-2022 Lymphocytes/100 WBC (Bld) 13.0 % . [facility] MCH Auto (RBC) [Entitic mass ]Ordered By: Kyle Calderon on 02-10-2022 MCH (RBC) [Entitic mass] 30.1 pg 24.7-34.3 [facility] MCHC Auto (RBC) [Mass/Vol]Or dered By: Kyle Calderon on 02-10-2022 MCHC (RBC) [Mass/Vol] 33.1 g/dL 32.0-35.0 [facility] MCV Auto (RBC) [Entitic vol] Ordered By: Kyle Calderon on 02-10-2022 MCV (RBC) [Entitic vol] 91.1 fL 80-100 [facility] Monocytes Auto (Bld) [#/Vol] Ordered By: Kyle Calderon on 02-10-2022 Monocytes (Bld) [#/Vol] 0.6 10*3/uL 0.0-0.8 [facility] Monocytes/100 WBC Auto (Bld) Ordered By: Kyle Calderon on 02-10-2022 Monocytes/100 WBC (Bld) 5.3 % . [facility] Neutrophils Auto (Bld) [#/Vo l]Ordered By: Kyle Calderon on 02-10-2022 Neutrophils (Bld) [#/Vol] 9.0 10*3/uL 1.8-7.7 [facility] Neutrophils/100 WBC Auto (Bl d)Ordered By: Kyle Calderon on 02-10-2022 Neutrophils/100 WBC (Bld) 79.3 % . [facility] No Panel InformationOrdered By: Kyle Calderon on 02-10-2022 Estimated GFR () > 60 mL/Min [facility] Comment on above: GFR estimated refere nce range: According to KDOQI guidelines, <60 ml/min/1.73m2 is sufficient to diagnose a patient with chronic kidney disease. Hepatitis B Core Total Antibody Negative Negative [facility] Hepatitis C Interpretation See comment . [facility] Comment on above: Negative Not infected with HCV, unless recent infection is suspected or other evidence exists to indicate HCV infection. Hepatitis C RNA Quantitative N/A [facility] Creatinine Clearance (Chem N/A [facility] [facility] mean volume Auto (B ld) [Entitic vol]Ordered By: yKle Calderon on 02-10-2022 Platelet mean volume (Bld) [Entitic vol] 8.2 fL 6.3-10.7 [facility] Platelets Auto (Bld) [#/Vol] Ordered By: Kyle Calderon on 02-10-2022 Platelets (Bld) [#/Vol] 272 10*3/uL 150-450 [facility] RBC Auto (Bld) [#/Vol]Ordere d By: Kyle Calderon on 02-10-2022 RBC (Bld) [#/Vol] 3.95 10*6/uL 3.60-5.00 [facility] Serum hepatitis B virus surf lakes[place]ia antibody detectionOrdered By: Kyle Calderon on 02-10-2022 HBV surface Ab Ql (S) Non-Reactive . F [facility] Comment on above: Non Reactive: Incons istent with immunity, less than 10 mIU/mL Reactive: Consistent with immunity, greater than 9.9 mIU/mL Serum or plasma hepatitis C virus antibody signal/cutoff ratio by immunoassay (relatiOrdered By: Kyle Calderon on 02-10-2022 HCV Ab Signal/Cutoff IA [Rel units/Vol] 0.1 s/co ratio 0.0-0.9 [facility] MUGA SCAN INJECTIONon [facility] MUGA SCAN INJECTION Patient Name: FELICITY PHILLIPS STUDY: MUGA Performing facility: [facility], [address] [place] [address], [address], [address] Provider: Amanuel Valladares RN, CHECKERING MACHINE ADJUSTER PCP: Dr. Lorenzo Garza Supervising provider: Yanet Sommer MD INDICATION: SOB; Non-ischemic cardiomyopathy HISTORY: Gender: F; Age: 55 y/o ; Height: 154.94 cm; Weight: 213.3362971 kg. HTN; SOB; Quit smoking unknown years ago. Cardiac catheterization on 2016. COMPARISON: Previous nuclear testing completed [id number] at [facility]. Previous echo testing completed [id number] at [facility]. ACCESSION NUMBER(S): [id number]; [id number] ORDERING CLINICIAN: AMANUEL VALLADARES TECHNIQUE: The patient [...] Electronically signed by: YANET SOMMER MD Normal [facility] Echocardiogramon 09-04-2020 Echocardiography [facility] [address] [place] [address], [address], [place] [address] TRANSTHORACIC ECHOCARDIOGRAM REPORT Patient Name: FELICITY PHILLIPS Reading Physician: [id number] Jose Carlos Hernandez Study Date: 09/04/2020 Referring Physician: [id number] AMANUEL VALLADARES MRN/PID: [id number] PCP: Jose Antonio Garza Accession/Order#: [id number] Department Location: [facility] Date of : 1965 Fellow: Gender: F Nurse: Nyasia Cain RN Admit Date: Manager Electrical: Judy Rocha RDCS, RVT Height: 154.94 cm CC Report to: Weight: 104.78 kg Study Type: Echocardiogram BSA: 2.01 m2 Blood Pressure: 128 /68 mmHg Diagnosis/ICD: I42.8-Other cardiomyopathies; R06.02-Shortness of breath Indication: HTN, CHARBEL, Former Smoker, Morbid Obesity Procedure/CPT: Echo Complete w Full [id number] Study Detail: The following Echo studies were [...] mmHg PIEDV: 1.78 m/s PADP: 15.7 mmHg [id number] Jose Carlos Hernandez DO Electronically signed on 09/04/2020 at 4:00:50 PM Final Normal [facility] OBSOLETEon 08-02-2018 OBSOLETE Refill (ADELA) FELICITY PHILLIPS ([id number]) 1965 F Date Time Provider Department 08/02/18 CEASAR CUNHA During your visit today, we recorded the following information about you: Maye Diony 08/02/2018 9:23 AM Signed Pharmacy verified in Epic Patient has been identified by name and date of : Yes Prescription must be called to the pharmacy (non-escript). [facility] phone [phone]. Please call patient after medication has been [...] lb) Not applicable Please advise. Maye Amaral APRN.CHECKERING MACHINE ADJUSTER 08/03/2018 9:25 AM Signed We have no [...] copy of the labs. Thanks, Brandie Amaral APRN.CHECKERING MACHINE ADJUSTER Allergies As of Date: 08/02/2018 Noted Allergy [...] Status:Closed by BRANDIE AMARAL CNP on 08/03/18 Normal [facility] CNOVon 05-30-2018 CNOV Office Visit (CARDFT ) FELICITY PHILLIPS ([id number]) 1965 F Date Time Provider Department 05/30/18 9:30 AM CEASAR CUNHA During your visit today, we recorded the following information about you: Pulse Blood pressure Weight Height 82/minute 142/80 105.1 kg 1.524 m Ceasar Cunha MD 05/30/2018 9:42 AM [facility] [place] Nataly Rodriguez Department of Cardiovascular Medicine OUTPATIENT VISIT DATE 05/30/18 OUTPATIENT VISIT TYPE ESTABLISHED PRIMARY CARE PHYSICIAN: Jose Antonio Garza MD [address] [place] [phone] CHIEF COMPLAINT: Patient presents with: Follow Up [...] she had a hospitalization at [facility] which led to transfer to [facility]. She had a cardiac catheterization performed which [...] T-wave changes. The patient was sent to [place] emergency room where she was evaluated and eventually transferred to [facility] where she underwent a cardiac catheterization which [...] her echocardiogram noted above. Cardiac catheterization at [facility] in January 2017 revealed normal coronary arteries and a mild to moderate reduction in left ventricular ejection fraction at 40%. The LVEDP was elevated at 20-25 mmHg. A 2-D echocardiogram performed at [facility] in January 2017 revealed a left ventricular [...] U.S. Mail. This document was generated utilizing SPORTLOG[employer] dictation. I have reviewed and verified that the contents of the document are accurate with the exception of minor grammatical, spelling and punctuation errors. CONTACT INFORMATION: Thank you for allowing us to participate in the care of this very pleasant patient. Please free to contact us if we can be of any further assistance. Ceasar Cunha MD, [facility] Nataly Rodriguez Department of Cardiovascular Medicine [facility] [place] At [address] [address] Office: [phone] Referring Provider: JOSE ANTONIO GARZA [[id number]] Allergies As of Date: 05/30/2018 Noted Allergy [...] by JENNY CUNHA MD on 05/30/18 Normal [facility] PROGRESSon 05-30-2018 Protein mass conc HNO ID: [id number] Author: Ceasar Cunha Service: (none) Author Type: Physician Type: Progress Notes Filed: 05/30/2018 9:42 AM Note Text: [facility] [place] Naatly Rodriguez Department of Cardiovascular Medicine OUTPATIENT VISIT DATE 05/30/18 OUTPATIENT VISIT TYPE ESTABLISHED PRIMARY CARE PHYSICIAN: Jose Antonio Garza MD [address] [place] [phone] CHIEF COMPLAINT: Patient presents with: Follow Up [...] she had a hospitalization at [facility] which led to transfer to [facility]. She had a cardiac catheterization performed which [...] T-wave changes. The patient was sent to [place] emergency room where she was evaluated and eventually transferred to [facility] where she underwent a cardiac catheterization which [...] her echocardiogram noted above. Cardiac catheterization at [facility] in January 2017 revealed normal coronary arteries and a mild to moderate reduction in left ventricular ejection fraction at 40%. The LVEDP was elevated at 20-25 mmHg. A 2-D echocardiogram performed at [facility] in January 2017 revealed a left ventricular [...] U.S. Mail. This document was generated utilizing [employer] dictation. I have reviewed and verified that the contents of the document are accurate with the exception of minor grammatical, spelling and punctuation errors. CONTACT INFORMATION: Thank you for allowing us to participate in the care of this very pleasant patient. Please free to contact us if we can be of any further assistance. Ceasar Cunha MD, [facility] Nataly Rodriguez Department of Cardiovascular Medicine [facility] [place] At [facility] [address], [place] [address] Office: [phone] Normal [facility] CNOVon 01-30-2018 CNOV Office Visit (CARDFT ) FELICITY PHILLIPS ([id number]) 1965 F Date Time Provider Department 01/30/18 10:30 AM CEASAR CUNHA During your visit today, we recorded the following information about you: Pulse Respiration Blood pressure Weight 69/minute 16/minute 133/74 102.1 kg Ceasar Cunha MD 01/30/2018 11:03 AM [facility] [place] Nataly Rodriguez Department of Cardiovascular Medicine OUTPATIENT VISIT DATE 01/30/18 OUTPATIENT VISIT TYPE ESTABLISHED PRIMARY CARE PHYSICIAN: Jose Antonio Garza MD [address] [facility] [phone] CHIEF COMPLAINT: Patient presents with: Follow Up [...] she had a hospitalization at [facility] which led to transfer to [facility]. She had a cardiac catheterization performed which [...] T-wave changes. The patient was sent to [place] emergency room where she was evaluated and eventually transferred to [facility] where she underwent a cardiac catheterization which [...] her echocardiogram noted above. Cardiac catheterization at [facility] in January 2017 revealed normal coronary arteries and a mild to moderate reduction in left ventricular ejection fraction at 40%. The LVEDP was elevated at 20-25 mmHg. A 2-D echocardiogram performed at [facility] in January 2017 revealed a left ventricular [...] U.S. Mail. This document was generated utilizing Graite[employer] dictation. I have reviewed and verified that the contents of the document are accurate with the exception of minor grammatical, spelling and punctuation errors. CONTACT INFORMATION: Thank you for allowing us to participate in the care of this very pleasant patient. Please free to contact us if we can be of any further assistance. Ceasar Cunha MD, [facility] Kyle and Danna Rodriguez Department of Cardiovascular Medicine [facility] [place] [address] Office: [phone] Referring Provider: JOSE ANTONIO GARZA [[id number]] Allergies As of Date: 01/30/2018 Noted Allergy [...] by JENNY CUNHA MD on 01/30/18 Normal [facility] PROGRESSon 01-30-2018 Protein mass conc HNO ID: [id number] Author: Ceasar Cunha Service: (none) Author Type: Physician Type: Progress Notes Filed: 01/30/2018 11:03 AM Note Text: [facility] [place] Nataly Rodriguez Department of Cardiovascular Medicine OUTPATIENT VISIT DATE 01/30/18 OUTPATIENT VISIT TYPE ESTABLISHED PRIMARY CARE PHYSICIAN: Jose Antonio Garza MD [address] [facility] [phone] CHIEF COMPLAINT: Patient presents with: Follow Up [...] she had a hospitalization at [facility] which led to transfer to [facility]. She had a cardiac catheterization performed which [...] T-wave changes. The patient was sent to [place] emergency room where she was evaluated and eventually transferred to [facility] where she underwent a cardiac catheterization which [...] her echocardiogram noted above. Cardiac catheterization at [facility] in January 2017 revealed normal coronary arteries and a mild to moderate reduction in left ventricular ejection fraction at 40%. The LVEDP was elevated at 20-25 mmHg. A 2-D echocardiogram performed at [facility] in January 2017 revealed a left ventricular [...] U.S. Mail. This document was generated utilizing SPORTLOGiQ dictation. I have reviewed and verified that the contents of the document are accurate with the exception of minor grammatical, spelling and punctuation errors. CONTACT INFORMATION: Thank you for allowing us to participate in the care of this very pleasant patient. Please free to contact us if we can be of any further assistance. Ceasar Cunha MD, [facility] and Danna Rodriguez Department of Cardiovascular Medicine [facility] [place] [address] Office: [phone] Normal [facility] Vital Signs Date Time Vital Sign Value Performing Clinician Facility 11-10-2023 14:38-0400 Body height 154.9 cm Amanuel Valladares WEDDING DESIGNER-CHECKERING MACHINE ADJUSTER Work Phone: [facility] 11-10-2023 14:38-0400 Body mass index (BMI) [Ratio] 40.43 kg/m2 Amanuel Valladares WEDDING DESIGNER-CHECKERING MACHINE ADJUSTER Work Phone: [facility] 11-10-2023 14:38-0400 Body weight 97.07 kg Amanuel Valladares WEDDING DESIGNER-CHECKERING MACHINE ADJUSTER Work Phone: [facility] 11-10-2023 14:38-0400 Diastolic blood pressure 92 mm[Hg] Amanuel Valladares WEDDING DESIGNER-CHECKERING MACHINE ADJUSTER Work Phone: [facility] 11-10-2023 14:38-0400 Heart rate 69 /min Amanuel Valladares APRN-CHECKERING MACHINE ADJUSTER Work Phone: [facility] 11-10-2023 14:38-0400 Systolic blood pressure 138 mm[Hg] Amanuel Valladares WEDDING DESIGNER-CHECKERING MACHINE ADJUSTER Work Phone: [facility] 05-31-2023 23:54-0500 Diastolic blood pressure 80 mm[Hg] MD Jose Antonio Garza Work Phone: [facility] 05-31-2023 23:54-0500 Systolic blood pressure 178 mm[Hg] MD Jose Antonio Garza Work Phone: [facility] 05-31-2023 21:57-0500 Body height 152.4 cm MD Jose Antonio Garza Work Phone: [facility] 05-31-2023 21:57-0500 Body temperature 98.9 [degF] MD Jose Antonio Garza Work Phone: [facility] 05-31-2023 21:57-0500 Body weight 102.65 kg MD Jose Antonio Garza Work Phone: [facility] 05-31-2023 21:57-0500 Heart rate 98 /min MD Jose Antonio Garza Work Phone: [facility] 05-31-2023 21:57-0500 Respiratory rate 20 /min MD Jose Antonio Garza Work Phone: [facility] 05-31-2023 21:57-0500 SaO2% (BldA) [Mass fraction] 96 % MD Jose Antonio Garza Work Phone: [facility] 05-11-2023 08:13-0400 Body height 154.9 cm Amanuel Valladares WEDDING DESIGNER-CHECKERING MACHINE ADJUSTER Work Phone: [facility] 05-11-2023 08:13-0400 Body mass index (BMI) [Ratio] 42.32 kg/m2 Amanuel Valladares WEDDING DESIGNER-CHECKERING MACHINE ADJUSTER Work Phone: [facility] 05-11-2023 08:13-0400 Body weight 101.61 kg Amanuel Valladares WEDDING DESIGNER-CHECKERING MACHINE ADJUSTER Work Phone: [facility] 05-11-2023 08:13-0400 Diastolic blood pressure 80 mm[Hg] Amanuel Valladares WEDDING DESIGNER-CHECKERING MACHINE ADJUSTER Work Phone: [facility] 05-11-2023 08:13-0400 Heart rate 92 /min Amanuel Valladares WEDDING DESIGNER-CHECKERING MACHINE ADJUSTER Work Phone: [facility] 05-11-2023 08:13-0400 Systolic blood pressure 130 mm[Hg] Amanuel Valladares WEDDING DESIGNER-CHECKERING MACHINE ADJUSTER Work Phone: [facility] 02-24-2023 11:56-0400 Body temperature 98.06 [degF] [facility] 02-24-2023 11:56-0400 Diastolic blood pressure 100 mm[Hg] [facility] 02-24-2023 11:56-0400 Heart rate 89 /min [facility] 02-24-2023 11:56-0400 Respiratory rate 16 /min [facility] 02-24-2023 11:56-0400 SaO2% (BldA) [Mass fraction] 98 % [facility] 02-24-2023 11:56-0400 Systolic blood pressure 200 mm[Hg] [facility] 11-25-2022 12:00-0400 Body height 154.94 cm Nancy Kapadia Other [facility] [employer] Other 11-25-2022 12:00-0400 Body mass index (BMI) [Ratio] 45.91 kg/m2 Nancy Kapadia Other [employer] Other 11-25-2022 12:00-0400 Body weight 110.22 kg Nancy Kapadia Other [employer] Other 11-25-2022 12:00-0400 Diastolic blood pressure 98 mm[Hg] Nancy Kapadia Other [employer] Other 11-25-2022 12:00-0400 Systolic blood pressure 160 mm[Hg] Nancy Kapadia Other [employer] Other 07-07-2022 14:00-0500 Body height 154.94 cm Kyle Call II Other [employer] Other 07-07-2022 14:00-0500 Body mass index (BMI) [Ratio] 41.56 kg/m2 Kyle Call II Other [employer] Other 07-07-2022 14:00-0500 Body weight 99.79 kg Kyle Call II Other [employer] Other 07-05-2022 13:34-0500 Body height 154.94 cm MD Jose Antonio Garza Work Phone: [facility] 07-05-2022 13:34-0500 Body temperature 97.5 [degF] MD Jose Antonio Garza Work Phone: [facility] 07-05-2022 13:34-0500 Body weight 100 kg MD Jose Antonio Garza Work Phone: [facility] 07-05-2022 13:34-0500 Diastolic blood pressure 98 mm[Hg] MD Jose Antonio Garza Work Phone: [facility] 07-05-2022 13:34-0500 Heart rate 85 /min MD Jose Antonio Garza Work Phone: [facility] 07-05-2022 13:34-0500 Respiratory rate 20 /min MD Jose Antonio Garza Work Phone: [facility] 07-05-2022 13:34-0500 SaO2% (BldA) [Mass fraction] 96 % MD Jose Antonio Garza Work Phone: [facility] 07-05-2022 13:34-0500 Systolic blood pressure 188 mm[Hg] MD Jose Antonio Garza Work Phone: [facility] 05-19-2022 14:53-0400 Blood Pressure Location Jose Carlos SALCEDO [facility] 05-19-2022 14:53-0400 Diastolic blood pressure 82 mm[Hg] Jose Carlos SALCEDO [facility] 05-19-2022 14:53-0400 Heart rate 80 /min Jose Carlos FARAHL [facility] 05-19-2022 14:53-0400 Respiratory rate 16 /min Jose Carlos FARAHL [facility] 05-19-2022 14:53-0400 Systolic blood pressure 120 mm[Hg] Jose Carlos FARAHL [facility] 05-10-2022 09:07-0400 Body temperature 98.06 [degF] Mamadou Gonzalez [facility] 05-10-2022 09:07-0400 Diastolic blood pressure 88 mm[Hg] Mamadou Gonzalez [facility] 05-10-2022 09:07-0400 Heart rate 68 /min Mamadou Gonzalez [facility] 05-10-2022 09:07-0400 Respiratory rate 20 /min Mamadou Gonzalez [facility] 05-10-2022 09:07-0400 SaO2% (BldA) [Mass fraction] 98 % Mamadou Gonzalez [facility] 05-10-2022 09:07-0400 Systolic blood pressure 146 mm[Hg] Mamadou Gonzalez [facility] 03-18-2022 08:56-0400 Body height 154.94 cm Jose Antonio Avina Ryla Work Phone: [facility] [address] DO Work Phone: 03-18-2022 08:56-0400 Body mass index (BMI) [Ratio] 43.69 kg/m2 Jose Antonio Corporamay Work Phone: [facility] [address] DO Work Phone: 03-18-2022 08:56-0400 Body surface area Derived from formula 2.01 m2 Jose Antonio Fabrice Hoy Work Phone: [facility] [address] DO Work Phone: 03-18-2022 08:56-0400 Body weight 104.89 kg Jose Antonio Fabrice Hoy Work Phone: [facility] [address] DO Work Phone: 03-18-2022 08:56-0400 Diastolic blood pressure 82 mm[Hg] Jose Antonio Fabrice Hoy Work Phone: [facility] [address] DO Work Phone: 03-18-2022 08:56-0400 Heart rate 78 /min Jose Antonio Fabrice Hoy Work Phone: [facility] [address] DO Work Phone: 03-18-2022 08:56-0400 Systolic blood pressure 140 mm[Hg] Jose Antonio Avina Hoy Work Phone: [facility] 250 DO Work Phone: Encounters Encounter Date Encounter Type Care Provider Facility Start: 11-10-2023 End: 11-10-2023 ambulatory [facility] Start: 11-10-2023 End: 11-10-2023 Encounter for other preprocedural examination [facility] Start: 11-10-2023 End: 11-10-2023 Office outpatient visit 15 minutes Amanuel Lindsey Valladares WEDDING DESIGNER-CHECKERING MACHINE ADJUSTER Work Phone: [facility] Comment on above: Pre-operative cleara nce (Primary Dx); Non-ischemic cardiomyopathy (Multi); Primary hypertension; Morbid obesity (Multi) Start: 11-10-2023 End: 11-10-2023 Preoperative state Amanuel Rosalia Valladares WEDDING DESIGNER-CHECKERING MACHINE ADJUSTER Work Phone: [facility] Work Phone: Start: 10-31-2023 ambulatory FCO COLLIER Facil ity:[facility] Start: 09-27-2023 End: 09-27-2023 ambulatory Kyle Calderon Facility:[facility] Start: 08-01-2023 End: 08-01-2023 ambulatory BRITTANY Alonso MACEY Not Available Start: 06-27-2023 End: 06-27-2023 ambulatory BRITTANY Celeste CHOUDHURY Not Available Start: 06-21-2023 End: 06-21-2023 ambulatory BRITTANY CHOUDHURY Not Available Start: 05-31-2023 End: 06-01-2023 Emergency department patient visit Stef Molina Jr Facility:[facility] Start: 05-31-2023 End: 05-31-2023 Emergency department patient visit MD Jose Antonio Garza Work Phone: [facility] Work Phone: Start: 05-11-2023 End: 05-11-2023 ambulatory [facility] Start: 05-11-2023 End: 05-11-2023 Office outpatient visit 15 minutes [facility] WEDDING DESIGNER-CHECKERING MACHINE ADJUSTER Work Phone: [facility] Comment on above: Non-ischemic cardiom yopathy (CMS/HCC) (Primary Dx); Primary hypertension; Obstructive sleep apnea syndrome; Morbid obesity (CMS/HCC); Hypertension, unspecified type; SOB (shortness of breath) on exertion Start: 04-28-2023 End: 04-28-2023 ambulatory Jose Antonio Garza Facility:[facility] Start: 04-28-2023 End: 04-28-2023 ambulatory MD Jose Antonio Garza Work Phone: [facility] Work Phone: Start: 04-28-2023 End: 04-28-2023 Patient encounter procedure MD Jose Antonio Garza Work Phone: [facility] [address] Work Phone: Start: 03-28-2023 Rx Renewal Jose Antonio Garza Work Phone: [facility] 250 DO Work Phone: Start: 02-24-2023 End: 02-24-2023 Emergency department patient visit Briana Winters Facility:[facility] Start: 02-24-2023 End: 02-24-2023 Emergency department patient visit Briana Winters [facility] Start: 01-05-2023 End: 01-05-2023 ambulatory Kyle Calderon Facility:[facility] Start: 01-05-2023 End: 01-05-2023 ambulatory MD Jose Antonio Garza Work Phone: [facility] Work Phone: Start: 01-05-2023 End: 01-05-2023 Patient encounter procedure MD Jose Antonio Garza Work Phone: [facility] [address] Work Phone: Start: 11-30-2022 End: 11-30-2022 ambulatory Maxi Glez Other [facility] [employer] [employer] Other Start: 11-30-2022 Telephone encounter Maxi Glez [facility] [employer] Start: 11-25-2022 End: 11-25-2022 ambulatory Nancy Kapadia Other [facility] [employer] Other Start: 11-25-2022 Office outpatient ne w 45 minutes Nancy Kapadia [facility] Neurosurgery Start: 11-22-2022 Rx Renewal Jose Antonio Garza Work Phone: [facility] 600 DO Work Phone: Start: 11-13-2022 End: 11-14-[address] JOSE ANTONIO GARZA . Facility: Start: 11-03-2022 End: 11-03-2022 ambulatory Kyle Calderon Facility:[facility] Start: 11-03-2022 End: 11-03-2022 ambulatory MD Jose Antonio Garza Work Phone: [facility] Work Phone: Start: 11-03-2022 End: 11-03-2022 Patient encounter procedure MD Jose Antonio Garza Work Phone: [facility] [address] [place] Work Phone: Start: 11-01-2022 Rx Renewal Jose Antonio Garza Work Phone: [facility] 250 DO Work Phone: Start: 10-19-2022 End: 10-19-2022 ambulatory Kyle [employer] Other [employer] Other Start: 10-19-2022 Telephone encounter Kyle [employer] [employer] [facility] Start: 10-07-2022 End: 10-07-2022 ambulatory Kyle Jakub II Other [employer] Other Start: 10-07-2022 Telephone encounter Kyle [employer] [facility] Orthopedics Start: 09-29-2022 Office outpatient vi sit 25 minutes Kyle Jakub II [facility] Start: 09-29-2022 End: 09-29-2022 ambulatory MD Jose Antonio Garza Work Phone: [facility] Work Phone: Start: 09-29-2022 End: 09-29-2022 Patient encounter procedure MD Jose Antonio Garza Work Phone: [facility] Start: 09-06-2022 Rx Renewal Jose Antonio Garza Work Phone: [facility] [address] DO Work Phone: Start: 08-02-2022 End: 08-02-2022 ambulatory Kyle Jakub II Other [facility] Other Start: 08-02-2022 Telephone encounter Kyle [place] II [facility] Start: 07-30-2022 End: 07-30-2022 ambulatory Kyle Jakub II Other [facility] Other Start: 07-30-2022 Office outpatient vi sit 25 minutes Kyle [place] II [facility] Start: 07-27-2022 End: 07-27-2022 Patient encounter procedure MD Jose Antonio Garza Work Phone: [facility] [address] Work Phone: Start: 07-22-[address] JOSE ANTONIO GARZA . Facili ty:H1 Start: 07-07-2022 Office outpatient ne w 45 minutes Kyle Jakub II [facility] Start: 07-07-2022 End: 07-07-2022 ambulatory MD Jose Antonio Garza Work Phone: [facility] Work Phone: Start: 07-07-2022 End: 07-07-2022 Patient encounter procedure MD Jose Antonio Garza Work Phone: [facility] Start: 07-05-2022 End: 07-05-2022 Emergency department patient visit MD Jose Antonio Garza Work Phone: [facility]-Emergency Room Start: 06-30-2022 End: 06-30-[address] JOSE ANTONIO GARZA . Facility:H1 Start: 05-19-2022 End: 05-19-[address] JOSE ANTONIO GARZA . Facility:[facility]1 Start: 05-19-2022 End: 05-19-2022 Patient encounter procedure Jose Carlos SALCEDO General Surgery Nill/Said Jaleel Start: 05-10-2022 End: 05-10-2022 Emergency department patient visit Mamadou Carlos [facility] Start: 03-18-2022 Office outpatient vi sit 15 minutes Jose Antonio Garza Work Phone: [facility] DO Work Phone: Start: 03-01-2022 End: 03-01-[address] JOSE ANTONIO GARZA . Facility:[facility]1 Start: 02-22-2022 End: 02-22-2022 Patient encounter procedure MD Jose Antonio Garza Work Phone: [facility] [address] Start: 02-15-2022 End: 02-16-[address] JOSE ANTONIO GARZA . Facility:H1 Start: 02-10-2022 End: 02-10-2022 Patient encounter procedure MD Jose Antonio Garza Work Phone: [facility] [address] [place] Start: 01-26-2022 Rx Renewal Jose Antonio Garza Work Phone: [facility] DO Work Phone: Start: 01-22-2022 Rx Renewal Jose Antonio Garza Work Phone: [facility] DO Work Phone: Start: 10-06-2021 AUDIT Jose Antonio Garza Work Phone: [facility] DO Work Phone: Start: 10-17-2018 Patient encounter procedure PROVIDER UNKNOWN Facility:[id number] Start: 10-17-2018 Patient encounter procedure Facility:[id number] Start: 05-30-2018 End: 06-09-2018 Patient encounter procedure CEASAR CUNHA [facility] Start: 01-30-2018 End: 01-30-2018 Patient encounter procedure CEASAR CUNHA [facility] Start: 04-07-2017 End: 04-08-2017 Ambulatory DEFAULT PHYSICIAN Facility:[facility] Procedures Date Procedure Procedure Detail Performing Clinician Start: 11-10-2023 Ecg routine ecg w/le ast 12 lds w/i&r Amanuel Valladares WEDDING DESIGNER-CHECKERING MACHINE ADJUSTER Work Phone: Start: 05-31-2023 SARS-CoV-2, Influenz a [...] w/ Lymph node removal left arm Mamadou Gonazlez Appendectomy Jose Antonio Garza Work Phone: Appendectomy [...] Work Phone: Comment on above: ONSET DATE 18Jul2014; Plan of Treatment Date Care Activity Detail Author Start: 05-10-2032 DTaP/Tdap/Td Vaccines (3 - Td or Tdap) DTaP/Tdap/Td Vaccines (3 - Td or Tdap) [facility] Start: 05-09-2024 End: 05-09-2024 Patient encounter procedure 05/09/2024 8:00 AM EDT Office Visit [facility] [address] [facility] [address] [place] [id number] Amanuel Valladares, WEDDING DESIGNER-CHECKERING MACHINE ADJUSTER [address] [facility] [address] [place] [address] [facility] Start: 04-23-2024 End: 04-23-2024 Patient encounter procedure 04/23/2024 8:00 AM EDT Office Visit [facility] [address] [facility] [address] [place] [address] Amanuel Valladares, WEDDING DESIGNER-CHECKERING MACHINE ADJUSTER [address] [facility] [address] [place] [address] [facility] Start: 03-18-2024 Influenza vaccination Influenza Vaccine (Season Ended) [facility] Start: 05-31-2023 Plain chest X-ray XR chest 2V* [facility] Start: 05-31-2023 XR Chest 2 Views [facility] Start: 05-11-2023 FUV, Provider: Amanuel Davis, Status: Pen, Time: 8:00 AM FUV, Provider: Amanuel Davis, Status: Pen, Time: 8:00 AM [facility] DO Work Phone: Start: 03-23-2023 FUV, Provider: Amanuel Davis, Status: Pen, Time: 9:00 AM FUV, Provider: Amanuel Davis, Status: Pen, Time: 9:00 AM [facility] DO Work Phone: Start: 03-18-2023 Influenza vaccination Influenza Vaccine (#1) [facility] Start: 03-17-2022 FUV, Provider: Frandy Fung, Status: Pen, Time: 10:10 AM FUV, Provider: Frandy Fung, Status: Pen, Time: 10:10 AM [facility] Work Phone: Start: 02-22-2022 End: 02-22-2022 Patient encounter procedure Departed Clinical [facility] [address] Start: 12-17-2021 FUV, Provider: Frandy Fung, Status: Pen, Time: 9:50 AM FUV, Provider: Frandy Fung, Status: Pen, Time: 9:50 AM [facility] 250 DO Work Phone: Start: 11-22-2020 COVID-19 Vaccine (3 - Moderna risk series) COVID-19 Vaccine (3 - Moderna risk series) [facility] Start: 2006 Screening for malignant neoplasm of breast Mammogram [facility] Start: 1987 Screening for malignant neoplasm of cervix [facility] Start: 1985 Hepatitis B Vaccines (1 of 3 - 19+ 3-dose series) Hepatitis B Vaccines (1 of 3 - 19+ 3-dose series) [facility] Start: 1985 Zoster Vaccines (1 of 2) Zoster Vaccines (1 of 2) [facility] Start: 1984 Diabetes mellitus screening Diabetes Screening [facility] Start: 1984 Hepatitis C screening Hepatitis C Screening [facility] Start: 1972 Pneumococcal Vaccine: Pediatrics (0 to 5 Years) and At-Risk Patients (6 to 64 Years) (1 - PCV) Pneumococcal Vaccine: Pediatrics (0 to 5 Years) and At-Risk Patients (6 to 64 Years) (1 - PCV) [facility] Start: 1972 Pneumococcal Vaccine: Pediatrics (0 to 5 Years) and At-Risk Patients (6 to 64 Years) (1 of 2 - PCV) Pneumococcal Vaccine: Pediatrics (0 to 5 Years) and At-Risk Patients (6 to 64 Years) (1 of 2 - PCV) [facility] Start: 1967 MMR Vaccines (1 of 1 - Standard series) MMR Vaccines (1 of 1 - Standard series) [facility] Start: 1966 Hepatitis B Vaccines (1 of 3 - 3-dose series) Hepatitis B Vaccines (1 of 3 - 3-dose series) [facility] Start: 1966 HIV screening HIV Screening [facility] Start: 1966 Lipid panel Lipid Panel [facility] Start: 1966 Screening for malignant neoplasm of colon [facility] Start: 1966 Yearly Adult Physical Yearly Adult Physical [facility] ECG 12 Lead ECG 12 Lead ECG Routine Pre-operative clearance 11/10/2023 2:30 PM EDT [facility] Service Area Work Phone: Patient Education [facility] Work Phone: Patient referral [facility] Work Phone: Immunizations Immunization Date Immunization Notes Care Provider Shanta gladys 05-10-2022 tetanus toxoid, redu lorena diphtheria toxoid, and acellular pertussis vaccine, adsorbed Mamadou Gonzalez [facility] 05-27-2021 influenza virus vaccine, unspecified formulation Jose Antonio M Hoy Work Phone: [facility] [address] DO Work Phone: 10-25-2020 Moderna COVID-19 Vaccine 100 MCG/0.5ML Intramuscular Suspension Jose Antonio M Hoy Work Phone: [facility] [address] DO Work Phone: 09-27-2020 Moderna COVID-19 Vaccine 100 MCG/0.5ML Intramuscular Suspension Jose Antonio M Hoy Work Phone: [facility] DO Work Phone: 05-16-2020 influenza virus vaccine, unspecified formulation Jose Antonio M Hoy Work Phone: [facility] [address] DO Work Phone: 04-27-2020 influenza virus vaccine, unspecified formulation Jose Antonio M Hoy Work Phone: [facility] [address] DO Work Phone: 04-27-2020 influenza, seasonal, injectable Amanuel Valladares WEDDING DESIGNER-CHECKERING MACHINE ADJUSTER Work Phone: [facility] Work Phone: 05-17-2019 influenza virus vaccine, unspecified formulation Jose Antonio M Hoy Work Phone: [facility] DO Work Phone: 04-17-2018 influenza virus vaccine, unspecified formulation Jose Antonio M Hoy Work Phone: [facility] DO Work Phone: 04-28-2016 influenza, injectabl e, quadrivalent, preservative free Jose Antonio M Hoy Work Phone: [facility] DO Work Phone: 04-22-2016 influenza, seasonal, injectable Jose Antonio Garza Work Phone: [facility] 04-17-2016 influenza virus vaccine, unspecified formulation Jose Antonio Garza Work Phone: [facility] DO Work Phone: 06-08-2014 tetanus toxoid, redu lorena diphtheria toxoid, and acellular pertussis vaccine, adsorbed Kyle [place] II Other [facility] [employer] Other 06-01-2010 tetanus toxoid, redu lorena diphtheria toxoid, and acellular pertussis vaccine, adsorbed Mamadou Gonzalez [facility] Payers Date Payer Category Payer Unknown 1965 Unknown [id number] 1966 Unknown [id number] [id number] 1966 Unknown [id number] [id number] 1966 Unknown [id number] [id number] 1966 Unknown [id number] 2.16.840.1.672286.3.579.2.593 1966 Unknown [id number] 2.16.840.1.969201.3.579.2.593 1966 Unknown [id number] 2.16.840.1.259481.3.579.2.593 1966 Unknown [id number] 2.16.840.1.624837.3.579.2.593 1966 Unknown [id number] 2.16.840.1.506795.3.579.2.1259 1966 Unknown [id number] 2.16.840.1.360915.3.579.2.1259 1966 Unknown [id number] 2.16.840.1.104856.3.579.2.1259 1966 Unknown [id number] 2.16.840.1.376823.3.579.2.1244 1966 Unknown [id number] 2.16.840.1.063960.3.579.2.1244 1966 Unknown [id number] 2.16.840.1.295761.3.579.2.727 1966 Unknown [id number] 2.16.840.1.141188.3.579.2.727 1959 Self-pay [id number] 1959 Unknown [id number] Unknown [id number] 2.16.840.1.256663.3.579.2.531 Unknown [id number] 2.16.840.1.474043.3.579.2.531 Unknown [id number] 2.16.840.1.957565.3.579.2.531 Unknown [id number] 2.16.840.1.809506.3.579.2.531 Unknown [id number] [id number] Worker's Compensation [employer] [id number] Social History Date Type Detail Facility Start: 05-11-2023 Caffeine use [facility] DO Work Phone: Comment on above: OCCASIONAL COFFEE; QUIT 1988 07/19 PPD; Start: 06-01-2021 End: 05-11-2023 Tobacco smoking status NHIS Never smoked tobacco (finding) [facility] Start: 1965 Sex Assigned At Female F [facility] Start: 05-11-2023 Sex Assigned At Female F [facility] Tobacco smoking status Never [facility] Start: 05-11-2023 End: 11-10-2023 Tobacco use and exposure Smokeless tobacco non-user [facility] Work Phone: Start: 05-11-2023 End: 11-10-2023 Alcohol intake Current drinker of alcohol (finding) [facility] Work Phone: Start: 05-11-2023 Alcohol Comment social [facility] Work Phone: Start: 1965 Sex Assigned At Not on file [facility] Work Phone: Start: 05-01-2023 End: 11-10-2023 Exposure to SARS-CoV-2 (event) Not sure [facility] Start: 05-31-2023 End: 11-10-2023 Tobacco smoking status NHIS Ex-smoker (finding) [facility] History of tobacco use Current smoker [facility] Work Phone: History of tobacco use Cigarette Smoker [facility] Work Phone: Functional Status Date Assessment Result Facility 02-24-2023 Functional Status N/A [facility] 05-19-2022 Functional Status N/A [facility] 05-10-2022 Functional Status N/A [facility] Clinical Notes 02-16-2022 to 11-10-2023 Assessment & Plan Note - KADE Riggs - 11/10/2023 3:45 PM EDTAssessment & Plan Note - KADE Riggs - 11/10/2023 3:45 PM EDTPatient InstructionsPatient Instructions Note Date & Type Note Facility 11-10-2023 Evaluation + Plan note Associated Problem(s): Morbid obesity (Multi) Reviewed the merits of healthy lifestyle choices on overall cardiovascular health. [facility] Work Phone: 11-10-2023 Evaluation + Plan note Associated Problem(s): Hypertension Optimal in office [facility] Work Phone: 11-10-2023 Evaluation + Plan note Associated Problem(s): Non-ischemic cardiomyopathy (Multi) HF improved EF 64% December 2020 MUGA (08/2020 TTE EF 30%) FC II Stage C Remains on optimal GDMT [facility] Work Phone: 11-10-2023 Miscellaneous Notes Associated Problem(s): Morbid obesity (Multi) Reviewed the merits of healthy lifestyle choices on overall cardiovascular health. Associated Problem(s): Hypertension Optimal in office Associated Problem(s): Non-ischemic cardiomyopathy (Multi) HF improved EF 64% December 2020 MUGA (08/2020 TTE EF 30%) FC II Stage C Remains on optimal GDMT documented in this encounter [facility] Work Phone: 11-10-2023 History of Presen t [...] without voiced cardiovascular complaints. Patient presents to [facility] to obtain cardiac risk stratification prior to a lumbar fusion. Surgeon: Dr. Alexander. Planned date: December 02, 2023 Patient presents to the office today with activity level > 4 METS. Daily activity includes: ADLs, housework, works full-time at [employer] Total DASI: 31.45 METs: 6.6 EKG in office: Normal sinus rhythm, nonspecific changes. No ischemia. ACC/AHA guidelines: 1. Major clinical markers: -Acute coronary syndrome or CA within 30 days: No -Decompensated heart failure: No -Significant arrhythmia: No -Severe valvular heart disease: No 2. Intermediate clinical markers -History of ischemic heart disease (prior CA, current chest pain secondary to ischemia, use [...] proceed with surgical procedure. Amanuel Valladares MSN, WEDDING DESIGNER-CHECKERING MACHINE ADJUSTER, PMHNP-[facility] Please excuse any errors in grammar or translation related to this dictation. Voice recognition software was utilized to prepare this document. documented in this encounter [facility] Work Phone: 11-10-2023 Instructions KADE Riggs - [...] arise. As scheduled documented in this encounter [facility] Work Phone: 05-11-2023 Evaluation + Plan note Associated Problem(s): SOB (shortness of breath) on exertion No evidence of volume overload Minimal complaints mostly due to deconditioning [facility] Work Phone: 05-11-2023 Miscellaneous Notes Associated Problem(s): [...] coronaries: EF 40% documented in this encounter [facility] Work Phone: 05-11-2023 Evaluation + Plan note Associated Problem(s): Hypertension Optimal in office [facility] Work Phone: 05-11-2023 Evaluation + Plan note Associated Problem(s): Non-ischemic cardiomyopathy (CMS/HCC) HF improved EF 64% December 2020 MUGA (08/2020 TTE EF 30%) FC II Stage C Remains on optimal GDMT [facility] Work Phone: 05-11-2023 Evaluation + Plan note Associated Problem(s): Morbid obesity (CMS/HCC) Reviewed the merits of healthy lifestyle choices on overall cardiovascular health. [facility] Work Phone: 05-11-2023 Evaluation + Plan note Associated Problem(s): Sleep apnea Remains compliant with CPAP [facility] Work Phone: 05-11-2023 Evaluation + Plan note Associated Problem(s): Cardiac and Vasculature 2017 Cardiac cath angiographically normal coronaries: EF 40% [facility] Work Phone: 05-11-2023 History of [...] is able to walk into the [employer] without any complaints. She is actively working on weight loss. 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 Denies any change [...] contact the office if new symptoms arise. ROD WELDER annual follow-up Current treatment plan is effective, no change in therapy. Reviewed diet, exercise and weight control. Reviewed medications and side effects in detail. Amanuel Valladares MSN, WEDDING DESIGNER-CHECKERING MACHINE ADJUSTER, PMHNP-[facility] Please excuse any errors in grammar or translation related to this dictation. Voice recognition software was utilized to prepare this document. documented in this encounter [facility] Work Phone: 05-11-2023 Instructions KADE Riggs - [...] contact the office if new symptoms arise. 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 Check your abscess every day for signs [...] provider. Document Revised: 04/12/2022 Document Reviewed: 04/12/2022 [employer] Patient Education 2022 [employer]. 02/24/2023 13:18:12 Cellulitis, Adult Cellulitis, Adult Cellulitis [...] Follow these instructions at home: Medicines Take agvo-ivu-hwmbdiv and prescription medicines only as told by [...] such as antibiotic medicines or antihistamines. Take pclu-jrb-gscmaas and prescription medicines only as told by [...] provider. Document Revised: 04/15/2022 Document Reviewed: 04/15/2022 [employer] Patient Education 2022 [employer]. Follow Up Care 02/24/2023 11:55:51 With:Jose Antonio Garza Address: [address] [place] [address] Business (1) When:02/27/2023 13:03:40 [facility] 02-24-2023 Evaluation + Plan note Extrac edd from: Title:ED Note Author:Rodrick Mobley PA-C te:02/24/23 Abscess (L02.91: Cutaneous a bscess, unspecified) Cellulitis (L03.90: Cellulitis, unspecified) Orders: cephalexin, 500 mg = 1 cap(s), Oral, TID, Take one capsule by mouth three times a day for ten days, # 30 cap(s), Refills(s) 0, Pharmacy: [facility], 155, cm, 02/24/23 12:00:00 EDT, Height/Length Dosing, 108.2, kg, 02/24/23 12:00:00 EDT, Weight Dosing doxycycline, 100 mg = 1 tab(s), Oral, BID, X 10 day(s), # 20 tab(s), Refills(s) 0, Pharmacy: [facility], 155, cm, 02/24/23 12:00:00 EDT, Height/Length Dosing, 108.2, kg, 02/24/23 12:00:00 EDT, [facility]05[facility]11-2023 Evaluation note* Encounter Date Diagnosis Assessment [...] continue with current prescriptions and will get aapq-des-hranrno Thermo patches. Follow-up in 6 weeks. Medical [...] bursitis of right hip (ICD-10 - M70.61) 11 May, 2023 Encounter for screening for depression (ICD-10 - Z13.31) PHQ reviewed score 0 negative screening [employer] Other 03-15-2023 Evaluation note* Encounter Date Diagnosis [...] with me on a as needed basis. [employer] Other 01-13-2023 Evaluation note* Encounter Date Diagnosis [...] right lower extremity. Recommended continued Tylenol and ffuq-grs-kuzdxxm anti-inflammatory use. Also recommended continued calcium and vitamin D supplementation which she has already been doing. I will plan to check back with her in about 8 weeks with repeat AP pelvis, inlet, outlet views to check on the healing progress. [employer] Other 12-21-2022 Evaluation note* Encounter Date Diagnosis [...] work until we get these MRI results. [employer] Other 10-24-2022 Evaluation + Plan noteExtracted from: Title:ED Note Author:Mamadou Gonzalez DO Date: Finger laceration (S61.219A: Laceration without foreign body of unspecified finger without damage to nail, initial encounter) Orders: tetanus/diphtheria/pertussis, acel (Tdap), 0.5 mL, Injection, Intramuscular-Immunization, Once, Stop date 05/10/22 9:16:00 EDT, STAT, Start date 05/10/22 9:16:00 EDT [facility]10-24-2022 Hospital Discharge instructions Follow Up Care 05/10/2022 09:04:11 With:Jose Antonio Garza Address: [address] [place], [place] [id number]- Business (1) When:Within 3 Day(s) [facility]08-02-2022 NotePROCEDURE: XR HIPS HEATH 5V W [...] by: JOSÉ MIGUEL SERNA Date: 2022-02-16 [facility]:14[facility] Future Appointments Appointment Date:05/25/2022 02:40:00 PM Scheduled Provider:Jose Carlos SALCEDO MD Location:[facility] Appointment Type: Established 15 Diagnostic Tests Pending * Wound Culture 05/19/22 [facility] Evaluation noteNo assessment information available [facility] Work Phone: Evaluation noteNo InformationNort Tu Closet [facility] Other Evaluation note* Diagnosis Non-ischemic cardiomyopathy (CMS/HCC)- Primary Other primary cardiomyopathies Primary hypertension Unspecified essential hypertension Obstructive sleep apnea syndrome Obstructive sleep apnea (adult) (pediatric) Morbid obesity (CMS/HCC) Morbid obesity Hypertension, unspecified type SOB (shortness of breath) on exertion Shortness of breath documented in this encounter [facility] Work Phone: Evaluation note* Diagnosis Pre-operative clearance- Primary Unspecified pre-operative examination Non-ischemic cardiomyopathy (Multi) Other primary cardiomyopathies Primary hypertension Unspecified essential hypertension Morbid obesity (Multi) Morbid obesity documented in this encounter [facility] Work Phone: Hiszlyc general Narrative - Reported* Type Description Date Medical History RA Surgical History hysterectomy Surgical History cholecystectomy Surgical History appendectomy Surgical History left foot surgery [employer] Other Hisbsng general Narrative - Reported* Type Description Date Medical History RA Surgical History hysterectomy Surgical History cholecystectomy Surgical History appendectomy Surgical History left foot surgery Hospitalization History see surg HX [employer] Other Hospital course Narrative No data available for this section [facility] No data available for this section [facility] Progress note No data available for this section [facility] (n[facility]ative)* Consultation (Routine) - Authorized Specialty Diagnoses / Procedures Referred By Reema rodriguez Referred To Contact Cardiology Diagnoses Non-ischemic cardiomyopathy (CMS/HCC) Primary hypertension Obstructive sleep apnea syndrome Procedures Follow Up In Cardiology Amanuel Valladares APRN-CNP [address] [facility] [address] [place] [address] Referral ID Status Reason Start Date Expiration Date V isits Requested Visits Authorized [id number] Authorized 05/11/2023 05/10/2024 1 1 T [facility] Work Phone: Summary Purpose Family History No [...] clearance Procedures ECG 12 Lead Amanuel Valladares, [employer] DESIGNER-CHECKERING MACHINE ADJUSTER [address] [facility] [address] [place] [address] Referral ID Status Reason Start Date Expiration Date V isits Requested Visits Authorized [id number] Authorized 11/10/2023 11/09/2024 1 1 Reason Aqua therapy - evalu ate and treat Diagnosis 1 Lumbosacral radiculo vanessa (M54.17) Referral Organization [facility]urger Referring Provider First Name Nancy Referring Provider Last Name Kapadia Referring Provider Specialty Nurse Pract itioner Referred Organization [facility] Referred Address [address] [place], [place],[address] Referred Provider Specialty Physical The rapist Referral Priority Routine Reason evaluate for Si inje ction Diagnosis 1 Lumbosacral radiculo vanessa (M54.17) Referral Organization [facility] Referring Provider First Name Nancy Referring Provider Last Name Kapadia Referring Provider Specialty Nurse Pract itioner Referred Organization [facility] Pain Managemen t Referred Provider Maxi Glez Referred Address [address] [facility],[address] [address] ,[place], [place],[address] Referred Provider Specialty Pain Medicin e Referral Priority Routine Additional Source Comments INFORMATION SOURCE (unrecogn ized section and content) DATE CREATED AUTHOR 01/11/2018 [facility] DATE CREATED AUTHOR AUTHOR'S ORGANIZ ATION 08/11/2018 [facility] DATE CREATED AUTHOR AUTHOR'S ORGANIZ ATION 10/20/2018 [facility] DATE CREATED AUTHOR AUTHOR'S ORGANIZ ATION 10/21/2018 [facility] DATE CREATED AUTHOR AUTHOR'S ORGANIZ ATION 01/28/2021 [facility] DATE CREATED AUTHOR AUTHOR'S ORGANIZ ATION 03/19/2022 [facility] DATE CREATED AUTHOR AUTHOR'S ORGANIZ ATION 11/19/2022 [facility] pital DATE CREATED AUTHOR AUTHOR'S ORGANIZ ATION 08/01/2023 [facility] EPIC DATE CREATED AUTHOR AUTHOR'S ORGANIZ ATION 10/07/2023 [facility] DATE CREATED AUTHOR AUTHOR'S ORGANIZ ATION 11/12/2023 [facility] DATE CREATED AUTHOR AUTHOR'S ORGANIZ ATION 11/24/2023 [facility] Care Teams (unrecognized sec tion and [...] Kyle Call II, MD Attending Provider Active Car Whacker Relationship Specialty Start Date End Date Jose Antonio Garza MD [address] [id number] PCP - General 09/04/20 Team Status: Inactive Member Role Status Dates Jose Antonio Garza MD Primary Care Provider Active Stef Molina Jr, MD Emergency Provider Active Car Whacker Relationship Specialty Start Date End Date Jose Antonio Garza MD [address] [place] [address] PCP - General 09/04/20 Goals (unrecognized section [...] AMIRA Specialty Diagnoses / Procedures Referred By Contjean pierre t Referred To Contact Diagnoses Pre-operative clearance Procedures ECG 12 Lead Amanuel Valladares, [employer] DESIGNER-CHECKERING MACHINE ADJUSTER [address] [facility] [address], [address] [address] Referral ID Status Reason Start Date Expiration Date V isits Requested Visits Authorized [id number] Authorized 11/10/2023 11/09/2024 1 1 FOR RECORDS [...] BE BASED ON THE PRIMARY CLINICAL RECORDS. [facility] [employer] [facility]. provides no warranty or guarantee of the accuracy or completeness of information in this document.
--- NOTE | 2023-12-11 10:13 | PC.NURSE ---
incision to back has a clean dry dressing on, incision appears to be healing appropriately, no redness or swelling to skin surrounding incision site, scab to center of incision wnl, no current drainage noted.
--- NOTE | 2023-12-11 10:51 | ED_ITS ---
HPI HPI - General Adult General Chief complaint: Skin/Abscess/Foreign Body Stated complaint: Wound Check Time Seen by Provider: 12/11/23 10:23 Source: patient Mode of arrival: walk-in Limitations: no limitations History of Present Illness HPI narrative: The patient presented to us with no acute complaint of pain or fever or chills but she just had the laminectomy surgery on 01 December, and the patient presenting to us with a concern of the is doing the dressing just to make sure that the patient have no infection, he mentioned he is worried about the dressing changes and the fact that he have some drainage on it that he mentioned it looks more than usual The patient have no fever no chills no other complaints and she does not have any complaint herself Related Data Home Medications ?Medication ?Instructions ?Recorded ?Confirmed furosemide 40 mg tablet 40 mg PO DAILY 12/19/22 12/09/23 sacubitril 49 mg-valsartan 51 mg 1 tab PO BID 12/19/22 12/09/23 tablet (Entresto) tizanidine 4 mg tablet 8 mg PO .hs PRN muscles cramps 12/19/22 12/09/23 leflunomide 20 mg tablet 20 mg PO DAILY 11/22/23 12/09/23 spironolactone 25 mg tablet 25 mg PO DAILY 11/22/23 12/09/23 Previous Rx's ?Medication ?Instructions ?Recorded carvedilol 25 mg tablet 25 mg PO Q12H #60 tabs 12/05/23 hydrocodone 5 mg-acetaminophen 325 1 tab PO Q6H PRN pain 5 days #20 12/09/23 mg tablet tabs Allergies Allergy/AdvReac Type Severity Reaction Status Date / Time clobetasol [From Embeline] Allergy Severe shortness Verified 12/09/23 09:10 of breath sulfamethoxazole Allergy Severe Hives Verified 12/09/23 09:10 [From Bactrim] trimethoprim [From Bactrim] Allergy Severe Hives Verified 12/09/23 09:10 etanercept [From Enbrel] Allergy CHF Verified 12/09/23 09:10 methotrexate Allergy CHF Verified 12/09/23 09:10 Opioid HPI Opioid Management Most Recent Opioid Data: Last Pain Scale 4 12/09/23 09:57 Last Pain Assessment 12/05/23 15:00 Last ORT Total Score 1 12/02/23 15:40 Last ORT Risk Category Low Risk 12/02/23 15:40 Review of Systems ROS Status of ROS 10 or more systems reviewed and unremark able except as noted in history and below [facility] Medical History (Updated 12/11/23 @ 10:31 by Bria Roslaes MD) History of blood transfusion ?Z92.89 - Personal history of other medical treatment (ICD-10) Heartburn ?R12 - Heartburn (ICD-10) Pelvis fracture ?S32.9XXA - Fracture of unspecified parts of lumbosacral spine and pelvis, initial encounter for closed fracture (ICD-10) Rheumatoid arthritis ?M06.9 - Rheumatoid arthritis, unspecified (ICD-10) Arthritis ?M19.90 - Unspecified osteoarthritis, unspecified site (ICD-10) Plantar fasciitis ?M72.2 - Plantar fascial fibromatosis (ICD-10) Fibroma ?D21.9 - Benign neoplasm of connective and other soft tissue, unspecified (ICD-10) Vertigo ?R42 - Dizziness and giddiness (ICD-10) Diverticulosis ?K57.90 - Diverticulosis of intestine, part unspecified, without perforation or abscess without bleeding (ICD-10) Chronic combined systolic and diastolic heart failure ?I50.42 - Chronic combined systolic (congestive) and diastolic (congestive) heart failure (ICD-10) Snoring ?R06.83 - Snoring (ICD-10) Cardiomyopathy ?I42.9 - Cardiomyopathy, unspecified (ICD-10) Sleep apnea ?G47.30 - Sleep apnea, unspecified (ICD-10) Calcaneal fracture ?S92.009A - Unspecified fracture of unspecified calcaneus, initial encounter for closed fracture (ICD-10) Foot pain ?M79.673 - Pain in unspecified foot (ICD-10) Achilles tendinitis ?M76.60 - Achilles tendinitis, unspecified leg (ICD-10) Left ventricular systolic dysfunction ?I51.9 - Heart disease, unspecified (ICD-10) Tinea pedis ?B35.3 - Tinea pedis (ICD-10) Hematuria ?R31.9 - Hematuria, unspecified (ICD-10) Flank pain ?R10.9 - Unspecified abdominal pain (ICD-10) Postherpetic polyneuropathy ?B02.23 - Postherpetic polyneuropathy (ICD-10) Abdominal pain ?R10.9 - Unspecified abdominal pain (ICD-10) Epigastric pain ?R10.13 - Epigastric pain (ICD-10) Eczema ?L30.9 - Dermatitis, unspecified (ICD-10) Wrist pain ?M25.539 - Pain in unspecified wrist (ICD-10) Lumbar radiculopathy ?M54.16 - Radiculopathy, lumbar region (ICD-10) Diverticulitis ?K57.92 - Diverticulitis of intestine, part unspecified, without perforation or abscess without bleeding (ICD-10) Hip pain ?M25.559 - Pain in unspecified hip (ICD-10) Knee pain ?M25.569 - Pain in unspecified knee (ICD-10) Furuncle of axilla ?L02.429 - Furuncle of limb, unspecified (ICD-10) Hip strain ?S76.019A - Strain of muscle, fascia and tendon of unspecified hip, initial encounter (ICD-10) Bronchitis ?J40 - Bronchitis, not specified as acute or chronic (ICD-10) COVID-19 ?U07.1 - COVID-19 (ICD-10) Hypertension ?I10 - Essential (primary) hypertension (ICD-10) Nonischemic cardiomyopathy ?I42.8 - Other cardiomyopathies (ICD-10) Heart failure ?I50.9 - Heart failure, unspecified (ICD-10) Back pain ?M54.9 - Dorsalgia, unspecified (ICD-10) Lumbar spondylosis ?M47.816 - Spondylosis without myelopathy or radiculopathy, lumbar region (ICD-10) Lumbar stenosis with neurogenic claudication ?M48.062 - Spinal stenosis, lumbar region with neurogenic claudication (ICD- 10) Surgical History (Updated 11/22/23 @ 10:20 by Kierra Juarez NP) History of cholecystectomy ?Z90.49 - Acquired absence of other specified parts of digestive tract (ICD- 10) History of appendectomy ?Z90.49 - Acquired absence of other specified parts of digestive tract (ICD- 10) History of hysterectomy ?Z90.710 - Acquired absence of both cervix and uterus (ICD-10) History of bladder surgery ?Z98.890 - Other specified postprocedural states (ICD-10) H/O foot surgery ?Z98.890 - Other specified postprocedural states (ICD-10) Family History (Updated 11/22/23 @ 10:32 by Kierra Juarez NP) Other Family history of aneurysm Family history of diabetes mellitus Family history of hypertension Family history of myocardial infarction Family history of ovarian cancer Family history of stroke Social History (Updated 11/22/23 @ 10:28 by Kierra Juarez NP) Within the past year, how often did you have a drink containing alcohol: never Score interpretation: A score less than 3 is consistent with normal alcohol consumption. 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 General: Well-appearing and in no apparent distress. Skin: Warm, dry, no pallor noted. No rash. Head: Normocephalic, atraumatic. Neck: Supple, non-tender. Eye: Pupils are equal, round and EOMI. No scleral icterus. Ears, Nose, Mouth, and Throat: TM are clear, no nasal mucosal hypertrophy. Oral mucosa is moist, no posterior oropharynx erythema, uvula is mid-line Cardiovascular: Regular Rate and Rhythm without murmur, gallop or rub. Respiratory: No accessory muscle use or respiratory distress. Lungs are clear to auscultation, no wheezing, rales or rhonchi Chest Wall: no tenderness Back: Back examination showed that the patient have a wound that is healing adequately no signs of infection no redness no hotness no pocketing of any pus or any fluid drainage at the moment the patient have minimal serous drainage on the dressing Musculoskeletal: normal ROM, no calf or popliteal tenderness, no lower extremity edema/swelling GI: Abdomen is soft, non-distended. Normal bowel sounds. No masses appreciated. No tenderness to palpation. No rebound, guarding, or rigidity noted. Neurological: A&O x4. No cranial nerve dysfunction observed. No truncal ataxia. Moves all extremities. Sensation intact. Psychiatric: Cooperative and interactive. Normal mood and affect. Constitutional Vital Signs, click to edit/add: Last Vital Signs Temp 97.9 F 12/11/23 10:07 Pulse 79 05/26/24 10:07 Resp 17 12/11/23 10:07 BP 122/72 12/11/23 10:07 Pulse Ox 95 12/11/23 10:07 O2 Del Method Room Air 12/11/23 10:07 Course Vital Signs Vital signs: Vital Signs Temperature 97.9 F 12/11/23 10:07 Pulse Rate 79 12/11/23 10:07 Respiratory Rate 17 12/11/23 10:07 Blood Pressure 122/72 12/11/23 10:07 Pulse Oximetry 95 12/11/23 10:07 Oxygen Delivery Method Room Air 12/11/23 10:07 Temperature 97.9 F 12/11/23 10:07 Pulse Rate 79 12/11/23 10:07 Respiratory Rate 17 12/11/23 10:07 Blood Pressure 122/72 12/11/23 10:07 Pulse Oximetry 95 12/11/23 10:07 Oxygen Delivery Method Room Air 12/11/23 10:07 Medical Decision Making MDM Narrative Medical decision making narrative: The patient was just here on the which was 2 days ago for the same presentation at that time she had a blood workup that was not showing anything positive for infection Right now the patient presentation is not showing any concern for infection is a healing wound I still explained to the and the that in case of any increase in dressing or any concern they are more than welcome to come back to the ER to be checked The patient is to follow up with primary care physician in next 2-3 days or to return to the emergency department should any of the signs or symptoms worsen or new symptoms develop. The patient agrees with the following Diagnosis and Treatment plan and the patient will be discharged home. Discharge Plan Discharge Stand Alone Forms: Portal Instructions Chief Complaint: Skin/Abscess/Foreign Body Clinical Impression: Visit for wound care Patient Disposition: Home, Self-Care Time of Disposition Decision: 10:31 Mode of Transportation: Private Vehicle Prescriptions / Home Meds: No Action furosemide 40 mg tablet 40 mg PO DAILY Entresto 49-51 mg tablet 1 tab PO BID tizanidine 4 mg tablet 8 mg PO .hs PRN (Reason: muscles cramps) Hold Instructions: Doctor's Order leflunomide 20 mg tablet 20 mg PO DAILY spironolactone 25 mg tablet 25 mg PO DAILY carvedilol 25 mg Tablet 25 mg PO Q12H Qty: 60 11RF hydrocodone-acetaminophen 5-325 mg tablet 1 tab PO Q6H PRN (Reason: pain) 5 Days Qty: 20 0RF Print Language: Nepali Instructions: Acute Wounds (DC) Referrals: Ti Garza MD [Primary Care Provider] - 1 week Discharge Date/Time: 12/11/23 10:47
== END 2023-12-11 10:47 | disposition home or self-care (01) ==
PROVIDERS: Emergency Provider Emergency Medicine; PCP Family Medicine
DX: Z09 Encounter for follow-up examination after completed treatment for conditions other than malignant neoplasm (principal)
CPT/HCPCS: 99281

== ENCOUNTER 2023-12-30 07:37 | Inpatient (IN) | payer BC, SELFPAY ==
[2023-12-30] VITALS (8 sets, daily range): BP systolic 95–144; BP diastolic 69–97; PULSE 63–107; TEMP 36.8–37.2; O2SAT 95–99; BMI 41.6; BMI 36.8
--- NOTE | 2023-12-30 07:51 | ED_ITS ---
HPI HPI - General Adult General Chief complaint: Skin/Abscess/Foreign Body Stated complaint: POST OPERATIVE COMPLICATIONS Time Seen by Provider: 12/30/23 07:38 Source: patient Mode of arrival: walk-in Limitations: no limitations History of Present Illness HPI narrative: 58-year-old female presents to the emergency department for chief complaint of concerns about her surgical wound. It has been leaking clear nonpurulent drainage. There is been no bleeding. She is worried about an infection. Several weeks ago she had surgery on her lumbar spine. She also complains of a headache but no fever or vomiting. Related Data Home Medications ?Medication ?Instructions ?Recorded ?Confirmed furosemide 40 mg tablet 40 mg PO DAILY 12/19/22 12/09/23 sacubitril 49 mg-valsartan 51 mg 1 tab PO BID 12/19/22 12/09/23 tablet (Entresto) tizanidine 4 mg tablet 8 mg PO .hs PRN muscles cramps 12/19/22 12/09/23 leflunomide 20 mg tablet 20 mg PO DAILY 11/22/23 12/09/23 spironolactone 25 mg tablet 25 mg PO DAILY 11/22/23 12/09/23 Previous Rx's ?Medication ?Instructions ?Recorded carvedilol 25 mg tablet 25 mg PO Q12H #60 tabs 12/05/23 hydrocodone 5 mg-acetaminophen 325 1 tab PO Q6H PRN pain 5 days #20 12/09/23 mg tablet tabs Allergies Allergy/AdvReac Type Severity Reaction Status Date / Time clobetasol [From Embeline] Allergy Severe shortness Verified 12/09/23 09:10 of breath sulfamethoxazole Allergy Severe Hives Verified 12/09/23 09:10 [From Bactrim] trimethoprim [From Bactrim] Allergy Severe Hives Verified 12/09/23 09:10 etanercept [From Enbrel] Allergy CHF Verified 12/09/23 09:10 methotrexate Allergy CHF Verified 12/09/23 09:10 Opioid HPI Opioid Management Most Recent Opioid Data: Last Pain Scale 5 12/30/23 08:21 Last ORT Total Score 1 12/02/23 15:40 Last ORT Risk Category Low Risk 12/02/23 15:40 Review of Systems ROS Narrative A ten point review of systems is negative except as noted above. PFSH PFSH Medical History (Updated 12/30/23 @ 10:00 by Eduardo Sahu MD) History of blood transfusion ?Z92.89 - Personal history of other medical treatment (ICD-10) Heartburn ?R12 - Heartburn (ICD-10) Pelvis fracture ?S32.9XXA - Fracture of unspecified parts of lumbosacral spine and pelvis, initial encounter for closed fracture (ICD-10) Rheumatoid arthritis ?M06.9 - Rheumatoid arthritis, unspecified (ICD-10) Arthritis ?M19.90 - Unspecified osteoarthritis, unspecified site (ICD-10) Plantar fasciitis ?M72.2 - Plantar fascial fibromatosis (ICD-10) Fibroma ?D21.9 - Benign neoplasm of connective and other soft tissue, unspecified (ICD-10) Vertigo ?R42 - Dizziness and giddiness (ICD-10) Diverticulosis ?K57.90 - Diverticulosis of intestine, part unspecified, without perforation or abscess without bleeding (ICD-10) Chronic combined systolic and diastolic heart failure ?I50.42 - Chronic combined systolic (congestive) and diastolic (congestive) heart failure (ICD-10) Snoring ?R06.83 - Snoring (ICD-10) Cardiomyopathy ?I42.9 - Cardiomyopathy, unspecified (ICD-10) Sleep apnea ?G47.30 - Sleep apnea, unspecified (ICD-10) Calcaneal fracture ?S92.009A - Unspecified fracture of unspecified calcaneus, initial encounter for closed fracture (ICD-10) Foot pain ?M79.673 - Pain in unspecified foot (ICD-10) Achilles tendinitis ?M76.60 - Achilles tendinitis, unspecified leg (ICD-10) Left ventricular systolic dysfunction ?I51.9 - Heart disease, unspecified (ICD-10) Tinea pedis ?B35.3 - Tinea pedis (ICD-10) Hematuria ?R31.9 - Hematuria, unspecified (ICD-10) Flank pain ?R10.9 - Unspecified abdominal pain (ICD-10) Postherpetic polyneuropathy ?B02.23 - Postherpetic polyneuropathy (ICD-10) Abdominal pain ?R10.9 - Unspecified abdominal pain (ICD-10) Epigastric pain ?R10.13 - Epigastric pain (ICD-10) Eczema ?L30.9 - Dermatitis, unspecified (ICD-10) Wrist pain ?M25.539 - Pain in unspecified wrist (ICD-10) Lumbar radiculopathy ?M54.16 - Radiculopathy, lumbar region (ICD-10) Diverticulitis ?K57.92 - Diverticulitis of intestine, part unspecified, without perforation or abscess without bleeding (ICD-10) Hip pain ?M25.559 - Pain in unspecified hip (ICD-10) Knee pain ?M25.569 - Pain in unspecified knee (ICD-10) Furuncle of axilla ?L02.429 - Furuncle of limb, unspecified (ICD-10) Hip strain ?S76.019A - Strain of muscle, fascia and tendon of unspecified hip, initial encounter (ICD-10) Bronchitis ?J40 - Bronchitis, not specified as acute or chronic (ICD-10) COVID-19 ?U07.1 - COVID-19 (ICD-10) Hypertension ?I10 - Essential (primary) hypertension (ICD-10) Nonischemic cardiomyopathy ?I42.8 - Other cardiomyopathies (ICD-10) Heart failure ?I50.9 - Heart failure, unspecified (ICD-10) Back pain ?M54.9 - Dorsalgia, unspecified (ICD-10) Lumbar spondylosis ?M47.816 - Spondylosis without myelopathy or radiculopathy, lumbar region (ICD-10) Lumbar stenosis with neurogenic claudication ?M48.062 - Spinal stenosis, lumbar region with neurogenic claudication (ICD- 10) Surgical History (Updated 11/22/23 @ 10:20 by Kierra Juarez NP) History of cholecystectomy ?Z90.49 - Acquired absence of other specified parts of digestive tract (ICD- 10) History of appendectomy ?Z90.49 - Acquired absence of other specified parts of digestive tract (ICD- 10) History of hysterectomy ?Z90.710 - Acquired absence of both cervix and uterus (ICD-10) History of bladder surgery ?Z98.890 - Other specified postprocedural states (ICD-10) H/O foot surgery ?Z98.890 - Other specified postprocedural states (ICD-10) Family History (Updated 11/22/23 @ 10:32 by Kierra Juarez NP) Other Family history of aneurysm Family history of diabetes mellitus Family history of hypertension Family history of myocardial infarction Family history of ovarian cancer Family history of stroke Social History (Updated 11/22/23 @ 10:28 by Kierra Juarez NP) Within the past year, how often did you have a drink containing alcohol: never Score interpretation: A score less than 3 is consistent with normal alcohol consumption. 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 General: The patient appears well and in no apparent distress. Patient is resting comfortably on cart. Skin: Warm, dry, no pallor noted. The surgical wound on her midline lumbar area is examined. There is no dehiscence. There is a firm white substance along the length of the wound. There is no purulent drainage. There are a few millimeters of erythema surrounding the surgical wound. Head: Normocephalic, atraumatic Eye: Normal conjunctiva, no drainage Ears, Nose, Mouth, and Throat: oral mucosa is moist. Nares patent. Cardiovascular: Regular Rate and Rhythm, minimal tachycardia Respiratory: Patient is in no distress, no accessory muscle use, lungs are clear to auscultation, no wheezing, rales or rhonchi Back: As above GI: Soft and nontender Musculoskeletal: The patient has no evidence of calf tenderness, no pitting edema, symmetrical pulses noted bilaterally Neurological: A&O, normal speech Psychiatric: Cooperative Constitutional Vital Signs, click to edit/add: Last Vital Signs Temp 98.9 F 12/30/23 07:45 Pulse 107 H 12/30/23 07:45 Resp 18 12/30/23 07:45 BP 144/97 H 12/30/23 07:45 Pulse Ox 99 12/30/23 07:45 O2 Del Method Room Air 12/30/23 07:45 Course Vital Signs Vital signs: Vital Signs Temperature 98.9 F 12/30/23 07:45 Pulse Rate 107 H 12/30/23 07:45 Respiratory Rate 18 12/30/23 07:45 Blood Pressure 144/97 H 12/30/23 07:45 Pulse Oximetry 99 12/30/23 07:45 Oxygen Delivery Method Room Air 12/30/23 07:45 Temperature 98.9 F 12/30/23 07:45 Pulse Rate 107 H 12/30/23 07:45 Respiratory Rate 18 12/30/23 07:45 Blood Pressure 144/97 H 12/30/23 07:45 Pulse Oximetry 99 12/30/23 07:45 Oxygen Delivery Method Room Air 12/30/23 07:45 Medical Decision Making MDM Narrative Medical decision making narrative: WBC is 18,000. There is no drainage currently to culture. She was given IV Ancef after consulting with Dr. Saint Hull and the patient is being admitted. Differential Diagnosis Differential Diagnosis: Cellulitis, abscess Lab Data Lab results reviewed: Yes I reviewed the patient's lab results Labs: Lab Results 12/30/23 Range/Units 08:45 WBC 18.1 H (4.0-11.0) 10^3/uL RBC 3.57 L (4.20-5.40) 10^6/uL Hgb 10.8 L (12.0-16.0) g/dL Hct 32.7 L (36.0-48.0) % MCV 91.6 (81.0-99.0) fL MCH 30.3 (26.7-34.0) pg MCHC 33.0 (29.9-35.2) g/dL RDW 12.9 (11.0-15.0) % Plt Count 232 (150-450) 10^3/uL MPV 10.2 (9.5-13.5) fL Neut % (Auto) 82.7 H (43.0-75.0) % Lymph % (Auto) 5.9 L (20.5-60.0) % [place] % (Auto) 10.2 (1.7-12.0) % Eos % (Auto) 0.1 L (0.9-7.0) % Baso % (Auto) 0.4 (0.2-2.0) % Neut # (Auto) 15.0 H (1.4-6.5) 10^3/uL Lymph # (Auto) 1.1 L (1.2-3.8) 10^3/uL [place] # (Auto) 1.8 H (0.3-0.8) 10^3/uL Eos # (Auto) 0.0 (0.0-0.7) 10^3/uL Baso # (Auto) 0.1 (0.0-0.1) 10^3/uL Abs Immat Gran (auto) 0.13 H (0.00-0.03) 10^3/uL Imm/Tot Granulo (auto) 0.7 H (0.0-0.5) % Sodium 135 L (136-145) mmol/L Potassium 3.2 L (3.5-5.1) mmol/L Chloride 96 L (98-107) mmol/L Carbon Dioxide 27.0 (21.0-32.0) mmol/L Anion Gap 15.2 BUN 21.0 H (7.0-18.0) mg/dL Creatinine 1.19 H (0.55-1.02) mg/dL Est GFR ( Amer) 57 L (>=60) Est GFR (Non-Af Amer) 47 L (>=60) BUN/Creatinine Ratio 17.6 Glucose 131 H (74-106) mg/dL Calcium 8.8 (8.5-10.1) mg/dL Discharge Plan Discharge Chief Complaint: Skin/Abscess/Foreign Body Clinical Impression: Cellulitis Patient Disposition: Admitted As Inpatient Time of Disposition Decision: 09:59 Condition: Good
--- OUTSIDE RECORDS SUMMARY | 2023-12-30 08:00 | XMS_ITS | CCD ---
Author Organization [facility] Care Team Providers Care Wire Fence Erector Name Role Phone PHYSICIAN, DEFAULT Unavailable Unavailable [...] Primary Care Provider MATTHEW Bridges Emergency Provider [phone] MD Kyle Call II Attending Provider Kyle Call II Unavailable MD Jose Antonio Garza Primary Care Provider MATTHEW Bridges Emergency Provider [phone] MD Kyle Call II Attending Provider [phone] MD Jose Antonio Garza Primary Care Provider MD Kyle Call II Attending Provider MD Kyle Calderon Attending Provider [phone] DR JSOE ANTONIO SHINE Attending Unavailable KAI ., DR [...] Unavailable HOY ., DR BRADY Admitting Unavailable [place], DR UNA Mims Consulting Unavailable Nancy Kapadia Unavailable Maxi Glez Unavailable MD Jose Antonio Garza Primary Care Provider MD Jose Antonio Garza Primary Care Provider MD Kyle Calderon Attending Provider [phone] Jose Antonio Garza MD Primary Care Provider [phone] MD Jose Antonio Garza Primary Care Provider [...] Trimethoprim; Translations: [SULFAMETHOXAZOLE-TR IMETHOPRIM] Drug Allergy 7 [facility] Repository (20 sources) Etanercept; Translations: [etanercept] Drug Allergy 1 Unknown (qualifier value), Unknown [facility] (20 sources) Methotrexate; Translations: [methotrexate] Drug Allergy 1 Unknown [facility] (20 sources) Sulfamethoxazole / Trimethoprim; Translations: [Bactrim DS TABS] Drug Allergy [facility] (10 sources) Sulfamethoxazole; Translations: [sulfamethoxazole] Drug Allergy 7 [facility] (10 sources) Trimethoprim; Translations: [trimethoprim] Drug Allergy 7 [facility] (2 sources) Etanercept; Translations: [Enbrel] Drug Allergy 1 [facility] Repository (1 source) Methotrexate Drug Allergy 1 [facility] Repository (3 sources) Sulfamethoxazole / Trimethoprim; Translations: [Bactrim] Drug Allergy 4 [facility] Repository (1 source) Etanercept Drug Allergy 3 [facility] Repository (1 source) Methotrexate Drug Allergy 3 [facility] Repository Medications Current Medications Medication Drug [...] day(s), # 20 tab(s), Refills(s) 0, Pharmacy: [facility], 155, cm, 02/24/23 12:00:00 EDT, Height/Length [...] Daily, # 30 tab(s), Refills(s) 0, Pharmacy: [facility] 1985 Start Date: 12/07/16 Status: Ordered homatropine [...] pain, # 20 tab(s), Refills(s) 0, Pharmacy: [facility] 1985, 152.4, cm, 05/21/21 7:42:00 [...] As Directed, 6tab/day x7days,5tab/day x7days,4tab/day x7day,3tab/day x7day,2tab/day x7day,1tab/jfgi0jxb, # 119 tab(s), Refills(s) 0, Pharmacy: [facility] Start Date: 12/07/16 Status: Ordered take 1 tablet by neida th every twenty-four hours predniSONE 20 MG 1 tablet Orally Once a day Active Rituxan (2 sources) [id number] Cytolytic Antibody Start: 05-19-2022 Rituxan Refills(s) 0 [...] days, # 30 cap(s), Refills(s) 0, Pharmacy: [facility] 1985, 155, cm, 02/24/23 12:00:00 EDT, [...] group home (current) drug therapy; Translations: [Other group home (current) drug therapy] Onset: 09-27-2023 Episodic Other [...] week; will D/C at her request. Normal [facility] Nonvisit Note - PTon 024 Nonvisit Note - PT Cxl per patient. No message. Conf 11/14 Normal [facility] PT - Assessmentson PT - Assessments [id number]# 1.00TIFF Normal [facility] PT - Consentson 11-01-2023 PT - Consents [id number]# 1.00TIFF Normal [facility] PT - Home Exercise Programon 11-01-2023 PT - Home Exercise Program [id number]# 1.00TIFF Normal [facility] Consent for Treatmenton 10-16 Consent for Treatment [id number]#1 .00TIFF Normal [facility] PT - Orderson 10-28-2023 PT - Orders [id number]#1 .00TIFF Normal [facility] Complete Blood Count Auto Di ffon 09-27-2023 Basophils (Bld) [#/Vol] 0.1 10*3/uL Normal 0.0-0.2 [facility] Comment on above: Performed By: #### E SR, CBC, HEPATIC, CREAT #### [address] Basophils/100 WBC (Bld) 0.9 % Normal . [facility] Comment on above: Performed By: #### E SR, CBC, HEPATIC, CREAT #### [address] Eosinophils (Bld) [#/Vol] 0.1 10*3/uL Normal 0.0-0.45 [facility] Comment on above: Performed By: #### E SR, CBC, HEPATIC, CREAT #### [address] Eosinophils/100 WBC (Bld) 1.5 % Normal . [facility] Comment on above: Performed By: #### E SR, CBC, HEPATIC, CREAT #### [address] Erythrocyte distribution width (RBC) [Ratio] 13.6 % Normal 11.9-15.3 [facility] Comment on above: Performed By: #### E SR, CBC, HEPATIC, CREAT #### [address] Hematocrit (Bld) [Volume fraction] 37.3 % Normal 34.0-46.4 [facility] Comment on above: Performed By: #### E SR, CBC, HEPATIC, CREAT #### [address] Hemoglobin (Bld) [Mass/Vol] 12.5 g/dL Normal 11.8-15.4 [facility] Comment on above: Performed By: #### E SR, CBC, HEPATIC, CREAT #### [address] Lymphocytes (Bld) [#/Vol] 2.0 10*3/uL Normal 1.00-4.8 [facility] Comment on above: Performed By: #### E SR, CBC, HEPATIC, CREAT #### [address] Lymphocytes/100 WBC (Bld) 22.4 % Normal . [facility] Comment on above: Performed By: #### E SR, CBC, HEPATIC, CREAT #### [facility] [address] MCH (RBC) [Entitic mass] 30.9 pg Normal 24.7-34.3 [facility] Comment on above: Performed By: #### E SR, CBC, HEPATIC, CREAT #### [address] MCV (RBC) [Entitic vol] 92.4 fL Normal 80-100 [facility] Comment on above: Performed By: #### E SR, CBC, HEPATIC, CREAT #### [address] Mean Corpuscular HGB Conc 33.4 g/dL Normal 32.0-35.0 [facility] Comment on above: Performed By: #### E SR, CBC, HEPATIC, CREAT #### [address] Monocytes (Bld) [#/Vol] 0.7 10*3/uL Normal 0.0-0.8 [facility] Comment on above: Performed By: #### E SR, CBC, HEPATIC, CREAT #### [address] Monocytes/100 WBC (Bld) 7.3 % Normal . [facility] Comment on above: Performed By: #### E SR, CBC, HEPATIC, CREAT #### [address] Neutrophils (Bld) [#/Vol] 6.1 10*3/uL Normal 1.8-7.7 [facility] Comment on above: Performed By: #### E SR, CBC, HEPATIC, CREAT #### [place] [address] [place] Neutrophils/100 WBC (Bld) 67.9 % Normal . [facility] Comment on above: Performed By: #### E SR, CBC, HEPATIC, CREAT #### [address] NRBC% 0.1 /100{WBC} Normal 0-0.5 [facility] Comment on above: Performed By: #### E SR, CBC, HEPATIC, CREAT #### [address] Platelet mean volume (Bld) [Entitic vol] 8.8 fL Normal 6.3-10.7 [facility] Comment on above: Performed By: #### E SR, CBC, HEPATIC, CREAT #### [address] Platelets (Bld) [#/Vol] 212 10*3/uL Normal 150-450 [facility] Comment on above: Performed By: #### E SR, CBC, HEPATIC, CREAT #### [address] RBC (Bld) [#/Vol] 4.03 10*6/uL Normal 3.60-5.00 [facility] Comment on above: Performed By: #### E SR, CBC, HEPATIC, CREAT #### [address] WBC (Bld) [#/Vol] 8.9 10*3/uL Normal 3.8-11.6 [facility] Comment on above: Performed By: #### E SR, CBC, HEPATIC, CREAT #### [address] Creatinineon 09-27-2023 Creatinine [Mass/Vol] 0.88 mg/dL Normal 0.60-1.20 [facility] Comment on above: Performed By: #### E SR, CBC, HEPATIC, CREAT #### [address] GFR/1.73 sq M.predicted MDRD (S/P/Bld) [Vol rate/Area] mL/min/{1.73_m2} Normal [facility] Comment on above: Result Comment: PERF ORMED BY: [place] [address] PATHOLOGIST BOX CAR CHECKER TAMERA DAO M.D. Performed By: #### E SR, CBC, HEPATIC, CREAT #### [facility] [address] Erythrocyte Sedimentation Ra moon 09-27-2023 ESR (Bld) [Velocity] 27 mm/h Normal 0-29 [facility] Comment on above: Result Comment: PERF ORMED BY: [place] [address] PATHOLOGIST BOX CAR CHECKER TAMERA DAO M.D. Performed By: #### E SR, CBC, HEPATIC, CREAT #### [facility] [address] Hepatic Panelon 09-27-2023 Albumin [Mass/Vol] 4.1 g/dL Normal 3.5-5.7 [facility] Comment on above: Performed By: #### E SR, CBC, HEPATIC, CREAT #### [facility] [address] [place] [address] Albumin/Globulin [Mass ratio] 1.9 {ratio} Normal [facility] Comment on above: Performed By: #### E SR, CBC, HEPATIC, CREAT #### [facility] [address] [place] [address] ALP [Catalytic activity/Vol] 107 U/L High 34-104 [facility] Comment on above: Performed By: #### E SR, CBC, HEPATIC, CREAT #### [facility] [address] [place] [address] ALT [Catalytic activity/Vol] 72 U/L High 7-52 [facility] Comment on above: Performed By: #### E SR, CBC, HEPATIC, CREAT #### [facility] [address] [place] [address] [place] AST [Catalytic activity/Vol] 81 U/L High 13-39 [facility] Comment on above: Performed By: #### E SR, CBC, HEPATIC, CREAT #### [facility] [address] [place] [address] Bilirubin [Mass/Vol] 0.6 mg/dL Normal 0.3-1.0 [facility] Comment on above: Performed By: #### E SR, CBC, HEPATIC, CREAT #### [facility] [address] Bilirubin,Indirect 0.5 mg/dL Normal [facility] Comment on above: Performed By: #### E SR, CBC, HEPATIC, CREAT #### [facility] [address] Bilirubin.indirect [Mass/Vol] 0.10 mg/dL Normal 0.03-0.18 [facility] Comment on above: Performed By: #### E SR, CBC, HEPATIC, CREAT #### [facility] [address] Globulin (S) [Mass/Vol] 2.2 g/dL Normal [facility] Comment on above: Performed By: #### E SR, CBC, HEPATIC, CREAT #### [facility] [address] Protein [Mass/Vol] 6.3 g/dL Low 6.4-8.9 [facility] Comment on above: Performed By: #### E SR, CBC, HEPATIC, CREAT #### [facility] [address] COVID-19 / Flu A/B / RSV [...] or Cepheid Disclaimer revoked sooner. PERFORMED BY: [place] [address] PATHOLOGIST BOX CAR CHECKER TAMERA DAO M.D. Normal [facility] Comment on above: Performed By: #### E SR, CBC, HEPATIC, CREAT #### [address] Cepheid COVID PCR Positiveon 06-01-2023 SARS-CoV-2 (COVID-19) RNA NANCY+probe Ql (Unsp spec) Positive Critically abnormal Negative [facility] Comment on above: Result Comment: This is a duplicate Cepheid Xpert Xpress CoV-2/Flu/RSV Plus RNA by RT-PCR result to be used for statistical tracking purpose only. PERFORMED BY: [place] [address] PATHOLOGIST BOX CAR CHECKER TAMERA DAO M.D. Performed By: #### E SR, CBC, HEPATIC, CREAT #### [facility] [address] [place] [address] [place] XR chest 2V*on 06-01-2023 XR chest 2V* [facility] [address] [place] [address] XRay Report Signed Patient: Felicity Phillips MR#: [id number] [birth year] : 1965 Acct:[id number] Age/Sex: 57 / F ADM Date: 05/31/23 Loc: ER Room: Type: [facility] ER Attending Dr: Copies to: Stef [...] Sally Colón M.D.06/01/2023 7:21 AM Dictation Location: [place] [address] Transcribed By: [facility] 06/01/23720 Dictated By: Sally Colón MD 06/01/23719 Signed By: 06/01/23 0721 Normal [facility] COVID CepheidOrdered By: Kory Molina on 05-31-2023 SARS-CoV-2 (COVID-19) Ab IA Ql Positive Negative [facility] Comment on above: This is a duplicate Cepheid Xpert Xpress CoV-2/Flu/RSV Plus RNA by RT-PCR result to be used for statistical tracking purpose only. SARS-CoV-2 (COVID-19) RNA NANCY+probe Ql (Unsp spec) [facility] Alanine aminotransferase [En zymatic activity/volume] in Serum or PlasmaOrdered By: Kyle Calderon on 04-28-2023 ALT [Catalytic activity/Vol] 58 U/L 7-52 [facility] Albumin [Mass/volume] in Ser um or Plasma by Bromocresol green (BCG) dye binding methoOrdered By: Kyle Calderon on 04-28-2023 Albumin BCG dye [Mass/Vol] 4.2 g/dL 3.5-5.7 [facility] Alkaline phosphatase [Enzyma tic activity/volume] in Serum or PlasmaOrdered By: Kyle Calderon on 04-28-2023 ALP [Catalytic activity/Vol] 102 U/L 34-104 [facility] Aspartate aminotransferase [ Enzymatic activity/volume] in Serum or PlasmaOrdered By: Kyle Calderon on 04-28-2023 AST [Catalytic activity/Vol] 53 U/L 13-39 [facility] Basophils Auto (Bld) [#/Vol] Ordered By: Kyle Calderon on 04-28-2023 Basophils (Bld) [#/Vol] 0.1 10*3/uL 0.0-0.2 [facility] Basophils/100 WBC Auto (Bld) Ordered By: Kyle Calderon on 04-28-2023 Basophils/100 WBC (Bld) 1.3 % . [facility] Bilirubin.direct [Mass/volum e] in Serum or PlasmaOrdered By: Kyle Calderon on 04-28-2023 Bilirubin.direct [Mass/Vol] 0.10 mg/dL 0.03-0.18 [facility] Bilirubin.total [Mass/volume ] in Serum or PlasmaOrdered By: Kyle Calderon on 04-28-2023 Bilirubin [Mass/Vol] 0.8 mg/dL 0.3-1.0 [facility] Complete Blood Count Auto Di ffon 04-28-2023 Basophils (Bld) [#/Vol] 0.1 10*3/uL Normal 0.0-0.2 [facility] Comment on above: Performed By: #### E SR, CBC, HEPATIC, CREAT #### [facility] [address] [place] [id number] [facility] Basophils/100 WBC (Bld) 1.3 % Normal . [facility] Comment on above: Performed By: #### E SR, CBC, HEPATIC, CREAT #### [facility] [address] [place] [address] Eosinophils (Bld) [#/Vol] 0.2 10*3/uL Normal 0.0-0.45 [facility] Comment on above: Performed By: #### E SR, CBC, HEPATIC, CREAT #### [address] Eosinophils/100 WBC (Bld) 3.2 % Normal . [facility] Comment on above: Performed By: #### E SR, CBC, HEPATIC, CREAT #### [address] Erythrocyte distribution width (RBC) [Ratio] 13.5 % Normal 11.9-15.3 [facility] Comment on above: Performed By: #### E SR, CBC, HEPATIC, CREAT #### [address] Hematocrit (Bld) [Volume fraction] 36.5 % Normal 34.0-46.4 [facility] Comment on above: Performed By: #### E SR, CBC, HEPATIC, CREAT #### [address] Hemoglobin (Bld) [Mass/Vol] 12.3 g/dL Normal 11.8-15.4 [facility] Comment on above: Performed By: #### E SR, CBC, HEPATIC, CREAT #### [address] Lymphocytes (Bld) [#/Vol] 1.5 10*3/uL Normal 1.00-4.8 [facility] Comment on above: Performed By: #### E SR, CBC, HEPATIC, CREAT #### [place] [address] [place] Lymphocytes/100 WBC (Bld) 20.3 % Normal . [facility] Comment on above: Performed By: #### E SR, CBC, HEPATIC, CREAT #### [address] MCH (RBC) [Entitic mass] 31.2 pg Normal 24.7-34.3 [facility] Comment on above: Performed By: #### E SR, CBC, HEPATIC, CREAT #### [facility] [address] [place] [address] MCV (RBC) [Entitic vol] 92.2 fL Normal 80-100 [facility] Comment on above: Performed By: #### E SR, CBC, HEPATIC, CREAT #### [address] Mean Corpuscular HGB Conc 33.8 g/dL Normal 32.0-35.0 [facility] Comment on above: Performed By: #### E SR, CBC, HEPATIC, CREAT #### [address] Monocytes (Bld) [#/Vol] 0.6 10*3/uL Normal 0.0-0.8 [facility] Comment on above: Performed By: #### E SR, CBC, HEPATIC, CREAT #### [address] Monocytes/100 WBC (Bld) 9.0 % Normal . [facility] Comment on above: Performed By: #### E SR, CBC, HEPATIC, CREAT #### [address] Neutrophils (Bld) [#/Vol] 4.8 10*3/uL Normal 1.8-7.7 [facility] Comment on above: Performed By: #### E SR, CBC, HEPATIC, CREAT #### [address] Neutrophils/100 WBC (Bld) 66.2 % Normal . [facility] Comment on above: Performed By: #### E SR, CBC, HEPATIC, CREAT #### [address] NRBC% 0.1 /100{WBC} Normal 0-0.5 [facility] Comment on above: Performed By: #### E SR, CBC, HEPATIC, CREAT #### [address] Platelet mean volume (Bld) [Entitic vol] 8.7 fL Normal 6.3-10.7 [facility] Comment on above: Performed By: #### E SR, CBC, HEPATIC, CREAT #### [facility] [address] Platelets (Bld) [#/Vol] 202 10*3/uL Normal 150-450 [facility] Comment on above: Performed By: #### E SR, CBC, HEPATIC, CREAT #### [address] RBC (Bld) [#/Vol] 3.96 10*6/uL Normal 3.60-5.00 [facility] Comment on above: Performed By: #### E SR, CBC, HEPATIC, CREAT #### [address] WBC (Bld) [#/Vol] 7.2 10*3/uL Normal 3.8-11.6 [facility] Comment on above: Performed By: #### E SR, CBC, HEPATIC, CREAT #### [address] Creatinineon 04-28-2023 Creatinine [Mass/Vol] 0.70 mg/dL Normal 0.60-1.20 [facility] Comment on above: Performed By: #### E SR, CBC, HEPATIC, CREAT #### [address] GFR/1.73 sq M.predicted MDRD (S/P/Bld) [Vol rate/Area] mL/min/{1.73_m2} Normal [facility] Comment on above: Result Comment: PERF ORMED BY: [place] [address] PATHOLOGIST BOX CAR CHECKER TAMERA DAO M.D. Performed By: #### E SR, CBC, HEPATIC, CREAT #### [address] Creatinine [Mass/volume] in Serum or PlasmaOrdered By: Kyle Calderon on 04-28-2023 Creatinine [Mass/Vol] 0.70 mg/dL 0.60-1.20 [facility] Eosinophils Auto (Bld) [#/Vo l]Ordered By: Kyle Calderon on 04-28-2023 Eosinophils (Bld) [#/Vol] 0.2 10*3/uL 0.0-0.45 [facility] Eosinophils/100 WBC Auto (Bl d)Ordered By: Kyle Calderon on 04-28-2023 Eosinophils/100 WBC (Bld) 3.2 % . [facility] Erythrocyte Sedimentation Ra moon 04-28-2023 ESR (Bld) [Velocity] 24 mm/h Normal 0-29 [facility] Comment on above: Result Comment: PERF ORMED BY: [place] [address] PATHOLOGIST BOX CAR CHECKER TAMERA DAO M.D. Performed By: #### E SR, CBC, HEPATIC, CREAT #### [address] Erythrocyte distribution wid th Auto (RBC) [Ratio]Ordered By: Kyle Calderon on 04-28-2023 Erythrocyte distribution width (RBC) [Ratio] 13.5 % 11.9-15.3 [facility] Erythrocyte sedimentation ra te by Photometric methodOrdered By: Kyle Calderon on 04-28-2023 ESR Photometric method (Bld) [Velocity] 24 mm/hr 0-29 [facility] Globulin Calc (S) [Mass/Vol] Ordered By: Kyle Calderon on 04-28-2023 Globulin (S) [Mass/Vol] 1.9 g/dL [facility] Hematocrit Auto (Bld) [Volum e fraction]Ordered By: Kyle Calderon on 04-28-2023 Hematocrit (Bld) [Volume fraction] 36.5 % 34.0-46.4 [facility] Hemoglobin [Mass/volume] in BloodOrdered By: Kyle Calderon on 04-28-2023 Hemoglobin (Bld) [Mass/Vol] 12.3 g/dL 11.8-15.4 [facility] Hepatic Panelon 04-28-2023 Albumin [Mass/Vol] 4.2 g/dL Normal 3.5-5.7 [facility] Comment on above: Performed By: #### E SR, CBC, HEPATIC, CREAT #### [facility] [address] Albumin/Globulin [Mass ratio] 2.2 {ratio} Normal [facility] Comment on above: Performed By: #### E SR, CBC, HEPATIC, CREAT #### [facility] [address] ALP [Catalytic activity/Vol] 102 U/L Normal 34-104 [facility] Comment on above: Performed By: #### E SR, CBC, HEPATIC, CREAT #### [facility] [address] ALT [Catalytic activity/Vol] 58 U/L High 7-52 [facility] Comment on above: Performed By: #### E SR, CBC, HEPATIC, CREAT #### [facility] [address] AST [Catalytic activity/Vol] 53 U/L High 13-39 [facility] Comment on above: Performed By: #### E SR, CBC, HEPATIC, CREAT #### [facility] [address] [place] [address] [place] Bilirubin [Mass/Vol] 0.8 mg/dL Normal 0.3-1.0 [facility] Comment on above: Performed By: #### E SR, CBC, HEPATIC, CREAT #### [facility] [address] [place] [address] [place] Bilirubin,Indirect 0.7 mg/dL Normal [facility] Comment on above: Performed By: #### E SR, CBC, HEPATIC, CREAT #### [facility] [address] [place] [address] [place] Bilirubin.indirect [Mass/Vol] 0.10 mg/dL Normal 0.03-0.18 [facility] Comment on above: Performed By: #### E SR, CBC, HEPATIC, CREAT #### [facility] [address] Globulin (S) [Mass/Vol] 1.9 g/dL Normal [facility] Comment on above: Performed By: #### E SR, CBC, HEPATIC, CREAT #### [facility] [address] Protein [Mass/Vol] 6.1 g/dL Low 6.4-8.9 [facility] Comment on above: Performed By: #### E SR, CBC, HEPATIC, CREAT #### [facility] [address] Leukocytes [#/volume] correc edd for nucleated erythrocytes in Blood by Automated counOrdered By: Kyle Calderon on 04-28-2023 WBC corrected for nucl RBC Auto (Bld) [#/Vol] 7.2 10*3/uL 3.8-11.6 [facility] Lymphocytes Auto (Bld) [#/Vo l]Ordered By: Kyle Calderon on 04-28-2023 Lymphocytes (Bld) [#/Vol] 1.5 10*3/uL 1.00-4.8 [facility] Lymphocytes/100 WBC Auto (Bl d)Ordered By: Kyle Calderon on 04-28-2023 Lymphocytes/100 WBC (Bld) 20.3 % . [facility] MCH Auto (RBC) [Entitic mass ]Ordered By: Kyle Calderon on 04-28-2023 MCH (RBC) [Entitic mass] 31.2 pg 24.7-34.3 [facility] MCHC Auto (RBC) [Mass/Vol]Or dered By: Kyle Calderon on 04-28-2023 MCHC (RBC) [Mass/Vol] 33.8 g/dL 32.0-35.0 [facility] MCV Auto (RBC) [Entitic vol] Ordered By: Kyle Calderon on 04-28-2023 MCV (RBC) [Entitic vol] 92.2 fL 80-100 [facility] Monocytes Auto (Bld) [#/Vol] Ordered By: Kyle Calderon on 04-28-2023 Monocytes (Bld) [#/Vol] 0.6 10*3/uL 0.0-0.8 [facility] Monocytes/100 WBC Auto (Bld) Ordered By: Kyle Calderon on 04-28-2023 Monocytes/100 WBC (Bld) 9.0 % . [facility] Neutrophils Auto (Bld) [#/Vo l]Ordered By: Kyle Calderon on 04-28-2023 Neutrophils (Bld) [#/Vol] 4.8 10*3/uL 1.8-7.7 [facility] Neutrophils/100 WBC Auto (Bl d)Ordered By: Kyle Calderon on 04-28-2023 Neutrophils/100 WBC (Bld) 66.2 % . [facility] No Panel InformationOrdered By: Kyle Calderon on 04-28-2023 Estimated GFR (CKD-EPI) > 60.0 mL/Min [facility] Creatinine Clearance (Chem N/A [facility] Nucleated erythrocytes [Pres ence] in Blood by Automated countOrdered By: Kyle Calderon on 04-28-2023 Nucleated RBC Auto Ql (Bld) 0.1 /100{WBC} 0-0.5 [facility] Platelet mean volume Auto (B ld) [Entitic vol]Ordered By: Kyle Calderon on 04-28-2023 Platelet mean volume (Bld) [Entitic vol] 8.7 fL 6.3-10.7 [facility] Platelets Auto (Bld) [#/Vol] Ordered By: Kyle Calderon on 04-28-2023 Platelets (Bld) [#/Vol] 202 10*3/uL 150-450 [facility] Protein [Mass/volume] in Ser um or PlasmaOrdered By: Kyle Calderon on 04-28-2023 Protein [Mass/Vol] 6.1 g/dL 6.4-8.9 [facility] RBC Auto (Bld) [#/Vol]Ordere d By: Kyle Calderon on 04-28-2023 RBC (Bld) [#/Vol] 3.96 10*6/uL 3.60-5.00 [facility] Serum or plasma albumin/glob ulin mass ratioOrdered By: Kyle Calderon on 04-28-2023 Albumin/Globulin [Mass ratio] 2.2 {ratio} [facility] Serum or plasma non-glucuron idated bilirubin measurement (mass/volume)Ordered By: Kyle Calderon on 04-28-2023 Bilirubin.indirect [Mass/Vol] 0.7 mg/dL [facility] WBC Auto (Bld) [#/Vol]Ordere d By: Kyle Calderon on 04-28-2023 WBC (Bld) [#/Vol] 7.2 10*3/uL 3.8-11.6 [facility] Consent for Treatmenton 02-15 Consent for Treatment [id number]:127 Normal [facility] Discharge Instructionson Discharge Instructions [id number]:127 Normal [facility] ED Clinical Summaryon 2022 ED Clinical Summary [place] [id number] ED Clinical Summary Person Information Name: FELICITY PHILLIPS [facility] Age: 57 Years : 1965 Sex: Female Language: Burmese PCP: Jose Antonio Garza MD Marital Status: [...] 02/24/2023 13:18:12 02/24/2023 13:18:12 02/24/2023 13:18:12 ADDRESS: [address] [place] [id number] PHYS DOC NOTES: MEDICAL INFORMATION: Prescriptions Given: New Medications [facility], [address] [place], [place] [id number], [phone] cephalexin (Keflex 500 mg Cap) 1 Capsules [...] up: With: Address: When: Jose Antonio Garza [address] [place] [address], [address] [place] [id number] Business (1) In 3 days 02/27/2023 DIAGNOSIS: Abscess; Cellulitis Normal [facility] ED Note-Physicianon 02-25-20 ED Note-Physician Basic [...] days, # 30 cap(s), Refills(s) 0, Pharmacy: [facility] 1985, 155, cm, 02/24/23 12:00:00 EDT, Height/Length Dosing, 108.2, kg, 02/24/23 12:00:00 EDT, Weight Dosing doxycycline, 100 mg = 1 tab(s), Oral, BID, X 10 day(s), # 20 tab(s), Refills(s) 0, Pharmacy: [facility] 1985, 155, cm, 02/24/23 12:00:00 [...] Garza In 3 days 02/27/2023 EDT [address] [facility] [facility] [place] [address] [address] [place] [address]- Business (1) Additional Instructions: Patient Education Skin Abscess Cellulitis, Adult Attestation Patient seen and evaluated by the physician assistant center director. Attending physician was present in the emergency department and supervised care. This visit was performed by both the physician and an APC. I performed all aspects of the MDM as documented. This report was transcribed using voice recognition software. Every effort was made to ensure accuracy, however, inadvertently computerized asphalt plant laborer mistakes may be present. Appropriate healthcare PPE [...] Keflex 5 (more content not included)... Normal [facility] Comment on above: Result Comment: Elec [...] these instructions at home: Medicines ? Take [id number] and prescription medicines only as told by [...] and water are not available, use hand lead pharmacy technician. ? Check your abscess every day for [...] care pro (more content not included)... Normal [facility] ED Patient Summaryon 023 ED Patient Summary [address] [address] Patient Discharge Instructions Person Information Name: FELICITY PHILLIPS Age: 57 Years Arrival Date: 02/24/2023 11:52:40 Discharge Diagnosis: Abscess; Cellulitis Primary Care Physician: Jose Antonio Garza MD Provider Information Primary Provider: Briana Winters M.D. Advanced Dental Assisting Instructor:Rodrick Mobley PA-C The exam and treatment you received in the Emergency Department were for an urgent problem and are not intended as complete care. It is important that you follow up with a doctor, nurse practitioner, or physician?s assistant center director for ongoing care. If your symptoms become [...] Instructions: With: Address: When: Jose Antonio Fortejenifer [address] [place] [address], [place] [address] Business (1) In 3 days 02/27/2023 In the event that this physician does not participate in your insurance network, please consult with your insurance company to find a nearby participating provider. Patient Education Materials: Skin Abscess; Cellulitis, Adult A MESSAGE TO ALL PATIENTS REGARDING OPIOIDS PRESCRIPTION OPIOIDS: WHAT YOU NEED TO KNOW Prescription opioids can be used to help relieve hujfkcka-su-zgmdph pain and are often prescribed following a [...] be struggling with addiction, tell your health career orientation teacher and ask for guidance or call [facility]?S National Helpline at 7-456-349-DVFU. (more content not included)... Normal [facility] Alanine aminotransferase [En zymatic activity/volume] in Serum or PlasmaOrdered By: Kyle Calderon on 01-05-2023 ALT [Catalytic activity/Vol] 41 U/L 7-52 [facility] Albumin [Mass/volume] in Ser um or Plasma by Bromocresol green (BCG) dye binding methoOrdered By: Kyle Calderon on 01-05-2023 Albumin BCG dye [Mass/Vol] 4.4 g/dL 3.5-5.7 [facility] Alkaline phosphatase [Enzyma tic activity/volume] in Serum or PlasmaOrdered By: Kyle Calderon on 01-05-2023 ALP [Catalytic activity/Vol] 93 U/L 34-104 [facility] Anisocytosis LM Ql (Bld)Orde red By: Kyle Calderon on 01-05-2023 Anisocytosis Ql (Bld) Slight [facility] Aspartate aminotransferase [ Enzymatic activity/volume] in Serum or PlasmaOrdered By: Kyle Calderon on 01-05-2023 AST [Catalytic activity/Vol] 19 U/L 13-39 [facility] Band form neutrophils/100 WB C Manual cnt (Bld)Ordered By: Kyle Calderon on 01-05-2023 Band form neutrophils/100 WBC (Bld) 1 % 0-5 [facility] Basophils Auto (Bld) [#/Vol] Ordered By: Kyle Calderon on 01-05-2023 Basophils (Bld) [#/Vol] N/A [facility] Basophils/100 WBC Auto (Bld) Ordered By: Kyle Calderon on 01-05-2023 Basophils/100 WBC (Bld) N/A [facility] Basophils/100 WBC Manual cnt (Bld)Ordered By: Kyle Calderon on 01-05-2023 Basophils/100 WBC (Bld) 0 % 0-2 [facility] Bilirubin.direct [Mass/volum e] in Serum or PlasmaOrdered By: Kyle Calderon on 01-05-2023 Bilirubin.direct [Mass/Vol] 0.10 mg/dL 0.03-0.18 [facility] Bilirubin.total [Mass/volume ] in Serum or PlasmaOrdered By: Kyle Calderon on 01-05-2023 Bilirubin [Mass/Vol] 0.6 mg/dL 0.3-1.0 [facility] Creatinineon 01-05-2023 Creatinine [Mass/Vol] 0.85 mg/dL Normal 0.60-1.20 [facility] Comment on above: Performed By: #### E SR, CBC, HEPATIC, CREAT #### [facility] [address] [place] [address] [place] GFR/1.73 sq M.predicted MDRD (S/P/Bld) [Vol rate/Area] mL/min/{1.73_m2} Normal [facility] Comment on above: Result Comment: PERF ORMED BY: [place] [address] PATHOLOGIST BOX CAR CHECKER TAMERA DAO M.D. Performed By: #### E SR, CBC, HEPATIC, CREAT #### [facility] [address] [place] [address] Creatinine [Mass/volume] in Serum or PlasmaOrdered By: Kyle Calderon on 01-05-2023 Creatinine [Mass/Vol] 0.85 mg/dL 0.60-1.20 [facility] Diff and CBCon 01-05-2023 Anisocytosis Ql (Bld) Slight Normal [facility] Comment on above: Performed By: #### E SR, CBC, HEPATIC, CREAT #### [facility] [address] [place] [address] [place] Band form neutrophils/100 WBC (Bld) 1 % Normal 0-5 [facility] Comment on above: Performed By: #### E SR, CBC, HEPATIC, CREAT #### [facility] [address] [place] [address] [place] Basophils/100 WBC (Bld) 0 % Normal 0-2 [facility] Comment on above: Performed By: #### E SR, CBC, HEPATIC, CREAT #### [address] Eosinophils/100 WBC (Bld) 4 % High 1-3 [facility] Comment on above: Performed By: #### E SR, CBC, HEPATIC, CREAT #### [address] Erythrocyte distribution width (RBC) [Ratio] 15.0 % Normal 11.9-15.3 [facility] Comment on above: Performed By: #### E SR, CBC, HEPATIC, CREAT #### [address] Hematocrit (Bld) [Volume fraction] 35.4 % Normal 34.0-46.4 [facility] Comment on above: Performed By: #### E SR, CBC, HEPATIC, CREAT #### [address] Hemoglobin (Bld) [Mass/Vol] 12.1 g/dL Normal 11.8-15.4 [facility] Comment on above: Performed By: #### E SR, CBC, HEPATIC, CREAT #### [address] Lymphocytes/100 WBC (Bld) 13 % Low 18-42 [facility] Comment on above: Performed By: #### E SR, CBC, HEPATIC, CREAT #### [address] MCH (RBC) [Entitic mass] 31.7 pg Normal 24.7-34.3 [facility] Comment on above: Performed By: #### E SR, CBC, HEPATIC, CREAT #### [address] MCV (RBC) [Entitic vol] 92.6 fL Normal 80-100 [facility] Comment on above: Performed By: #### E SR, CBC, HEPATIC, CREAT #### [address] Mean Corpuscular HGB Conc 34.2 g/dL Normal 32.0-35.0 [facility] Comment on above: Performed By: #### E SR, CBC, HEPATIC, CREAT #### [facility] [address] [place] [address] Metamyelocytes 1 % High 0-0 [facility] Comment on above: Performed By: #### E SR, CBC, HEPATIC, CREAT #### [facility] [address] [place] [address] Microcytosis Slight Normal [facility] Comment on above: Performed By: #### E SR, CBC, HEPATIC, CREAT #### [facility] [address] [place] [address] Monocytes/100 WBC (Bld) 6 % Normal 2-11 [facility] Comment on above: Performed By: #### E SR, CBC, HEPATIC, CREAT #### [facility] [address] [place] [address] Myelocytes 1 % High 0-0 [facility] Comment on above: Performed By: #### E SR, CBC, HEPATIC, CREAT #### [facility] [address] [place] [address] Platelet Estimate Normal Normal Normal [facility] Comment on above: Performed By: #### E SR, CBC, HEPATIC, CREAT #### [facility] [address] [place] [address] Platelet mean volume (Bld) [Entitic vol] 8.3 fL Normal 6.3-10.7 [facility] Comment on above: Performed By: #### E SR, CBC, HEPATIC, CREAT #### [facility] [address] [place] [address] Platelet Morphology Normal Normal Normal [facility] Comment on above: Performed By: #### E SR, CBC, HEPATIC, CREAT #### [facility] [address] [place] [address] Platelets (Bld) [#/Vol] 204 10*3/uL Normal 150-450 [facility] Comment on above: Performed By: #### E SR, CBC, HEPATIC, CREAT #### [facility] [address] Polychromasia Slight Normal [facility] Comment on above: Performed By: #### E SR, CBC, HEPATIC, CREAT #### [facility] [address] RBC (Bld) [#/Vol] 3.82 10*6/uL Normal 3.60-5.00 [facility] Comment on above: Performed By: #### E SR, CBC, HEPATIC, CREAT #### [facility] [address] [place] [address] Segmented neutrophils/100 WBC (Bld) 74 % High 50-70 [facility] Comment on above: Performed By: #### E SR, CBC, HEPATIC, CREAT #### [facility] [address] [place] [address] WBC (Bld) [#/Vol] 10.8 10*3/uL Normal 3.8-11.6 [facility] Comment on above: Performed By: #### E SR, CBC, HEPATIC, CREAT #### [facility] [address] [place] [address] Eosinophils Auto (Bld) [#/Vo l]Ordered By: Kyle Calderon on 01-05-2023 Eosinophils (Bld) [#/Vol] N/A [facility] Eosinophils/100 WBC Auto (Bl d)Ordered By: Kyle Calderon on 01-05-2023 Eosinophils/100 WBC (Bld) N/A [facility] Eosinophils/100 WBC Manual c nt (Bld)Ordered By: Kyle Calderon on 01-05-2023 Eosinophils/100 WBC (Bld) 4 % 1-3 [facility] Erythrocyte Sedimentation Ra moon 01-05-2023 ESR (Bld) [Velocity] 17 mm/h Normal 0-29 [facility] Comment on above: Result Comment: PERF ORMED BY: [place] [address] PATHOLOGIST BOX CAR CHECKER TAMERA DAO M.D. Performed By: #### E SR, CBC, HEPATIC, CREAT #### [facility] [address] [place] [address] [place] Erythrocyte distribution wid th Auto (RBC) [Ratio]Ordered By: Kyle Calderon on 01-05-2023 Erythrocyte distribution width (RBC) [Ratio] 15.0 % 11.9-15.3 [facility] Erythrocyte sedimentation ra te by Photometric methodOrdered By: Kyle Calderon on 01-05-2023 ESR Photometric method (Bld) [Velocity] 17 mm/hr 0-29 [facility] Globulin Calc (S) [Mass/Vol] Ordered By: Kyle Calderon on 01-05-2023 Globulin (S) [Mass/Vol] 2.2 g/dL [facility] Hematocrit Auto (Bld) [Volum e fraction]Ordered By: Kyle Calderon on 01-05-2023 Hematocrit (Bld) [Volume fraction] 35.4 % 34.0-46.4 [facility] Hemoglobin [Mass/volume] in BloodOrdered By: Kyle Calderon on 01-05-2023 Hemoglobin (Bld) [Mass/Vol] 12.1 g/dL 11.8-15.4 [facility] Hepatic Panelon 01-05-2023 Albumin [Mass/Vol] 4.4 g/dL Normal 3.5-5.7 [facility] Comment on above: Performed By: #### C REAT, HEPATIC, DIFF CBC, ESR #### [facility] [address] [place] [address] [place] Albumin/Globulin [Mass ratio] 2.0 {ratio} Normal [facility] Comment on above: Performed By: #### C REAT, HEPATIC, DIFF CBC, ESR #### [facility] [address] [place] [id number] [place] ALP [Catalytic activity/Vol] 93 U/L Normal 34-104 [facility] Comment on above: Performed By: #### C REAT, HEPATIC, DIFF CBC, ESR #### [facility] [address] [place] [id number] [facility] ALT [Catalytic activity/Vol] 41 U/L Normal 7-52 [facility] Comment on above: Performed By: #### C REAT, HEPATIC, DIFF CBC, ESR #### [facility] [address] AST [Catalytic activity/Vol] 19 U/L Normal 13-39 [facility] Comment on above: Performed By: #### C REAT, HEPATIC, DIFF CBC, ESR #### [facility] [address] Bilirubin [Mass/Vol] 0.6 mg/dL Normal 0.3-1.0 [facility] Comment on above: Performed By: #### C REAT, HEPATIC, DIFF CBC, ESR #### [facility] [address] Bilirubin,Indirect 0.5 mg/dL Normal [facility] Comment on above: Performed By: #### C REAT, HEPATIC, DIFF CBC, ESR #### [facility] [address] Bilirubin.indirect [Mass/Vol] 0.10 mg/dL Normal 0.03-0.18 [facility] Comment on above: Performed By: #### C REAT, HEPATIC, DIFF CBC, ESR #### [facility] [address] Globulin (S) [Mass/Vol] 2.2 g/dL Normal [facility] Comment on above: Performed By: #### C REAT, HEPATIC, DIFF CBC, ESR #### [facility] [address] Protein [Mass/Vol] 6.6 g/dL Normal 6.4-8.9 [facility] Comment on above: Performed By: #### C REAT, HEPATIC, DIFF CBC, ESR #### [facility] [address] Leukocytes [#/volume] correc edd for nucleated erythrocytes in Blood by Automated counOrdered By: Kyle Calderon on 01-05-2023 WBC corrected for nucl RBC Auto (Bld) [#/Vol] 10.8 10*3/uL 3.8-11.6 [facility] Lymphocytes Auto (Bld) [#/Vo l]Ordered By: Kyle Calderon on 01-05-2023 Lymphocytes (Bld) [#/Vol] N/A [facility] Lymphocytes/100 WBC Auto (Bl d)Ordered By: Kyle Calderon on 01-05-2023 Lymphocytes/100 WBC (Bld) N/A [facility] Lymphocytes/100 WBC Manual c nt (Bld)Ordered By: Kyle Caledron on 01-05-2023 Lymphocytes/100 WBC (Bld) 13 % 18-42 [facility] MCH Auto (RBC) [Entitic mass ]Ordered By: Kyle Calderon on 01-05-2023 MCH (RBC) [Entitic mass] 31.7 pg 24.7-34.3 [facility] MCHC Auto (RBC) [Mass/Vol]Or dered By: Kyle Calderon on 01-05-2023 MCHC (RBC) [Mass/Vol] 34.2 g/dL 32.0-35.0 [facility] MCV Auto (RBC) [Entitic vol] Ordered By: Kyle Calderon on 01-05-2023 MCV (RBC) [Entitic vol] 92.6 fL 80-100 [facility] Metamyelocytes/100 WBC Manua l cnt (Bld)Ordered By: Kyle Calderon on 01-05-2023 Metamyelocytes/100 WBC (Bld) 1 % 0-0 [facility] Microcytes LM Ql (Bld)Ordere d By: Kyle Calderon on 01-05-2023 Microcytes Ql (Bld) Slight [facility] Monocytes Auto (Bld) [#/Vol] Ordered By: Kyle Calderon on 01-05-2023 Monocytes (Bld) [#/Vol] N/A [facility] Monocytes/100 WBC Auto (Bld) Ordered By: Kyle Calderon on 01-05-2023 Monocytes/100 WBC (Bld) N/A [facility] Monocytes/100 WBC Manual cnt (Bld)Ordered By: Kyle Calderon on 01-05-2023 Monocytes/100 WBC (Bld) 6 % 2-11 [facility] Myelocytes/100 WBC Manual cn t (Bld)Ordered By: Kyle Calderon on 01-05-2023 Myelocytes/100 WBC (Bld) 1 % 0-0 [facility] Neutrophils Auto (Bld) [#/Vo l]Ordered By: Kyle Calderon on 01-05-2023 Neutrophils (Bld) [#/Vol] N/A [facility] Neutrophils/100 WBC Auto (Bl d)Ordered By: Kyle Calderon on 01-05-2023 Neutrophils/100 WBC (Bld) N/A [facility] No Panel InformationOrdered By: Kyle Calderon on 01-05-2023 Estimated GFR (CKD-EPI) > 60.0 mL/Min [facility] Creatinine Clearance (Chem N/A [facility] Nucleated erythrocytes [Pres ence] in Blood by Automated countOrdered By: Kyle Calderon on 01-05-2023 Nucleated RBC Auto Ql (Bld) N/A [facility] Platelet adequacy [Presence] in Blood by Light microscopyOrdered By: Kyle Claderon on 01-05-2023 Platelets LM Ql (Bld) Normal Normal [facility] Platelet mean volume Auto (B ld) [Entitic vol]Ordered By: Kyle Calderon on 01-05-2023 Platelet mean volume (Bld) [Entitic vol] 8.3 fL 6.3-10.7 [facility] Platelet morphology finding [Identifier] in BloodOrdered By: Kyle Calderon on 01-05-2023 Platelet morphology finding Nom (Bld) Normal Normal [facility] Platelets Auto (Bld) [#/Vol] Ordered By: Kyle Calderon on 01-05-2023 Platelets (Bld) [#/Vol] 204 10*3/uL 150-450 [facility] Polychromasia [Presence] in Blood by Light microscopyOrdered By: Kyle Calderon on 01-05-2023 Polychromasia LM Ql (Bld) Slight [facility] Protein [Mass/volume] in Ser um or PlasmaOrdered By: Kyle Calderon on 01-05-2023 Protein [Mass/Vol] 6.6 g/dL 6.4-8.9 [facility] RBC Auto (Bld) [#/Vol]Ordere d By: Kyle Calderon on 01-05-2023 RBC (Bld) [#/Vol] 3.82 10*6/uL 3.60-5.00 [facility] RBC morphologyOrdered By: Jazmin Calderon on 01-05-2023 RBC morphology finding Nom (Bld) N/A [facility] Segmented neutrophils/100 WB C Manual cnt (Bld)Ordered By: Kyle Calderon on 01-05-2023 Segmented neutrophils/100 WBC (Bld) 74 % 50-70 [facility] Serum or plasma albumin/glob ulin mass ratioOrdered By: Kyle Calderon on 01-05-2023 Albumin/Globulin [Mass ratio] 2.0 {ratio} [facility] Serum or plasma non-glucuron idated bilirubin measurement (mass/volume)Ordered By: Kyle Calderon on 01-05-2023 Bilirubin.indirect [Mass/Vol] 0.5 mg/dL [facility] WBC Auto (Bld) [#/Vol]Ordere d By: Kyle Calderon on 01-05-2023 WBC (Bld) [#/Vol] 10.8 10*3/uL 3.8-11.6 [facility] CT LSPINE WO CONon 3 CT [...] by: UNA ELMORE Date: 2022-11-13 09:[address] [facility] [address] PELVIS WO CONon 3 CT [...] by: UNA ELMORE Date: 2022-11-13 09:29 Normal [facility] Alanine aminotransferase [En zymatic activity/volume] in Serum or PlasmaOrdered By: Kyle Calderon on 11-03-2022 ALT [Catalytic activity/Vol] 41 U/L 7-52 [facility] Albumin [Mass/volume] in Ser um or Plasma by Bromocresol green (BCG) dye binding methoOrdered By: Kyle Calderon on 11-03-2022 Albumin BCG dye [Mass/Vol] 4.0 g/dL 3.5-5.7 [facility] Alkaline phosphatase [Enzyma tic activity/volume] in Serum or PlasmaOrdered By: Kyle Calderon on 11-03-2022 ALP [Catalytic activity/Vol] 95 U/L 34-104 [facility] Aspartate aminotransferase [ Enzymatic activity/volume] in Serum or PlasmaOrdered By: Kyle Calderon on 11-03-2022 AST [Catalytic activity/Vol] 17 U/L 13-39 [facility] Basophils Auto (Bld) [#/Vol] Ordered By: Kyle Calderon on 11-03-2022 Basophils (Bld) [#/Vol] 0.1 10*3/uL 0.0-0.2 [facility] Basophils/100 WBC Auto (Bld) Ordered By: Kyle Calderon on 11-03-2022 Basophils/100 WBC (Bld) 0.9 % . [facility] Bilirubin.direct [Mass/volum e] in Serum or PlasmaOrdered By: Kyle Calderon on 11-03-2022 Bilirubin.direct [Mass/Vol] 0.10 mg/dL 0.03-0.18 [facility] Bilirubin.total [Mass/volume ] in Serum or PlasmaOrdered By: Kyle Calderon on 11-03-2022 Bilirubin [Mass/Vol] 0.7 mg/dL 0.3-1.0 [facility] Complete Blood Count Auto Di ffon 11-03-2022 Basophils (Bld) [#/Vol] 0.1 10*3/uL Normal 0.0-0.2 [facility] Comment on above: Performed By: #### H EPATIC, CREAT, CBC, ESR #### [facility] [address] [place] [id number] [place] Basophils/100 WBC (Bld) 0.9 % Normal . [facility] Comment on above: Performed By: #### H EPATIC, CREAT, CBC, ESR #### [facility] [address] [place] [address] [place] Eosinophils (Bld) [#/Vol] 0.2 10*3/uL Normal 0.0-0.45 [facility] Comment on above: Performed By: #### H EPATIC, CREAT, CBC, ESR #### [facility] [address] [place] [id number] [place] Eosinophils/100 WBC (Bld) 1.4 % Normal . [facility] Comment on above: Performed By: #### H EPATIC, CREAT, CBC, ESR #### [address] Erythrocyte distribution width (RBC) [Ratio] 14.6 % Normal 11.9-15.3 [facility] Comment on above: Performed By: #### H EPATIC, CREAT, CBC, ESR #### [address] Hematocrit (Bld) [Volume fraction] 37.2 % Normal 34.0-46.4 [facility] Comment on above: Performed By: #### H EPATIC, CREAT, CBC, ESR #### [address] Hemoglobin (Bld) [Mass/Vol] 12.4 g/dL Normal 11.8-15.4 [facility] Comment on above: Performed By: #### H EPATIC, CREAT, CBC, ESR #### [address] Lymphocytes (Bld) [#/Vol] 1.5 10*3/uL Normal 1.00-4.8 [facility] Comment on above: Performed By: #### H EPATIC, CREAT, CBC, ESR #### [address] Lymphocytes/100 WBC (Bld) 12.4 % Normal . [facility] Comment on above: Performed By: #### H EPATIC, CREAT, CBC, ESR #### [address] MCH (RBC) [Entitic mass] 31.0 pg Normal 24.7-34.3 [facility] Comment on above: Performed By: #### H EPATIC, CREAT, CBC, ESR #### [address] MCV (RBC) [Entitic vol] 93.2 fL Normal 80-100 [facility] Comment on above: Performed By: #### H EPATIC, CREAT, CBC, ESR #### [address] Mean Corpuscular HGB Conc 33.3 g/dL Normal 32.0-35.0 [facility] Comment on above: Performed By: #### H EPATIC, CREAT, CBC, ESR #### [address] Monocytes (Bld) [#/Vol] 0.9 10*3/uL High 0.0-0.8 [facility] Comment on above: Performed By: #### H EPATIC, CREAT, CBC, ESR #### [address] Monocytes/100 WBC (Bld) 7.2 % Normal . [facility] Comment on above: Performed By: #### H EPATIC, CREAT, CBC, ESR #### [address] Neutrophils (Bld) [#/Vol] 9.4 10*3/uL High 1.8-7.7 [facility] Comment on above: Performed By: #### H EPATIC, CREAT, CBC, ESR #### [address] Neutrophils/100 WBC (Bld) 78.1 % Normal . [facility] Comment on above: Performed By: #### H EPATIC, CREAT, CBC, ESR #### [address] NRBC% 0.0 /100{WBC} Normal 0-0.5 [facility] Comment on above: Performed By: #### H EPATIC, CREAT, CBC, ESR #### [address] Platelet mean volume (Bld) [Entitic vol] 8.4 fL Normal 6.3-10.7 [facility] Comment on above: Performed By: #### H EPATIC, CREAT, CBC, ESR #### [place] [address] [place] Platelets (Bld) [#/Vol] 220 10*3/uL Normal 150-450 [facility] Comment on above: Performed By: #### H EPATIC, CREAT, CBC, ESR #### [facility] [address] [place] [address] RBC (Bld) [#/Vol] 3.99 10*6/uL Normal 3.60-5.00 [facility] Comment on above: Performed By: #### H EPATIC, CREAT, CBC, ESR #### [facility] [address] [place] [address] WBC (Bld) [#/Vol] 12.0 10*3/uL High 3.8-11.6 [facility] Comment on above: Performed By: #### H EPATIC, CREAT, CBC, ESR #### [facility] [address] [place] [address] Creatinineon 11-03-2022 Creatinine [Mass/Vol] 0.80 mg/dL Normal 0.60-1.20 [facility] Comment on above: Performed By: #### H EPATIC, CREAT, CBC, ESR #### [address] GFR/1.73 sq M.predicted MDRD (S/P/Bld) [Vol rate/Area] mL/min/{1.73_m2} Normal [facility] Comment on above: Result Comment: PERF ORMED BY: [place] [address] PATHOLOGIST [employer]OX [employer] CHECKER TAMERA DAO M.D. Performed By: #### H EPATIC, CREAT, CBC, ESR #### [facility] [address] [place] [address] Creatinine [Mass/volume] in Serum or PlasmaOrdered By: Kyle Calderon on 11-03-2022 Creatinine [Mass/Vol] 0.80 mg/dL 0.60-1.20 [facility] Eosinophils Auto (Bld) [#/Vo l]Ordered By: Kyle Calderon on 11-03-2022 Eosinophils (Bld) [#/Vol] 0.2 10*3/uL 0.0-0.45 [facility] Eosinophils/100 WBC Auto (Bl d)Ordered By: Kyle Calderon on 11-03-2022 Eosinophils/100 WBC (Bld) 1.4 % . [facility] Erythrocyte Sedimentation Ra moon 11-03-2022 ESR (Bld) [Velocity] 12 mm/h Normal 0-29 [facility] Comment on above: Result Comment: PERF ORMED BY: [facility] [address] [facility] [place] [address] PATHOLOGIST [employer] CHECKER TAMERA DAO M.D. Performed By: #### H EPATIC, CREAT, CBC, ESR #### [facility] [address] Erythrocyte distribution wid th Auto (RBC) [Ratio]Ordered By: Kyle Calderon on 11-03-2022 Erythrocyte distribution width (RBC) [Ratio] 14.6 % 11.9-15.3 [facility] Erythrocyte sedimentation ra te by Photometric methodOrdered By: Kyle Calderon on 11-03-2022 ESR Photometric method (Bld) [Velocity] 12 mm/hr 0-29 [facility] Globulin Calc (S) [Mass/Vol] Ordered By: Kyle Calderon on 11-03-2022 Globulin (S) [Mass/Vol] 2.2 g/dL [facility] Hematocrit Auto (Bld) [Volum e fraction]Ordered By: Kyle Calderon on 11-03-2022 Hematocrit (Bld) [Volume fraction] 37.2 % 34.0-46.4 [facility] Hemoglobin [Mass/volume] in BloodOrdered By: Kyle Calderon on 11-03-2022 Hemoglobin (Bld) [Mass/Vol] 12.4 g/dL 11.8-15.4 [facility] Hepatic Panelon 11-03-2022 Albumin [Mass/Vol] 4.0 g/dL Normal 3.5-5.7 [facility] Comment on above: Performed By: #### H EPATIC, CREAT, CBC, ESR #### [facility] [address] Albumin/Globulin [Mass ratio] 1.8 {ratio} Normal [facility] Comment on above: Performed By: #### H EPATIC, CREAT, CBC, ESR #### [facility] [address] ALP [Catalytic activity/Vol] 95 U/L Normal 34-104 [facility] Comment on above: Performed By: #### H EPATIC, CREAT, CBC, ESR #### [facility] [address] ALT [Catalytic activity/Vol] 41 U/L Normal 7-52 [facility] Comment on above: Performed By: #### H EPATIC, CREAT, CBC, ESR #### [address] AST [Catalytic activity/Vol] 17 U/L Normal 13-39 [facility] Comment on above: Performed By: #### H EPATIC, CREAT, CBC, ESR #### [facility] [address] [place] [address] Bilirubin [Mass/Vol] 0.7 mg/dL Normal 0.3-1.0 [facility] Comment on above: Performed By: #### H EPATIC, CREAT, CBC, ESR #### [address] Bilirubin,Indirect 0.6 mg/dL Normal [facility] Comment on above: Performed By: #### H EPATIC, CREAT, CBC, ESR #### [facility] [address] [place] [address] Bilirubin.indirect [Mass/Vol] 0.10 mg/dL Normal 0.03-0.18 [facility] Comment on above: Performed By: #### H EPATIC, CREAT, CBC, ESR #### [facility] [address] [place] [address] Globulin (S) [Mass/Vol] 2.2 g/dL Normal [facility] Comment on above: Performed By: #### H EPATIC, CREAT, CBC, ESR #### [place] [address] [place] Protein [Mass/Vol] 6.2 g/dL Low 6.4-8.9 [facility] Comment on above: Performed By: #### H EPATIC, CREAT, CBC, ESR #### [facility] [address] Leukocytes [#/volume] correc edd for nucleated erythrocytes in Blood by Automated counOrdered By: Kyle Calderon on 11-03-2022 WBC corrected for nucl RBC Auto (Bld) [#/Vol] 12.0 10*3/uL 3.8-11.6 [facility] Lymphocytes Auto (Bld) [#/Vo l]Ordered By: Kyle Calderon on 11-03-2022 Lymphocytes (Bld) [#/Vol] 1.5 10*3/uL 1.00-4.8 [facility] Lymphocytes/100 WBC Auto (Bl d)Ordered By: Kyle Calderon on 11-03-2022 Lymphocytes/100 WBC (Bld) 12.4 % . [facility] MCH Auto (RBC) [Entitic mass ]Ordered By: Kyle Calderon on 11-03-2022 MCH (RBC) [Entitic mass] 31.0 pg 24.7-34.3 [facility] MCHC Auto (RBC) [Mass/Vol]Or dered By: Kyle Calderon on 11-03-2022 MCHC (RBC) [Mass/Vol] 33.3 g/dL 32.0-35.0 [facility] MCV Auto (RBC) [Entitic vol] Ordered By: Kyle Calderon on 11-03-2022 MCV (RBC) [Entitic vol] 93.2 fL 80-100 [facility] Monocytes Auto (Bld) [#/Vol] Ordered By: Kyle Calderon on 11-03-2022 Monocytes (Bld) [#/Vol] 0.9 10*3/uL 0.0-0.8 [facility] Monocytes/100 WBC Auto (Bld) Ordered By: Kyle Calderon on 11-03-2022 Monocytes/100 WBC (Bld) 7.2 % . [facility] Neutrophils Auto (Bld) [#/Vo l]Ordered By: Kyle Calderon on 11-03-2022 Neutrophils (Bld) [#/Vol] 9.4 10*3/uL 1.8-7.7 [facility] Neutrophils/100 WBC Auto (Bl d)Ordered By: Kyle Calderon on 11-03-2022 Neutrophils/100 WBC (Bld) 78.1 % . [facility] No Panel InformationOrdered By: Kyle Calderon on 11-03-2022 Estimated GFR (CKD-EPI) > 60.0 mL/Min [facility] Creatinine Clearance (Chem N/A [facility] Nucleated erythrocytes [Pres ence] in Blood by Automated countOrdered By: Kyle Calderon on 11-03-2022 Nucleated RBC Auto Ql (Bld) 0.0 /100{WBC} 0-0.5 [facility] Platelet mean volume Auto (B ld) [Entitic vol]Ordered By: Kyle Calderon on 11-03-2022 Platelet mean volume (Bld) [Entitic vol] 8.4 fL 6.3-10.7 [facility] Platelets Auto (Bld) [#/Vol] Ordered By: Kyle Calderon on 11-03-2022 Platelets (Bld) [#/Vol] 220 10*3/uL 150-450 [facility] Protein [Mass/volume] in Ser um or PlasmaOrdered By: Kyle Calderon on 11-03-2022 Protein [Mass/Vol] 6.2 g/dL 6.4-8.9 [facility] RBC Auto (Bld) [#/Vol]Ordere d By: Kyle Calderon on 11-03-2022 RBC (Bld) [#/Vol] 3.99 10*6/uL 3.60-5.00 [facility] Serum or plasma albumin/glob ulin mass ratioOrdered By: Kyle Calderon on 11-03-2022 Albumin/Globulin [Mass ratio] 1.8 {ratio} [facility] Serum or plasma non-glucuron idated bilirubin measurement (mass/volume)Ordered By: Kyle Calderon on 11-03-2022 Bilirubin.indirect [Mass/Vol] 0.6 mg/dL [facility] WBC Auto (Bld) [#/Vol]Ordere d By: Kyle Calderon on 11-03-2022 WBC (Bld) [#/Vol] 12.0 10*3/uL 3.8-11.6 [facility] XR pelvis 1-2Von 09-29-2022 XR pelvis 1-2V [facility] [employer] Other XR pelvis 1-2V [facility] [employer] Other XR pelvis 1-2V [address] [place] [address] [employer] Other XR pelvis 1-2[place] [address] No rt [employer] Other XR pelvis 1-2V XRay Report [employer] Other XR pelvis 1-2V Signed [employer] Other XR pelvis 1-2V Patient: Laly Phillips MR#: [id number] [employer] Other XR pelvis 1-2V 03 [employer] Other XR pelvis 1-2V : 1965 Acct:[id number] [employer] Other XR pelvis 1-2V Age/Sex: 57 / F ADM Date: 09/29/22 [employer] Other XR pelvis 1-2V Loc: [facility]XD Room: Type : [facility] [employer] Other XR pelvis 1-2V Attending Dr: Kyle Call II, MD [employer] Other XR pelvis 1-2V Copies to: Kyle Call MD [employer] Other XR pelvis 1-2V Ordering Provider: Kyle Call MD [employer] Other XR pelvis 1-2V Date of Service: 09/29/22 [employer] Other XR pelvis 1-2V XR/XR pelvis 1-2V: S32.591D [employer] Other XR pelvis 1-2V Pelvis 3 views. [employer] Other XR pelvis 1-2V CLINICAL HISTORY: Right superior/inferior pubic rami fractures [employer] Other XR pelvis 1-2V COMPARISON: Pelvis study 07/07/2022 [employer] Other XR pelvis 1-2V Examination is suboptimal due to body habitus. [employer] Other XR pelvis 1-2V The patient's right-sided pubic rami fractures are less conspicuous when compared to the prior study [employer] Other XR pelvis 1-2V with questionable calculus formation along the inferior pubic ramus fracture suggestive of healing [employer] Other XR pelvis 1-2V response. No change in alignment is seen. No new additional fractures are noted. Mild degenerative [employer] Other XR pelvis 1-2V changes are noted involving the hips and SI joints. [employer] Other XR pelvis 1-2V XR/XR pelvis 1-2V [employer] Other XR pelvis 1-2V IMPRESSION: [employer] [facility] [employer] Other XR pelvis 1-2V HEALING PUBIC RAMI FRACTURES. [employer] Other XR pelvis 1-2V Impression dictated by: Lorenzo Coker Jr.OReilly09/29/2022 9:46 AM [employer] Other XR pelvis 1-2V Dictation Location: [place] [address] [employer] Other XR pelvis 1-2V Transcribed By: VASILE 09/29/22 0946 [employer] Other XR pelvis 1-2V Dictated By: Kavon Choi Jr, DO 09/29/22 0944 [employer] Other XR pelvis 1-2V Signed By: [employer] Other XR pelvis 1-2V 09/29/22 0946 [employer] Other MR hip RT wo conon 3 MR hip RT wo con [facility] [employer] Other MR hip RT wo con [facility] [place] No rt [employer] Other MR hip RT wo con [address] [facility] [address] [facility] [employer] Other MR [place] [address] [employer] Other MR hip RT wo con MRI Report [employer] Other MR hip RT wo con Signed [employer] Other MR hip RT wo con Patient: Laly Phillips MR#: [id number] [employer] Other MR hip RT wo con 03 [employer] Other MR hip RT wo con : 1965 Acct:[id number] [employer] Other MR hip RT wo con Age/Sex: 57 / F ADM Date: 07/27/22 [employer] Other MR hip RT wo con Loc: [facility]R Room: Type : [facility] [employer] Other MR hip RT wo con Attending Dr: Kyle Call II, MD [employer] Other MR hip RT wo con Copies to: Kyle Call MD [employer] Other MR hip RT wo con Ordering Provider: Kyle Call MD [employer] Other MR hip RT wo con Date of Service: 07/27/22 [employer] Other MR hip RT wo con MR/MR hip RT wo con: S32.591A CLOSED FX RAMUS OF RIGHT PUBUS [employer] Other MR hip RT wo con MRI of the right hip without IV contrast. [employer] Other MR hip RT wo con Reason for exam: History of right inferior pubic ramus fracture. Right hip pain. [employer] Other MR hip RT wo con COMPARISON: Pelvis 07/07/2022 [employer] Other MR hip RT wo con FINDINGS: Minimal joint effusion is seen. There appears to be a fractures involving the right [employer] Other MR hip RT wo con superior and inferio r pubic ramus with associated bone marrow edema. No significant displacement of [employer] Other MR hip RT wo con these fractures are seen. Labrum appears grossly intact. No hip fracture is seen. Muscle groups [employer] Other MR hip RT wo con appear grossly unremarkable. Visualized intrapelvic contents demonstrate no acute findings. [employer] Other MR hip RT wo con MR/MR hip RT wo con [employer] Other MR hip RT wo con IMPRESSION: Nondisplaced fractures involving the right superior and inferior pubic ramus with [employer] Other MR hip RT wo con associated bone marrow edema. [employer] Other MR hip RT wo con Impression dictated by: Kavon Choi Jr., D.O.07/27/2022 11:43 AM [employer] Other MR hip RT wo con Dictation Location: [place] [address] [employer] Other MR hip RT wo con Transcribed By: VASILE 07/27/22 1143 [employer] Other MR hip RT wo con Dictated By: Kavon Choi Jr, DO 07/27/22 1140 [employer] Other MR hip RT wo con Signed By: [place] [employer] [facility] [employer] Other MR hip RT wo con 07/27/22 1143 [facility] Other XR pelvis 1-2Von 07-07-2022 XR pelvis 1-2V [facility] [employer] Other XR pelvis 1-2V [facility] [place] [facility] [employer] Other XR pelvis 1-2V [address] [place] [address] [employer] Other XR pelvis 1-2[place] [address] No rt [employer] Other XR pelvis 1-2V XRay Report [employer] Other XR pelvis 1-2V Signed [employer] Other XR pelvis 1-2V Patient: Laly Phillips MR#: [id number] [employer] Other XR pelvis 1-2V 03 [employer] Other XR pelvis 1-2V : 1965 Acct:[id number] [employer] Other XR pelvis 1-2V Age/Sex: 57 / F ADM Date: 07/07/22 [employer] Other XR pelvis 1-2V Loc: [facility]XD Room: Type : [facility] [employer] Other XR pelvis 1-2V Attending Dr: Kyle Call II, MD [employer] Other XR pelvis 1-2V Copies to: Kyle Call MD [employer] Other XR pelvis 1-2V Ordering Provider: Kyle Call MD [employer] Other XR pelvis 1-2V Date of Service: 07/07/22 [employer] Other XR pelvis 1-2V XR/XR hip RT min 2V(w/wo pelvis)*: PAIN [employer] Other XR pelvis 1-2V ([id number]) XR/XR pelvis 1-2V: PAIN [employer] Other XR pelvis 1-2V 2 views right hip single view pelvisplain film [employer] Other XR pelvis 1-2V COMPARISON:None [employer] Other XR pelvis 1-2V HISTORY:Status post right pubic rami fracture. Right hip pain [employer] Other XR pelvis 1-2V The nondisplaced right inferior pubic ramus fracture redemonstrated. Bony alignment unchanged. No [employer] Other XR pelvis 1-2V hip fracture. Adequate hip joint space.No significant degeneration. Articular surfaces preserved. [employer] Other XR pelvis 1-2V XR/XR hip RT min 2V(w/wo pelvis)* [employer] Other XR pelvis 1-2V IMPRESSION:Unchanged right inferior pubic ramus fracture. No hip fracture. [employer] Other XR pelvis 1-2V 2 views of the pelvis [employer] Other XR pelvis 1-2V Nondisplaced right inferior pubic ramus fracture identified. No additional fractures seen. No [employer] Other XR pelvis 1-2V diastases of the SI joints. Hip joint space is adequate. No hip fracture. [employer] Other XR pelvis 1-2V IMPRESSION: Nondisplaced right inferior pubic ramus fracture. [employer] Other XR pelvis 1-2V Impression dictated by: Ceasar Angeles M.D.07/07/2022 5:19 PM [employer] Other XR pelvis 1-2V Dictation Location: [facility] [employer] Other XR pelvis 1-2V Transcribed By: PWS 07/07/22 1712 [employer] Other XR pelvis 1-2V Dictated By: Ceasar Angeles DO 07/07/22 1713 [employer] Other XR pelvis 1-2V Signed By: [employer] Other XR pelvis 1-2V 07/07/22 6267 [employer] Other [facility]17 SARS-CoV-2 (COVID-19) RNA NANCY+probe Ql (Unsp spec) Detected Critically abnormal NOT DETECTED [facility] Comment on above: Result Comment: This test is not yet approved or cleared by the [place] FDA. When there are no FDA-approved or cleared tests available, and other criteria are met, FDA can make tests available under an emergency access mechanism called an Emergency Use Authorization (EUA). The EUA for this test is supported by the [place] of Health and Human Service's (HHS's) declaration [...] used). Performed By: #### C VDTB #### [facility] [address] [place] [address] Dr. Heather Khan INFLUENZA A AND B AGon 06-30 INFLUANEGH SEE BELOW Normal [facility] Comment on above: Result Comment: Nega tive for Flu A protein angiten. Infection due to Flu A cannot be ruled out. Flu A angiten in the sample may be below the detection limit of the test. Performed By: #### I NFLUAB #### [facility] [address] [place] [address] Dr. Heather Khan [facility] SEE BELOW Normal [facility] Comment on above: Result Comment: Nega tive for Flu B protein antigen. Infection due to Flu B cannot be ruled out. Flu B antigen in the sample may be below the detection limit of the test. Performed By: #### I NFLUAB #### [facility] [address] [place] [address] [address] Heather Khan INFLUENZA A AG Negative Normal NEGATIVE SEE COMMENT [facility] Comment on above: Performed By: #### I NFLUAB #### [facility] [address] [place] [address] Dr. Heather Khan INFLUENZA B AG Negative Normal NEGATIVE SEE COMMENT [facility] Comment on above: Performed By: #### I NFLUAB #### [facility] [address] [place] [address] Dr. Heather Khan INTERNAL CONTROLS Within Normal Limits Normal Wi thin Normal Limits [facility] Comment on above: Performed By: #### I NFLUAB #### [facility] [address] [place] [address] Dr. Heather Khan CULTURE WOUNDon 05-22-2022 CULTURE [...] F Oxacillin <=0.25 S F Normal [facility] Comment on above: Performed By: #### W OUNDCX #### [facility] [address] [place] [address] [address] Heather Khan Office Visit (Cardiology)on 03-18-2022 [...] Recorded: 18Mar2022 08:56AM Heart Rate78, R Radial Bdajzdla156, LUE, Sitting Mkuxzjnby94, LUE, Sitting Height5 ft 1 in Uhatty566 lb 4 oz BMI Mxjthtadnn69.69 kg/m2 BSA Calculated2.01 Tobacco Useb) No PHQ-2 [...] skin turgor (more content not included)... Normal [employer] Tobacco Screening.on Adult depression screening assessment No [facility] 250 DO Work Phone: Tobacco use status CPHS b) No [facility] 250 DO Work Phone: XR HIP [...] MIGUEL SERNA Date: 2022-03-01 09:02 Normal [facility] Body fluid albumin measureme nt (mass/volume)Ordered By: Kyle Calderon on 02-22-2022 Albumin (Body fld) [Mass/Vol] 3.6 g/dL 3.2-5.5 [facility] Direct bilirubin measurement Ordered By: Kyle Calderon on 02-22-2022 Bilirubin.direct [Mass/Vol] 0.1 mg/dL 0.0-0.4 [facility] Globulin Calc (S) [Mass/Vol] Ordered By: Kyle Calderon on 02-22-2022 Globulin (S) [Mass/Vol] 3.0 g/dL [facility] Protein [Mass/volume] in Ser um or PlasmaOrdered By: Kyle Calderon on 02-22-2022 Protein [Mass/Vol] 6.6 g/dL 6.1-7.9 [facility] Serum or plasma alanine gilbert otransferase measurement without P-5'-P (enzymatic activiOrdered By: Kyle Calderon on 02-22-2022 ALT No additional P-5'-P [Catalytic activity/Vol] 26 U/L 10-60 [facility] Serum or plasma albumin/glob ulin mass ratioOrdered By: Kyle Calderon on 02-22-2022 Albumin/Globulin [Mass ratio] 1.2 {ratio} [facility] Serum or plasma alkaline steven sphatase measurement (enzymatic activity/volume)Ordered By: Kyle Calderon on 02-22-2022 ALP [Catalytic activity/Vol] 74 U/L 32-92 [facility] Serum or plasma aspartate am inotransferase measurement (enzymatic activity/volume)Ordered By: Kyle Calderon on 02-22-2022 AST [Catalytic activity/Vol] 24 U/L 10-42 [facility] Serum or plasma non-glucuron idated bilirubin measurement (mass/volume)Ordered By: Kyle Calderon on 02-22-2022 Bilirubin.indirect [Mass/Vol] 0.1 mg/dL [facility] Serum or plasma total biliru bin measurement (mass/volume)Ordered By: Kyle Calderon on 02-22-2022 Bilirubin [Mass/Vol] 0.2 mg/dL 0.3-1.2 [facility] Basophils Auto (Bld) [#/Vol] Ordered By: Kyle Calderon on 02-10-2022 Basophils (Bld) [#/Vol] 0.1 10*3/uL 0.0-0.2 [facility] Basophils/100 WBC Auto (Bld) Ordered By: Kyle Calderon on 02-10-2022 Basophils/100 WBC (Bld) 0.6 % . [facility] Blood hemoglobin measurement (mass/volume)Ordered By: Kyle Calderon on 02-10-2022 Hemoglobin (Bld) [Mass/Vol] 11.9 g/dL 11.8-15.4 [facility] Blood leukocytes automated c ount (number/volume)Ordered By: Kyle Calderon on 02-10-2022 WBC (Bld) [#/Vol] 11.4 10*3/uL 4.5-11.0 [facility] Creatinine and Glomerular fi ltration rate.predicted panel (S/P/Bld)Ordered By: Kyle Calderon on 02-10-2022 Creatinine [Mass/Vol] 0.93 mg/dL 0.44-1.03 [facility] Eosinophils Auto (Bld) [#/Vo l]Ordered By: Kyle Calderon on 02-10-2022 Eosinophils (Bld) [#/Vol] 0.2 10*3/uL 0.0-0.45 [facility] Eosinophils/100 WBC Auto (Bl d)Ordered By: Kyle Calderon on 02-10-2022 Eosinophils/100 WBC (Bld) 1.8 % . [facility] Erythrocyte distribution wid th Auto (RBC) [Ratio]Ordered By: Kyle Calderon on 02-10-2022 Erythrocyte distribution width (RBC) [Ratio] 14.0 % 11.9-15.3 [facility] Erythrocyte sedimentation ra te by Photometric methodOrdered By: Kyle Calderon on 02-10-2022 ESR Photometric method (Bld) [Velocity] 30 mm/hr 0-29 [facility] Estimated glomerular filtrat ion rate (GFR) non- AmericanOrdered By: Kyle Calderon on 02-10-2022 GFR/1.73 sq M.predicted among non-blacks MDRD (S/P/Bld) [Vol rate/Area] > 60 mL/Min [facility] Hematocrit Auto (Bld) [Volum e fraction]Ordered By: Kyle Calderon on 02-10-2022 Hematocrit (Bld) [Volume fraction] 35.9 % 34.0-46.4 [facility] Hepatitis A virus Ab [Presen ce] in Serum by ImmunoassayOrdered By: Kyle Calderon on 02-10-2022 HAV Ab IA Ql (S) Negative Negative [facility] Comment on above: Performed at: [address] [id number] Support Worker: Thompson Osullivan PhD, Phone: [phone] Hepatitis B virus surface Ag [Presence] in Serum or Plasma by ImmunoassayOrdered By: Kyle Calderon on 02-10-2022 HBV surface Ag IA Ql Negative Negative [facility] - Hematology and Cell countsOrdered By: Kyle Calderon on 02-10-2022 Nucleated RBC/100 WBC (Bld) [Ratio] 0.1 % 0-0.5 [facility] Lymphocytes Auto (Bld) [#/Vo l]Ordered By: Kyle Calderon on 02-10-2022 Lymphocytes (Bld) [#/Vol] 1.5 10*3/uL 1.00-4.8 [facility] Lymphocytes/100 WBC Auto (Bl d)Ordered By: Kyle Calderon on 02-10-2022 Lymphocytes/100 WBC (Bld) 13.0 % . [facility] MCH Auto (RBC) [Entitic mass ]Ordered By: Kyle Calderon on 02-10-2022 MCH (RBC) [Entitic mass] 30.1 pg 24.7-34.3 [facility] MCHC Auto (RBC) [Mass/Vol]Or dered By: Kyle Calderon on 02-10-2022 MCHC (RBC) [Mass/Vol] 33.1 g/dL 32.0-35.0 [facility] MCV Auto (RBC) [Entitic vol] Ordered By: Kyle Calderon on 02-10-2022 MCV (RBC) [Entitic vol] 91.1 fL 80-100 [facility] Monocytes Auto (Bld) [#/Vol] Ordered By: Kyle Calderon on 02-10-2022 Monocytes (Bld) [#/Vol] 0.6 10*3/uL 0.0-0.8 [facility] Monocytes/100 WBC Auto (Bld) Ordered By: Kyle Calderon on 02-10-2022 Monocytes/100 WBC (Bld) 5.3 % . [facility] Neutrophils Auto (Bld) [#/Vo l]Ordered By: Kyle Calderon on 02-10-2022 Neutrophils (Bld) [#/Vol] 9.0 10*3/uL 1.8-7.7 [facility] Neutrophils/100 WBC Auto (Bl d)Ordered By: Kyle Calderon on 02-10-2022 Neutrophils/100 WBC (Bld) 79.3 % . [facility] No Panel InformationOrdered By: Kyle Calderon on 02-10-2022 Estimated GFR () > 60 mL/Min [facility] Comment on above: GFR estimated refere nce range: According to KDOQI guidelines, <60 ml/min/1.73m2 is sufficient to diagnose a patient with chronic kidney disease. Hepatitis B Core Total Antibody Negative Negative [facility] Hepatitis C Interpretation See comment . [facility] Comment on above: Negative Not infected with HCV, unless recent infection is suspected or other evidence exists to indicate HCV infection. Hepatitis C RNA Quantitative N/A [facility] Creatinine Clearance (Chem N/A [facility] Platelet mean volume Auto (B ld) [Entitic vol]Ordered By: Kyle Calderon on 02-10-2022 Platelet mean volume (Bld) [Entitic vol] 8.2 fL 6.3-10.7 [facility] Platelets Auto (Bld) [#/Vol] Ordered By: Kyle Calderon on 02-10-2022 Platelets (Bld) [#/Vol] 272 10*3/uL 150-450 [facility] RBC Auto (Bld) [#/Vol]Ordere d By: Kyle Calderon on 02-10-2022 RBC (Bld) [#/Vol] 3.95 10*6/uL 3.60-5.00 [facility] Serum hepatitis B virus surf [place] antibody detectionOrdered By: Kyle Calderon on 02-10-2022 HBV surface Ab Ql (S) Non-Reactive . F [facility] Comment on above: Non Reactive: Incons istent with immunity, less than 10 mIU/mL Reactive: Consistent with immunity, greater than 9.9 mIU/mL Serum or plasma hepatitis C virus antibody signal/cutoff ratio by immunoassay (relatiOrdered By: Kyle Calderon on 02-10-2022 HCV Ab Signal/Cutoff IA [Rel units/Vol] 0.1 s/co ratio 0.0-0.9 [facility] MUGA SCAN INJECTIONon [facility] MUGA SCAN INJECTION Patient Name: FELICITY PHILLIPS STUDY: MUGA Performing facility: [facility], [address] [place] [address], [address], [address] Provider: Amanuel Valladares RN, LOAN DOCUMENTATION SPECIALIST PCP: Dr. Lorenzo Garza Supervising provider: Yanet Sommer MD INDICATION: SOB; Non-ischemic cardiomyopathy HISTORY: Gender: F; Age: 55 y/o ; Height: 154.94 cm; Weight: 751.5396294 kg. HTN; SOB; Quit smoking unknown years ago. Cardiac catheterization on 2016. COMPARISON: Previous nuclear testing completed [id number] at [facility]. Previous echo testing completed [id number] at [facility]. ACCESSION NUMBER(S): [id number]; [id number] ORDERING CLINICIAN: AMANUEL VALLADARES TECHNIQUE: The patient received an IV injection of 3 ml of stannous pyrophosphate (PYP) using the in-vivo method of labeling red blood cells. After 15 minutes the patient received another IV injection of 27.0 mCi of Technetium 99m pertechnetate. Planar images of the left ventricle were obtained in the NAMIBIAN 45, Lt Lateral and anterior projections. FINDINGS: [...] Electronically signed by: YANET SOMMER MD Normal [facility] Echocardiogramon 09-04-2020 Echocardiography [facility] [address] [place] [address], [address], [place] [address] TRANSTHORACIC ECHOCARDIOGRAM REPORT Patient Name: FELICITY PHILLIPS Reading Physician: [id number] Jose Carlos Hernandez Study Date: 09/04/2020 Referring Physician: [id number] AMANUEL VALLADARES MRN/PID: [id number] PCP: Jose Antonio Garza Accession/Order#: [id number] Department Location: [facility] Date of : 1965 Fellow: Gender: F Nurse: Nyasia Cain RN Admit Date: Nuclear Medicine Technologist: Judy Rocha RDCS, RVT Height: 154.94 cm CC Report to: Weight: 104.78 kg Study Type: Echocardiogram BSA: 2.01 m2 Blood Pressure: 128 /68 mmHg Diagnosis/ICD: I42.8-Other cardiomyopathies; R06.02-Shortness of breath Indication: HTN, CHARBEL, Former Smoker, Morbid Obesity Procedure/CPT: Echo Complete w Full [id number] Study Detail: The following Echo studies were [...] mmHg PIEDV: 1.78 m/s PADP: 15.7 mmHg [id number] Jose Carlos Hernandez DO Electronically signed on 09/04/2020 at 4:00:50 PM Final Normal [facility] OBSOLETEon 08-02-2018 OBSOLETE Refill (ADELA) FELICITY PHILLIPS ([id number]) 1965 F Date Time Provider Department 08/02/18 CEASAR CUNHA During your visit today, we recorded the following information about you: Maye Diony 08/02/2018 9:23 AM Signed Pharmacy verified in Epic Patient has been identified by name and date of : Yes Prescription must be called to the pharmacy (non-escript). [facility] phone [phone]. Please call patient after medication has been [...] lb) Not applicable Please advise. Maye Amaral APRN.LOAN DOCUMENTATION SPECIALIST 08/03/2018 9:25 AM Signed We have no [...] copy of the labs. Thanks, Brandie Amaral APRN.LOAN DOCUMENTATION SPECIALIST Allergies As of Date: 08/02/2018 Noted Allergy [...] by BRANDIE AMARAL CNP on 08/03/18 Normal [facility] CNOVon 05-30-2018 CNOV Office Visit (CARDFT ) FELICITY PHILLIPS ([id number]) 1965 F Date Time Provider Department 05/30/18 9:30 AM CEASAR CUNHA During your visit today, we recorded the following information about you: Pulse Blood pressure Weight Height 82/minute 142/80 105.1 kg 1.524 m Ceasar Cunha MD 05/30/2018 9:42 AM [facility] [place] Nataly Rodriguez Department of Cardiovascular Medicine OUTPATIENT VISIT DATE 05/30/18 OUTPATIENT VISIT TYPE ESTABLISHED PRIMARY CARE PHYSICIAN: Jose Antonio Garza MD [address] [place] [phone] CHIEF COMPLAINT: Patient presents with: Follow Up [...] visit. Apparently she had a hospitalization at [facility] which led to [place] [facility] She had a cardiac catheterization performed [...] T-wave changes. The patient was sent to [facility] emergency room where she was evaluated and eventually transferred to [facility] where she underwent a cardiac catheterization [...] her echocardiogram noted above. Cardiac catheterization at [facility] [place] January 2017 revealed normal coronary arteries and a mild to moderate reduction in left ventricular ejection fraction at 40%. The LVEDP was elevated at 20-25 mmHg. A 2-D echocardiogram performed at [facility] in [place] 2017 revealed a left [...] U.S. Mail. This document was generated utilizing [employer] dictation. I have reviewed and verified that the contents of the document are accurate with the exception of minor grammatical, spelling and punctuation errors. CONTACT INFORMATION: Thank you for allowing us to participate in the care of this very pleasant patient. Please free to contact us if we can be of any further assistance. Ceasar Cunha MD, [facility] Natal[place] Department of Cardiovascular Medicine Heart and Vascular [place] At [address] [address] Office: [phone] Referring Provider: JOSE ANTONIO GARZA [[id number]] Allergies As of Date: 05/30/2018 Noted Allergy [...] by JENNY CUNHA MD on 05/30/18 Normal [facility] PROGRESSon 05-30-2018 Protein mass conc HNO ID: [id number] Author: Ceasar Cunha Service: (none) Author Type: Physician Type: Progress Notes Filed: 05/30/2018 9:42 AM Note Text: [facility] V[facility] [place] Nataly Rodriguez Department of Cardiovascular Medicine OUTPATIENT VISIT DATE 05/30/18 OUTPATIENT VISIT TYPE ESTABLISHED PRIMARY CARE PHYSICIAN: Jose Antonio Garza MD [address] [place] [phone] CHIEF COMPLAINT: Patient presents with: Follow Up [...] visit. Apparently she had a hospitalization at [facility] which led to transfer [place] [facility] She had a cardiac catheterization performed [...] T-wave changes. The patient was sent to [facility] room where she was evaluated and eventually transferred to [facility] where she underwent a cardiac catheterization [...] her echocardiogram noted above. Cardiac catheterization at [facility] [place] January 2017 revealed normal coronary arteries and a mild to moderate reduction in left ventricular ejection fraction at 40%. The LVEDP was elevated at 20-25 mmHg. A 2-D echocardiogram performed at [facility] in [place] 2017 revealed a left [...] U.S. Mail. This document was generated utilizing [employer] dictation. I have reviewed and verified that the contents of the document are accurate with the exception of minor grammatical, spelling and punctuation errors. CONTACT INFORMATION: Thank you for allowing us to participate in the care of this very pleasant patient. Please free to contact us if we can be of any further assistance. Ceasar Cunha MD, [facility] [place] Department of Cardiovascular Medicine Heart and Vascular [place] [facility] [address], [place] [address] Office: [phone] Normal [facility] CNOVon 01-30-2018 CNOV Office Visit (CARDFT ) FELICITY PHILLIPS ([id number]) 1965 F Date Time Provider Department 01/30/18 10:30 AM CEASAR CUNHA During your visit today, we recorded the following information about you: Pulse Respiration Blood pressure Weight 69/minute 16/minute 133/74 102.1 kg Ceasar Cunha MD 01/30/2018 11:03 AM [facility] [place] [facility] Rodriguez Department of Cardiovascular Medicine OUTPATIENT VISIT DATE 01/30/18 OUTPATIENT VISIT TYPE ESTABLISHED PRIMARY CARE PHYSICIAN: Jose Antonio Garza MD [address] [facility] [phone] CHIEF COMPLAINT: Patient presents with: Follow Up [...] visit. Apparently she had a hospitalization at [facility] which led to transfer [place] [facility] She had a cardiac catheterization performed [...] T-wave changes. The patient was sent to [place] [facility] room where she was evaluated and eventually transferred to [facility] where she underwent a cardiac catheterization [...] her echocardiogram noted above. Cardiac catheterization at [facility] [place] January 2017 revealed normal coronary arteries and a mild to moderate reduction in left ventricular ejection fraction at 40%. The LVEDP was elevated at 20-25 mmHg. A 2-D echocardiogram performed at [facility] [place] 2017 revealed a left [...] U.S. Mail. This document was generated utilizing [employer] dictation. I have reviewed and verified that the contents of the document are accurate with the exception of minor grammatical, spelling and punctuation errors. CONTACT INFORMATION: Thank you for allowing us to participate in the care of this very pleasant patient. Please free to contact us if we can be of any further assistance. Ceasar Cunha MD, [facility] Danna Rodriguez Department of Cardiovascular Medicine Heart and Vascular [place] [facility] [place] [address] Office: [phone] Referring Provider: JOSE ANTONIO GARZA [[id number]] Allergies As of Date: 01/30/2018 Noted Allergy [...] by JENNY CUNHA MD on 01/30/18 Normal [facility] PROGRESSon 01-30-2018 Protein mass conc HNO ID: [id number] Author: Ceasar Cunha Service: (none) Author Type: Physician Type: Progress Notes Filed: 01/30/2018 11:03 AM Note Text: [facility] [place] Nataly Rodriguez Department of Cardiovascular Medicine OUTPATIENT VISIT DATE 01/30/18 OUTPATIENT VISIT TYPE ESTABLISHED PRIMARY CARE PHYSICIAN: Jose Antonio Garza MD [address] [facility] [phone] CHIEF COMPLAINT: Patient presents with: Follow Up [...] visit. Apparently she had a hospitalization at [facility] which led to transfer [place] [facility] She had a cardiac catheterization performed [...] T-wave changes. The patient was sent to [place] [facility] room where she was evaluated and eventually transferred to [facility] where she underwent a cardiac catheterization [...] her echocardiogram noted above. Cardiac catheterization at [facility] [place] January 2017 revealed normal coronary arteries and a mild to moderate reduction in left ventricular ejection fraction at 40%. The LVEDP was elevated at 20-25 mmHg. A 2-D echocardiogram performed at [facility] [place] 2017 revealed a left [...] U.S. Mail. This document was generated utilizing [employer] dictation. I have reviewed and verified that the contents of the document are accurate with the exception of minor grammatical, spelling and punctuation errors. CONTACT INFORMATION: Thank you for allowing us to participate in the care of this very pleasant patient. Please free to contact us if we can be of any further assistance. Ceasar Cunha MD, [facility] Department of Cardiovascular Medicine Heart and Vascular [place] [facility] [place] [address] Office: [phone] Normal [facility] Vital Signs Date Time Vital Sign Value Performing Clinician Facility 11-10-2023 14:38-0400 Body height 154.9 cm Amanuel Valladares TRANSFORMER ASSEMBLY SUPERVISOR-LOAN DOCUMENTATION SPECIALIST Work Phone: [facility] 11-10-2023 14:38-0400 Body mass index (BMI) [Ratio] 40.43 kg/m2 Amanuel Valladares TRANSFORMER ASSEMBLY SUPERVISOR-LOAN DOCUMENTATION SPECIALIST Work Phone: [facility] 11-10-2023 14:38-0400 Body weight 97.07 kg Amanuel Valladares TRANSFORMER ASSEMBLY SUPERVISOR-LOAN DOCUMENTATION SPECIALIST Work Phone: [facility] 11-10-2023 14:38-0400 Diastolic blood pressure 92 mm[Hg] Amanuel Valladares TRANSFORMER ASSEMBLY SUPERVISOR-LOAN DOCUMENTATION SPECIALIST Work Phone: [facility] 11-10-2023 14:38-0400 Heart rate 69 /min Amanuel Valladares APRN-LOAN DOCUMENTATION SPECIALIST Work Phone: [facility] 11-10-2023 14:38-0400 Systolic blood pressure 138 mm[Hg] Amanuel Valladares TRANSFORMER ASSEMBLY SUPERVISOR-LOAN DOCUMENTATION SPECIALIST Work Phone: [facility] 05-31-2023 23:54-0500 Diastolic blood pressure 80 mm[Hg] MD Jose Antonio Garza Work Phone: [facility] 05-31-2023 23:54-0500 Systolic blood pressure 178 mm[Hg] MD Jose Antonio Garza Work Phone: [facility] 05-31-2023 21:57-0500 Body height 152.4 cm MD Jose Antonio Garza Work Phone: [facility] 05-31-2023 21:57-0500 Body temperature 98.9 [degF] MD Jose Antonio Garza Work Phone: [facility] 05-31-2023 21:57-0500 Body weight 102.65 kg MD Jose Antonio Garza Work Phone: [facility] 05-31-2023 21:57-0500 Heart rate 98 /min MD Jose Antonio Garza Work Phone: [facility] 05-31-2023 21:57-0500 Respiratory rate 20 /min MD Jose Antonio Garza Work Phone: [facility] 05-31-2023 21:57-0500 SaO2% (BldA) [Mass fraction] 96 % MD Jose Antonio Garza Work Phone: [facility] 05-11-2023 08:13-0400 Body height 154.9 cm Amanuel Valladares TRANSFORMER ASSEMBLY SUPERVISOR-LOAN DOCUMENTATION SPECIALIST Work Phone: [facility] 05-11-2023 08:13-0400 Body mass index (BMI) [Ratio] 42.32 kg/m2 Amanuel Valladares TRANSFORMER ASSEMBLY SUPERVISOR-LOAN DOCUMENTATION SPECIALIST Work Phone: [facility] 05-11-2023 08:13-0400 Body weight 101.61 kg Amanuel Valladares TRANSFORMER ASSEMBLY SUPERVISOR-LOAN DOCUMENTATION SPECIALIST Work Phone: [facility] 05-11-2023 08:13-0400 Diastolic blood pressure 80 mm[Hg] Amanuel Valladares TRANSFORMER ASSEMBLY SUPERVISOR-LOAN DOCUMENTATION SPECIALIST Work Phone: [facility] 05-11-2023 08:13-0400 Heart rate 92 /min Amanuel Valladares TRANSFORMER ASSEMBLY SUPERVISOR-LOAN DOCUMENTATION SPECIALIST Work Phone: [facility] 05-11-2023 08:13-0400 Systolic blood pressure 130 mm[Hg] Amanuel Valladares TRANSFORMER ASSEMBLY SUPERVISOR-LOAN DOCUMENTATION SPECIALIST Work Phone: [facility] 02-24-2023 11:56-0400 Body temperature 98.06 [degF] [facility] 02-24-2023 11:56-0400 Diastolic blood pressure 100 mm[Hg] [facility] 02-24-2023 11:56-0400 Heart rate 89 /min [facility] 02-24-2023 11:56-0400 Respiratory rate 16 /min [facility] 02-24-2023 11:56-0400 SaO2% (BldA) [Mass fraction] 98 % [facility] 02-24-2023 11:56-0400 Systolic blood pressure 200 mm[Hg] [facility] 11-25-2022 12:00-0400 Body height 154.94 cm Nancy Kapadia Other [facility] [employer] Other 11-25-2022 12:00-0400 Body mass index (BMI) [Ratio] 45.91 kg/m2 Nancy Kapadia Other [facility] Other 11-25-2022 12:00-0400 Body weight 110.22 kg Nancy Kapadia Other [facility] Other 11-25-2022 12:00-0400 Diastolic blood pressure 98 mm[Hg] Nancy Kapadia Other [facility] Other 11-25-2022 12:00-0400 Systolic blood pressure 160 mm[Hg] Nancy Kapadia Other [facility] Other 07-07-2022 14:00-0500 Body height 154.94 cm Kyle Call II Other [facility] Other 07-07-2022 14:00-0500 Body mass index (BMI) [Ratio] 41.56 kg/m2 Kyle Call II Other [facility] Other 07-07-2022 14:00-0500 Body weight 99.79 kg Kyle Call II Other [facility] Other 07-05-2022 13:34-0500 Body height 154.94 cm MD Jose Antonio Garza Work Phone: [facility] 07-05-2022 13:34-0500 Body temperature 97.5 [degF] MD Jose Antonio Garza Work Phone: [facility] 07-05-2022 13:34-0500 Body weight 100 kg MD Jose Antonio Garza Work Phone: [facility] 07-05-2022 13:34-0500 Diastolic blood pressure 98 mm[Hg] MD Jose Antonio Garza Work Phone: [facility] 07-05-2022 13:34-0500 Heart rate 85 /min MD Jose Antonio Garza Work Phone: [facility] 07-05-2022 13:34-0500 Respiratory rate 20 /min MD Jose Antonio Garza Work Phone: [facility] 07-05-2022 13:34-0500 SaO2% (BldA) [Mass fraction] 96 % MD Jose Antonio Garza Work Phone: [facility] 07-05-2022 13:34-0500 Systolic blood pressure 188 mm[Hg] MD Jose Antonio Garza Work Phone: [facility] 05-19-2022 14:53-0400 Blood Pressure Location Jose Carlos SALCEDO [facility] 05-19-2022 14:53-0400 Diastolic blood pressure 82 mm[Hg] Jose Carlos SALCEDO [facility] 05-19-2022 14:53-0400 Heart rate 80 /min Jose Carlos FARAHL [facility] 05-19-2022 14:53-0400 Respiratory rate 16 /min Jose Carlos FARAHL [facility] 05-19-2022 14:53-0400 Systolic blood pressure 120 mm[Hg] Jose Carlos FARAHL [facility] 05-10-2022 09:07-0400 Body temperature 98.06 [degF] Mamadou Gonzalez [facility] 05-10-2022 09:07-0400 Diastolic blood pressure 88 mm[Hg] Mamadou Gonzalez [facility] 05-10-2022 09:07-0400 Heart rate 68 /min Mamadou Gonzalez [facility] 05-10-2022 09:07-0400 Respiratory rate 20 /min Mamadou Gonzalez [facility] 05-10-2022 09:07-0400 SaO2% (BldA) [Mass fraction] 98 % Mamadou Gonzalez [facility] 05-10-2022 09:07-0400 Systolic blood pressure 146 mm[Hg] Mamadou Gonzalez [facility] 03-18-2022 08:56-0400 Body height 154.94 cm Jose Antonio [employer] Work Phone: [facility] 250 DO Work Phone: 03-18-2022 08:56-0400 Body mass index (BMI) [Ratio] 43.69 kg/m2 Jose Antonio [employer] Work Phone: [facility] 250 DO Work Phone: 03-18-2022 08:56-0400 Body surface area Derived from formula 2.01 m2 Jose Antonio Fabrice Hoy Work Phone: [facility] 250 DO Work Phone: 03-18-2022 08:56-0400 Body weight 104.89 kg Jose Antonio Fabrice Hoy Work Phone: [facility] 250 DO Work Phone: 03-18-2022 08:56-0400 Diastolic blood pressure 82 mm[Hg] Jose Antonio Fabrice Hoy Work Phone: [facility] 250 DO Work Phone: 03-18-2022 08:56-0400 Heart rate 78 /min Jose Antonio Fabrice Hoy Work Phone: [facility] 250 DO Work Phone: 03-18-2022 08:56-0400 Systolic blood pressure 140 mm[Hg] Jose Antonio Avina Hoy Work Phone: [facility] 250 DO Work Phone: Encounters Encounter Date Encounter Type Care Provider Facility Start: 11-10-2023 End: 11-10-2023 ambulatory [facility] Ambulatory Start: 11-10-2023 End: 11-10-2023 Encounter for other preprocedural examination [facility] Start: 11-10-2023 End: 11-10-2023 Office outpatient visit 15 minutes Amanuel Lindsey Valladares TRANSFORMER ASSEMBLY SUPERVISOR-LOAN DOCUMENTATION SPECIALIST Work Phone: [facility] Comment on above: Pre-operative cleara nce (Primary Dx); Non-ischemic cardiomyopathy (Multi); Primary hypertension; Morbid obesity (Multi) Start: 11-10-2023 End: 11-10-2023 Preoperative state Amanuel Rosalia Valladares TRANSFORMER ASSEMBLY SUPERVISOR-LOAN DOCUMENTATION SPECIALIST Work Phone: [facility] Work Phone: Start: 10-31-2023 ambulatory FCO COLLIER Facil ity:[facility] Start: 09-27-2023 End: 09-27-2023 ambulatory Kyle Calderon Facility:[facility] Start: 08-01-2023 End: 08-01-2023 ambulatory BRITTANY Alonso MACEY Not Available Start: 06-27-2023 End: 06-27-2023 ambulatory BRITTANY Celeste CHOUDHURY Not Available Start: 06-21-2023 End: 06-21-2023 ambulatory BRITTANY CHOUDHURY Not Available Start: 05-31-2023 End: 06-01-2023 Emergency department patient visit Stef Molina Jr Facility:[facility] Start: 05-31-2023 End: 05-31-2023 Emergency department patient visit MD Jose Antonio Garza Work Phone: [facility] Work Phone: Start: 05-11-2023 End: 05-11-2023 ambulatory [facility] Start: 05-11-2023 End: 05-11-2023 Office outpatient visit 15 minutes [facility] TRANSFORMER ASSEMBLY SUPERVISOR-LOAN DOCUMENTATION SPECIALIST Work Phone: [facility] Comment on above: Non-ischemic cardiom yopathy (CMS/HCC) (Primary Dx); Primary hypertension; Obstructive sleep apnea syndrome; Morbid obesity (CMS/HCC); Hypertension, unspecified type; SOB (shortness of breath) on exertion Start: 04-28-2023 End: 04-28-2023 ambulatory Jose Antonio Garza Facility:[facility] Start: 04-28-2023 End: 04-28-2023 ambulatory MD Jose Antonio Garza Work Phone: [facility] Work Phone: Start: 04-28-2023 End: 04-28-2023 Patient encounter procedure MD Jose Antonio Garza Work Phone: [facility]-Lab [address] Work Phone: Start: 03-28-2023 Rx Renewal Jose Antonio Garza Work Phone: [facility] 250 DO Work Phone: Start: 02-24-2023 End: 02-24-2023 Emergency department patient visit Briana Winters Facility:[facility] Start: 02-24-2023 End: 02-24-2023 Emergency department patient visit Briana Winters [facility] Start: 01-05-2023 End: 01-05-2023 ambulatory Kyle Calderon Facility:[facility] Start: 01-05-2023 End: 01-05-2023 ambulatory MD Jose Antonio Garza Work Phone: [facility] Work Phone: Start: 01-05-2023 End: 01-05-2023 Patient encounter procedure MD Jose Antonio Garza Work Phone: [facility] [address] Work Phone: Start: 11-30-2022 End: 11-30-2022 ambulatory Maxi Glez Other [place] [employer] Other Start: 11-30-2022 Telephone encounter Maxi Glez [employer] Start: 11-25-2022 End: 11-25-2022 ambulatory Nancy Kapadia Other [facility] [employer] Other Start: 11-25-2022 Office outpatient ne w 45 minutes Nancy Kapadia [facility] Start: 11-22-2022 Rx Renewal Jose Antonio Garza Work Phone: [facility] [address] DO Work Phone: Start: 11-13-2022 End: 11-14-[address] JOSE ANTONIO GARZA . Facility: Start: 11-03-2022 End: 11-03-2022 ambulatory Kyle Calderon Facility:[facility] Start: 11-03-2022 End: 11-03-2022 ambulatory MD Jose Antonio Garza Work Phone: [facility] Work Phone: Start: 11-03-2022 End: 11-03-2022 Patient encounter procedure MD Jose Antonio Garza Work Phone: [facility] [facility] [address] Work Phone: Start: 11-01-2022 Rx Renewal Jose Antonio Garza Work Phone: [facility] DO Work Phone: Start: 10-19-2022 End: 10-19-2022 ambulatory Kyle Las Animas II Other [facility] Other Start: 10-19-2022 Telephone encounter Kyle Las Animas II [facility] Start: 10-07-2022 End: 10-07-2022 ambulatory Kyle Las Animas II Other [facility] Other Start: 10-07-2022 Telephone encounter Kyle Jakub II [facility] Start: 09-29-2022 Office outpatient vi sit 25 minutes Kyle Las Animas II [facility] Start: 09-29-2022 End: 09-29-2022 ambulatory MD Jose Antonio Garza Work Phone: [facility] Work Phone: Start: 09-29-2022 End: 09-29-2022 Patient encounter procedure MD Jose Antonio Garza Work Phone: [facility] Start: 09-06-2022 Rx Renewal Jose Antonio Garza Work Phone: [facility] 250 DO Work Phone: Start: 08-02-2022 End: 08-02-2022 ambulatory Kyle Las Animas II Other [facility] Other Start: 08-02-2022 Telephone encounter Kyle Las Animas II [facility] Start: 07-30-2022 End: 07-30-2022 ambulatory Kyle Las Animas II Other [facility] Other Start: 07-30-2022 Office outpatient vi sit 25 minutes Kyle Las Animas II [facility] Start: 07-27-2022 End: 07-27-2022 Patient encounter procedure MD Jose Antonio Garza Work Phone: [facility] [address] Work Phone: Start: 07-22-[address] JOSE ANTONIO GARZA . Facili ty:H1 Start: 07-07-2022 Office outpatient ne w 45 minutes Ykle Las Animas II [facility] Start: 07-07-2022 End: 07-07-2022 ambulatory MD Jose Antonio Garza Work Phone: [facility] Work Phone: Start: 07-07-2022 End: 07-07-2022 Patient encounter procedure MD Jose Antonio Garza Work Phone: [facility] Start: 07-05-2022 End: 07-05-2022 Emergency department patient visit MD Jose Antonio Garza Work Phone: [facility]-Emergency Room Start: 06-30-2022 End: 06-30-[address] JOSE ANTONIO GARZA . Facility:H1 Start: 05-19-2022 End: 05-19-[address] JOSE ANTONIO GARZA . Facility:[facility]1 Start: 05-19-2022 End: 05-19-2022 Patient encounter procedure Jose Carlos SALCEDO General Surgery Nill/Said Jaleel Start: 05-10-2022 End: 05-10-2022 Emergency department patient visit Mamadou Carlos [facility] Start: 03-18-2022 Office outpatient vi sit 15 minutes Jose Antonio Garza Work Phone: [facility] 250 DO Work Phone: Start: 03-01-2022 End: 03-01-[address] JOSE ANTONIO GARZA . Facility:H1 Start: 02-22-2022 End: 02-22-2022 Patient encounter procedure MD Jose Antonio Garza Work Phone: [facility] [address] Start: 02-15-2022 End: 02-16-[address] JOSE ANTONIO GARZA . Facility:[facility]1 Start: 02-10-2022 End: 02-10-2022 Patient encounter procedure MD Jose Antonio Garza Work Phone: [facility] [address] Start: 01-26-2022 Rx Renewal Jose Antonio Garza Work Phone: [facility] 250 DO Work Phone: Start: 01-22-2022 Rx Renewal Jose Antonio Garza Work Phone: [facility] 250 DO Work Phone: Start: 10-06-2021 AUDIT Jose Antonio Garza Work Phone: [facility] DO Work Phone: Start: 10-17-2018 Patient encounter procedure PROVIDER UNKNOWN Facility:[id number] Start: 10-17-2018 Patient encounter procedure Facility:[id number] Start: 05-30-2018 End: 06-09-2018 Patient encounter procedure CEASAR CUNHA [facility] Start: 01-30-2018 End: 01-30-2018 Patient encounter procedure CEASAR CUNHA [facility] Start: 04-07-2017 End: 04-08-2017 Ambulatory DEFAULT PHYSICIAN Facility:[facility] Procedures Date Procedure Procedure Detail Performing Clinician Start: 11-10-2023 Ecg routine ecg w/le ast 12 lds w/i&r Amanuel Valladares TRANSFORMER ASSEMBLY SUPERVISOR-LOAN DOCUMENTATION SPECIALIST Work Phone: Start: 05-31-2023 SARS-CoV-2, Influenz a [...] DTaP/Tdap/Td Vaccines (3 - Td or Tdap) [facility] Start: 05-09-2024 End: 05-09-2024 Patient encounter procedure 05/09/2024 8:00 AM EDT Office Visit [facility] [address] [facility] [facility] [address] [place] [id number] Amanuel Valladares, TRANSFORMER ASSEMBLY SUPERVISOR-LOAN DOCUMENTATION SPECIALIST [address] [facility] [facility] [address] [place] [address] [facility] Start: 04-23-2024 End: 04-23-2024 Patient encounter procedure 04/23/2024 8:00 AM EDT Office Visit [facility] [address] [facility] [address] [place] [address] Amanuel Valladares, TRANSFORMER ASSEMBLY SUPERVISOR-LOAN DOCUMENTATION SPECIALIST [address] [facility] [facility] [address] [place] [address] [facility] Start: 03-18-2024 Influenza vaccination Influenza Vaccine (Season Ended) [facility] Start: 05-31-2023 Plain chest X-ray XR chest 2V* [facility] Start: 05-31-2023 XR Chest 2 Views [facility] Start: 05-11-2023 FUV, Provider: Amanuel Davis, Status: Pen, Time: 8:00 AM FUV, Provider: Amanuel Davis, Status: Pen, Time: 8:00 AM [facility] 250 DO Work Phone: Start: 03-23-2023 FUV, Provider: Amanuel Davis, Status: Pen, Time: 9:00 AM FUV, Provider: Amanuel Davis, Status: Pen, Time: 9:00 AM [facility] 250 DO Work Phone: Start: 03-18-2023 Influenza vaccination Influenza Vaccine (#1) [facility] Start: 03-17-2022 FUV, Provider: Frandy Fung, Status: Pen, Time: 10:10 AM FUV, Provider: Frandy Fung, Status: Pen, Time: 10:10 AM [facility] DO Work Phone: Start: 02-22-2022 End: 02-22-2022 Patient encounter procedure Departed Clinical [facility] [address] Start: 12-17-2021 FUV, Provider: Frandy Fung, Status: Pen, Time: 9:50 AM FUV, Provider: Frandy Fung, Status: Pen, Time: 9:50 AM [facility] 250 DO Work Phone: Start: 11-22-2020 COVID-19 Vaccine (3 - Moderna risk series) COVID-19 Vaccine (3 - Moderna risk series) [facility] Start: 2006 Screening for malignant neoplasm of breast Mammogram [facility] Start: 1987 Screening for malignant neoplasm of cervix [facility] Start: 1985 Hepatitis B Vaccines (1 of 3 - 19+ 3-dose series) Hepatitis B Vaccines (1 of 3 - 19+ 3-dose series) [facility] Start: 1985 Zoster Vaccines (1 of 2) Zoster Vaccines (1 of 2) [facility] Start: 1984 Diabetes mellitus screening Diabetes Screening [facility] Start: 1984 Hepatitis C screening Hepatitis C Screening [facility] Start: 1972 Pneumococcal Vaccine: Pediatrics (0 to 5 Years) and At-Risk Patients (6 to 64 Years) (1 - PCV) Pneumococcal Vaccine: Pediatrics (0 to 5 Years) and At-Risk Patients (6 to 64 Years) (1 - PCV) [facility] Start: 1972 Pneumococcal Vaccine: Pediatrics (0 to 5 Years) and At-Risk Patients (6 to 64 Years) (1 of 2 - PCV) Pneumococcal Vaccine: Pediatrics (0 to 5 Years) and At-Risk Patients (6 to 64 Years) (1 of 2 - PCV) [facility] Start: 1967 MMR Vaccines (1 of 1 - Standard series) MMR Vaccines (1 of 1 - Standard series) [facility] Start: 1966 Hepatitis B Vaccines (1 of 3 - 3-dose series) Hepatitis B Vaccines (1 of 3 - 3-dose series) [facility] Start: 1966 HIV screening HIV Screening [facility] Start: 1966 Lipid panel Lipid Panel [facility] Start: 1966 Screening for malignant neoplasm of colon [facility] Start: 1966 Yearly Adult Physical Yearly Adult Physical [facility] ECG 12 Lead ECG 12 Lead ECG Routine Pre-operative clearance 11/10/2023 2:30 PM EDT [facility] Service Area Work Phone: Patient Education [facility] Work Phone: Patient referral [facility] Work Phone: Immunizations Immunization Date Immunization Notes Care Provider Shanta gladys 05-10-2022 tetanus toxoid, redu lorena diphtheria toxoid, and acellular pertussis vaccine, adsorbed Mamadou Gonzalez [facility] 05-27-2021 influenza virus vaccine, unspecified formulation Jose Antonio M Hoy Work Phone: [facility] 250 DO Work Phone: 10-25-2020 Moderna COVID-19 Vaccine 100 MCG/0.5ML Intramuscular Suspension Jose Antonio M Hoy Work Phone: [facility] 250 DO Work Phone: 09-27-2020 Moderna COVID-19 Vaccine 100 MCG/0.5ML Intramuscular Suspension Jose Antonio M Hoy Work Phone: [facility] 250 DO Work Phone: 05-16-2020 influenza virus vaccine, unspecified formulation Jose Antonio M Hoy Work Phone: [facility] DO Work Phone: 04-27-2020 influenza virus vaccine, unspecified formulation Jose Antonio M Hoy Work Phone: [facility] 250 DO Work Phone: 04-27-2020 influenza, seasonal, injectable Amanuel Valladares TRANSFORMER ASSEMBLY SUPERVISOR-LOAN DOCUMENTATION SPECIALIST Work Phone: [facility] Work Phone: 05-17-2019 influenza virus vaccine, unspecified formulation Jose Antonio M Hoy Work Phone: [facility] 250 DO Work Phone: 04-17-2018 influenza virus vaccine, unspecified formulation Jose Antonio M Hoy Work Phone: [facility] 250 DO Work Phone: 04-28-2016 influenza, injectabl e, quadrivalent, preservative free Jose Antonio M Hoy Work Phone: [facility] 250 DO Work Phone: 04-22-2016 influenza, seasonal, injectable Jose Antonio Garza Work Phone: [facility] 04-17-2016 influenza virus vaccine, unspecified formulation Jose Antonio Garza Work Phone: [facility] 250 DO Work Phone: 06-08-2014 tetanus toxoid, redu lorena diphtheria toxoid, and acellular pertussis vaccine, adsorbed Kyle Las Animas II Other [facility] [employer] Other 06-01-2010 tetanus toxoid, redu lorena diphtheria toxoid, and acellular pertussis vaccine, adsorbed Mamadou Gonzalez [facility] Payers Date Payer Category Payer Unknown 1965 Unknown [id number] 1966 Unknown [id number] [id number] 1966 Unknown [id number] [id number] 1966 Unknown [id number] 2.16.840.1.541268.3.579.2.593 1966 Unknown [id number] 2.16.840.1.013301.3.579.2.593 1966 Unknown [id number] 2.16.840.1.425077.3.579.2.593 1966 Unknown [id number] 2.16.840.1.068393.3.579.2.593 1966 Unknown [id number] 2.16.840.1.767130.3.579.2.593 1966 Unknown [id number] 2.16.840.1.641475.3.579.2.1259 1966 Unknown [id number] 2.16.840.1.192244.3.579.2.1259 1966 Unknown [id number] 2.16.840.1.565791.3.579.2.1259 1966 Unknown [id number] 2.16.840.1.533611.3.579.2.1244 1966 Unknown [id number] 2.16.840.1.496137.3.579.2.1244 1966 Unknown [id number] 2.16.840.1.844471.3.579.2.727 1966 Unknown [id number] 2.16.840.1.562769.3.579.2.727 1959 Self-pay [id number] 1959 Unknown [id number] Unknown [id number] 2.16.840.1.357997.3.579.2.531 Unknown [id number] [id number] Unknown [id number] 2.16.840.1.417645.3.579.2.531 Unknown [id number] 2.16.840.1.077361.3.579.2.531 Unknown [id number] [id number] Worker's Compensation [employer] [id number] Social History Date Type Detail Facility Start: 05-11-2023 Caffeine use Caffeine use -[facility] 250 DO Work Phone: Comment on above: OCCASIONAL COFFEE; QUIT 1988 07/19 PPD; Start: 06-01-2021 End: 05-11-2023 Tobacco smoking status NHIS Never smoked tobacco (finding) [facility] Start: 1965 Sex Assigned At Female F [facility] Start: 05-11-2023 Sex Assigned At Female F [facility] Tobacco smoking status Never [facility] Start: 05-11-2023 End: 11-10-2023 Tobacco use and exposure Smokeless tobacco non-user [facility] Work Phone: Start: 05-11-2023 End: 11-10-2023 Alcohol intake Current drinker of alcohol (finding) [facility] Work Phone: Start: 05-11-2023 Alcohol Comment social [facility] Work Phone: Start: 1965 Sex Assigned At Not on file [facility] Work Phone: Start: 05-01-2023 End: 11-10-2023 Exposure to SARS-CoV-2 (event) Not sure [facility] Start: 05-31-2023 End: 11-10-2023 Tobacco smoking status NHIS Ex-smoker (finding) [facility] History of tobacco use Current smoker [facility] Work Phone: History of tobacco use Cigarette Smoker [facility] Work Phone: Functional Status Date Assessment Result Facility 02-24-2023 Functional Status N/A [facility] 05-19-2022 Functional Status N/A [facility] 05-10-2022 Functional Status N/A [facility] Clinical Notes 02-16-2022 to 11-10-2023 Assessment & Plan Note - KADE Riggs - 11/10/2023 3:45 PM EDTAssessment & Plan Note - KADE Riggs - 11/10/2023 3:45 PM EDTPatient InstructionsPatient Instructions Note Date & Type Note Facility 11-10-2023 Evaluation + Plan note Associated Problem(s): Morbid obesity (Multi) Reviewed the merits of healthy lifestyle choices on overall cardiovascular health. [facility] Work Phone: 11-10-2023 Evaluation + Plan note Associated Problem(s): Hypertension Optimal in office [facility] Work Phone: 11-10-2023 Evaluation + Plan note Associated Problem(s): Non-ischemic cardiomyopathy (Multi) HF improved EF 64% December 2020 MUGA (08/2020 TTE EF 30%) FC II Stage C Remains on optimal GDMT [facility] Work Phone: 11-10-2023 Miscellaneous Notes Associated Problem(s): Morbid obesity (Multi) Reviewed the merits of healthy lifestyle choices on overall cardiovascular health. Associated Problem(s): Hypertension Optimal in office Associated Problem(s): Non-ischemic cardiomyopathy (Multi) HF improved EF 64% December 2020 MUGA (08/2020 TTE EF 30%) FC II Stage C Remains on optimal GDMT documented in this encounter [facility] Work Phone: 11-10-2023 History of Presen t [...] without voiced cardiovascular complaints. Patient presents to [facility] to obtain cardiac risk stratification prior to a lumbar fusion. Surgeon: Dr. Alexander. Planned date: December 02, 2023 Patient presents to the office today with activity level > 4 METS. Daily activity includes: ADLs, housework, works full-time at [employer] Total DASI: 31.45 METs: 6.6 EKG in office: Normal sinus rhythm, nonspecific changes. No ischemia. ACC/AHA guidelines: 1. Major clinical markers: -Acute coronary syndrome or SC within 30 days: No -Decompensated heart failure: No -Significant arrhythmia: No -Severe valvular heart disease: No 2. Intermediate clinical markers -History of ischemic heart disease (prior SC, current chest pain secondary to ischemia, use [...] risk to proceed with surgical procedure. Amanuel Vallaadres MSN, TRANSFORMER ASSEMBLY SUPERVISOR-LOAN DOCUMENTATION SPECIALIST, PMHNP-[facility] Please excuse any errors in grammar or translation related to this dictation. Voice recognition software was utilized to prepare this document. documented in this encounter [facility] Work Phone: 11-10-2023 Instructions KADE Riggs - [...] arise. As scheduled documented in this encounter [facility] Work Phone: 05-11-2023 Evaluation + Plan note Associated Problem(s): SOB (shortness of breath) on exertion No evidence of volume overload Minimal complaints mostly due to deconditioning [facility] Work Phone: 05-11-2023 Miscellaneous Notes Associated Problem(s): [...] coronaries: EF 40% documented in this encounter [facility] Work Phone: 05-11-2023 Evaluation + Plan note Associated Problem(s): Hypertension Optimal in office [facility] Work Phone: 05-11-2023 Evaluation + Plan note Associated Problem(s): Non-ischemic cardiomyopathy (CMS/HCC) HF improved EF 64% December 2020 MUGA (08/2020 TTE EF 30%) FC II Stage C Remains on optimal GDMT [facility] Work Phone: 05-11-2023 Evaluation + Plan note Associated Problem(s): Morbid obesity (CMS/HCC) Reviewed the merits of healthy lifestyle choices on overall cardiovascular health. [facility] Work Phone: 05-11-2023 Evaluation + Plan note Associated Problem(s): Sleep apnea Remains compliant with CPAP [facility] Work Phone: 05-11-2023 Evaluation + Plan note Associated Problem(s): Cardiac and Vasculature 2017 Cardiac cath angiographically normal coronaries: EF 40% [facility] Work Phone: 05-11-2023 History of Presen t [...] She is able to walk into the [employer] without any complaints. She is actively working on weight loss. 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 Denies any change [...] contact the office if new symptoms arise. 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 Reviewed diet, exercise and weight control. Reviewed medications and side effects in detail. Amanuel Valladares MSN, TRANSFORMER ASSEMBLY SUPERVISOR-LOAN DOCUMENTATION SPECIALIST, PMHNP-[facility] Please excuse any errors in grammar or translation related to this dictation. Voice recognition software was utilized to prepare this document. documented in this encounter [facility] Work Phone: 05-11-2023 Instructions KADE Riggs - [...] contact the office if new symptoms arise. BATTERY ASSEMBLER annual follow-up documented in this encounter [facility] Work Phone: 02-24-2023 Hospital Discharg e instructions [...] Follow these instructions at home: Medicines Take mzhf-cqn-fsouknn and prescription medicines only as told by [...] and water are not available, use hand lead pharmacy technician. Check your abscess every day for signs [...] provider. Document Revised: 04/12/2022 Document Reviewed: 04/12/2022 [employer] Patient Education 2022 Pathagility. 02/24/2023 13:18:12 Cellulitis, Adult Cellulitis, Adult Cellulitis [...] Follow these instructions at home: Medicines Take oysj-zre-dojiljt and prescription medicines only as told by [...] such as antibiotic medicines or antihistamines. Take vnvj-mxk-ajlwckn and prescription medicines only as told by [...] provider. Document Revised: 04/15/2022 Document Reviewed: 04/15/2022 [employer] Patient Education 2022 Pathagility. Follow Up Care 02/24/2023 11:55:51 With:Jose Antonio Garza Address: [address] [place] [address] Business (1) When:02/27/2023 13:03:40 [facility] 02-24-2023 Evaluation + Plan note Extrac edd from: Title:ED Note Author:Rodrick Mobley PA-C te:02/24/23 Abscess (L02.91: Cutaneous a bscess, unspecified) Cellulitis (L03.90: Cellulitis, unspecified) Orders: cephalexin, 500 mg = 1 cap(s), Oral, TID, Take one capsule by mouth three times a day for ten days, # 30 cap(s), Refills(s) 0, Pharmacy: [facility], 155, cm, 02/24/23 12:00:00 EDT, Height/Length Dosing, 108.2, kg, 02/24/23 12:00:00 EDT, Weight Dosing doxycycline, 100 mg = 1 tab(s), Oral, BID, X 10 day(s), # 20 tab(s), Refills(s) 0, Pharmacy: [facility], 155, cm, 02/24/23 12:00:00 EDT, Height/Length Dosing, 108.2, kg, 02/24/23 12:00:00 EDT, [facility]05-11-2023 Evaluation note* Encounter Date Diagnosis Assessment Notes Treatment Notes Treatment Clinical Notes November, Lumbosacral radiculopathy (ICD-10 - M54.17) IrReviewed x-ray of the pelvis from 09/29/2022 and which shows healing pubic [place] fractures. Upon examination noted right SI joint [...] continue with current prescriptions and will get iglv-bsv-hkmzkie Thermo patches. Follow-up in 6 weeks. Medical [...] Z13.31) PHQ reviewed score 0 negative screening [facility] Other 03-15-2023 Evaluation note* Encounter Date Diagnosis [...] with me on a as needed basis. [facility] Other 01-13-2023 Evaluation note* Encounter Date Diagnosis [...] right lower extremity. Recommended continued Tylenol and qnbp-wqu-mcaqcah anti-inflammatory use. Also recommended continued calcium and vitamin D supplementation which she has already been doing. I will plan to check back with her in about 8 weeks with repeat AP pelvis, inlet, outlet views to check on the healing progress. [facility] Other 12-21-2022 Evaluation note* Encounter Date Diagnosis [...] work until we get these MRI results. [facility] Other 10-24-2022 Evaluation + Plan noteExtracted from: Title:ED Note Author:Mamadou Gonzalez DO Date: Finger laceration (S61.219A: Laceration without foreign body of unspecified finger without damage to nail, initial encounter) Orders: tetanus/diphtheria/pertussis, acel (Tdap), 0.5 mL, Injection, Intramuscular-Immunization, Once, Stop date 05/10/22 9:16:00 EDT, STAT, Start date 05/10/22 9:16:00 EDT [facility]10-24-2022 Hospital Discharge instructions Follow Up Care 05/10/2022 09:04:11 With:Jose Antonio Garza Address: [address] [place], [place] [address]- Business (1) When:Within 3 Day(s) [facility]08-02-2022 NotePROCEDURE: XR HIPS HEATH 5V W PELVIS [...] by: JOSÉ MIGUEL SERNA Date: 2022-02-16 06:14[facility] Future Appointments Appointment Date:05/25/2022 02:40:00 PM Scheduled Provider:Jose Carlos SALCEDO MD Location:[facility] Appointment Type: Established 15 Diagnostic Tests Pending * Wound Culture 05/19/22 [facility] Evaluation noteNo assessment information available [facility] Work Phone: Evaluation noteNo InformationNort Biodesy Other Evaluation note* Diagnosis Non-ischemic cardiomyopathy (CMS/HCC)- Primary Other primary cardiomyopathies Primary hypertension Unspecified essential hypertension Obstructive sleep apnea syndrome Obstructive sleep apnea (adult) (pediatric) Morbid obesity (CMS/HCC) Morbid obesity Hypertension, unspecified type SOB (shortness of breath) on exertion Shortness of breath documented in this encounter [facility] Work Phone: Evaluation note* Diagnosis Pre-operative clearance- Primary Unspecified pre-operative examination Non-ischemic cardiomyopathy (Multi) Other primary cardiomyopathies Primary hypertension Unspecified essential hypertension Morbid obesity (Multi) Morbid obesity documented in this encounter [facility] Work Phone: [facility] general Narrative - Reported* Type Description Date Medical History RA Surgical History hysterectomy Surgical History cholecystectomy Surgical History appendectomy Surgical History left foot surgery ZALORA Other [facility] general Narrative - Reported* Type Description Date Medical History RA Surgical History hysterectomy Surgical History cholecystectomy Surgical History appendectomy Surgical History left foot surgery Hospitalization History see surg HX [facility]A Other Hospital course Narrative No data available for this section [facility] No data available for this section General Surgery [place] Progress note No data available for this section [facility] ([facility] Consultation (Routine) - Authorized Specialty Diagnoses / Procedures Referred By Reema rodriguez Referred To Contact Cardiology Diagnoses Non-ischemic cardiomyopathy (CMS/HCC) Primary hypertension Obstructive sleep apnea syndrome Procedures Follow Up In Cardiology Amanuel Valladares APRN-CNP [address] [facility] [address] [place] [address] Referral ID Status Reason Start Date Expiration Date V isits Requested Visits Authorized [id number] Authorized 05/11/2023 05/10/2024 1 1 T [facility] Work Phone: Summary Purpose Family History No [...] clearance Procedures ECG 12 Lead Amanuel Valladares, TRANSFORMER ASSEMBLY SUPERVISOR-LOAN DOCUMENTATION SPECIALIST [address] [facility] [address] [place] [address] Referral ID Status Reason Start Date Expiration Date V isits Requested Visits Authorized [id number] Authorized 11/10/2023 11/09/2024 1 1 Reason Aqua therapy - evalu ate and treat Diagnosis 1 Lumbosacral radiculo vanessa (M54.17) Referral Organization [facility] Referring Provider First Name Nancy Referring Provider Last Name Kapadia Referring Provider Specialty Nurse Pract itioner Referred Organization [facility] [place] Address [address] [place], [place],[address] Referred Provider Specialty Physical The rapist Referral Priority Routine Reason evaluate for Si inje ction Diagnosis 1 Lumbosacral radiculo vanessa (M54.17) Referral Organization [facility] Referring Provider First Name Nancy Referring Provider Last Name Kapadia Referring Provider Specialty Nurse Pract itioner Referred Organization [facility] Pain Managemen t Referred Provider Maxi Glez Referred Address [address] [facility] [address] ,[place], [place],[address] Referred Provider Specialty Pain Medicin e Referral Priority Routine Additional Source Comments INFORMATION SOURCE (unrecogn ized section and content) DATE CREATED AUTHOR 01/11/2018 [facility] DATE CREATED AUTHOR AUTHOR'S ORGANIZ ATION 08/11/2018 [facility] DATE CREATED AUTHOR AUTHOR'S ORGANIZ ATION 10/20/2018 [facility] DATE CREATED AUTHOR AUTHOR'S ORGANIZ ATION 10/21/2018 [facility] Center DATE CREATED AUTHOR AUTHOR'S ORGANIZ ATION 01/28/2021 [facility] DATE CREATED AUTHOR AUTHOR'S ORGANIZ ATION 03/19/2022 [facility] DATE CREATED AUTHOR AUTHOR'S ORGANIZ ATION 11/19/2022 [facility] pital DATE CREATED AUTHOR AUTHOR'S ORGANIZ ATION 08/01/2023 [facility] EPIC DATE CREATED AUTHOR AUTHOR'S ORGANIZ ATION 10/07/2023 [facility] DATE CREATED AUTHOR AUTHOR'S ORGANIZ ATION 11/12/2023 [facility] DATE CREATED AUTHOR AUTHOR'S ORGANIZ ATION 11/24/2023 [facility] Care Teams (unrecognized sec tion and content) [...] Kyle Call II, MD Attending Provider Active Wire Fence Erector Relationship Specialty Start Date End Date Jose Antonio Garza MD [address] [id number] PCP - General 09/04/20 Team Status: Inactive Member Role Status Dates Jose Antonio Garza MD Primary Care Provider Active Stef Molina Jr, MD Emergency Provider Active Wire Fence Erector Relationship Specialty Start Date End Date Jose Antonio Garza MD [address] [place] [address] PCP - General 09/04/20 Goals (unrecognized section [...] clearance Procedures ECG 12 Lead Amanuel Valladares, TRANSFORMER ASSEMBLY SUPERVISOR-LOAN DOCUMENTATION SPECIALIST [address] [facility] [address], [address] [address] Referral ID Status Reason Start Date Expiration Date V isits Requested Visits Authorized [id number] Authorized 11/10/2023 11/09/2024 1 1 FOR RECORDS [...] BE BASED ON THE PRIMARY CLINICAL RECORDS. [facility]. provides no warranty or guarantee of the accuracy or completeness of information in this document.
[2023-12-30] MEDS: HYDROCODONE/ACET 5-325 MG TABLET 1 TAB PO (08:16)
[2023-12-30] MEDS: ONDANSETRON 4 MG RAPDIS TABLET SL (08:20)
[2023-12-30 09:11] LABS: Basophils Absolute Auto 0.1 10^3/uL (0.0-0.1); Basophils Percent Auto 0.4 % (0.2-2.0); Eosinophils Percent Auto 0.1 % (0.9-7.0); Hematocrit 32.7 % (36.0-48.0); Hemoglobin 10.8 g/dL (12.0-16.0); Immature Granulocytes Abs Auto 0.13 10^3/uL (0.00-0.03); Immature Granulocytes Pct Auto 0.7 % (0.0-0.5); Lymphocytes Absolute Auto 1.1 10^3/uL (1.2-3.8); Lymphocytes Percent Auto 5.9 % (20.5-60.0); Mean Corpuscular Hemoglobin 30.3 pg (26.7-34.0); Mean Corpuscular Volume 91.6 fL (81.0-99.0); Mean Platelet Volume 10.2 fL (9.5-13.5); Monocytes Absolute Auto 1.8 10^3/uL (0.3-0.8); Monocytes Percent Auto 10.2 % (1.7-12.0); Neutrophils Percent Auto 82.7 % (43.0-75.0); Platelet Count 232 10^3/uL (150-450); Red Blood Count 3.57 10^6/uL (4.20-5.40); Red Cell Distribution Width 12.9 % (11.0-15.0); White Blood Count 18.1 10^3/uL (4.0-11.0)
[2023-12-30 09:13] LABS: Anion Gap 15.2; BUN Creatinine Ratio 17.6; Calcium 8.8 mg/dL (8.5-10.1); Chloride 96 mmol/L (98-107); Estimated GFR (African America 57 (>=60); Estimated GFR (Non-African Ame 47 (>=60); Glucose 131 mg/dL (74-106); Potassium 3.2 mmol/L (3.5-5.1); Sodium 135 mmol/L (136-145)
[2023-12-30] MEDS: CEFAZOLIN SODIUM/DEXTROSE,ISO 1 GM/50 ML IV.SOLN IV ×2 (10:21→17:00)
[2023-12-30 10:22] LABS: Lactate/Lactic Acid 2.1 mmol/L (0.4-2.0)
[2023-12-30 10:31] LABS: PROCALCITONIN 2.15 ng/mL (0.00-0.50)
--- OUTSIDE RECORDS SUMMARY | 2023-12-30 11:07 | XMS_ITS | CCD ---
Author Organization [facility] Care Team Providers Care Metal Fitter Name Role Phone PHYSICIAN, DEFAULT Unavailable Unavailable PHYSICIAN, DEFAULT Unavailable Unavailable CEASAR CUNHA Attending Unavailab JOSE ANTONIO Romero Referring Unavailable CEASAR CUNHA Attending Unavailab JOSE ANTONIO Romero Referring Unavailable UNKNOWN, PROVIDER Attending Unavailable UNKNOWN, PROVIDER Primary Care Unavailable Jose Antonio Garza Unavailable Unavailable Unavailable MD Jose Antonio Garza Primary Care Provider MD Kyle Calderon Attending Provider [phone] Jose Antonio Garza Primary Care Physician MD Jose Antonio Garza Primary Care Provider MATTHEW Bridges Emergency Provider MD Kyle Call II Attending Provider Kyle Call II Unavailable [phone] MD Jose Antonio Garza Primary Care Provider MATTHEW Bridges Emergency Provider [phone] MD Kyle Call II Attending Provider MD Jose Antonio Garza Primary Care Provider MD Kyle Call II Attending Provider MD Kyle Calderon Attending Provider [phone] DR JOSE ANTONIO SHINE Attending Unavailable KAI [...] Unavailable HOY ., DR BRADY Admitting Unavailable HUBERT, DR UNA Mims Consulting Unavailable Nancy Kapadia Unavailable Maxi Glez Unavailable MD Jose Antonio Garza Primary Care Provider MD Jose Antonio Garza Primary Care Provider MD Kyle Calderon Attending Provider [phone] Jose Antonio Garza MD Primary Care Provider MD Jose Antonio Garza Primary Care Provider [phone] MD Kyle Calderon Attending Provider MD Stef [...] Translations: [SULFAMETHOXAZOLE-TR IMETHOPRIM] Drug Allergy 7 [facility] Repository (20 sources) Etanercept; Translations: [etanercept] Drug Allergy 1 Unknown (qualifier value), Unknown [facility] (20 sources) Methotrexate; Translations: [methotrexate] Drug Allergy 1 Unknown [facility] (20 sources) Sulfamethoxazole / Trimethoprim; Translations: [Bactrim DS TABS] Drug Allergy [facility] (10 sources) Sulfamethoxazole; Translations: [sulfamethoxazole] Drug Allergy 7 [facility] (10 sources) Trimethoprim; Translations: [trimethoprim] Drug Allergy 7 [facility] (2 sources) Etanercept; Translations: [Enbrel] Drug Allergy 1 [facility] Repository (1 source) Methotrexate Drug Allergy 1 [facility] Repository (3 sources) Sulfamethoxazole / Trimethoprim; Translations: [Bactrim] Drug Allergy 4 [facility] Repository (1 source) Etanercept Drug Allergy 3 [facility] Repository (1 source) Methotrexate Drug Allergy 3 [facility] Repository Medications Current Medications Medication Drug [...] day(s), # 20 tab(s), Refills(s) 0, Pharmacy: [facility] 1986, 155, cm, 02/24/23 12:00:00 EDT, [...] Daily, # 30 tab(s), Refills(s) 0, Pharmacy: [facility] 1985 Start Date: 12/07/16 Status: [...] pain, # 20 tab(s), Refills(s) 0, Pharmacy: [facility], 152.4, cm, 05/21/21 7:42:00 EDT, [...] As Directed, 6tab/day x7days,5tab/day x7days,4tab/day x7day,3tab/day x7day,2tab/day x7day,1tab/[id number], # 119 tab(s), Refills(s) 0, Pharmacy: [facility] 1985 Start Date: 12/07/16 Status: Ordered take 1 tablet by neida th every twenty-four hours predniSONE 20 MG 1 tablet Orally Once a day Active Rituxan (2 sources) ZH61-tdirldie Cytolytic Antibody Start: 05-19-2022 Rituxan Refills(s) 0 [...] days, # 30 cap(s), Refills(s) 0, Pharmacy: [facility] 1985, 155, cm, 02/24/23 12:00:00 EDT, [...] 05-10-2022 Episodic Other aftercare (1 source) Other senior care (current) drug therapy; Translations: [Other senior care (current) drug therapy] Onset: 09-27-2023 Episodic Other [...] week; will D/C at her request. Normal [facility] Nonvisit Note - PTon 024 Nonvisit Note - PT Cxl per patient. No message. Conf 11/14 Normal [facility] PT - Assessmentson PT - Assessments [id number]# 1.00TIFF Normal [facility] PT - Consentson 11-01-2023 PT - Consents [id number]# 1.00TIFF Normal [facility] PT - Home Exercise Programon 11-01-2023 PT - Home Exercise Program [id number]# 1.00TIFF Normal [facility] Consent for Treatmenton 10-16 Consent for Treatment [id number]#1 .00TIFF Normal [facility] PT - Orderson 10-28-2023 PT - Orders [id number]#1 .00TIFF Normal [facility] Complete Blood Count Auto Di ffon 09-27-2023 Basophils (Bld) [#/Vol] 0.1 10*3/uL Normal 0.0-0.2 [facility] Comment on above: Performed By: #### E SR, CBC, HEPATIC, CREAT #### [address] Basophils/100 WBC (Bld) 0.9 % Normal . [facility] Comment on above: Performed By: #### E SR, CBC, HEPATIC, CREAT #### [address] Eosinophils (Bld) [#/Vol] 0.1 10*3/uL Normal 0.0-0.45 [facility] Comment on above: Performed By: #### E SR, CBC, HEPATIC, CREAT #### [address] Eosinophils/100 WBC (Bld) 1.5 % Normal . [facility] Comment on above: Performed By: #### E SR, CBC, HEPATIC, CREAT #### [address] Erythrocyte distribution width (RBC) [Ratio] 13.6 % Normal 11.9-15.3 [facility] Comment on above: Performed By: #### E SR, CBC, HEPATIC, CREAT #### [address] Hematocrit (Bld) [Volume fraction] 37.3 % Normal 34.0-46.4 [facility] Comment on above: Performed By: #### E SR, CBC, HEPATIC, CREAT #### [address] Hemoglobin (Bld) [Mass/Vol] 12.5 g/dL Normal 11.8-15.4 [facility] Comment on above: Performed By: #### E SR, CBC, HEPATIC, CREAT #### [address] Lymphocytes (Bld) [#/Vol] 2.0 10*3/uL Normal 1.00-4.8 [facility] Comment on above: Performed By: #### E SR, CBC, HEPATIC, CREAT #### [address] Lymphocytes/100 WBC (Bld) 22.4 % Normal . [facility] Comment on above: Performed By: #### E SR, CBC, HEPATIC, CREAT #### [facility] [address] MCH (RBC) [Entitic mass] 30.9 pg Normal 24.7-34.3 [facility] Comment on above: Performed By: #### E SR, CBC, HEPATIC, CREAT #### [address] MCV (RBC) [Entitic vol] 92.4 fL Normal 80-100 [facility] Comment on above: Performed By: #### E SR, CBC, HEPATIC, CREAT #### [address] Mean Corpuscular HGB Conc 33.4 g/dL Normal 32.0-35.0 [facility] Comment on above: Performed By: #### E SR, CBC, HEPATIC, CREAT #### [address] Monocytes (Bld) [#/Vol] 0.7 10*3/uL Normal 0.0-0.8 [facility] Comment on above: Performed By: #### E SR, CBC, HEPATIC, CREAT #### [address] Monocytes/100 WBC (Bld) 7.3 % Normal . [facility] Comment on above: Performed By: #### E SR, CBC, HEPATIC, CREAT #### [address] Neutrophils (Bld) [#/Vol] 6.1 10*3/uL Normal 1.8-7.7 [facility] Comment on above: Performed By: #### E SR, CBC, HEPATIC, CREAT #### [place] [address] [place] Neutrophils/100 WBC (Bld) 67.9 % Normal . [facility] Comment on above: Performed By: #### E SR, CBC, HEPATIC, CREAT #### [address] NRBC% 0.1 /100{WBC} Normal 0-0.5 [facility] Comment on above: Performed By: #### E SR, CBC, HEPATIC, CREAT #### [address] Platelet mean volume (Bld) [Entitic vol] 8.8 fL Normal 6.3-10.7 [facility] Comment on above: Performed By: #### E SR, CBC, HEPATIC, CREAT #### [address] Platelets (Bld) [#/Vol] 212 10*3/uL Normal 150-450 [facility] Comment on above: Performed By: #### E SR, CBC, HEPATIC, CREAT #### [address] RBC (Bld) [#/Vol] 4.03 10*6/uL Normal 3.60-5.00 [facility] Comment on above: Performed By: #### E SR, CBC, HEPATIC, CREAT #### [address] WBC (Bld) [#/Vol] 8.9 10*3/uL Normal 3.8-11.6 [facility] Comment on above: Performed By: #### E SR, CBC, HEPATIC, CREAT #### [address] Creatinineon 09-27-2023 Creatinine [Mass/Vol] 0.88 mg/dL Normal 0.60-1.20 [facility] Comment on above: Performed By: #### E SR, CBC, HEPATIC, CREAT #### [address] GFR/1.73 sq M.predicted MDRD (S/P/Bld) [Vol rate/Area] mL/min/{1.73_m2} Normal [facility] Comment on above: Result Comment: PERF ORMED BY: [place] [address] PATHOLOGIST SOURCING ANALYST TAMERA DAO M.D. Performed By: #### E SR, CBC, HEPATIC, CREAT #### [facility] [address] Erythrocyte Sedimentation Ra moon 09-27-2023 ESR (Bld) [Velocity] 27 mm/h Normal 0-[address] [facility] Comment on above: Result Comment: PERF ORMED BY: [place] [address] PATHOLOGIST SOURCING ANALYST TAMERA DAO M.D. Performed By: #### E SR, CBC, HEPATIC, CREAT #### [facility] [address] Hepatic Panelon 09-27-2023 Albumin [Mass/Vol] 4.1 g/dL Normal 3.5-5.7 [facility] Comment on above: Performed By: #### E SR, CBC, HEPATIC, CREAT #### [facility] [address] [place] [address] Albumin/Globulin [Mass ratio] 1.9 {ratio} Normal [facility] Comment on above: Performed By: #### E SR, CBC, HEPATIC, CREAT #### [facility] [address] [place] [address] ALP [Catalytic activity/Vol] 107 U/L High 34-104 [facility] Comment on above: Performed By: #### E SR, CBC, HEPATIC, CREAT #### [facility] [address] [place] [address] ALT [Catalytic activity/Vol] 72 U/L High 7-52 [facility] Comment on above: Performed By: #### E SR, CBC, HEPATIC, CREAT #### [facility] [address] [place] [address] [place] AST [Catalytic activity/Vol] 81 U/L High 13-39 [facility] Comment on above: Performed By: #### E SR, CBC, HEPATIC, CREAT #### [facility] [address] [place] [address] Bilirubin [Mass/Vol] 0.6 mg/dL Normal 0.3-1.[address] [facility] Comment on above: Performed By: #### E SR, CBC, HEPATIC, CREAT #### [facility] [address] Bilirubin,Indirect 0.5 mg/dL Normal [facility] Comment on above: Performed By: #### E SR, CBC, HEPATIC, CREAT #### [facility] [address] Bilirubin.indirect [Mass/Vol] 0.10 mg/dL Normal 0.03-0.18 [facility] Comment on above: Performed By: #### E SR, CBC, HEPATIC, CREAT #### [facility] [address] Globulin (S) [Mass/Vol] 2.2 g/dL Normal [facility] Comment on above: Performed By: #### E SR, CBC, HEPATIC, CREAT #### [facility] [address] Protein [Mass/Vol] 6.3 g/dL Low 6.4-8.9 [facility] Comment on above: Performed By: #### E SR, CBC, HEPATIC, CREAT #### [facility] [address] COVID-19 / Flu A/B / RSV [...] or Cepheid Disclaimer revoked sooner. PERFORMED BY: [place] [address] PATHOLOGIST SOURCING ANALYST TAMERA DAO M.D. Normal [facility] Comment on above: Performed By: #### E SR, CBC, HEPATIC, CREAT #### [address] Cepheid COVID PCR Positiveon 06-01-2023 SARS-CoV-2 (COVID-19) RNA NANCY+probe Ql (Unsp spec) Positive Critically abnormal Negative [facility] Comment on above: Result Comment: This is a duplicate Cepheid Xpert Xpress CoV-2/Flu/RSV Plus RNA by RT-PCR result to be used for statistical tracking purpose only. PERFORMED BY: [place] [address] PATHOLOGIST SOURCING ANALYST TAMERA DAO M.D. Performed By: #### E SR, CBC, HEPATIC, CREAT #### [facility] [address] [place] [address] [place] XR chest 2V*on 06-01-2023 XR chest 2V* [facility] [address] [place] [address] [place] [address] XRay Report Signed Patient: Felicity Phillips MR#: [id number] 03 : 1965 Acct:[id number] Age/Sex: 57 / F ADM Date: 05/31/23 [...] Sally Colón M.D.06/01/2023 7:21 AM Dictation Location: [place] [address] Transcribed By: [facility] 06/01/23720 Dictated By: Sally Colón MD 06/01/23719 Signed By: 06/01/23 0721 Normal [facility] COVID CepheidOrdered By: Kory Molina on 05-31-2023 SARS-CoV-2 (COVID-19) Ab IA Ql Positive Negative [facility] Comment on above: This is a duplicate Cepheid Xpert Xpress CoV-2/Flu/RSV Plus RNA by RT-PCR result to be used for statistical tracking purpose only. SARS-CoV-2 (COVID-19) RNA NANCY+probe Ql (Unsp spec) [facility] Alanine aminotransferase [En zymatic activity/volume] in Serum or PlasmaOrdered By: Kyle Calderon on 04-28-2023 ALT [Catalytic activity/Vol] 58 U/L 7-52 [facility] Albumin [Mass/volume] in Ser um or Plasma by Bromocresol green (BCG) dye binding methoOrdered By: Kyle Calderon on 04-28-2023 Albumin BCG dye [Mass/Vol] 4.2 g/dL 3.5-5.7 [facility] Alkaline phosphatase [Enzyma tic activity/volume] in Serum or PlasmaOrdered By: Kyle Calderon on 04-28-2023 ALP [Catalytic activity/Vol] 102 U/L 34-104 [facility] Aspartate aminotransferase [ Enzymatic activity/volume] in Serum or PlasmaOrdered By: Kyle Calderon on 04-28-2023 AST [Catalytic activity/Vol] 53 U/L 13-39 [facility] Basophils Auto (Bld) [#/Vol] Ordered By: Kyle Calderon on 04-28-2023 Basophils (Bld) [#/Vol] 0.1 10*3/uL 0.0-0.2 [facility] Basophils/100 WBC Auto (Bld) Ordered By: Kyle Calderon on 04-28-2023 Basophils/100 WBC (Bld) 1.3 % . [facility] Bilirubin.direct [Mass/volum e] in Serum or PlasmaOrdered By: Kyle Calderon on 04-28-2023 Bilirubin.direct [Mass/Vol] 0.10 mg/dL 0.03-0.18 [facility] Bilirubin.total [Mass/volume ] in Serum or PlasmaOrdered By: Kyle Calderon on 04-28-2023 Bilirubin [Mass/Vol] 0.8 mg/dL 0.3-1.[address] [facility] Complete Blood Count Auto Di ffon 04-28-2023 Basophils (Bld) [#/Vol] 0.1 10*3/uL Normal 0.0-0.2 [facility] Comment on above: Performed By: #### E SR, CBC, HEPATIC, CREAT #### [facility] [address] [place] [id number] [facility] Basophils/100 WBC (Bld) 1.3 % Normal . [facility] Comment on above: Performed By: #### E SR, CBC, HEPATIC, CREAT #### [facility] [address] [place] [address] Eosinophils (Bld) [#/Vol] 0.2 10*3/uL Normal 0.0-0.45 [facility] Comment on above: Performed By: #### E SR, CBC, HEPATIC, CREAT #### [address] Eosinophils/100 WBC (Bld) 3.2 % Normal . [facility] Comment on above: Performed By: #### E SR, CBC, HEPATIC, CREAT #### [address] Erythrocyte distribution width (RBC) [Ratio] 13.5 % Normal 11.9-15.3 [facility] Comment on above: Performed By: #### E SR, CBC, HEPATIC, CREAT #### [address] Hematocrit (Bld) [Volume fraction] 36.5 % Normal 34.0-46.4 [facility] Comment on above: Performed By: #### E SR, CBC, HEPATIC, CREAT #### [address] Hemoglobin (Bld) [Mass/Vol] 12.3 g/dL Normal 11.8-15.4 [facility] Comment on above: Performed By: #### E SR, CBC, HEPATIC, CREAT #### [address] Lymphocytes (Bld) [#/Vol] 1.5 10*3/uL Normal 1.00-4.8 [facility] Comment on above: Performed By: #### E SR, CBC, HEPATIC, CREAT #### [place] [address] [place] Lymphocytes/100 WBC (Bld) 20.3 % Normal . [facility] Comment on above: Performed By: #### E SR, CBC, HEPATIC, CREAT #### [address] MCH (RBC) [Entitic mass] 31.2 pg Normal 24.7-34.3 [facility] Comment on above: Performed By: #### E SR, CBC, HEPATIC, CREAT #### [facility] [address] [place] [address] MCV (RBC) [Entitic vol] 92.2 fL Normal 80-100 [facility] Comment on above: Performed By: #### E SR, CBC, HEPATIC, CREAT #### [address] Mean Corpuscular HGB Conc 33.8 g/dL Normal 32.0-35.0 [facility] Comment on above: Performed By: #### E SR, CBC, HEPATIC, CREAT #### [address] Monocytes (Bld) [#/Vol] 0.6 10*3/uL Normal 0.0-0.8 [facility] Comment on above: Performed By: #### E SR, CBC, HEPATIC, CREAT #### [address] Monocytes/100 WBC (Bld) 9.0 % Normal . [facility] Comment on above: Performed By: #### E SR, CBC, HEPATIC, CREAT #### [address] Neutrophils (Bld) [#/Vol] 4.8 10*3/uL Normal 1.8-7.7 [facility] Comment on above: Performed By: #### E SR, CBC, HEPATIC, CREAT #### [address] Neutrophils/100 WBC (Bld) 66.2 % Normal . [facility] Comment on above: Performed By: #### E SR, CBC, HEPATIC, CREAT #### [address] NRBC% 0.1 /100{WBC} Normal 0-0.5 [facility] Comment on above: Performed By: #### E SR, CBC, HEPATIC, CREAT #### [address] Platelet mean volume (Bld) [Entitic vol] 8.7 fL Normal 6.3-10.7 [facility] Comment on above: Performed By: #### E SR, CBC, HEPATIC, CREAT #### [facility] [address] Platelets (Bld) [#/Vol] 202 10*3/uL Normal 150-450 [facility] Comment on above: Performed By: #### E SR, CBC, HEPATIC, CREAT #### [address] RBC (Bld) [#/Vol] 3.96 10*6/uL Normal 3.60-5.00 [facility] Comment on above: Performed By: #### E SR, CBC, HEPATIC, CREAT #### [address] WBC (Bld) [#/Vol] 7.2 10*3/uL Normal 3.8-11.6 [facility] Comment on above: Performed By: #### E SR, CBC, HEPATIC, CREAT #### [address] Creatinineon 04-28-2023 Creatinine [Mass/Vol] 0.70 mg/dL Normal 0.60-1.20 [facility] Comment on above: Performed By: #### E SR, CBC, HEPATIC, CREAT #### [address] GFR/1.73 sq M.predicted MDRD (S/P/Bld) [Vol rate/Area] mL/min/{1.73_m2} Normal [facility] Comment on above: Result Comment: PERF ORMED BY: [place] [address] PATHOLOGIST SOURCING ANALYST TAMREA DAO M.D. Performed By: #### E SR, CBC, HEPATIC, CREAT #### [address] Creatinine [Mass/volume] in Serum or PlasmaOrdered By: Kyle Calderon on 04-28-2023 Creatinine [Mass/Vol] 0.70 mg/dL 0.60-1.20 [facility] Eosinophils Auto (Bld) [#/Vo l]Ordered By: Kyle Calderon on 04-28-2023 Eosinophils (Bld) [#/Vol] 0.2 10*3/uL 0.0-0.45 [facility] Eosinophils/100 WBC Auto (Bl d)Ordered By: Kyle Calderon on 04-28-2023 Eosinophils/100 WBC (Bld) 3.2 % . [facility] Erythrocyte Sedimentation Ra moon 04-28-2023 ESR (Bld) [Velocity] 24 mm/h Normal 0-[address] [facility] Comment on above: Result Comment: PERF ORMED BY: [place] [address] PATHOLOGIST SOURCING ANALYST TAMERA DAO M.D. Performed By: #### E SR, CBC, HEPATIC, CREAT #### [address] Erythrocyte distribution wid th Auto (RBC) [Ratio]Ordered By: Kyle Calderon on 04-28-2023 Erythrocyte distribution width (RBC) [Ratio] 13.5 % 11.9-15.3 [facility] Erythrocyte sedimentation ra te by Photometric methodOrdered By: Kyle Calderon on 04-28-2023 ESR Photometric method (Bld) [Velocity] 24 mm/hr 0-29 [facility] Globulin Calc (S) [Mass/Vol] Ordered By: Kyle Calderon on 04-28-2023 Globulin (S) [Mass/Vol] 1.9 g/dL [facility] Hematocrit Auto (Bld) [Volum e fraction]Ordered By: Kyle Calderon on 04-28-2023 Hematocrit (Bld) [Volume fraction] 36.5 % 34.0-46.4 [facility] Hemoglobin [Mass/volume] in BloodOrdered By: Kyle Calderon on 04-28-2023 Hemoglobin (Bld) [Mass/Vol] 12.3 g/dL 11.8-15.4 [facility] Hepatic Panelon 04-28-2023 Albumin [Mass/Vol] 4.2 g/dL Normal 3.5-5.7 [facility] Comment on above: Performed By: #### E SR, CBC, HEPATIC, CREAT #### [facility] [address] Albumin/Globulin [Mass ratio] 2.2 {ratio} Normal [facility] Comment on above: Performed By: #### E SR, CBC, HEPATIC, CREAT #### [facility] [address] ALP [Catalytic activity/Vol] 102 U/L Normal 34-104 [facility] Comment on above: Performed By: #### E SR, CBC, HEPATIC, CREAT #### [facility] [address] ALT [Catalytic activity/Vol] 58 U/L High 7-52 [facility] Comment on above: Performed By: #### E SR, CBC, HEPATIC, CREAT #### [facility] [address] AST [Catalytic activity/Vol] 53 U/L High 13-39 [facility] Comment on above: Performed By: #### E SR, CBC, HEPATIC, CREAT #### [facility] [address] [place] [address] [place] Bilirubin [Mass/Vol] 0.8 mg/dL Normal 0.3-1.[address] [facility] Comment on above: Performed By: #### E SR, CBC, HEPATIC, CREAT #### [facility] [address] [place] [address] [place] Bilirubin,Indirect 0.7 mg/dL Normal [facility] Comment on above: Performed By: #### E SR, CBC, HEPATIC, CREAT #### [facility] [address] [place] [address] [place] Bilirubin.indirect [Mass/Vol] 0.10 mg/dL Normal 0.03-0.18 [facility] Comment on above: Performed By: #### E SR, CBC, HEPATIC, CREAT #### [facility] [address] Globulin (S) [Mass/Vol] 1.9 g/dL Normal [facility] Comment on above: Performed By: #### E SR, CBC, HEPATIC, CREAT #### [facility] [address] Protein [Mass/Vol] 6.1 g/dL Low 6.4-8.9 [facility] Comment on above: Performed By: #### E SR, CBC, HEPATIC, CREAT #### [facility] [address] Leukocytes [#/volume] correc edd for nucleated erythrocytes in Blood by Automated counOrdered By: Kyle Calderon on 04-28-2023 WBC corrected for nucl RBC Auto (Bld) [#/Vol] 7.2 10*3/uL 3.8-11.6 [facility] Lymphocytes Auto (Bld) [#/Vo l]Ordered By: Kyle Calderon on 04-28-2023 Lymphocytes (Bld) [#/Vol] 1.5 10*3/uL 1.00-4.8 [facility] Lymphocytes/100 WBC Auto (Bl d)Ordered By: Kyle Calderon on 04-28-2023 Lymphocytes/100 WBC (Bld) 20.3 % . [facility] MCH Auto (RBC) [Entitic mass ]Ordered By: Kyle Calderon on 04-28-2023 MCH (RBC) [Entitic mass] 31.2 pg 24.7-34.3 [facility] MCHC Auto (RBC) [Mass/Vol]Or dered By: Kyle Calderon on 04-28-2023 MCHC (RBC) [Mass/Vol] 33.8 g/dL 32.0-35.0 [facility] MCV Auto (RBC) [Entitic vol] Ordered By: Kyle Calderon on 04-28-2023 MCV (RBC) [Entitic vol] 92.2 fL 80-100 [facility] Monocytes Auto (Bld) [#/Vol] Ordered By: Kyle Calderon on 04-28-2023 Monocytes (Bld) [#/Vol] 0.6 10*3/uL 0.0-0.8 [facility] Monocytes/100 WBC Auto (Bld) Ordered By: Kyle Calderon on 04-28-2023 Monocytes/100 WBC (Bld) 9.0 % . [facility] Neutrophils Auto (Bld) [#/Vo l]Ordered By: Kyle Calderon on 04-28-2023 Neutrophils (Bld) [#/Vol] 4.8 10*3/uL 1.8-7.7 [facility] Neutrophils/100 WBC Auto (Bl d)Ordered By: Kyle Calderon on 04-28-2023 Neutrophils/100 WBC (Bld) 66.2 % . [facility] No Panel InformationOrdered By: Kyle Calderon on 04-28-2023 Estimated GFR (CKD-EPI) > 60.0 mL/Min [facility] Creatinine Clearance (Chem N/A [facility] Nucleated erythrocytes [Pres ence] in Blood by Automated countOrdered By: Kyle Calderon on 04-28-2023 Nucleated RBC Auto Ql (Bld) 0.1 /100{WBC} 0-0.5 [facility] Platelet mean volume Auto (B ld) [Entitic vol]Ordered By: Kyle Calderon on 04-28-2023 Platelet mean volume (Bld) [Entitic vol] 8.7 fL 6.3-10.7 [facility] Platelets Auto (Bld) [#/Vol] Ordered By: Kyle Calderon on 04-28-2023 Platelets (Bld) [#/Vol] 202 10*3/uL 150-450 [facility] Protein [Mass/volume] in Ser um or PlasmaOrdered By: Kyle Calderon on 04-28-2023 Protein [Mass/Vol] 6.1 g/dL 6.4-8.9 [facility] RBC Auto (Bld) [#/Vol]Ordere d By: Kyle Calderon on 04-28-2023 RBC (Bld) [#/Vol] 3.96 10*6/uL 3.60-5.00 [facility] Serum or plasma albumin/glob ulin mass ratioOrdered By: Kyle Calderon on 04-28-2023 Albumin/Globulin [Mass ratio] 2.2 {ratio} [facility] Serum or plasma non-glucuron idated bilirubin measurement (mass/volume)Ordered By: Kyle Calderon on 04-28-2023 Bilirubin.indirect [Mass/Vol] 0.7 mg/dL [facility] WBC Auto (Bld) [#/Vol]Ordere d By: Kyle Calderon on 04-28-2023 WBC (Bld) [#/Vol] 7.2 10*3/uL 3.8-11.6 [facility] Consent for Treatmenton 02-15 Consent for Treatment [id number]:127 Normal [facility] Discharge Instructionson Discharge Instructions [id number]:127 Normal [facility] ED Clinical Summaryon 2022 ED Clinical Summary [place] [id number] ED Clinical Summary Person Information Name: FELICITY PHILLIPS [facility] Age: 57 Years : 1965 Sex: Female Language: Pakistani PCP: Jose Antonio Garza MD Marital Status: [...] 02/24/2023 13:18:12 02/24/2023 13:18:12 02/24/2023 13:18:12 ADDRESS: [address] [place] [id number] PHYS DOC NOTES: MEDICAL INFORMATION: Prescriptions Given: New Medications [facility], [address] [facility] [address] [place], [place] [id number], [phone] cephalexin (Keflex 500 mg Cap) 1 Capsules [...] up: With: Address: When: Jose Antonio Garza [address] [place] [address], [address] [place] [id number] Business (1) In 3 days 02/27/2023 DIAGNOSIS: Abscess; Cellulitis Normal [facility] ED Note-Physicianon 02-25-20 ED Note-Physician Basic [...] days, # 30 cap(s), Refills(s) 0, Pharmacy: [facility] 1985, 155, cm, 02/24/23 12:00:00 EDT, Height/Length Dosing, 108.2, kg, 02/24/23 12:00:00 EDT, Weight Dosing doxycycline, 100 mg = 1 tab(s), Oral, BID, X 10 day(s), # 20 tab(s), Refills(s) 0, Pharmacy: [facility] 1985, 155, cm, 02/24/23 12:00:00 EDT, [...] Garza In 3 days 02/27/2023 EDT [address] [facility] [place] [address]- Business (1) Additional Instructions: Patient Education Skin Abscess Cellulitis, Adult Attestation Patient seen and evaluated by the physician inside sales assistant. Attending physician was present in the emergency department and supervised care. This visit was performed by both the physician and an APC. I performed all aspects of the MDM as documented. This report was transcribed using voice recognition software. Every effort was made to ensure accuracy, however, inadvertently computerized manager linux mistakes may be present. Appropriate healthcare PPE [...] Keflex 5 (more content not included)... Normal [facility] Comment on above: Result Comment: Elec [...] these instructions at home: Medicines ? 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 ? Check your abscess every day for [...] care pro (more content not included)... Normal [facility] ED Patient Summaryon 023 ED Patient Summary [address] [address] Patient Discharge Instructions Person Information Name: FELICITY PHILLIPS Age: 57 Years Arrival Date: 02/24/2023 11:52:40 Discharge Diagnosis: Abscess; Cellulitis Primary Care Physician: Jose Antonio Garza MD Provider Information Primary Provider: Briana Winters M.D. Advanced Fur Farmer:Rodrick Mobley PA-C The exam and treatment you received in the Emergency Department were for an urgent problem and are not intended as complete care. It is important that you follow up with a doctor, nurse practitioner, or physician?s inside sales assistant for ongoing care. If your symptoms [...] Instructions: With: Address: When: Jose Antonio Fortejenifer [address] [place] [address], [place] [address] Business (1) In 3 days 02/27/2023 In the event that this physician does not participate in your insurance network, please consult with your insurance company to find a nearby participating provider. Patient Education Materials: Skin Abscess; Cellulitis, Adult A MESSAGE TO ALL PATIENTS REGARDING OPIOIDS PRESCRIPTION OPIOIDS: WHAT YOU NEED TO KNOW Prescription opioids can be used to help relieve epjsdafe-ca-oasukp pain and are often prescribed following a [...] be struggling with addiction, tell your health client care specialist and ask for guidance or call [facility]?S National Helpline at 2-300-307-APWU. (more content not included)... Normal [facility] Alanine aminotransferase [En zymatic activity/volume] in Serum or PlasmaOrdered By: Kyle Calderon on 01-05-2023 ALT [Catalytic activity/Vol] 41 U/L 7-52 [facility] Albumin [Mass/volume] in Ser um or Plasma by Bromocresol green (BCG) dye binding methoOrdered By: Kyle Calderon on 01-05-2023 Albumin BCG dye [Mass/Vol] 4.4 g/dL 3.5-5.7 [facility] Alkaline phosphatase [Enzyma tic activity/volume] in Serum or PlasmaOrdered By: Kyle Calderon on 01-05-2023 ALP [Catalytic activity/Vol] 93 U/L 34-104 [facility] Anisocytosis LM Ql (Bld)Orde red By: Kyle Calderon on 01-05-2023 Anisocytosis Ql (Bld) Slight [facility] Aspartate aminotransferase [ Enzymatic activity/volume] in Serum or PlasmaOrdered By: Kyle Calderon on 01-05-2023 AST [Catalytic activity/Vol] 19 U/L 13-39 [facility] Band form neutrophils/100 WB C Manual cnt (Bld)Ordered By: Kyle Calderon on 01-05-2023 Band form neutrophils/100 WBC (Bld) 1 % 0-5 [facility] Basophils Auto (Bld) [#/Vol] Ordered By: Kyle Calderon on 01-05-2023 Basophils (Bld) [#/Vol] N/A [facility] Basophils/100 WBC Auto (Bld) Ordered By: Kyle Calderon on 01-05-2023 Basophils/100 WBC (Bld) N/A [facility] Basophils/100 WBC Manual cnt (Bld)Ordered By: Kyle Calderon on 01-05-2023 Basophils/100 WBC (Bld) 0 % 0-2 [facility] Bilirubin.direct [Mass/volum e] in Serum or PlasmaOrdered By: Kyle Calderon on 01-05-2023 Bilirubin.direct [Mass/Vol] 0.10 mg/dL 0.03-0.18 [facility] Bilirubin.total [Mass/volume ] in Serum or PlasmaOrdered By: Kyle Calderon on 01-05-2023 Bilirubin [Mass/Vol] 0.6 mg/dL 0.3-1.[address] [facility] Creatinineon 01-05-2023 Creatinine [Mass/Vol] 0.85 mg/dL Normal 0.60-1.20 [facility] Comment on above: Performed By: #### E SR, CBC, HEPATIC, CREAT #### [facility] [address] [place] [address] [place] GFR/1.73 sq M.predicted MDRD (S/P/Bld) [Vol rate/Area] mL/min/{1.73_m2} Normal [facility] Comment on above: Result Comment: PERF ORMED BY: [place] [address] PATHOLOGIST SOURCING ANALYST TAMERA DAO M.D. Performed By: #### E SR, CBC, HEPATIC, CREAT #### [facility] [address] [place] [address] Creatinine [Mass/volume] in Serum or PlasmaOrdered By: Kyle Calderon on 01-05-2023 Creatinine [Mass/Vol] 0.85 mg/dL 0.60-1.20 [facility] Diff and CBCon 01-05-2023 Anisocytosis Ql (Bld) Slight Normal [facility] Comment on above: Performed By: #### E SR, CBC, HEPATIC, CREAT #### [facility] [address] [place] [address] [place] Band form neutrophils/100 WBC (Bld) 1 % Normal 0-5 [facility] Comment on above: Performed By: #### E SR, CBC, HEPATIC, CREAT #### [facility] [address] [place] [address] [place] Basophils/100 WBC (Bld) 0 % Normal 0-2 [facility] Comment on above: Performed By: #### E SR, CBC, HEPATIC, CREAT #### [address] Eosinophils/100 WBC (Bld) 4 % High 1-3 [facility] Comment on above: Performed By: #### E SR, CBC, HEPATIC, CREAT #### [address] Erythrocyte distribution width (RBC) [Ratio] 15.0 % Normal 11.9-15.3 [facility] Comment on above: Performed By: #### E SR, CBC, HEPATIC, CREAT #### [address] Hematocrit (Bld) [Volume fraction] 35.4 % Normal 34.0-46.4 [facility] Comment on above: Performed By: #### E SR, CBC, HEPATIC, CREAT #### [address] Hemoglobin (Bld) [Mass/Vol] 12.1 g/dL Normal 11.8-15.4 [facility] Comment on above: Performed By: #### E SR, CBC, HEPATIC, CREAT #### [address] Lymphocytes/100 WBC (Bld) 13 % Low 18-42 [facility] Comment on above: Performed By: #### E SR, CBC, HEPATIC, CREAT #### [address] MCH (RBC) [Entitic mass] 31.7 pg Normal 24.7-34.3 [facility] Comment on above: Performed By: #### E SR, CBC, HEPATIC, CREAT #### [address] MCV (RBC) [Entitic vol] 92.6 fL Normal 80-100 [facility] Comment on above: Performed By: #### E SR, CBC, HEPATIC, CREAT #### [address] Mean Corpuscular HGB Conc 34.2 g/dL Normal 32.0-35.0 [facility] Comment on above: Performed By: #### E SR, CBC, HEPATIC, CREAT #### [facility] [address] [place] [address] Metamyelocytes 1 % High 0-0 [facility] Comment on above: Performed By: #### E SR, CBC, HEPATIC, CREAT #### [facility] [address] [place] [address] Microcytosis Slight Normal [facility] Comment on above: Performed By: #### E SR, CBC, HEPATIC, CREAT #### [facility] [address] [place] [address] Monocytes/100 WBC (Bld) 6 % Normal 2-11 [facility] Comment on above: Performed By: #### E SR, CBC, HEPATIC, CREAT #### [facility] [address] [place] [address] Myelocytes 1 % High 0-0 [facility] Comment on above: Performed By: #### E SR, CBC, HEPATIC, CREAT #### [facility] [address] [place] [address] Platelet Estimate Normal Normal Normal [facility] Comment on above: Performed By: #### E SR, CBC, HEPATIC, CREAT #### [facility] [address] [place] [address] Platelet mean volume (Bld) [Entitic vol] 8.3 fL Normal 6.3-10.7 [facility] Comment on above: Performed By: #### E SR, CBC, HEPATIC, CREAT #### [facility] [address] [place] [address] Platelet Morphology Normal Normal Normal [facility] Comment on above: Performed By: #### E SR, CBC, HEPATIC, CREAT #### [facility] [address] [place] [address] Platelets (Bld) [#/Vol] 204 10*3/uL Normal 150-450 [facility] Comment on above: Performed By: #### E SR, CBC, HEPATIC, CREAT #### [facility] [address] Polychromasia Slight Normal [facility] Comment on above: Performed By: #### E SR, CBC, HEPATIC, CREAT #### [facility] [address] RBC (Bld) [#/Vol] 3.82 10*6/uL Normal 3.60-5.00 [facility] Comment on above: Performed By: #### E SR, CBC, HEPATIC, CREAT #### [facility] [address] [place] [address] Segmented neutrophils/100 WBC (Bld) 74 % High 50-70 [facility] Comment on above: Performed By: #### E SR, CBC, HEPATIC, CREAT #### [facility] [address] [place] [address] WBC (Bld) [#/Vol] 10.8 10*3/uL Normal 3.8-11.6 [facility] Comment on above: Performed By: #### E SR, CBC, HEPATIC, CREAT #### [facility] [address] [place] [address] Eosinophils Auto (Bld) [#/Vo l]Ordered By: Kyle Calderon on 01-05-2023 Eosinophils (Bld) [#/Vol] N/A [facility] Eosinophils/100 WBC Auto (Bl d)Ordered By: Kyle Calderon on 01-05-2023 Eosinophils/100 WBC (Bld) N/A [facility] Eosinophils/100 WBC Manual c nt (Bld)Ordered By: Kyle Calderon on 01-05-2023 Eosinophils/100 WBC (Bld) 4 % 1-3 [facility] Erythrocyte Sedimentation Ra moon 01-05-2023 ESR (Bld) [Velocity] 17 mm/h Normal 0-[address] [facility] Comment on above: Result Comment: PERF ORMED BY: [place] [address] PATHOLOGIST SOURCING ANALYST TAMERA DAO M.D. Performed By: #### E SR, CBC, HEPATIC, CREAT #### [facility] [address] [place] [address] [place] Erythrocyte distribution wid th Auto (RBC) [Ratio]Ordered By: Kyle Calderon on 01-05-2023 Erythrocyte distribution width (RBC) [Ratio] 15.0 % 11.9-15.3 [facility] Erythrocyte sedimentation ra te by Photometric methodOrdered By: Kyle Calderon on 01-05-2023 ESR Photometric method (Bld) [Velocity] 17 mm/hr 0-29 [facility] Globulin Calc (S) [Mass/Vol] Ordered By: Kyle Calderon on 01-05-2023 Globulin (S) [Mass/Vol] 2.2 g/dL [facility] Hematocrit Auto (Bld) [Volum e fraction]Ordered By: Kyle Calderon on 01-05-2023 Hematocrit (Bld) [Volume fraction] 35.4 % 34.0-46.4 [facility] Hemoglobin [Mass/volume] in BloodOrdered By: Kyle Calderon on 01-05-2023 Hemoglobin (Bld) [Mass/Vol] 12.1 g/dL 11.8-15.4 [facility] Hepatic Panelon 01-05-2023 Albumin [Mass/Vol] 4.4 g/dL Normal 3.5-5.7 [facility] Comment on above: Performed By: #### C REAT, HEPATIC, DIFF CBC, ESR #### [facility] [address] [place] [address] [place] Albumin/Globulin [Mass ratio] 2.0 {ratio} Normal [facility] Comment on above: Performed By: #### C REAT, HEPATIC, DIFF CBC, ESR #### [facility] [address] [place] [id number] [place] ALP [Catalytic activity/Vol] 93 U/L Normal 34-104 [facility] Comment on above: Performed By: #### C REAT, HEPATIC, DIFF CBC, ESR #### [facility] [address] [place] [id number] [facility] ALT [Catalytic activity/Vol] 41 U/L Normal 7-52 [facility] Comment on above: Performed By: #### C REAT, HEPATIC, DIFF CBC, ESR #### [facility] [address] AST [Catalytic activity/Vol] 19 U/L Normal 13-39 [facility] Comment on above: Performed By: #### C REAT, HEPATIC, DIFF CBC, ESR #### [facility] [address] Bilirubin [Mass/Vol] 0.6 mg/dL Normal 0.3-1.[address] [facility] Comment on above: Performed By: #### C REAT, HEPATIC, DIFF CBC, ESR #### [facility] [address] Bilirubin,Indirect 0.5 mg/dL Normal [facility] Comment on above: Performed By: #### C REAT, HEPATIC, DIFF CBC, ESR #### [facility] [address] Bilirubin.indirect [Mass/Vol] 0.10 mg/dL Normal 0.03-0.18 [facility] Comment on above: Performed By: #### C REAT, HEPATIC, DIFF CBC, ESR #### [facility] [address] Globulin (S) [Mass/Vol] 2.2 g/dL Normal [facility] Comment on above: Performed By: #### C REAT, HEPATIC, DIFF CBC, ESR #### [facility] [address] Protein [Mass/Vol] 6.6 g/dL Normal 6.4-8.9 [facility] Comment on above: Performed By: #### C REAT, HEPATIC, DIFF CBC, ESR #### [facility] [address] Leukocytes [#/volume] correc edd for nucleated erythrocytes in Blood by Automated counOrdered By: Kyle Calderon on 01-05-2023 WBC corrected for nucl RBC Auto (Bld) [#/Vol] 10.8 10*3/uL 3.8-11.6 [facility] Lymphocytes Auto (Bld) [#/Vo l]Ordered By: Kyle Calderon on 01-05-2023 Lymphocytes (Bld) [#/Vol] N/A [facility] Lymphocytes/100 WBC Auto (Bl d)Ordered By: Kyle Calderon on 01-05-2023 Lymphocytes/100 WBC (Bld) N/A [facility] Lymphocytes/100 WBC Manual c nt (Bld)Ordered By: Kyle Calderon on 01-05-2023 Lymphocytes/100 WBC (Bld) 13 % 18-42 [facility] MCH Auto (RBC) [Entitic mass ]Ordered By: yKle Calderon on 01-05-2023 MCH (RBC) [Entitic mass] 31.7 pg 24.7-34.3 [facility] MCHC Auto (RBC) [Mass/Vol]Or dered By: Kyle Calderon on 01-05-2023 MCHC (RBC) [Mass/Vol] 34.2 g/dL 32.0-35.0 [facility] MCV Auto (RBC) [Entitic vol] Ordered By: Kyle Calderon on 01-05-2023 MCV (RBC) [Entitic vol] 92.6 fL 80-100 [facility] Metamyelocytes/100 WBC Manua l cnt (Bld)Ordered By: Kyle Calderon on 01-05-2023 Metamyelocytes/100 WBC (Bld) 1 % 0-0 [facility] Microcytes LM Ql (Bld)Ordere d By: Kyle Calderon on 01-05-2023 Microcytes Ql (Bld) Slight [facility] Monocytes Auto (Bld) [#/Vol] Ordered By: Kyle Calderon on 01-05-2023 Monocytes (Bld) [#/Vol] N/A [facility] Monocytes/100 WBC Auto (Bld) Ordered By: Kyle Calderon on 01-05-2023 Monocytes/100 WBC (Bld) N/A [facility] Monocytes/100 WBC Manual cnt (Bld)Ordered By: Kyle Calderon on 01-05-2023 Monocytes/100 WBC (Bld) 6 % 2-11 [facility] Myelocytes/100 WBC Manual cn t (Bld)Ordered By: Kyle Calderon on 01-05-2023 Myelocytes/100 WBC (Bld) 1 % 0-0 [facility] Neutrophils Auto (Bld) [#/Vo l]Ordered By: Kyle Calderon on 01-05-2023 Neutrophils (Bld) [#/Vol] N/A [facility] Neutrophils/100 WBC Auto (Bl d)Ordered By: Kyle Calderon on 01-05-2023 Neutrophils/100 WBC (Bld) N/A [facility] No Panel InformationOrdered By: Kyle Calderon on 01-05-2023 Estimated GFR (CKD-EPI) > 60.0 mL/Min [facility] Creatinine Clearance (Chem N/A [facility] Nucleated erythrocytes [Pres ence] in Blood by Automated countOrdered By: Kyle Calderon on 01-05-2023 Nucleated RBC Auto Ql (Bld) N/A [facility] Platelet adequacy [Presence] in Blood by Light microscopyOrdered By: Kyle Calderon on 01-05-2023 Platelets LM Ql (Bld) Normal Normal Fir [facility] Platelet mean volume Auto (B ld) [Entitic vol]Ordered By: Kyle Calderon on 01-05-2023 Platelet mean volume (Bld) [Entitic vol] 8.3 fL 6.3-10.7 [facility] Platelet morphology finding [Identifier] in BloodOrdered By: Kyle Calderon on 01-05-2023 Platelet morphology finding Nom (Bld) Normal Normal [facility] Platelets Auto (Bld) [#/Vol] Ordered By: Kyle Calderon on 01-05-2023 Platelets (Bld) [#/Vol] 204 10*3/uL 150-450 [facility] Polychromasia [Presence] in Blood by Light microscopyOrdered By: Kyle Calderon on 01-05-2023 Polychromasia LM Ql (Bld) Slight [facility] Protein [Mass/volume] in Ser um or PlasmaOrdered By: Kyle Calderon on 01-05-2023 Protein [Mass/Vol] 6.6 g/dL 6.4-8.9 [facility] RBC Auto (Bld) [#/Vol]Ordere d By: Kyle Calderon on 01-05-2023 RBC (Bld) [#/Vol] 3.82 10*6/uL 3.60-5.00 [facility] RBC morphologyOrdered By: Jazmin Calderon on 01-05-2023 RBC morphology finding Nom (Bld) N/A [facility] Segmented neutrophils/100 WB C Manual cnt (Bld)Ordered By: Kyle Calderon on 01-05-2023 Segmented neutrophils/100 WBC (Bld) 74 % 50-70 [facility] Serum or plasma albumin/glob ulin mass ratioOrdered By: Kyle Calderon on 01-05-2023 Albumin/Globulin [Mass ratio] 2.0 {ratio} [facility] Serum or plasma non-glucuron idated bilirubin measurement (mass/volume)Ordered By: Kyle Calderon on 01-05-2023 Bilirubin.indirect [Mass/Vol] 0.5 mg/dL [facility] WBC Auto (Bld) [#/Vol]Ordere d By: Kyle Calderon on 01-05-2023 WBC (Bld) [#/Vol] 10.8 10*3/uL 3.8-11.6 [facility] CT LSPINE WO CONon 3 [...] by: UNA ELMORE Date: 2022-11-13 09:34 Normal [facility] CT PELVIS WO CONon 3 [...] by: UNA ELMORE Date: 2022-11-13 09:29 Normal [facility] Alanine aminotransferase [En zymatic activity/volume] in Serum or PlasmaOrdered By: Kyle Calderon on 11-03-2022 ALT [Catalytic activity/Vol] 41 U/L 7-52 [facility] Albumin [Mass/volume] in Ser um or Plasma by Bromocresol green (BCG) dye binding methoOrdered By: Kyle Calderon on 11-03-2022 Albumin BCG dye [Mass/Vol] 4.0 g/dL 3.5-5.7 [facility] Alkaline phosphatase [Enzyma tic activity/volume] in Serum or PlasmaOrdered By: Kyle Calderon on 11-03-2022 ALP [Catalytic activity/Vol] 95 U/L 34-104 [facility] Aspartate aminotransferase [ Enzymatic activity/volume] in Serum or PlasmaOrdered By: Kyle Calderon on 11-03-2022 AST [Catalytic activity/Vol] 17 U/L 13-39 [facility] Basophils Auto (Bld) [#/Vol] Ordered By: Kyle Calderon on 11-03-2022 Basophils (Bld) [#/Vol] 0.1 10*3/uL 0.0-0.2 [facility] Basophils/100 WBC Auto (Bld) Ordered By: Kyle Calderon on 11-03-2022 Basophils/100 WBC (Bld) 0.9 % . [facility] Bilirubin.direct [Mass/volum e] in Serum or PlasmaOrdered By: Kyle Calderon on 11-03-2022 Bilirubin.direct [Mass/Vol] 0.10 mg/dL 0.03-0.18 [facility] Bilirubin.total [Mass/volume ] in Serum or PlasmaOrdered By: Kyle Calderon on 11-03-2022 Bilirubin [Mass/Vol] 0.7 mg/dL 0.3-1.[address] [facility] Complete Blood Count Auto Di ffon 11-03-2022 Basophils (Bld) [#/Vol] 0.1 10*3/uL Normal 0.0-0.2 [facility] Comment on above: Performed By: #### H EPATIC, CREAT, CBC, ESR #### [facility] [address] [place] [id number] [place] Basophils/100 WBC (Bld) 0.9 % Normal . [facility] Comment on above: Performed By: #### H EPATIC, CREAT, CBC, ESR #### [facility] [address] [place] [address] [place] Eosinophils (Bld) [#/Vol] 0.2 10*3/uL Normal 0.0-0.45 [facility] Comment on above: Performed By: #### H EPATIC, CREAT, CBC, ESR #### [facility] [address] [place] [id number] [place] Eosinophils/100 WBC (Bld) 1.4 % Normal . [facility] Comment on above: Performed By: #### H EPATIC, CREAT, CBC, ESR #### [address] Erythrocyte distribution width (RBC) [Ratio] 14.6 % Normal 11.9-15.3 [facility] Comment on above: Performed By: #### H EPATIC, CREAT, CBC, ESR #### [address] Hematocrit (Bld) [Volume fraction] 37.2 % Normal 34.0-46.4 [facility] Comment on above: Performed By: #### H EPATIC, CREAT, CBC, ESR #### [address] Hemoglobin (Bld) [Mass/Vol] 12.4 g/dL Normal 11.8-15.4 [facility] Comment on above: Performed By: #### H EPATIC, CREAT, CBC, ESR #### [address] Lymphocytes (Bld) [#/Vol] 1.5 10*3/uL Normal 1.00-4.8 [facility] Comment on above: Performed By: #### H EPATIC, CREAT, CBC, ESR #### [address] Lymphocytes/100 WBC (Bld) 12.4 % Normal . [facility] Comment on above: Performed By: #### H EPATIC, CREAT, CBC, ESR #### [address] MCH (RBC) [Entitic mass] 31.0 pg Normal 24.7-34.3 [facility] Comment on above: Performed By: #### H EPATIC, CREAT, CBC, ESR #### [address] MCV (RBC) [Entitic vol] 93.2 fL Normal 80-100 [facility] Comment on above: Performed By: #### H EPATIC, CREAT, CBC, ESR #### [address] Mean Corpuscular HGB Conc 33.3 g/dL Normal 32.0-35.0 [facility] Comment on above: Performed By: #### H EPATIC, CREAT, CBC, ESR #### [address] Monocytes (Bld) [#/Vol] 0.9 10*3/uL High 0.0-0.8 [facility] Comment on above: Performed By: #### H EPATIC, CREAT, CBC, ESR #### [address] Monocytes/100 WBC (Bld) 7.2 % Normal . [facility] Comment on above: Performed By: #### H EPATIC, CREAT, CBC, ESR #### [address] Neutrophils (Bld) [#/Vol] 9.4 10*3/uL High 1.8-7.7 [facility] Comment on above: Performed By: #### H EPATIC, CREAT, CBC, ESR #### [address] Neutrophils/100 WBC (Bld) 78.1 % Normal . [facility] Comment on above: Performed By: #### H EPATIC, CREAT, CBC, ESR #### [address] NRBC% 0.0 /100{WBC} Normal 0-0.5 [facility] Comment on above: Performed By: #### H EPATIC, CREAT, CBC, ESR #### [address] Platelet mean volume (Bld) [Entitic vol] 8.4 fL Normal 6.3-10.7 [facility] Comment on above: Performed By: #### H EPATIC, CREAT, CBC, ESR #### [place] [address] [place] Platelets (Bld) [#/Vol] 220 10*3/uL Normal 150-450 [facility] Comment on above: Performed By: #### H EPATIC, CREAT, CBC, ESR #### [facility] [address] [place] [address] RBC (Bld) [#/Vol] 3.99 10*6/uL Normal 3.60-5.00 [facility] Comment on above: Performed By: #### H EPATIC, CREAT, CBC, ESR #### [facility] [address] [place] [address] WBC (Bld) [#/Vol] 12.0 10*3/uL High 3.8-11.6 [facility] Comment on above: Performed By: #### H EPATIC, CREAT, CBC, ESR #### [facility] [address] [place] [address] Creatinineon 11-03-2022 Creatinine [Mass/Vol] 0.80 mg/dL Normal 0.60-1.20 [facility] Comment on above: Performed By: #### H EPATIC, CREAT, CBC, ESR #### [address] GFR/1.73 sq M.predicted MDRD (S/P/Bld) [Vol rate/Area] mL/min/{1.73_m2} Normal [facility] Comment on above: Result Comment: PERF ORMED BY: [place] [address] PATHOLOGIST SOURCING ANALYST TAMERA DAO M.D. Performed By: #### H EPATIC, CREAT, CBC, ESR #### [facility] [address] [place] [address] Creatinine [Mass/volume] in Serum or PlasmaOrdered By: Kyle Calderon on 11-03-2022 Creatinine [Mass/Vol] 0.80 mg/dL 0.60-1.20 [facility] Eosinophils Auto (Bld) [#/Vo l]Ordered By: Kyle Calderon on 11-03-2022 Eosinophils (Bld) [#/Vol] 0.2 10*3/uL 0.0-0.45 [facility] Eosinophils/100 WBC Auto (Bl d)Ordered By: Kyle Calderon on 11-03-2022 Eosinophils/100 WBC (Bld) 1.4 % . [facility] Erythrocyte Sedimentation Ra moon 11-03-2022 ESR (Bld) [Velocity] 12 mm/h Normal 0-[address] [facility] Comment on above: Result Comment: PERF ORMED BY: [facility] [address] [place] [place] [address] PATHOLOGIST SOURCING ANALYST TAMERA DAO M.D. Performed By: #### H EPATIC, CREAT, CBC, ESR #### [facility] [address] Erythrocyte distribution wid th Auto (RBC) [Ratio]Ordered By: Kyle Calderon on 11-03-2022 Erythrocyte distribution width (RBC) [Ratio] 14.6 % 11.9-15.3 [facility] Erythrocyte sedimentation ra te by Photometric methodOrdered By: Kyle Calderon on 11-03-2022 ESR Photometric method (Bld) [Velocity] 12 mm/hr 0-29 [facility] Globulin Calc (S) [Mass/Vol] Ordered By: Kyle Calderon on 11-03-2022 Globulin (S) [Mass/Vol] 2.2 g/dL [facility] Hematocrit Auto (Bld) [Volum e fraction]Ordered By: Kyle Calderon on 11-03-2022 Hematocrit (Bld) [Volume fraction] 37.2 % 34.0-46.4 [facility] Hemoglobin [Mass/volume] in BloodOrdered By: Kyle Calderon on 11-03-2022 Hemoglobin (Bld) [Mass/Vol] 12.4 g/dL 11.8-15.4 [facility] Hepatic Panelon 11-03-2022 Albumin [Mass/Vol] 4.0 g/dL Normal 3.5-5.7 [facility] Comment on above: Performed By: #### H EPATIC, CREAT, CBC, ESR #### [facility] [address] Albumin/Globulin [Mass ratio] 1.8 {ratio} Normal [facility] Comment on above: Performed By: #### H EPATIC, CREAT, CBC, ESR #### [facility] [address] ALP [Catalytic activity/Vol] 95 U/L Normal 34-104 [facility] Comment on above: Performed By: #### H EPATIC, CREAT, CBC, ESR #### [facility] [address] ALT [Catalytic activity/Vol] 41 U/L Normal 7-52 [facility] Comment on above: Performed By: #### H EPATIC, CREAT, CBC, ESR #### [address] AST [Catalytic activity/Vol] 17 U/L Normal 13-39 [facility] Comment on above: Performed By: #### H EPATIC, CREAT, CBC, ESR #### [facility] [address] [place] [address] Bilirubin [Mass/Vol] 0.7 mg/dL Normal 0.3-1.[address] [facility] Comment on above: Performed By: #### H EPATIC, CREAT, CBC, ESR #### [address] Bilirubin,Indirect 0.6 mg/dL Normal [facility] Comment on above: Performed By: #### H EPATIC, CREAT, CBC, ESR #### [facility] [address] [place] [address] Bilirubin.indirect [Mass/Vol] 0.10 mg/dL Normal 0.03-0.18 [facility] Comment on above: Performed By: #### H EPATIC, CREAT, CBC, ESR #### [facility] [address] [place] [address] Globulin (S) [Mass/Vol] 2.2 g/dL Normal [facility] Comment on above: Performed By: #### H EPATIC, CREAT, CBC, ESR #### [place] [address] [place] Protein [Mass/Vol] 6.2 g/dL Low 6.4-8.9 [facility] Comment on above: Performed By: #### H EPATIC, CREAT, CBC, ESR #### [facility] [address] Leukocytes [#/volume] correc edd for nucleated erythrocytes in Blood by Automated counOrdered By: Kyle Calderon on 11-03-2022 WBC corrected for nucl RBC Auto (Bld) [#/Vol] 12.0 10*3/uL 3.8-11.6 [facility] Lymphocytes Auto (Bld) [#/Vo l]Ordered By: Kyle Calderon on 11-03-2022 Lymphocytes (Bld) [#/Vol] 1.5 10*3/uL 1.00-4.8 [facility] Lymphocytes/100 WBC Auto (Bl d)Ordered By: Kyle Calderon on 11-03-2022 Lymphocytes/100 WBC (Bld) 12.4 % . [facility] MCH Auto (RBC) [Entitic mass ]Ordered By: Kyle Calderon on 11-03-2022 MCH (RBC) [Entitic mass] 31.0 pg 24.7-34.3 [facility] MCHC Auto (RBC) [Mass/Vol]Or dered By: Kyle Calderon on 11-03-2022 MCHC (RBC) [Mass/Vol] 33.3 g/dL 32.0-35.0 [facility] MCV Auto (RBC) [Entitic vol] Ordered By: Kyle Calderon on 11-03-2022 MCV (RBC) [Entitic vol] 93.2 fL 80-100 [facility] Monocytes Auto (Bld) [#/Vol] Ordered By: Kyle Calderon on 11-03-2022 Monocytes (Bld) [#/Vol] 0.9 10*3/uL 0.0-0.8 [facility] Monocytes/100 WBC Auto (Bld) Ordered By: Kyle Calderon on 11-03-2022 Monocytes/100 WBC (Bld) 7.2 % . [facility] Neutrophils Auto (Bld) [#/Vo l]Ordered By: Kyle Calderon on 11-03-2022 Neutrophils (Bld) [#/Vol] 9.4 10*3/uL 1.8-7.7 [facility] Neutrophils/100 WBC Auto (Bl d)Ordered By: Kyle Calderon on 11-03-2022 Neutrophils/100 WBC (Bld) 78.1 % . [facility] No Panel InformationOrdered By: Kyle Calderon on 11-03-2022 Estimated GFR (CKD-EPI) > 60.0 mL/Min [facility] Creatinine Clearance (Chem N/A [facility] Nucleated erythrocytes [Pres ence] in Blood by Automated countOrdered By: Kyle Calderon on 11-03-2022 Nucleated RBC Auto Ql (Bld) 0.0 /100{WBC} 0-0.5 [facility] Platelet mean volume Auto (B ld) [Entitic vol]Ordered By: Kyle Calderon on 11-03-2022 Platelet mean volume (Bld) [Entitic vol] 8.4 fL 6.3-10.7 [facility] Platelets Auto (Bld) [#/Vol] Ordered By: Kyle Calderon on 11-03-2022 Platelets (Bld) [#/Vol] 220 10*3/uL 150-450 [facility] Protein [Mass/volume] in Ser um or PlasmaOrdered By: Kyle Calderon on 11-03-2022 Protein [Mass/Vol] 6.2 g/dL 6.4-8.9 [facility] RBC Auto (Bld) [#/Vol]Ordere d By: Kyle Calderon on 11-03-2022 RBC (Bld) [#/Vol] 3.99 10*6/uL 3.60-5.00 [facility] Serum or plasma albumin/glob ulin mass ratioOrdered By: Kyle Calderon on 11-03-2022 Albumin/Globulin [Mass ratio] 1.8 {ratio} [facility] Serum or plasma non-glucuron idated bilirubin measurement (mass/volume)Ordered By: Kyle Calderon on 11-03-2022 Bilirubin.indirect [Mass/Vol] 0.6 mg/dL [facility] WBC Auto (Bld) [#/Vol]Ordere d By: Kyle Calderon on 11-03-2022 WBC (Bld) [#/Vol] 12.0 10*3/uL 3.8-11.6 [facility] XR pelvis 1-2Von 09-29-2022 XR pelvis 1-2V [facility] [employer] Other XR pelvis 1-2V [facility] [employer] Other XR pelvis 1-2V [address] [place] [address] [employer] Other XR pelvis 1-2[place] [address] No rt [employer] Other XR pelvis 1-2V XRay Report [employer] Other XR pelvis 1-2V Signed NPC III Other XR pelvis 1-2V Patient: Laly Phillips MR#: [id number] [employer] Other XR pelvis 1-2V 03 NPC III Other XR pelvis 1-2V : 1965 Acct:[id number] [employer] Other XR pelvis 1-2V Age/Sex: 57 / F ADM Date: 09/29/22 [employer] Other XR pelvis 1-2V Loc: SOXD Room: Type : [facility] [employer] Other XR pelvis 1-2V Attending Dr: Kyle Call II, MD [employer] Other XR pelvis 1-2V Copies to: Kyle Call MD [employer] Other XR pelvis 1-2V Ordering Provider: Kyle Call MD [employer] Other XR pelvis 1-2V Date of Service: 09/29/22 [employer] Other XR pelvis 1-2V XR/XR pelvis 1-2V: S32.591D [employer] Other XR pelvis 1-2V Pelvis 3 views. [employer] Other XR pelvis 1-2V CLINICAL HISTORY: Right superior/inferior pubic rami fractures [employer] Other XR pelvis 1-2V COMPARISON: Pelvis study 07/07/2022 [employer] Other XR pelvis 1-2V Examination is suboptimal due to body habitus. [employer] Other XR pelvis 1-2V The patient's right-sided pubic rami fractures are less conspicuous when compared to the prior study [employer] Other XR pelvis 1-2V with questionable calculus formation along the inferior pubic ramus fracture suggestive of healing [employer] Other XR pelvis 1-2V response. No change in alignment is seen. No new additional fractures are noted. Mild degenerative [employer] Other XR pelvis 1-2V changes are noted involving the hips and SI joints. [employer] Other XR pelvis 1-2V XR/XR pelvis 1-2V [employer] Other XR pelvis 1-2V IMPRESSION: [facility] [employer] Other XR pelvis 1-2V HEALING PUBIC RAMI FRACTURES. [employer] Other XR pelvis 1-2V Impression dictated by: Lorenzo Coker Jr.OReilly09/29/2022 9:46 AM [employer] Other XR pelvis 1-2V Dictation Location: [place] [address] [employer] Other XR pelvis 1-2V Transcribed By: VASILE 09/29/22 0946 [employer] Other XR pelvis 1-2V Dictated By: Kavon Choi Jr, DO 09/29/22 0944 [employer] Other XR pelvis 1-2V Signed By: NPC III Other XR pelvis 1-2V 09/29/22 0946 [employer] Other MR hip RT wo conon 3 MR hip RT wo con [facility] [employer] Other MR hip RT wo con [facility] [place] No rt [employer] Other MR hip RT wo con [address] [facility] [employer] Other MR hip RT [place] [address] [employer] Other MR hip RT wo con MRI Report [employer] Other MR hip RT wo con Signed [employer] Other MR hip RT wo con Patient: Laly Phillips MR#: [id number] [employer] Other MR hip RT wo con 03 [employer] Other MR hip RT wo con : 1965 Acct:[id number] [employer] Other MR hip RT wo con Age/Sex: 57 / F ADM Date: 07/27/22 [employer] Other MR hip RT wo con Loc: ICMR Room: Type : [facility] [employer] Other MR hip RT wo con Attending Dr: Kyle Call II, MD [employer] Other MR hip RT wo con Copies to: Kyle Call MD [employer] Other MR hip RT wo con Ordering Provider: Kyle Call MD [employer] Other MR hip RT wo con Date of Service: 07/27/22 [employer] Other MR hip RT wo con MR/MR hip RT wo con: S32.591A CLOSED FX RAMUS OF RIGHT PUBUS [employer] Other MR hip RT wo con MRI of the right hip without IV contrast. [employer] Other MR hip RT wo con Reason for exam: History of right inferior pubic ramus fracture. Right hip pain. [employer] Other MR hip RT wo con COMPARISON: Pelvis 07/07/2022 [employer] Other MR hip RT wo con FINDINGS: Minimal joint effusion is seen. There appears to be a fractures involving the right [employer] Other MR hip RT wo con superior and inferio r pubic ramus with associated bone marrow edema. No significant displacement of [employer] Other MR hip RT wo con these fractures are seen. Labrum appears grossly intact. No hip fracture is seen. Muscle groups [employer] Other MR hip RT wo con appear grossly unremarkable. Visualized intrapelvic contents demonstrate no acute findings. [employer] Other MR hip RT wo con MR/MR hip RT wo con [employer] Other MR hip RT wo con IMPRESSION: Nondisplaced fractures involving the right superior and inferior pubic ramus with [employer] Other MR hip RT wo con associated bone marrow edema. [employer] Other MR hip RT wo con Impression dictated by: Kavon Choi Jr., D.O.07/27/2022 11:43 AM [employer] Other MR hip RT wo con Dictation Location: [place] [address] [employer] Other MR hip RT wo con Transcribed By: VASILE 07/27/22 1143 [employer] Other MR hip RT wo con Dictated By: Kavon Choi Jr, DO 07/27/22 1140 [employer] Other MR hip RT wo con Signed By: [facility] [email or web address] Other MR hip RT wo con 07/27/22 1143 [employer] Other XR pelvis 1-2Von 07-07-2022 XR pelvis 1-2V [facility] [employer] Other XR pelvis 1-2V [facility] [employer] Other XR pelvis 1-2V [address] [place] [address] [employer] Other XR pelvis 1-2[place] [address] No rt [employer] Other XR pelvis 1-2V XRay Report [employer] Other XR pelvis 1-2V Signed NPC III Other XR pelvis 1-2V Patient: Laly Phillips MR#: [id number] [employer] Other XR pelvis 1-2V 03 NPC III Other XR pelvis 1-2V : 1965 Acct:[id number] [employer] Other XR pelvis 1-2V Age/Sex: 57 / F ADM Date: 07/07/22 [employer] Other XR pelvis 1-2V Loc: SOXD Room: Type : [facility] [employer] Other XR pelvis 1-2V Attending Dr: Kyle Call II, MD [employer] Other XR pelvis 1-2V Copies to: Kyle Call MD [employer] Other XR pelvis 1-2V Ordering Provider: Kyle Call MD [employer] Other XR pelvis 1-2V Date of Service: 07/07/22 [employer] Other XR pelvis 1-2V XR/XR hip RT min 2V(w/wo pelvis)*: PAIN [employer] Other XR pelvis 1-2V ([id number]) XR/XR pelvis 1-2V: PAIN [employer] Other XR pelvis 1-2V 2 views right hip single view pelvisplain film [employer] Other XR pelvis 1-2V COMPARISON:None [employer] Other XR pelvis 1-2V HISTORY:Status post right pubic rami fracture. Right hip pain [employer] Other XR pelvis 1-2V The nondisplaced right inferior pubic ramus fracture redemonstrated. Bony alignment unchanged. No [employer] Other XR pelvis 1-2V hip fracture. Adequate hip joint space.No significant degeneration. Articular surfaces preserved. [employer] Other XR pelvis 1-2V XR/XR hip RT min 2V(w/wo pelvis)* [employer] Other XR pelvis 1-2V IMPRESSION:Unchanged right inferior pubic ramus fracture. No hip fracture. [employer] Other XR pelvis 1-2V 2 views of the pelvis [employer] Other XR pelvis 1-2V Nondisplaced right inferior pubic ramus fracture identified. No additional fractures seen. No [employer] Other XR pelvis 1-2V diastases of the SI joints. Hip joint space is adequate. No hip fracture. [employer] Other XR pelvis 1-2V IMPRESSION: Nondisplaced right inferior pubic ramus fracture. [employer] Other XR pelvis 1-2V Impression dictated by: Ceasar Angeles M.D.07/07/2022 5:19 PM [employer] Other XR pelvis 1-2V Dictation Location: [facility]--[facility] [employer] Other XR pelvis 1-2V Transcribed By: PWS 07/07/22 1715 [employer] Other XR pelvis 1-2V Dictated By: Ceasar Angeles DO 07/07/22 1719 [employer] Other XR pelvis 1-2V Signed By: NPC III Other XR pelvis 1-2V 07/07/22 7465 [employer] [facility]-17 SARS-CoV-2 (COVID-19) RNA NANCY+probe Ql (Unsp spec) Detected Critically abnormal NOT DETECTED [facility] Comment on above: Result Comment: This test is not yet approved or cleared by the [place] FDA. When there are no FDA-approved or cleared tests available, and other criteria are met, FDA can make tests available under an emergency access mechanism called an Emergency Use Authorization (EUA). The EUA for this test is supported by the [place] of Health and Human Service's (HHS's) declaration [...] used). Performed By: #### C VDTB #### [facility] [address] [place] [address] Dr. Heather Khan INFLUENZA A AND B AGon 06-30 INFLUANEGH SEE BELOW Normal [facility] Comment on above: Result Comment: Nega tive for Flu A protein angiten. Infection due to Flu A cannot be ruled out. Flu A angiten in the sample may be below the detection limit of the test. Performed By: #### I NFLUAB #### [facility] [address] [place] [address] Dr. Heather Khan [facility] SEE BELOW Normal [facility] Comment on above: Result Comment: Nega tive for Flu B protein antigen. Infection due to Flu B cannot be ruled out. Flu B antigen in the sample may be below the detection limit of the test. Performed By: #### I NFLUAB #### [facility] [address] [place] [address] [address] Heather Khan INFLUENZA A AG Negative Normal NEGATIVE SEE COMMENT [facility] Comment on above: Performed By: #### I NFLUAB #### [facility] [address] [place] [address] Dr. Heather Khan INFLUENZA B AG Negative Normal NEGATIVE SEE COMMENT [facility] Comment on above: Performed By: #### I NFLUAB #### [facility] [address] [place] [address] Dr. Heather Khan INTERNAL CONTROLS Within Normal Limits Normal Wi thin Normal Limits [facility] Comment on above: Performed By: #### I NFLUAB #### [facility] [address] [place] [address] Dr. Heather Khan CULTURE WOUNDon 05-22-2022 CULTURE [...] F Oxacillin <=0.25 S F Normal [facility] Comment on above: Performed By: #### W OUNDCX #### [facility] [address] [place] [address] [address] Heather Khan Office Visit (Cardiology)on 03-18-2022 [...] Recorded: 18Mar2022 08:56AM Heart Rate78, R Radial [id number], LUE, Sitting Epuipgcua58, LUE, Sitting Height5 ft 1 in Ehycbv626 lb 4 oz BMI Jirjbvzvlp33.69 kg/m2 BSA Calculated2.01 Tobacco Useb) No PHQ-2 [...] skin turgor (more content not included)... Normal [facility] Tobacco Screening.on Adult depression screening assessment No [facility] 250 DO Work Phone: Tobacco use status CPHS b) No [facility] 250 DO Work Phone: XR [...] MIGUEL SERNA Date: 2022-03-01 09:02 Normal [facility] Body fluid albumin measureme nt (mass/volume)Ordered By: Kyle Calderon on 02-22-2022 Albumin (Body fld) [Mass/Vol] 3.6 g/dL 3.2-5.5 [facility] Direct bilirubin measurement Ordered By: Kyle Calderon on 02-22-2022 Bilirubin.direct [Mass/Vol] 0.1 mg/dL 0.0-0.4 [facility] Globulin Calc (S) [Mass/Vol] Ordered By: Kyle Calderon on 02-22-2022 Globulin (S) [Mass/Vol] 3.0 g/dL [facility] Protein [Mass/volume] in Ser um or PlasmaOrdered By: Kyle Calderon on 02-22-2022 Protein [Mass/Vol] 6.6 g/dL 6.1-7.9 [facility] Serum or plasma alanine gilbert otransferase measurement without P-5'-P (enzymatic activiOrdered By: Kyle Calderon on 02-22-2022 ALT No additional P-5'-P [Catalytic activity/Vol] 26 U/L 10-60 [facility] Serum or plasma albumin/glob ulin mass ratioOrdered By: Kyle Calderon on 02-22-2022 Albumin/Globulin [Mass ratio] 1.2 {ratio} [facility] Serum or plasma alkaline steven sphatase measurement (enzymatic activity/volume)Ordered By: Kyle Calderon on 02-22-2022 ALP [Catalytic activity/Vol] 74 U/L 32-92 [facility] Serum or plasma aspartate am inotransferase measurement (enzymatic activity/volume)Ordered By: Kyle Calderon on 02-22-2022 AST [Catalytic activity/Vol] 24 U/L 10-42 [facility] Serum or plasma non-glucuron idated bilirubin measurement (mass/volume)Ordered By: Kyle Calderon on 02-22-2022 Bilirubin.indirect [Mass/Vol] 0.1 mg/dL [facility] Serum or plasma total biliru bin measurement (mass/volume)Ordered By: Kyle Calderon on 02-22-2022 Bilirubin [Mass/Vol] 0.2 mg/dL 0.3-1.[address] [facility] Basophils Auto (Bld) [#/Vol] Ordered By: Kyle Calderon on 02-10-2022 Basophils (Bld) [#/Vol] 0.1 10*3/uL 0.0-0.2 [facility] Basophils/100 WBC Auto (Bld) Ordered By: Kyle Calderon on 02-10-2022 Basophils/100 WBC (Bld) 0.6 % . [facility] Blood hemoglobin measurement (mass/volume)Ordered By: Kyle Calderon on 02-10-2022 Hemoglobin (Bld) [Mass/Vol] 11.9 g/dL 11.8-15.4 [facility] Blood leukocytes automated c ount (number/volume)Ordered By: Kyle Calderon on 02-10-2022 WBC (Bld) [#/Vol] 11.4 10*3/uL 4.5-11.0 [facility] Creatinine and Glomerular fi ltration rate.predicted panel (S/P/Bld)Ordered By: Kyle Calderon on 02-10-2022 Creatinine [Mass/Vol] 0.93 mg/dL 0.44-1.03 [facility] Eosinophils Auto (Bld) [#/Vo l]Ordered By: Kyle Calderon on 02-10-2022 Eosinophils (Bld) [#/Vol] 0.2 10*3/uL 0.0-0.45 [facility] Eosinophils/100 WBC Auto (Bl d)Ordered By: Kyle Calderon on 02-10-2022 Eosinophils/100 WBC (Bld) 1.8 % . [facility] Erythrocyte distribution wid th Auto (RBC) [Ratio]Ordered By: Kyle Calderon on 02-10-2022 Erythrocyte distribution width (RBC) [Ratio] 14.0 % 11.9-15.3 [facility] Erythrocyte sedimentation ra te by Photometric methodOrdered By: Kyle Calderon on 02-10-2022 ESR Photometric method (Bld) [Velocity] 30 mm/hr 0-29 [facility] Estimated glomerular filtrat ion rate (GFR) non- AmericanOrdered By: Kyle Calderon on 02-10-2022 GFR/1.73 sq M.predicted among non-blacks MDRD (S/P/Bld) [Vol rate/Area] > 60 mL/Min [facility] Hematocrit Auto (Bld) [Volum e fraction]Ordered By: Kyle Calderon on 02-10-2022 Hematocrit (Bld) [Volume fraction] 35.9 % 34.0-46.4 [facility] Hepatitis A virus Ab [Presen ce] in Serum by ImmunoassayOrdered By: Kyle Calderon on 02-10-2022 HAV Ab IA Ql (S) Negative Negative [facility] Comment on above: Performed at: [address] [id number] [employer]ather [employer]her: Thompson Osullivan PhD, Phone: [phone] Hepatitis B virus surface Ag [Presence] in Serum or Plasma by ImmunoassayOrdered By: Kyle Calderon on 02-10-2022 HBV surface Ag IA Ql Negative Negative [facility] - Hematology and Cell countsOrdered By: Kyle Calderon on 02-10-2022 Nucleated RBC/100 WBC (Bld) [Ratio] 0.1 % 0-0.5 [facility] Lymphocytes Auto (Bld) [#/Vo l]Ordered By: Kyle Calderon on 02-10-2022 Lymphocytes (Bld) [#/Vol] 1.5 10*3/uL 1.00-4.8 [facility] Lymphocytes/100 WBC Auto (Bl d)Ordered By: Kyle Calderon on 02-10-2022 Lymphocytes/100 WBC (Bld) 13.0 % . [facility] MCH Auto (RBC) [Entitic mass ]Ordered By: Kyle Calderon on 02-10-2022 MCH (RBC) [Entitic mass] 30.1 pg 24.7-34.3 [facility] MCHC Auto (RBC) [Mass/Vol]Or dered By: Kyle Calderon on 02-10-2022 MCHC (RBC) [Mass/Vol] 33.1 g/dL 32.0-35.0 [facility] MCV Auto (RBC) [Entitic vol] Ordered By: Kyle Calderon on 02-10-2022 MCV (RBC) [Entitic vol] 91.1 fL 80-100 [facility] Monocytes Auto (Bld) [#/Vol] Ordered By: Kyle Calderon on 02-10-2022 Monocytes (Bld) [#/Vol] 0.6 10*3/uL 0.0-0.8 [facility] Monocytes/100 WBC Auto (Bld) Ordered By: Kyle Calderon on 02-10-2022 Monocytes/100 WBC (Bld) 5.3 % . [facility] Neutrophils Auto (Bld) [#/Vo l]Ordered By: Kyle Calderon on 02-10-2022 Neutrophils (Bld) [#/Vol] 9.0 10*3/uL 1.8-7.7 [facility] Neutrophils/100 WBC Auto (Bl d)Ordered By: Kyle Calderon on 02-10-2022 Neutrophils/100 WBC (Bld) 79.3 % . [facility] No Panel InformationOrdered By: Kyle Calderon on 02-10-2022 Estimated GFR () > 60 mL/Min [facility] Comment on above: GFR estimated refere nce range: According to KDOQI guidelines, <60 ml/min/1.73m2 is sufficient to diagnose a patient with chronic kidney disease. Hepatitis B Core Total Antibody Negative Negative [facility] Hepatitis C Interpretation See comment . [facility] Comment on above: Negative Not infected with HCV, unless recent infection is suspected or other evidence exists to indicate HCV infection. Hepatitis C RNA Quantitative N/A [facility] Creatinine Clearance (Chem N/A [facility] Platelet mean volume Auto (B ld) [Entitic vol]Ordered By: Kyle Calderon on 02-10-2022 Platelet mean volume (Bld) [Entitic vol] 8.2 fL 6.3-10.7 [facility] Platelets Auto (Bld) [#/Vol] Ordered By: Kyle Calderon on 02-10-2022 Platelets (Bld) [#/Vol] 272 10*3/uL 150-450 [facility] RBC Auto (Bld) [#/Vol]Ordere d By: Kyle Calderon on 02-10-2022 RBC (Bld) [#/Vol] 3.95 10*6/uL 3.60-5.00 [facility] Serum hepatitis B virus surf [place] antibody detectionOrdered By: Kyle Calderon on 02-10-2022 HBV surface Ab Ql (S) Non-Reactive . [facility] Comment on above: Non Reactive: Incons istent with immunity, less than 10 mIU/mL Reactive: Consistent with immunity, greater than 9.9 mIU/mL Serum or plasma hepatitis C virus antibody signal/cutoff ratio by immunoassay (relatiOrdered By: Kyle Calderon on 02-10-2022 HCV Ab Signal/Cutoff IA [Rel units/Vol] 0.1 s/co ratio 0.0-0.9 [facility] MUGA SCAN INJECTIONon [facility] MUGA SCAN INJECTION Patient Name: FELICITY PHILLIPS STUDY: MUGA Performing facility: [facility], [address] [place] [address], [address], [address] Provider: Amanuel Valladares RN, CAR SALTER PCP: Dr. Lorenzo Garza Supervising provider: Yanet Sommer MD INDICATION: SOB; Non-ischemic cardiomyopathy HISTORY: Gender: F; Age: 55 y/o ; Height: 154.94 cm; Weight: 242.7941744 kg. HTN; SOB; Quit smoking unknown years ago. Cardiac catheterization on 2016. COMPARISON: Previous nuclear testing completed [id number] at [facility]. Previous echo testing completed [id number] at [facility]. ACCESSION NUMBER(S): [id number]; [id number] ORDERING CLINICIAN: AMANUEL VALLADARES TECHNIQUE: The patient received an IV injection of 3 ml of stannous pyrophosphate (PYP) using the in-vivo method of labeling red blood cells. After 15 minutes the patient received another IV injection of 27.0 mCi of Technetium 99m pertechnetate. Planar images of the left ventricle were obtained in the MALDIVIAN 45, Lt Lateral and anterior projections. FINDINGS: [...] Electronically signed by: YANET SOMMER MD Normal [facility] Echocardiogramon 09-04-2020 Echocardiography [facility] [address] [place] [address], [address], [place] [address] TRANSTHORACIC ECHOCARDIOGRAM REPORT Patient Name: FELICITY PHILLIPS Reading Physician: [id number] Jose Carlos Hernandez Study Date: 09/04/2020 Referring Physician: [id number] AMANUEL VALLADARES MRN/PID: [id number] PCP: Jose Antonio Garza Accession/Order#: [id number] Department Location: [facility] Date of : 1965 Fellow: Gender: F Nurse: Nyasia Cain RN Admit Date: Railroad Accountant: Judy Rocha RDCS, RVT Height: 154.94 cm CC Report to: Weight: 104.78 kg Study Type: Echocardiogram BSA: 2.01 m2 Blood Pressure: 128 /68 mmHg Diagnosis/ICD: I42.8-Other cardiomyopathies; R06.02-Shortness of breath Indication: HTN, CHARBEL, Former Smoker, Morbid Obesity Procedure/CPT: Echo Complete w Full [id number] Study Detail: The following Echo studies were [...] mmHg PIEDV: 1.78 m/s PADP: 15.7 mmHg [id number] Jose Carlos Hernandez DO Electronically signed on 09/04/2020 at 4:00:50 PM Final Normal [facility] OBSOLETEon 08-02-2018 OBSOLETE Refill (ADELA) FELICITY PHILLIPS ([id number]) 1965 F Date Time Provider Department 08/02/18 CEASAR CUNHA During your visit today, we recorded the following information about you: Maye Diony 08/02/2018 9:23 AM Signed Pharmacy verified in Epic Patient has been identified by name and date of : Yes Prescription must be called to the pharmacy (non-escript). [facility] phone [phone]. Please call patient after medication has been [...] lb) Not applicable Please advise. Maye Amaral APRN.CAR SALTER 08/03/2018 9:25 AM Signed We have no [...] copy of the labs. Thanks, Brandie Amaral APRN.CAR SALTER Allergies As of Date: 08/02/2018 Noted Allergy [...] by BRANDIE AMARAL CNP on 08/03/18 Normal [facility] CNOVon 05-30-2018 CNOV Office Visit (CARDFT ) FELICITY PHILLIPS ([id number]) 1965 F Date Time Provider Department 05/30/18 9:30 AM CEASAR CUNHA During your visit today, we recorded the following information about you: Pulse Blood pressure Weight Height 82/minute 142/80 105.1 kg 1.524 m Ceasar Cunha MD 05/30/2018 9:42 AM [facility] [place] Nataly Rodriguez Department of Cardiovascular Medicine OUTPATIENT VISIT DATE 05/30/18 OUTPATIENT VISIT TYPE ESTABLISHED PRIMARY CARE PHYSICIAN: Jose Antonio Garza MD [address] [place] [phone] CHIEF COMPLAINT: Patient presents with: Follow Up [...] visit. Apparently she had a hospitalization at [facility] which led to transfer to [facility]. She had a cardiac catheterization performed which [...] T-wave changes. The patient was sent to [place] emergency room where she was evaluated and eventually transferred to [facility] where she underwent a cardiac catheterization which [...] her echocardiogram noted above. Cardiac catheterization at [facility] in January 2017 revealed normal coronary arteries and a mild to moderate reduction in left ventricular ejection fraction at 40%. The LVEDP was elevated at 20-25 mmHg. A 2-D echocardiogram performed at [facility] in January 2017 revealed a left ventricular [...] U.S. Mail. This document was generated utilizing [employer] dictation. I have reviewed and verified that the contents of the document are accurate with the exception of minor grammatical, spelling and punctuation errors. CONTACT INFORMATION: Thank you for allowing us to participate in the care of this very pleasant patient. Please free to contact us if we can be of any further assistance. Ceasar Cunha MD, [facility] Nataly Rodriguez Department of Cardiovascular Medicine [facility] [place] At [address] [address] Office: [phone] Referring Provider: JOSE ANTONIO GARZA [[id number]] Allergies As of Date: 05/30/2018 Noted Allergy [...] by JENNY CUNHA MD on 05/30/18 Normal [facility] PROGRESSon 05-30-2018 Protein mass conc HNO ID: [id number] Author: Ceasar Cunha Service: (none) Author Type: Physician Type: Progress Notes Filed: 05/30/2018 9:42 AM Note Text: [facility] [place] Nataly Rodriguez Department of Cardiovascular Medicine OUTPATIENT VISIT DATE 05/30/18 OUTPATIENT VISIT TYPE ESTABLISHED PRIMARY CARE PHYSICIAN: Jose Antonio Garza MD [address] [place] [phone] CHIEF COMPLAINT: Patient presents with: Follow Up [...] visit. Apparently she had a hospitalization at [facility] which led to transfer to [facility]. She had a cardiac catheterization performed which [...] T-wave changes. The patient was sent to [place] emergency room where she was evaluated and eventually transferred to [facility] where she underwent a cardiac catheterization which [...] her echocardiogram noted above. Cardiac catheterization at [facility] in January 2017 revealed normal coronary arteries and a mild to moderate reduction in left ventricular ejection fraction at 40%. The LVEDP was elevated at 20-25 mmHg. A 2-D echocardiogram performed at [facility] in January 2017 revealed a left ventricular [...] U.S. Mail. This document was generated utilizing Spr[employer] dictation. I have reviewed and verified that the contents of the document are accurate with the exception of minor grammatical, spelling and punctuation errors. CONTACT INFORMATION: Thank you for allowing us to participate in the care of this very pleasant patient. Please free to contact us if we can be of any further assistance. Ceasar Cunha MD, [facility] Nataly Rodriguez Department of Cardiovascular Medicine [facility] [place] At [facility] [address] [place], [place] [address] Office: [phone] Normal [facility] CNOVon 01-30-2018 CNOV Office Visit (CARDFT ) FELICITY PHILLIPS ([id number]) 1965 F Date Time Provider Department 01/30/18 10:30 AM CEASAR CUNHA During your visit today, we recorded the following information about you: Pulse Respiration Blood pressure Weight 69/minute 16/minute 133/74 102.1 kg Ceasar Cunha MD 01/30/2018 11:03 AM [facility] [place] Nataly Rodriguez Department of Cardiovascular Medicine OUTPATIENT VISIT DATE 01/30/18 OUTPATIENT VISIT TYPE ESTABLISHED PRIMARY CARE PHYSICIAN: Jose Antonio Garza MD [address] [facility] [phone] CHIEF COMPLAINT: Patient presents with: Follow Up [...] visit. Apparently she had a hospitalization at [facility] which led to transfer to [facility]. She had a cardiac catheterization performed which [...] T-wave changes. The patient was sent to [place] emergency room where she was evaluated and eventually transferred to [facility] where she underwent a cardiac catheterization which [...] her echocardiogram noted above. Cardiac catheterization at [facility] in January 2017 revealed normal coronary arteries and a mild to moderate reduction in left ventricular ejection fraction at 40%. The LVEDP was elevated at 20-25 mmHg. A 2-D echocardiogram performed at [facility] in January 2017 revealed a left ventricular [...] U.S. Mail. This document was generated utilizing Spr[employer] dictation. I have reviewed and verified that the contents of the document are accurate with the exception of minor grammatical, spelling and punctuation errors. CONTACT INFORMATION: Thank you for allowing us to participate in the care of this very pleasant patient. Please free to contact us if we can be of any further assistance. Ceasar Cunha MD, [facility] Kyle and Danna Rodriguez Department of Cardiovascular Medicine [facility] [place] [facility] [place] [address] Office: [phone] Referring Provider: JOSE ANTONIO GARZA [[id number]] Allergies As of Date: 01/30/2018 Noted Allergy [...] by JENNY CUNHA MD on 01/30/18 Normal [facility] PROGRESSon 01-30-2018 Protein mass conc HNO ID: [id number] Author: Ceasar Cunha Service: (none) Author Type: Physician Type: Progress Notes Filed: 01/30/2018 11:03 AM Note Text: [facility] [place] Nataly Rodriguez Department of Cardiovascular Medicine OUTPATIENT VISIT DATE 01/30/18 OUTPATIENT VISIT TYPE ESTABLISHED PRIMARY CARE PHYSICIAN: Jose Antonio Garza MD [address] [facility] [phone] CHIEF COMPLAINT: Patient presents with: Follow Up [...] visit. Apparently she had a hospitalization at [facility] which led to transfer to [facility]. She had a cardiac catheterization performed which [...] T-wave changes. The patient was sent to [place] emergency room where she was evaluated and eventually transferred to [facility] where she underwent a cardiac catheterization which [...] her echocardiogram noted above. Cardiac catheterization at [facility] in January 2017 revealed normal coronary arteries and a mild to moderate reduction in left ventricular ejection fraction at 40%. The LVEDP was elevated at 20-25 mmHg. A 2-D echocardiogram performed at [facility] in January 2017 revealed a left ventricular [...] U.S. Mail. This document was generated utilizing Scribble [employer] dictation. I have reviewed and verified that the contents of the document are accurate with the exception of minor grammatical, spelling and punctuation errors. CONTACT INFORMATION: Thank you for allowing us to participate in the care of this very pleasant patient. Please free to contact us if we can be of any further assistance. Ceasar Cunha MD, [facility] and Danna Rodriguez Department of Cardiovascular Medicine [facility] [place] [facility] [place] [address] Office: [phone] Normal [facility] Vital Signs Date Time Vital Sign Value Performing Clinician Facility 11-10-2023 14:38-0400 Body height 154.9 cm Amanuel Valladares [employer] SALTER Work Phone: [facility] 11-10-2023 14:38-0400 Body mass index (BMI) [Ratio] 40.43 kg/m2 Amanuel Valladares [employer]-CAR SALTER Work Phone: [facility] 11-10-2023 14:38-0400 Body weight 97.07 kg Amanuel Valladares [employer]ST-CAR SALTER Work Phone: [facility] 11-10-2023 14:38-0400 Diastolic blood pressure 92 mm[Hg] Amanuel Valladares [employer]ST-CAR SALTER Work Phone: [facility] 11-10-2023 14:38-0400 Heart rate 69 /min Amanuel Valladares APRN-CAR SALTER Work Phone: [facility] 11-10-2023 14:38-0400 Systolic blood pressure 138 mm[Hg] Amanuel Valladares [employer]-CAR SALTER Work Phone: [facility] 05-31-2023 23:54-0500 Diastolic blood pressure 80 mm[Hg] MD Jose Antonio Garza Work Phone: [facility] 05-31-2023 23:54-0500 Systolic blood pressure 178 mm[Hg] MD Jose Antonio Garza Work Phone: [facility] 05-31-2023 21:57-0500 Body height 152.4 cm MD Jose Antonio Garza Work Phone: [facility] 05-31-2023 21:57-0500 Body temperature 98.9 [degF] MD Jose Antonio Garza Work Phone: [facility] 05-31-2023 21:57-0500 Body weight 102.65 kg MD Jose Antonio Garza Work Phone: [facility] 05-31-2023 21:57-0500 Heart rate 98 /min MD Jose Antonio Garza Work Phone: [facility] 05-31-2023 21:57-0500 Respiratory rate 20 /min MD Jose Antonio Garza Work Phone: [facility] 05-31-2023 21:57-0500 SaO2% (BldA) [Mass fraction] 96 % MD Jose Antonio Garza Work Phone: [facility] 05-11-2023 08:13-0400 Body height 154.9 cm Amanuel Valladares [employer]ST-[employer] SALTER Work Phone: [facility] 05-11-2023 08:13-0400 Body mass index (BMI) [Ratio] 42.32 kg/m2 Amanuel Valladares [employer]ST-CAR SALTER Work Phone: [facility] 05-11-2023 08:13-0400 Body weight 101.61 kg Amanuel Valladares [employer]LYST-CAR SALTER Work Phone: [facility] 05-11-2023 08:13-0400 Diastolic blood pressure 80 mm[Hg] Amanuel Valladares [employer]ST-CAR SALTER Work Phone: [facility] 05-11-2023 08:13-0400 Heart rate 92 /min Amanuel Valladares [employer]ST-CAR SALTER Work Phone: [facility] 05-11-2023 08:13-0400 Systolic blood pressure 130 mm[Hg] Amanuel Valladares [employer]-CAR SALTER Work Phone: [facility] 02-24-2023 11:56-0400 Body temperature 98.06 [degF] [facility] 02-24-2023 11:56-0400 Diastolic blood pressure 100 mm[Hg] [facility] 02-24-2023 11:56-0400 Heart rate 89 /min [facility] 02-24-2023 11:56-0400 Respiratory rate 16 /min [facility] 02-24-2023 11:56-0400 SaO2% (BldA) [Mass fraction] 98 % [facility] 02-24-2023 11:56-0400 Systolic blood pressure 200 mm[Hg] [facility] 11-25-2022 12:00-0400 Body height 154.94 cm Nancy Kapadia Other [facility] [email or web address] Other 11-25-2022 12:00-0400 Body mass index (BMI) [Ratio] 45.91 kg/m2 Nancy Kapadia Other [employer] Other 11-25-2022 12:00-0400 Body weight 110.22 kg Nancy Kapadia Other [employer] Other 11-25-2022 12:00-0400 Diastolic blood pressure 98 mm[Hg] Nancy Kapadia Other [employer] Other 11-25-2022 12:00-0400 Systolic blood pressure 160 mm[Hg] Nancy Kapadia Other [employer] Other 07-07-2022 14:00-0500 Body height 154.94 cm Kyle Call II Other [employer] Other 07-07-2022 14:00-0500 Body mass index (BMI) [Ratio] 41.56 kg/m2 Kyle Call II Other [employer] Other 07-07-2022 14:00-0500 Body weight 99.79 kg Kyle Call II Other [employer] Other 07-05-2022 13:34-0500 Body height 154.94 cm MD Jose Antonio Garza Work Phone: [facility] 07-05-2022 13:34-0500 Body temperature 97.5 [degF] MD Jose Antonio Garza Work Phone: [facility] 07-05-2022 13:34-0500 Body weight 100 kg MD Jose Antonio Garza Work Phone: [facility] 07-05-2022 13:34-0500 Diastolic blood pressure 98 mm[Hg] MD Jose Antonio Garza Work Phone: [facility] 07-05-2022 13:34-0500 Heart rate 85 /min MD Jose Antonio Garza Work Phone: [facility] 07-05-2022 13:34-0500 Respiratory rate 20 /min MD Jose Antonio Garza Work Phone: [facility] 07-05-2022 13:34-0500 SaO2% (BldA) [Mass fraction] 96 % MD Jose Antonio Garza Work Phone: [facility] 07-05-2022 13:34-0500 Systolic blood pressure 188 mm[Hg] MD Jose Antonio Garza Work Phone: [facility] 05-19-2022 14:53-0400 Blood Pressure Location Jose Carlos SALCEDO [facility] [place] 05-19-2022 14:53-0400 Diastolic blood pressure 82 mm[Hg] Jose Carlos SALCEDO [facility] [place] 05-19-2022 14:53-0400 Heart rate 80 /min Jose Carlos FARAHL [facility] [place] 05-19-2022 14:53-0400 Respiratory rate 16 /min Jose Carlos FARAHL [facility] [place] 05-19-2022 14:53-0400 Systolic blood pressure 120 mm[Hg] Jose Carlos FARAHL [facility] [place] 05-10-2022 09:07-0400 Body temperature 98.06 [degF] Mamadou Gonzalez [facility] 05-10-2022 09:07-0400 Diastolic blood pressure 88 mm[Hg] Mamadou Gonzalez [facility] 05-10-2022 09:07-0400 Heart rate 68 /min Mamadou Gonzalez [facility] 05-10-2022 09:07-0400 Respiratory rate 20 /min Mamadou Gonzalez [facility] 05-10-2022 09:07-0400 SaO2% (BldA) [Mass fraction] 98 % Mamadou Gonzalez [facility] 05-10-2022 09:07-0400 Systolic blood pressure 146 mm[Hg] Mamadou Gonzalez [facility] 03-18-2022 08:56-0400 Body height 154.94 cm Jose Antonio [employer] Work Phone: [facility] 250 DO Work Phone: 03-18-2022 08:56-0400 Body mass index (BMI) [Ratio] 43.69 kg/m2 Jose Antonio [employer] Work Phone: [facility] 250 DO Work Phone: 03-18-2022 08:56-0400 Body surface area Derived from formula 2.01 m2 Jose Antonio Fabrice Hoy Work Phone: [facility] 250 DO Work Phone: 03-18-2022 08:56-0400 Body weight 104.89 kg Jose Antonio Fabrice Hoy Work Phone: [facility] 250 DO Work Phone: 03-18-2022 08:56-0400 Diastolic blood pressure 82 mm[Hg] Jose Antonio Fabrice Hoy Work Phone: [facility] 250 DO Work Phone: 03-18-2022 08:56-0400 Heart rate 78 /min Jose Antonio Fabrice Hoy Work Phone: [facility] [address] DO Work Phone: 03-18-2022 08:56-0400 Systolic blood pressure 140 mm[Hg] Jose Antonio Avina Hoy Work Phone: [facility] [address] DO Work Phone: Encounters Encounter Date Encounter Type Care Provider Facility Start: 11-10-2023 End: 11-10-2023 ambulatory [facility] Ambulatory Start: 11-10-2023 End: 11-10-2023 Encounter for other preprocedural examination [facility] Ambulatory Start: 11-10-2023 End: 11-10-2023 Office outpatient visit 15 minutes Amanuel Lindsey Valladares [employer] SALTER Work Phone: [facility] Comment on above: Pre-operative cleara nce (Primary Dx); Non-ischemic cardiomyopathy (Multi); Primary hypertension; Morbid obesity (Multi) Start: 11-10-2023 End: 11-10-2023 Preoperative state Amanuel Rosalia Valladares [employer] SALTER Work Phone: [facility] Work Phone: Start: 10-31-2023 ambulatory FCO COLLIER Facil ity:[facility] Start: 09-27-2023 End: 09-27-2023 ambulatory Kyle Calderon Facility:[facility] Start: 08-01-2023 End: 08-01-2023 ambulatory BRITTANY Alonso MACEY Not Available Start: 06-27-2023 End: 06-27-2023 ambulatory BRITTANY Celeste CHOUDHURY Not Available Start: 06-21-2023 End: 06-21-2023 ambulatory BRITTANY CHOUDHURY Not Available Start: 05-31-2023 End: 06-01-2023 Emergency department patient visit Stef Molina Jr Facility:[facility] Start: 05-31-2023 End: 05-31-2023 Emergency department patient visit MD Jose Antonio Garza Work Phone: [facility] Work Phone: Start: 05-11-2023 End: 05-11-2023 ambulatory [facility] Ambulatory Start: 05-11-2023 End: 05-11-2023 Office outpatient visit 15 minutes [facility] [employer] SALTER Work Phone: [facility] Comment on above: Non-ischemic cardiom yopathy (CMS/HCC) (Primary Dx); Primary hypertension; Obstructive sleep apnea syndrome; Morbid obesity (CMS/HCC); Hypertension, unspecified type; SOB (shortness of breath) on exertion Start: 04-28-2023 End: 04-28-2023 ambulatory Jose Antonio Garza Facility:[facility] Start: 04-28-2023 End: 04-28-2023 ambulatory MD Jose Antonio Garza Work Phone: [facility] Work Phone: Start: 04-28-2023 End: 04-28-2023 Patient encounter procedure MD Jose Antonio Garza Work Phone: [facility] [address] Work Phone: Start: 03-28-2023 Rx Renewal Jose Antonio Garza Work Phone: [facility] [address] DO Work Phone: Start: 02-24-2023 End: 02-24-2023 Emergency department patient visit Briana Winters Facility:[facility] Start: 02-24-2023 End: 02-24-2023 Emergency department patient visit Briana Winters [facility] Start: 01-05-2023 End: 01-05-2023 ambulatory Kyle Calderon Facility:[facility] Start: 01-05-2023 End: 01-05-2023 ambulatory MD Jose Antonio Garza Work Phone: [facility] Work Phone: Start: 01-05-2023 End: 01-05-2023 Patient encounter procedure MD Jose Antonio Garza Work Phone: [facility] [address] Work Phone: Start: 11-30-2022 End: 11-30-2022 ambulatory Maxi Glez Other [place] [employer] Other Start: 11-30-2022 Telephone encounter Maxi Glez [employer] Assistant Principal Start: 11-25-2022 End: 11-25-2022 ambulatory Nancy Kapadia Other [facility] [email or web address] Other Start: 11-25-2022 Office outpatient ne w 45 minutes Nancy Kapadia [facility] Neurosurgery Start: 11-22-2022 Rx Renewal Jose Antonio Garza Work Phone: [facility] [address] DO Work Phone: Start: 11-13-2022 End: 11-14-[address] JOSE ANTONIO GARZA . Facility: Start: 11-03-2022 End: 11-03-2022 ambulatory Kyle Calderon Facility:[facility] Start: 11-03-2022 End: 11-03-2022 ambulatory MD Jose Antonio Garza Work Phone: [facility] Work Phone: Start: 11-03-2022 End: 11-03-2022 Patient encounter procedure MD Jose Antonio Garza Work Phone: [facility] [address] [place] Work Phone: Start: 11-01-2022 Rx Renewal Jose Antonio Garza Work Phone: [facility] 250 DO Work Phone: Start: 10-19-2022 End: 10-19-2022 ambulatory Kyle Baldwin II Other [employer] Other Start: 10-19-2022 Telephone encounter Kyle Baldwin II [facility] Start: 10-07-2022 End: 10-07-2022 ambulatory Kyle Baldwin II Other [employer] Other Start: 10-07-2022 Telephone encounter Kyle Jakub II [facility] Start: 09-29-2022 Office outpatient vi sit 25 minutes Kyle Baldwin II [facility] Start: 09-29-2022 End: 09-29-2022 ambulatory MD Jose Antonio Garza Work Phone: [facility] Work Phone: Start: 09-29-2022 End: 09-29-2022 Patient encounter procedure MD Jose Antonio Garza Work Phone: [facility] Start: 09-06-2022 Rx Renewal Jose Antonio Garza Work Phone: [facility] [address] DO Work Phone: Start: 08-02-2022 End: 08-02-2022 ambulatory Kyle Baldwin II Other [employer] Other Start: 08-02-2022 Telephone encounter Kyle Baldwin II [facility] Start: 07-30-2022 End: 07-30-2022 ambulatory Kyle Baldwin II Other [employer] Other Start: 07-30-2022 Office outpatient vi sit 25 minutes Kyle Baldwin II [facility] Start: 07-27-2022 End: 07-27-2022 Patient encounter procedure MD Jose Antonio Garza Work Phone: [facility] [address] Work Phone: Start: 07-22-[address] JOSE ANOTNIO GARZA . Facili ty:[facility] Start: 07-07-2022 Office outpatient ne w 45 minutes Kyle Baldwin II [facility] Start: 07-07-2022 End: 07-07-2022 ambulatory MD Jose Antonio Garza Work Phone: [facility] Work Phone: Start: 07-07-2022 End: 07-07-2022 Patient encounter procedure MD Jose Antonio Garza Work Phone: [facility] [facility] Start: 07-05-2022 End: 07-05-2022 Emergency department patient visit MD Jose Antonio Garza Work Phone: [facility] Start: 06-30-2022 End: 06-30-[address] JOSE ANTONIO GARZA . Facility:H1 Start: 05-19-2022 End: 05-19-[address] JOSE ANTONIO GARZA . Facility:H1 Start: 05-19-2022 End: 05-19-2022 Patient encounter procedure Jose Carlos SALCEDO General Surgery Nill/Said Jaleel Start: 05-10-2022 End: 05-10-2022 Emergency department patient visit Mamadou Carlos [facility] Start: 03-18-2022 Office outpatient vi sit 15 minutes Jose Antonio Garza Work Phone: [facility] 250 DO Work Phone: Start: 03-01-2022 End: 03-01-[address] JOSE ANTONIO GARZA . Facility:H1 Start: 02-22-2022 End: 02-22-2022 Patient encounter procedure MD Jose Antonio Garza Work Phone: [facility] [address] Start: 02-15-2022 End: 02-16-[address] JOSE ANTONIO GARZA . Facility:H1 Start: 02-10-2022 End: 02-10-2022 Patient encounter procedure MD Jose Antonio Garza Work Phone: [facility] [address] [place] Start: 01-26-2022 Rx Renewal Jose Antonio Garza Work Phone: [facility] DO Work Phone: Start: 01-22-2022 Rx Renewal Jose Antonio Garza Work Phone: [facility] 250 DO Work Phone: Start: 10-06-2021 AUDIT oJse Antonio Garza Work Phone: [facility] DO Work Phone: Start: 10-17-2018 Patient encounter procedure PROVIDER UNKNOWN Facility:[id number] Start: 10-17-2018 Patient encounter procedure Facility:[id number] Start: 05-30-2018 End: 06-09-2018 Patient encounter procedure CEASAR CUNHA [facility] Start: 01-30-2018 End: 01-30-2018 Patient encounter procedure CEASAR CUNHA [facility] Start: 04-07-2017 End: 04-08-2017 Ambulatory DEFAULT PHYSICIAN Facility:[facility] Procedures Date Procedure Procedure Detail Performing Clinician Start: 11-10-2023 Ecg routine ecg w/le ast 12 lds w/i&r Amanuel Valladares [employer] Work Phone: Start: 05-31-2023 SARS-CoV-2, Influenz a [...] bilateral salpingo-oophorectomy Mamadou Gonzalez Total colonoscopy Jose Antnoio Garza Work Phone: Comment on above: ONSET DATE 18Jul2014; Plan of Treatment Date Care Activity Detail Author Start: 05-10-2032 DTaP/Tdap/Td Vaccines (3 - Td or Tdap) DTaP/Tdap/Td Vaccines (3 - Td or Tdap) [facility] Start: 05-09-2024 End: 05-09-2024 Patient encounter procedure 05/09/2024 8:00 AM EDT Office Visit [facility] [address] [facility] [address] [place] [id number] Amanuel Valladares, [employer] SALTER [address] [facility] [address] [place] [address] [facility] Start: 04-23-2024 End: 04-23-2024 Patient encounter procedure 04/23/2024 8:00 AM EDT Office Visit [facility] [address] [facility] [address] [place] [address] Amanuel Valladares, [employer] [address] [facility] [address] [place] [address] [facility] Start: 03-18-2024 Influenza vaccination Influenza Vaccine (Season Ended) [facility] Start: 05-31-2023 Plain chest X-ray XR chest 2V* [facility] Start: 05-31-2023 XR Chest 2 Views [facility] Start: 05-11-2023 FUV, Provider: Amanuel Davis, Status: Pen, Time: 8:00 AM FUV, Provider: Amanuel Davis, Status: Pen, Time: 8:00 AM [facility] DO Work Phone: Start: 03-23-2023 FUV, Provider: Amanuel Davis, Status: Pen, Time: 9:00 AM FUV, Provider: Amanuel Davis, Status: Pen, Time: 9:00 AM [facility] 250 DO Work Phone: Start: 03-18-2023 Influenza vaccination Influenza Vaccine (#1) [facility] Start: 03-17-2022 FUV, Provider: Frandy Fung, Status: Pen, Time: 10:10 AM FUV, Provider: Frandy Fung, Status: Pen, Time: 10:10 AM [facility] Work Phone: Start: 02-22-2022 End: 02-22-2022 Patient encounter procedure Departed Clinical [facility] [address] Start: 12-17-2021 FUV, Provider: Frandy Fung, Status: Pen, Time: 9:50 AM FUV, Provider: Frandy Fung, Status: Pen, Time: 9:50 AM [facility] 250 DO Work Phone: Start: 11-22-2020 COVID-19 Vaccine (3 - Moderna risk series) COVID-19 Vaccine (3 - Moderna risk series) [facility] Start: 2006 Screening for malignant neoplasm of breast Mammogram [facility] Start: 1987 Screening for malignant neoplasm of cervix [facility] Start: 1985 Hepatitis B Vaccines (1 of 3 - 19+ 3-dose series) Hepatitis B Vaccines (1 of 3 - 19+ 3-dose series) [facility] Start: 1985 Zoster Vaccines (1 of 2) Zoster Vaccines (1 of 2) [facility] Start: 1984 Diabetes mellitus screening Diabetes Screening [facility] Start: 1984 Hepatitis C screening Hepatitis C Screening [facility] Start: 1972 Pneumococcal Vaccine: Pediatrics (0 to 5 Years) and At-Risk Patients (6 to 64 Years) (1 - PCV) Pneumococcal Vaccine: Pediatrics (0 to 5 Years) and At-Risk Patients (6 to 64 Years) (1 - PCV) [facility] Start: 1972 Pneumococcal Vaccine: Pediatrics (0 to 5 Years) and At-Risk Patients (6 to 64 Years) (1 of 2 - PCV) Pneumococcal Vaccine: Pediatrics (0 to 5 Years) and At-Risk Patients (6 to 64 Years) (1 of 2 - PCV) [facility] Start: 1967 MMR Vaccines (1 of 1 - Standard series) MMR Vaccines (1 of 1 - Standard series) [facility] Start: 1966 Hepatitis B Vaccines (1 of 3 - 3-dose series) Hepatitis B Vaccines (1 of 3 - 3-dose series) [facility] Start: 1966 HIV screening HIV Screening [facility] Start: 1966 Lipid panel Lipid Panel [facility] Start: 1966 Screening for malignant neoplasm of colon [facility] Start: 1966 Yearly Adult Physical Yearly Adult Physical [facility] ECG 12 Lead ECG 12 Lead ECG Routine Pre-operative clearance 11/10/2023 2:30 PM EDT [facility] Service Area Work Phone: Patient Education [facility] Work Phone: Patient referral [facility] Work Phone: Immunizations Immunization Date Immunization Notes Care Provider Shanta gladys 05-10-2022 tetanus toxoid, redu lorena diphtheria toxoid, and acellular pertussis vaccine, adsorbed Mamadou Gonzalez [facility] 05-27-2021 influenza virus vaccine, unspecified formulation Jose Antonio M Hoy Work Phone: [facility] 250 DO Work Phone: 10-25-2020 Moderna COVID-19 Vaccine 100 MCG/0.5ML Intramuscular Suspension Jose Antonio M Hoy Work Phone: [facility] DO Work Phone: 09-27-2020 Moderna COVID-19 Vaccine 100 MCG/0.5ML Intramuscular Suspension Jose Antonio M Hoy Work Phone: [facility] 250 DO Work Phone: 05-16-2020 influenza virus vaccine, unspecified formulation Jose Antonio M Hoy Work Phone: [facility] DO Work Phone: 04-27-2020 influenza virus vaccine, unspecified formulation Jose Antonio M Hoy Work Phone: [facility] DO Work Phone: 04-27-2020 influenza, seasonal, injectable Amanuel Valladares [employer] Work Phone: [facility] Work Phone: 05-17-2019 influenza virus vaccine, unspecified formulation Jose Antonio M Hoy Work Phone: [facility] 250 DO Work Phone: 04-17-2018 influenza virus vaccine, unspecified formulation Jose Antonio M Hoy Work Phone: [facility] 250 DO Work Phone: 04-28-2016 influenza, injectabl e, quadrivalent, preservative free Jose Antonio M Hoy Work Phone: [facility] DO Work Phone: 04-22-2016 influenza, seasonal, injectable Jose Antonio Garza Work Phone: [facility] 04-17-2016 influenza virus vaccine, unspecified formulation Jose Antonio Garza Work Phone: [facility] 250 DO Work Phone: 06-08-2014 tetanus toxoid, redu lorena diphtheria toxoid, and acellular pertussis vaccine, adsorbed Kyle Baldwin II Other [facility] [employer] Other 06-01-2010 tetanus toxoid, redu lorena diphtheria toxoid, and acellular pertussis vaccine, adsorbed Mamadou Gonzalez [facility] Payers Date Payer Category Payer Unknown 1965 Unknown [id number] 1966 Unknown [id number] [id number] 1966 Unknown [id number] [id number] 1966 Unknown [id number] 2.16.840.1.442534.3.579.2.593 1966 Unknown [id number] 2.16.840.1.732171.3.579.2.593 1966 Unknown [id number] 2.16.840.1.713121.3.579.2.593 1966 Unknown [id number] 2.16.840.1.530044.3.579.2.593 1966 Unknown [id number] 2.16.840.1.060621.3.579.2.593 1966 Unknown [id number] 2.16.840.1.424648.3.579.2.1259 1966 Unknown [id number] 2.16.840.1.267518.3.579.2.1259 1966 Unknown [id number] 2.16.840.1.409505.3.579.2.1259 1966 Unknown [id number] 2.16.840.1.409085.3.579.2.1244 1966 Unknown [id number] 2.16.840.1.444690.3.579.2.1244 1966 Unknown [id number] 2.16.840.1.103541.3.579.2.727 1966 Unknown [id number] 2.16.840.1.747804.3.579.2.727 1959 Self-pay [id number] 1959 Unknown [id number] Unknown [id number] 2.16.840.1.392675.3.579.2.531 Unknown [id number] 2.16.840.1.679348.3.579.2.531 Unknown [id number] 2.16.840.1.688589.3.579.2.531 Unknown [id number] 2.16.840.1.822281.3.579.2.531 Unknown [id number] [id number] Worker's Compensation [employer] [id number] Social History Date Type Detail Facility Start: 05-11-2023 Caffeine [facility] DO Work Phone: Comment on above: OCCASIONAL COFFEE; QUIT 1988 07/19 PPD; Start: 06-01-2021 End: 05-11-2023 Tobacco smoking status NHIS Never smoked tobacco (finding) [facility] Start: 1965 Sex Assigned At Female F [facility] Start: 05-11-2023 Sex Assigned At Female F [facility] Tobacco smoking status Never [facility] [place] Start: 05-11-2023 End: 11-10-2023 Tobacco use and exposure Smokeless tobacco non-user [facility] Work Phone: Start: 05-11-2023 End: 11-10-2023 Alcohol intake Current drinker of alcohol (finding) [facility] Work Phone: Start: 05-11-2023 Alcohol Comment social [facility] Work Phone: Start: 1965 Sex Assigned At Not on file [facility] Work Phone: Start: 05-01-2023 End: 11-10-2023 Exposure to SARS-CoV-2 (event) Not sure [facility] Start: 05-31-2023 End: 11-10-2023 Tobacco smoking status NHIS Ex-smoker (finding) [facility] History of tobacco use Current smoker [facility] Work Phone: History of tobacco use Cigarette Smoker [facility] Work Phone: Functional Status Date Assessment Result Facility 02-24-2023 Functional Status N/A [facility] 05-19-2022 Functional Status N/A [facility] 05-10-2022 Functional Status N/A [facility] Clinical Notes 02-16-2022 to 11-10-2023 Assessment & Plan Note - KADE Riggs - 11/10/2023 3:45 PM EDTAssessment & Plan Note - KADE Riggs - 11/10/2023 3:45 PM EDTPatient InstructionsPatient Instructions Note Date & Type Note Facility 11-10-2023 Evaluation + Plan note Associated Problem(s): Morbid obesity (Multi) Reviewed the merits of healthy lifestyle choices on overall cardiovascular health. [facility] Work Phone: 11-10-2023 Evaluation + Plan note Associated Problem(s): Hypertension Optimal in office [facility] Work Phone: 11-10-2023 Evaluation + Plan note Associated Problem(s): Non-ischemic cardiomyopathy (Multi) HF improved EF 64% December 2020 MUGA (08/2020 TTE EF 30%) FC II Stage C Remains on optimal GDMT [facility] Work Phone: 11-10-2023 Miscellaneous Notes Associated Problem(s): Morbid obesity (Multi) Reviewed the merits of healthy lifestyle choices on overall cardiovascular health. Associated Problem(s): Hypertension Optimal in office Associated Problem(s): Non-ischemic cardiomyopathy (Multi) HF improved EF 64% December 2020 MUGA (08/2020 TTE EF 30%) FC II Stage C Remains on optimal GDMT documented in this encounter [facility] Work Phone: 11-10-2023 History of Presen t [...] cardiovascular complaints. Patient presents to [facility] to obtain cardiac risk stratification prior to a lumbar fusion. Surgeon: Dr. Alexander. Planned date: December 02, 2023 Patient presents to the office today with activity level > 4 METS. Daily activity includes: ADLs, housework, works full-time at [employer] Total DASI: 31.45 METs: 6.6 EKG in office: Normal sinus rhythm, nonspecific changes. No ischemia. ACC/AHA guidelines: 1. Major clinical markers: -Acute coronary syndrome or WA within 30 days: No -Decompensated heart failure: No -Significant arrhythmia: No -Severe valvular heart disease: No 2. Intermediate clinical markers -History of ischemic heart disease (prior [place], current chest pain secondary to ischemia, use [...] proceed with surgical procedure. Amanuel Valladares MSN, [employer], PMHNP-[facility] Please excuse any errors in grammar or translation related to this dictation. Voice recognition software was utilized to prepare this document. documented in this encounter [facility] Work Phone: 11-10-2023 Instructions KADE Riggs - [...] arise. As scheduled documented in this encounter [facility] Work Phone: 05-11-2023 Evaluation + Plan note Associated Problem(s): SOB (shortness of breath) on exertion No evidence of volume overload Minimal complaints mostly due to deconditioning [facility] Work Phone: 05-11-2023 Miscellaneous Notes Associated Problem(s): [...] coronaries: EF 40% documented in this encounter [facility] Work Phone: 05-11-2023 Evaluation + Plan note Associated Problem(s): Hypertension Optimal in office [facility] Work Phone: 05-11-2023 Evaluation + Plan note Associated Problem(s): Non-ischemic cardiomyopathy (CMS/HCC) HF improved EF 64% December 2020 MUGA (08/2020 TTE EF 30%) FC II Stage C Remains on optimal GDMT [facility] Work Phone: 05-11-2023 Evaluation + Plan note Associated Problem(s): Morbid obesity (CMS/HCC) Reviewed the merits of healthy lifestyle choices on overall cardiovascular health. [facility] Work Phone: 05-11-2023 Evaluation + Plan note Associated Problem(s): Sleep apnea Remains compliant with CPAP [facility] Work Phone: 05-11-2023 Evaluation + Plan note Associated Problem(s): Cardiac and Vasculature 2017 Cardiac cath angiographically normal coronaries: EF 40% [facility] Work Phone: 05-11-2023 History of Presen [...] She is able to walk into the [employer] without any complaints. She is actively working on weight loss. 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 Denies any change [...] contact the office if new symptoms arise. NURSERY TECHNICIAN annual follow-up Current treatment plan is effective, no change in therapy. Reviewed diet, exercise and weight control. Reviewed medications and side effects in detail. Amanuel Valladares MSN, [employer], PMHNP-[facility] Please excuse any errors in grammar or translation related to this dictation. Voice recognition software was utilized to prepare this document. documented in this encounter [facility] Work Phone: 05-11-2023 Instructions KADE Riggs - [...] contact the office if new symptoms arise. NURSERY TECHNICIAN annual follow-up documented in this encounter [facility] Work Phone: 02-24-2023 Hospital Discharg e instructions [...] Follow these instructions at home: Medicines Take iyyw-jqw-swciipk and prescription medicines only as told by [...] and water are not available, use hand hoisting laborer. Check your abscess every day for signs [...] provider. Document Revised: 04/12/2022 Document Reviewed: 04/12/2022 [employer] Patient Education 2022 [employer] 02/24/2023 13:18:12 Cellulitis, Adult Cellulitis, Adult Cellulitis [...] Follow these instructions at home: Medicines Take oduw-hmz-nwqbpbg and prescription medicines only as told by [...] such as antibiotic medicines or antihistamines. Take pwnh-zxv-xtdohqd and prescription medicines only as told by [...] provider. Document Revised: 04/15/2022 Document Reviewed: 04/15/2022 [employer] Patient Education 2022 [employer] Follow Up Care 02/24/2023 11:55:51 With:Jose Antonio Garza Address: [address] [place] [address] Business (1) When:02/27/2023 13:03:40 [facility] 02-24-2023 Evaluation + Plan note Extrac edd from: Title:ED Note Author:Rodrick Mobley PA-C te:02/24/23 Abscess (L02.91: Cutaneous a bscess, unspecified) Cellulitis (L03.90: Cellulitis, unspecified) Orders: cephalexin, 500 mg = 1 cap(s), Oral, TID, Take one capsule by mouth three times a day for ten days, # 30 cap(s), Refills(s) 0, Pharmacy: [facility], 155, cm, 02/24/23 12:00:00 EDT, Height/Length Dosing, 108.2, kg, 02/24/23 12:00:00 EDT, Weight Dosing doxycycline, 100 mg = 1 tab(s), Oral, BID, X 10 day(s), # 20 tab(s), Refills(s) 0, Pharmacy: [facility], 155, cm, 02/24/23 12:00:00 EDT, Height/Length Dosing, 108.2, kg, 02/24/23 12:00:00 EDT, [facility]05-11-2023 Evaluation note* Encounter Date Diagnosis Assessment Notes Treatment Notes Treatment Clinical Notes November, Lumbosacral radiculopathy (ICD-10 - M54.17) IrReviewed x-ray of the pelvis from 09/29/2022 and which shows healing pubic [place] fractures. Upon examination noted right SI joint [...] continue with current prescriptions and will get evtz-omp-ljmorvi Thermo patches. Follow-up in 6 weeks. Medical [...] Z13.31) PHQ reviewed score 0 negative screening [facility] Other 03-15-2023 Evaluation note* Encounter Date Diagnosis [...] with me on a as needed basis. [facility] Other 01-13-2023 Evaluation note* Encounter Date Diagnosis [...] right lower extremity. Recommended continued Tylenol and opht-pzl-iqmpgdj anti-inflammatory use. Also recommended continued calcium and vitamin D supplementation which she has already been doing. I will plan to check back with her in about 8 weeks with repeat AP pelvis, inlet, outlet views to check on the healing progress. [facility] Other 12-21-2022 Evaluation note* Encounter Date Diagnosis [...] work until we get these MRI results. [facility] Other 10-24-2022 Evaluation + Plan noteExtracted from: Title:ED Note Author:Mamadou Gonzalez DO Date: Finger laceration (S61.219A: Laceration without foreign body of unspecified finger without damage to nail, initial encounter) Orders: tetanus/diphtheria/pertussis, acel (Tdap), 0.5 mL, Injection, Intramuscular-Immunization, Once, Stop date 05/10/22 9:16:00 EDT, STAT, Start date 05/10/22 9:16:00 EDT [facility]10-24-2022 Hospital Discharge instructions Follow Up Care 05/10/2022 09:04:11 With:Jose Antonio Garza Address: [address] [place], [place] [id number]- Business (1) When:Within 3 Day(s) [facility]08-02-2022 NotePROCEDURE: XR HIPS HEATH 5V W PELVIS [...] by: JOSÉ MIGUEL SERNA Date: 2022-02-16 06:14[facility] [place] [facility] Future Appointments Appointment Date:05/25/2022 02:40:00 PM Scheduled Provider:Jose Carlos SALCEDO MD Location:[facility] Appointment Type: Established 15 Diagnostic Tests Pending * Wound Culture 05/19/22 [facility] [place] Evaluation noteNo assessment information available [facility] Work Phone: Evaluation noteNo InformationNort [employer] Other Evaluation note* Diagnosis Non-ischemic cardiomyopathy (CMS/HCC)- Primary Other primary cardiomyopathies Primary hypertension Unspecified essential hypertension Obstructive sleep apnea syndrome Obstructive sleep apnea (adult) (pediatric) Morbid obesity (CMS/HCC) Morbid obesity Hypertension, unspecified type SOB (shortness of breath) on exertion Shortness of breath documented in this encounter [facility] Work Phone: Evaluation note* Diagnosis Pre-operative clearance- Primary Unspecified pre-operative examination Non-ischemic cardiomyopathy (Multi) Other primary cardiomyopathies Primary hypertension Unspecified essential hypertension Morbid obesity (Multi) Morbid obesity documented in this encounter [facility] Work Phone: [facility] general Narrative - Reported* Type Description Date Medical History RA Surgical History hysterectomy Surgical History cholecystectomy Surgical History appendectomy Surgical History left foot surgery [facility] Other [facility] general Narrative - Reported* Type Description Date Medical History RA Surgical History hysterectomy Surgical History cholecystectomy Surgical History appendectomy Surgical History left foot surgery Hospitalization History see surg HX [facility] Other Hospital course Narrative No data available for this section [facility] No data available for this section [facility] [place] Progress note No data available for this section [facility] (n[facility]ative)* Consultation (Routine) - Authorized Specialty Diagnoses / Procedures Referred By Reema rodriguez Referred To Contact Cardiology Diagnoses Non-ischemic cardiomyopathy (CMS/HCC) Primary hypertension Obstructive sleep apnea syndrome Procedures Follow Up In Cardiology Amanuel Valladares APRN-CNP [address] [facility] [address] [place] [address] Referral ID Status Reason Start Date Expiration Date V isits Requested Visits Authorized [id number] Authorized 05/11/2023 05/10/2024 1 1 T [facility] Work Phone: Summary Purpose Family History No [...] clearance Procedures ECG 12 Lead Amanuel Valladares, [employer] [address] [facility] [address] [place] [address] Referral ID Status Reason Start Date Expiration Date V isits Requested Visits Authorized [id number] Authorized 11/10/2023 11/09/2024 1 1 Reason Aqua therapy - evalu ate and treat Diagnosis 1 Lumbosacral radiculo vanessa (M54.17) Referral Organization [facility] Referring Provider First Name Nancy Referring Provider Last Name Kapadia Referring Provider Specialty Nurse Pract itioner Referred Organization [facility] Referred Address [address] [place], [place],[address] Referred Provider Specialty Physical The rapist Referral Priority Routine Reason evaluate for Si inje ction Diagnosis 1 Lumbosacral radiculo vanessa (M54.17) Referral Organization [facility] Referring Provider First Name Nancy Referring Provider Last Name Kapadia Referring Provider Specialty Nurse Pract itioner Referred Organization [facility] Referred Provider Maxi Glez Referred Address [address] [facility] [address] ,[place], [place],[address] Referred Provider Specialty Pain Medicin e Referral Priority Routine Additional Source Comments INFORMATION SOURCE (unrecogn ized section and content) DATE CREATED AUTHOR 01/11/2018 [facility] DATE CREATED AUTHOR AUTHOR'S ORGANIZ ATION 08/11/2018 [facility] DATE CREATED AUTHOR AUTHOR'S ORGANIZ ATION 10/20/2018 [facility] DATE CREATED AUTHOR AUTHOR'S ORGANIZ ATION 10/21/2018 [facility] ical Center DATE CREATED AUTHOR AUTHOR'S ORGANIZ ATION 01/28/2021 [facility] DATE CREATED AUTHOR AUTHOR'S ORGANIZ ATION 03/19/2022 [facility] DATE CREATED AUTHOR AUTHOR'S ORGANIZ ATION 11/19/2022 [facility] pital DATE CREATED AUTHOR AUTHOR'S ORGANIZ ATION 08/01/2023 [facility] d[facility] Special[facility] EPIC DATE CREATED AUTHOR AUTHOR'S ORGANIZ ATION 10/07/2023 [facility] DATE CREATED AUTHOR AUTHOR'S ORGANIZ ATION 11/12/2023 [facility] DATE CREATED AUTHOR AUTHOR'S ORGANIZ ATION 11/24/2023 [facility] Care Teams (unrecognized sec tion and [...] Kyle Call II, MD Attending Provider Active Metal Fitter Relationship Specialty Start Date End Date Jose Antonio Garza MD [address] [id number] PCP - General 09/04/20 Team Status: Inactive Member Role Status Dates Jose Antonio Garza MD Primary Care Provider Active Stef Molina Jr, MD Emergency Provider Active Metal Fitter Relationship Specialty Start Date End Date Jose Antonio Garza MD [address] [place] [address] PCP - General 09/04/20 Goals (unrecognized section [...] clearance Procedures ECG 12 Lead Amanuel Valladares, [employer] [address] [facility] 2, [address] [address] Referral ID Status Reason Start Date Expiration Date V isits Requested Visits Authorized [id number] Authorized 11/10/2023 11/09/2024 1 1 FOR RECORDS [...] BE BASED ON THE PRIMARY CLINICAL RECORDS. [facility]. provides no warranty or guarantee of the accuracy or completeness of information in this document.
--- NOTE | 2023-12-30 12:33 | P.HP_ITS ---
HPI H&P: HPI History of Present Illness Chief complaint: POST OPERATIVE COMPLICATIONS Narrative: Pt Presented to the ER with increasing pain in back and clear drainage from wound and significant fatigue but not dyspnea. elevated white blood cell count in the emergency room. With drainage and leukocytosis and tachycardia patient was admitted. Case was discussed with surgeon recommended least 2-day stay for IV antibiotics Plan I saw patient up on the medical surgical floor, patient. Fatigued. No respiratory distress. Her biggest concern is the nausea. Opioid HPI Opioid Management Most Recent Pain and Opioid Data: Last Pain Scale 4 12/30/23 14:00 Last Pain Assessment 12/30/23 14:00 Last MAR Pain Assessment 12/30/23 13:14 Last ORT Total Score 0 12/30/23 11:08 Last ORT Risk Category Low Risk 12/30/23 11:08 Review of Systems ROS Status of ROS 10 or more systems reviewed and unremark able except as noted in history and below Constitutional Denies: fever or chills PFSH [facility] Medical History (Updated 12/30/23 @ 16:50 by Ti Garza MD) History of blood transfusion ?Z92.89 - Personal history of other medical treatment (ICD-10) Heartburn ?R12 - Heartburn (ICD-10) Pelvis fracture ?S32.9XXA - Fracture of unspecified parts of lumbosacral spine and pelvis, initial encounter for closed fracture (ICD-10) Rheumatoid arthritis ?M06.9 - Rheumatoid arthritis, unspecified (ICD-10) Arthritis ?M19.90 - Unspecified osteoarthritis, unspecified site (ICD-10) Plantar fasciitis ?M72.2 - Plantar fascial fibromatosis (ICD-10) Fibroma ?D21.9 - Benign neoplasm of connective and other soft tissue, unspecified (ICD-10) Vertigo ?R42 - Dizziness and giddiness (ICD-10) Diverticulosis ?K57.90 - Diverticulosis of intestine, part unspecified, without perforation or abscess without bleeding (ICD-10) Chronic combined systolic and diastolic heart failure ?I50.42 - Chronic combined systolic (congestive) and diastolic (congestive) heart failure (ICD-10) Snoring ?R06.83 - Snoring (ICD-10) Cardiomyopathy ?I42.9 - Cardiomyopathy, unspecified (ICD-10) Sleep apnea ?G47.30 - Sleep apnea, unspecified (ICD-10) Calcaneal fracture ?S92.009A - Unspecified fracture of unspecified calcaneus, initial encounter for closed fracture (ICD-10) Foot pain ?M79.673 - Pain in unspecified foot (ICD-10) Achilles tendinitis ?M76.60 - Achilles tendinitis, unspecified leg (ICD-10) Left ventricular systolic dysfunction ?I51.9 - Heart disease, unspecified (ICD-10) Tinea pedis ?B35.3 - Tinea pedis (ICD-10) Hematuria ?R31.9 - Hematuria, unspecified (ICD-10) Flank pain ?R10.9 - Unspecified abdominal pain (ICD-10) Postherpetic polyneuropathy ?B02.23 - Postherpetic polyneuropathy (ICD-10) Abdominal pain ?R10.9 - Unspecified abdominal pain (ICD-10) Epigastric pain ?R10.13 - Epigastric pain (ICD-10) Eczema ?L30.9 - Dermatitis, unspecified (ICD-10) Wrist pain ?M25.539 - Pain in unspecified wrist (ICD-10) Lumbar radiculopathy ?M54.16 - Radiculopathy, lumbar region (ICD-10) Diverticulitis ?K57.92 - Diverticulitis of intestine, part unspecified, without perforation or abscess without bleeding (ICD-10) Hip pain ?M25.559 - Pain in unspecified hip (ICD-10) Knee pain ?M25.569 - Pain in unspecified knee (ICD-10) Furuncle of axilla ?L02.429 - Furuncle of limb, unspecified (ICD-10) Hip strain ?S76.019A - Strain of muscle, fascia and tendon of unspecified hip, initial encounter (ICD-10) Bronchitis ?J40 - Bronchitis, not specified as acute or chronic (ICD-10) COVID-19 ?U07.1 - COVID-19 (ICD-10) Hypertension ?I10 - Essential (primary) hypertension (ICD-10) Nonischemic cardiomyopathy ?I42.8 - Other cardiomyopathies (ICD-10) Heart failure ?I50.9 - Heart failure, unspecified (ICD-10) Back pain ?M54.9 - Dorsalgia, unspecified (ICD-10) Lumbar spondylosis ?M47.816 - Spondylosis without myelopathy or radiculopathy, lumbar region (ICD-10) Lumbar stenosis with neurogenic claudication ?M48.062 - Spinal stenosis, lumbar region with neurogenic claudication (ICD- 10) Surgical History (Updated 12/30/23 @ 11:05 by Marina Fraire) History of lumbar fusion ?Z98.1 - Arthrodesis status (ICD-10) History of cholecystectomy ?Z90.49 - Acquired absence of other specified parts of digestive tract (ICD- 10) History of appendectomy ?Z90.49 - Acquired absence of other specified parts of digestive tract (ICD- 10) History of hysterectomy ?Z90.710 - Acquired absence of both cervix and uterus (ICD-10) History of bladder surgery ?Z98.890 - Other specified postprocedural states (ICD-10) H/O foot surgery ?Z98.890 - Other specified postprocedural states (ICD-10) Family History (Updated 12/30/23 @ 11:05 by Marina Fraire) Mother Family history of CHF (congestive heart failure) Other Family history of aneurysm Family history of diabetes mellitus Family history of hypertension Family history of myocardial infarction Family history of ovarian cancer Family history of stroke Social History (Updated 12/30/23 @ 11:07 by Marina Fraire) Within the past year, how often did you have a drink containing alcohol: never Score interpretation: A score less than 3 is consistent with normal alcohol consumption. 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 Highest level of school completed/degree received: high school graduate Are you now , , , , never or living with a partner: In a typical week, how many times do you talk on the telephone with family, friends, or neighbors: twice per week How often do you get together with friends or relatives: twice per week How often do you attend orthodoxy or bahai services: never Do you belong to any clubs or organizations such as orthodoxy groups unions, fraternal or athletic groups, or school groups: no Total score: 2 Score interpretation: A score of greater than or equal to 2 indicates the lowest level of social isolation. Little interest or pleasure in doing things: not at all Feeling down, depressed, or hopeless: not at all Feel stressed/tense/nervous/anxious/difficulty sleeping: not at all Meds Home Medications and Allergies Home Medications ?Medication ?Instructions ?Recorded ?Confirmed ?Type furosemide 40 mg tablet 40 mg PO DAILY 12/19/22 12/30/23 History sacubitril 49 mg-valsartan 51 mg 1 tab PO DAILY 12/19/22 12/30/23 History tablet (Entresto) leflunomide 20 mg tablet 20 mg PO DAILY 11/22/23 12/30/23 History spironolactone 25 mg tablet 25 mg PO DAILY 11/22/23 12/30/23 History carvedilol 25 mg tablet 25 mg PO Q12H #60 tabs 12/05/23 12/30/23 Rx Allergies Allergy/AdvReac Type Severity Reaction Status Date / Time clobetasol [From Embeline] Allergy Severe shortness Verified 12/09/23 09:10 of breath sulfamethoxazole Allergy Severe Hives Verified 12/09/23 09:10 [From Bactrim] trimethoprim [From Bactrim] Allergy Severe Hives Verified 12/09/23 09:10 etanercept [From Enbrel] Allergy CHF Verified 12/09/23 09:10 methotrexate Allergy CHF Verified 12/09/23 09:10 Exam Constitutional Vital Signs, click to edit/add: Last Vital Signs Temp 98.2 F 12/30/23 11:08 Pulse 92 H 12/30/23 11:08 Resp 16 12/30/23 11:08 BP 110/73 12/30/23 11:08 Pulse Ox 95 12/30/23 11:08 O2 Del Method Room Air 12/30/23 11:08 Documenting provider has reviewed patient's vital signs: yes Common normals: no apparent distress Respiratory Common normals: normal respiratory effort, no retractions and clear to auscultation bilaterally Cardio Common normals: no JVD and regular rate Back & Pelvis Common normals: no CVA tenderness (Wound on back with clear drainage) Extremity Common normals: normal to inspection; limited ROM (Poor range of motion due to back pain) Neuro Common normals: moves all extremities and no focal motor deficits Results Labs Labs: Short CBC 12/30/23 Range/Units 08:45 WBC 18.1 H (4.0-11.0) 10^3/uL Hgb 10.8 L (12.0-16.0) g/dL Hct 32.7 L (36.0-48.0) % Plt Count 232 (150-450) 10^3/uL [facility] 12/30/23 08:45 Sodium 135 L Potassium 3.2 L Chloride 96 L Carbon Dioxide 27.0 BUN 21.0 H Creatinine 1.19 H Glucose 131 H Calcium 8.8 Assessment and Plan Assessment and Plan (1) Cellulitis: (2) Lumbar spondylosis: (3) Lumbar stenosis with neurogenic claudication: (4) Rheumatoid arthritis: (5) Chronic combined systolic and diastolic heart failure: (6) Nonischemic cardiomyopathy: (7) Sleep apnea: (8) Acute renal failure: (9) Severe sepsis: (10) Wound, open, back with complication: (11) Hypokalemia: (12) Hypomagnesemia: (13) Acute UTI: Plan Sinus tachycardia, leukocytosis, positive lactate, positive procalcitonin C, acute renal failure (baseline 0.74 creatinine up to 1.19 equals 160.8% above baseline) due to dehydration due to cellulitis and resulting in severe sepsis. Start patient on antibiotics, blood cultures pending, check UA for alternate source for the leukocytosis. Surgery recommended Ancef, will add levofloxacin. Serial labs. With severe sepsis, unable to give aggressive fluid resuscitation due to Hx Combined chf with cardiomyopathy-will check BNP, follow-up with that in the morning. Will follow serial sedimentation rate and CRP. Leukocytosis-secondary to the above, also UA is positive. This could be a source of the sepsis as well.-Blood and urine cultures pending Iron deficiency anemia-monitor daily Hyponatremia likely secondary to dehydration-IV fluids with normal saline Hypokalemia monitor daily and supplement Hypomagnesemia-supplement and monitor daily Acute renal failure-baseline creatinine .74, admission creatinine of 1.19, that would be 160.8% above baseline. IV fluids. Reassess labs in AM. Hypertension with Chronic Combined CHF due to nonischemic cardiomyopathy - cont with home meds except the spironolactone And lasix - if fluid status improves will SL Sleep apnea - encourage to bring in home machine Admission status: Patient scented to the ER with severe sepsis as outlined above-medically necessary treatment will span more than 2 midnights. Admit patient to inpatient status.
--- NOTE | 2023-12-30 13:03 | PC.NURSE ---
Patient stated she has a headache of 7/10 pain. She is extremely nauseous and had yellow emesis. PRN tramadol and zofran given. Dr. Garza notified.
[2023-12-30] MEDS: POTASSIUM CHLORIDE 10 MEQ ER TABLET 20 MEQ PO ×2 (13:13→20:29)
[2023-12-30] MEDS: KETOROLAC TROMETHAMINE 30 MG/ML VIAL IVP (13:14)
[2023-12-30] MEDS: 0.9 % SODIUM CHLORIDE 1,000 ML 100 ML IV (13:15)
[2023-12-30] MEDS: ONDANSETRON PF 4 MG/2 ML VIAL IV (13:31)
[2023-12-30 13:32] LABS: Bilirubin Urine NEGATIVE (NEGATIVE); Blood Urine NEGATIVE (NEGATIVE); Clarity Urine CLEAR (CLEAR); Color Urine YELLOW (YELLOW); Glucose Urine UA NEGATIVE (NEGATIVE); Ketones Urine NEGATIVE (NEGATIVE); Leukocyte Esterase Urine SMALL (NEGATIVE); Nitrite Urine NEGATIVE (NEGATIVE); Protein Urine NEGATIVE (NEG/TRACE); Specific Gravity Urine 1.025 (1.005-1.025); Urobilinogen Urine 0.2 EU/dL (0.2-1.0); pH Urine 5.5 (5.0-9.0)
[2023-12-30 13:42] LABS: Bacteria Urine MODERATE #/HPF (NONE SEEN); Mucus Urine NONE SEEN (NONE SEEN); RBC Urine NONE SEEN #/HPF (0-2); Squamous Epithelial Cell Urine FEW #/LPF (NONE/RARE); WBC Urine 50-75 #/HPF (NONE SEEN)
[2023-12-30 13:43] LABS: Urine Culture Indicated ALREADY ORDERED
[2023-12-30 13:45] LABS: C Reactive Protein 24.84 mg/dL (<=0.50); Magnesium 1.7 mg/dL (1.8-2.4)
[2023-12-30 13:56] LABS: Lactate/Lactic Acid 2.4 mmol/L (0.4-2.0)
[2023-12-30 14:05] LABS: Erythrocyte Sedimentation Rate 76 mm/hr (<=30)
[2023-12-30] MEDS: LEVOFLOXACIN IN DEXTROSE 5 % 750 MG/150 ML IV.SOLN 100 MG IV (14:50)
--- NOTE | 2023-12-30 15:08 | P.ORCN_ITS ---
History of Present Illness HPI Consult date: 12/30/23 Chief complaint: POST OPERATIVE COMPLICATIONS Narrative: Patient is a 58-year-old female that is s/p L4-5 decompression and L4-5 posterior fusion on 12/02/2023 that presented to the ED today with concerns of a headache and drainage from her wound. I was contacted by the ED physician with concerns at the amount of clear/yellowish drainage from the wound and a WBC of 18. Patient has been afebrile and denies fevers, night sweats, or chills. She has been having intermittent headaches with nausea/vomiting postop. The patient denies low back pain or pain to her lower extremities. She denies any lower extremity weakness. She denies bowel or bladder incontinence. [facility] Medical History (Updated 12/30/23 @ 13:04 by Ti Garza MD) History of blood transfusion ?Z92.89 - Personal history of other medical treatment (ICD-10) Heartburn ?R12 - Heartburn (ICD-10) Pelvis fracture ?S32.9XXA - Fracture of unspecified parts of lumbosacral spine and pelvis, initial encounter for closed fracture (ICD-10) Rheumatoid arthritis ?M06.9 - Rheumatoid arthritis, unspecified (ICD-10) Arthritis ?M19.90 - Unspecified osteoarthritis, unspecified site (ICD-10) Plantar fasciitis ?M72.2 - Plantar fascial fibromatosis (ICD-10) Fibroma ?D21.9 - Benign neoplasm of connective and other soft tissue, unspecified (ICD-10) Vertigo ?R42 - Dizziness and giddiness (ICD-10) Diverticulosis ?K57.90 - Diverticulosis of intestine, part unspecified, without perforation or abscess without bleeding (ICD-10) Chronic combined systolic and diastolic heart failure ?I50.42 - Chronic combined systolic (congestive) and diastolic (congestive) heart failure (ICD-10) Snoring ?R06.83 - Snoring (ICD-10) Cardiomyopathy ?I42.9 - Cardiomyopathy, unspecified (ICD-10) Sleep apnea ?G47.30 - Sleep apnea, unspecified (ICD-10) Calcaneal fracture ?S92.009A - Unspecified fracture of unspecified calcaneus, initial encounter for closed fracture (ICD-10) Foot pain ?M79.673 - Pain in unspecified foot (ICD-10) Achilles tendinitis ?M76.60 - Achilles tendinitis, unspecified leg (ICD-10) Left ventricular systolic dysfunction ?I51.9 - Heart disease, unspecified (ICD-10) Tinea pedis ?B35.3 - Tinea pedis (ICD-10) Hematuria ?R31.9 - Hematuria, unspecified (ICD-10) Flank pain ?R10.9 - Unspecified abdominal pain (ICD-10) Postherpetic polyneuropathy ?B02.23 - Postherpetic polyneuropathy (ICD-10) Abdominal pain ?R10.9 - Unspecified abdominal pain (ICD-10) Epigastric pain ?R10.13 - Epigastric pain (ICD-10) Eczema ?L30.9 - Dermatitis, unspecified (ICD-10) Wrist pain ?M25.539 - Pain in unspecified wrist (ICD-10) Lumbar radiculopathy ?M54.16 - Radiculopathy, lumbar region (ICD-10) Diverticulitis ?K57.92 - Diverticulitis of intestine, part unspecified, without perforation or abscess without bleeding (ICD-10) Hip pain ?M25.559 - Pain in unspecified hip (ICD-10) Knee pain ?M25.569 - Pain in unspecified knee (ICD-10) Furuncle of axilla ?L02.429 - Furuncle of limb, unspecified (ICD-10) Hip strain ?S76.019A - Strain of muscle, fascia and tendon of unspecified hip, initial encounter (ICD-10) Bronchitis ?J40 - Bronchitis, not specified as acute or chronic (ICD-10) COVID-19 ?U07.1 - COVID-19 (ICD-10) Hypertension ?I10 - Essential (primary) hypertension (ICD-10) Nonischemic cardiomyopathy ?I42.8 - Other cardiomyopathies (ICD-10) Heart failure ?I50.9 - Heart failure, unspecified (ICD-10) Back pain ?M54.9 - Dorsalgia, unspecified (ICD-10) Lumbar spondylosis ?M47.816 - Spondylosis without myelopathy or radiculopathy, lumbar region (ICD-10) Lumbar stenosis with neurogenic claudication ?M48.062 - Spinal stenosis, lumbar region with neurogenic claudication (ICD- 10) Surgical History (Updated 12/30/23 @ 11:05 by Marina Fraire) History of lumbar fusion ?Z98.1 - Arthrodesis status (ICD-10) History of cholecystectomy ?Z90.49 - Acquired absence of other specified parts of digestive tract (ICD- 10) History of appendectomy ?Z90.49 - Acquired absence of other specified parts of digestive tract (ICD- 10) History of hysterectomy ?Z90.710 - Acquired absence of both cervix and uterus (ICD-10) History of bladder surgery ?Z98.890 - Other specified postprocedural states (ICD-10) H/O foot surgery ?Z98.890 - Other specified postprocedural states (ICD-10) Family History (Updated 12/30/23 @ 11:05 by Marina Fraire) Mother Family history of CHF (congestive heart failure) Other Family history of aneurysm Family history of diabetes mellitus Family history of hypertension Family history of myocardial infarction Family history of ovarian cancer Family history of stroke Social History (Updated 12/30/23 @ 11:07 by Marina Fraire) Within the past year, how often did you have a drink containing alcohol: never Score interpretation: A score less than 3 is consistent with normal alcohol consumption. 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 Highest level of school completed/degree received: high school graduate Are you now , , , , never or living with a partner: In a typical week, how many times do you talk on the telephone with family, friends, or neighbors: twice per week How often do you get together with friends or relatives: twice per week How often do you attend judaism or spiritism services: never Do you belong to any clubs or organizations such as judaism groups unions, fraternal or athletic groups, or school groups: no Total score: 2 Score interpretation: A score of greater than or equal to 2 indicates the lowest level of social isolation. Little interest or pleasure in doing things: not at all Feeling down, depressed, or hopeless: not at all Feel stressed/tense/nervous/anxious/difficulty sleeping: not at all Meds Home Medications and Allergies Home Medications ?Medication ?Instructions ?Recorded ?Confirmed ?Type furosemide 40 mg tablet 40 mg PO DAILY 12/19/22 12/30/23 History sacubitril 49 mg-valsartan 51 mg 1 tab PO DAILY 12/19/22 12/30/23 History tablet (Entresto) leflunomide 20 mg tablet 20 mg PO DAILY 11/22/23 12/30/23 History spironolactone 25 mg tablet 25 mg PO DAILY 11/22/23 12/30/23 History carvedilol 25 mg tablet 25 mg PO Q12H #60 tabs 12/05/23 12/30/23 Rx Allergies Allergy/AdvReac Type Severity Reaction Status Date / Time clobetasol [From Embeline] Allergy Severe shortness Verified 12/09/23 09:10 of breath sulfamethoxazole Allergy Severe Hives Verified 12/09/23 09:10 [From Bactrim] trimethoprim [From Bactrim] Allergy Severe Hives Verified 12/09/23 09:10 etanercept [From Enbrel] Allergy CHF Verified 12/09/23 09:10 methotrexate Allergy CHF Verified 12/09/23 09:10 Exam Narrative Exam Narrative: On exam the patient is in no distress, lying on her left side in the hospital bed, alert and oriented x 3. On inspection of her vertical surgical lumbar wound there is surrounding erythema and slight dehiscence midway down the wound to the bottom. No drainage noted on exam, some straw-colored drainage noted on dressing. No purulent drainage or malodorous smell from the wound. Lumbar spine is nontender. 5/5 strength to bilateral lower extremities. Sensation intact to light touch bilateral lower extremities. Constitutional Vital Signs, click to edit/add: Last Vital Signs Temp 98.2 F 12/30/23 11:08 Pulse 92 H 12/30/23 11:08 Resp 16 12/30/23 11:08 BP 110/73 12/30/23 11:08 Pulse Ox 95 12/30/23 11:08 O2 Del Method Room Air 12/30/23 11:08 Results Labs Labs: Abnormal lab results 12/30/23 12/30/23 12/30/23 Range/Units 08:45 12:53 13:09 WBC 18.1 H (4.0-11.0) 10^3/uL RBC 3.57 L (4.20-5.40) 10^6/uL Hgb 10.8 L (12.0-16.0) g/dL Hct 32.7 L (36.0-48.0) % Neut % (Auto) 82.7 H (43.0-75.0) % Lymph % (Auto) 5.9 L (20.5-60.0) % Eos % (Auto) 0.1 L (0.9-7.0) % Neut # (Auto) 15.0 H (1.4-6.5) 10^3/uL Lymph # (Auto) 1.1 L (1.2-3.8) 10^3/uL [place] # (Auto) 1.8 H (0.3-0.8) 10^3/uL Abs Immat Gran (auto) 0.13 H (0.00-0.03) 10^3/uL Imm/Tot Granulo (auto) 0.7 H (0.0-0.5) % ESR 76 H (<=30) mm/hr Sodium 135 L (136-145) mmol/L Potassium 3.2 L (3.5-5.1) mmol/L Chloride 96 L (98-107) mmol/L BUN 21.0 H (7.0-18.0) mg/dL Creatinine 1.19 H (0.55-1.02) mg/dL Est GFR ( Amer) 57 L (>=60) Est GFR (Non-Af Amer) 47 L (>=60) Glucose 131 H (74-106) mg/dL Lactate 2.1 H 2.4 H* (0.4-2.0) mmol/L Magnesium 1.7 L (1.8-2.4) mg/dL C-Reactive Protein 24.84 H (<=0.50) mg/dL Procalcitonin 2.15 H (0.00-0.50) ng/mL Ur Leukocyte Esterase Small A (NEGATIVE) Urine WBC 50-75 A (NONE SEEN) #/HPF Ur Squamous Epith Cells Few A (NONE/RARE) #/LPF Urine Bacteria Moderate A (NONE SEEN) #/HPF H & H 12/30/23 Range/Units 08:45 Hgb 10.8 L (12.0-16.0) g/dL Hct 32.7 L (36.0-48.0) % All other labs normal. Assessment and Plan Assessment and Plan (1) Cellulitis: (2) Lumbar spondylosis: (3) Lumbar stenosis with neurogenic claudication: (4) Rheumatoid arthritis: (5) Chronic combined systolic and diastolic heart failure: (6) Nonischemic cardiomyopathy: (7) Sleep apnea: (8) Acute renal failure: (9) Severe sepsis: (10) Wound, open, back with complication: (11) Hypokalemia: Plan The patient is 4 weeks s/p L4-5 decompression and posterior fusion with concerns for wound infection from the ED. The patient's care and plan discussed with Dr. Lawson. -Admitted to medicine -WBC 18 -IV Ancef x 48 hours, discharge on p.o. antibiotics -Reinforce dressing, change daily or as needed while wound is still draining. -Keep scheduled postop appointment on January 06, 2024 at [facility].
[2023-12-30] MEDS: METOCLOPRAMIDE HCL 10 MG/2 ML VIAL IVP (17:00)
--- NOTE | 2023-12-30 17:15 | MR_ITS ---
The [address] [address] Patient Name: FELICITY PHILLIPS MRN: [id number] date: 1965 Sex: F Assigned Patient Location: [place] Current Patient Location: [place] Accession/Order Number: [id number] Exam Date: 12/30/2023 19:30 Report Date: 12/30/2023 21:12 At the request of: KJ MCCLURE Procedure: MR lumbar spine wo con EXAM: MR lumbar spine wo con; [id number] COMPARISON: None. CLINICAL STATEMENT: Eval for CSF leak TECHNIQUE: Multiplanar and multisequence MR images of the lumbar spine were obtained without contrast. FINDINGS: Status post L4 laminectomy and L4-L5 posterior lumbar fusion. Fluid collection at the laminectomy site measuring 4.8 x 2.7 x 3.8 cm (series 4001 image 8 and series 10,001 image 24). The fluid collection compresses the thecal sac resulting in severe spinal canal narrowing at the L4-L5 disc space. Fluid collection extends to the skin surface. No significant spinal canal narrowing elsewhere. Moderate/severe bilateral foraminal narrowing at L4-L5. Grade 1 versus 2 anterolisthesis of L4 on L5 measuring 9 mm is slightly worse compared with 06/29/2023 where the anterolisthesis measured 8 mm. MR/MR lumbar spine wo con Impression: 1. Fluid collection in the posterior paraspinous soft tissues at the L4-L5 fusion with an approximate volume of 26 mL. The fluid collection compresses the adjacent thecal sac resulting in severe spinal canal narrowing at that level. Differential includes postoperative seroma versus CSF leak. 2. Anterolisthesis at the fused L4-L5 appear slightly worse compared with 2022. Electronically authenticated by: BRIAN MINOR Date: 12/30/2023 21:12
[2023-12-30] MEDS: MAGNESIUM OXIDE 400 MG TABLET PO (20:29)
[2023-12-31] MEDS: CEFAZOLIN SODIUM/DEXTROSE,ISO 1 GM/50 ML IV.SOLN IV (01:52)
[2023-12-31 03:42] VITALS: BP 95/61; PULSE 117; TEMP 38.9; O2SAT 91
[2023-12-31] MEDS: 0.9 % SODIUM CHLORIDE 1,000 ML 100 ML IV ×2 (03:57→12:50)
[2023-12-31] MEDS: ACETAMINOPHEN 500 MG TABLET 1000 MG PO (03:57)
[2023-12-31] MEDS: METOCLOPRAMIDE HCL 10 MG/2 ML VIAL IVP ×2 (04:02→11:28)
[2023-12-31 04:15] VITALS: O2SAT 92
[2023-12-31 04:21] LABS: A. calcoaceticus-baumannii Cpx NOT DETECTED (NOT DETECTE); Bacteroides fragilis NOT DETECTED (NOT DETECTE); Candida albicans NOT DETECTED (NOT DETECTE); Candida auris NOT DETECTED (NOT DETECTE); Candida glabrata NOT DETECTED (NOT DETECTE); Candida krusei NOT DETECTED (NOT DETECTE); Candida parapsilosis NOT DETECTED (NOT DETECTE); Candida tropicalis NOT DETECTED (NOT DETECTE); Cryptococcus neoformans/gattii NOT DETECTED (NOT DETECTE); Enterobacter cloacae complex NOT DETECTED (NOT DETECTE); Enterobacterales NOT DETECTED (NOT DETECTE); Enterococcus faecalis NOT DETECTED (NOT DETECTE); Enterococcus faecium NOT DETECTED (NOT DETECTE); Haemophilus influenzae NOT DETECTED (NOT DETECTE); Klebsiella aerogenes NOT DETECTED (NOT DETECTE); Klebsiella pneumoniae group NOT DETECTED (NOT DETECTE); Listeria monocytogenes NOT DETECTED (NOT DETECTE); Neisseria meningitidis NOT DETECTED (NOT DETECTE); Proteus spp. NOT DETECTED (NOT DETECTE); Pseudomonas aeruginosa NOT DETECTED (NOT DETECTE); Salmonella spp. NOT DETECTED (NOT DETECTE); Serratia marcescens NOT DETECTED (NOT DETECTE); Staphylococcus epidermidis NOT DETECTED (NOT DETECTE); Staphylococcus lugdunensis NOT DETECTED (NOT DETECTE); Stenotrophomonas maltophilia NOT DETECTED (NOT DETECTE); Streptococcus agalactiae NOT DETECTED (NOT DETECTE); Streptococcus pneumoniae NOT DETECTED (NOT DETECTE); Streptococcus pyogenes NOT DETECTED (NOT DETECTE); Streptococcus spp. NOT DETECTED (NOT DETECTE)
[2023-12-31 04:43] LABS: Basophils Percent Auto 0.3 % (0.2-2.0); Eosinophils Percent Auto 0.4 % (0.9-7.0); Hematocrit 29.3 % (36.0-48.0); Hemoglobin 9.8 g/dL (12.0-16.0); Immature Granulocytes Abs Auto 0.05 10^3/uL (0.00-0.03); Immature Granulocytes Pct Auto 0.5 % (0.0-0.5); Lymphocytes Absolute Auto 0.4 10^3/uL (1.2-3.8); Lymphocytes Percent Auto 3.8 % (20.5-60.0); Mean Corpuscular HGB Conc 33.4 g/dL (29.9-35.2); Mean Corpuscular Volume 89.6 fL (81.0-99.0); Mean Platelet Volume 10.4 fL (9.5-13.5); Monocytes Absolute Auto 0.6 10^3/uL (0.3-0.8); Monocytes Percent Auto 6.1 % (1.7-12.0); Neutrophils Percent Auto 88.9 % (43.0-75.0); Platelet Count 188 10^3/uL (150-450); Red Blood Count 3.27 10^6/uL (4.20-5.40); Red Cell Distribution Width 12.8 % (11.0-15.0); White Blood Count 10.1 10^3/uL (4.0-11.0)
[2023-12-31 04:57] LABS: Erythrocyte Sedimentation Rate 105 mm/hr (<=30)
[2023-12-31 05:04] LABS: Anion Gap 12.3; BUN Creatinine Ratio 21.1; C Reactive Protein 26.79 mg/dL (<=0.50); Calcium 8.7 mg/dL (8.5-10.1); Carbon Dioxide 26.2 mmol/L (21.0-32.0); Chloride 97 mmol/L (98-107); Estimated GFR (African America 50 (>=60); Estimated GFR (Non-African Ame 41 (>=60); Glucose 116 mg/dL (74-106); Magnesium 1.5 mg/dL (1.8-2.4); Potassium 3.5 mmol/L (3.5-5.1); Sodium 132 mmol/L (136-145)
[2023-12-31 05:44] LABS: Source BLOOD
[2023-12-31 05:48] LABS: mecA/C and MREJ (MRSA) NOT DETECTED (NOT DETECTE)
[2023-12-31 05:54] LABS: Staphylococcus spp. DETECTED (NOT DETECTE)
--- NOTE | 2023-12-31 07:35 | P.DS_ITS ---
DS: Providers Provider Date of admission: 12/30/23 10:54 Primary care physician: Ti Garza MD Consults: 12/30/23 12:27 Consult to Pharmacy Routine Consulting Provider: Reason for consultation: Please [place] me when Med Rec is Updated Has provider been notified: No Occupational Therapy Eval and Treat Routine Reason for consultation: Only if needed for Rehab Has provider been notified: No Physical Therapy Eval and Treat Routine Reason for consultation: Eval and Treat Has provider been notified: No 12/30/23 13:23 Consult to Orthopedic Surgery Routine Consulting Provider: Ti Garza Reason For Exam: Reason for consultation: Notify Dr Lawson Has provider been notified: No Consult to Wound Care Routine Consulting Provider: Brenton Carter Reason for consultation: wound spine Has provider been notified: No DS: Diagnosis Discharge Diagnosis (1) Cellulitis: (2) Lumbar spondylosis: (3) Lumbar stenosis with neurogenic claudication: (4) Rheumatoid arthritis: (5) Chronic combined systolic and diastolic heart failure: (6) Nonischemic cardiomyopathy: (7) Sleep apnea: (8) Acute renal failure: (9) Severe sepsis: (10) Wound, open, back with complication: (11) Hypokalemia: (12) Hypomagnesemia: (13) Acute UTI: Plan Admission findings: Sinus tachycardia, leukocytosis, positive lactate, positive procalcitonin C, acute renal failure (baseline 0.74 creatinine up to 1.19 equals 160.8% above baseline) due to dehydration due to cellulitis with seroma and po ssible cerebrospinal fluid leak and resulting in severe sepsis. Complicated by acute UTI white blood cell count improving at the time of transfer, fever spike the day of transfer Leukocytosis-secondary to the above, also UA is positive. Improving at the time of transfer Iron deficiency anemia-at the time of discharge, follow-up on occult blood, not collected prior to transfer Hyponatremia likely secondary to dehydration-deteriorate at the time of transfer, giving fluid bolus this morning at the time of transfer Hypokalemia monitor daily improved on the day of transfer Hypomagnesemia-deteriorated on the day of transfer, increase supplementation Acute renal failure-baseline creatinine .74, admission creatinine of 1.19, deteriorated on the day of transfer up to 1.33, resulting in acute renal failure with 179.7% above baseline. Getting fluid bolus on the day of transfer Hypertension with Chronic Combined CHF due to nonischemic cardiomyopathy - hypotensive overnight likely secondary to the above-fluid bolus this morning Sleep apnea - encourage to bring in home machine Admission status: Patient scented to the ER with severe sepsis as outlined above-medically necessary treatment will span more than 2 midnights. Admit patient to inpatient status. ? DS: Summary Hospital Course Hospital Course: Patient had spinal surgery approximately 1 month ago, presented to the emergency room with increasing weakness, fatigue, headache, nausea and vomiting, fluid leaking from previous surgical site. Case was discussed with her surgeon who recommended admission for IV antibiotics based on positive lactate and leukocytosis. We expanded her coverage to include levofloxacin. Urine is positive as well. Overnight she spiked a fever up to 102. Changed her antibiotics to discontinue the Ancef, changed to Zosyn, vancomycin, and left the levofloxacin. She has continuous fluid leaking from her surgical site. MRI scan showed seroma versus possible CSF leak. With her condition overall deteriorated, hypotensive, inflammatory markers still elevated, white blood cell count is improved but with the fluid collection recommended transfer, Dr. Varela is the accepting physician at [facility], Dr. Lawson was contacted for gi ing information on the location of the transfer. He is aware of the patient's transfer. I will follow-up with patient in the office after discharge from [facility]. Status at Discharge Overall status at discharge: patient is not back to baseline Time Spent with Patient Time attestation: Total time spent providing and/or coordinating discharge services: Time spent: greater than 30 minutes Exam Constitutional Vital Signs, click to edit/add: Last Vital Signs Temp 102.1 F H 12/31/23 03:42 Pulse 117 H 12/31/23 03:42 Resp 18 12/30/23 23:36 BP 95/61 12/31/23 03:42 Pulse Ox 92 L 12/31/23 04:15 O2 Del Method Room Air 12/31/23 04:15 Documenting provider has reviewed patient's vital signs: yes Common normals: no apparent distress Respiratory Common normals: normal respiratory effort, no retractions and clear to auscultation bilaterally Cardio Common normals: no JVD and regular rate Back & Pelvis Common normals: no CVA tenderness (Wound on back with clear drainage) Extremity Common normals: normal to inspection; limited ROM (Poor range of motion due to back pain) Neuro Common normals: moves all extremities and no focal motor deficits DS: Data Data Completed and Pending Labs on day of discharge: Labs from last 24 hours 12/31/23 12/30/23 12/30/23 03:54 13:09 12:53 WBC 10.1 RBC 3.27 L Hgb 9.8 L Hct 29.3 L MCV 89.6 MCH 30.0 MCHC 33.4 RDW 12.8 Plt Count 188 MPV 10.4 Neut % (Auto) 88.9 H Lymph % (Auto) 3.8 L Cobb % (Auto) 6.1 Eos % (Auto) 0.4 L Baso % (Auto) 0.3 Neut # (Auto) 9.0 H Lymph # (Auto) 0.4 L Cobb # (Auto) 0.6 Eos # (Auto) 0.0 Baso # (Auto) 0.0 Abs Immat Gran (auto) 0.05 H Imm/Tot Granulo (auto) 0.5 ESR 105 H 76 H Sodium 132 L Potassium 3.5 Chloride 97 L Carbon Dioxide 26.2 Anion Gap 12.3 BUN 28.0 H Creatinine 1.33 H Est GFR ( Amer) 50 L Est GFR (Non-Af Amer) 41 L BUN/Creatinine Ratio 21.1 Glucose 116 H Lactate 2.4 H* Calcium 8.7 Magnesium 1.5 L 1.7 L C-Reactive Protein 26.79 H 24.84 H NT-Pro-B Natriuret Pep 239.0 447.0 Procalcitonin Urine Color Yellow Urine Clarity Clear Urine pH 5.5 Ur Specific [place] 1.025 Urine Protein Negative Urine Glucose (UA) Negative Urine Ketones Negative Urine Occult Blood Negative Urine Nitrite Negative Urine Bilirubin Negative Urine Urobilinogen 0.2 Ur Leukocyte Esterase Small A Urine RBC None seen Urine WBC 50-75 A Ur Squamous Epith Cells Few A Urine Bacteria Moderate A Urine Mucus None seen Ur Culture Indicated? Already ordered Specimen Source A.calcoaceticus-baumannii cmplx PCR Bacteroides fragilis Nohemy albicans (PCR) Nohemy auris (PCR) C. glabrata (PCR) C. krusei (PCR) C. parapsilosis (PCR) C. tropicalis (PCR) C. neoform/gattii (PCR) Enterobacterales (PCR) E. cloacae complex PCR Enterococc faecalis PCR Enterococc faecium PCR E. coli (PCR) H. influenzae (PCR) Klebsiella aerogenes (PCR) Klebsiella oxytoca PCR K. pneumoniae group (PCR) List. monocytogenes PCR N. meningitidis (PCR) Proteus spp. (copies/mL) Salmonella spp. (PCR) Serratia marcescens PCR Staphylococcus sp PCR Staph aureus (PCR) mecA/C & MREJ Resist Gene mecA/C-Methicil Resis Gene mcr-1 Colistin Res Gene PCR Staph epidermidis (PCR) Staph lugdunensis (TEM-PCR) S. maltophilia (PCR) Streptococcus sp PCR Strep agalactiae (PCR) Strep pneumoniae (PCR) S. pyogenes (PCR) P. aeruginosa (PCR) Corina/B-Vanco Res Genes blaIMP Car res Gene PCR KPC (blaKPC) Detect PCR NDM (blaNDM) Detect PCR OXA-48 Carbapenem Resis Gene (PCR) blaVIM Car Res Gene PCR CTX-M ESBL (PCR) 12/30/23 12/30/23 10:08 08:45 WBC 18.1 H RBC 3.57 L Hgb 10.8 L Hct 32.7 L MCV 91.6 MCH 30.3 MCHC 33.0 RDW 12.9 Plt Count 232 MPV 10.2 Neut % (Auto) 82.7 H Lymph % (Auto) 5.9 L Cobb % (Auto) 10.2 Eos % (Auto) 0.1 L Baso % (Auto) 0.4 Neut # (Auto) 15.0 H Lymph # (Auto) 1.1 L Cobb # (Auto) 1.8 H Eos # (Auto) 0.0 Baso # (Auto) 0.1 Abs Immat Gran (auto) 0.13 H Imm/Tot Granulo (auto) 0.7 H ESR Sodium 135 L Potassium 3.2 L Chloride 96 L Carbon Dioxide 27.0 Anion Gap 15.2 BUN 21.0 H Creatinine 1.19 H Est GFR ( Amer) 57 L Est GFR (Non-Af Amer) 47 L BUN/Creatinine Ratio 17.6 Glucose 131 H Lactate 2.1 H Calcium 8.8 Magnesium C-Reactive Protein NT-Pro-B Natriuret Pep Procalcitonin 2.15 H Urine Color Urine Clarity Urine pH Ur Specific [place] Urine Protein Urine Glucose (UA) Urine Ketones Urine Occult Blood Urine Nitrite Urine Bilirubin Urine Urobilinogen Ur Leukocyte Esterase Urine RBC Urine WBC Ur Squamous Epith Cells Urine Bacteria Urine Mucus Ur Culture Indicated? Specimen Source Blood A.calcoaceticus-baumannii cmplx PCR Not detected Bacteroides fragilis Not detected Nohemy albicans (PCR) Not detected Nohemy auris (PCR) Not detected C. glabrata (PCR) Not detected C. krusei (PCR) Not detected C. parapsilosis (PCR) Not detected C. tropicalis (PCR) Not detected C. neoform/gattii (PCR) Not detected Enterobacterales (PCR) Not detected E. cloacae complex PCR Not detected Enterococc faecalis PCR Not detected Enterococc faecium PCR Not detected E. coli (PCR) Not detected H. influenzae (PCR) Not detected Klebsiella aerogenes (PCR) Not detected Klebsiella oxytoca PCR Not detected K. pneumoniae group (PCR) Not detected List. monocytogenes PCR Not detected N. meningitidis (PCR) Not detected Proteus spp. (copies/mL) Not detected Salmonella spp. (PCR) Not detected Serratia marcescens PCR Not detected Staphylococcus sp PCR Detected A* Staph aureus (PCR) Detected A* mecA/C & MREJ Resist Gene Not detected mecA/C-Methicil Resis Gene Not applicable mcr-1 Colistin Res Gene PCR Not applicable Staph epidermidis (PCR) Not detected Staph lugdunensis (TEM-PCR) Not detected S. maltophilia (PCR) Not detected Streptococcus sp PCR Not detected Strep agalactiae (PCR) Not detected Strep pneumoniae (PCR) Not detected S. pyogenes (PCR) Not detected P. aeruginosa (PCR) Not detected Corina/B-Vanco Res Genes Not applicable blaIMP Car res Gene PCR Not applicable KPC (blaKPC) Detect PCR Not applicable NDM (blaNDM) Detect PCR Not applicable OXA-48 Carbapenem Resis Gene (PCR) Not applicable blaVIM Car Res Gene PCR Not applicable CTX-M ESBL (PCR) Not applicable Preliminary micro results at discharge 12/30/23 12:53 Urine Culture - Preliminary Urine,Clean Catch Discharge Plan Discharge Disposition: [facility] Condition: Good
[2023-12-31 08:46] VITALS: BP 105/70; PULSE 101; TEMP 36.8; O2SAT 95
[2023-12-31] MEDS: POTASSIUM CHLORIDE 10 MEQ ER TABLET 20 MEQ PO (08:53)
[2023-12-31] MEDS: 0.9 % SODIUM CHLORIDE 1,000 ML 500 ML IV ×2 (08:54→10:49)
[2023-12-31] MEDS: MAGNESIUM OXIDE 400 MG TABLET PO (08:54)
[2023-12-31] MEDS: VANCOMYCIN HCL 1,250 MG in 0.9 % SODIUM CHLORIDE 250 ML 166.667000000000002 MG IV (09:52)
[2023-12-31] MEDS: PIPERACILLIN SODIUM/TAZOBACTAM 3.375 GM in 0.9 % SODIUM CHLORIDE 50 ML IV (11:28)
[2023-12-31 11:32] VITALS: BP 106/71; PULSE 103; TEMP 36.8; O2SAT 92
[2023-12-31 11:35] VITALS: O2SAT 97
[2023-12-31] MEDS: LEVOFLOXACIN IN DEXTROSE 5 % 750 MG/150 ML IV.SOLN 100 MG IV (15:05)
--- NOTE | 2023-12-31 15:34 | PC.NURSE ---
1125 pt and aware that pt could order food, pt declined.
--- NOTE | 2023-12-31 15:35 | PC.NURSE ---
report given to [facility] staff. at bedside. pt taken to exit via stretcher, at side. belongings sent with pts .
--- NOTE | 2023-12-31 15:49 | PC.NURSE ---
report called to julieta on unit [address] at [facility], phone number [phone]
== END 2023-12-31 15:30 | disposition short-term general hospital (02) | DRG 862 ==
LOC: ER 10:07 → MS 10:58
PROVIDERS: Admitting Provider Family Medicine; Emergency Provider Emergency Medicine; PCP Family Medicine; Visit Provider Family Medicine
DX: T81.44XA Sepsis following a procedure, initial encounter (principal); A41.9 Sepsis, unspecified organism; R65.20 Severe sepsis without septic shock; M96.842 Postprocedural seroma of a musculoskeletal structure following a musculoskeletal system procedure; G96.09 Other spinal cerebrospinal fluid leak; I50.42 Chronic combined systolic (congestive) and diastolic (congestive) heart failure; N17.9 Acute kidney failure, unspecified; N39.0 Urinary tract infection, site not specified; E87.1 Hypo-osmolality and hyponatremia; L03.312 Cellulitis of back [any part except buttock and flank]; I42.8 Other cardiomyopathies; Y83.8 Other surgical procedures as the cause of abnormal reaction of the patient, or of later complication, without mention of misadventure at the time of the procedure; E86.0 Dehydration; D50.9 Iron deficiency anemia, unspecified; G47.33 Obstructive sleep apnea (adult) (pediatric); E87.6 Hypokalemia; E83.42 Hypomagnesemia; I11.0 Hypertensive heart disease with heart failure; M06.9 Rheumatoid arthritis, unspecified; M19.90 Unspecified osteoarthritis, unspecified site; Z98.1 Arthrodesis status; Z86.16 Personal history of COVID-19; Z79.899 Other long term (current) drug therapy; Z88.1 Allergy status to other antibiotic agents; Z79.82 Long term (current) use of aspirin; Z88.8 Allergy status to other drugs, medicaments and biological substances; Z82.49 Family history of ischemic heart disease and other diseases of the circulatory system
CPT/HCPCS: 36415; 72148; 80048; 81001; 83605; 83735; 83880; 84145; 85025; 85652; 86140; 87040; 87070; 87076; 87086; 87150; 87186; 94761; 96361; 96365; 96366; 96367; 96368; 96375; 96376; 99285; J0690; J1885; J2405; J2543; J2765; J3370; Q0162

== ENCOUNTER 2024-01-24 12:37 | Outpatient (OUT) | payer BC, SELFPAY ==
--- NOTE | 2024-01-24 12:44 | CT_ITS ---
[address] [address] Patient Name: FELICITY PHILLIPS MRN: [id number] date: 1965 Sex: F Assigned Patient Location: CT Current Patient Location: CT Accession/Order Number: [id number] Exam Date: 01/24/2024 14:30 Report Date: 01/24/2024 15:14 At the request of: JOSE ANTONIO QUINN Procedure: CT abdomen pelvis w con EXAMINATION: CT abdomen pelvis w con HISTORY: Acute Abdominal Pain R10.0 COMPARISON: No relevant comparison available. TECHNIQUE: CT images were created with IV contrast. Axial, Coronal, and Sagittal images. Dose reduction techniques were achieved by using automated exposure control and/or adjustment of mA and/or kV according to patient size and/or use of iterative reconstruction technique. FINDINGS: LUNG BASES: No visible pulmonary or pleural disease. LIVER: No enlargement, atrophy, abnormal density, or significant focal lesion. BILIARY: Surgical clips from cholecystectomy PANCREAS: No lesion, fluid collection, ductal dilatation, or atrophy. SPLEEN: No enlargement or focal lesion. ADRENALS: No mass or enlargement. KIDNEYS: No mass, obstruction, or calcification. BOWEL/MESENTERY: No visible mass, obstruction, or bowel wall thickening. AORTA/VASCULAR: No aneurysm or dissection. RETROPERITONEUM: No mass or adenopathy. LYMPH NODES: No adenopathy. URINARY BLADDER: No visible focal wall thickening, lesion, or calculus. PELVIC ORGANS: No visible mass. Pelvic organs appropriate for patient age. ABDOMINAL WALL: No mass or hernia. BONES: 9 mm anterolisthesis of L4 and L5. Posterior decompression bilateral transpedicular fusion L4-L5. Right fractures involving the lateral right superior pubic ramus extending into the anterior column of the acetabulum and midportion of the right inferior pubic ramus. Incomplete bony bridging across the fracture planes. OTHER: Negative. CT/CT abdomen pelvis w con IMPRESSION: No acute intraperitoneal abnormality Electronically authenticated by: UNA ELMORE Date: 01/24/2024 15:14
[2024-01-24 13:50] LABS: Basophils Absolute Auto 0.1 10^3/uL (0.0-0.1); Basophils Percent Auto 1.5 % (0.2-2.0); Eosinophils Absolute Auto 0.2 10^3/uL (0.0-0.7); Eosinophils Percent Auto 4.2 % (0.9-7.0); Hemoglobin 7.5 g/dL (12.0-16.0); Immature Granulocytes Abs Auto 0.02 10^3/uL (0.00-0.03); Immature Granulocytes Pct Auto 0.5 % (0.0-0.5); Lymphocytes Absolute Auto 0.7 10^3/uL (1.2-3.8); Lymphocytes Percent Auto 17.3 % (20.5-60.0); Mean Corpuscular HGB Conc 33.3 g/dL (29.9-35.2); Mean Corpuscular Hemoglobin 28.8 pg (26.7-34.0); Mean Corpuscular Volume 86.5 fL (81.0-99.0); Mean Platelet Volume 9.1 fL (9.5-13.5); Monocytes Absolute Auto 0.6 10^3/uL (0.3-0.8); Monocytes Percent Auto 14.1 % (1.7-12.0); Neutrophils Absolute Auto 2.5 10^3/uL (1.4-6.5); Neutrophils Percent Auto 62.4 % (43.0-75.0); Platelet Count 328 10^3/uL (150-450); Red Cell Distribution Width 13.6 % (11.0-15.0)
[2024-01-24 14:17] LABS: Alanine Aminotransferase 9 U/L (14-59); Albumin Globulin Ratio 0.5; Albumin Level 2.1 g/dL (3.4-5.0); Alkaline Phosphatase 76 U/L (46-116); Anion Gap 12.4; Aspartate Amino Transferase 23 U/L (15-37); Bilirubin Total 1.4 mg/dL (0.2-1.0); Calcium 8.4 mg/dL (8.5-10.1); Carbon Dioxide 27.2 mmol/L (21.0-32.0); Chloride 100 mmol/L (98-107); Estimated GFR (African America >60 (>=60); Estimated GFR (Non-African Ame >60 (>=60); Globulin 4.1 g/dL; Glucose 104 mg/dL (74-106); Sodium 137 mmol/L (136-145); Total Protein 6.2 g/dL (6.4-8.2)
[2024-01-24 14:26] LABS: Potassium 2.6 mmol/L (3.5-5.1)
[2024-01-24 14:57] LABS: Hematocrit 22.5 % (36.0-48.0)
== END 2024-01-24 12:38 | disposition home or self-care (01) ==
LOC: CT 12:39
PROVIDERS: PCP Family Medicine; Visit Provider Family Medicine
DX: R10.0 Acute abdomen (principal)
CPT/HCPCS: 36415; 74177; 80053; 85025; Q9966; Q9967

== ENCOUNTER 2024-02-03 09:19 | Outpatient (OUT) | payer BC, SELFPAY ==
--- NOTE | 2024-02-03 | XR_ITS ---
The [address] [address] Patient Name: FELICITY PHILLIPS MRN: [id number] date: 1965 Sex: F Assigned Patient Location: Current Patient Location: Accession/Order Number: [id number] Exam Date: 02/03/2024 09:20 Report Date: 02/06/2024 11:11 At the request of: FCO CANDELARIO Procedure: XR lumbar spine 2-3V EXAMINATION: XR lumbar spine 2-3V HISTORY: LUMBAR PAIN COMPARISON: 06/21/2023 FINDINGS: BONES: Stable 11 mm anterolisthesis of L4 in relation L5. Posterior decompression bilateral transpedicular fusion L4-L5. No mechanical failure. DISC SPACES: Normal. No significant disc height narrowing, subluxation, or endplate abnormality. PARASPINOUS: Negative. No paraspinous abnormality is seen. OTHER: Negative. XR/XR lumbar spine 2-3V IMPRESSION: Lumbar fusion with stable spondylolisthesis Electronically authenticated by: UNA ELMORE Date: 02/06/2024 11:11
--- OUTSIDE RECORDS SUMMARY | 2024-02-03 09:34 | XMS_ITS | CCD ---
Author Organization [facility] [place] Care Team Providers Care Loss Prevention Officer Name Role Phone PHYSICIAN, DEFAULT Unavailable Unavailable PHYSICIAN, DEFAULT Unavailable Unavailable CEASAR GALLOWAY Attending Unavailab JOSE ANTONIO Romero Referring Unavailable CEASAR GALLOWAY Attending Unavailab JOSE ANTONIO Romero Referring Unavailable UNKNOWN, PROVIDER Attending Unavailable UNKNOWN, PROVIDER Primary Care Unavailable Jose Antonio Quinn Unavailable Unavailable Unavailable MD Jose Antonio Quinn Primary Care Provider MD Kyle Calderon Attending Provider Jose Antonio Quinn Primary Care Physician MD Jose Antonio Quinn Primary Care Provider MATTHEW Bridges Emergency Provider MD Kyle Call II Attending Provider Kyle Call II Unavailable [phone] MD Jose Antonio Quinn Primary Care Provider MATTHEW Bridges Emergency Provider MD Kyle Call II Attending Provider MD Jose Antonio Quinn Primary Care Provider MD Kyle Call II Attending Provider MD Kyle Calderon Attending Provider KAI Grover, DR LUKE Attending Unavailable HOY ., DR LUKE Consulting Unavailable HOY ., DR LUKE Primary Care Unavailable HOY ., DR LUKE Admitting Unavailable HOY ., DR LUKE Primary Care Unavailable NILL ., DR MCCLAIN Attending Unavailable NILL ., DR MCCLAIN Consulting Unavailable NILL ., DR MCCLAIN Admitting Unavailable HOY ., DR LUKE Consulting Unavailable HOY ., DR LUKE Primary Care Unavailable HOY ., DR LUKE Admitting Unavailable HOY ., DR LUKE Attending Unavailable ZIEBER, DR JOSÉ MIGUEL Arias Consulting Unavailable HOY ., DR LUKE Attending Unavailable HOY ., DR LUKE Consulting Unavailable HOY ., DR LUKE Primary Care Unavailable HOY ., DR LUKE Admmynor Unavailable ZIEBER, DR JOSÉ MIGUEL Arias Consulting Unavailable HOY ., DR LUKE Attending Unavailable HOY ., DR LUKE Primary Care Unavailable HOY ., DR LUKE Admitting Unavailable HOY ., DR LUKE Attending Unavailable HOY ., DR LUKE Consulting Unavailable HOY ., DR LUKE Primary Care Unavailable HOY ., DR LUKE Admitting Unavailable OAKDALE, DR UNA Mims Consulting Unavailable Nancy Kapadia Unavailable Maxi Glez Unavailable MD Jose Antonio Quinn Primary Care Provider [phone] MD Jose Antonio Quinn Primary Care Provider MD Kyle Calderon Attending Provider Jose Antonio Quinn MD Primary Care Provider MD Jose Antonio Quinn Primary Care Provider MD Kyle Calderon Attending Provider [phone] MD Stef Molina Jr Emergency Provider BRITTANY CHOUDHURY Attending Unavailable BRITTANY CHOUDHURY Referring Unavailable BRITTANY CHOUDHURY Attending Unavailable BRITTANY CHOUDHURY Attending Unavailable BRITTANY CHOUDHURY Referring Unavailable Kyle Calderon Admitting Unavailable Kyle Calderon Attending Unavailable Jose Antonio Quinn M Primary Care Unavailable Kyle Calderon Attending Unavailable Kvng, Kyle Admitting Unavailable Kai, Jose Antonio M Primary Care Unavailable Kai Jose Antonio M Primary Care Unavailable Kyle Calderon Admitting Unavailable Kyle Calderon Attending Unavailable Stef Molina Jr Admitting Unavailable Stef Molina Jr Attending Unavailable Jose Antonio Quinn Primary Care Unavailable Kyle Calderon Admitting Unavailable Kyle Calderon Attending Unavailable Jose Antonio Quinn M Primary Care Unavailable AMANUEL VALLADARES Attending Unavailable JOSE ANTONIO QUINN Primary Care Unavailable AMANUEL VALLADARES Attending Unavailable JOSE ANTONIO QUINN Primary Care Unavailable BERXI, ARABELLA MACK Attending Unavaila ble BERAKI, ARABELLA WAREI Admitting Unavaila ble BERAKI, ARABELLA WAREI Attending Unavaila ble BERAKI, ARABELLA WAREI Admitting Unavaila ble AMIRA, SELVON F Referring Unavailable MAIRA, SELVON F Attending Unavailable BERAKI, ARABELLA MACK Attending Unavaila ble BERAKI, ARABELLA WAREI Admitting Unavaila ble Briana Winters Attending Unavailable NADEGE ROJO Admitting Unavailable JOSE ANTONIO QUINN Referring Unavailable KEREN ENCINAS Consulting Unavailable JOSE ANTONIO QUINN Primary Care Unavailable KVNG PEREZ Attending Unavailable BERAKIARABELLA Consulting Unavailab james Patton, DO Lauren Alonso Referring Unavailable Jose Antonio Quinn Admitting Unavailable Jose Antonio Quinn Attending Unavailable BERAKI, ARABELLA WAREI Admitting Unavaila ble BERAKI, ARABELLA WAREI Attending Unavaila ble BERAKI, ARABELLA WAREI Attending Unavaila ble BERAKI, ARABELLA WAREI Admitting Unavaila ble BERAKI, ARABELLA MERHARI Admitting Unavaila ble BERAKI, ARABELLA WAREI Attending Unavaila ble BERAKI, ARABELLA MACK Attending Unavaila ble BERAKI, ARABELLA MERHARI Admitting Unavaila ble Dokken, DO Aguilar A Attending Unavailable Dokkjuan, DO Lauren Alonso Attending Unavailable ARABELLA CHAVEZ Referring Unavailable BERAKI, ARABELLA MERHARI Admitting Unavaila ble BERAKI, ARABELLA WAREI Attending Unavaila ble Allergies Allergy Classification Reported Allergen(s) Allergy Type Date of Onset Reaction(s) Facility Etanercept (1 source) Etanercept; Translations: [Enbrel] Drug Allergy [facility] Repository Methotrexate (1 source) Methotrexate; Translations: [methotrexate] Drug Allergy [facility] Sulfamethoxazole / Trimethoprim (1 source) Sulfamethoxazole / Trimethoprim; Translations: [Bactrim] Drug Allergy [facility] (13 sources) Sulfamethoxazole / Trimethoprim; Translations: [SULFAMETHOXAZOLE-TR IMETHOPRIM] Drug Allergy 12-22-19 17 [facility] Repository (20 sources) Etanercept; Translations: [etanercept] Drug Allergy 06-01-20 Unknown (qualifier value), Unknown [facility] (20 sources) Methotrexate; Translations: [methotrexate] Drug Allergy 06-01-20 Unknown [facility] (20 sources) Sulfamethoxazole / Trimethoprim; Translations: [Bactrim DS TABS] Drug Allergy Hives, Unknown [facility] (10 sources) Sulfamethoxazole; Translations: [sulfamethoxazole] Drug Allergy 03-24-20 17 [facility] (10 sources) Trimethoprim; Translations: [trimethoprim] Drug Allergy 03-24-20 17 [facility] (5 sources) Etanercept; Translations: [Enbrel] Drug Allergy 09-16-19 21 [facility] Repository (1 source) Methotrexate Drug Allergy 09-16-19 21 [facility] Rep[facility] (6 sources) Sulfamethoxazole / Trimethoprim; Translations: [Bactrim] Drug Allergy 08-28-19 14 [facility] Repository (1 source) Etanercept Drug Allergy 05-31-20 23 [facility] Repository (1 source) Methotrexate Drug Allergy 05-31-20 23 [facility] Repository Medications Current Medications Medication Drug Class(es) [...] (20 sources) alpha-Adrenergic Azalea, beta-Adrenergic Azalea Start: 08-28-2020 End: 05-11-2023 take 1 tablet by mouth twice daily carvedilol 12.5 mg Tab 12.5 mg = 1 tab(s), Oral, BID, Refills(s) 0 Start Date: 05/19/22 Status: Ordered Start: 08-17-2019 take 1 tablet by neida th once daily Carvedilol Active 1 TAB PO Daily August 17, 2019 12:00am Start: 03-25-2017 End: 10-21-2017 take 6.25 mg by mouth twice daily Carvedilol Discontinued 6.25 MG PO Twice daily 30 March 24, 2017 11:00pm October 20, 2017 11:01pm cefTRIAXone 2000 mg injection (2 sources) Cephalosporin Antibacterial Start: 01-18-2024 End: 01-21-2024 take 2 g intravenously once daily cefTRIAXone 2 g/50 mL IVPB 2 gm, IV, Daily, X 3 day(s), # 3 EA, Refills(s) 0 Start Date: 01/18/24 Stop Date: 01/21/24 Status: Ordered ciprofloxacin 500 mg oral tablet (1 source) [...] monohydrate 100 mg oral tablet (2 sources) Tetracycline-clas s Drug Start: 02-24-2023 End: 03-06-2023 take 1 tablet by mouth twice daily doxycycline monohydrate 100 mg oral tablet 100 mg = 1 tab(s), Oral, BID, X 10 day(s), # 20 tab(s), Refills(s) 0, Pharmacy: [facility], 155, cm, 02/24/23 12:00:00 EDT, [...] oral tablet (20 sources) Loop Diuretic Start: 01-22-2022 End: 05-11-2023 take 1 tablet by mouth once daily Lasix 40 mg Tab 40 mg = 1 tab(s), Oral, Daily, Refills(s) 0 Start Date: 05/19/22 Status: Ordered Start: 03-24-2017 take 40 mg by mouth once daily Furosemide Active 40 MG PO Daily March 23, 2017 11:00pm Start: 12-07-2016 take 1 tablet by neida th once daily Lasix 20 mg Tab 20 mg = 1 tab(s), Oral, Daily, # 30 tab(s), Refills(s) 0, Pharmacy: [facility] Start Date: 12/07/16 Status: [...] tablet (20 sources) Antirheumatic Agent Start: 03-24-2017 leflunomide 20 mg Tab Refills(s) 0 Start Date: 05/19/22 Status: Ordered lidocaine 0.05 mg/mg medicated patch (2 sources) [...] pain, # 20 tab(s), Refills(s) 0, Pharmacy: [facility], 152.4, cm, 05/21/21 7:42:00 EDT, [...] As Directed, 6tab/day x7days,5tab/day x7days,4tab/day x7day,3tab/day x7day,2tab/day x7day,1tab/tmjn3xco, # 119 tab(s), Refills(s) 0, Pharmacy: [facility] Start Date: 12/07/16 Status: Ordered take 1 tablet by [facility] every twenty-four hours predniSONE 20 MG 1 tablet Orally Once a day Active Rituxan (8 sources) [id number] Cytolytic Antibody Start: 05-19-2022 Rituxan Refills(s) 0 Start Date: 05/19/22 Status: Ordered sacubitril 49 mg / valsartan 51 mg oral tablet (20 sources) Angiotensin 2 Receptor Azalea Start: 05-19-2022 End: 05-11-2023 take 1 tablet by mouth twice daily Entresto 49 mg-51 mg oral tablet 1 tab(s), Oral, BID, Refill(s) 0 Start Date: 05/19/22 Status: Ordered spironolactone 25 mg oral tablet (20 sources) Aldosterone Antagonist Start: 03-25-2017 End: 05-11-2023 take 1 tablet by mouth once daily spironolactone 25 mg Tab 25 mg = 1 tab(s), Oral, Daily, Refills(s) 0 Start Date: 05/19/22 Status: Ordered Completed/Discontinued Medications Medication Drug Class(es) Dates Sig (Normalized) Sig (Original) cephalexin 500 mg oral capsule (7 sources) Cephalosporin Antibacterial Start: take 1 capsule by mouth three times daily Keflex 500 mg Cap 500 mg = 1 cap(s), Oral, TID, Take one capsule by mouth three times a day for ten days, # 30 cap(s), Refills(s) 0, [facility], 155, cm, 02/24/23 12:00:00 EDT, [...] take 200 mg by mouth twice daily Plaquenil 200 mg, Oral, BID, Refills(s) 0 Start Date: 05/29/10 Status: Ordered Problems Active Problems Problem Classification Problem Date Documented Date Episodic/Chronic Allergic reactions (8 sources) Eczema 05-19-2022 Episodic Chronic obstructive pulmonary disease and bronchiectasis (1 source) Bronchitis; Translations: [Bronchitis, not specified as acute or chronic] 05-31-2023 Episodic Complication of device; implant or graft (1 source) Complication associated with vascular implant; Translations: [Other specified complication of vascular prosthetic devices, implants and grafts, initial encounter] Onset: 01-18-2024 Chronic Congestive heart failure; nonhypertensive (16 sources) Chronic combined systolic and diastolic heart failure; Translations: [Left ventricular systolic dysfunction] 05-19-2022 Chronic Coronary atherosclerosis and other heart disease (9 sources) Angina pectoris; Translations: [Angina pectoris, unspecified] 03-24-2017 Chronic Essential hypertension (20 sources) Hypertensive disorder; Translations: [Unspecified essential hypertension] Onset: 04-28-2023 01-03-2014 Chronic Immunity disorders (8 sources) Immunodeficiency disorder 05-19-2022 Chronic Nonspecific chest pain (9 sources) Chest pain; Translations: [Chest pain, unspecified] 08-17-2019 Episodic Open wounds of extremities (1 source) Laceration of finger without foreign body; Translations: [Laceration without foreign body of unspecified finger without damage to nail, initial encounter] Onset: 05-10-2022 Episodic Other aftercare (1 source) Other longterm (current) drug therapy; Translations: [Other rodent exterminator (current) drug therapy] Onset: 09-27-2023 Episodic Other [...] RT PUBIS SEQ] Onset: 11-13-2022 Episodic Other infections; including parasitic (1 source) Unspecified infectious disease; Translations: [Unspecified infectious disease] Onset: 12-31-2023 Episodic Other non-traumatic joint disorders (7 sources) Hip pain; Translations: [Pain in right hip] 07-05-2022 Episodic Other nutritional; endocrine; and metabolic disorders (18 sources) Body mass index 40+ - severely obese; Translations: [Body Mass Index 40.0-44.9, adult] Onset: 05-19-2022 Chronic Other nutritional; endocrine; and metabolic disorders (20 sources) Morbid obesity; Translations: [Morbid obesity] Onset: [...] 08-18-2019 Episodic Rheumatoid arthritis and related disease (12 sources) Rheumatoid arthritis; Translations: [Rheumatoid arthritis, unspecified] Onset: 05-11-2023 05-19-2022 Chronic Screening and history of mental health and substance abuse codes (6 sources) Ex-smoker; Translations: [Personal history of tobacco use] Episodic Comment on above: QUIT 07/19 PPD; Skin and subcutaneous tissue infections (20 sources) Abscess of right axilla; Translations: [Cutaneous abscess of right axilla] Onset: 05-19-2022 Episodic Spondylosis; intervertebral disc disorders; other back problems (3 sources) Inflammation of sacroiliac joint; Translations: [Sacroiliitis, not elsewhere classified] Chronic Spondylosis; intervertebral disc disorders; other back problems (11 sources) Lumbar radiculopathy; Translations: [Radiculopathy, lumbar region] Onset: 11-18-2022 05-19-2022 Episodic Superficial injury; contusion (9 sources) Contusion of elbow; Translations: [Contusion of left elbow, initial encounter] 06-01-2021 Episodic Unclassified (9 sources) lymph node removal 10-10-2012 Unclassified (1 [...] inflammatory polyarthropathies] Onset: 04-28-2023 04-28-2023 Episodic Unclassified (9 sources) RA 06-01-2010 Results Test Name Value Interpretation Reference Range Facility CHEMISTRYOrdered By: SYSTEM SYSTEM on 01-30-2024 Albumin [Mass/Vol] 3.2 g/dL Low 3.3 - 5.0 gm/dL [facility] Albumin/Globulin [Mass ratio] 1.1 {ratio} Normal 1.1 - 2.2 [facility] ALP [Catalytic activity/Vol] 78 [iU]/d Normal 21 - 98 Int._Unit/L [facility] Chem ALT No additional P-5'-P [Catalytic activity/Vol] 7 [iU]/d Normal 6 - 46 Int._Unit/L [facility] Anion gap [Moles/Vol] 14 mmol/L Normal 6 - 16 mEq/L R emisol Chem AST [Catalytic activity/Vol] 16 [iU]/d Normal 5 - 43 Int._Unit/L [facility] Bilirubin [Mass/Vol] 0.9 mg/dL Normal 0.0 - 1 .1 mg/dL [facility] Bilirubin.direct [Mass/Vol] 0.2 mg/dL Normal 0.0 - 0.4 mg/dL [facility] Bilirubin.indirect [Mass or moles/Vol] 0.7 mg/dL Normal 0.1 - 0.9 mg/dL [facility] Calcium [Mass/Vol] 8.4 mg/dL Low 8.9 - 11. 1 mg/dL [facility] Chloride [Moles/Vol] 102 mmol/L Normal 101 - 1 11 mmol/L [facility] CO2 [Moles/Vol] 24 mmol/L Normal 21 - 31 mmol/L [facility] Creatinine [Mass/Vol] 0.6 mg/dL Normal 0.5 - 1.3 mg/dL [facility] eGFR 104 mL/min/1.73 m2 Normal >=59mL/mi n/1 .73 m2 [facility] Globulin (S) [Mass/Vol] 3.0 g/dL Normal 1.4 - 4.0 gm/dL [facility] Glucose [Mass/Vol] 178 mg/dL Normal 55 - 199 mg/dL [facility] Potassium [Moles/Vol] 2.8 mmol/L Invalid Interpretation Code 3.5 - 5.3 mmol/L [facility] Comment on above: Result Comment: Crit ical Result S_K:2.8 Called to and read back by: DR CHAVEZ at: 01/30/2024 18:56:30 by:[email or web address] Critical Result Verified by Repeat Analysis Protein [Mass/Vol] 6.2 g/dL Normal 6.0 - 7.8 gm/dL [facility] Sodium [Moles/Vol] 137 mmol/L Normal 135 - 145 mmol/L [facility] Urea nitrogen [Mass/Vol] 5 mg/dL Normal 5 - 21 mg/dL [facility] Urea nitrogen/Creatinine [Mass ratio] 8 mg/mg Low 10 - 20 [facility] HEMATOLOGYOrdered By: SYSTEM SYSTEM on 01-30-2024 Basophils/100 WBC (Bld) 2.2 % High 0.0 - 2.0 % [facility]e Basophils/Leukocytes Auto (Bld) [Pure # fraction] 0.1 E9/L Normal 0.0 - 0.2 E9/L [facility] Eosinophils (Bld) [#/Vol] 0.1 E9/L Normal 0.0 - 0.5 E9/L [facility] Eosinophils/100 WBC (Bld) 1.6 % Normal 0.0 - 8.0 % [facility] Erythrocyte distribution width (RBC) [Ratio] 15.0 % High 10.9 - 14.2 % [facility] Hematocrit (Bld) [Volume fraction] 22.3 % Low 34.0 - 46.0 % [facility] Hemoglobin (Bld) [Mass/Vol] 7.8 g/dL Low 12.0 - 16.0 gm/dL [facility] Lymphocytes (Bld) [#/Vol] 0.8 E9/L Low 1.0 - 4.0 E9/L [facility] Lymphocytes/100 WBC (Bld) 15.2 % Normal 14.0 - 50.0 % [facility] MCH (RBC) [Entitic mass] 29.4 pg Normal 27.0 - 34.0 pg [facility] MCHC (RBC) [Mass/Vol] 34.9 g/dL Normal 31.4 - 36.0 gm/dL [facility] MCV (RBC) [Entitic vol] 84.3 fL Normal 80.0 - 100.0 fL [facility] Monocytes (Bld) [#/Vol] 0.7 E9/L Normal 0.2 - 1.0 E9/L [facility] Monocytes/100 WBC (Bld) 12.3 % Normal 4.0 - 14.0 % [facility] Neutrophils (Bld) [#/Vol] 3.6 E9/L Normal 2.0 - 7.5 E9/L [facility] Neutrophils/100 WBC (Bld) 68.7 % Normal 36.0 - 75.0 % [facility] Platelet 324.0 E9/L Normal 150.0 - 500.0 E9/L [facility] Platelet mean volume (Bld) [Entitic vol] 7.4 fL Normal 6.4 - 10.8 fL [facility] RBC (Bld) [#/Vol] 2.7 E12/L Low 4.3 - 5.9 E12/L [facility] WBC corrected for nucl RBC Auto (Bld) [#/Vol] 5.3 E9/L Normal 4.0 - 11.0 E9/L [facility] Heme BMPon 01-23-2024 Anion gap [Moles/Vol] 12 mmol/L Normal 6-16 [facility] Comment on above: Performed By: #### 2 [id number] #### [facility] [address] [place] [address] Calcium [Mass/Vol] 7.6 mg/dL Low 8.9-11.1 [facility] Comment on above: Performed By: #### 2 [id number] #### [facility] [address] [place] [address] Chloride [Moles/Vol] 101 mmol/L Normal 101-111 [facility] Comment on above: Performed By: #### 2 [id number] #### [facility] [address] [place] [address] CO2 [Moles/Vol] 26 mmol/L Normal 21-[address] [facility] Comment on above: Performed By: #### 2 [id number] #### [facility] [address] [place] [address] Creatinine [Mass/Vol] 0.7 mg/dL Normal 0.5-1.3 [facility] Comment on above: Performed By: #### 2 [id number] #### [facility] [address] [place] [address] Glucose [Mass/Vol] 121 mg/dL Normal 55-199 [facility] Comment on above: Performed By: #### 2 [id number] #### [facility] [address] [place] [address] Potassium [Moles/Vol] 3.0 mmol/L Low 3.5-5.3 [facility] Comment on above: Performed By: #### 2 [id number] #### [facility] [address] [place] [address] Sodium [Moles/Vol] 136 mmol/L Normal 135-145 [facility] Comment on above: Performed By: #### 2 [id number] #### [facility] [address] [place] [address] Urea nitrogen [Mass/Vol] 6 mg/dL Normal 5-21 [facility] Comment on above: Performed By: #### 2 [id number] #### [facility] [address] [place] [address] Urea nitrogen/Creatinine [Mass ratio] 9 No Units Low 10-20 [facility] Comment on above: Performed By: #### 2 [id number] #### [facility] [address] [place] [address] CBC w/ Auto Diffon 4 Basophils/100 WBC (Bld) 1.1 % Normal 0.0-2.0 [facility] Comment on above: Performed By: #### 2 [id number] #### [facility] [address] [place] [address] Basophils/Leukocytes Auto (Bld) [Pure # fraction] 0.0 E9/L Normal 0.0-0.2 [facility] Comment on above: Performed By: #### 2 [id number] #### [facility] [address] [place] [address] Eosinophils (Bld) [#/Vol] 0.2 E9/L Normal 0.0-0.5 [facility] Comment on above: Performed By: #### 2 [id number] #### [facility] [address] [place] [address] Eosinophils/100 WBC (Bld) 3.8 % Normal 0.0-8.0 [facility] Comment on above: Performed By: #### 2 [id number] #### [facility] [address] [place] [address] Erythrocyte distribution width (RBC) [Ratio] 14.1 % Normal 10.9-14.2 [facility] Comment on above: Performed By: #### 2 [id number] #### [facility] [address] [place] [address] Hematocrit (Bld) [Volume fraction] 21.2 % Low 34.0-46.0 [facility] Comment on above: Performed By: #### 2 [id number] #### [facility] [address] [place] [address] Hemoglobin (Bld) [Mass/Vol] 7.3 g/dL Low 12.0-16.0 [facility] Comment on above: Performed By: #### 2 [id number] #### [facility] [address] [place] [address] Lymphocytes (Bld) [#/Vol] 0.7 E9/L Low 1.0-4.0 [facility] Comment on above: Performed By: #### 2 [id number] #### [facility] [address] [place] [address] Lymphocytes/100 WBC (Bld) 15.7 % Normal 14.0-50.0 [facility] Comment on above: Performed By: #### 2 [id number] #### [facility] [address] [place] [address] MCH (RBC) [Entitic mass] 29.0 pg Normal 27.0-34.0 [facility] Comment on above: Performed By: #### 2 [id number] #### [facility] [address] [place] [address] MCHC (RBC) [Mass/Vol] 34.3 g/dL Normal 31.4-36.0 [facility] Comment on above: Performed By: #### 2 [id number] #### [facility] [address] [place] [address] MCV (RBC) [Entitic vol] 84.7 fL Normal 80.0-100.0 [facility] Comment on above: Performed By: #### 2 [id number] #### [facility] [address] [place] [address] Monocytes (Bld) [#/Vol] 0.7 E9/L Normal 0.2-1.0 [facility] Comment on above: Performed By: #### 2 [id number] #### [facility] [address] [place] [address] Neutrophils (Bld) [#/Vol] 2.6 E9/L Normal 2.0-7.5 [facility] Comment on above: Performed By: #### 2 [id number] #### [facility] [address] [place] [address] Neutrophils/100 WBC (Bld) 63.1 % Normal 36.0-75.0 [facility] Comment on above: Performed By: #### 2 [id number] #### [facility] [address] [place] [address] Platelet mean volume (Bld) [Entitic vol] 7.4 fL Normal 6.4-10.8 [facility] Comment on above: Performed By: #### 2 [id number] #### [facility] [address] [place] [address] Platelets (Bld) [#/Vol] 306.0 E9/L Normal 150.0-500.0 [facility] Comment on above: Performed By: #### 2 [id number] #### [facility] [address] [place] [address] RBC (Bld) [#/Vol] 2.5 E12/L Low 4.3-5.9 [facility] Comment on above: Result Comment: Beba pheral smear review performed. Performed By: #### 2 [id number] #### [facility] [address] [place] [address] WBC corrected for nucl RBC Auto (Bld) [#/Vol] 4.2 E9/L Normal 4.0-11.0 [facility] Comment on above: Result Comment: Beba pheral smear review performed. Performed By: #### 2 [id number] #### [facility] [address] [place] [address] CHEMISTRYOrdered By: SYSTEM SYSTEM on 01-23-2024 Albumin [Mass/Vol] 2.9 g/dL Low 3.3 - 5.0 gm/dL [facility] Albumin/Globulin [Mass ratio] 1.1 {ratio} Normal 1.1 - 2.2 [facility] ALP [Catalytic activity/Vol] 60 [iU]/d Normal 21 - 98 Int._Unit/L [facility] Chem ALT No additional P-5'-P [Catalytic activity/Vol] 7 [iU]/d Normal 6 - 46 Int._Unit/L [facility] Anion gap [Moles/Vol] 12 mmol/L Normal 6 - 16 mEq/L R emisol Chem AST [Catalytic activity/Vol] 14 [iU]/d Normal 5 - 43 Int._Unit/L [facility] Bilirubin [Mass/Vol] 0.8 mg/dL Normal 0.0 - 1 .1 mg/dL [facility] Bilirubin.direct [Mass/Vol] 0.2 mg/dL Normal 0.0 - 0.4 mg/dL [facility] Bilirubin.indirect [Mass or moles/Vol] 0.6 mg/dL Normal 0.1 - 0.9 mg/dL [facility] Calcium [Mass/Vol] 7.6 mg/dL Low 8.9 - 11. 1 mg/dL [facility] Chloride [Moles/Vol] 101 mmol/L Normal 101 - 1 11 mmol/L [facility] CO2 [Moles/Vol] 26 mmol/L Normal 21 - 31 mmol/L [facility] Creatinine [Mass/Vol] 0.7 mg/dL Normal 0.5 - 1.3 mg/dL Rem[facility] Chem eGFR 100 mL/min/1.73 m2 Normal >=59mL/mi n/1 .73 m2 [facility] Globulin (S) [Mass/Vol] 2.7 g/dL Normal 1.4 - 4.0 gm/dL [facility] Glucose [Mass/Vol] 121 mg/dL Normal 55 - 199 mg/dL [facility] Potassium [Moles/Vol] 3.0 mmol/L Low 3.5 - 5.3 mmol/L [facility] Chem Protein [Mass/Vol] 5.6 g/dL Low 6.0 - 7.8 gm/dL [facility] Sodium [Moles/Vol] 136 mmol/L Normal 135 - 145 mmol/L [facility] Urea nitrogen [Mass/Vol] 6 mg/dL Normal 5 - 21 mg/dL [facility] Chem Urea nitrogen/Creatinine [Mass ratio] 9 mg/mg Low 10 - 20 [facility] HEMATOLOGYOrdered By: SYSTEM SYSTEM on 01-23-2024 Basophils/100 WBC (Bld) 1.1 % Normal 0.0 - 2.0 % Rem[facility] Heme Basophils/Leukocytes Auto (Bld) [Pure # fraction] 0.0 E9/L Normal 0.0 - 0.2 E9/L [facility]e Eosinophils (Bld) [#/Vol] 0.2 E9/L Normal 0.0 - 0.5 E9/L [facility]e Eosinophils/100 WBC (Bld) 3.8 % Normal 0.0 - 8.0 % [facility]e Erythrocyte distribution width (RBC) [Ratio] 14.1 % Normal 10.9 - 14.2 % [facility] Hematocrit (Bld) [Volume fraction] 21.2 % Low 34.0 - 46.0 % [facility]e Hemoglobin (Bld) [Mass/Vol] 7.3 g/dL Low 12.0 - 16.0 gm/dL [facility]e Lymphocytes (Bld) [#/Vol] 0.7 E9/L Low 1.0 - 4.0 E9/L [facility]e Lymphocytes/100 WBC (Bld) 15.7 % Normal 14.0 - 50.0 % [facility]e MCH (RBC) [Entitic mass] 29.0 pg Normal 27.0 - 34.0 pg Rem[facility]e MCHC (RBC) [Mass/Vol] 34.3 g/dL Normal 31.4 - 36.0 gm/dL [facility]e MCV (RBC) [Entitic vol] 84.7 fL Normal 80.0 - 100.0 fL [facility]e Monocytes (Bld) [#/Vol] 0.7 E9/L Normal 0.2 - 1.0 E9/L [facility]e Monocytes/100 WBC (Bld) 16.3 % High 4.0 - 14.0 % [facility]e Neutrophils (Bld) [#/Vol] 2.6 E9/L Normal 2.0 - 7.5 E9/L [facility]e Neutrophils/100 WBC (Bld) 63.1 % Normal 36.0 - 75.0 % [facility] Platelet mean volume (Bld) [Entitic vol] 7.4 fL Normal 6.4 - 10.8 fL [facility]e Platelets (Bld) [#/Vol] 306.0 E9/L Normal 150.0 - 500.0 E9/L [facility] RBC (Bld) [#/Vol] 2.5 E12/L Low 4.3 - 5.9 E12/L [facility] Comment on above: Result Comment: Beba pheral smear review performed. WBC corrected for nucl RBC Auto (Bld) [#/Vol] 4.2 E9/L Normal 4.0 - 11.0 E9/L [facility] Comment on above: Result Comment: Beba pheral smear review performed. Hep Func Panelon 01-23-2024 Albumin [Mass/Vol] 2.9 g/dL Low 3.3-5.0 [facility] Comment on above: Performed By: #### 2 [id number] #### [facility] [address] [place] [address] Albumin/Globulin (S) [Mass conc ratio] 1.1 Normal 1.1-2.2 [facility] Comment on above: Performed By: #### 2 [id number] #### [facility] [address] [place] [address] ALP [Catalytic activity/Vol] 60 Int._Unit/L Normal 21-98 [facility] Comment on above: Performed By: #### 2 [id number] #### [facility] [address] [place] [address] ALT No additional P-5'-P [Catalytic activity/Vol] 7 Int._Unit/L Normal 6-46 [facility] Comment on above: Performed By: #### 2 [id number] #### [facility] [address] [place] [address] AST [Catalytic activity/Vol] 14 Int._Unit/L Normal 5-43 [facility] Comment on above: Performed By: #### 2 [id number] #### [facility] [address] [place] [address] Bilirubin [Mass/Vol] 0.8 mg/dL Normal 0.0-1.1 [facility] Comment on above: Performed By: #### 2 [id number] #### [facility] [address] [place] [address] Bilirubin.direct [Mass/Vol] 0.2 mg/dL Normal 0.0-0.4 [facility] Comment on above: Performed By: #### 2 [id number] #### [facility] [address] [place] [address] Bilirubin.indirect [Mass or moles/Vol] 0.6 mg/dL Normal 0.1-0.9 [facility] Comment on above: Performed By: #### 2 [id number] #### [facility] [address] [place] [address] Globulin (S) [Mass/Vol] 2.7 g/dL Normal 1.4-4.0 [facility] Comment on above: Performed By: #### 2 [id number] #### [facility] [address] [place] [address] Protein [Mass/Vol] 5.6 g/dL Low 6.0-7.8 [facility] Comment on above: Performed By: #### 2 [id number] #### [facility] [address] [place] [address] eGFRon 01-23-2024 eGFR 100 mL/min/1.73 m2 Normal >=59 [facility] Comment on above: Order Comment: Order added by Discern Expert. Performed By: #### 1 [id number] #### [facility] [address] [place] [address] ED Clinical Summaryon 2023 ED Clinical Summary ED Clinical Summary [address] [address] ED Clinical Summary Person Information Name: FELICITY VILLAR [place] Age: 58 Years : 1965 Sex: Female Language: Danish PCP: Jose Antonio Quinn MD Marital Status: Phone: [phone] Visit Id: Visit Reason: PICC line problem; PICC LINE BLEEDING Speciality: Acuity: 5 Enc Type: Emergency Med Service: Emergency Arrival: 01/18/2024 19:31:30 Discharge: 01/18/2024 22:31:16 LOS: 000 03:00 Checkin: 01/18/2024 19:31:30 Checkout: 01/18/2024 22:31:16 Dispo Type: Home (Routine DC) EVENTS: Event Name Event Status Request Date/Time Start Date/Time Complete Date/Time Arrive Complete 01/18/2024 19:31:30 01/18/2024 19:31:30 01/18/2024 19:31:30 Document Home Meds Request 01/18/2024 19:31:30 Triage Complete 01/18/2024 19:31:30 01/18/2024 19:38:56 01/18/2024 19:38:56 Registration Complete 01/18/2024 19:33:53 01/18/2024 19:33:53 01/18/2024 19:33:53 Reg Complete Request 01/18/2024 19:33:53 Reg Bed Request Complete 01/18/2024 19:33:53 01/18/2024 19:33:53 01/18/2024 19:33:53 Dr Exam Complete 01/18/2024 19:36:18 01/18/2024 19:36:18 01/18/2024 19:36:18 Registration Start 01/18/2024 19:36:18 01/18/2024 19:39:08 Bed Assign Complete 01/18/2024 19:39:08 01/18/2024 19:39:08 01/18/2024 19:39:08 RN Exam Complete 01/18/2024 19:39:08 01/18/2024 20:12:32 01/18/2024 20:12:32 Meds Admin Complete 01/18/2024 20:32:09 01/18/2024 21:29:06 Pending Labs Collected 01/18/2024 21:34:22 Lab Collected 01/18/2024 21:34:22 Discharge Complete 01/18/2024 21:59:15 01/18/2024 22:31:23 01/18/2024 22:31:23 Transfer Complete 01/18/2024 22:31:23 01/18/2024 22:31:23 01/18/2024 22:31:23 ADDRESS: [address] [place] [id number] PHYS DOC NOTES: MEDICAL INFORMATION: Prescriptions Given: New Medications Printed Prescriptions ceftriaxone (cefTRIAXone 2 g/50 mL IVPB) 2 Gram Intravenous every day for 3 Days. Refills: 0. Medications to Continue with No Changes Other Medications carvedilol (carvedilol 12.5 mg Tab) 1 Tablets By Mouth 2 times a day. cephalexin (Keflex 500 mg Cap) 1 Capsules By Mouth 3 times a day. Take one capsule by mouth three times a day for ten days. Refills: 0. furosemide (Lasix 40 mg Tab) 1 Tablets By Mouth every day. hydroxychloroquine (Plaquenil) 200 Milligram By Mouth 2 times a day. leflunomide (leflunomide 20 mg Tab) rituximab (Rituxan) sacubitril-valsartan (Entresto 49 mg-51 mg oral tablet) 1 Tablets By Mouth 2 times a day. spironolactone (spironolactone 25 mg Tab) 1 Tablets By Mouth every day. PATIENT EDUCATION INFORMATION: Instructions: PICC Home Care Guide; PICC Removal, Adult, Care After Follow up: With: Address: When: Jose Antonio Quinn [address] [place] [address], [facility] [place] [phone] Business (1) In 3 days 01/21/2024 Comments: Please follow-up with the infusion center tomorrow for repeat antibiotic infusion and the PICC team will reach out to you on Tuesday to schedule a time for you to come in to get the PICC replaced. Return to the ED for any new or worsening symptoms. DIAGNOSIS: Occluded PICC line Normal [facility] ED Note-Nursingon 01-18-2024 ED Note-Nursing ED Note-Nursing pt. dc'd with peripheral IV in place, flushes with no complications after antibiotic administration in ED. pt. is instructed to return tomorrow for her out pt. antibiotic infusion, pt. aware she is [facility] assembly Anne with a timeframe to return for infusion. pt. also has electronic order for PICC line replacement for Tuesday01/20/24 d/t previous PICC migration. Angela Reina, CV director also aware of PICC order. Luda, ED supervisor fireworks assembly aware and Gracia, hospital supervisor fireworks assembly aware of plan. Normal [facility] ED Note-Physicianon 01-18-20 ED Note-Physician ED Note-Physician Basic Information Time Seen: Lauren Patton DO 01/18/2024 19:36 Chief Complaint pt to ED with c/o PICC line dressing bleeding. states she was here yesterday and recieved cathflo. denies pain or trauma to the area. noticed this a little while ago. denies migration of the catheter. no active bleeding noted, just loose dressing. History of Present Illness Patient is a 58-year-old female with past medical history of hypertension, immunodeficiency, rheumatoid arthritis, cardiomyopathy presenting to the ED for evaluation of bleeding from her PICC line. Patient states she was seen yesterday had Cathflo into the PICC line because it was not functioning properly. Patient is currently getting IV antibiotics through the PICC line and noted some oozing and bleeding from around the line. Patient denies any other complaints. Review of Systems A 10 point review of systems is negative except as noted above. Medical and Surgical History: Reviewed and noted Social history: Lives at home Tobacco: Denies Physical Exam Vitals & Measurements T: 36.8 ?C(Oral) HR: 86(Peripheral) RR: 18 BP: 140/64 SpO2: 97% HT: 154 cm WT: 90.1 kg BMI: 37.99 General: Well developed, non toxic appearing, no acute distress HEENT: Head atraumatic, Mucosa moist, hearing grossly normal Neck: No JVD, tracheal deviation Cardiac: Regular rate, rhythm, no murmurs, or gallops, 2+ radial pulses Respiratory: Lungs clear to auscultation B/L, normal respiratory effort Abdomen: Soft non tender, no rebound or guarding, no peritoneal signs Extremities: No edema noted in the LE B/L, no tenderness to palpation, PICC line in place to the left upper extremity, no bleeding noted from around the PICC line there is some blood noted on the gauze. Neurologic: Alert and oriented, speech clear Skin: No rashes or lesions Psych: Appropriate mood and behavior Medical Decision Making MEDICAL DECISION MAKING Number and Complexity of Problems Differential Diagnosis: [] [facility] Data External documents reviewed: [] My EKG interpretation: [] My CT interpretation: [] My X-ray interpretation: [] My Ultrasound interpretation: [] Decision rules/scores evaluated: [] Discussed with: [] Treatment and Disposition ED Course: Patient is a 58-year-old female presenting to the ED for evaluation of bleeding from her PICC line. Patient nontoxic and on arrival, no acute distress. Patient does not have any active bleeding noted from the PICC line. PICC line is noted to be displaced I was able to obtain records and it appears that he was supposed to get 2 cm of currently out 7 to 8 cm therefore were concerned that the PICC line is not currently in place that is not leaking around it. Decision was made to place an IV and give IV ceftriaxone assess what she was given for her MSSA at other facility. I discussed with pharmacy they are in agreement with this plan. Call is placed we are able to arrange for patient to have outpatient infusion tomorrow of another dose of Rocephin and we are able to arrange for patient to be placed on the schedule for Tuesday for new PICC line placement. Patient discharged home she is to follow-up for further evaluation management. She is to return to the ED for any new or worsening symptoms. Code status: [] Assessment/Plan Occluded PICC line (T82.898A: Other specified complication of vascular prosthetic devices, implants and grafts, initial encounter) Ordered: CV PICC Line Insertion Orders: ceftriaxone, 2 gm, IV, Daily, X 3 day(s), # 3 EA, Refills(s) 0 ceftriaxone + Sodium Chloride 0.9% intravenous solution 50 mL, 2,000 mg = 1 EA, Injection, IV Piggyback, Once, Stop date 01/18/24 20:31:00 EDT, STAT, Start date 01/18/24 20:31:00 EDT, 100 mL/hr, Infuse over 30 minute(s) Catheter Tip Culture PICC Line (Jose) Medications Administered Given [id number] [F] 2000 mg + Sodium Chloride 0.9% IV Coleen 50 mL Minibag Plus [F] 50 mL, IV Piggyback Disposition Plan Discharge Prescription List Prescriptions cefTRIAXone 2 g/50 mL IVPB, 2 gm, IV, Daily Follow-up No qualifying data available Patient Education PICC Home Care Guide PICC Removal, Adult, Care After Problem List/Past Medical History Ongoing Axillary abscess [...] Tab, 12.5 mg= 1 tab(s), Oral, BID Entresto 49 mg-51 mg oral tablet, 1 tab(s), Ora (more content not included)... Normal [facility] Comment on above: Result Comment: Elec tronically Signed By: Lauren Patton DO\.br\Date and Time Signed: 01/18/24 21:59 EDT ED Patient Summaryon 024 ED Patient Summary ED Patient Summary [address] [address] Patient Discharge Instructions Person Information Name: LALY VILLARJenifer Alonso Age: 58 Years Arrival Date: 01/18/2024 19:31:30 Discharge Diagnosis: Occluded PICC line Primary Care Physician: Jose Antonio Quinn MD Provider Information Primary Provider: Lauren Patton DO Advanced Tunnel Man:None The exam and treatment you received in the Emergency Department were for an urgent problem and are not intended as complete care. It is important that you follow up with a doctor, nurse practitioner, or physician?s diet assistant for ongoing care. If your symptoms become worse or you do not improve as expected and you are unable to reach your usual health care provider, you should return to the Emergency Department. We are available 24 hours a day. FELICITY VILLAR has been given the following list of patient education materials, prescriptions and follow-up instructions: Follow-up Instructions: With: Address: When: Jose Antonio Quinn [address] [place] [address], [facility] [place] [address] Business (1) In 3 days 01/21/2024 Comments: Please follow-up with the infusion center tomorrow for repeat antibiotic infusion and the PICC team will reach out to you on Tuesday to schedule a time for you to come in to get the PICC replaced. Return to the ED for any new or worsening symptoms. In the event that this physician does not participate in your insurance network, please consult with your insurance company to find a nearby participating provider. Patient Education Materials: PICC Home Care Guide; PICC Removal, Adult, Care After A MESSAGE TO ALL PATIENTS REGARDING OPIOIDS PRESCRIPTION OPIOIDS: WHAT YOU NEED TO KNOW Prescription opioids can be used to help relieve [id number] pain and are often prescribed following a [...] guidance from the Food and Drug Administration (www.fda.gov/Sameer (more content not included)... Normal [facility] Interdisciplinary Note - Nolan singon 01-17-2024 Interdisciplinary Note - Nursing Interdisciplinary Note - Nursing Cath loly administered per protocol. Able to aspirate blood on second round of cath loly administration. line flushed with NS as per cath loly instructionl. Normal [facility] BMPon 01-16-2024 Anion gap [Moles/Vol] 11 mmol/L Normal 6-16 [facility] Comment on above: Performed By: #### 2 [id number] #### [facility] [address] [place] [address] Calcium [Mass/Vol] 8.0 mg/dL Low 8.9-11.1 [facility] Comment on above: Performed By: #### 2 [id number] #### [facility] [address] [place] [address] Chloride [Moles/Vol] 103 mmol/L Normal 101-111 [facility] Comment on above: Performed By: #### 2 [id number] #### [facility] [address] [place] [address] CO2 [Moles/Vol] 27 mmol/L Normal 21-[address] [facility] Comment on above: Performed By: #### 2 [id number] #### [facility] [address] [place] [address] Creatinine [Mass/Vol] 0.7 mg/dL Normal 0.5-1.3 [facility] Comment on above: Performed By: #### 2 [id number] #### [facility] [address] [place] [address] Glucose [Mass/Vol] 119 mg/dL Normal 55-199 [facility] Comment on above: Performed By: #### 2 [id number] #### [facility] [address] [place] [address] Potassium [Moles/Vol] 3.0 mmol/L Low 3.5-5.3 [facility] Comment on above: Performed By: #### 2 [id number] #### [facility] [address] [place] [address] Sodium [Moles/Vol] 138 mmol/L Normal 135-145 [facility] Comment on above: Performed By: #### 2 385202 #### [facility] [address] [place] [address] Urea nitrogen [Mass/Vol] 5 mg/dL Normal 5-21 [facility] Comment on above: Performed By: #### 2 779483 #### [facility] [address] [place] [address] Urea nitrogen/Creatinine [Mass ratio] 7 No Units Low 10-20 [facility] Comment on above: Performed By: #### 2 [id number] #### [facility] [address] [place] [address] CBC w/ Auto Diffon 4 Basophils/100 WBC (Bld) 2.2 % High 0.0-2.0 [facility] Comment on above: Performed By: #### 2 [id number] #### [facility] [address] [place] [address] Basophils/Leukocytes Auto (Bld) [Pure # fraction] 0.1 E9/L Normal 0.0-0.2 [facility] Comment on above: Performed By: #### 2 [id number] #### [facility] [address] [place] [address] Eosinophils (Bld) [#/Vol] 0.1 E9/L Normal 0.0-0.5 [facility] Comment on above: Performed By: #### 2 275588 #### [facility] [address] [place] [address] Eosinophils/100 WBC (Bld) 5.5 % Normal 0.0-8.0 [facility] Comment on above: Performed By: #### 2 517487 #### [facility] [address] [place] [address] Erythrocyte distribution width (RBC) [Ratio] 13.4 % Normal 10.9-14.2 [facility] Comment on above: Performed By: #### 2 139446 #### [facility] [address] [place] [address] Hematocrit (Bld) [Volume fraction] 22.7 % Low 34.0-46.0 [facility] Comment on above: Performed By: #### 2 [id number] #### [facility] [address] [place] [address] Hemoglobin (Bld) [Mass/Vol] 7.7 g/dL Low 12.0-16.0 [facility] Comment on above: Performed By: #### 2 [id number] #### [facility] [address] [place] [address] Lymphocytes (Bld) [#/Vol] 0.7 E9/L Low 1.0-4.0 [facility] Comment on above: Performed By: #### 2 117695 #### [facility] [address] [place] [address] Lymphocytes/100 WBC (Bld) 25.1 % Normal 14.0-50.0 [facility] Comment on above: Performed By: #### 2 577164 #### [facility] [address] [place] [address] MCH (RBC) [Entitic mass] 30.0 pg Normal 27.0-34.0 [facility] Comment on above: Performed By: #### 2 [id number] #### [facility] [address] [place] [address] MCHC (RBC) [Mass/Vol] 34.1 g/dL Normal 31.4-36.0 [facility] Comment on above: Performed By: #### 2 [id number] #### [facility] [address] [place] [address] MCV (RBC) [Entitic vol] 87.9 fL Normal 80.0-100.0 [facility] Comment on above: Performed By: #### 2 [id number] #### [facility] [address] [place] [address] Monocytes (Bld) [#/Vol] 0.4 E9/L Normal 0.2-1.0 [facility] Comment on above: Performed By: #### 2 [id number] #### [facility] [address] [place] [address] Neutrophils (Bld) [#/Vol] 1.4 E9/L Low 2.0-7.5 [facility] Comment on above: Performed By: #### 2 595898 #### [facility] [address] [place] [address] Neutrophils/100 WBC (Bld) 52.6 % Normal 36.0-75.0 [facility] Comment on above: Performed By: #### 2 924993 #### [facility] [address] [place] [address] Platelet mean volume (Bld) [Entitic vol] 7.6 fL Normal 6.4-10.8 [facility] Comment on above: Performed By: #### 2 450451 #### [facility] [address] [place] [address] Platelets (Bld) [#/Vol] 182.0 E9/L Normal 150.0-500.0 [facility] Comment on above: Performed By: #### 2 152129 #### [facility] [address] [place] [address] RBC (Bld) [#/Vol] 2.6 E12/L Low 4.3-5.9 [facility] Comment on above: Performed By: #### 2 [id number] #### [facility] [address] [place] [address] WBC corrected for nucl RBC Auto (Bld) [#/Vol] 2.7 E9/L Low 4.0-11.0 [facility] Comment on above: Performed By: #### 2 [id number] #### [facility] [address] [place] [address] CHEMISTRYOrdered By: SYSTEM SYSTEM on 01-16-2024 Albumin [Mass/Vol] 3.0 g/dL Low 3.3 - 5.0 gm/dL [facility] Chem Albumin/Globulin [Mass ratio] 1.3 {ratio} Normal 1.1 - 2.2 [facility] ALP [Catalytic activity/Vol] 51 [iU]/d Normal 21 - 98 Int._Unit/L Remisol Chem ALT No additional P-5'-P [Catalytic activity/Vol] 8 [iU]/d Normal 6 - 46 Int._Unit/L [facility] Anion gap [Moles/Vol] 11 mmol/L Normal 6 - 16 mEq/L R emisol Chem AST [Catalytic activity/Vol] 14 [iU]/d Normal 5 - 43 Int._Unit/L [facility] Bilirubin [Mass/Vol] 0.6 mg/dL Normal 0.0 - 1 .1 mg/dL [facility] Chem Bilirubin.direct [Mass/Vol] 0.2 mg/dL Normal 0.0 - 0.4 mg/dL [facility] Bilirubin.indirect [Mass or moles/Vol] 0.4 mg/dL Normal 0.1 - 0.9 mg/dL [facility] Calcium [Mass/Vol] 8.0 mg/dL Low 8.9 - 11. 1 mg/dL [facility] Chloride [Moles/Vol] 103 mmol/L Normal 101 - 1 11 mmol/L [facility] CO2 [Moles/Vol] 27 mmol/L Normal 21 - 31 mmol/L [facility] Creatinine [Mass/Vol] 0.7 mg/dL Normal 0.5 - 1.3 mg/dL [facility] eGFR 100 mL/min/1.73 m2 Normal >=59mL/mi n/1 .73 m2 [facility] Globulin (S) [Mass/Vol] 2.3 g/dL Normal 1.4 - 4.0 gm/dL [facility] Glucose [Mass/Vol] 119 mg/dL Normal 55 - 199 mg/dL [facility] Potassium [Moles/Vol] 3.0 mmol/L Low 3.5 - 5.3 mmol/L [facility] Protein [Mass/Vol] 5.3 g/dL Low 6.0 - 7.8 gm/dL [facility] Sodium [Moles/Vol] 138 mmol/L Normal 135 - 145 mmol/L [facility] Urea nitrogen [Mass/Vol] 5 mg/dL Normal 5 - 21 mg/dL [facility] Urea nitrogen/Creatinine [Mass ratio] 7 mg/mg Low 10 - 20 [facility] HEMATOLOGYOrdered By: SYSTEM SYSTEM on 01-16-2024 Basophils/100 WBC (Bld) 2.2 % High 0.0 - 2.0 % Rem[facility] Heme Basophils/Leukocytes Auto (Bld) [Pure # fraction] 0.1 E9/L Normal 0.0 - 0.2 E9/L [facility] Eosinophils (Bld) [#/Vol] 0.1 E9/L Normal 0.0 - 0.5 E9/L [facility] Eosinophils/100 WBC (Bld) 5.5 % Normal 0.0 - 8.0 % [facility] Erythrocyte distribution width (RBC) [Ratio] 13.4 % Normal 10.9 - 14.2 % [facility] Hematocrit (Bld) [Volume fraction] 22.7 % Low 34.0 - 46.0 % [facility] Hemoglobin (Bld) [Mass/Vol] 7.7 g/dL Low 12.0 - 16.0 gm/dL [facility] Lymphocytes (Bld) [#/Vol] 0.7 E9/L Low 1.0 - 4.0 E9/L [facility] Lymphocytes/100 WBC (Bld) 25.1 % Normal 14.0 - 50.0 % [facility] MCH (RBC) [Entitic mass] 30.0 pg Normal 27.0 - 34.0 pg Rem[facility] Heme MCHC (RBC) [Mass/Vol] 34.1 g/dL Normal 31.4 - 36.0 gm/dL [facility]e MCV (RBC) [Entitic vol] 87.9 fL Normal 80.0 - 100.0 fL [facility] Monocytes (Bld) [#/Vol] 0.4 E9/L Normal 0.2 - 1.0 E9/L [facility] Monocytes/100 WBC (Bld) 14.6 % High 4.0 - 14.0 % [facility] Neutrophils (Bld) [#/Vol] 1.4 E9/L Low 2.0 - 7.5 E9/L [facility] Neutrophils/100 WBC (Bld) 52.6 % Normal 36.0 - 75.0 % [facility] Platelet mean volume (Bld) [Entitic vol] 7.6 fL Normal 6.4 - 10.8 fL [facility] Platelets (Bld) [#/Vol] 182.0 E9/L Normal 150.0 - 500.0 E9/L [facility] Heme RBC (Bld) [#/Vol] 2.6 E12/L Low 4.3 - 5.9 E12/L Remisol Heme WBC corrected for nucl RBC Auto (Bld) [#/Vol] 2.7 E9/L Low 4.0 - 11.0 E9/L Remisol Heme Hep Func Panelon 01-16-2024 Albumin [Mass/Vol] 3.0 g/dL Low 3.3-5.0 [facility] Comment on above: Performed By: #### 2 [id number] #### [facility] [address] [place] [address] Albumin/Globulin (S) [Mass conc ratio] 1.3 Normal 1.1-2.2 [facility] Comment on above: Performed By: #### 2 [id number] #### [facility] [address] [place] [address] ALP [Catalytic activity/Vol] 51 Int._Unit/L Normal 21-98 [facility] Comment on above: Performed By: #### 2 [id number] #### [facility] [address] [place] [address] ALT No additional P-5'-P [Catalytic activity/Vol] 8 Int._Unit/L Normal 6-46 [facility] Comment on above: Performed By: #### 2 [id number] #### [facility] [address] [place] [address] AST [Catalytic activity/Vol] 14 Int._Unit/L Normal 5-43 [facility] Comment on above: Performed By: #### 2 [id number] #### [facility] [address] [place] [address] Bilirubin [Mass/Vol] 0.6 mg/dL Normal 0.0-1.1 [facility] Comment on above: Performed By: #### 2 [id number] #### [facility] [address] [place] [address] Bilirubin.direct [Mass/Vol] 0.2 mg/dL Normal 0.0-0.4 [facility] Comment on above: Performed By: #### 2 423597 #### [facility] [address] [place] [address] Bilirubin.indirect [Mass or moles/Vol] 0.4 mg/dL Normal 0.1-0.9 [facility] Comment on above: Performed By: #### 2 [id number] #### [facility] [address] [place] [address] Globulin (S) [Mass/Vol] 2.3 g/dL Normal 1.4-4.0 [facility] Comment on above: Performed By: #### 2 106089 #### [facility] [address] [place] [address] Protein [Mass/Vol] 5.3 g/dL Low 6.0-7.8 [facility] Comment on above: Performed By: #### 2 474408 #### [facility] [address] [place] [address] eGFRon 01-16-2024 eGFR 100 mL/min/1.73 m2 Normal >=59 [facility] Comment on above: Order Comment: Order added by Discern Expert. Performed By: #### 1 [id number] #### [facility] [address] [place] [address] BMPon 01-09-2024 Anion gap [Moles/Vol] 13 mmol/L Normal 6-16 [facility] Comment on above: Performed By: #### 2 504053 #### [facility] [address] [place] [address] Calcium [Mass/Vol] 8.6 mg/dL Low 8.9-11.1 [facility] Comment on above: Performed By: #### 2 281839 #### [facility] [address] [place] [address] Chloride [Moles/Vol] 103 mmol/L Normal 101-111 [facility] Comment on above: Performed By: #### 2 022035 #### [facility] [address] [place] [address] CO2 [Moles/Vol] 28 mmol/L Normal 21-[address] [facility] Comment on above: Performed By: #### 2 944431 #### [facility] [address] [place] [address] Creatinine [Mass/Vol] 0.7 mg/dL Normal 0.5-1.3 [facility] Comment on above: Performed By: #### 2 429732 #### [facility] [address] [place] [address] Glucose [Mass/Vol] 150 mg/dL Normal 55-199 [facility] Comment on above: Performed By: #### 2 716309 #### [facility] [address] [place] [address] Potassium [Moles/Vol] 2.7 mmol/L Abnormal 3.5-5.3 [facility] Comment on above: Result Comment: Crit ical Result Verified by Repeat Analysis Critical Result S_K:2.7 Called to and read back by: DR CHAVEZ at: 01/09/2024 14:55:36 by:MERA Performed By: #### 2 [id number] #### [facility] [address] [place] [address] Sodium [Moles/Vol] 141 mmol/L Normal 135-145 [facility] Comment on above: Performed By: #### 2 198331 #### [facility] [address] [place] [address] Urea nitrogen [Mass/Vol] 8 mg/dL Normal 5-21 [facility] Comment on above: Performed By: #### 2 084177 #### [facility] [address] [place] [address] Urea nitrogen/Creatinine [Mass ratio] 11 No Units Normal 10-20 [facility] Comment on above: Performed By: #### 2 199105 #### [facility] [address] [place] [address] CBC w/ Auto Diffon 4 Basophils/100 WBC (Bld) 1.1 % Normal 0.0-2.0 [facility] Comment on above: Performed By: #### 2 214130 #### [facility] [address] [place] [address] Basophils/Leukocytes Auto (Bld) [Pure # fraction] 0.1 E9/L Normal 0.0-0.2 [facility] Comment on above: Performed By: #### 2 679658 #### [facility] [address] [place] [address] Eosinophils (Bld) [#/Vol] 0.2 E9/L Normal 0.0-0.5 [facility] Comment on above: Performed By: #### 2 629810 #### [facility] [address] [place] [address] Eosinophils/100 WBC (Bld) 2.7 % Normal 0.0-8.0 [facility] Comment on above: Performed By: #### 2 181376 #### [facility] [address] [place] [address] Erythrocyte distribution width (RBC) [Ratio] 13.4 % Normal 10.9-14.2 [facility] Comment on above: Performed By: #### 2 617025 #### [facility] [address] [place] [address] Hematocrit (Bld) [Volume fraction] 28.5 % Low 34.0-46.0 [facility] Comment on above: Performed By: #### 2 202342 #### [facility] [address] [place] [address] Hemoglobin (Bld) [Mass/Vol] 9.7 g/dL Low 12.0-16.0 [facility] Comment on above: Performed By: #### 2 213964 #### [facility] [address] [place] [address] Lymphocytes (Bld) [#/Vol] 1.1 E9/L Normal 1.0-4.0 [facility] Comment on above: Performed By: #### 2 826008 #### [facility] [address] [place] [address] Lymphocytes/100 WBC (Bld) 13.1 % Low 14.0-50.0 [facility] Comment on above: Performed By: #### 2 302657 #### [facility] [address] [place] [address] MCH (RBC) [Entitic mass] 30.4 pg Normal 27.0-34.0 [facility] Comment on above: Performed By: #### 2 083999 #### [facility] [address] [place] [address] MCHC (RBC) [Mass/Vol] 34.0 g/dL Normal 31.4-36.0 [facility] Comment on above: Performed By: #### 2 057927 #### [facility] [address] [place] [address] MCV (RBC) [Entitic vol] 89.2 fL Normal 80.0-100.0 [facility] Comment on above: Performed By: #### 2 901919 #### [facility] [address] [place] [address] Monocytes (Bld) [#/Vol] 0.9 E9/L Normal 0.2-1.0 [facility] Comment on above: Performed By: #### 2 250190 #### [facility] [address] [place] [address] Neutrophils (Bld) [#/Vol] 6.3 E9/L Normal 2.0-7.5 [facility] Comment on above: Performed By: #### 2 928394 #### [facility] [address] [place] [address] Neutrophils/100 WBC (Bld) 72.6 % Normal 36.0-75.0 [facility] Comment on above: Performed By: #### 2 682099 #### [facility] [address] [place] [address] Platelet mean volume (Bld) [Entitic vol] 7.8 fL Normal 6.4-10.8 [facility] Comment on above: Performed By: #### 2 604159 #### [facility] [address] [place] [address] Platelets (Bld) [#/Vol] 263.0 E9/L Normal 150.0-500.0 [facility] Comment on above: Performed By: #### 2 721010 #### [facility] [address] [place] [address] RBC (Bld) [#/Vol] 3.2 E12/L Low 4.3-5.9 [facility] Comment on above: Performed By: #### 2 289700 #### [facility] [address] [place] [address] WBC corrected for nucl RBC Auto (Bld) [#/Vol] 8.7 E9/L Normal 4.0-11.0 [facility] Comment on above: Performed By: #### 2 314228 #### [facility] [address] [place] [address] CHEMISTRYOrdered By: SYSTEM SYSTEM on 01-09-2024 Albumin [Mass/Vol] 3.4 g/dL Normal 3.3 - 5.0 gm/dL [facility] Albumin/Globulin [Mass ratio] 1.4 {ratio} Normal 1.1 - 2.2 [facility] ALP [Catalytic activity/Vol] 71 [iU]/d Normal 21 - 98 Int._Unit/L [facility] Chem ALT No additional P-5'-P [Catalytic activity/Vol] 18 [iU]/d Normal 6 - 46 Int._Unit/L [facility] Anion gap [Moles/Vol] 13 mmol/L Normal 6 - 16 mEq/L R emisol Chem AST [Catalytic activity/Vol] 19 [iU]/d Normal 5 - 43 Int._Unit/L [facility] Bilirubin [Mass/Vol] 0.9 mg/dL Normal 0.0 - 1 .1 mg/dL [facility] Bilirubin.direct [Mass/Vol] 0.3 mg/dL Normal 0.0 - 0.4 mg/dL [facility] Bilirubin.indirect [Mass or moles/Vol] 0.6 mg/dL Normal 0.1 - 0.9 mg/dL [facility] Calcium [Mass/Vol] 8.6 mg/dL Low 8.9 - 11. 1 mg/dL [facility] Chloride [Moles/Vol] 103 mmol/L Normal 101 - 1 11 mmol/L [facility] CO2 [Moles/Vol] 28 mmol/L Normal 21 - 31 mmol/L [facility] Creatinine [Mass/Vol] 0.7 mg/dL Normal 0.5 - 1.3 mg/dL [facility] eGFR 100 mL/min/1.73 m2 Normal >=59mL/mi n/1 .73 m2 [facility] Globulin (S) [Mass/Vol] 2.5 g/dL Normal 1.4 - 4.0 gm/dL [facility] Glucose [Mass/Vol] 150 mg/dL Normal 55 - 199 mg/dL [facility] Potassium [Moles/Vol] 2.7 mmol/L Invalid Interpretation Code 3.5 - 5.3 mmol/L [facility] Comment on above: Result Comment: Crit ical Result Verified by Repeat Analysis Critical Result S_K:2.7 Called to and read back by: DR CHAVEZ at: 01/09/2024 14:55:36 by:CMK Protein [Mass/Vol] 5.9 g/dL Low 6.0 - 7.8 gm/dL [facility] Sodium [Moles/Vol] 141 mmol/L Normal 135 - 145 mmol/L [facility] Urea nitrogen [Mass/Vol] 8 mg/dL Normal 5 - 21 mg/dL [facility] Urea nitrogen/Creatinine [Mass ratio] 11 mg/mg Normal 10 - 20 [facility] HEMATOLOGYOrdered By: SYSTEM SYSTEM on 01-09-2024 Basophils/100 WBC (Bld) 1.1 % Normal 0.0 - 2.0 % [facility] Heme Basophils/Leukocytes Auto (Bld) [Pure # fraction] 0.1 E9/L Normal 0.0 - 0.2 E9/L [facility] Heme Eosinophils (Bld) [#/Vol] 0.2 E9/L Normal 0.0 - 0.5 E9/L [facility] Heme Eosinophils/100 WBC (Bld) 2.7 % Normal 0.0 - 8.0 % [facility] Heme Erythrocyte distribution width (RBC) [Ratio] 13.4 % Normal 10.9 - 14.2 % [facility]e Hematocrit (Bld) [Volume fraction] 28.5 % Low 34.0 - 46.0 % [facility] Heme Hemoglobin (Bld) [Mass/Vol] 9.7 g/dL Low 12.0 - 16.0 gm/dL [facility] Heme Lymphocytes (Bld) [#/Vol] 1.1 E9/L Normal 1.0 - 4.0 E9/L [facility] Heme Lymphocytes/100 WBC (Bld) 13.1 % Low 14.0 - 50.0 % [facility] Heme MCH (RBC) [Entitic mass] 30.4 pg Normal 27.0 - 34.0 pg [facility] Heme MCHC (RBC) [Mass/Vol] 34.0 g/dL Normal 31.4 - 36.0 gm/dL [facility] Heme MCV (RBC) [Entitic vol] 89.2 fL Normal 80.0 - 100.0 fL [facility] Heme Monocytes (Bld) [#/Vol] 0.9 E9/L Normal 0.2 - 1.0 E9/L [facility] Heme Monocytes/100 WBC (Bld) 10.5 % Normal 4.0 - 14.0 % [facility] Heme Neutrophils (Bld) [#/Vol] 6.3 E9/L Normal 2.0 - 7.5 E9/L [facility] Heme Neutrophils/100 WBC (Bld) 72.6 % Normal 36.0 - 75.0 % [facility] Heme Platelet mean volume (Bld) [Entitic vol] 7.8 fL Normal 6.4 - 10.8 fL [facility] Heme Platelets (Bld) [#/Vol] 263.0 E9/L Normal 150.0 - 500.0 E9/L [facility] Heme RBC (Bld) [#/Vol] 3.2 E12/L Low 4.3 - 5.9 E12/L [facility] Heme WBC corrected for nucl RBC Auto (Bld) [#/Vol] 8.7 E9/L Normal 4.0 - 11.0 E9/L [facility] Heme Hep Func Panelon 01-09-2024 Albumin [Mass/Vol] 3.4 g/dL Normal 3.3-5.0 [facility] Comment on above: Performed By: #### 2 [id number] #### [facility] [address] [place] [address] Albumin/Globulin (S) [Mass conc ratio] 1.4 Normal 1.1-2.2 [facility] Comment on above: Performed By: #### 2 198484 #### [facility] [address] [place] [address] ALP [Catalytic activity/Vol] 71 Int._Unit/L Normal 21-98 [facility] Comment on above: Performed By: #### 2 397761 #### [facility] [address] [place] [address] ALT No additional P-5'-P [Catalytic activity/Vol] 18 Int._Unit/L Normal 6-46 [facility] Comment on above: Performed By: #### 2 574926 #### [facility] [address] [place] [address] AST [Catalytic activity/Vol] 19 Int._Unit/L Normal 5-43 [facility] Comment on above: Performed By: #### 2 016509 #### [facility] [address] [place] [address] Bilirubin [Mass/Vol] 0.9 mg/dL Normal 0.0-1.1 [facility] Comment on above: Performed By: #### 2 249209 #### [facility] [address] [place] [address] Bilirubin.direct [Mass/Vol] 0.3 mg/dL Normal 0.0-0.4 [facility] Comment on above: Performed By: #### 2 644933 #### [facility] [address] [place] [address] Bilirubin.indirect [Mass or moles/Vol] 0.6 mg/dL Normal 0.1-0.9 [facility] Comment on above: Performed By: #### 2 918372 #### [facility] [address] [place] [address] Globulin (S) [Mass/Vol] 2.5 g/dL Normal 1.4-4.0 [facility] Comment on above: Performed By: #### 2 750262 #### [facility] [address] [place] [address] Protein [Mass/Vol] 5.9 g/dL Low 6.0-7.8 [facility] Comment on above: Performed By: #### 2 [id number] #### [facility] [address] [place] [address] Physician Orderon 01-09-2024 Physician Order [id number] Normal [facility] eGFRon 01-09-2024 eGFR 100 mL/min/1.73 m2 Normal >=59 [facility] Comment on above: Order Comment: Order added by Discern Expert. Performed By: #### 1 [id number] #### [facility] [address] [place] [address] ANION GAPon 01-04-2024 Anion gap [Moles/Vol] 13.0 mmol/L Normal 8.0-16.0 [facility] Comment on above: Result Comment: ANIO N GAP = Sodium -(Chloride + CO2) Performed By: #### A ARCELIAON, CBCWD, EGFR1, BMP #### [facility] [employer] [facility] [address] [place] [address] BASIC METABOL PANELon 2023 Calcium [Mass/Vol] 8.6 mg/dL Normal 8.5-10.5 [facility] Comment on above: Performed By: #### A IVANA RICHARDSON, EGFR1, BMP #### [facility] [address] [place] [address] Chloride [Moles/Vol] 107 mmol/L Normal 98-111 [facility] Comment on above: Performed By: #### A IVANA RICHARDSON, EGFR1, BMP #### [facility] [facility] [address] [place] [address] CO2 [Moles/Vol] 24 mmol/L Normal 23-33 [facility] Comment on above: Performed By: #### A IVANA RICHARDSON, EGFR1, BMP #### [facility] [facility] [facility] [address] [place] [address] Creatinine [Mass/Vol] 0.6 mg/dL Normal 0.4-1.2 [facility] Comment on above: Performed By: #### A IVANA RICHARDSON, EGFR1, BMP #### [facility] [facility] [facility] [address] [place] [address] Glucose [Mass/Vol] 92 mg/dL Normal 70-108 [facility] Comment on above: Performed By: #### A IVANA RICHARDSON, EGFR1, BMP #### [facility] [facility] [address] [place] [address] Potassium [Moles/Vol] 3.6 mmol/L Normal 3.5-5.2 [facility] Comment on above: Performed By: #### A IVANA RICHARDSON, EGFR1, BMP #### [facility] [address] [place] [address] Sodium [Moles/Vol] 144 mmol/L Normal 135-145 [facility] Comment on above: Performed By: #### A IVANA RICHARDSON, EGFR1, BMP #### [facility] [address] [place] [address] Urea nitrogen [Mass/Vol] 19 mg/dL Normal 7-22 [facility] Comment on above: Performed By: #### A IVANA RICHARDSON, EGFR1, BMP #### [address] [address] CBC WITH DIFFERENTIALon 12-16 ABS BASOPHILS 0.0 thou/mm3 Normal 0.0-0.1 [facility] Comment on above: Performed By: #### A IVANA RICHARDSON, EGFR1, BMP #### [address] [address] ABS EOSINOPHILS 0.2 thou/mm3 Normal 0.0-0.4 [facility] Comment on above: Performed By: #### A IVANA RICHARDSON, EGFR1, BMP #### [address] [address] ABS IMMATURE GRANS (IG) 0.05 thou/mm3 Normal 0.00-0.07 [facility] Comment on above: Performed By: #### A IVANA RICHARDSON, EGFR1, BMP #### [address] [address] ABS LYMPHOCYTES 1.7 thou/mm3 Normal 1.0-4.8 [facility] Comment on above: Performed By: #### A IVANA RICHARDSON, EGFR1, BMP #### [address] [address] ABS MONOCYTES 0.8 thou/mm3 Normal 0.4-1.3 [facility] Comment on above: Performed By: #### A IVANA RICHARDSON, EGFR1, BMP #### [address] [address] ABS NEUTROPHILS 3.1 thou/mm3 Normal 1.8-7.7 [facility] Comment on above: Performed By: #### A IVANA RICHARDSON, EGFR1, BMP #### [address] [address] Basophils/100 WBC (Bld) 0.5 % Normal [facility] Comment on above: Performed By: #### A IVANA RICHARDSON, EGFR1, BMP #### [address] [address] Eosinophils/100 WBC (Bld) 3.1 % Normal [facility] Comment on above: Performed By: #### A IVANA RICHARDSON EGFR1, BMP #### [place] [address] Erythrocyte distribution width (RBC) [Ratio] 12.8 % Normal 11.5-14.5 [facility] Comment on above: Performed By: #### A IVANA RICHRADSON EGFR1, BMP #### [place] [address] Hematocrit (Bld) [Volume fraction] 31.3 % Low 37.0-47.0 [facility] Comment on above: Performed By: #### A IVANA RICHARDSON EGFR1, BMP #### [place] [address] Hemoglobin (Bld) [Mass/Vol] 10.2 g/dL Low 12.0-16.0 [facility] Comment on above: Performed By: #### A IVANA RICHARDSON EGFR1, BMP #### [place] [address] IMMATURE GRANS (IG) 0.9 % Normal [facility] Comment on above: Performed By: #### A IVANA RICHARDSON EGFR1, BMP #### [place] [address] Lymphocytes/100 WBC (Bld) 29.5 % Normal [facility] Comment on above: Performed By: #### A IVANA RICHARDSON EGFR1, BMP #### [place] [address] MCH (RBC) [Entitic mass] 29.8 pg Normal 26.0-33.0 [facility] Comment on above: Performed By: #### A IVANA RICHARDSON EGFR1, BMP #### [place] [address] MCHC (RBC) [Mass/Vol] 32.6 g/dL Normal 32.2-35.5 [facility] Comment on above: Performed By: #### A IVANA RICHARDSON EGFR1, BMP #### [employer] [address] [place] [address] MCV (RBC) [Entitic vol] 91.5 fL Normal 81.0-99.0 [facility] Comment on above: Performed By: #### A IVANA RICHARDSON, EGFR1, BMP #### [address] [address] Monocytes/100 WBC (Bld) 13.3 % Normal [facility] Comment on above: Performed By: #### A IVANA RICHARDSON, EGFR1, BMP #### [address] [address] Neutrophils/100 WBC (Bld) 52.7 % Normal [facility] Comment on above: Performed By: #### A IVANA RICHARDSON, EGFR1, BMP #### [address] [address] NRBC 0 /100 wbc Normal [facility] Comment on above: Performed By: #### A IVANA RICHARDSON, EGFR1, BMP #### [facility] [employer] [address] [address] PLATELET 199 thou/mm3 Normal 130-400 [facility] Comment on above: Performed By: #### A IVANA RICHARDSON, EGFR1, BMP #### [address] [address] Platelet mean volume (Bld) [Entitic vol] 10.0 fL Normal 9.4-12.4 [facility] Comment on above: Performed By: #### A IVANA RICHARDSON, EGFR1, BMP #### [facility] [address] [address] RBC 3.42 mill/mm3 Low 4.20-5.40 [facility] Comment on above: Performed By: #### A IVANA RICHARDSON, EGFR1, BMP #### [facility] [employer] [address] [address] RDW-SD 42.5 fL Normal 35.0-45.0 [facility] Comment on above: Performed By: #### A IVANA RICHARDSON, EGFR1, BMP #### [facility] [address] [place] [address] WBC 5.8 thou/mm3 Normal 4.8-10.8 [facility] Comment on above: Performed By: #### A IVANA RICHARDSON, EGFR1, BMP #### [employer] [facility] [employer] [address] [place] [address] GFR, ESTIMATEDon 01-04-2024 GFR/1.73 sq M.predicted MDRD (S/P/Bld) [Vol rate/Area] mL/min/{1.73_m2} Normal >60 [facility] Comment on above: Result Comment: Pedi atric calculator link https://www.kidney.org/professionals/kdoqi/gfr_calculatorped Effective Apr 19, 2022 These results are not intended for use in patients <18 years of age. eGFR results are calculated without a race factor using the 2020 CKD-EPI equation. Careful clinical correlation is recommended, particularly when comparing to results calculated using previous equations. The CKD-EPI equation is less accurate in patients with extremes of muscle mass, extra-renal metabolism of creatinine, excessive creatine ingestion, or following therapy that affects renal tubular secretion. Performed By: #### A IVANA RICHARDSON, EGFR1, BMP #### [employer] [address] [place] [address] ANION GAPon 01-03-2024 Anion gap [Moles/Vol] 11.0 mmol/L Normal 8.0-16.0 [facility] Comment on above: Result Comment: ANIO N GAP = Sodium -(Chloride + CO2) Performed By: #### A IVANA RICHARDSON, EGFR1, BMP #### [employer] [address] [place] [address] BASIC METABOL PANELon 2023 Calcium [Mass/Vol] 8.6 mg/dL Normal 8.5-10.5 [facility] Comment on above: Performed By: #### A IVANA RICHARDSON, EGFR1, BMP #### [employer] [address] [place] [address] Chloride [Moles/Vol] 108 mmol/L Normal 98-111 [facility] Comment on above: Performed By: #### A IVANA RICHARDSON, EGFR1, BMP #### [facility] [facility] [facility] [address] [place] [address] CO2 [Moles/Vol] 20 mmol/L Low 23-33 [facility] Comment on above: Performed By: #### A IVANA RICHARDSON, EGFR1, BMP #### [facility] [facility] [facility] [address] [place] [address] Creatinine [Mass/Vol] 0.6 mg/dL Normal 0.4-1.2 [facility] Comment on above: Performed By: #### A IVANA RICHARDSON, EGFR1, BMP #### [facility] [facility] [facility] [address] [place] [address] Glucose [Mass/Vol] 102 mg/dL Normal 70-108 [facility] Comment on above: Performed By: #### A IVANA RICHARDSON, EGFR1, BMP #### [facility] [facility] [address] [place] [address] Potassium [Moles/Vol] 3.7 mmol/L Normal 3.5-5.2 [facility] Comment on above: Performed By: #### IVANA SALDIVAR, EGFR1, BMP #### [facility] [employer] [facility] [address] [place] [address] Sodium [Moles/Vol] 139 mmol/L Normal 135-145 [facility] Comment on above: Performed By: #### IVANA SALDIVAR, EGFR1, BMP #### [facility] [facility] [facility] [address] [place] [address] Urea nitrogen [Mass/Vol] 22 mg/dL Normal 7-22 [facility] Comment on above: Performed By: #### IVANA SALDIVAR, EGFR1, BMP #### [facility] [facility] [facility] [address] [place] [address] C-REACTIVE PROTEINon 024 C-REACTIVE PROTEIN 3.37 mg/dl High 0.00-1.00 [facility] Comment on above: Performed By: #### IVANA SALDIVAR, EGFR1, BMP #### [employer] [address] [place] [address] CBC WITH DIFFERENTIALon 12-16 ABS BASOPHILS 0.0 thou/mm3 Normal 0.0-0.1 [facility] Comment on above: Performed By: #### A IVANA RICHARDSON, EGFR1, BMP #### [address] [address] ABS EOSINOPHILS 0.0 thou/mm3 Normal 0.0-0.4 [facility] Comment on above: Performed By: #### A IVANA RICHARDSON, EGFR1, BMP #### [address] [address] ABS IMMATURE GRANS (IG) 0.05 thou/mm3 Normal 0.00-0.07 [facility] Comment on above: Performed By: #### A IVANA RICHARDSON, EGFR1, BMP #### [address] [address] [address] ABS LYMPHOCYTES 1.2 thou/mm3 Normal 1.0-4.8 [facility] Comment on above: Performed By: #### A IVANA RICHARDSON, EGFR1, BMP #### [address] [address] ABS MONOCYTES 0.6 thou/mm3 Normal 0.4-1.3 [facility] Comment on above: Performed By: #### A IVANA RICHARDSON, EGFR1, BMP #### [address] [address] ABS NEUTROPHILS 4.0 thou/mm3 Normal 1.8-7.7 [facility] Comment on above: Performed By: #### A IVANA RICHARDSON, EGFR1, BMP #### [address] [address] Basophils/100 WBC (Bld) 0.2 % Normal [facility] Comment on above: Performed By: #### A IVANA RICHARDSON, EGFR1, BMP #### [address] [address] Eosinophils/100 WBC (Bld) 0.5 % Normal [facility] Comment on above: Performed By: #### A IVANA RICHARDSON, EGFR1, BMP #### [address] [place] [address] Erythrocyte distribution width (RBC) [Ratio] 12.7 % Normal 11.5-14.5 [facility] Comment on above: Performed By: #### A IVANA RICHARDSON, EGFR1, BMP #### [facility] [address] [place] [address] Hematocrit (Bld) [Volume fraction] 32.2 % Low 37.0-47.0 [facility] Comment on above: Performed By: #### A IVANA RICHARDSON, EGFR1, BMP #### [facility] [address] [place] [address] Hemoglobin (Bld) [Mass/Vol] 10.3 g/dL Low 12.0-16.0 [facility] Comment on above: Performed By: #### A IVANA RICHARDSON, EGFR1, BMP #### [facility] [address] [place] [address] IMMATURE GRANS (IG) 0.9 % Normal [facility] Comment on above: Performed By: #### A IVANA RICHARDSON, EGFR1, BMP #### [facility] [address] [place] [address] Lymphocytes/100 WBC (Bld) 19.5 % Normal [facility] Comment on above: Performed By: #### A IVANA RICHARDSON, EGFR1, BMP #### [facility] [address] [address] MCH (RBC) [Entitic mass] 29.8 pg Normal 26.0-33.0 [facility] Comment on above: Performed By: #### A IVANA RICHARDSON, EGFR1, BMP #### [facility] [address] [place] [address] MCHC (RBC) [Mass/Vol] 32.0 g/dL Low 32.2-35.5 [facility] Comment on above: Performed By: #### A IVANA RICHARDSON, EGFR1, BMP #### [facility] [address] [place] [address] MCV (RBC) [Entitic vol] 93.1 fL Normal 81.0-99.0 [facility] Comment on above: Performed By: #### A IVANA RICHARDSON, EGFR1, BMP #### [facility] [address] [place] [address] Monocytes/100 WBC (Bld) 10.8 % Normal [facility] Comment on above: Performed By: #### A IVANA RICHARDSON, EGFR1, BMP #### [facility] [address] [place] [address] Neutrophils/100 WBC (Bld) 68.1 % Normal [facility] Comment on above: Performed By: #### A IVANA RICHARDSON, EGFR1, BMP #### [facility] [address] [place] [address] NRBC 0 /100 wbc Normal [facility] Comment on above: Performed By: #### A IVANA RICHARDSON, EGFR1, BMP #### [facility] [address] [place] [address] PLATELET 207 thou/mm3 Normal 130-400 [facility] Comment on above: Performed By: #### A IVANA RICHARDSON, EGFR1, BMP #### [facility] [address] [place] [address] Platelet mean volume (Bld) [Entitic vol] 10.0 fL Normal 9.4-12.4 [facility] Comment on above: Performed By: #### A IVANA RICHARDSON, EGFR1, BMP #### [facility] [address] [place] [address] RBC 3.46 mill/mm3 Low 4.20-5.40 [facility] Comment on above: Performed By: #### A IVANA RICHARDSON, EGFR1, BMP #### [facility] [address] [place] [address] RDW-SD 42.6 fL Normal 35.0-45.0 [facility] Comment on above: Performed By: #### A DEBRA CBCRADHA, EGFR1, BMP #### [facility] [address] [place] [address] WBC 5.9 thou/mm3 Normal 4.8-10.8 [facility] Comment on above: Performed By: #### A IVANA RICHARDSON, EGFR1, BMP #### [facility] [address] [place] [address] FERRITINon 01-03-2024 Ferritin [Mass/Vol] 1167 ng/mL High 10-291 [facility] Comment on above: Performed By: #### A IVANA RICHARDSON, EGFR1, BMP #### [facility] [address] [place] [address] GFR, ESTIMATEDon 01-03-2024 GFR/1.73 sq M.predicted MDRD (S/P/Bld) [Vol rate/Area] mL/min/{1.73_m2} Normal >60 [facility] Comment on above: Result Comment: Franki atric calculator link https://www.kidney.org/professionals/kdoqi/gfr_calculatorped Effective Apr 19, 2022 These results are not intended for use in patients <18 years of age. eGFR results are calculated without a race factor using the 2020 CKD-EPI equation. Careful clinical correlation is recommended, particularly when comparing to results calculated using previous equations. The CKD-EPI equation is less accurate in patients with extremes of muscle mass, extra-renal metabolism of creatinine, excessive creatine ingestion, or following therapy that affects renal tubular secretion. Performed By: #### A IVANA RICHARDSON, EGFR1, BMP #### [facility] [address] [place] [address] IRONon 01-03-2024 Iron [Mass/Vol] 85 ug/dL Normal 50-170 [facility] Comment on above: Performed By: #### A IVANA RICHARDSON, EGFR1, BMP #### [facility] [address] [place] [address] IRON BINDING CAPACITYon 12-16 IRON BINDING CAPACITY 178 ug/dL Normal 171-450 [facility] Comment on above: Performed By: #### A IVANA RICHARDSON, EGFR1, BMP #### [facility] [address] [place] [address] IRON SATURATIONon 01-03-2024 IRON SATURATION 48 % Normal 20-50 [facility] Comment on above: Performed By: #### A IVANA RICHARDSON, EGFR1, BMP #### [facility] [address] [place] [address] VITAMIN B12 FOLATEon 024 Cobalamin (Vitamin B12) [Mass/Vol] 461 pg/mL Normal 211-911 [facility] Comment on above: Performed By: #### A IVANA RICHARDSON, EGFR1, BMP #### [facility] [address] [place] [address] FOLATE 8.2 ng/mL Normal 4.8-24.2 [facility] Comment on above: Performed By: #### A IVANA RICHARDSON, EGFR1, BMP #### [facility] [address] [place] [address] ANION GAPon 01-02-2024 Anion gap [Moles/Vol] 10.0 mmol/L Normal 8.0-16.0 [facility] Comment on above: Result Comment: ANIO N GAP = Sodium -(Chloride + CO2) Performed By: #### A IVANA RICHARDSON, EGFR1, BMP #### [facility] [address] [place] [address] BASIC METABOL PANELon 2023 Calcium [Mass/Vol] 8.4 mg/dL Low 8.5-10.5 [facility] Comment on above: Performed By: #### A IVANA RICHARDSON, EGFR1, BMP #### [facility] [address] [place] [address] Chloride [Moles/Vol] 108 mmol/L Normal 98-111 [facility] Comment on above: Performed By: #### A IVANA RICHARDSON, EGFR1, BMP #### [facility] [address] [place] [address] CO2 [Moles/Vol] 20 mmol/L Low 23-33 [facility] Comment on above: Performed By: #### A IVANA RICHARDSON, EGFR1, BMP #### [facility] [address] [place] [address] Creatinine [Mass/Vol] 0.6 mg/dL Normal 0.4-1.2 [facility] Comment on above: Performed By: #### A IVANA RICHARDSON, EGFR1, BMP #### [facility] [address] [place] [address] Glucose [Mass/Vol] 127 mg/dL High 70-108 [facility] Comment on above: Performed By: #### A IVANA RICHARDSON, EGFR1, BMP #### [facility] [address] [place] [address] Potassium [Moles/Vol] 4.0 mmol/L Normal 3.5-5.2 [facility] Comment on above: Performed By: #### A IVANA RICHARDSON, EGFR1, BMP #### [address] [address] Sodium [Moles/Vol] 138 mmol/L Normal 135-145 [facility] Comment on above: Performed By: #### A IVANA RICHARDSON, EGFR1, BMP #### [address] [address] Urea nitrogen [Mass/Vol] 17 mg/dL Normal 7-22 [facility] Comment on above: Performed By: #### A IVANA RICHARDSON, EGFR1, BMP #### [place] [address] CBC WITH DIFFERENTIALon 12-16 ABS BASOPHILS 0.0 thou/mm3 Normal 0.0-0.1 [facility] Comment on above: Performed By: #### A IVANA RICHARDSON, EGFR1, BMP #### [address] [address] ABS EOSINOPHILS 0.0 thou/mm3 Normal 0.0-0.4 [facility] Comment on above: Performed By: #### A IVANA RICHARDSON, EGFR1, BMP #### [address] [address] ABS IMMATURE GRANS (IG) 0.03 thou/mm3 Normal 0.00-0.07 [facility] Comment on above: Performed By: #### A IVANA RICHARDSON, EGFR1, BMP #### [address] [address] ABS LYMPHOCYTES 0.4 thou/mm3 Low 1.0-4.8 [facility] Comment on above: Performed By: #### A IVANA RICHARDSON, EGFR1, BMP #### [facility] [address] [place] [address] ABS MONOCYTES 0.3 thou/mm3 Low 0.4-1.3 [facility] Comment on above: Performed By: #### A IVANA RICHARDSON, EGFR1, BMP #### [facility] [address] [address] ABS NEUTROPHILS 3.4 thou/mm3 Normal 1.8-7.7 [facility] Comment on above: Performed By: #### A IVANA RICHARDSON EGFR1, BMP #### [address] [address] Basophils/100 WBC (Bld) 0.0 % Normal [facility] Comment on above: Performed By: #### A IVANA RICHARDSON EGFR1, BMP #### [facility] [address] [place] [address] Eosinophils/100 WBC (Bld) 0.0 % Normal [facility] Comment on above: Performed By: #### A IVANA RICHARDSON EGFR1, BMP #### [address] [address] Erythrocyte distribution width (RBC) [Ratio] 12.6 % Normal 11.5-14.5 [facility] Comment on above: Performed By: #### A IVANA RICHARDSON, EGFR1, BMP #### [facility] [address] [address] Hematocrit (Bld) [Volume fraction] 30.1 % Low 37.0-47.0 [facility] Comment on above: Performed By: #### A IVANA RICHARDSON, EGFR1, BMP #### [facility] [address] [place] [address] Hemoglobin (Bld) [Mass/Vol] 10.1 g/dL Low 12.0-16.0 [facility] Comment on above: Performed By: #### A IVANA RICHARDSON, EGFR1, BMP #### [address] [address] IMMATURE GRANS (IG) 0.7 % Normal [facility] Comment on above: Performed By: #### A IVANA RICHARDSON, EGFR1, BMP #### [facility] [address] [address] Lymphocytes/100 WBC (Bld) 10.1 % Normal [facility] Comment on above: Performed By: #### A IVANA RICHARDSON, EGFR1, BMP #### [address] [address] MCH (RBC) [Entitic mass] 30.2 pg Normal 26.0-33.0 [facility] Comment on above: Performed By: #### A IVANA RICHARDSON, EGFR1, BMP #### [address] [address] MCHC (RBC) [Mass/Vol] 33.6 g/dL Normal 32.2-35.5 [facility] Comment on above: Performed By: #### A IVANA RICHARDSON, EGFR1, BMP #### [address] [address] MCV (RBC) [Entitic vol] 90.1 fL Normal 81.0-99.0 [facility] Comment on above: Performed By: #### A IVANA RICHARDSON, EGFR1, BMP #### [address] [address] Monocytes/100 WBC (Bld) 6.4 % Normal [facility] Comment on above: Performed By: #### A IVANA RICHARDSON, EGFR1, BMP #### [address] [address] Neutrophils/100 WBC (Bld) 82.8 % Normal [facility] Comment on above: Performed By: #### A IVANA RICHARDSON, EGFR1, BMP #### [facility] [address] [address] NRBC 0 /100 wbc Normal [facility] Comment on above: Performed By: #### A IVANA RICHARDSON, EGFR1, BMP #### [facility] [address] [place] [address] PLATELET 189 thou/mm3 Normal 130-400 [facility] Comment on above: Performed By: #### A IVANA RICHARDSON, EGFR1, BMP #### [facility] [address] [address] Platelet mean volume (Bld) [Entitic vol] 9.4 fL Normal 9.4-12.4 [facility] Comment on above: Performed By: #### A IVANA RICHARDSON, EGFR1, BMP #### [facility] [address] [place] [address] RBC 3.34 mill/mm3 Low 4.20-5.40 [facility] Comment on above: Performed By: #### A IVANA RICHARDSON, EGFR1, BMP #### [facility] [address] [place] [address] RDW-SD 41.2 fL Normal 35.0-45.0 [facility] Comment on above: Performed By: #### A IVANA RICHARDSON, EGFR1, BMP #### [facility] [address] [place] [address] WBC 4.1 thou/mm3 Low 4.8-10.8 [facility] Comment on above: Performed By: #### A IVANA RICHARDSON, EGFR1, BMP #### [facility] [address] [address] GFR, ESTIMATEDon 01-02-2024 GFR/1.73 sq M.predicted MDRD (S/P/Bld) [Vol rate/Area] mL/min/{1.73_m2} Normal >60 [facility] Comment on above: Result Comment: Pedi atric calculator link https://www.kidney.org/professionals/kdoqi/gfr_calculatorped Effective Apr 19, 2022 These results are not intended for use in patients <18 years of age. eGFR results are calculated without a race factor using the 2020 CKD-EPI equation. Careful clinical correlation is recommended, particularly when comparing to results calculated using previous equations. The CKD-EPI equation is less accurate in patients with extremes of muscle mass, extra-renal metabolism of creatinine, excessive creatine ingestion, or following therapy that affects renal tubular secretion. Performed By: #### A DEBRA, CBCWD, EGFR1, BMP #### [facility] [address] [address] AER/ANAEROBIC CULTUREon 12-16 AER/ANAEROBIC CULTURE MICROBIOLOGY REPOR T [facility], [address] [place] [address], [place], [address] PATIENT: FELICITY VILLAR LOCATION: [address] [place], [place] [id number] : 1965 AGE: 58 SEX: F ADM: 12/31/23 Att. Physician: KVNG PEREZ Order Id: [id number] Req. Physician: FCO COLLIER Source: fluid Site: lumbar wound drainage Collected: 01/01/24 15:02 Current Antibiotics: not stated Antibiotics comment: STATUS OF ORDERED AND REPORTED TESTS GRAM STAIN DIRECT FINAL 01/02/24 AEROBIC CULTURE FINAL 01/03/24 ANAEROBIC CULTURE FINAL 01/06/24 GRAM STAIN DIRECT FINAL 01/02/24 08:35 01/02/24 Rare segmented neutrophils observed. Rare epithelial cells observed. Rare gram positive cocci occurring singly and in pairs. AEROBIC CULTURE FINAL 01/03/24 09:38 Organism 01 Staphylococcus aureus moderate growth In the treatment of gram positive infections, GENTAMICIN should be CONSIDERED a SYNERGYSTIC agent ONLY. Ciprofloxacin and Levofloxacin, regardless of in vitro sensitivity, should not be used for staphylococcal infections other than uncomplicated lower UTIs. Moxifloxacin, regardless of in vitro sensitivity, should not be used for staphylococcal infections. ANAEROBIC CULTURE FINAL 01/06/24 10:22 01/03/24 No anaerobes isolated- preliminary 01/06/24 No anaerobes isolated Organism 01-staaur Antibiotic CYNTHIA Intrp *Adult dosage Pk bld level Pk urine lev. Gentamicin <=0.5 S IV 1.7mg/kg q 8 h 5-7 >=100 Oxacillin <=0.25 S IV 500mg 43 Clindamycin <=0.25 S PO 150mg 2.5 IV 600mg 14.7 . . Trimethoprim/Morel <=10 S [id number]/800mgSMX q 12h 1-2TMP/[id number] /97SM IV 160mgTMP/800mgSMX q 8 h9TMP/105 SMX Tetracycline <=1 S PO 250mg 2-4 100 S=Susceptible I=Intermediate R=Resistant Susceptibility is determined by comparing the CYNTHIA of organism to the achievable blood or urine level of drug. Level at the site of infection should be a minimum of 5-10 times the CYNTHIA. CYNTHIA and blood and urine levels=mcg/ml.*Standa rd dosages from [employer] Guide to Antimicrobial Therapy and assumes moderate infection in normal adult populations. For pts. with renal or liver disease consult PDR or pharmacist. Normal [facility] AER/ANAEROBIC CULTURE MICROBIOLOGY REPOR T [facility], [address] [place] [address], [place], [address] PATIENT: FELICITY VILLAR LOCATION: 7KN [id number] : 1965 AGE: 58 SEX: F ADM: 12/31/23 Att. Physician: KVNG PEREZ Order Id: [id number] Req. Physician: FCO COLLIER Source: tissue Site: lumbar tissue Collected: 01/01/24 15:00 Current Antibiotics: not stated Antibiotics comment: STATUS OF ORDERED AND REPORTED TESTS GRAM STAIN DIRECT FINAL 01/02/24 AEROBIC CULTURE FINAL 01/03/24 ANAEROBIC CULTURE FINAL 01/06/24 GRAM STAIN DIRECT FINAL 01/02/24 08:34 01/02/24 Few segmented neutrophils observed. Few epithelial cells observed. Few gram positive cocci occurring singly and in pairs. AEROBIC CULTURE FINAL 01/03/24 09:37 Organism 01 Staphylococcus aureus moderate growth In the treatment of gram positive infections, GENTAMICIN should be CONSIDERED a SYNERGYSTIC agent ONLY. Ciprofloxacin and Levofloxacin, regardless of in vitro sensitivity, should not be used for staphylococcal infections other than uncomplicated lower UTIs. Moxifloxacin, regardless of in vitro sensitivity, should not be used for staphylococcal infections. ANAEROBIC CULTURE FINAL 01/06/24 10:22 01/03/24 No anaerobes isolated- preliminary 01/06/24 No anaerobes isolated Organism 01-staaur Antibiotic CYNTHIA Intrp *Adult dosage Pk bld level Pk urine lev. Gentamicin <=0.5 S IV 1.7mg/kg q 8 h 5-7 >=100 Oxacillin 0.5 S IV 500mg 43 Clindamycin <=0.25 S PO 150mg 2.5 IV 600mg 14.7 . . Trimethoprim/Morel <=10 S [id number]/800mgSMX q 12h 1-2TMP/14-01T82-77JJV /97SM IV 160mgTMP/800mgSMX q 8 h9TMP/105 SMX Tetracycline <=1 S PO 250mg 2-4 100 S=Susceptible I=Intermediate R=Resistant Susceptibility is determined by comparing the CYNTHIA of organism to the achievable blood or urine level of drug. Level at the site of infection should be a minimum of 5-10 times the CYNTHIA. CYNTHIA and blood and urine levels=mcg/ml.*Standa rd dosages from [employer] Guide to Antimicrobial Therapy and assumes moderate infection in normal adult populations. For pts. with renal or liver disease consult PDR or pharmacist. Normal [facility] ANION GAPon 01-01-2024 Anion gap [Moles/Vol] 10.0 mmol/L Normal 8.0-16.0 [facility] Comment on above: Result Comment: ANIO N GAP = Sodium -(Chloride + CO2) Performed By: #### C BCWD, PT, APTT, BMPX, EGFR1, ANION #### [facility] [address] [place] [address] APTTon 01-01-2024 aPTT Coag (Bld) [Time] 29.9 s Normal 22.0-38.0 [facility] Comment on above: Result Comment: Ther apeutic Heparin Reference Range= 60-95 seconds (corresponds to 0.3 to 0.7 u/mL Anti-Xa factor activity) Performed By: #### C BCWD, PT, APTT, BMPX, EGFR1, ANION #### [facility] [address] [place] [address] BASIC METABOL PANELon 2023 Calcium [Mass/Vol] 8.2 mg/dL Low 8.5-10.5 [facility] Comment on above: Performed By: #### C BCWD, PT, APTT, BMPX, EGFR1, ANION #### [facility] [address] [place] [address] Chloride [Moles/Vol] 105 mmol/L Normal 98-111 [facility] Comment on above: Performed By: #### C BCWD, PT, APTT, BMPX, EGFR1, ANION #### [facility] [address] [place] [address] CO2 [Moles/Vol] 21 mmol/L Low 23-33 [facility] Comment on above: Performed By: #### C BCWD, PT, APTT, BMPX, EGFR1, ANION #### [facility] [address] [place] [address] Creatinine [Mass/Vol] 0.8 mg/dL Normal 0.4-1.2 [facility] Comment on above: Performed By: #### C BCWD, PT, APTT, BMPX, EGFR1, ANION #### [facility] [address] [place] [address] Glucose [Mass/Vol] 103 mg/dL Normal 70-108 [facility] Comment on above: Performed By: #### C BCWD, PT, APTT, BMPX, EGFR1, ANION #### [place] [address] POTASSIUM WITH REFLEX MG 3.8 meq/L Normal 3.5-5.2 [facility] Comment on above: Result Comment: Low level specimen hemolysis is present as indicated by the interference level index on the Marguerite analyzer. The reported K+ level may be falsely increased. If clinically warranted, recollection of the specimen is suggested. Performed By: #### C BCWD, PT, APTT, BMPX, EGFR1, ANION #### [place] [address] Sodium [Moles/Vol] 136 mmol/L Normal 135-145 [facility] Comment on above: Performed By: #### C BCWD, PT, APTT, BMPX, EGFR1, ANION #### [place] [address] Urea nitrogen [Mass/Vol] 16 mg/dL Normal 7-22 [facility] Comment on above: Performed By: #### C BCWD, PT, APTT, BMPX, EGFR1, ANION #### [place] [address] CBC WITH DIFFERENTIALon 12-16 ABS BASOPHILS 0.0 thou/mm3 Normal 0.0-0.1 [facility] Comment on above: Performed By: #### C BCWD, PT, APTT, BMPX, EGFR1, ANION #### [place] [address] ABS EOSINOPHILS 0.0 thou/mm3 Normal 0.0-0.4 [facility] Comment on above: Performed By: #### C BCWD, PT, APTT, BMPX, EGFR1, ANION #### [place] [address] ABS IMMATURE GRANS (IG) 0.02 thou/mm3 Normal 0.00-0.07 [facility] Comment on above: Performed By: #### C BCWD, PT, APTT, BMPX, EGFR1, ANION #### [place] [address] ABS LYMPHOCYTES 0.7 thou/mm3 Low 1.0-4.8 [facility] Comment on above: Performed By: #### C BCWD, PT, APTT, BMPX, EGFR1, ANION #### [address] [address] ABS MONOCYTES 0.5 thou/mm3 Normal 0.4-1.3 [facility] Comment on above: Performed By: #### C BCWD, PT, APTT, BMPX, EGFR1, ANION #### [address] [address] ABS NEUTROPHILS 3.0 thou/mm3 Normal 1.8-7.7 [facility] Comment on above: Performed By: #### C BCWD, PT, APTT, BMPX, EGFR1, ANION #### [address] [address] Basophils/100 WBC (Bld) 0.5 % Normal [facility] Comment on above: Performed By: #### C BCWD, PT, APTT, BMPX, EGFR1, ANION #### [address] [address] Eosinophils/100 WBC (Bld) 0.5 % Normal [facility] Comment on above: Performed By: #### C BCWD, PT, APTT, BMPX, EGFR1, ANION #### [address] [address] Erythrocyte distribution width (RBC) [Ratio] 12.8 % Normal 11.5-14.5 [facility] Comment on above: Performed By: #### C BCWD, PT, APTT, BMPX, EGFR1, ANION #### [address] [address] Hematocrit (Bld) [Volume fraction] 27.2 % Low 37.0-47.0 [facility] Comment on above: Performed By: #### C BCWD, PT, APTT, BMPX, EGFR1, ANION #### [address] [address] Hemoglobin (Bld) [Mass/Vol] 9.0 g/dL Low 12.0-16.0 [facility] Comment on above: Performed By: #### C BCWD, PT, APTT, BMPX, EGFR1, ANION #### [address] [address] IMMATURE GRANS (IG) 0.5 % Normal [facility] Comment on above: Performed By: #### C BCWD, PT, APTT, BMPX, EGFR1, ANION #### [address] [address] Lymphocytes/100 WBC (Bld) 15.9 % Normal [facility] Comment on above: Performed By: #### C BCWD, PT, APTT, BMPX, EGFR1, ANION #### [address] [address] MCH (RBC) [Entitic mass] 30.3 pg Normal 26.0-33.0 [facility] Comment on above: Performed By: #### C BCWD, PT, APTT, BMPX, EGFR1, ANION #### [address] [address] MCHC (RBC) [Mass/Vol] 33.1 g/dL Normal 32.2-35.5 [facility] Comment on above: Performed By: #### C BCWD, PT, APTT, BMPX, EGFR1, ANION #### [address] [address] MCV (RBC) [Entitic vol] 91.6 fL Normal 81.0-99.0 [facility] Comment on above: Performed By: #### C BCWD, PT, APTT, BMPX, EGFR1, ANION #### [address] [address] Monocytes/100 WBC (Bld) 11.8 % Normal [facility] Comment on above: Performed By: #### C BCWD, PT, APTT, BMPX, EGFR1, ANION #### [address] [address] Neutrophils/100 WBC (Bld) 70.8 % Normal [facility] Comment on above: Performed By: #### C BCWD, PT, APTT, BMPX, EGFR1, ANION #### [place] [address] NRBC 0 /100 wbc Normal [facility] Comment on above: Performed By: #### C BCWD, PT, APTT, BMPX, EGFR1, ANION #### [place] [address] PLATELET 173 thou/mm3 Normal 130-400 [facility] Comment on above: Performed By: #### C BCWD, PT, APTT, BMPX, EGFR1, ANION #### [place] [address] Platelet mean volume (Bld) [Entitic vol] 10.0 fL Normal 9.4-12.4 [facility] Comment on above: Performed By: #### C BCWD, PT, APTT, BMPX, EGFR1, ANION #### [place] [address] RBC 2.97 mill/mm3 Low 4.20-5.40 [facility] Comment on above: Performed By: #### C BCWD, PT, APTT, BMPX, EGFR1, ANION #### [place] [address] RDW-SD 42.8 fL Normal 35.0-45.0 [facility] Comment on above: Performed By: #### C BCWD, PT, APTT, BMPX, EGFR1, ANION #### [place] [address] WBC 4.3 thou/mm3 Low 4.8-10.8 [facility] Comment on above: Performed By: #### C BCWD, PT, APTT, BMPX, EGFR1, ANION #### [place] [address] GFR, ESTIMATEDon 01-01-2024 GFR/1.73 sq M.predicted MDRD (S/P/Bld) [Vol rate/Area] 86 mL/min/{1.73_m2} Normal >60 [facility] Comment on above: Result Comment: Mayjoann atric calculator link https://www.kidney.org/professionals/kdoqi/gfr_calculatorped Effective Apr 19, 2022 These results are not intended for use in patients <18 years of age. eGFR results are calculated without a race factor using the 2020 CKD-EPI equation. Careful clinical correlation is recommended, particularly when comparing to results calculated using previous equations. The CKD-EPI equation is less accurate in patients with extremes of muscle mass, extra-renal metabolism of creatinine, excessive creatine ingestion, or following therapy that affects renal tubular secretion. Performed By: #### C BCWD, PT, APTT, BMPX, EGFR1, ANION #### [facility] [address] [place] [address] PROTHOMBIN TIMEon 01-01-2024 INR Coag (Bld) [Relative time] 1.36 {INR} High 0.85-1.13 [facility] Comment on above: Result Comment: ---- -----INDICATION INR Reference Range DVT, PE, AF, AMI, tissue heart valve 2.0 to 3.0 Mechanical prosthetic valves 2.5 to 3.5 Performed By: #### C BCWD, PT, APTT, BMPX, EGFR1, ANION #### [facility] [address] [place] [address] ANION GAPon 12-31-2023 Anion gap [Moles/Vol] 12.0 mmol/L Normal 8.0-16.0 [facility] Comment on above: Result Comment: ANIO N GAP = Sodium -(Chloride + CO2) Performed By: #### A NION, CBCWD, EGFR1, BMP #### [facility] [address] [place] [address] BLOOD CULTUREon 12-31-2023 Bacteria identified Cx Nom (Bld) MICROBIOLOGY REPORT [facility], [address] [place] [address], [address] PATIENT: FELICITY VILLAR LOCATION: [facility] -A : 1965 AGE: 58 SEX: F ADM: 12/31/23 Att. Physician: KVNG PEREZ Order Id: [id number] Req. Physician: NANCY TROY Source: ieiwn-[id number] l <5.5oz./set volume Site: Peripheral Vein Collected: 12/31/23 21:01 Current Antibiotics: not stated Antibiotics comment: --------- Roman Avina E N T S - May discontinue per protocol if blood culture has already STATUS OF ORDERED AND REPORTED TESTS BLOOD CULTURE FINAL 01/05/24 BLOOD CULTURE FINAL 01/05/24 22:06 01/01/24 No growth 24 hours. 01/02/24 No growth 48 hours. 01/05/24 No growth at 5 days Normal [facility] Bacteria identified Cx Nom (Bld) MICROBIOLOGY REPORT [facility], [address] [place] [address], [address] PATIENT: FLEICITY VILLAR LOCATION: [address] [place], [place] [address] -A : 1965 AGE: 58 SEX: F ADM: 12/31/23 Att. Physician: KVNG PEREZ Order Id: [id number] Req. Physician: NANCY TROY Source: iqamh-[id number] l <5.5oz./set volume Site: Peripheral Vein Collected: 12/31/23 21:01 Current Antibiotics: not stated Antibiotics comment: --------- Roman Avina M E N T S - May discontinue per protocol if blood culture has already STATUS OF ORDERED AND REPORTED TESTS BLOOD CULTURE FINAL 01/05/24 BLOOD CULTURE FINAL 01/05/24 22:06 01/01/24 No growth 24 hours. 01/02/24 No growth 48 hours. 01/05/24 No growth at 5 days Normal [facility] COMP. METABOLIC PANELon 12-16 Albumin [Mass/Vol] 3.2 g/dL Low 3.5-5.1 [facility] Comment on above: Performed By: #### IVANA SALDIVAR, EGFR1, BMP #### [facility] [address] [place] [address] ALP [Catalytic activity/Vol] 86 U/L Normal 38-126 [facility] Comment on above: Performed By: #### IVANA SALDIVAR, EGFR1, BMP #### [facility] [address] [place] [address] ALT [Catalytic activity/Vol] 9 U/L Low 11-66 [facility] Comment on above: Performed By: #### IVANA SALDIVAR, EGFR1, BMP #### [facility] [address] [place] [address] AST [Catalytic activity/Vol] 18 U/L Normal 5-40 [facility] Comment on above: Performed By: #### IVANA SALDIVAR, EGFR1, BMP #### [facility] [address] [place] [address] Bilirubin [Mass/Vol] 0.6 mg/dL Normal 0.3-1.2 [facility] Comment on above: Performed By: #### IVANA SALDIVAR, EGFR1, BMP #### [facility] [address] [place] [address] Calcium [Mass/Vol] 8.5 mg/dL Normal 8.5-10.5 [facility] Comment on above: Performed By: #### A IVANA RICHARDSON, EGFR1, BMP #### [facility] [address] [place] [address] Chloride [Moles/Vol] 99 mmol/L Normal 98-111 [facility] Comment on above: Performed By: #### A IVANA RICHARDSON, EGFR1, BMP #### [facility] [address] [place] [address] CO2 [Moles/Vol] 24 mmol/L Normal 23-33 [facility] Comment on above: Performed By: #### A IVANA RICHARDSON, EGFR1, BMP #### [facility] [address] [place] [address] Creatinine [Mass/Vol] 1.0 mg/dL Normal 0.4-1.2 [facility] Comment on above: Performed By: #### A IVANA RICHARDSON, EGFR1, BMP #### [facility] [address] [place] [address] Glucose [Mass/Vol] 123 mg/dL High 70-108 [facility] Comment on above: Performed By: #### IVANA SALDIVAR, EGFR1, BMP #### [facility] [address] [place] [address] POTASSIUM WITH REFLEX MG 4.2 meq/L Normal 3.5-5.2 [facility] Comment on above: Performed By: #### IVANA SALDIVAR, EGFR1, BMP #### [facility] [address] [place] [address] Protein [Mass/Vol] 6.1 g/dL Normal 6.1-8.0 [facility] Comment on above: Performed By: #### A IVANA RICHARDSON, EGFR1, BMP #### [facility] [address] [place] [address] Sodium [Moles/Vol] 135 mmol/L Normal 135-145 [facility] Comment on above: Performed By: #### IVANA SALDIVAR, EGFR1, BMP #### [facility] [address] [place] [address] Urea nitrogen [Mass/Vol] 20 mg/dL Normal 7-22 [facility] Comment on above: Performed By: #### A DEBRA, CBCWD, EGFR1, BMP #### [facility] [address] [place] [address] EKG 12-LEADon 12-31-2023 EKG 12-LEAD 105 105 150 98 [phone] [address] N[address] and T wave abnormality Abnormal ECG No previous ECGs available Confirmed by AB CAR ([id number]) on 01/01/2024 7:31:35 AM [email or web address]?[id number] [email or web address]&Date=31-12-2023&Ti me=[email or web address]%[id number]%3a00& TestType=ECG&Site=3&O utputType=PDF&Ext=PDF Normal [facility] GFR, ESTIMATEDon 12-31-2023 GFR/1.73 sq M.predicted MDRD (S/P/Bld) [Vol rate/Area] 65 mL/min/{1.73_m2} Normal >60 [facility] Comment on above: Result Comment: Pedi atric calculator link https://www.kidney.org/professionals/kdoqi/gfr_calculatorped Effective Apr 19, 2022 These results are not intended for use in patients <18 years of age. eGFR results are calculated without a race factor using the 2020 CKD-EPI equation. Careful clinical correlation is recommended, particularly when comparing to results calculated using previous equations. The CKD-EPI equation is less accurate in patients with extremes of muscle mass, extra-renal metabolism of creatinine, excessive creatine ingestion, or following therapy that affects renal tubular secretion. Performed By: #### A DEBRA, CBCWD, EGFR1, BMP #### [facility] [address] [place] [address] LACTIC ACID, SEPSISon 2023 LACTIC ACID, SEPSIS 1.5 mmol/L Normal 0.5-1.9 [facility] Comment on above: Performed By: #### A DEBRA, CBCWD, EGFR1, BMP #### [facility] [address] [place] [address] LACTIC ACID, SEPSIS 1.5 mmol/L Normal 0.5-1.9 [facility] Comment on above: Performed By: #### A DEBRA, CBCWD, EGFR1, BMP #### [facility] [address] [place] [address] XR CHEST PORTABLEon 12-31-19 XR CHEST PORTABLE 1 view chest x-ray Comparison: None Findings: Lungs are clear without acute infiltrates. No pneumothorax. Heart size normal. No acute bony abnormalities. IMPRESSION: Impression: No acute processes This document has been electronically signed by: Narayan Solano MD on 12/31/2023 10:47 PM Interpreted by: Narayan Solano MD Signed by: Narayan Solano MD 12/31/23 Final result Normal [facility] Nonvisit Note - PTon 024 Nonvisit Note - PT Pt did not show up for her outpatient PT reeval appt for today; called and spoke to pt who totally forgot about today's appt. Pt prefers to just discharge her chart at this point rather than reschedule her appt as she is having surgery next week; will D/C at her request. Normal [facility] Nonvisit Note - PTon 024 Nonvisit Note - PT Cxl per patient. No message. Conf 11/14 Normal [facility] PT - Assessmentson PT - Assessments [id number]# 1.00TIFF Normal [facility] PT - Consentson 11-01-2023 PT - Consents [id number]# 1.00TIFF Normal [facility] PT - Home Exercise Programon 11-01-2023 PT - Home Exercise Program [id number]# 1.00TIFF Normal [facility] Consent for Treatmenton 10-16 Consent for Treatment [id number]#1 .00TIFF Normal [facility] PT - Orderson 10-28-2023 PT - Orders [id number]#1 .00TIFF Normal [facility] Complete Blood Count Auto Di ffon 09-27-2023 Basophils (Bld) [#/Vol] 0.1 10*3/uL Normal 0.0-0.2 [facility] Comment on above: Performed By: #### E SR, CBC, HEPATIC, CREAT #### [facility] [address] [place] [address] Basophils/100 WBC (Bld) 0.9 % Normal . [facility] Comment on above: Performed By: #### E SR, CBC, HEPATIC, CREAT #### [facility] [address] [place] [address] Eosinophils (Bld) [#/Vol] 0.1 10*3/uL Normal 0.0-0.45 [facility] Comment on above: Performed By: #### E SR, CBC, HEPATIC, CREAT #### [address] Eosinophils/100 WBC (Bld) 1.5 % Normal . [facility] Comment on above: Performed By: #### E SR, CBC, HEPATIC, CREAT #### [address] Erythrocyte distribution width (RBC) [Ratio] 13.6 % Normal 11.9-15.3 [facility] Comment on above: Performed By: #### E SR, CBC, HEPATIC, CREAT #### [address] Hematocrit (Bld) [Volume fraction] 37.3 % Normal 34.0-46.4 [facility] Comment on above: Performed By: #### E SR, CBC, HEPATIC, CREAT #### [address] Hemoglobin (Bld) [Mass/Vol] 12.5 g/dL Normal 11.8-15.4 [facility] Comment on above: Performed By: #### E SR, CBC, HEPATIC, CREAT #### [place] [address] [place] Lymphocytes (Bld) [#/Vol] 2.0 10*3/uL Normal 1.00-4.8 [facility] Comment on above: Performed By: #### E SR, CBC, HEPATIC, CREAT #### [facility] [address] Lymphocytes/100 WBC (Bld) 22.4 % Normal . [facility] Comment on above: Performed By: #### E SR, CBC, HEPATIC, CREAT #### [address] MCH (RBC) [Entitic mass] 30.9 pg Normal 24.7-34.3 [facility] Comment on above: Performed By: #### E SR, CBC, HEPATIC, CREAT #### [address] MCV (RBC) [Entitic vol] 92.4 fL Normal 80-100 [facility] Comment on above: Performed By: #### E SR, CBC, HEPATIC, CREAT #### [address] Mean Corpuscular HGB Conc 33.4 g/dL Normal 32.0-35.0 [facility] Comment on above: Performed By: #### E SR, CBC, HEPATIC, CREAT #### [address] Monocytes (Bld) [#/Vol] 0.7 10*3/uL Normal 0.0-0.8 [facility] Comment on above: Performed By: #### E SR, CBC, HEPATIC, CREAT #### [place] [address] [place] Monocytes/100 WBC (Bld) 7.3 % Normal . [facility] Comment on above: Performed By: #### E SR, CBC, HEPATIC, CREAT #### [address] Neutrophils (Bld) [#/Vol] 6.1 10*3/uL Normal 1.8-7.7 [facility] Comment on above: Performed By: #### E SR, CBC, HEPATIC, CREAT #### [address] Neutrophils/100 WBC (Bld) 67.9 % Normal . [facility] Comment on above: Performed By: #### E SR, CBC, HEPATIC, CREAT #### [facility] [address] [place] [address] NRBC% 0.1 /100{WBC} Normal 0-0.5 [facility] Comment on above: Performed By: #### E SR, CBC, HEPATIC, CREAT #### [address] Platelet mean volume (Bld) [Entitic vol] 8.8 fL Normal 6.3-10.7 [facility] Comment on above: Performed By: #### E SR, CBC, HEPATIC, CREAT #### [address] Platelets (Bld) [#/Vol] 212 10*3/uL Normal 150-450 [facility] Comment on above: Performed By: #### E SR, CBC, HEPATIC, CREAT #### [address] RBC (Bld) [#/Vol] 4.03 10*6/uL Normal 3.60-5.00 [facility] Comment on above: Performed By: #### E SR, CBC, HEPATIC, CREAT #### [address] WBC (Bld) [#/Vol] 8.9 10*3/uL Normal 3.8-11.6 [facility] Comment on above: Performed By: #### E SR, CBC, HEPATIC, CREAT #### [address] Creatinineon 09-27-2023 Creatinine [Mass/Vol] 0.88 mg/dL Normal 0.60-1.20 [facility] Comment on above: Performed By: #### E SR, CBC, HEPATIC, CREAT #### [facility] [address] GFR/1.73 sq M.predicted MDRD (S/P/Bld) [Vol rate/Area] mL/min/{1.73_m2} Normal [facility] Comment on above: Result Comment: PERF ORMED BY: [place] [address] PATHOLOGIST [employer] TAMERA DAO M.D. Performed By: #### E SR, CBC, HEPATIC, CREAT #### [address] Erythrocyte Sedimentation Ra moon 09-27-2023 ESR (Bld) [Velocity] 27 mm/h Normal 0-29 [facility] Comment on above: Result Comment: PERF ORMED BY: [place] [address] PATHOLOGIST [employer] TAMERA DAO M.D. Performed By: #### E SR, CBC, HEPATIC, CREAT #### [facility] [address] [place] [address] Hepatic Panelon 09-27-2023 Albumin [Mass/Vol] 4.1 g/dL Normal 3.5-5.7 [facility] Comment on above: Performed By: #### E SR, CBC, HEPATIC, CREAT #### [facility] [address] [place], [place] [id number] [facility] Albumin/Globulin [Mass ratio] 1.9 {ratio} Normal [facility] Comment on above: Performed By: #### E SR, CBC, HEPATIC, CREAT #### [facility] [address] [place], [place] [id number] [place] ALP [Catalytic activity/Vol] 107 U/L High 34-104 [facility] Comment on above: Performed By: #### E SR, CBC, HEPATIC, CREAT #### [facility] [address] [place] [id number] [place] ALT [Catalytic activity/Vol] 72 U/L High 7-52 [facility] Comment on above: Performed By: #### E SR, CBC, HEPATIC, CREAT #### [facility] [address] AST [Catalytic activity/Vol] 81 U/L High 13-39 [facility] Comment on above: Performed By: #### E SR, CBC, HEPATIC, CREAT #### [facility] [address] Bilirubin [Mass/Vol] 0.6 mg/dL Normal 0.3-1.0 [facility] Comment on above: Performed By: #### E SR, CBC, HEPATIC, CREAT #### [address] Bilirubin,Indirect 0.5 mg/dL Normal [facility] Comment on above: Performed By: #### E SR, CBC, HEPATIC, CREAT #### [facility] [address] [place] [address] Bilirubin.indirect [Mass/Vol] 0.10 mg/dL Normal 0.03-0.18 [facility] Comment on above: Performed By: #### E SR, CBC, HEPATIC, CREAT #### [address] Globulin (S) [Mass/Vol] 2.2 g/dL Normal [facility] Comment on above: Performed By: #### E SR, CBC, HEPATIC, CREAT #### [address] Protein [Mass/Vol] 6.3 g/dL Low 6.4-8.9 [facility] Comment on above: Performed By: #### E SR, CBC, HEPATIC, CREAT #### [address] COVID-19 / Flu A/B / RSV [...] or Cepheid Disclaimer revoked sooner. PERFORMED BY: [facility] [address] [facility] [place] [address] PATHOLOGIST [employer] TAMERA DAO M.D. [facility] Comment on above: Performed By: #### E SR, CBC, HEPATIC, CREAT #### [facility] [address] [place] [address] [facility] Cepheid COVID PCR Positiveon 06-01-2023 SARS-CoV-2 (COVID-19) RNA NANCY+probe Ql (Unsp spec) Positive Critically abnormal Negative [facility] Comment on above: Result Comment: This is a duplicate [employer] Xpert Xpress CoV-2/Flu/RSV Plus RNA by RT-PCR result to be used for statistical tracking purpose only. PERFORMED BY: [place] [address] PATHOLOGIST [employer] TAMERA DAO M.D. Performed By: #### E SR, CBC, HEPATIC, CREAT #### [address] XR chest 2V*on 06-01-2023 XR chest 2V* [facility] [place] [address] [place] [address] XRay Report Signed Patient: Felicity Villar MR#: [id number] [birth year] : 1965 Acct:[id number] Age/Sex: 57 / F ADM Date: 05/31/23 Loc: ER Room: Type: [facility] ER Attending Dr: Copies to: Stef [...] Sally Colón M.D.06/01/2023 7:21 AM Dictation Location: [place] [address] Transcribed By: VASILE 06/01/23720 Dictated By: Sally Colón MD 06/01/23719 Signed By: 06/01/23720 Normal [facility] COVID CepheidOrdered By: Kory Molina on 05-31-2023 SARS-CoV-2 (COVID-19) Ab IA Ql Positive Negative [facility] Comment on above: This is a duplicate [employer] Xpert Xpress CoV-2/Flu/RSV Plus RNA by RT-PCR result to be used for statistical tracking purpose only. SARS-CoV-2 (COVID-19) RNA NANCY+probe Ql (Unsp spec) [facility] Alanine aminotransferase [En zymatic activity/volume] in Serum or PlasmaOrdered By: Kyle Calderon on 04-28-2023 ALT [Catalytic activity/Vol] 58 U/L 7-52 [facility] Albumin [Mass/volume] in Ser um or Plasma by Bromocresol green (BCG) dye binding methoOrdered By: Kyle Calderon on 04-28-2023 Albumin BCG dye [Mass/Vol] 4.2 g/dL 3.5-5.7 [facility] Alkaline phosphatase [Enzyma tic activity/volume] in Serum or PlasmaOrdered By: Kyle Calderon on 04-28-2023 ALP [Catalytic activity/Vol] 102 U/L 34-104 [facility] Aspartate aminotransferase [ Enzymatic activity/volume] in Serum or PlasmaOrdered By: Kyle Calderon on 04-28-2023 AST [Catalytic activity/Vol] 53 U/L 13-39 [facility] Basophils Auto (Bld) [#/Vol] Ordered By: Kyle Calderon on 04-28-2023 Basophils (Bld) [#/Vol] 0.1 10*3/uL 0.0-0.2 [facility] Basophils/100 WBC Auto (Bld) Ordered By: Kyle Calderon on 04-28-2023 Basophils/100 WBC (Bld) 1.3 % . [facility] Bilirubin.direct [Mass/volum e] in Serum or PlasmaOrdered By: Kyle Calderon on 04-28-2023 Bilirubin.direct [Mass/Vol] 0.10 mg/dL 0.03-0.18 [facility] Bilirubin.total [Mass/volume ] in Serum or PlasmaOrdered By: Kyle Calderon on 04-28-2023 Bilirubin [Mass/Vol] 0.8 mg/dL 0.3-1.0 [facility] Complete Blood Count Auto Di ffon 04-28-2023 Basophils (Bld) [#/Vol] 0.1 10*3/uL Normal 0.0-0.2 [facility] Comment on above: Performed By: #### E SR, CBC, HEPATIC, CREAT #### [facility] [address] [place] [address] Basophils/100 WBC (Bld) 1.3 % Normal . [facility] Comment on above: Performed By: #### E SR, CBC, HEPATIC, CREAT #### [facility] [address] [place] [address] Eosinophils (Bld) [#/Vol] 0.2 10*3/uL Normal 0.0-0.45 [facility] Comment on above: Performed By: #### E SR, CBC, HEPATIC, CREAT #### [address] Eosinophils/100 WBC (Bld) 3.2 % Normal . [facility] Comment on above: Performed By: #### E SR, CBC, HEPATIC, CREAT #### [facility] [address] [place] [address] Erythrocyte distribution width (RBC) [Ratio] 13.5 % Normal 11.9-15.3 [facility] Comment on above: Performed By: #### E SR, CBC, HEPATIC, CREAT #### [address] Hematocrit (Bld) [Volume fraction] 36.5 % Normal 34.0-46.4 [facility] Comment on above: Performed By: #### E SR, CBC, HEPATIC, CREAT #### [address] Hemoglobin (Bld) [Mass/Vol] 12.3 g/dL Normal 11.8-15.4 [facility] Comment on above: Performed By: #### E SR, CBC, HEPATIC, CREAT #### [address] Lymphocytes (Bld) [#/Vol] 1.5 10*3/uL Normal 1.00-4.8 [facility] Comment on above: Performed By: #### E SR, CBC, HEPATIC, CREAT #### [address] Lymphocytes/100 WBC (Bld) 20.3 % Normal . [facility] Comment on above: Performed By: #### E SR, CBC, HEPATIC, CREAT #### [address] MCH (RBC) [Entitic mass] 31.2 pg Normal 24.7-34.3 [facility] Comment on above: Performed By: #### E SR, CBC, HEPATIC, CREAT #### [address] MCV (RBC) [Entitic vol] 92.2 fL Normal 80-100 [facility] Comment on above: Performed By: #### E SR, CBC, HEPATIC, CREAT #### [address] Mean Corpuscular HGB Conc 33.8 g/dL Normal 32.0-35.0 [facility] Comment on above: Performed By: #### E SR, CBC, HEPATIC, CREAT #### [address] Monocytes (Bld) [#/Vol] 0.6 10*3/uL Normal 0.0-0.8 [facility] Comment on above: Performed By: #### E SR, CBC, HEPATIC, CREAT #### [place] [address] [place] Monocytes/100 WBC (Bld) 9.0 % Normal . [facility] Comment on above: Performed By: #### E SR, CBC, HEPATIC, CREAT #### [place] [address] [place] Neutrophils (Bld) [#/Vol] 4.8 10*3/uL Normal 1.8-7.7 [facility] Comment on above: Performed By: #### E SR, CBC, HEPATIC, CREAT #### [place] [address] [place] Neutrophils/100 WBC (Bld) 66.2 % Normal . [facility] Comment on above: Performed By: #### E SR, CBC, HEPATIC, CREAT #### [facility] [address] [place] [address] NRBC% 0.1 /100{WBC} Normal 0-0.5 [facility] Comment on above: Performed By: #### E SR, CBC, HEPATIC, CREAT #### [address] Platelet mean volume (Bld) [Entitic vol] 8.7 fL Normal 6.3-10.7 [facility] Comment on above: Performed By: #### E SR, CBC, HEPATIC, CREAT #### [address] Platelets (Bld) [#/Vol] 202 10*3/uL Normal 150-450 [facility] Comment on above: Performed By: #### E SR, CBC, HEPATIC, CREAT #### [address] RBC (Bld) [#/Vol] 3.96 10*6/uL Normal 3.60-5.00 [facility] Comment on above: Performed By: #### E SR, CBC, HEPATIC, CREAT #### [address] WBC (Bld) [#/Vol] 7.2 10*3/uL Normal 3.8-11.6 [facility] Comment on above: Performed By: #### E SR, CBC, HEPATIC, CREAT #### [address] Creatinineon 04-28-2023 Creatinine [Mass/Vol] 0.70 mg/dL Normal 0.60-1.20 [facility] Comment on above: Performed By: #### E SR, CBC, HEPATIC, CREAT #### [address] GFR/1.73 sq M.predicted MDRD (S/P/Bld) [Vol rate/Area] mL/min/{1.73_m2} Normal [facility] [facility] Comment on above: Result Comment: PERF ORMED BY: [place] [address] PATHOLOGIST SAMPLE BOX MAKER TAMERA DAO M.D. Performed By: #### E SR, CBC, HEPATIC, CREAT #### [facility] [address] [place] [address] Creatinine [Mass/volume] in Serum or PlasmaOrdered By: Kyle Calderon on 04-28-2023 Creatinine [Mass/Vol] 0.70 mg/dL 0.60-1.20 [facility] Eosinophils Auto (Bld) [#/Vo l]Ordered By: Kyle Calderon on 04-28-2023 Eosinophils (Bld) [#/Vol] 0.2 10*3/uL 0.0-0.45 [facility] Eosinophils/100 WBC Auto (Bl d)Ordered By: Kyle Calderon on 04-28-2023 Eosinophils/100 WBC (Bld) 3.2 % . [facility] Erythrocyte Sedimentation Ra moon 04-28-2023 ESR (Bld) [Velocity] 24 mm/h Normal 0-29 [facility] Comment on above: Result Comment: PERF ORMED BY: [place] [address] PATHOLOGIST SAMPLE BOX MAKER TAMERA DAO M.D. Performed By: #### E SR, CBC, HEPATIC, CREAT #### [facility] [address] [place] [address] Erythrocyte distribution wid th Auto (RBC) [Ratio]Ordered By: Kyle Calderon on 04-28-2023 Erythrocyte distribution width (RBC) [Ratio] 13.5 % 11.9-15.3 [facility] Erythrocyte sedimentation ra te by Photometric methodOrdered By: Kyle Calderon on 04-28-2023 ESR Photometric method (Bld) [Velocity] 24 mm/hr 0-29 [facility] Globulin Calc (S) [Mass/Vol] Ordered By: Kyle Calderon on 04-28-2023 Globulin (S) [Mass/Vol] 1.9 g/dL [facility] Hematocrit Auto (Bld) [Volum e fraction]Ordered By: Kyle Calderon on 04-28-2023 Hematocrit (Bld) [Volume fraction] 36.5 % 34.0-46.4 [facility] Hemoglobin [Mass/volume] in BloodOrdered By: Kyle Calderon on 04-28-2023 Hemoglobin (Bld) [Mass/Vol] 12.3 g/dL 11.8-15.4 [facility] Hepatic Panelon 04-28-2023 Albumin [Mass/Vol] 4.2 g/dL Normal 3.5-5.7 [facility] Comment on above: Performed By: #### E SR, CBC, HEPATIC, CREAT #### [facility] [address] Albumin/Globulin [Mass ratio] 2.2 {ratio} Normal [facility] Comment on above: Performed By: #### E SR, CBC, HEPATIC, CREAT #### [facility] [address] [place] [address] ALP [Catalytic activity/Vol] 102 U/L Normal 34-104 [facility] Comment on above: Performed By: #### E SR, CBC, HEPATIC, CREAT #### [facility] [address] [place] [address] ALT [Catalytic activity/Vol] 58 U/L High 7-52 [facility] Comment on above: Performed By: #### E SR, CBC, HEPATIC, CREAT #### [facility] [address] [place] [id number] [facility] AST [Catalytic activity/Vol] 53 U/L High 13-39 [facility] Comment on above: Performed By: #### E SR, CBC, HEPATIC, CREAT #### [facility] [address] [place] [id number] [place] Bilirubin [Mass/Vol] 0.8 mg/dL Normal 0.3-1.0 [facility] Comment on above: Performed By: #### E SR, CBC, HEPATIC, CREAT #### [facility] [address] [place] [address] [place] Bilirubin,Indirect 0.7 mg/dL Normal [facility] Comment on above: Performed By: #### E SR, CBC, HEPATIC, CREAT #### [facility] [address] Bilirubin.indirect [Mass/Vol] 0.10 mg/dL Normal 0.03-0.18 [facility] Comment on above: Performed By: #### E SR, CBC, HEPATIC, CREAT #### [facility] [address] Globulin (S) [Mass/Vol] 1.9 g/dL Normal [facility] Comment on above: Performed By: #### E SR, CBC, HEPATIC, CREAT #### [facility] [address] Protein [Mass/Vol] 6.1 g/dL Low 6.4-8.9 [facility] Comment on above: Performed By: #### E SR, CBC, HEPATIC, CREAT #### [facility] [address] [place] [address] Leukocytes [#/volume] correc edd for nucleated erythrocytes in Blood by Automated counOrdered By: Kyle Calderon on 04-28-2023 WBC corrected for nucl RBC Auto (Bld) [#/Vol] 7.2 10*3/uL 3.8-11.6 [facility] Lymphocytes Auto (Bld) [#/Vo l]Ordered By: Kyle Calderon on 04-28-2023 Lymphocytes (Bld) [#/Vol] 1.5 10*3/uL 1.00-4.8 [facility] Lymphocytes/100 WBC Auto (Bl d)Ordered By: Kyle Calderon on 04-28-2023 Lymphocytes/100 WBC (Bld) 20.3 % . [facility] MCH Auto (RBC) [Entitic mass ]Ordered By: Kyle Calderon on 04-28-2023 MCH (RBC) [Entitic mass] 31.2 pg 24.7-34.3 [facility] MCHC Auto (RBC) [Mass/Vol]Or dered By: Kyle Calderon on 04-28-2023 MCHC (RBC) [Mass/Vol] 33.8 g/dL 32.0-35.0 [facility] MCV Auto (RBC) [Entitic vol] Ordered By: Kyle Calderon on 04-28-2023 MCV (RBC) [Entitic vol] 92.2 fL 80-100 [facility] Monocytes Auto (Bld) [#/Vol] Ordered By: Kyle Calderon on 04-28-2023 Monocytes (Bld) [#/Vol] 0.6 10*3/uL 0.0-0.8 [facility] Monocytes/100 WBC Auto (Bld) Ordered By: Kyle Calderon on 04-28-2023 Monocytes/100 WBC (Bld) 9.0 % . [facility] Neutrophils Auto (Bld) [#/Vo l]Ordered By: Kyle Calderon on 04-28-2023 Neutrophils (Bld) [#/Vol] 4.8 10*3/uL 1.8-7.7 [facility] Neutrophils/100 WBC Auto (Bl d)Ordered By: Kyle Calderon on 04-28-2023 Neutrophils/100 WBC (Bld) 66.2 % . [facility] No Panel InformationOrdered By: Kyle Calderon on 04-28-2023 Estimated GFR (CKD-EPI) > 60.0 mL/Min [facility] Creatinine Clearance (Chem N/A [facility] Nucleated erythrocytes [Pres ence] in Blood by Automated countOrdered By: Kyle Calderon on 04-28-2023 Nucleated RBC Auto Ql (Bld) 0.1 /100{WBC} 0-0.5 [facility] Platelet mean volume Auto (B ld) [Entitic vol]Ordered By: Kyle Calderon on 04-28-2023 Platelet mean volume (Bld) [Entitic vol] 8.7 fL 6.3-10.7 [facility] Platelets Auto (Bld) [#/Vol] Ordered By: Kyle Calderon on 04-28-2023 Platelets (Bld) [#/Vol] 202 10*3/uL 150-450 [facility] Protein [Mass/volume] in Ser um or PlasmaOrdered By: Kyle Calderon on 04-28-2023 Protein [Mass/Vol] 6.1 g/dL 6.4-8.9 [facility] RBC Auto (Bld) [#/Vol]Ordere d By: Kyle Calderon on 04-28-2023 RBC (Bld) [#/Vol] 3.96 10*6/uL 3.60-5.00 [facility] Serum or plasma albumin/glob ulin mass ratioOrdered By: Kyle Calderon on 04-28-2023 Albumin/Globulin [Mass ratio] 2.2 {ratio} [facility] Serum or plasma non-glucuron idated bilirubin measurement (mass/volume)Ordered By: Kyle Calderon on 04-28-2023 Bilirubin.indirect [Mass/Vol] 0.7 mg/dL [facility] WBC Auto (Bld) [#/Vol]Ordere d By: Kyle Calderon on 04-28-2023 WBC (Bld) [#/Vol] 7.2 10*3/uL 3.8-11.6 [facility] Consent for Treatmenton 02-15 Consent for Treatment [id number]:127 Normal [facility] Discharge Instructionson Discharge Instructions [id number]:127 Normal [facility] ED Clinical Summaryon 2022 ED Clinical Summary [address] [address] ED Clinical Summary Person Information Name: FELICITY VILLAR [facility] Age: 57 Years : 1965 Sex: Female Language: Danish PCP: Jose Antonio Quinn MD Marital Status: Visit Id: Visit Reason: [...] 02/24/2023 13:18:12 02/24/2023 13:18:12 02/24/2023 13:18:12 ADDRESS: [address] [place] [id number] PHYS DOC NOTES: MEDICAL INFORMATION: Prescriptions Given: New Medications [facility], [address] [place], [place] [id number], [phone] cephalexin (Keflex 500 mg Cap) 1 Capsules [...] Follow up: With: Address: When: Jose Antonio Quinn [address] [place] [address], [address] [place] [phone] Business (1) In 3 days 02/27/2023 DIAGNOSIS: Abscess; Cellulitis Normal [facility] ED Note-Physicianon 02-25-20 ED Note-Physician Basic Information [...] days, # 30 cap(s), Refills(s) 0, [facility], 155, cm, 02/24/23 12:00:00 EDT, Height/Length Dosing, 108.2, kg, 02/24/23 12:00:00 EDT, Weight Dosing doxycycline, 100 mg = 1 tab(s), Oral, BID, X 10 day(s), # 20 tab(s), Refills(s) 0, [facility], 155, cm, 02/24/23 12:00:00 EDT, [...] Follow-up With When Contact Information Jose Antonio Quinn In 3 days 02/27/2023 EDT [address] [phone] Business (1) Additional Instructions: Patient Education Skin Abscess Cellulitis, Adult Attestation Patient seen and evaluated by the physician diet assistant. Attending physician was present in the emergency department and supervised care. This visit was performed by both the physician and an APC. I performed all aspects of the MDM as documented. This report was transcribed using voice recognition software. Every effort was made to ensure accuracy, however, inadvertently computerized sample carrier mistakes may be present. Appropriate healthcare PPE [...] Keflex 5 (more content not included)... Normal [facility] Comment on above: Result Comment: Elec tronically [...] these instructions at home: Medicines ? Take [id number] and prescription medicines only as told by [...] and water are not available, use hand commercial correspondent. ? Check your abscess every day for [...] care pro (more content not included)... Normal [facility] ED Patient Summaryon 023 ED Patient Summary [address] [address] Patient Discharge Instructions Person Information Name: FELICITY VILLAR Age: 57 Years Arrival Date: 02/24/2023 11:52:40 Discharge Diagnosis: Abscess; Cellulitis Primary Care Physician: Jose Antonio Quinn MD Provider Information Primary Provider: Briana Winters M.D. Advanced Tunnel Man:Rodrick Mobley PA-C The exam and treatment you received in the Emergency Department were for an urgent problem and are not intended as complete care. It is important that you follow up with a doctor, nurse practitioner, or physician?s diet assistant for ongoing care. If your symptoms become worse or you do not improve as expected and you are unable to reach your usual health care provider, you should return to the Emergency Department. We are available 24 hours a day. ALANFELICITY ULLOA has been given the following list of patient education materials, prescriptions and follow-up instructions: Follow-up Instructions: With: Address: When: Jose Antonio Quinn [address] [place] [address], [place] [address] Business (1) In 3 days 02/27/2023 In the event that this physician does not participate in your insurance network, please consult with your insurance company to find a nearby participating provider. Patient Education Materials: Skin Abscess; Cellulitis, Adult A MESSAGE TO ALL PATIENTS REGARDING OPIOIDS PRESCRIPTION OPIOIDS: WHAT YOU NEED TO KNOW Prescription opioids can be used to help relieve zrdcceic-jz-klonzz pain and are often prescribed following a [...] be struggling with addiction, tell your health palliative care coordinator and ask for guidance or call [facility] [employer] Helpline at [phone]. (more content not included)... Normal [facility] Alanine aminotransferase [En zymatic activity/volume] in Serum or PlasmaOrdered By: Kyle Calderon on 01-05-2023 ALT [Catalytic activity/Vol] 41 U/L 7-52 [facility] Albumin [Mass/volume] in Ser um or Plasma by Bromocresol green (BCG) dye binding methoOrdered By: Kyle Calderon on 01-05-2023 Albumin BCG dye [Mass/Vol] 4.4 g/dL 3.5-5.7 [facility] Alkaline phosphatase [Enzyma tic activity/volume] in Serum or PlasmaOrdered By: Kyle Calderon on 01-05-2023 ALP [Catalytic activity/Vol] 93 U/L 34-104 [facility] Anisocytosis LM Ql (Bld)Orde red By: Kyle Calderon on 01-05-2023 Anisocytosis Ql (Bld) Slight [facility] Aspartate aminotransferase [ Enzymatic activity/volume] in Serum or PlasmaOrdered By: Kyle Calderon on 01-05-2023 AST [Catalytic activity/Vol] 19 U/L 13-39 [facility] Band form neutrophils/100 WB C Manual cnt (Bld)Ordered By: Kyle Calderon on 01-05-2023 Band form neutrophils/100 WBC (Bld) 1 % 0-5 [facility] Basophils Auto (Bld) [#/Vol] Ordered By: Kyle Calderon on 01-05-2023 Basophils (Bld) [#/Vol] N/A [facility] Basophils/100 WBC Auto (Bld) Ordered By: Kyle Calderon on 01-05-2023 Basophils/100 WBC (Bld) N/A [facility] Basophils/100 WBC Manual cnt (Bld)Ordered By: Kyle Calderon on 01-05-2023 Basophils/100 WBC (Bld) 0 % 0-2 [facility] Bilirubin.direct [Mass/volum e] in Serum or PlasmaOrdered By: Kyle Calderon on 01-05-2023 Bilirubin.direct [Mass/Vol] 0.10 mg/dL 0.03-0.18 [facility] Bilirubin.total [Mass/volume ] in Serum or PlasmaOrdered By: Kyle Calderon on 01-05-2023 Bilirubin [Mass/Vol] 0.6 mg/dL 0.3-1.0 [facility] Creatinineon 01-05-2023 Creatinine [Mass/Vol] 0.85 mg/dL Normal 0.60-1.20 [facility] Comment on above: Performed By: #### E SR, CBC, HEPATIC, CREAT #### [facility] [address] GFR/1.73 sq M.predicted MDRD (S/P/Bld) [Vol rate/Area] mL/min/{1.73_m2} Normal [facility] Comment on above: Result Comment: PERF ORMED BY: [facility] [address] [place] [address] PATHOLOGIST SAMPLE BOX MAKER TAMERA DAO M.D. Performed By: #### E SR, CBC, HEPATIC, CREAT #### [facility] [address] Creatinine [Mass/volume] in Serum or PlasmaOrdered By: Kyle Calderon on 01-05-2023 Creatinine [Mass/Vol] 0.85 mg/dL 0.60-1.20 [facility] Diff and CBCon 01-05-2023 Anisocytosis Ql (Bld) Slight Normal [facility] Comment on above: Performed By: #### E SR, CBC, HEPATIC, CREAT #### [facility] [address] [place] [address] [place] Band form neutrophils/100 WBC (Bld) 1 % Normal 0-5 [facility] Comment on above: Performed By: #### E SR, CBC, HEPATIC, CREAT #### [facility] [address] [place] [address] [place] Basophils/100 WBC (Bld) 0 % Normal 0-2 [facility] Comment on above: Performed By: #### E SR, CBC, HEPATIC, CREAT #### [facility] [address] [place] [address] [place] Eosinophils/100 WBC (Bld) 4 % High 1-3 [facility] Comment on above: Performed By: #### E SR, CBC, HEPATIC, CREAT #### [facility] [address] [place] [address] Erythrocyte distribution width (RBC) [Ratio] 15.0 % Normal 11.9-15.3 [facility] Comment on above: Performed By: #### E SR, CBC, HEPATIC, CREAT #### [facility] [address] [place] [address] Hematocrit (Bld) [Volume fraction] 35.4 % Normal 34.0-46.4 [facility] Comment on above: Performed By: #### E SR, CBC, HEPATIC, CREAT #### [facility] [address] [place] [address] [place] Hemoglobin (Bld) [Mass/Vol] 12.1 g/dL Normal 11.8-15.4 [facility] Comment on above: Performed By: #### E SR, CBC, HEPATIC, CREAT #### [facility] [address] [place] [address] [place] Lymphocytes/100 WBC (Bld) 13 % Low 18-42 [facility] Comment on above: Performed By: #### E SR, CBC, HEPATIC, CREAT #### [facility] [address] [place] [address] MCH (RBC) [Entitic mass] 31.7 pg Normal 24.7-34.3 [facility] Comment on above: Performed By: #### E SR, CBC, HEPATIC, CREAT #### [facility] [address] [place] [address] MCV (RBC) [Entitic vol] 92.6 fL Normal 80-100 [facility] Comment on above: Performed By: #### E SR, CBC, HEPATIC, CREAT #### [address] Mean Corpuscular HGB Conc 34.2 g/dL Normal 32.0-35.0 [facility] Comment on above: Performed By: #### E SR, CBC, HEPATIC, CREAT #### [address] Metamyelocytes 1 % High 0-0 [facility] Comment on above: Performed By: #### E SR, CBC, HEPATIC, CREAT #### [address] Microcytosis Slight Normal [facility] Comment on above: Performed By: #### E SR, CBC, HEPATIC, CREAT #### [address] Monocytes/100 WBC (Bld) 6 % Normal 2-11 [facility] Comment on above: Performed By: #### E SR, CBC, HEPATIC, CREAT #### [address] Myelocytes 1 % High 0-0 [facility] Comment on above: Performed By: #### E SR, CBC, HEPATIC, CREAT #### [address] Platelet Estimate Normal Normal Normal [facility] Comment on above: Performed By: #### E SR, CBC, HEPATIC, CREAT #### [facility] [address] [place] [address] Platelet mean volume (Bld) [Entitic vol] 8.3 fL Normal 6.3-10.7 [facility] Comment on above: Performed By: #### E SR, CBC, HEPATIC, CREAT #### [facility] [address] Platelet Morphology Normal Normal Normal [facility] Comment on above: Performed By: #### E SR, CBC, HEPATIC, CREAT #### [facility] [address] Platelets (Bld) [#/Vol] 204 10*3/uL Normal 150-450 [facility] Comment on above: Performed By: #### E SR, CBC, HEPATIC, CREAT #### [address] Polychromasia Slight Normal [facility] Comment on above: Performed By: #### E SR, CBC, HEPATIC, CREAT #### [facility] [address] [place] [address] RBC (Bld) [#/Vol] 3.82 10*6/uL Normal 3.60-5.00 [facility] Comment on above: Performed By: #### E SR, CBC, HEPATIC, CREAT #### [facility] [address] [place] [address] Segmented neutrophils/100 WBC (Bld) 74 % High 50-70 [facility] Comment on above: Performed By: #### E SR, CBC, HEPATIC, CREAT #### [facility] [address] [place] [address] WBC (Bld) [#/Vol] 10.8 10*3/uL Normal 3.8-11.6 [facility] Comment on above: Performed By: #### E SR, CBC, HEPATIC, CREAT #### [place] [address] [place] Eosinophils Auto (Bld) [#/Vo l]Ordered By: Kyle Calderon on 01-05-2023 Eosinophils (Bld) [#/Vol] N/A [facility] Eosinophils/100 WBC Auto (Bl d)Ordered By: Kyle Calderon on 01-05-2023 Eosinophils/100 WBC (Bld) N/A [facility] Eosinophils/100 WBC Manual c nt (Bld)Ordered By: Kyle Calderon on 01-05-2023 Eosinophils/100 WBC (Bld) 4 % 1-3 [facility] Erythrocyte Sedimentation Ra moon 01-05-2023 ESR (Bld) [Velocity] 17 mm/h Normal 0-29 [facility] Comment on above: Result Comment: PERF ORMED BY: [place] [address] PATHOLOGIST SAMPLE BOX MAKER TAMERA DAO M.D. Performed By: #### E SR, CBC, HEPATIC, CREAT #### [facility] [address] Erythrocyte distribution wid th Auto (RBC) [Ratio]Ordered By: Kyle Calderon on 01-05-2023 Erythrocyte distribution width (RBC) [Ratio] 15.0 % 11.9-15.3 [facility] Erythrocyte sedimentation ra te by Photometric methodOrdered By: Kyle Calderon on 01-05-2023 ESR Photometric method (Bld) [Velocity] 17 mm/hr 0-29 [facility] Globulin Calc (S) [Mass/Vol] Ordered By: Kyle Calderon on 01-05-2023 Globulin (S) [Mass/Vol] 2.2 g/dL [facility] Hematocrit Auto (Bld) [Volum e fraction]Ordered By: Kyle Calderon on 01-05-2023 Hematocrit (Bld) [Volume fraction] 35.4 % 34.0-46.4 [facility] Hemoglobin [Mass/volume] in BloodOrdered By: Kyle Calderon on 01-05-2023 Hemoglobin (Bld) [Mass/Vol] 12.1 g/dL 11.8-15.4 [facility] Hepatic Panelon 01-05-2023 Albumin [Mass/Vol] 4.4 g/dL Normal 3.5-5.7 [facility] Comment on above: Performed By: #### C REAT, HEPATIC, DIFF CBC, ESR #### [facility] [address] Albumin/Globulin [Mass ratio] 2.0 {ratio} Normal [facility] Comment on above: Performed By: #### C REAT, HEPATIC, DIFF CBC, ESR #### [facility] [address] [place] [id number] [place] ALP [Catalytic activity/Vol] 93 U/L Normal 34-104 [facility] Comment on above: Performed By: #### C REAT, HEPATIC, DIFF CBC, ESR #### [facility] [address] [place] [address] [place] ALT [Catalytic activity/Vol] 41 U/L Normal 7-52 [facility] Comment on above: Performed By: #### C REAT, HEPATIC, DIFF CBC, ESR #### [facility] [address] [place] [address] [place] AST [Catalytic activity/Vol] 19 U/L Normal 13-39 [facility] Comment on above: Performed By: #### C REAT, HEPATIC, DIFF CBC, ESR #### [facility] [address] Bilirubin [Mass/Vol] 0.6 mg/dL Normal 0.3-1.0 [facility] Comment on above: Performed By: #### C REAT, HEPATIC, DIFF CBC, ESR #### [facility] [address] [place] [address] [place] Bilirubin,Indirect 0.5 mg/dL Normal [facility] Comment on above: Performed By: #### C REAT, HEPATIC, DIFF CBC, ESR #### [facility] [address] [place] [address] [place] Bilirubin.indirect [Mass/Vol] 0.10 mg/dL Normal 0.03-0.18 [facility] Comment on above: Performed By: #### C REAT, HEPATIC, DIFF CBC, ESR #### [facility] [address] [place] [address] [place] Globulin (S) [Mass/Vol] 2.2 g/dL Normal [facility] Comment on above: Performed By: #### C REAT, HEPATIC, DIFF CBC, ESR #### [facility] [address] [place] [id number] [place] Protein [Mass/Vol] 6.6 g/dL Normal 6.4-8.9 [facility] Comment on above: Performed By: #### C REAT, HEPATIC, DIFF CBC, ESR #### [facility] [address] Leukocytes [#/volume] correc edd for nucleated erythrocytes in Blood by Automated counOrdered By: Kyle Calderon on 01-05-2023 WBC corrected for nucl RBC Auto (Bld) [#/Vol] 10.8 10*3/uL 3.8-11.6 [facility] Lymphocytes Auto (Bld) [#/Vo l]Ordered By: Kyle Calderon on 01-05-2023 Lymphocytes (Bld) [#/Vol] N/A [facility] Lymphocytes/100 WBC Auto (Bl d)Ordered By: Kyle Calderon on 01-05-2023 Lymphocytes/100 WBC (Bld) N/A [facility] Lymphocytes/100 WBC Manual c nt (Bld)Ordered By: Kyle Calderon on 01-05-2023 Lymphocytes/100 WBC (Bld) 13 % 18-42 [facility] MCH Auto (RBC) [Entitic mass ]Ordered By: Kyle Calderon on 01-05-2023 MCH (RBC) [Entitic mass] 31.7 pg 24.7-34.3 [facility] MCHC Auto (RBC) [Mass/Vol]Or dered By: Kyle Calderon on 01-05-2023 MCHC (RBC) [Mass/Vol] 34.2 g/dL 32.0-35.0 [facility] MCV Auto (RBC) [Entitic vol] Ordered By: Kyle Calderon on 01-05-2023 MCV (RBC) [Entitic vol] 92.6 fL 80-100 [facility] Metamyelocytes/100 WBC Manua l cnt (Bld)Ordered By: Kyle Calderon on 01-05-2023 Metamyelocytes/100 WBC (Bld) 1 % 0-0 [facility] Microcytes LM Ql (Bld)Ordere d By: Kyle Calderon on 01-05-2023 Microcytes Ql (Bld) Slight [facility] Monocytes Auto (Bld) [#/Vol] Ordered By: Kyle Calderon on 01-05-2023 Monocytes (Bld) [#/Vol] N/A [facility] Monocytes/100 WBC Auto (Bld) Ordered By: Kyle Calderon on 01-05-2023 Monocytes/100 WBC (Bld) N/A [facility] Monocytes/100 WBC Manual cnt (Bld)Ordered By: Kyle Calderon on 01-05-2023 Monocytes/100 WBC (Bld) 6 % 2-11 [facility] Myelocytes/100 WBC Manual cn t (Bld)Ordered By: Kyle Calderon on 01-05-2023 Myelocytes/100 WBC (Bld) 1 % 0-0 [facility] Neutrophils Auto (Bld) [#/Vo l]Ordered By: Kyle Calderon on 01-05-2023 Neutrophils (Bld) [#/Vol] N/A [facility] Neutrophils/100 WBC Auto (Bl d)Ordered By: Kyle Calderon on 01-05-2023 Neutrophils/100 WBC (Bld) N/A [facility] No Panel InformationOrdered By: Kyle Calderon on 01-05-2023 Estimated GFR (CKD-EPI) > 60.0 mL/Min [facility] Creatinine Clearance (Chem N/A [facility] Nucleated erythrocytes [Pres ence] in Blood by Automated countOrdered By: Kyle Calderon on 01-05-2023 Nucleated RBC Auto Ql (Bld) N/A [facility] Platelet adequacy [Presence] in Blood by Light microscopyOrdered By: Kyle Calderon on 01-05-2023 Platelets LM Ql (Bld) Normal Normal [facility] Platelet mean volume Auto (B ld) [Entitic vol]Ordered By: Kyle Calderon on 01-05-2023 Platelet mean volume (Bld) [Entitic vol] 8.3 fL 6.3-10.7 [facility] Platelet morphology finding [Identifier] in BloodOrdered By: Kyle Calderon on 01-05-2023 Platelet morphology finding Nom (Bld) Normal Normal [facility] Platelets Auto (Bld) [#/Vol] Ordered By: Kyle Calderon on 01-05-2023 Platelets (Bld) [#/Vol] 204 10*3/uL 150-450 [facility] Polychromasia [Presence] in Blood by Light microscopyOrdered By: Kyle Calderon on 01-05-2023 Polychromasia LM Ql (Bld) Slight [facility] Protein [Mass/volume] in Ser um or PlasmaOrdered By: Kyle Calderon on 01-05-2023 Protein [Mass/Vol] 6.6 g/dL 6.4-8.9 [facility] RBC Auto (Bld) [#/Vol]Ordere d By: Kyle Calderon on 01-05-2023 RBC (Bld) [#/Vol] 3.82 10*6/uL 3.60-5.00 [facility] RBC morphologyOrdered By: Jazmin Calderon on 01-05-2023 RBC morphology finding Nom (Bld) N/A [facility] Segmented neutrophils/100 WB C Manual cnt (Bld)Ordered By: Kyle Calderon on 01-05-2023 Segmented neutrophils/100 WBC (Bld) 74 % 50-70 [facility] Serum or plasma albumin/glob ulin mass ratioOrdered By: Kyle Calderon on 01-05-2023 Albumin/Globulin [Mass ratio] 2.0 {ratio} [facility] Serum or plasma non-glucuron idated bilirubin measurement (mass/volume)Ordered By: Kyle Calderon on 01-05-2023 Bilirubin.indirect [Mass/Vol] 0.5 mg/dL [facility] WBC Auto (Bld) [#/Vol]Ordere d By: Kyle Calderon on 01-05-2023 WBC (Bld) [#/Vol] 10.8 10*3/uL 3.8-11.6 [facility] CT LSPINE WO CONon 3 CT [...] by: UNA ELMORE Date: 2022-11-13 09:34 Normal [facility] CT PELVIS WO CONon 3 CT [...] by: UNA ELMORE Date: 2022-11-13 09:29 Normal [facility] Alanine aminotransferase [En zymatic activity/volume] in Serum or PlasmaOrdered By: Kyle Calderon on 11-03-2022 ALT [Catalytic activity/Vol] 41 U/L 7-52 [facility] Albumin [Mass/volume] in Ser um or Plasma by Bromocresol green (BCG) dye binding methoOrdered By: Kyle Calderon on 11-03-2022 Albumin BCG dye [Mass/Vol] 4.0 g/dL 3.5-5.7 [facility] Alkaline phosphatase [Enzyma tic activity/volume] in Serum or PlasmaOrdered By: Kyle Calderon on 11-03-2022 ALP [Catalytic activity/Vol] 95 U/L 34-104 [facility] Aspartate aminotransferase [ Enzymatic activity/volume] in Serum or PlasmaOrdered By: Kyle Calderon on 11-03-2022 AST [Catalytic activity/Vol] 17 U/L 13-39 [facility] Basophils Auto (Bld) [#/Vol] Ordered By: Kyle Calderon on 11-03-2022 Basophils (Bld) [#/Vol] 0.1 10*3/uL 0.0-0.2 [facility] Basophils/100 WBC Auto (Bld) Ordered By: Kyle Calderon on 11-03-2022 Basophils/100 WBC (Bld) 0.9 % . [facility] Bilirubin.direct [Mass/volum e] in Serum or PlasmaOrdered By: Kyle Calderon on 11-03-2022 Bilirubin.direct [Mass/Vol] 0.10 mg/dL 0.03-0.18 [facility] Bilirubin.total [Mass/volume ] in Serum or PlasmaOrdered By: Kyle Calderon on 11-03-2022 Bilirubin [Mass/Vol] 0.7 mg/dL 0.3-1.0 [facility] Complete Blood Count Auto Di ffon 11-03-2022 Basophils (Bld) [#/Vol] 0.1 10*3/uL Normal 0.0-0.2 [facility] Comment on above: Performed By: #### H EPATIC, CREAT, CBC, ESR #### [address] Basophils/100 WBC (Bld) 0.9 % Normal . [facility] Comment on above: Performed By: #### H EPATIC, CREAT, CBC, ESR #### [address] Eosinophils (Bld) [#/Vol] 0.2 10*3/uL Normal 0.0-0.45 [facility] Comment on above: Performed By: #### H EPATIC, CREAT, CBC, ESR #### [address] Eosinophils/100 WBC (Bld) 1.4 % Normal . [facility] Comment on above: Performed By: #### H EPATIC, CREAT, CBC, ESR #### [address] Erythrocyte distribution width (RBC) [Ratio] 14.6 % Normal 11.9-15.3 [facility] Comment on above: Performed By: #### H EPATIC, CREAT, CBC, ESR #### [address] Hematocrit (Bld) [Volume fraction] 37.2 % Normal 34.0-46.4 [facility] Comment on above: Performed By: #### H EPATIC, CREAT, CBC, ESR #### [address] Hemoglobin (Bld) [Mass/Vol] 12.4 g/dL Normal 11.8-15.4 [facility] Comment on above: Performed By: #### H EPATIC, CREAT, CBC, ESR #### [address] Lymphocytes (Bld) [#/Vol] 1.5 10*3/uL Normal 1.00-4.8 [facility] Comment on above: Performed By: #### H EPATIC, CREAT, CBC, ESR #### [address] Lymphocytes/100 WBC (Bld) 12.4 % Normal . [facility] Comment on above: Performed By: #### H EPATIC, CREAT, CBC, ESR #### [address] [place] [address] [place] MCH (RBC) [Entitic mass] 31.0 pg Normal 24.7-34.3 [facility] Comment on above: Performed By: #### H EPATIC, CREAT, CBC, ESR #### [address] MCV (RBC) [Entitic vol] 93.2 fL Normal 80-100 [facility] Comment on above: Performed By: #### H EPATIC, CREAT, CBC, ESR #### [address] Mean Corpuscular HGB Conc 33.3 g/dL Normal 32.0-35.0 [facility] Comment on above: Performed By: #### H EPATIC, CREAT, CBC, ESR #### [address] Monocytes (Bld) [#/Vol] 0.9 10*3/uL High 0.0-0.8 [facility] Comment on above: Performed By: #### H EPATIC, CREAT, CBC, ESR #### [address] Monocytes/100 WBC (Bld) 7.2 % Normal . [facility] Comment on above: Performed By: #### H EPATIC, CREAT, CBC, ESR #### [address] Neutrophils (Bld) [#/Vol] 9.4 10*3/uL High 1.8-7.7 [facility] Comment on above: Performed By: #### H EPATIC, CREAT, CBC, ESR #### [address] Neutrophils/100 WBC (Bld) 78.1 % Normal . [facility] Comment on above: Performed By: #### H EPATIC, CREAT, CBC, ESR #### [address] NRBC% 0.0 /100{WBC} Normal 0-0.5 [facility] Comment on above: Performed By: #### H EPATIC, CREAT, CBC, ESR #### [address] Platelet mean volume (Bld) [Entitic vol] 8.4 fL Normal 6.3-10.7 [facility] Comment on above: Performed By: #### H EPATIC, CREAT, CBC, ESR #### [address] Platelets (Bld) [#/Vol] 220 10*3/uL Normal 150-450 [facility] Comment on above: Performed By: #### H EPATIC, CREAT, CBC, ESR #### [address] RBC (Bld) [#/Vol] 3.99 10*6/uL Normal 3.60-5.00 [facility] Comment on above: Performed By: #### H EPATIC, CREAT, CBC, ESR #### [address] WBC (Bld) [#/Vol] 12.0 10*3/uL High 3.8-11.6 [facility] Comment on above: Performed By: #### H EPATIC, CREAT, CBC, ESR #### [address] Creatinineon 11-03-2022 Creatinine [Mass/Vol] 0.80 mg/dL Normal 0.60-1.20 [facility] Comment on above: Performed By: #### H EPATIC, CREAT, CBC, ESR #### [address] GFR/1.73 sq M.predicted MDRD (S/P/Bld) [Vol rate/Area] mL/min/{1.73_m2} Normal [facility] Comment on above: Result Comment: PERF ORMED BY: [place] [address] PATHOLOGIST [employer] JIANLAN SUN M.D. Performed By: #### H EPATIC, CREAT, CBC, ESR #### [facility] [address] Creatinine [Mass/volume] in Serum or PlasmaOrdered By: Kyle Calderon on 11-03-2022 Creatinine [Mass/Vol] 0.80 mg/dL 0.60-1.20 [facility] Eosinophils Auto (Bld) [#/Vo l]Ordered By: Kyle Calderon on 11-03-2022 Eosinophils (Bld) [#/Vol] 0.2 10*3/uL 0.0-0.45 [facility] Eosinophils/100 WBC Auto (Bl d)Ordered By: Kyle Calderon on 11-03-2022 Eosinophils/100 WBC (Bld) 1.4 % . [facility] Erythrocyte Sedimentation Ra moon 11-03-2022 ESR (Bld) [Velocity] 12 mm/h Normal 0-29 [facility] Comment on above: Result Comment: PERF ORMED BY: [place] [address] PATHOLOGIST [employer] TAMERA DAO M.D. Performed By: #### H EPATIC, CREAT, CBC, ESR #### [facility] [address] Erythrocyte distribution wid th Auto (RBC) [Ratio]Ordered By: Kyle Calderon on 11-03-2022 Erythrocyte distribution width (RBC) [Ratio] 14.6 % 11.9-15.3 [facility] Erythrocyte sedimentation ra te by Photometric methodOrdered By: Kyle Calderon on 11-03-2022 ESR Photometric method (Bld) [Velocity] 12 mm/hr 0-29 [facility] Globulin Calc (S) [Mass/Vol] Ordered By: Kyle Calderon on 11-03-2022 Globulin (S) [Mass/Vol] 2.2 g/dL [facility] Hematocrit Auto (Bld) [Volum e fraction]Ordered By: Kyle Calderon on 11-03-2022 Hematocrit (Bld) [Volume fraction] 37.2 % 34.0-46.4 [facility] Hemoglobin [Mass/volume] in BloodOrdered By: Kyle Calderon on 11-03-2022 Hemoglobin (Bld) [Mass/Vol] 12.4 g/dL 11.8-15.4 [facility] Hepatic Panelon 11-03-2022 Albumin [Mass/Vol] 4.0 g/dL Normal 3.5-5.7 [facility] Comment on above: Performed By: #### H EPATIC, CREAT, CBC, ESR #### [facility] [address] Albumin/Globulin [Mass ratio] 1.8 {ratio} Normal [facility] Comment on above: Performed By: #### H EPATIC, CREAT, CBC, ESR #### [facility] [address] ALP [Catalytic activity/Vol] 95 U/L Normal 34-104 [facility] Comment on above: Performed By: #### H EPATIC, CREAT, CBC, ESR #### [facility] [address] ALT [Catalytic activity/Vol] 41 U/L Normal 7-52 [facility] Comment on above: Performed By: #### H EPATIC, CREAT, CBC, ESR #### [facility] [address] AST [Catalytic activity/Vol] 17 U/L Normal 13-39 [facility] Comment on above: Performed By: #### H EPATIC, CREAT, CBC, ESR #### [facility] [address] Bilirubin [Mass/Vol] 0.7 mg/dL Normal 0.3-1.0 [facility] Comment on above: Performed By: #### H EPATIC, CREAT, CBC, ESR #### [facility] [address] [place] [address] [place] Bilirubin,Indirect 0.6 mg/dL Normal [facility] Comment on above: Performed By: #### H EPATIC, CREAT, CBC, ESR #### [facility] [address] Bilirubin.indirect [Mass/Vol] 0.10 mg/dL Normal 0.03-0.18 [facility] Comment on above: Performed By: #### H EPATIC, CREAT, CBC, ESR #### [facility] [address] Globulin (S) [Mass/Vol] 2.2 g/dL Normal [facility] Comment on above: Performed By: #### H EPATIC, CREAT, CBC, ESR #### [facility] [address] Protein [Mass/Vol] 6.2 g/dL Low 6.4-8.9 [facility] Comment on above: Performed By: #### H EPATIC, CREAT, CBC, ESR #### [facility] [address] Leukocytes [#/volume] correc edd for nucleated erythrocytes in Blood by Automated counOrdered By: Kyle Calderon on 11-03-2022 WBC corrected for nucl RBC Auto (Bld) [#/Vol] 12.0 10*3/uL 3.8-11.6 [facility] Lymphocytes Auto (Bld) [#/Vo l]Ordered By: Kyle Calderon on 11-03-2022 Lymphocytes (Bld) [#/Vol] 1.5 10*3/uL 1.00-4.8 [facility] Lymphocytes/100 WBC Auto (Bl d)Ordered By: Kyle Calderon on 11-03-2022 Lymphocytes/100 WBC (Bld) 12.4 % . [facility] MCH Auto (RBC) [Entitic mass ]Ordered By: Kyle Calderon on 11-03-2022 MCH (RBC) [Entitic mass] 31.0 pg 24.7-34.3 [facility] MCHC Auto (RBC) [Mass/Vol]Or dered By: Kyle Calderon on 11-03-2022 MCHC (RBC) [Mass/Vol] 33.3 g/dL 32.0-35.0 [facility] MCV Auto (RBC) [Entitic vol] Ordered By: Kyle Calderon on 11-03-2022 MCV (RBC) [Entitic vol] 93.2 fL 80-100 [facility] Monocytes Auto (Bld) [#/Vol] Ordered By: Kyle Calderon on 11-03-2022 Monocytes (Bld) [#/Vol] 0.9 10*3/uL 0.0-0.8 [facility] Monocytes/100 WBC Auto (Bld) Ordered By: Kyle Calderon on 11-03-2022 Monocytes/100 WBC (Bld) 7.2 % . [facility] Neutrophils Auto (Bld) [#/Vo l]Ordered By: Kyle Calderon on 11-03-2022 Neutrophils (Bld) [#/Vol] 9.4 10*3/uL 1.8-7.7 [facility] Neutrophils/100 WBC Auto (Bl d)Ordered By: Kyle Calderon on 11-03-2022 Neutrophils/100 WBC (Bld) 78.1 % . [facility] No Panel InformationOrdered By: Kyle Calderon on 11-03-2022 Estimated GFR (CKD-EPI) > 60.0 mL/Min [facility] Creatinine Clearance (Chem N/A [facility] Nucleated erythrocytes [Pres ence] in Blood by Automated countOrdered By: Kyle Calderon on 11-03-2022 Nucleated RBC Auto Ql (Bld) 0.0 /100{WBC} 0-0.5 [facility] Platelet mean volume Auto (B ld) [Entitic vol]Ordered By: Kyle Calderon on 11-03-2022 Platelet mean volume (Bld) [Entitic vol] 8.4 fL 6.3-10.7 [facility] Platelets Auto (Bld) [#/Vol] Ordered By: Kyle Calderon on 11-03-2022 Platelets (Bld) [#/Vol] 220 10*3/uL 150-450 [facility] Protein [Mass/volume] in Ser um or PlasmaOrdered By: Kyle Calderon on 11-03-2022 Protein [Mass/Vol] 6.2 g/dL 6.4-8.9 [facility] RBC Auto (Bld) [#/Vol]Ordere d By: Kyle Calderon on 11-03-2022 RBC (Bld) [#/Vol] 3.99 10*6/uL 3.60-5.00 [facility] Serum or plasma albumin/glob ulin mass ratioOrdered By: Kyle Calderon on 11-03-2022 Albumin/Globulin [Mass ratio] 1.8 {ratio} [facility] Serum or plasma non-glucuron idated bilirubin measurement (mass/volume)Ordered By: Kyle Calderon on 11-03-2022 Bilirubin.indirect [Mass/Vol] 0.6 mg/dL [facility] WBC Auto (Bld) [#/Vol]Ordere d By: Kyle Calderon on 11-03-2022 WBC (Bld) [#/Vol] 12.0 10*3/uL 3.8-11.6 [facility] XR pelvis 1-2Von 09-29-2022 XR pelvis 1-2V [facility] [employer] Other XR pelvis 1-2V [facility] [employer] Other XR pelvis 1-2V [address] [place] [address] [employer] Other XR pelvis 1-2[place] [address] No rt [employer] Other XR pelvis 1-2V [employer] Other XR pelvis 1-2V Signed [employer] Other XR pelvis 1-2V Patient: Laly Villar MR#: [id number] Wedron [employer] Other XR pelvis 1-2V 03 [employer] Other XR pelvis 1-2V : 1965 Acct:[id number] [employer] Other XR pelvis 1-2V Age/Sex: 57 / F ADM Date: 09/29/22 [employer] Other XR pelvis 1-2V Loc: SOXD Room: Type : [facility] [employer] Other XR pelvis 1-2V Attending Dr: Kyle Call II, MD [employer] Other XR pelvis 1-2V Copies to: Kyle Call MD [employer] Other XR pelvis 1-2V Ordering Provider: Kyle Call MD [employer] Other XR pelvis 1-2V Date of Service: 09/29/22 [employer] Other XR pelvis 1-2V XR/XR pelvis 1-2V: S32.591D [employer] Other XR pelvis 1-2V Pelvis 3 views. [employer] Other XR pelvis 1-2V CLINICAL HISTORY: Right superior/inferior pubic rami fractures [employer] Other XR pelvis 1-2V COMPARISON: Pelvis study 07/07/2022 [employer] Other XR pelvis 1-2V Examination is suboptimal due to body habitus. [employer] Other XR pelvis 1-2V The patient's right-sided pubic rami fractures are less conspicuous when compared to the prior study [employer] Other XR pelvis 1-2V with questionable calculus formation along the inferior pubic ramus fracture suggestive of healing [employer] Other XR pelvis 1-2V response. No change in alignment is seen. No new additional fractures are noted. Mild degenerative [employer] Other XR pelvis 1-2V changes are noted involving the hips and SI joints. [employer] Other XR pelvis 1-2V XR/XR pelvis 1-2V [employer] Other XR pelvis 1-2V IMPRESSION: [employer] [facility] Other XR pelvis 1-2V HEALING PUBIC RAMI FRACTURES. [employer] Other XR pelvis 1-2V Impression dictated by: Kavon Choi Jr., D.O.09/29/2022 9:46 AM [employer] Other XR pelvis 1-2V Dictation Location: [place] [address] [employer] Other XR pelvis 1-2V Transcribed By: PWS 09/29/22 0946 [employer] Other XR pelvis 1-2V Dictated By: Kavon Choi Jr, DO 09/29/22 0944 [employer] Other XR pelvis 1-2V Signed By: [employer] Other XR pelvis 1-2V 09/29/22 0946 [employer] Other MR hip RT wo conon 3 MR hip RT wo con [facility] [employer] Other MR hip RT wo con [facility] [place] No rt [employer] Other MR hip RT wo con [address] [facility] [employer] [place] [address] [employer] Other MR hip RT wo con MRI Report [employer] Other MR hip RT wo con Signed [employer] Other MR hip RT wo con Patient: Laly Villar MR#: [id number] [employer] Other MR hip RT wo con 03 [employer] Other MR hip RT wo con : 1965 Acct:[id number] [employer] Other MR hip RT wo con Age/Sex: 57 / F ADM Date: 07/27/22 [employer] Other MR hip RT wo con Loc: ICMR Room: Type : REG CLI [employer] Other MR hip RT wo con Attending Dr: Kyle Call II, MD [employer] Other MR hip RT wo con Copies to: Kyle Call MD [employer] Other MR hip RT wo con Ordering Provider: Kyle Call MD [employer] Other MR hip RT wo con Date of Service: 07/27/22 [employer] Other MR hip RT wo con MR/MR hip RT wo con: S32.591A CLOSED FX RAMUS OF RIGHT PUBUS [employer] Other MR hip RT wo con MRI of the right hip without IV contrast. [employer] Other MR hip RT wo con Reason for exam: History of right inferior pubic ramus fracture. Right hip pain. [employer] Other MR hip RT wo con COMPARISON: Pelvis 07/07/2022 [employer] Other MR hip RT wo con FINDINGS: Minimal joint effusion is seen. There appears to be a fractures involving the right [employer] Other MR hip RT wo con superior and inferio r pubic ramus with associated bone marrow edema. No significant displacement of [employer] Other MR hip RT wo con these fractures are seen. Labrum appears grossly intact. No hip fracture is seen. Muscle groups [employer] Other MR hip RT wo con appear grossly unremarkable. Visualized intrapelvic contents demonstrate no acute findings. [employer] Other MR hip RT wo con MR/MR hip RT wo con [employer] Other MR hip RT wo con IMPRESSION: Nondisplaced fractures involving the right superior and inferior pubic ramus with [employer] Other MR hip RT wo con associated bone marrow edema. [employer] Other MR hip RT wo con Impression dictated by: Kavon Choi Jr., D.OReilly07/27/2022 11:43 AM [facility] [employer] Other MR hip RT wo con Dictation Location: [address] [employer] Other MR hip RT wo con Transcribed By: PWS 07/27/[address] [place] [address] [employer] Other MR hip RT wo con Dictated By: Kavon Choi Jr, DO 07/27/22 [facility] [employer] Other MR hip RT wo con Signed By: [employer] [facility] [employer] Other MR hip RT wo con 07/27/22 [facility] [employer] Other XR pelvis 1-2Von 07-07-2022 XR pelvis 1-2V [facility] [employer] Other XR pelvis 1-2V [facility] [employer] Other XR pelvis 1-2V [address] [place] [address] [employer] Other XR pelvis 1-2[place] [address] No rt [employer] Other XR pelvis 1-2V [employer] Other XR pelvis 1-2V Signed [employer] Other XR pelvis 1-2V Patient: Laly Villar MR#: [id number] Wedron [employer] Other XR pelvis 1-2V 03 [employer] Other XR pelvis 1-2V : 1965 Acct:[id number] [employer] Other XR pelvis 1-2V Age/Sex: 57 / F ADM Date: 07/07/22 [employer] Other XR pelvis 1-2V Loc: SOXD Room: Type : [facility] CLI [employer] Other XR pelvis 1-2V Attending Dr: Kyle Call II, MD [employer] Other XR pelvis 1-2V Copies to: Kyle Call MD [employer] Other XR pelvis 1-2V Ordering Provider: Kyle Call MD [employer] Other XR pelvis 1-2V Date of Service: 07/07/22 [employer] Other XR pelvis 1-2V XR/XR hip RT min 2V(w/wo pelvis)*: PAIN [employer] Other XR pelvis 1-2V ([id number]) XR/XR pelvis 1-2V: PAIN [employer] Other XR pelvis 1-2V 2 views right hip single view pelvisplain film [employer] Other XR pelvis 1-2V COMPARISON:None [employer] Other XR pelvis 1-2V HISTORY:Status post right pubic rami fracture. Right hip pain [employer] Other XR pelvis 1-2V The nondisplaced right inferior pubic ramus fracture redemonstrated. Bony alignment unchanged. No [employer] Other XR pelvis 1-2V hip fracture. Adequate hip joint space.No significant degeneration. Articular surfaces preserved. [employer] Other XR pelvis 1-2V XR/XR hip RT min 2V(w/wo pelvis)* [employer] Other XR pelvis 1-2V IMPRESSION:Unchanged right inferior pubic ramus fracture. No hip fracture. [employer] Other XR pelvis 1-2V 2 views of the pelvis [employer] Other XR pelvis 1-2V Nondisplaced right inferior pubic ramus fracture identified. No additional fractures seen. No [employer] Other XR pelvis 1-2V diastases of the SI joints. Hip joint space is adequate. No hip fracture. [employer] Other XR pelvis 1-2V IMPRESSION: Nondisplaced right inferior pubic ramus fracture. [employer] Other XR pelvis 1-2V Impression dictated by: Ceasar Angeles M.D.07/07/2022 5:19 PM [employer] Other XR pelvis 1-2V Dictation Location: [facility]--12 [employer] Other XR pelvis 1-2V Transcribed By: PWS 07/07/22 1719 [employer] Other XR pelvis 1-2V Dictated By: Ceasar Angeles DO 07/07/22 171 [employer] Other XR pelvis 1-2V Signed By: Yaphie Other XR pelvis 1-2V 07/07/22 1714 [employer] Other [facility]17 SARS-CoV-2 (COVID-19) RNA NANCY+probe Ql (Unsp spec) Detected Critically abnormal NOT DETECTED [facility] Comment on above: Result Comment: This test is not yet approved or cleared by the [place] FDA. When there are no FDA-approved or cleared tests available, and other criteria are met, FDA can make tests available under an emergency access mechanism called an Emergency Use Authorization (EUA). The EUA for this test is supported by the [place] of Health and Human Service's (HHS's) declaration [...] used). Performed By: #### C VDTBH #### [facility] [address] [place] [address] Dr. Heather Khan INFLUENZA A AND B [facility] 06-30 [facility] SEE BELOW Normal [facility] Comment on above: Result Comment: Nega tive for Flu A protein angiten. Infection due to Flu A cannot be ruled out. Flu A angiten in the sample may be below the detection limit of the test. Performed By: #### I NFLUAB #### [facility] [address] [place] [address] Dr. [facility] Normal [facility] Comment on above: Result Comment: Nega tive for Flu B protein antigen. Infection due to Flu B cannot be ruled out. Flu B antigen in the sample may be below the detection limit of the test. Performed By: #### I NFLUAB #### [facility] [address] [place] [address] Dr. Heather Khan INFLUENZA A AG Negative Normal NEGATIVE SEE COMMENT [facility] Comment on above: Performed By: #### I NFLUAB #### [facility] [address] [place] [address] Dr. Heather Khan INFLUENZA B AG Negative Normal NEGATIVE SEE COMMENT [facility] Comment on above: Performed By: #### I NFLUAB #### [facility] [address] [place] [address] Dr. Heather Khan INTERNAL CONTROLS Within Normal Limits Normal Wi thin Normal Limits [facility] Comment on above: Performed By: #### I NFLUAB #### [facility] [address] [place] [address] Dr. Heather Khan CULTURE WOUNDon 05-22-2022 CULTURE [...] F Oxacillin <=0.25 S F Normal [facility] Comment on above: Performed By: #### W OUNDCX #### [facility] [address] [address] [address] Heather Khan Office Visit (Cardiology)on 03-18-2022 [...] With Amanuel Fonseca NP Chief Complaint FELICITY VILLAR is being seen for an annual follow-up [...] OCCASIONAL COFFEE Former smoker (V15.82) (Z87.891) QUIT 1987 07/2 PPD No alcohol use No illicit drug [...] Recorded: 18Mar2022 08:56AM Heart Rate78, R Radial Ohqqzrjn817, LUE, Sitting Cutwinbin70, LUE, Sitting Height5 ft 1 in Eenuhl866 lb 4 oz BMI Rakypkjrgj03.69 kg/m2 BSA Calculated2.01 Tobacco Useb) No PHQ-2 [...] skin turgor (more content not included)... Normal [employer] Tobacco Screening.on 022 Adult depression screening assessment No [facility] 250 DO Work Phone: Tobacco use status CPHS b) No [facility] 250 DO Work Phone: XR HIP LT [...] MIGUEL SERNA Date: 2022-03-01 09:02 Normal [facility] Body fluid albumin measureme nt (mass/volume)Ordered By: Kyle Calderon on 02-22-2022 Albumin (Body fld) [Mass/Vol] 3.6 g/dL 3.2-5.5 [facility] Direct bilirubin measurement Ordered By: Kyle Calderon on 02-22-2022 Bilirubin.direct [Mass/Vol] 0.1 mg/dL 0.0-0.4 [facility] Globulin Calc (S) [Mass/Vol] Ordered By: Kyle Calderon on 02-22-2022 Globulin (S) [Mass/Vol] 3.0 g/dL [facility] Protein [Mass/volume] in Ser um or PlasmaOrdered By: Kyle Calderon on 02-22-2022 Protein [Mass/Vol] 6.6 g/dL 6.1-7.9 [facility] Serum or plasma alanine gilbert otransferase measurement without P-5'-P (enzymatic activiOrdered By: Kyle Calderon on 02-22-2022 ALT No additional P-5'-P [Catalytic activity/Vol] 26 U/L 10-60 [facility] [place] Serum or plasma albumin/glob ulin mass ratioOrdered By: Kyle Calderon on 02-22-2022 Albumin/Globulin [Mass ratio] 1.2 {ratio} [facility] Serum or plasma alkaline steven sphatase measurement (enzymatic activity/volume)Ordered By: Kyle Calderon on 02-22-2022 ALP [Catalytic activity/Vol] 74 U/L 32-92 [facility] [place] Serum or plasma aspartate am inotransferase measurement (enzymatic activity/volume)Ordered By: Kyle Calderon on 02-22-2022 AST [Catalytic activity/Vol] 24 U/L 10-42 [facility] [place] Serum or plasma non-glucuron idated bilirubin measurement (mass/volume)Ordered By: Kyle Calderon on 02-22-2022 Bilirubin.indirect [Mass/Vol] 0.1 mg/dL [facility] [place] Serum or plasma total biliru bin measurement (mass/volume)Ordered By: Kyle Calderon on 02-22-2022 Bilirubin [Mass/Vol] 0.2 mg/dL 0.3-1.2 [facility] Basophils Auto (Bld) [#/Vol] Ordered By: Kyle Calderon on 02-10-2022 Basophils (Bld) [#/Vol] 0.1 10*3/uL 0.0-0.2 [facility] [place] Basophils/100 WBC Auto (Bld) Ordered By: Kyle Calderon on 02-10-2022 Basophils/100 WBC (Bld) 0.6 % . [facility] [place] Blood hemoglobin measurement (mass/volume)Ordered By: Kyle Calderon on 02-10-2022 Hemoglobin (Bld) [Mass/Vol] 11.9 g/dL 11.8-15.4 [facility] [place] Blood leukocytes automated c ount (number/volume)Ordered By: Kyle Calderon on 02-10-2022 WBC (Bld) [#/Vol] 11.4 10*3/uL 4.5-11.0 [facility] Creatinine and Glomerular fi ltration rate.predicted panel (S/P/Bld)Ordered By: Kyle Calderon on 02-10-2022 Creatinine [Mass/Vol] 0.93 mg/dL 0.44-1.03 [facility] Eosinophils Auto (Bld) [#/Vo l]Ordered By: Kyle Calderon on 02-10-2022 Eosinophils (Bld) [#/Vol] 0.2 10*3/uL 0.0-0.45 [facility] [place] Eosinophils/100 WBC Auto (Bl d)Ordered By: Kyle Calderon on 02-10-2022 Eosinophils/100 WBC (Bld) 1.8 % . [facility] [place] Erythrocyte distribution wid th Auto (RBC) [Ratio]Ordered By: Kyle Calderon on 02-10-2022 Erythrocyte distribution width (RBC) [Ratio] 14.0 % 11.9-15.3 [facility] [place] Erythrocyte sedimentation ra te by Photometric methodOrdered By: Kyle Calderon on 02-10-2022 ESR Photometric method (Bld) [Velocity] 30 mm/hr 0-29 [facility] [place] Estimated glomerular filtrat ion rate (GFR) non- AmericanOrdered By: Kyle Calderon on 02-10-2022 GFR/1.73 sq M.predicted among non-blacks MDRD (S/P/Bld) [Vol rate/Area] > 60 mL/Min [facility] [place] Hematocrit Auto (Bld) [Volum e fraction]Ordered By: Kyle Calderon on 02-10-2022 Hematocrit (Bld) [Volume fraction] 35.9 % 34.0-46.4 [facility] [place] Hepatitis A virus Ab [Presen ce] in Serum by ImmunoassayOrdered By: Kyle Calderon on 02-10-2022 HAV Ab IA Ql (S) Negative Negative [facility] Comment on above: Performed at: [place] [id number] Estate Tax Examiner: Thompson Osullivan PhD, Phone: [phone] Hepatitis B virus surface Ag [Presence] in Serum or Plasma by ImmunoassayOrdered By: Kyle Calderon on 02-10-2022 HBV surface Ag IA Ql Negative Negative [facility] - Hematology and Cell countsOrdered By: Kyle Calderon on 02-10-2022 Nucleated RBC/100 WBC (Bld) [Ratio] 0.1 % 0-0.5 [facility] [place] Lymphocytes Auto (Bld) [#/Vo l]Ordered By: Kyle Calderon on 02-10-2022 Lymphocytes (Bld) [#/Vol] 1.5 10*3/uL 1.00-4.8 [facility] [place] Lymphocytes/100 WBC Auto (Bl d)Ordered By: Kyle Calderon on 02-10-2022 Lymphocytes/100 WBC (Bld) 13.0 % . [facility] MCH Auto (RBC) [Entitic mass ]Ordered By: Kyle Calderon on 02-10-2022 MCH (RBC) [Entitic mass] 30.1 pg 24.7-34.3 [facility] [place] MCHC Auto (RBC) [Mass/Vol]Or dered By: Kyle Calderon on 02-10-2022 MCHC (RBC) [Mass/Vol] 33.1 g/dL 32.0-35.0 [facility] MCV Auto (RBC) [Entitic vol] Ordered By: Kyle Calderon on 02-10-2022 MCV (RBC) [Entitic vol] 91.1 fL 80-100 [facility] [place] Monocytes Auto (Bld) [#/Vol] Ordered By: Kyle Calderon on 02-10-2022 Monocytes (Bld) [#/Vol] 0.6 10*3/uL 0.0-0.8 [facility] [place] Monocytes/100 WBC Auto (Bld) Ordered By: Kyle Calderon on 02-10-2022 Monocytes/100 WBC (Bld) 5.3 % . [facility] Neutrophils Auto (Bld) [#/Vo l]Ordered By: Kyle Calderon on 02-10-2022 Neutrophils (Bld) [#/Vol] 9.0 10*3/uL 1.8-7.7 [facility] [place] Neutrophils/100 WBC Auto (Bl d)Ordered By: Kyle Calderon on 02-10-2022 Neutrophils/100 WBC (Bld) 79.3 % . [facility] No Panel InformationOrdered By: Kyle Calderon on 02-10-2022 Estimated GFR () > 60 mL/Min [facility] [place] Comment on above: GFR estimated refere nce range: According to KDOQI guidelines, <60 ml/min/1.73m2 is sufficient to diagnose a patient with chronic kidney disease. Hepatitis B Core Total Antibody Negative Negative [facility] [place] Hepatitis C Interpretation See comment . [facility] [place] Comment on above: Negative Not infected with HCV, unless recent infection is suspected or other evidence exists to indicate HCV infection. Hepatitis C RNA Quantitative N/A [facility] [place] [facility] Creatinine Clearance (Chem N/A [facility] Platelet mean volume Auto (B ld) [Entitic vol]Ordered By: Kyle Calderon on 02-10-2022 Platelet mean volume (Bld) [Entitic vol] 8.2 fL 6.3-10.7 [facility] Platelets Auto (Bld) [#/Vol] Ordered By: Kyle Calderon on 02-10-2022 Platelets (Bld) [#/Vol] 272 10*3/uL 150-450 [facility] [place] RBC Auto (Bld) [#/Vol]Ordere d By: Kyle Calderon on 02-10-2022 RBC (Bld) [#/Vol] 3.95 10*6/uL 3.60-5.00 [facility] Serum hepatitis B virus surf [place] antibody detectionOrdered By: Kyle Calderon on 02-10-2022 HBV surface Ab Ql (S) Non-Reactive . [facility] Comment on above: Non Reactive: Incons istent with immunity, less than 10 mIU/mL Reactive: Consistent with immunity, greater than 9.9 mIU/mL Serum or plasma hepatitis C virus antibody signal/cutoff ratio by immunoassay (relatiOrdered By: Kyle Calderon on 02-10-2022 HCV Ab Signal/Cutoff IA [Rel units/Vol] 0.1 s/co ratio 0.0-0.9 [facility] MUGA SCAN INJECTIONon [facility] MUGA SCAN INJECTION Patient Name: FELICITY VILLAR STUDY: MUGA Performing facility: [facility], [address] [place] [address], [address], [address] Provider: Amanuel Valladares RN, PROSPECTING OBSERVER PCP: Dr. Lorenzo Quinn Supervising provider: Yanet Rojas MD INDICATION: SOB; Non-ischemic cardiomyopathy HISTORY: Gender: F; Age: 55 y/o ; Height: 154.94 cm; Weight: 465.4179076 kg. HTN; SOB; Quit smoking unknown years ago. Cardiac catheterization on 2016. COMPARISON: Previous nuclear testing completed [id number] at [facility]. Previous echo testing completed at [facility]. ACCESSION NUMBER(S): [id number]; [id number] ORDERING CLINICIAN: AMANUEL VALLADARES TECHNIQUE: The patient [...] up to 64% Electronically signed by: YANET ROJAS MD [facility] [place] Echocardiogramon 09-04-[address], [address] [place] [address] TRANSTHORACIC ECHOCARDIOGRAM REPORT Patient Name: FELICITY VILLAR Reading Physician: [id number] Jose Carlos Hernandez DO Study Date: 09/04/2020 Referring Physician: [id number] AMANUEL VALLADARES MRN/PID: [id number] PCP: Jose Antonio Quinn Accession/Order#: [id number] Department Location: [facility] Date of : 1965 Fellow: Gender: F Nurse: Nyasia Cain RN Admit Date: Seating Captain: Judy Rocha RDCS, T Height: 154.94 cm CC Report to: Weight: 104.78 kg Study Type: Echocardiogram BSA: 2.01 m2 Blood Pressure: 128 /68 mmHg Diagnosis/ICD: I42.8-Other cardiomyopathies; R06.02-Shortness of breath Indication: HTN, CHARBEL, Former Smoker, Morbid Obesity Procedure/CPT: Echo Complete w Full Doppler-[id number] Study Detail: The following Echo studies were [...] mmHg PIEDV: 1.78 m/s PADP: 15.7 mmHg [id number] Jose Carlos Hernandez DO Electronically signed on 09/04/2020 at 4:00:50 PM Final [facility] [place] OBSOLETEon 08-02-2018 OBSOLETE Refill (CARDMM) FELICITY VILLAR ([id number]) 1965 F Date Time Provider Department 08/02/18 CEASAR GALLOWAY During your visit today, we recorded the following information about you: Maye Vora 08/02/2018 9:23 AM Signed Pharmacy verified in [facility] Patient has been identified by name and date of : Yes Prescription must be called to the pharmacy (non-escript). [facility] phone [phone]. Please call patient after medication has been [...] applicable Please advise. Maye Vora Brandie Amaral APRN.PROSPECTING OBSERVER 08/03/2018 9:25 AM Signed We have no [...] copy of the labs. Thanks, Brandie Amaral APRN.PROSPECTING OBSERVER Allergies As of Date: 08/02/2018 Noted Allergy Reaction SULFAMETHOXAZOLE-TRIM ETHOPRIM 12/21/2016 4 - Hives Date Reviewed: 05/30/2018 Reviewed by: Ceasar Galloway - Fully Assessed Reason for Visit: Refill [...] Status:Closed by BRANDIE AMARAL CNP on 08/03/18 [facility] CNOVmohan 05-30-2018 CNOV Office Visit (CARDFT ) FELICITY VILLAR ([id number]) 1965 F Date Time Provider Department 05/30/18 9:30 AM CEASAR GALLOWAY During your visit today, we recorded the following information about you: Pulse Blood pressure Weight Height 82/minute 142/80 105.1 kg 1.524 m Ceasar Galloway MD 05/30/2018 9:42 AM [facility] [place] Nataly Rodriguez Department of Cardiovascular Medicine OUTPATIENT VISIT DATE 05/30/18 OUTPATIENT VISIT TYPE ESTABLISHED PRIMARY CARE PHYSICIAN: Jose Antonio Quinn MD [address] [place] [phone] CHIEF COMPLAINT: Patient presents with: Follow Up HISTORY OF PRESENT ILLNESS: Felicity Villar is a 51 year old female with [...] visit. Apparently she had a hospitalization at [facility] which led to transfer to [facility] [...] T-wave changes. The patient was sent to [place] emergency room where she was evaluated and [...] U.S. Mail. This document was generated utilizing [employer]. I have reviewed and verified that the contents of the document are accurate with the exception of minor grammatical, spelling and punctuation errors. CONTACT INFORMATION: Thank you for allowing us to participate in the care of this very pleasant patient. Please free to contact us if we can be of any further assistance. Ceasar Galloway MD, [facility] Kyle and Danna Rodriguez Department of Cardiovascular Medicine [facility] [place] [address] [address] [place], [place] [address] Office: [phone] Referring Provider: JOSE ANTONIO QUINN [[id number]] Allergies As of Date: 05/30/2018 Noted Allergy Reaction SULFAMETHOXAZOLE-TRIM ETHOPRIM 12/21/2016 4 - Hives Date Reviewed: 05/30/2018 Reviewed by: Ceasar Galloway - Fully Assessed Reason for Visit: Follow [...] heart f*INVALID FOR* Encounter Status:Closed by JENNY GALLOWAY MD on 05/30/18 Normal [facility] [place] [facility] PROGRESSon 05-30-2018 Protein mass conc HNO ID: [id number] Author: Ceasar Galloway Service: (none) Author Type: Physician Type: Progress Notes Filed: 05/30/2018 9:42 AM Note Text: [facility] [place] Nataly Rodriguez Department of Cardiovascular Medicine OUTPATIENT VISIT DATE 05/30/18 OUTPATIENT VISIT TYPE ESTABLISHED PRIMARY CARE PHYSICIAN: Jose Antonio Quinn MD [address] [facility] [phone] CHIEF COMPLAINT: Patient presents with: Follow Up HISTORY OF PRESENT ILLNESS: Fleicity Villar is a 51 year old female with [...] visit. Apparently she had a hospitalization at [facility] [...] T-wave changes. The patient was sent to [place] emergency room where she was evaluated and [...] U.S. Mail. This document was generated utilizing [employer]. I have reviewed and verified that the contents of the document are accurate with the exception of minor grammatical, spelling and punctuation errors. CONTACT INFORMATION: Thank you for allowing us to participate in the care of this very pleasant patient. Please free to contact us if we can be of any further assistance. Ceasar Galloway MD, [facility] Nataly Rodriguez Department of Cardiovascular Medicine [facility] [place] [facility] [address] [place], [place] [address] Office: [phone] [facility] CNOVon 01-30-2018 CNOV Office Visit (CARDFT ) FELICITY VILLAR ([id number]) 1965 F Date Time Provider Department 01/30/18 10:30 AM CEASAR GALLOWAY During your visit today, we recorded the following information about you: Pulse Respiration Blood pressure Weight 69/minute 16/minute 133/74 102.1 kg Ceasar Galloway MD 01/30/2018 11:03 AM [facility] [place] Nataly Rodriguez Department of Cardiovascular Medicine OUTPATIENT VISIT DATE 01/30/18 OUTPATIENT VISIT TYPE ESTABLISHED PRIMARY CARE [place]YSIC[place]: [place] [address] [place] [phone] CHIEF COMPLAINT: Patient presents with: Follow Up HISTORY OF PRESENT ILLNESS: Felicity Villar is a 51 year old female with [...] visit. Apparently she had a hospitalization at [facility] [...] T-wave changes. The patient was sent to [place] emergency room where she was evaluated and [...] U.S. Mail. This document was generated utilizing [employer] dictation. I have reviewed and verified that the contents of the document are accurate with the exception of minor grammatical, spelling and punctuation errors. CONTACT INFORMATION: Thank you for allowing us to participate in the care of this very pleasant patient. Please free to contact us if we can be of any further assistance. Ceasar Galloway MD, [facility] Nataly Rodriguez Department of Cardiovascular Medicine [facility] [place] [address] [place] [address] Office: [phone] Referring Provider: JOSE ANTONIO QUINN [[id number]] Allergies As of Date: 01/30/2018 Noted Allergy Reaction SULFAMETHOXAZOLE-TRIM ETHOPRIM 12/21/2016 4 - Hives Date Reviewed: 01/30/2018 Reviewed by: Ceasar Galloway - Fully Assessed Reason for Visit: Follow [...] Health Care Provider Encounter Status:Closed by JENNY GALLOWAY MD on 01/30/18 [facility] PROGRESSon 01-30-2018 Protein mass conc HNO ID: [id number] Author: Ceasar Galloway Service: (none) Author Type: Physician Type: Progress Notes Filed: 01/30/2018 11:03 AM Note Text: [facility] [place] Nataly Rodriguez Department of Cardiovascular Medicine OUTPATIENT VISIT DATE 01/30/18 OUTPATIENT VISIT TYPE ESTABLISHED PRIMARY CARE PHYSICIAN: Jose Antonio Quinn MD [facility] [facility] [phone] CHIEF COMPLAINT: Patient presents with: Follow Up HISTORY OF PRESENT ILLNESS: Felicity Villar is a 51 year old female with [...] visit. Apparently she had a hospitalization at [facility] [...] T-wave changes. The patient was sent to [place] emergency room where she was evaluated and [...] U.S. Mail. This document was generated utilizing [employer] dictation. I have reviewed and verified that the contents of the document are accurate with the exception of minor grammatical, spelling and punctuation errors. CONTACT INFORMATION: Thank you for allowing us to participate in the care of this very pleasant patient. Please free to contact us if we can be of any further assistance. Ceasar Galloway MD, [facility] Nataly Rodriguez Department of Cardiovascular Medicine [facility] [place] [address] Office: [phone] Normal [facility] [place] [facility] Vital Signs Date Time Vital Sign Value Performing Clinician Facility 01-18-2024 19:33-0400 Body temperature 98.24 [degF] InauraguillerminaInstamediacleo [employer] [facility] 01-18-2024 19:33-0400 Diastolic blood pressure 64 mm[Hg] InauraguillerminaInstamediacleo Patton [facility] 01-18-2024 19:33-0400 Heart rate 86 /min InauraguillerminaInstamediacleo [employer] [facility] 01-18-2024 19:33-0400 Respiratory rate 18 /min Lauren Patton [facility] 01-18-2024 19:33-0400 SaO2% (BldA) [Mass fraction] 97 % Lauren Patton [facility] 01-18-2024 19:33-0400 Systolic blood pressure 140 mm[Hg] Lauren Patton [facility] 11-10-2023 14:38-0400 Body height 154.9 cm Amanuel Valladares COASTAL TUG MATE-PROSPECTING OBSERVER Work Phone: [facility] 11-10-2023 14:38-0400 Body mass index (BMI) [Ratio] 40.43 kg/m2 Amanuel Valladares COASTAL TUG MATE-PROSPECTING OBSERVER Work Phone: [facility] 11-10-2023 14:38-0400 Body weight 97.07 kg Amanuel Valladares COASTAL TUG MATE-PROSPECTING OBSERVER Work Phone: [facility] 11-10-2023 14:38-0400 Diastolic blood pressure 92 mm[Hg] Amanuel Valladares COASTAL TUG MATE-PROSPECTING OBSERVER Work Phone: [facility] 11-10-2023 14:38-0400 Heart rate 69 /min Amanuel Valladares COASTAL TUG MATE-PROSPECTING OBSERVER Work Phone: [facility] 11-10-2023 14:38-0400 Systolic blood pressure 138 mm[Hg] Amanuel Valladares COASTAL TUG MATE-PROSPECTING OBSERVER Work Phone: [facility] 05-31-2023 23:54-0500 Diastolic blood pressure 80 mm[Hg] MD Jose Antonio Quinn Work Phone: [facility] [place] 05-31-2023 23:54-0500 Systolic blood pressure 178 mm[Hg] MD Jose Antonio Quinn Work Phone: [facility] [place] 05-31-2023 21:57-0500 Body height 152.4 cm MD Jose Antonio Quinn Work Phone: [facility] [place] 05-31-2023 21:57-0500 Body temperature 98.9 [degF] MD Jose Antonio Quinn Work Phone: [facility] [place] 05-31-2023 21:57-0500 Body weight 102.65 kg MD Jose Antonio Quinn Work Phone: [facility] [place] 05-31-2023 21:57-0500 Heart rate 98 /min MD Jose Antonio Quinn Work Phone: [facility] [place] 05-31-2023 21:57-0500 Respiratory rate 20 /min MD Jose Antonio Quinn Work Phone: [facility] [place] 05-31-2023 21:57-0500 SaO2% (BldA) [Mass fraction] 96 % MD Jose Antonio Quinn Work Phone: [facility] [place] 05-11-2023 08:13-0400 Body height 154.9 cm Amanuel Valladares COASTAL TUG MATE-PROSPECTING OBSERVER Work Phone: [facility] 05-11-2023 08:13-0400 Body mass index (BMI) [Ratio] 42.32 kg/m2 Amanuel Valladares [employer] MATE-PROSPECTING OBSERVER Work Phone: [facility] 05-11-2023 08:13-0400 Body weight 101.61 kg Amanuel Valladares [employer] MATE-PROSPECTING OBSERVER Work Phone: [facility] 05-11-2023 08:13-0400 Diastolic blood pressure 80 mm[Hg] Amanuel Valladares CO[employer]UG MATE-PROSPECTING OBSERVER Work Phone: [facility] 05-11-2023 08:13-0400 Heart rate 92 /min Amanuel Valladares [employer]AL [employer]UG MATE-PROSPECTING OBSERVER Work Phone: [facility] 05-11-2023 08:13-0400 Systolic blood pressure 130 mm[Hg] Amanuel Valladares COASTAL TUG MATE-PROSPECTING OBSERVER Work Phone: [facility] 02-24-2023 11:56-0400 Body temperature 98.06 [degF] Briana Winters [facility] 08-10-2023 11:56-0400 Diastolic blood pressure 100 mm[Hg] [facility] 02-24-2023 11:56-0400 Heart rate 89 /min [facility] 02-24-2023 11:56-0400 Respiratory rate 16 /min [facility] 02-24-2023 11:56-0400 SaO2% (BldA) [Mass fraction] 98 % [facility] 02-24-2023 11:56-0400 Systolic blood pressure 200 mm[Hg] [facility] 11-25-2022 12:00-0400 Body height 154.94 cm Nancy Kapadia Other [facility] [employer] Other 11-25-2022 12:00-0400 Body mass index (BMI) [Ratio] 45.91 kg/m2 [employer] Other [facility] [employer] Other 11-25-2022 12:00-0400 Body weight 110.22 kg Nancy Kapadia Other [employer] [facility] [employer] Other 11-25-2022 12:00-0400 Diastolic blood pressure 98 mm[Hg] Nancy Kapadia Other [employer] Other 11-25-2022 12:00-0400 Systolic blood pressure 160 mm[Hg] Nancy Kapadia Other [employer] Other 07-07-2022 14:00-0500 Body height 154.94 cm Kyle Call II Other [employer] Other 07-07-2022 14:00-0500 Body mass index (BMI) [Ratio] 41.56 kg/m2 Kyle Call II Other [employer] Other 07-07-2022 14:00-0500 Body weight 99.79 kg Kyle Call II Other [facility] [employer] Other 07-05-2022 13:34-0500 Body height 154.94 cm MD Jose Antonio Quinn Work Phone: [facility] 07-05-2022 13:34-0500 Body temperature 97.5 [degF] MD Jose Antonio Quinn Work Phone: [facility] 07-05-2022 13:34-0500 Body weight 100 kg MD Jose Antonio Quinn Work Phone: [facility] 07-05-2022 13:34-0500 Diastolic blood pressure 98 mm[Hg] MD Jose Antonio Quinn Work Phone: [facility] 07-05-2022 13:34-0500 Heart rate 85 /min MD Jose Antonio Quinn Work Phone: [facility] 07-05-2022 13:34-0500 Respiratory rate 20 /min MD Jose Antonio Quinn Work Phone: [facility] 07-05-2022 13:34-0500 SaO2% (BldA) [Mass fraction] 96 % MD Jose Antonio Quinn Work Phone: [facility] 07-05-2022 13:34-0500 Systolic blood pressure 188 mm[Hg] MD Jose Antonio Quinn Work Phone: [facility] 05-19-2022 14:53-0400 Blood Pressure Location Jose Carlos SALCEDO [facility] [place] 05-19-2022 14:53-0400 Diastolic blood pressure 82 mm[Hg] Jose Carlos SALCEDO [facility] [place] 05-19-2022 14:53-0400 Heart rate 80 /min Jose Carlos SALCEDO [facility] [place] 05-19-2022 14:53-0400 Respiratory rate 16 /min Jose Carlos SALCEDO [facility] [place] 05-19-2022 14:53-0400 Systolic blood pressure 120 mm[Hg] Jose Carlos SALCEDO [facility] [place] 05-10-2022 09:07-0400 Body temperature 98.06 [degF] Mamadou Gonzalez [facility] 05-10-2022 09:07-0400 Diastolic blood pressure 88 mm[Hg] Mamadou Gonzalez [facility] 05-10-2022 09:07-0400 Heart rate 68 /min Mamadou Gonzalez [facility] 05-10-2022 09:07-0400 Respiratory rate 20 /min Mamadou Gonzalez [facility] 05-10-2022 09:07-0400 SaO2% (BldA) [Mass fraction] 98 % Mamadou Gonzalez [facility] 05-10-2022 09:07-0400 Systolic blood pressure 146 mm[Hg] Mamadou Gonzalez [facility] 03-18-2022 08:56-0400 Body height 154.94 cm Jose Antonio Avina Searchd[employer] Work Phone: [facility] 250 DO Work Phone: 03-18-2022 08:56-0400 Body mass index (BMI) [Ratio] 43.69 kg/m2 Jose Antonio Avina [employer] Work Phone: [facility] 250 DO Work Phone: 03-18-2022 08:56-0400 Body surface area Derived from formula 2.01 m2 Jose Antonio Fabrice [employer] Work Phone: [facility] 250 DO Work Phone: 03-18-2022 08:56-0400 Body weight 104.89 kg Jose Antonio Fabrice Hoy Work Phone: [facility] 250 DO Work Phone: 03-18-2022 08:56-0400 Diastolic blood pressure 82 mm[Hg] Jose Antonio Avina Hoy Work Phone: [facility] 250 DO Work Phone: 03-18-2022 08:56-0400 Heart rate 78 /min Jose Antonio M Hoy Work Phone: [facility] 250 DO Work Phone: 03-18-2022 08:56-0400 Systolic blood pressure 140 mm[Hg] Jose Antonio M Hoy Work Phone: [facility] [address] DO Work Phone: Encounters Encounter Date Encounter Type Care Provider Facility Start: 01-30-2024 ambulatory ARABELLA CHAVEZ [facility] Start: 01-30-2024 End: 01-30-[address] ARABELLA CHAVEZ [facility] Start: 01-23-2024 End: 01-23-2024 ambulatory ARABELLA CHAVEZ [facility] Start: 01-23-2024 End: 01-23-[address] ARABELLA CHAVEZ [facility] Start: 01-20-2024 End: 01-20-2024 Admission to same day surgery center Jose Antonio Quinn [facility] Start: 01-20-2024 End: 01-20-2024 ambulatory DO Kaylinn A Dokken Facility[place] Start: 01-19-2024 ambulatory DO Kaylinn A Dokken Fac ility:[facility] Start: 01-18-2024 End: 01-18-2024 Emergency department patient visit Kaylandrean A Dokken [facility] Start: 01-17-2024 End: 01-17-2024 ambulatory ARABELLA CHAVEZ Facility[place] Start: 01-16-2024 End: 01-16-2024 ambulatory ARABELLA CHAVEZ Facility[place] Start: 01-16-2024 End: 01-16-[address] ARABELLA CHAVEZ [facility] Start: 01-09-2024 End: 01-09-2024 ambulatory ARABELLAKENJI CHAVEZ Facility[place] Start: 01-09-2024 End: 01-09-[address] ARABELLA CHAVEZ [facility] Start: 12-31-2023 End: 01-04-2024 Evaluation and management of inpatient NADEGE Huertas [facility] Start: 11-10-2023 End: 11-10-2023 ambulatory [facility] Start: 11-10-2023 End: 11-10-2023 Encounter for other preprocedural examination [facility] Start: 11-10-2023 End: 11-10-2023 Office outpatient visit 15 minutes Amanuel [facility] CO[employer] MATE-PROSPECTING OBSERVER Work Phone: [facility] Comment on above: Pre-operative cleara nce (Primary Dx); Non-ischemic cardiomyopathy (Multi); Primary hypertension; Morbid obesity (Multi) Start: 11-10-2023 End: 11-10-2023 Preoperative state Amanuel Rosalia Valladares [employer]AL [employer]UG MATE-PROSPECTING OBSERVER Work Phone: [facility] Work Phone: Start: 10-31-2023 End: 01-15-2024 ambulatory FCO COLLIER Facility:[facility] Start: 09-27-2023 End: 09-27-2023 ambulatory Kyle Calderon Facility:[facility] Start: 08-01-2023 End: 08-01-2023 ambulatory BRITTANY CHOUDHURY Not Available Start: 06-27-2023 End: 06-27-2023 ambulatory BRITTANY CHOUDHURY Not Available Start: 06-21-2023 End: 06-21-2023 ambulatory BRITTANY CHOUDHURY Not Available Start: 05-31-2023 End: 06-01-2023 Emergency department patient visit Stef Molina Jr Facility:[facility] Start: 05-31-2023 End: 05-31-2023 Emergency department patient visit MD Jose Antonio Quinn Work Phone: [facility] Work Phone: Start: 05-11-2023 End: 05-11-2023 ambulatory AMANUEL [facility] Ambulatory Start: 05-11-2023 End: 05-11-2023 Office outpatient visit 15 minutes Amanuel Lindsey [place] [employer]AL [employer]UG MATE-PROSPECTING OBSERVER Work Phone: [facility] Comment on above: Non-ischemic cardiom yopathy (CMS/HCC) (Primary Dx); Primary hypertension; Obstructive sleep apnea syndrome; Morbid obesity (CMS/HCC); Hypertension, unspecified type; SOB (shortness of breath) on exertion Start: 04-28-2023 End: 04-28-2023 ambulatory Jose Antonio uQinn Facility:[facility] Start: 04-28-2023 End: 04-28-2023 ambulatory MD Jose Antonio Quinn Work Phone: [facility] Work Phone: Start: 04-28-2023 End: 04-28-2023 Patient encounter procedure MD Jose Antonio Quinn Work Phone: [facility] [address] Work Phone: Start: 03-28-2023 Rx Renewal Jose Antonio Quinn Work Phone: [facility] 250 DO Work Phone: Start: 02-24-2023 End: 02-24-2023 Emergency department patient visit Briana Winters [facility] Start: 01-05-2023 End: 01-05-2023 ambulatory Kyle Calderon Facility:[facility] Start: 01-05-2023 End: 01-05-2023 ambulatory MD Jose Antonio Quinn Work Phone: [facility] Work Phone: Start: 01-05-2023 End: 01-05-2023 Patient encounter procedure MD Jose Antonio Quinn Work Phone: [facility] [address] Work Phone: Start: 11-30-2022 End: 11-30-2022 ambulatory Maxi Glez Other [facility] [employer] Other Start: 11-30-2022 Telephone encounter Maxi Newton [facility] Chief Service Dispatcher Start: 11-25-2022 End: 11-25-2022 ambulatory NancySeekly Other [facility] [employer] Other Start: 11-25-2022 Office outpatient ne w 45 minutes Nancy Kapadia [facility] Start: 11-22-2022 Rx Renewal Jose Antonio Quinn Work Phone: [facility] 600 DO Work Phone: Start: 11-13-2022 End: 11-14-[address] JOSE ANTONIO QUINN . Facility: Start: 11-03-2022 End: 11-03-2022 ambulatory Kyle Johnsonjulio césarjenifer Facility:[facility] Start: 11-03-2022 End: 11-03-2022 ambulatory MD Jose Antonio Quinn Work Phone: [facility] Work Phone: Start: 11-03-2022 End: 11-03-2022 Patient encounter procedure MD Jose Antonio Quinn Work Phone: [facility]-Lab [address] [place] Work Phone: Start: 11-01-2022 Rx Renewal Jose Antonio Quinn Work Phone: [facility] 250 DO Work Phone: Start: 10-19-2022 End: 10-19-2022 ambulatory Kyle Sister Bay II Other [employer] Other Start: 10-19-2022 Telephone encounter Kyle Jakub II [facility] Start: 10-07-2022 End: 10-07-2022 ambulatory Kyle Jakub II Other [employer] Other Start: 10-07-2022 Telephone encounter Kyle Sister Bay II [facility] Start: 09-29-2022 Office outpatient vi sit 25 minutes Kyle Sister Bay II [facility] Start: 09-29-2022 End: 09-29-2022 ambulatory MD Jose Antonio Quinn Work Phone: [facility] Work Phone: Start: 09-29-2022 End: 09-29-2022 Patient encounter procedure MD Jose Antonio Quinn Work Phone: [facility]XRay [facility] Start: 09-06-2022 Rx Renewal Jose Antonio Quinn Work Phone: [facility] 250 DO Work Phone: Start: 08-02-2022 End: 08-02-2022 ambulatory Kyle Sister [place] II Other [employer] Other Start: 08-02-2022 Telephone encounter Kyle Sister Bay II [facility] Start: 07-30-2022 End: 07-30-2022 ambulatory Kyle Jakub II Other [employer] Other Start: 07-30-2022 Office outpatient vi sit 25 minutes Kyle Sister Bay II [facility] Start: 07-27-2022 End: 07-27-2022 Patient encounter procedure MD Jose Antonio Quinn Work Phone: [facility]-MRI [address] Work Phone: Start: 07-22-[address] JOSE ANTONIO QUINN . Facili ty:[facility] Start: 07-07-2022 Office outpatient ne w 45 minutes Kyle Call II [facility] Start: 07-07-2022 End: 07-07-2022 ambulatory MD Jose Antonio Quinn Work Phone: [facility] Work Phone: Start: 07-07-2022 End: 07-07-2022 Patient encounter procedure MD Jose Antonio Quinn Work Phone: [facility] Start: 07-05-2022 End: 07-05-2022 Emergency department patient visit MD Jose Antonio Quinn Work Phone: [facility] Start: 06-30-2022 End: 06-30-[address] JOSE ANTONIO QUINN . Facility:[facility] Start: 05-19-2022 End: 05-19-[address] JOSE ANTONIO QUINN . Facility:[facility] Start: 05-19-2022 End: 05-19-2022 Patient encounter procedure Jose Carlos SALCEDO General Surgery [facility]/Said Jaleel Start: 05-10-2022 End: 05-10-2022 Emergency department patient visit Mamadou Gonzalez [facility] Start: 03-18-2022 Office outpatient vi sit 15 minutes Jose Antonio Quinn Work Phone: [facility] 250 DO Work Phone: Start: 03-01-2022 End: 03-01-[address] JOSE ANTONIO QUINN . Facility:[facility] Start: 02-22-2022 End: 02-22-2022 Patient encounter procedure MD Jose Antonio Quinn Work Phone: [facility] [address] Start: 02-15-2022 End: 02-16-[address] JOSE ANTONIO QUINN . Facility:[facility] Start: 02-10-2022 End: 02-10-2022 Patient encounter procedure MD Jose Antonio Quinn Work Phone: [facility] [place] Start: 01-26-2022 Rx Renewal Jose Antonio Quinn Work Phone: [facility] 250 DO Work Phone: Start: 01-22-2022 Rx Renewal Jose Antonio Quinn Work Phone: [facility] 250 DO Work Phone: Start: 10-06-2021 AUDIT Jose Antonio Quinn Work Phone: [facility] 250 DO Work Phone: Start: 10-17-2018 Patient encounter procedure PROVIDER UNKNOWN Facility:[id number] Start: 10-17-2018 Patient encounter procedure Facility:[id number] Start: 05-30-2018 End: 06-09-2018 Patient encounter procedure CEASAR GALLOWAY [facility] Start: 01-30-2018 End: 01-30-2018 Patient encounter procedure CEASAR GALLOWAY [facility] Start: 04-07-2017 End: 04-08-2017 Ambulatory DEFAULT PHYSICIAN Facility:[facility] Procedures Date Procedure Procedure Detail Performing Clinician Start: 11-10-2023 Ecg routine ecg w/le ast 12 lds w/i&r Amanuel Valladares [employer] MATE-PROSPECTING OBSERVER Work Phone: Start: 05-31-2023 SARS-CoV-2, Influenz a & RSV (PCR) MD Jose Antonio Quinn Work Phone: Start: 09-29-2022 Pelvis X-ray MD Jose Antonio Quinn Work Phone: Start: 07-27-2022 MRI of right hip MD Rachel Quinn Work Phone: Start: 07-07-2022 Pelvis X-ray MD Jose Antonio Quinn Work Phone: Start: 07-07-2022 Plain X-ray of right hip MD Jose Antonio Quinn Work Phone: Start: 07-05-2022 CT of right hip MD Tarik Quinn Work Phone: Start: 01-01-2008 Lumpectomy w/ Lymph node removal left arm Mamadou Gonzalez Appendectomy Jose Antonio Quinn Work Phone: Appendectomy Mamadou Gonzalez Cholecystectomy Jose Antonio burgess Work Phone: Cholecystectomy Mamadou Gonzalez Hysterectomy Jose Antonio Quinn Work Phone: Insertion of arterial stent Jose Antonio Quinn Work Phone: Operative procedure on foot Jose Antonio Quinn Work Phone: Comment on above: LEFT; Total abdominal hyst erectomy with bilateral salpingo-oophorectomy Mamadou Gonzalez Total colonoscopy Jose Antonio Quinn Work Phone: Comment on above: ONSET DATE [id number] JALEEL; Plan of Treatment Date Care Activity Detail Author Start: 05-10-2032 DTaP/Tdap/Td Vaccines (3 - Td or Tdap) DTaP/Tdap/Td Vaccines (3 - Td or Tdap) [facility] Start: 05-09-2024 End: 05-09-2024 Patient encounter procedure 05/09/2024 8:00 AM EDT Office Visit [address] [address] Amanuel Valladares, CO[employer]AL TUG MATE-PROSPECTING OBSERVER [address] [facility] [address] [place] [address] [facility] Start: 04-23-2024 End: 04-23-2024 Patient encounter procedure 04/23/2024 8:00 AM EDT Office Visit [address] [address] Amanuel Valladares, COASTAL TUG MATE-PROSPECTING OBSERVER [address] [facility] [address] [place] [address] [facility] Start: 03-18-2024 Influenza vaccination Influenza Vaccine (Season Ended) [facility] Start: 05-31-2023 Plain chest X-ray XR chest 2V* [facility] Start: 05-31-2023 XR Chest 2 Views [facility] Start: 05-11-2023 FUV, Provider: Amanuel Davis, Status: Pen, Time: 8:00 AM FUV, Provider: Amanuel Davis, Status: Pen, Time: 8:00 AM -[facility] 250 DO Work Phone: Start: 03-23-2023 FUV, Provider: Amanuel Davis, Status: Pen, Time: 9:00 AM FUV, Provider: Amanuel Davis, Status: Pen, Time: 9:00 AM [facility] 250 DO Work Phone: Start: 03-18-2023 Influenza vaccination Influenza Vaccine (#1) [facility] Start: 03-17-2022 FUV, Provider: Frandy Fung, Status: Pen, Time: 10:10 AM FUV, Provider: Frandy Fung, Status: Pen, Time: 10:10 AM [facility] 250 DO Work Phone: Start: 02-22-2022 End: 02-22-2022 Patient encounter procedure Departed Clinical [facility] [address] Start: 12-17-2021 FUV, Provider: Frandy Fung, Status: Pen, Time: 9:50 AM FUV, Provider: Frandy Fung, Status: Pen, Time: 9:50 AM [facility] 250 DO Work Phone: Start: 11-22-2020 COVID-19 Vaccine (3 - Moderna risk series) COVID-19 Vaccine (3 - Moderna risk series) [facility] Start: 2006 Screening for malignant neoplasm of breast Mammogram [facility] Start: 1987 Screening for malignant neoplasm of cervix [facility] Start: 1985 Hepatitis B Vaccines (1 of 3 - 19+ 3-dose series) Hepatitis B Vaccines (1 of 3 - 19+ 3-dose series) [facility] Start: 1985 Zoster Vaccines (1 of 2) Zoster Vaccines (1 of 2) [facility] Start: 1984 Diabetes mellitus screening Diabetes Screening [facility] Start: 1984 Hepatitis C screening Hepatitis C Screening [facility] Start: 1972 Pneumococcal Vaccine: Pediatrics (0 to 5 Years) and At-Risk Patients (6 to 64 Years) (1 - PCV) Pneumococcal Vaccine: Pediatrics (0 to 5 Years) and At-Risk Patients (6 to 64 Years) (1 - PCV) [facility] Start: 1972 Pneumococcal Vaccine: Pediatrics (0 to 5 Years) and At-Risk Patients (6 to 64 Years) (1 of 2 - PCV) Pneumococcal Vaccine: Pediatrics (0 to 5 Years) and At-Risk Patients (6 to 64 Years) (1 of 2 - PCV) [facility] Start: 1967 MMR Vaccines (1 of 1 - Standard series) MMR Vaccines (1 of 1 - Standard series) [facility] Start: 1966 Hepatitis B Vaccines (1 of 3 - 3-dose series) Hepatitis B Vaccines (1 of 3 - 3-dose series) [facility] Start: 1966 HIV screening HIV Screening [facility] Start: 1966 Lipid panel Lipid Panel [facility] Start: 1966 Screening for malignant neoplasm of colon [facility] Start: 1966 Yearly Adult Physical Yearly Adult Physical [facility] ECG 12 Lead ECG 12 Lead ECG Routine Pre-operative clearance 11/10/2023 2:30 PM EDT [facility] Service Area Work Phone: Patient Education [facility] Work Phone: Patient referral [facility] Work Phone: Immunizations Immunization Date Immunization Notes Care Provider Shanta graham 05-10-2022 tetanus toxoid, redu lorena diphtheria toxoid, and acellular pertussis vaccine, adsorbed Mamadou Gnozalez [facility] 05-27-2021 influenza virus vaccine, unspecified formulation Jose Antonio Quinn Work Phone: [facility] 250 DO Work Phone: 10-25-2020 Moderna COVID-19 Vaccine 100 MCG/0.5ML Intramuscular Suspension Jose Antonio M Hoy Work Phone: [facility] 250 DO Work Phone: 09-27-2020 Moderna COVID-19 Vaccine 100 MCG/0.5ML Intramuscular Suspension Jose Antonio M Hoy Work Phone: [facility] 250 DO Work Phone: 05-16-2020 influenza virus vaccine, unspecified formulation Jose Antonio M Hoy Work Phone: [facility] 250 DO Work Phone: 04-27-2020 influenza virus vaccine, unspecified formulation Jose Antonio M Hoy Work Phone: [facility] 250 DO Work Phone: 04-27-2020 influenza, seasonal, injectable Amanuel Valladares [employer] MATE-PROSPECTING OBSERVER Work Phone: [facility] Work Phone: 05-17-2019 influenza virus vaccine, unspecified formulation Jose Antonio M Hoy Work Phone: [facility] 250 DO Work Phone: 04-17-2018 influenza virus vaccine, unspecified formulation Jose Antonio M Hoy Work Phone: [facility] 250 DO Work Phone: 04-28-2016 influenza, injectabl e, quadrivalent, preservative free Jose Antonio M Hoy Work Phone: [facility] 250 DO Work Phone: 04-22-2016 influenza, seasonal, injectable MD Luke Kai Work Phone: [facility] 04-17-2016 influenza virus vaccine, unspecified formulation Jose Antonio M Hoy Work Phone: [facility] [facility] 250 DO Work Phone: 06-08-2014 tetanus toxoid, redu lorena diphtheria toxoid, and acellular pertussis vaccine, adsorbed Kyle Call II Other [facility] [employer] Other 06-01-2010 tetanus toxoid, redu lorena diphtheria toxoid, and acellular pertussis vaccine, adsorbed Mamadou Gonzalez [facility] Payers Date Payer Category Payer Unknown 1966 Unknown [id number] [id number] 1966 Unknown [id number] 2.16.840.1.349997.3.579.2.356 1966 Unknown [id number] 2.16.840.1.781030.3.579.2.593 1966 Unknown [id number] 2.16.840.1.643984.3.579.2.593 1966 Unknown [id number] 2.16.840.1.955306.3.579.2.593 1966 Unknown [id number] 2.16.840.1.774227.3.579.2.593 1966 Unknown [id number] 2.16.840.1.915190.3.579.2.593 1966 Unknown [id number] 2.16.840.1.630335.3.579.2.593 1966 Unknown [id number] 2.16.840.1.312416.3.579.2.1259 1966 Unknown [id number] 2.16.840.1.768157.3.579.2.1259 1966 Unknown [id number] 2.16.840.1.005556.3.579.2.1259 1966 Unknown [id number] 2.16.840.1.238546.3.579.2.1244 1966 Unknown [id number] 2.16.840.1.455036.3.579.2.1244 1966 Unknown [id number] 2.16.840.1.583564.3.579.2.727 1966 Unknown [id number] 2.16.840.1.524959.3.579.2.727 1966 Unknown [id number] 2.16.840.1.068376.3.579.2.727 1966 Unknown [id number] 2.16.840.1.292356.3.579.2.727 1966 Unknown [id number] 2.16.840.1.755146.3.579.2.93 1966 Unknown [id number] 2.16.840.1.381262.3.579.2.727 1966 Unknown [id number] 2.16.840.1.201186.3.579.2.727 1966 Unknown [id number] 2.16.840.1.703938.3.579.2.727 1966 Unknown [id number] 2.16.840.1.969553.3.579.2.727 1966 Unknown [id number] 2.16.840.1.518759.3.579.2.727 1966 Unknown [id number] 2.16.840.1.594655.3.579.2.727 1959 Self-pay [id number] 1959 Unknown [id number] Unknown [id number] 2.16.840.1.896816.3.579.2.531 Unknown [id number] 2.16.840.1.992358.3.579.2.531 Unknown [id number] 2.16.840.1.248681.3.579.2.531 Unknown [id number] 2.16.840.1.221595.3.579.2.531 Unknown [id number] 2.16.840.1.471886.3.579.2.531 Worker's Compensation [employer] [id number] Social History Date Type Detail Facility Start: 05-11-2023 Caffeine use Caffeine use -[facility] DO Work Phone: Comment on above: OCCASIONAL COFFEE; QUIT 07/19 PPD; Start: 06-01-2021 End: 05-19-2022 Tobacco smoking status NHIS Never smoked tobacco (finding) [facility] [place] Start: 1965 Sex Assigned At Female F [facility] Start: 05-11-2023 Sex Assigned At Female F [facility] Tobacco smoking status Never [facility] Start: 05-11-2023 End: 11-10-2023 Tobacco use and exposure Smokeless tobacco non-user [facility] Work Phone: Start: 05-11-2023 End: 11-10-2023 Alcohol intake Current drinker of alcohol (finding) [facility] Work Phone: Start: 05-11-2023 Alcohol Comment social [facility] Work Phone: Start: 1965 Sex Assigned At Not on file [facility] Work Phone: Start: 05-01-2023 End: 11-10-2023 Exposure to SARS-CoV-2 (event) Not sure [facility] Start: 05-31-2023 End: 11-10-2023 Tobacco smoking status NHIS Ex-smoker (finding) [facility] [place] History of tobacco use Current smoker [facility] Work Phone: History of tobacco use Cigarette Smoker [facility] Work Phone: Functional Status Date Assessment Result Facility 01-18-2024 Functional Status N/A [facility] 02-24-2023 Functional Status N/A [facility] 05-19-2022 Functional Status N/A [facility] 05-10-2022 Functional Status N/A [facility] Clinical Notes 02-16-2022 to 01-20-2024 Note Date & Type Note Facility 01-20-2024 Note Microbiology PROCEDURE: Catheter Tip Culture [R1] SOURCE: Cath Tip BODY SITE: Arm L COLLECTED DATE/TIME: 01/18/2024 21:37 EDT RECEIVED DATE/TIME: 01/18/2024 22:59 EDT START DATE/TIME: 01/18/2024 22:59 EDT FREE TEXT SOURCE: Lauren Patton DO, DO, Kaylinn A FINAL REPORTS Final Report [] Verified Date/Time: 01/20/2024 07:41 EDT No growth at 2 days. Performing Locations R1: This test was performed at: [facility], [address] [place] [address], [facility] , , [facility] Comment on above: Performed By: #### 1 [id number] #### [facility] [address] [place] [address] 01-19-2024 Hospital Discharg e instructions Patient Education 01/18/2024 22:31:23 PICC Home Care Guide PICC Home Care Guide A peripherally inserted central catheter (PICC) is a form of IV access that allows medicines and IV fluids to be quickly put into the blood and spread throughout the body. The PICC is a long, thin, flexible tube (catheter) that is put into a vein in a person's arm or leg. The catheter ends in a large vein just outside the heart called the superior vena cava (SVC). After the PICC is put in, a chest X-ray may be done to make sure that it is in the right place. A PICC may be placed for different reasons, such as: To give medicines and liquid nutrition. To give IV fluids and blood products. To take blood samples often. If there is trouble placing a peripheral intravenous (PIV) catheter. If cared for properly, a PICC can remain in place for many months. Having a PICC can allow you to go home from the hospital sooner and continue treatment at home. Medicines and PICC care can be managed at home by a family member, caregiver, or home health care team. What are the risks? Generally, having a PICC is safe. However, problems may occur, including: A blood clot (thrombus) forming in or at the end of the PICC. A blood clot forming in a vein (deep vein thrombosis) or traveling to the lung (pulmonary embolism). Inflammation of the vein (phlebitis) in which the PICC is placed. Infection at the insertion site or in the blood. Blood infections from central lines, like PICCs, can be serious and often require a hospital stay. PICC malposition, or PICC movement or poor placement. A break or cut in the PICC. Do not use scissors near the PICC. Nerve or tendon irritation or injury during PICC insertion. How to care for your PICC Please follow the specific guidelines provided by your health care provider. Preventing infection You and any caregivers should wash your hands often with soap and water for at least 20 seconds. Wash hands: ?Before touching the PICC or the infusion device. ?Before changing a bandage (dressing). Do not change the dressing unless you have been taught to do so and have shown you are able to change it safely. Flush the PICC as told. Tell your health care provider right away if the PICC is hard to flush or does not flush. Do not use force to flush the PICC. Use clean and germ-free (sterile) supplies only. Keep the supplies in a dry place. Do not reuse needles, syringes, or any other supplies. Reusing supplies can lead to infection. Keep the PICC dressing dry and secure it with tape if the edges stop sticking to your skin. Check your PICC insertion site every day for signs of infection. Check for: ?Redness, swelling, or pain. ?Fluid or blood. ?Warmth. ?Pus or a bad smell. Preventing other problems Do not use a syringe that is less than 10 mL to flush the PICC. Do not have your blood pressure checked on the arm in which the PICC is placed. Do not ever pull or tug on the PICC. Keep it secured to your arm with tape or a stretch wrap when not in use. Do not take the PICC out yourself. Only a trained health care provider should remove the PICC. Keep pets and children away from your PICC. How to care for your PICC dressing Keep your PICC dressing clean and dry to prevent infection. Do not take baths, swim, or use a hot tub until your health care provider approves. Ask your health care provider if you can take showers. You may only be allowed to take sponge baths. When you are allowed to shower: ?Ask your health care provider to teach you how to wrap the PICC. ?Cover the PICC with clear plastic wrap and tape to keep it dry while showering. Follow instructions from your health care provider about how to take care of your insertion site and dressing. Make sure you: ?Wash your hands with soap and water for at least 20 seconds before and after you change your dressing. If soap and water are not available, use hand commercial correspondent. ?Change your dressing only if taught to do so by your health care provider. Your PICC dressing needs to be changed if it becomes loose or wet. ?Leave stitches (sutures), skin glue, or adhesive strips in place. These skin closures may need to stay in place for 2 weeks or longer. If adhesive strip edges start to loosen and curl up, you may trim the loose edges. Do not remove adhesive strips completely unless your health care provider tells you to do that. Follow these instructions at home: Disposal of supplies Throw away any syringes in a disposal container that is meant for sharp items (sharps container). You can buy a sharps container from a pharmacy, or you can make one by using an empty, hard plastic bottle with a lid. Place any used dressings or infusion bags into a plastic bag. Throw that bag in the trash. General instructions Always carry your PICC identification card or wear a medical alert bracelet. Keep the tube clamped at all times, unless it is being used. Always carry a smooth-edge clamp with you to clamp the PICC if it breaks. Do not use scissors or sharp objects near the tube. You may bend your arm and move it freely. If your PICC is near or at the bend of your elbow, avoid activity with repeated motion at the elbow. Avoid lifting heavy objects as told by your health care provider. Keep all follow-up visits. This is important. You will need to have your PICC dressing changed at least once a week. Contact a health care provider if: You have pain in your arm, ear, face, or teeth. You have a fever or chills. You have redness, swelling, or pain around the insertion site. You have fluid or blood coming from the insertion site. Your insertion site feels warm to the touch. You have pus or a bad smell coming from the insertion site. Your skin feels hard and raised around the insertion site. Your PICC dressing has gotten wet or is coming off and you have not been taught how to change it. Get help right away if: You have problems with your PICC, such as your PICC: ?Was tugged or pulled and has partially come out. Do not push the PICC back in. ?Cannot be flushed, is hard to flush, or leaks around the insertion site when it is flushed. ?Makes a flushing sound when it is flushed. ?Appears to have a hole or tear. ?Is accidentally pulled all the way out. If this happens, cover the insertion site with a gauze dressing. Do not throw the PICC away. Your health care provider will need to check it to be sure the entire catheter came out. You feel your heart racing or skipping beats, or you have chest pain. You have shortness of breath or trouble breathing. You have swelling, redness, warmth, or pain in the arm in which the PICC is placed. You have a red streak going up your arm that starts under the PICC dressing. These symptoms may be an emergency. Get help right away. Call 911. Do not wait to see if the symptoms will go away. Do not drive yourself to the hospital. Summary A peripherally inserted central catheter (PICC) is a long, thin, flexible tube (catheter) that is put into a vein in the arm or leg. If cared for properly, a PICC can remain in place for many months. Having a PICC can allow you to go home from the hospital sooner and continue treatment at home. The PICC is inserted using a germ-free (sterile) technique by a specially trained health care provider. Only a trained health care provider should remove it. Do not have your blood pressure checked on the arm in which your PICC is placed. Always keep your PICC identification card with you. This information is not intended to replace advice given to you by your health care provider. Make sure you discuss any questions you have with your health care provider. Document Revised: 01/20/2022 Document Reviewed: 01/20/2022 [employer] Patient Education 2022 [employer]. 01/18/2024 22:31:23 PICC Removal, Adult, Care After PICC Removal, Adult, Care After The following information offers guidance on how to care for yourself after your procedure. Your health care provider may also give you more specific instructions. If you have problems or questions, contact your health care provider. What can I expect after the procedure? After the procedure, it is common to have: Tenderness or soreness. Redness, swelling, or a scab at the place where your PICC was removed (exit site). Follow these instructions at home: For the first 24 hours after the procedure: Keep the bandage (dressing) on your exit site clean and dry. Do not remove your dressing until your health care provider tells you to do so. Do not lift anything heavy or do activities that require great effort until your health care provider says it is okay. You should avoid: ?Lifting weights. ?Doing yard work. ?Doing any physical activity with repetitive arm movement. Watch closely for any signs of an air bubble in the vein (air embolism). This is a rare but serious complication. ?Signs of an air embolism include trouble breathing, wheezing, chest pain, or a fast pulse. ?If you have signs of an air embolism, call 911 right away and lie down on your left side to keep the air from moving into your lungs. After 24 hours have passed: Remove your dressing as told by your health care provider. Wash your hands with soap and water for at least 20 seconds before and after you change your dressing. If soap and water are not available, use hand commercial correspondent. Return to your normal activities as told by your health care provider. A small scab may develop over the exit site. Do not pick at the scab. When bathing or showering, gently wash the exit site with soap and water. Pat it dry. Watch for signs of infection, such as: ?A fever or chills. ?Swollen glands under your arm. ?More redness, swelling, or soreness around your arm. ?Blood, fluid, or pus coming from your exit site. ?Warmth or a bad smell coming from your exit site. ?A red streak spreading away from your exit site. General instructions Take [id number] and prescription medicines only as told by your health care provider. Do not take any new medicines without checking with your health care provider first. If you were given an antibiotic ointment, apply it as told by your health care provider. Keep all follow-up visits. This is important. Contact a health care provider if: You have a fever or chills. You have swelling at your exit site or swollen glands under your arm. You have signs of infection at your exit site. You have soreness, redness, or swelling in your arm that gets worse. Get help right away if: You have numbness or tingling in your fingers, hand, or arm. Your arm looks blue and feels cold. You have signs of an air embolism, such as trouble breathing, wheezing, chest pain, or a fast pulse. These symptoms may be an emergency. Get medical help right away. Call 911. Do not wait to see if the symptoms will go away. Do not drive yourself to the hospital. Summary After a PICC is removed, it is common to have tenderness or soreness, redness, swelling, or a scab at the exit site. Keep the bandage (dressing) over the exit site clean and dry. Do not remove the dressing until your health care provider tells you to do so. Do not lift anything heavy or do activities that require great effort until your health care provider says it is okay. Watch closely for any signs of an air bubble (air embolism). If you have signs of an air embolism, call 911 right away and lie down on your left side. This information is not intended to replace advice given to you by your health care provider. Make sure you discuss any questions you have with your health care provider. Document Revised: 01/20/2022 Document Reviewed: 01/20/2022 [employer] Patient Education 2022 [employer]. Follow Up Care 01/18/2024 19:32:36 With:Jose Antonio Quinn Address: [address] [place] [address]- Business (1) When:01/21/2024 21:58:58 Comments:Please follow-up with the infusion center tomorrow for repeat antibiotic infusion and the PICC team will reach out to you on Tuesday to schedule a time for you to come in to get the PICC replaced. Return to the ED for any new or worsening symptoms. [facility] 01-18-2024 Note ED Patient Education Note Caregiving PICC Home Care Guide A peripherally inserted central catheter (PICC) is a form of IV access that allows medicines and IV fluids to be quickly put into the blood and spread throughout the body. The PICC is a long, thin, flexible tube (catheter) that is put into a vein in a person's arm or leg. The catheter ends in a large vein just outside the heart called the superior vena cava (SVC). After the PICC is put in, a chest X-ray may be done to make sure that it is in the right place. A PICC may be placed for different reasons, such as: ? To give medicines and liquid nutrition. ? To give IV fluids and blood products. ? To take blood samples often. ? If there is trouble placing a peripheral intravenous (PIV) catheter. If cared for properly, a PICC can remain in place for many months. Having a PICC can allow you to go home from the hospital sooner and continue treatment at home. Medicines and PICC care can be managed at home by a family member, caregiver, or home health care team. What are the risks? Generally, having a PICC is safe. However, problems may occur, including: ? A blood clot (thrombus) forming in or at the end of the PICC. ? A blood clot forming in a vein (deep vein thrombosis) or traveling to the lung (pulmonary embolism). ? Inflammation of the vein (phlebitis) in which the PICC is placed. ? Infection at the insertion site or in the blood. Blood infections from central lines, like PICCs, can be serious and often require a hospital stay. ? PICC malposition, or PICC movement or poor placement. ? A break or cut in the PICC. Do not use scissors near the PICC. ? Nerve or tendon irritation or injury during PICC insertion. How to care for your PICC Please follow the specific guidelines provided by your health care provider. Preventing infection ? You and any caregivers should wash your hands often with soap and water for at least 20 seconds. Wash hands: ? Before touching the PICC or the infusion device. ? Before changing a bandage (dressing). Do not change the dressing unless you have been taught to do so and have shown you are able to change it safely. ? Flush the PICC as told. Tell your health care provider right away if the PICC is hard to flush or does not flush. Do not use force to flush the PICC. ? Use clean and germ-free (sterile) supplies only. Keep the supplies in a dry place. Do not reuse needles, syringes, or any other supplies. Reusing supplies can lead to infection. ? Keep the PICC dressing dry and secure it with tape if the edges stop sticking to your skin. ? Check your PICC insertion site every day for signs of infection. Check for: ? Redness, swelling, or pain. ? Fluid or blood. ? Warmth. ? Pus or a bad smell. Preventing other problems ? Do not use a syringe that is less than 10 mL to flush the PICC. ? Do not have your blood pressure checked on the arm in which the PICC is placed. ? Do not ever pull or tug on the PICC. Keep it secured to your arm with tape or a stretch wrap when not in use. ? Do not take the PICC out yourself. Only a trained health care provider should remove the PICC. ? Keep pets and children away from your PICC. How to care for your PICC dressing ? Keep your PICC dressing clean and dry to prevent infection. ? Do not take baths, swim, or use a hot tub until your health care provider approves. Ask your health care provider if you can take showers. You may only be allowed to take sponge baths. When you are allowed to shower: ? Ask your health care provider to teach you how to wrap the PICC. ? Cover the PICC with clear plastic wrap and tape to keep it dry while showering. ? Follow instructions from your health care provider about how to take care of your insertion site and dressing. Make sure you: ? Wash your hands with soap and water for at least 20 seconds before and after you change your dressing. If soap and water are not available, use hand commercial correspondent. ? Change your dressing only if taught to do so by your health care provider. Your PICC dressing needs to be changed if it becomes loose or wet. ? Leave stitches (sutures), skin glue, or adhesive strips in place. These skin closures may need to stay in place for 2 weeks or longer. If adhesive strip edges start to loosen and curl up, you may trim the loose edges. Do not remove adhesive strips completely unless your health care provider tells you to do that. Follow these instructions at home: Disposal of supplies ? Throw away any syringes in a disposal container that is meant for sharp items (sharps container). You can buy a sharps container from a pharmacy, or you can make one by using an empty, hard plastic bottle with a lid. ? Place any used dressings or infusion bags into a plastic bag. Throw that bag in the trash. General instructions ? Always carry your PICC identification card or wear a medical alert bracelet. ? Keep the tube clamped at all t (more content not included)... [facility] 01-18-2024 Evaluation + Plan note Extrac edd from: Title:ED Note Author:Lauren Patton DO Date :01/18/24 Occluded PICC line (T82.898A : Other specified complication of vascular prosthetic devices, implants and grafts, initial encounter) Ordered: CV PICC Line Insertion Orders: ceftriaxone, 2 gm, IV, Daily, X 3 day(s), # 3 EA, Refills(s) 0 ceftriaxone + Sodium Chloride 0.9% intravenous solution 50 mL, 2,000 mg = 1 EA, Injection, IV Piggyback, Once, Stop date 01/18/24 20:31:00 EDT, STAT, Start date 01/18/24 20:31:00 EDT, 100 mL/hr, Infuse over 30 minute(s) Catheter Tip Culture PICC Line ([facility]) Diagnostic Tests Pending * Catheter Tip Culture 01/18/24 Future Scheduled Tests Radiology* CV PICC Line Insertion 01/18/[address] [facility]07-03-2024 Evaluation + Plan note Future Scheduled Tests Radiology* CV PICC Line Insertion 01/18/[address] [facility]04-25-2024 Evaluation + Plan note* Assessment & Plan Note - KADE Riggs - 11/10/2023 3:45 PM EDTAssociated Problem(s): Morbid obesity (Multi) Reviewed the merits of healthy lifestyle choices on overall cardiovascular health. [facility] Work Phone: 1([phone]) 330-371804-25-2024 Evaluation + Plan note* Assessment & Plan Note - KADE Riggs - 11/10/2023 3:45 PM EDTAssociated Problem(s): Hypertension Optimal in office [facility] Work Phone: 1(888) 336-116204-25-2024 Evaluation + Plan note* Assessment & Plan Note - KADE Riggs - 11/10/2023 3:45 PM EDTAssociated Problem(s): Non-ischemic cardiomyopathy (Multi) HF improved EF 64% December 2020 MUGA (08/2020 TTE EF 30%) FC II Stage C Remains on optimal GDMT [facility] Work Phone: 1(929) 106-130404-25-2024 Miscellaneous Notes* Assessment & Plan Note - KADE Riggs - 11/10/2023 3:45 PM EDTAssociated Problem(s): Morbid obesity (Multi) Reviewed the merits of healthy lifestyle choices on overall cardiovascular health. * Assessment & Plan Note - KADE Riggs - 11/10/2023 3:45 PM EDT Associated Problem(s): Hypertension Optimal in office * Assessment & Plan Note - KADE Riggs - 11/10/2023 3:45 PM EDT Associated Problem(s): Non-ischemic cardiomyopathy (Multi) HF improved EF 64% December 2020 MUGA (08/2020 TTE EF 30%) FC II Stage C Remains on optimal GDMT documented in this [facility] Work Phone: 1(847) 178-953704-25-2024 History of Present illness Narrative* KADE Riggs - 11/10/2023 2:30 PM EDT Chief Complaint Doing good Reason for Visit [...] without voiced cardiovascular complaints. Patient presents to [facility] to obtain cardiac risk stratification prior to a lumbarfusion. Surgeon: Dr. Alexander. Planned date: December 02, 2023 Patient presents to the office today with activity level > 4 METS. Daily activity includes: ADLs, housework, works full-time at [employer] Total DASI: 31.45 METs: 6.6 EKG in office: Normal sinus rhythm, nonspecific changes. No ischemia. ACC/AHA guidelines: 1. Major clinical markers: -Acute coronary syndrome or MD within 30 days: No -Decompensated heart failure: No -Significant arrhythmia: No -Severe valvular heart disease: No 2. Intermediate clinical markers -History of ischemic heart disease (prior MD, current chest pain secondary to ischemia, use [...] proceed with surgical procedure. Amanuel Valladares MSN, KADE, PMHNP-[facility] Please excuse any errors in grammar or translation related to this dictation. Voice recognition software was utilized to prepare this document. [facility] Work Phone: 1(934) 603-765604-25-2024 Instructions* Patient Instructions* KADE Riggs - 11/10/2023 2:30 PM EDT [...] making process incorporating patients unique circumstances, the followingtreatment plan will be initiated: 1. Prescription drug management of cardiovascular medication for efficacy, adherence to treatment, side effect assessment and polypharmacy. Current treatment clinically warranted and to continue without modifications. 2. Return for follow-up; in the interim, contact the office if new symptoms arise. As scheduled documented in this encounterUnSelect [facility] Work Phone: [phone]) 380-233810-25-2023 Evaluation + Plan note* Assessment & Plan Note - KADE Riggs - 05/11/2023 8:41 AM EDTAssociated Problem(s): SOB (shortness of breath) on exertion No evidence of volume overload Minimal complaints mostly due to deconditioning [facility] Work Phone: [phone] 176-554610-25-2023 Miscellaneous Notes* Assessment & Plan Note - KADE Riggs - 05/11/2023 8:41 AM EDTAssociated Problem(s): SOB (shortness of breath) on exertion No evidence of volume overload Minimal complaints mostly due to deconditioning * Assessment & Plan Note - KADE Riggs - 05/11/2023 8:40 AM EDT Associated Problem(s): Hypertension Optimal in office * Assessment & Plan Note - KADE Riggs - 05/11/2023 8:40 AM EDT Associated Problem(s): Non-ischemic cardiomyopathy (CMS/HCC) HF improved EF 64% December 2020 MUGA (08/2020 TTE EF 30%) FC II Stage C Remains on optimal GDMT * Assessment & Plan Note - KADE Riggs - 05/11/2023 8:31 AM EDT Associated Problem(s): Morbid obesity (CMS/HCC) Reviewed the merits of healthy lifestyle choices on overall cardiovascular health. * Assessment & Plan Note - KADE Riggs - 05/11/2023 8:30 AM EDT Associated Problem(s): Sleep apnea Remains compliant with CPAP * Assessment & Plan Note - KADE Riggs - 05/11/2023 8:29 AM EDT Associated Problem(s): Cardiac and Vasculature 2017 Cardiac cath angiographically normal coronaries: EF 40% documented in this [facility] Work Phone: [phone]) 638-661310-25-2023 Evaluation + Plan note* Assessment & Plan Note - KADE Riggs - 05/11/2023 8:40 AM EDTAssociated Problem(s): Hypertension Optimal in office [facility] Work Phone: [phone]) 961-934210-25-2023 Evaluation + Plan note* Assessment & Plan Note - KADE Riggs - 05/11/2023 8:40 AM EDTAssociated Problem(s): Non-ischemic cardiomyopathy (CMS/HCC) HF improved EF 64% December 2020 MUGA (08/2020 TTE EF 30%) FC II Stage C Remains on optimal GDMT [facility] Work Phone: [phone]) 799-497910-25-2023 Evaluation + Plan note* Assessment & Plan Note - KADE Riggs - 05/11/2023 8:31 AM EDTAssociated Problem(s): Morbid obesity (CMS/HCC) Reviewed the merits of healthy lifestyle choices on overall cardiovascular health. [facility] Work Phone: [phone]) 248-649610-25-2023 Evaluation + Plan note* Assessment & Plan Note - KADE Riggs - 05/11/2023 8:30 AM EDTAssociated Problem(s): Sleep apnea Remains compliant with CPAP [facility] Work Phone: [phone]) 814-544310-25-2023 Evaluation + Plan note* Assessment & Plan Note - Amanuel K KADE Valladares - 05/11/2023 8:29 AM EDTAssociated Problem(s): Cardiac and Vasculature 2017 Cardiac cath angiographically normal coronaries: EF 40% [facility] Work Phone: [phone] History of Present illness Narrative* Amanuel Rosalia KADE Valladares - 05/11/2023 8:00 AM EDT Chief Complaint Doing fine Reason for Visit [...] She is able to walk into the [facility] without any complaints. She isactively working on weight loss. 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 Denies any change in [...] choices on overall cardiovascular health. Non-ischemic cardiomyopathy ([facility]) HF improved EF 64% December 2020 MUGA (08/2020 TTE EF 30%) FC II Stage C Remains on optimal GDMT Hypertension Optimal in office SOB (shortness of breath) on exertion No evidence of volume overload Minimal complaints mostly due to deconditioning Plan: Through informed decision making process incorporating patients unique circumstances, the followingtreatment plan will be initiated: 1. Prescription drug management of cardiovascular medication for efficacy, adherence to treatment, side effect assessment and polypharmacy. Current treatment clinically warranted and to continue without modifications. Return for follow-up; in the interim, contact the office if new symptoms arise. 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 Reviewed diet, exercise and weight control. Reviewed medications and side effects in detail. Amanuel Valladares MSN, COASTAL TUG MATE-PROSPECTING OBSERVER, PMHNP-BC [facility] Please excuse any errors in grammar or translation related to this dictation. Voice recognition software was utilized to prepare this document. [facility] Work Phone: [phone]) [phone] Instructions* Patient Instructions* KADE Riggs - 05/11/2023 8:00 AM EDT [...] making process incorporating patients unique circumstances, the followingtreatment plan will be initiated: 1. Prescription drug management of cardiovascular medication for efficacy, adherence to treatment, side effect assessment and polypharmacy. Current treatment clinically warranted and to continue without modifications. Return for follow-up; in the interim, contact the office if new symptoms arise. PARISH VISITOR annual follow-up [facility] Work Phone: [phone]) 767-134008-10-2023 Hospital Discharge instructions Patient Education 02/24/2023 13:18:12 Skin Abscess Skin Abscess A skin abscess is an infected area on or under your skin that contains a collection of pus and other material. An abscess may also be called a furuncle, carbuncle, or boil. An abscess can occur in oron almost any part of your body. Some [...] Follow these instructions at home: Medicines Take sqbz-rrs-dmshhio and prescription medicines only as told by your health care provider. If you were prescribed an antibiotic medicine, take it as told by your health care provider. Do notstop taking the antibiotic even if you start [...] dressing or gauze. If soap and water arenot available, use hand commercial correspondent. Check your abscess every day for signs [...] provider. Document Revised: 04/12/2022 Document Reviewed: 04/12/2022 [employer]Chat Patient Education 2022 [employer]. 02/24/2023 13:18:12 Cellulitis, Adult Cellulitis, Adult Cellulitis [...] Follow these instructions at home: Medicines Take maif-yts-aqyoory and prescription medicines only as told by your health care provider. If you were prescribed an antibiotic medicine, take it as told by your health care provider. Do notstop taking the antibiotic even if you start [...] care provider. This is important. These visits letyour health care provider make sure a more [...] such as antibiotic medicines or antihistamines. Take aftf-wuf-jpyixma and prescription medicines only as told by your health care provider. If you were prescribed an antibiotic medicine, do not stop taking the antibiotic even if you start to feel better. Contact a health care provider if your symptoms do not begin to improve within 1 2 days of startingtreatment or your symptoms get worse. Keep all follow-up visits as told by your health care provider. This is important. These visits letyour health care provider make sure that a more serious infection is not developing. This information is not intended to replace advice given to you by your health care provider. Make sure you discuss any questions you have with your health care provider. Document Revised: 04/15/2022 Document Reviewed: 04/15/2022 HipChat Patient Education 2022 [employer]. Follow Up Care 02/24/2023 11:55:51 With:Jose Antonio Quinn Address: [address] [place] [id number] Business (1) When:02/27/2023 13:03:[address] [facility]08-10-2023 Evaluation + Plan noteExtracted from: Title:ED Note Author:Rodrick Mobley PA-C te:02/24/23 Abscess (L02.91: Cutaneous a bscess, unspecified) Cellulitis (L03.90: Cellulitis, unspecified) Orders: cephalexin, 500 mg = 1 cap(s), Oral, TID, Take one capsule by mouth three times a day for ten days, # 30 cap(s), Refills(s) 0, Pharmacy: [facility], 155, cm, 02/24/23 12:00:00 EDT, Height/Length Dosing, 108.2, kg, 02/24/23 12:00:00 EDT, Weight Dosing doxycycline, 100 mg = 1 tab(s), Oral, BID, X 10 day(s), # 20 tab(s), Refills(s) 0, Pharmacy: [facility], 155, cm, 02/24/23 12:00:00 EDT, Height/Length Dosing, 108.2, kg, 02/24/23 12:00:00 EDT, Weight Dosing Post-op [facility]05-11-2023 Evaluation note* Encounter Date Diagnosis Assessment Notes Treatment Notes Treatment Clinical Notes November, Lumbosacral radiculopathy (ICD-10 - M54.17) IrReviewed x-ray of the pelvis from 09/29/2022 and which shows healing pubic [place] fractures. Upon examination noted right SI joint [...] continue with current prescriptions and will get jfks-glu-ecoluot Thermo patches. Follow-up in 6 weeks. Medical [...] Z13.31) PHQ reviewed score 0 negative screening [employer] Other 03-15-2023 Evaluation note* Encounter Date Diagnosis [...] with me on a as needed basis. [employer] Other 01-13-2023 Evaluation note* Encounter Date Diagnosis [...] right lower extremity. Recommended continued Tylenol and rtjj-ypn-pdbsvld anti-inflammatory use. Also recommended continued calcium and vitamin D supplementation which she has already been doing. I will plan to check back with her in about 8 weeks with repeat AP pelvis, inlet, outlet views to check on the healing progress. [employer] Other 12-21-2022 Evaluation note* Encounter Date Diagnosis [...] work until we get these MRI results. [employer] Other 10-24-2022 Evaluation + Plan noteExtracted from: Title:ED Note Author:Mamadou Gonzalez DO Date: Finger laceration (S61.219A: Laceration without foreign body of unspecified finger without damage to nail, initial encounter) Orders: tetanus/diphtheria/pertussis, acel (Tdap), 0.5 mL, Injection, Intramuscular-Immunization, Once, Stop date 05/10/22 9:16:00 EDT, STAT, Start date 05/10/22 9:16:[address] [facility]10-24-2022 Hospital Discharge instructions Follow Up Care 05/10/2022 09:04:11 With:Jose Antonio Quinn Address: [address] [place], [place] [address]- Business (1) When:Within 3 Day(s) [facility]08-02-2022 NotePROCEDURE: XR HIPS HEATH 5V W [...] authenticated by: JOSÉ MIGUEL SERNA Date: 2022-02-16 06:14[facility] Future Appointments Appointment Date:05/25/2022 02:40:00 PM Scheduled Provider:Jose Carlos SALCEDO MD Location:[facility] Appointment Type: Established 15 Diagnostic Tests Pending * Wound Culture 05/19/22 General Surgery [place] Evaluation + Plan note Future Appointments Appointment Date:01/17/2024 09:30:00 AM Scheduled Provider: [facility] note[facility] assessment information available [facility] Work Phone: Evaluation noteNo InformationNort [employer] Other Evaluation note* Diagnosis Non-ischemic cardiomyopathy (CMS/HCC)- Primary Other primary cardiomyopathies Primary hypertension Unspecified essential hypertension Obstructive sleep apnea syndrome Obstructive sleep apnea (adult) (pediatric) Morbid obesity (CMS/HCC) Morbid obesity Hypertension, unspecified type SOB (shortness of breath) on exertion Shortness of breath documented in this encounter [facility] Work Phone: Evaluation note* Diagnosis Pre-operative clearance- Primary Unspecified pre-operative examination Non-ischemic cardiomyopathy (Multi) Other primary cardiomyopathies Primary hypertension Unspecified essential hypertension Morbid obesity (Multi) Morbid obesity documented in this encounter [facility] Work Phone: History general Narrative - Reported* Type Description Date Medical History RA Surgical History hysterectomy Surgical History cholecystectomy Surgical History appendectomy Surgical History left foot surgery OrderUp [facility] [employer] Other History general Narrative - Reported* Type Description Date Medical History RA Surgical History hysterectomy Surgical History cholecystectomy Surgical History appendectomy Surgical History left foot surgery Hospitalization History see surg HX OrderUp [facility] [employer] Other Hospital course Narrative No data available for this section [facility] No data available for this section General Surgery [place] Progress note No data available for this section [facility] HospitalReason for referral (narrative)* Consultation (Routine) - Authorized Specialty Diagnoses / Procedures Referred By Reema rodriguez Referred To Contact Cardiology Diagnoses Non-ischemic cardiomyopathy (CMS/HCC) Primary hypertension Obstructive sleep apnea syndrome Procedures Follow Up In Cardiology Amanuel Valladares APRN-CNP [address] [facility] 2, [address] [address] Referral ID Status Reason Start Date Expiration Date V isits Requested Visits Authorized [id number] Authorized 05/11/2023 05/10/2024 1 1 [facility] Work Phone: Summary Purpose Family History Unknown Family Member Name Dates Details Heart [...] FH: diabetes mellitus: Kaydene r(V18.0, Z83.3) Status:Active Relationship Condition Age at [...] FH: diabetes mellitus: Kaydene r(V18.0, Z83.3) Status:Active Advance Directives Advance Directive Response Recorded Date/ Time Advance [...] Z79.899 Cold symptoms Chief Complaint * FELICITY VILLAR is being seen for an annual follow-up [...] clearance Procedures ECG 12 Lead Amanuel Valladares, COASTAL TUG MATE-PROSPECTING OBSERVER [address] [facility] [address], [address] [place] [address] Referral ID Status Reason Start Date Expiration Date V isits Requested Visits Authorized [id number] Authorized 11/10/2023 11/09/2024 1 1 Reason Aqua therapy - evalu ate and treat Diagnosis 1 Lumbosacral radiculo vanessa (M54.17) Referral Organization [facility] urosurger Referring Provider First Name Nancy Referring Provider Last Name [place] Referring Provider Specialty Nurse Pract itioner Referred Organization [facility] Referred Address [address] [place], [place],[address] Referred Provider Specialty Physical The rapist Referral Priority Routine Reason evaluate for Si inje ction Diagnosis 1 Lumbosacral radiculo vanessa (M54.17) Referral Organization [facility] Referring Provider First Name Nancy Referring Provider Last Name [place] Referring Provider Specialty Nurse Pract itioner Referred Organization [facility] Pain Managemen t Referred Provider Maxi Glez Referred Address [address] [facility] ,[place], [place],[address] Referred Provider Specialty Pain Medicin e Referral Priority Routine Additional Source Comments INFORMATION SOURCE (unrecogn ized section and content) DATE CREATED AUTHOR 01/11/2018 [facility] DATE CREATED AUTHOR AUTHOR'S ORGANIZ ATION 08/11/2018 [facility] DATE CREATED AUTHOR AUTHOR'S ORGANIZ ATION 10/20/2018 [facility] DATE CREATED AUTHOR AUTHOR'S ORGANIZ ATION 10/21/2018 [facility] Center DATE CREATED AUTHOR AUTHOR'S ORGANIZ ATION 01/28/2021 [facility] DATE CREATED AUTHOR AUTHOR'S ORGANIZ ATION 03/19/2022 [employer] DATE CREATED AUTHOR AUTHOR'S ORGANIZ ATION 11/19/2022 [facility] DATE CREATED AUTHOR AUTHOR'S ORGANIZ ATION 08/01/2023 [facility] Special[facility] EPIC DATE CREATED AUTHOR AUTHOR'S ORGANIZ ATION 10/07/2023 [facility] DATE CREATED AUTHOR AUTHOR'S ORGANIZ ATION 11/12/2023 [facility] DATE CREATED AUTHOR AUTHOR'S ORGANIZ ATION 01/10/2024 [facility] DATE CREATED AUTHOR AUTHOR'S ORGANIZ ATION 01/17/2024 [facility] DATE CREATED AUTHOR AUTHOR'S ORGANIZ ATION 01/19/2024 [facility] DATE CREATED AUTHOR AUTHOR'S ORGANIZ ATION 01/21/2024 [facility] DATE CREATED AUTHOR AUTHOR'S ORGANIZ ATION 01/31/2024 [facility] Care Teams (unrecognized sec tion and content) Personnel Name: Jose Antonio Quinn MD Address: Address: [address] [place] [address] Team Status: Inactive Member Role Status Dates Jose Antonio Quinn MD Primary Care Provider Active Kyle Calderon MD Attending Provider Active Team Status: Active Member Role Status Dates Jose Antonio Quinn MD Primary Care Provider Active Team Status: Inactive Member Role Status Dates Jose Antonio Quinn MD Primary Care Provider Active Narayan Bridges APRN Emergency Provider Active Team Status: Inactive Member Role Status Dates Jose Antonio Quinn MD Primary Care Provider Active Kyle aCll II, MD Attending Provider Active Loss Prevention Officer Relationship Specialty Start Date End Date Jose Antonio Quinn MD [address] [place] [address] PCP - General 09/04/20 Team Status: Inactive Member Role Status Dates Jose Antonio Quinn MD Primary Care Provider Active Stef Molina Jr, MD Emergency Provider Active Loss Prevention Officer Relationship Specialty Start Date End Date Jose Antonio Quinn MD [address] [place], [place] [address], [place] [address] PCP - General 09/04/20 Goals (unrecognized section [...] this section No data available for this section No data available for this section No data available for this section No data available for this section No data available for this section REASON FOR VISIT (unrecogniz ed section and content) Reason Comments Follow-up Overdue rx Reason Comments Procedure 5-17 LUMBAR DECOMPRE SSION AMIRA Specialty Diagnoses / Procedures Referred By Contac t Referred To Contact Diagnoses Pre-operative clearance Procedures ECG 12 Lead Amanuel Valladares, COASTAL TUG MATE-PROSPECTING OBSERVER [address] [facility] 2, [facility] [address] [place] [address] Referral ID Status Reason Start Date Expiration Date V isits Requested Visits Authorized [id number] Authorized 11/10/2023 11/09/2024 1 1 FOR RECORDS [...] BE BASED ON THE PRIMARY CLINICAL RECORDS. [employer] provides no warranty or guarantee of the accuracy or completeness of information in this document.
== END 2024-02-03 09:20 | disposition home or self-care (01) ==
LOC: EC 09:19
PROVIDERS: PCP Family Medicine; Visit Provider Orthopaedic Surgery Orthopaedic Surgery of the Spine
DX: M54.50 Low back pain, unspecified (principal); M43.16 Spondylolisthesis, lumbar region
CPT/HCPCS: 72100

== ENCOUNTER 2024-06-22 11:08 | Outpatient (OUT) | payer BC, SELFPAY ==
--- NOTE | 2024-06-22 | XR_ITS ---
The [address] [address] Patient Name: FELICITY PHILLIPS MRN: [id number] date: 1965 Sex: F Assigned Patient Location: Current Patient Location: Accession/Order Number: [id number] Exam Date: 06/22/2024 11:10 Report Date: 06/24/2024 04:49 At the request of: FCO CANDELARIO Procedure: XR lumbar spine min 4V EXAMINATION: XR lumbar spine min 4V HISTORY: LUMBAR SPINE PAIN COMPARISON: XR lumbar spine 02/03/2024 FINDINGS: BONES: 16 mm anterior listhesis of L4 on 5 with posterior mechanical fusion via pedicle screws and rods; no change in alignment between neutral, flexion, extension. No hardware fracture or loosening. Mild right convex curvature of lumbar spine. DISC SPACES: Moderate-marked narrowing L4-L5, likely with posterior central disc bulging. Mild narrowing L5-S1. PARASPINOUS: Negative. No paraspinous abnormality is seen. OTHER: Negative. XR/XR lumbar spine min 4V IMPRESSION: 1. Stable surgical changes without evidence of hardware failure. 2. Grade 3 anterior listhesis of L4 on 5 with prior posterior mechanical fusion; no change in alignment during flexion and extension 3. Stable degenerative changes. Electronically authenticated by: JOSÉ MIGUEL SERNA Date: 06/24/2024 04:49
== END 2024-06-22 11:09 | disposition home or self-care (01) ==
LOC: EC 11:09
PROVIDERS: PCP Family Medicine; Visit Provider Orthopaedic Surgery Orthopaedic Surgery of the Spine
DX: M54.50 Low back pain, unspecified (principal); M43.26 Fusion of spine, lumbar region; M51.369 Other intervertebral disc degeneration, lumbar region without mention of lumbar back pain or lower extremity pain
CPT/HCPCS: 72110

== ENCOUNTER 2024-10-02 12:58 | Outpatient (OUT) | payer BC, SELFPAY ==
--- NOTE | 2024-10-02 13:12 | XR_ITS ---
[address] [address] Patient Name: FELICITY PHILLIPS MRN: [id number] date: 1965 Sex: F Assigned Patient Location: [facility] Current Patient Location: [facility] Accession/Order Number: [id number] Exam Date: 10/02/2024 13:42 Report Date: 10/02/2024 13:42 At the request of: JOSE ANTONIO QUINN MD Procedure: XR knee RT 3V RIGHT KNEE - 3 views CLINICAL HISTORY: Knee Pain COMPARISON: None FINDINGS: No knee joint effusion. Mild degenerative changes without acute bony process. XR/XR knee RT 3V IMPRESSION: MILD DEGENERATIVE CHANGES OF THE RIGHT KNEE WITHOUT ACUTE BONY PROCESS. Impression dictated by: Lorenzo Coker Jr.OReilly10/02/2024 1:42 PM Dictation Location: [place] [address] Electronically authenticated by: [id number] Date: 10/02/2024 13:42
== END 2024-10-02 12:59 | disposition home or self-care (01) ==
PROVIDERS: PCP Family Medicine; Visit Provider Family Medicine
DX: M25.561 Pain in right knee (principal); M25.461 Effusion, right knee
CPT/HCPCS: 73562